=== PATIENT | female | born 1940 | race Caucasian/White ===

== ENCOUNTER 2016-08-17 08:51 | Day surgery (SDC) | payer MEDICARE ==
[2016-08-13 15:18] VITALS: BMI 48.2
[~2016-08-17 08:51] MED LIST: LACTATED RINGERS 1,000 ML IV SCH; LIDOCAINE 1% 20 ML VIAL (10MG/ML) FOR IV START INTRADERMA PRN
[2016-08-17 09:14] VITALS: TEMP 98.3
[2016-08-17 09:43] LABS: Glucose,Whole Blood 87 mg/dL (75-99)
[2016-08-17] MEDS ORDERED: PROPOFOL 10 MG/ML 20 ML VIAL IV ONE (09:48)
[2016-08-17] MEDS ORDERED: GLYCOPYRROLATE 0.2 MG/ML 2 ML VIAL ONE (09:48)
--- NOTE | 2016-08-17 10:01 | P.GSHP ---
History of Present Illness H&P Date: 08/17/16 Chief Complaint: GI bleed, anemia This is a 76-year-old female referred from Dr. Jannette schaeffer. Patient presents today for EGD and colonoscopy. She's had issues with GI bleed and melanotic stool. - Constitutional Constitutional: Reports as per HPI Past Medical History Past Medical History: Atrial Fibrillation, Atrial Flutter, Asthma, Heart Failure , COPD, Diabetes Mellitus, Hyperlipidemia, Hypertension, Osteoarthritis (OA), Pneumonia, Skin Disorder, Sleep Apnea/CPAP/BIPAP Additional Past Medical History / Comment(s): heart valve problem 1 year ago- not sure of name, no cpap used, anemia, "chocolate" color stool, degenerative arthritis, "Bite" swenson on arms-cause unknown, no current rx for diabetes-diet control, leakage of urine, uses walker History of Any Multi-Drug Resistant Organisms: None Reported Past Surgical History: Appendectomy, Bariatric Surgery, Hysterectomy, Joint Replacement, Orthopedic Surgery, Tonsillectomy Additional Past Surgical History / Comment(s): Picc line insertion/later removed , lap band, right knee replacement x 2 & left knee replaced with revision, L ganglion wirst surg., left ankle ORIF, right trigger thumb surg. juan cataracts Past Anesthesia/Blood Transfusion Reactions: Previous Problems w/ Anesthesia Additional Past Anesthesia/Blood Transfusion Reaction / Comment(s): difficulty waking up @times Past Psychological History: Depression Additional Psychological History / Comment(s): . Smoking Status: Never smoker Past Alcohol Use History: Rare Past Drug Use History: None Reported - Past Family History Daughter(s) Family Medical History: Deep Vein Thrombosis (DVT), Pulmonary Embolus Father Family Medical History: Cancer Mother Additional Family Medical History / Comment(s): Mother had hypotension. Medications and Allergies Home Medications Medication Instructions Recorded Confirmed Type Verapamil HCl [Verapamil ER] 120 mg PO DAILY 04/16/14 08/17/16 History Acetaminophen [Tylenol] 325 mg PO Q4H PRN 08/13/16 08/17/16 History Atorvastatin Calcium [Lipitor] 80 mg PO DAILY 08/13/16 08/17/16 History Cholecalciferol [Vitamin D3] 1,000 unit PO DAILY 08/13/16 08/17/16 History Escitalopram [Lexapro] 20 mg PO DAILY 08/13/16 08/17/16 History Lisinopril 40 mg PO DAILY 08/13/16 08/17/16 History Allergies Allergy/AdvReac Type Severity Reaction Status Date / Time thallium-201 Allergy Intermediate Rash/Hives Verified 08/13/16 15:00 Sulfa (Sulfonamide AdvReac Severe low Verified 08/13/16 15:00 Antibiotics) hemoglobin aspirin AdvReac Mild blood in Verified 08/13/16 15:00 stool vancomycin AdvReac Rash/Hives Verified 08/13/16 15:00 steri strips AdvReac Mild blisters Uncoded 08/13/16 15:00 skin Surgical - Exam Vital Signs Temp Pulse Resp BP Pulse Ox 98.3 F 93 16 180/86 95 08/17/16 09:12 08/17/16 09:12 08/17/16 09:12 08/17/16 09:12 08/17/16 09:12 - General well developed, no distress - Eyes PERRL - ENT normal pinna - Neck no masses - Respiratory normal expansion - Cardiovascular Rhythm: regular - Abdomen Abdomen: soft, non tender Assessment and Plan Plan: GI bleed. We'll perform EGD and colonoscopy.
--- NOTE | 2016-08-17 10:29 | P.OP ---
Date of Procedure: 08/17/16 Preoperative Diagnosis: GI bleed Anemia Postoperative Diagnosis: Mild antral gastritis No evidence of upper GI bleed Mild diverticulosis Internal and external hemorrhoids Procedure(s) Performed: EGD Colonoscopy Anesthesia: MAC Surgeon: Jose Lara Pathology: other (Antrum) Condition: stable Disposition: PACU Description of Procedure: The patient's placed on the endoscopy table in the lateral position. She received IV sedation. The gastroscope some placed oropharynx passed in the esophagus and into the stomach. Scope was then placed through the pylorus. The first and second portion of the duodenum. Normal. Scope was then brought back the antrum and this appeared mildly inflamed. A biopsies was performed. Scope was unretroflexed and remainder stomach appeared normal. The GE junction was at 40 cm. The distal esophagus appeared normal. The proximal esophagus. Normal. Scope was withdrawn for patient. Next digital rectal exam was performed which revealed internal and external hemorrhoids. Flexible colonoscope was then placed patient anus passed throughout the entire colon. The ileocecal valve sutures. The cecum, ascending and transverse colon appeared normal. The descending and sigmoid colon had a few scattered diverticula. There is no evidence of GI bleed. Scope was then brought back the rectum and this appeared normal. Scope was withdrawn for patient.
[2016-08-17 10:50] VITALS: BP 141/78; PULSE 92; RESP 18
== END 2016-08-17 11:26 | disposition home or self-care (01) ==
LOC: ORWHC2ENDO 08:51
PROVIDERS: ATTEND Surgery
DX: K29.50 Unspecified chronic gastritis without bleeding (principal); K20.8 Other esophagitis; K57.30 Diverticulosis of large intestine without perforation or abscess without bleeding; K64.8 Other hemorrhoids; K64.4 Residual hemorrhoidal skin tags; D64.9 Anemia, unspecified; Z87.19 Personal history of other diseases of the digestive system; I48.91 Unspecified atrial fibrillation; I48.92 Unspecified atrial flutter; I11.0 Hypertensive heart disease with heart failure; I50.9 Heart failure, unspecified; E78.5 Hyperlipidemia, unspecified; G47.30 Sleep apnea, unspecified; Z98.84 Bariatric surgery status; F32.9 Major depressive disorder, single episode, unspecified; Z79.899 Other long term (current) drug therapy; Z91.09 Other allergy status, other than to drugs and biological substances
CPT/HCPCS: 88305; 88342; 45378; 43239; J2704

== ENCOUNTER → 2018-04-25 | Outpatient (CLI) | payer MEDICARE ==
[2018-04-25 11:08] LABS: HCT 40.1 % (34.0-46.0); HGB 12.7 gm/dL (11.4-16.0); MCH 28.5 pg (25.0-35.0); MCHC 31.7 g/dL (31.0-37.0); MCV 90.1 fL (80.0-100.0); Mean Platelet Volume 6.4; Platelet Count 293 k/uL (150-450); RBC 4.45 m/uL (3.80-5.40); RDW 13.2 % (11.5-15.5); WBC 9.6 k/uL (3.8-10.6)
[2018-04-25 17:05] LABS: Albumin 3.7 g/dL (3.80-4.90); Albumin/Globulin Ratio 1.68 (1.20-2.10); Anion Gap 7.3 mmol/L (4.00-12.00); Calcium 8.7 mg/dL (8.7-10.3); Carbon Dioxide 31.7 mmol/L (21.6-31.8); Globulin 2.2 g/dL (2.1-3.7); Potassium 4.6 mmol/L (3.5-5.5); Total Bilirubin 0.5 mg/dL (0.3-1.2); Total Protein 5.9 g/dL (6.2-8.2)
[2018-04-25 19:48] LABS: Hemoglobin A1C 6.1 % (4.0-6.0)
== END | disposition home or self-care (01) ==
LOC: LABWHC1 10:20
PROVIDERS: ATTEND Physician Assistant Medical
DX: R73.01 Impaired fasting glucose (principal); I10 Essential (primary) hypertension
CPT/HCPCS: 36415; 80053; 83036; 85027

== ENCOUNTER 2018-06-26 12:35 | Inpatient (IN) | payer MEDICARE ==
[2018-06-26] MEDS ORDERED: SODIUM CHLORIDE 0.9% 500 ML 500 ML IV STA (13:26)
--- NOTE | 2018-06-26 13:31 | ED ---
General Adult HPI - General Chief complaint: Weakness Stated complaint: Weakness Time Seen by Provider: 06/26/18 12:40 Source: patient, EMS, RN notes reviewed Mode of arrival: EMS Limitations: no limitations - History of Present Illness Initial comments: This is a 77-year-old female presents emergency department complaining of generalized weakness. Patient states she has needed 5 days she's lost her appetite. Patient states over the last 2 days she's got to the point where she can't stand on her own and she feels as though she could be unstable. Patient stated that this is the main reason she came in because of her generalized weakness. Patient denies any pain. Patient denies chest pain difficulty breathing or shortness of breath per patient denies abdominal pain patient denies any recent nausea vomiting diarrhea. Patient denies any recent fever chills or cough. Patient denies any lightheadedness or dizziness. Patient denies any headache patient denies numbness weakness. Patient states she's got chronic bilateral cellulitis and edema and she states that is unchanged. Patient denies any dysuria hematuria urinary frequency. Patient denies any injury or trauma. - Related Data Home Medications Medication Instructions Recorded Confirmed Lisinopril 20 mg PO DAILY 06/26/18 06/26/18 amLODIPine [Norvasc] 10 mg PO DAILY 06/26/18 06/26/18 Allergies Allergy/AdvReac Type Severity Reaction Status Date / Time thallium-201 Allergy Intermediate Rash/Hives Verified 06/26/18 14:12 Sulfa (Sulfonamide AdvReac Severe low Verified 06/26/18 14:12 Antibiotics) hemoglobin aspirin AdvReac Mild blood in Verified 06/26/18 14:12 stool vancomycin AdvReac Rash/Hives Verified 06/26/18 14:12 steri strips AdvReac Mild blisters Uncoded 06/26/18 12:43 skin Review of Systems ROS Statement: Those systems with pertinent positive or pertinent negative responses have been documented in the HPI. ROS Other: All systems not noted in ROS Statement are negative. Past Medical History Past Medical History: Atrial Fibrillation, Atrial Flutter, Asthma, Heart Failure , COPD, Diabetes Mellitus, Hyperlipidemia, Hypertension, Osteoarthritis (OA), Pneumonia, Skin Disorder, Sleep Apnea/CPAP/BIPAP Additional Past Medical History / Comment(s): heart valve problem 1 year ago- not sure of name, no cpap used, anemia, "chocolate" color stool, degenerative arthritis, "Bite" swenson on arms-cause unknown, no current rx for diabetes-diet control, leakage of urine, uses walker History of Any Multi-Drug Resistant Organisms: None Reported Past Surgical History: Appendectomy, Bariatric Surgery, Hysterectomy, Joint Replacement, Orthopedic Surgery, Tonsillectomy Additional Past Surgical History / Comment(s): Picc line insertion/later removed , lap band, right knee replacement x 2 & left knee replaced with revision, L ganglion wirst surg., left ankle ORIF, right trigger thumb surg. juan cataracts Past Anesthesia/Blood Transfusion Reactions: Previous Problems w/ Anesthesia Additional Past Anesthesia/Blood Transfusion Reaction / Comment(s): difficulty waking up @times Past Psychological History: Depression Smoking Status: Never smoker Past Alcohol Use History: Rare Past Drug Use History: None Reported - Past Family History Daughter(s) Family Medical History: Deep Vein Thrombosis (DVT), Pulmonary Embolus Father Family Medical History: Cancer Mother Additional Family Medical History / Comment(s): Mother had hypotension. General Exam - General Exam Comments Initial Comments: GENERAL: Patient is well-developed and well-nourished. Patient is nontoxic and well- hydrated and is in mild distress. ENT: Neck is soft and supple. No significant lymphadenopathy is noted. Oropharynx is clear. Moist mucous membranes. Neck has full range of motion without eliciting any pain. EYES: The sclera were anicteric and conjunctiva were pink and moist. Extraocular movements were intact and pupils were equal round and reactive to light. Eyelids were unremarkable. PULMONARY: Unlabored respirations. Good breath sounds bilaterally. No audible rales rhonchi or wheezing was noted. CARDIOVASCULAR: There is a regular rate and rhythm without any murmurs gallops or rubs. ABDOMEN: Soft and nontender with normal bowel sounds. No palpable organomegaly was noted. There is no palpable pulsatile mass. SKIN: Patient's bilateral legs show chronic cellulitis and edema +2 patient denies any changes to her legs for quite a while. NEUROLOGIC: Patient is alert and oriented x3. Cranial nerves II through XII are grossly intact. Patient's has equal strength bilaterally of all 4 extremities however the legs are weak overall but there equally weak. Symmetrical smile. MUSCULOSKELETAL: Normal extremities with adequate strength and full range of motion. Bilateral edema with chronic cellulitis. LYMPHATICS: No significant lymphadenopathy is noted PSYCHIATRIC: Normal psychiatric evaluation. Limitations: no limitations Course Vital Signs 06/26/18 06/26/18 06/26/18 12:40 15:30 17:00 Temperature 98.1 F Pulse Rate 102 H 104 H 83 Respiratory 20 20 20 Rate Blood Pressure 175/88 168/87 156/89 O2 Sat by Pulse 99 100 96 Oximetry Medical Decision Making - Medical Decision Making EKG shows sinus tachycardia with occasional PAC at 103 bpm ME interval is on a 50 QRS is 60 QT interval 336 QTC is 440. Patient's EKG shows no ST segment elevation or depression or T-wave abnormalities noted. Patient received 2 g of Rocephin for the urinary tract infection. - Lab Data Result diagrams: 06/26/18 13:20 06/26/18 13:20 Lab Results 06/26/18 06/26/18 06/26/18 Range/Units 13:20 13:20 13:20 WBC 21.3 H (3.8-10.6) k/uL RBC 4.54 (3.80-5.40) m/uL Hgb 13.2 (11.4-16.0) gm/dL Hct 41.5 (34.0-46.0) % MCV 91.3 (80.0-100.0) fL MCH 29.0 (25.0-35.0) pg MCHC 31.8 (31.0-37.0) g/dL RDW 14.7 (11.5-15.5) % Plt Count 271 (150-450) k/uL Neutrophils % 90 % Lymphocytes % 3 % Monocytes % 6 % Eosinophils % 1 % Basophils % 0 % Neutrophils # 19.1 H (1.3-7.7) k/uL Lymphocytes # 0.5 L (1.0-4.8) k/uL Monocytes # 1.2 H (0-1.0) k/uL Eosinophils # 0.2 (0-0.7) k/uL Basophils # 0.0 (0-0.2) k/uL PT (9.0-12.0) sec INR (<1.2) APTT (22.0-30.0) sec Sodium 139 (137-145) mmol/L Potassium 4.1 (3.5-5.1) mmol/L Chloride 99 (98-107) mmol/L Carbon Dioxide 32 H (22-30) mmol/L Anion Gap 8 mmol/L BUN 34 H (7-17) mg/dL Creatinine 0.84 (0.52-1.04) mg/dL Est GFR (CKD-EPI)AfAm 77 (>60 ml/min/1.73 sqM) Est GFR (CKD-EPI)NonAf 67 (>60 ml/min/1.73 sqM) Glucose 97 (74-99) mg/dL Plasma Lactic Acid Maulik (0.7-2.0) mmol/L Calcium 8.8 (8.4-10.2) mg/dL Magnesium 1.8 (1.6-2.3) mg/dL Total Bilirubin 1.1 (0.2-1.3) mg/dL AST 27 (14-36) U/L ALT 27 (9-52) U/L Alkaline Phosphatase 75 (38-126) U/L Total Creatine Kinase 38 (30-135) U/L CK-MB (CK-2) 1.0 (0.0-2.4) ng/mL CK-MB (CK-2) Rel Index 2.6 Troponin I 0.015 (0.000-0.034) ng/mL Total Protein 6.3 (6.3-8.2) g/dL Albumin 3.1 L (3.5-5.0) g/dL Urine Color Urine Appearance (Clear) Urine pH (5.0-8.0) Ur Specific Uledi (1.001-1.035) Urine Protein (Negative) Urine Glucose (UA) (Negative) Urine Ketones (Negative) Urine Blood (Negative) Urine Nitrite (Negative) Urine Bilirubin (Negative) Urine Urobilinogen (<2.0) mg/dL Ur Leukocyte Esterase (Negative) Urine RBC (0-5) /hpf Urine WBC (0-5) /hpf Urine Bacteria (None) /hpf Urine Mucus (None) /hpf 06/26/18 06/26/18 06/26/18 Range/Units 13:20 13:20 13:30 WBC (3.8-10.6) k/uL RBC (3.80-5.40) m/uL Hgb (11.4-16.0) gm/dL Hct (34.0-46.0) % MCV (80.0-100.0) fL MCH (25.0-35.0) pg MCHC (31.0-37.0) g/dL RDW (11.5-15.5) % Plt Count (150-450) k/uL Neutrophils % % Lymphocytes % % Monocytes % % Eosinophils % % Basophils % % Neutrophils # (1.3-7.7) k/uL Lymphocytes # (1.0-4.8) k/uL Monocytes # (0-1.0) k/uL Eosinophils # (0-0.7) k/uL Basophils # (0-0.2) k/uL PT 11.3 (9.0-12.0) sec INR 1.1 (<1.2) APTT 23.1 (22.0-30.0) sec Sodium (137-145) mmol/L Potassium (3.5-5.1) mmol/L Chloride (98-107) mmol/L Carbon Dioxide (22-30) mmol/L Anion Gap mmol/L BUN (7-17) mg/dL Creatinine (0.52-1.04) mg/dL Est GFR (CKD-EPI)AfAm (>60 ml/min/1.73 sqM) Est GFR (CKD-EPI)NonAf (>60 ml/min/1.73 sqM) Glucose (74-99) mg/dL Plasma Lactic Acid Maulik 1.1 (0.7-2.0) mmol/L Calcium (8.4-10.2) mg/dL Magnesium (1.6-2.3) mg/dL Total Bilirubin (0.2-1.3) mg/dL AST (14-36) U/L ALT (9-52) U/L Alkaline Phosphatase (38-126) U/L Total Creatine Kinase (30-135) U/L CK-MB (CK-2) (0.0-2.4) ng/mL CK-MB (CK-2) Rel Index Troponin I (0.000-0.034) ng/mL Total Protein (6.3-8.2) g/dL Albumin (3.5-5.0) g/dL Urine Color Yellow Urine Appearance Cloudy H (Clear) Urine pH 6.0 (5.0-8.0) Ur Specific Uledi 1.027 (1.001-1.035) Urine Protein 1+ H (Negative) Urine Glucose (UA) Negative (Negative) Urine Ketones 1+ H (Negative) Urine Blood Small H (Negative) Urine Nitrite Negative (Negative) Urine Bilirubin 1+ H (Negative) Urine Urobilinogen 6.0 (<2.0) mg/dL Ur Leukocyte Esterase Moderate H (Negative) Urine RBC 8 H (0-5) /hpf Urine WBC 58 H (0-5) /hpf Urine Bacteria Many H (None) /hpf Urine Mucus Many H (None) /hpf Disposition Clinical Impression: Generalized weakness, Urinary tract infection, Bilateral lower leg cellulitis Disposition: ADMITTED IP TO THIS [facility] Time of Disposition: 16:40
[2018-06-26 14:48] LABS: Basophils % (A) 0 %; Eosinophils # (A) 0.2 k/uL (0-0.7); Eosinophils % (A) 1 %; HCT 41.5 % (34.0-46.0); HGB 13.2 gm/dL (11.4-16.0); Lymphocytes # (A) 0.5 k/uL (1.0-4.8); Lymphocytes % (A) 3 %; MCHC 31.8 g/dL (31.0-37.0); MCV 91.3 fL (80.0-100.0); Mean Platelet Volume 6.7; Monocytes # (A) 1.2 k/uL (0-1.0); Monocytes % (A) 6 %; Neutrophils # (A) 19.1 k/uL (1.3-7.7); Neutrophils % (A) 90 %; Platelet Count 271 k/uL (150-450); RBC 4.54 m/uL (3.80-5.40); RDW 14.7 % (11.5-15.5); WBC 21.3 k/uL (3.8-10.6)
[2018-06-26 14:56] LABS: INR 1.1 (<1.2); Partial Thromboplastin Time 23.1 sec (22.0-30.0); Prothrombin Time 11.3 sec (9.0-12.0)
[2018-06-26 14:57] LABS: Albumin 3.1 g/dL (3.5-5.0); Calcium 8.8 mg/dL (8.4-10.2); Magnesium 1.8 mg/dL (1.6-2.3); Potassium 4.1 mmol/L (3.5-5.1); Total Bilirubin 1.1 mg/dL (0.2-1.3); Total Protein 6.3 g/dL (6.3-8.2)
[2018-06-26 15:16] LABS: Appearance,Urine Cloudy (Clear); Bacteria,Urine Many /hpf; Bilirubin,Urine 1+ (Negative); Blood,Urine Small (Negative); Color,Urine Yellow; Glucose,Urine (UA) Negative (Negative); Ketones,Urine 1+ (Negative); Leukocyte Esterase,Urine Moderate (Negative); Mucus,Urine Many /hpf; Nitrite,Urine Negative (Negative); Protein,Urine 1+ (Negative); RBC,Urine 8 /hpf (0-5); Specific Gravity,Urine 1.027 (1.001-1.035); WBC,Urine 58 /hpf (0-5)
[2018-06-26 15:17] LABS: Troponin I 0.015 ng/mL (0.000-0.034)
--- NOTE | 2018-06-26 15:40 | XR ---
EXAMINATION TYPE: XR chest 2V DATE OF EXAM: 06/26/2018 COMPARISON: 04/05/2015 INDICATION: Weakness, short of breath TECHNIQUE: Frontal and lateral views of the chest are obtained. FINDINGS: The heart size is normal. The pulmonary vasculature is normal. There is mild elevation of the right diaphragm. There may be a mild posterior right infiltrate. Corre late clinically. IMPRESSION: 1. Clinical correlation recommended for right lower lobe infiltrate. Pneumonia or atelectasis could b e considered. 2. Lungs otherwise appear clear
[2018-06-26] MEDS ORDERED: SODIUM CHLORIDE 0.9% 1,000 ML IV ONE (16:42)
[2018-06-27 03:15] LABS: Basophils % (A) 0 %; Eosinophils # (A) 0.1 k/uL (0-0.7); Eosinophils % (A) 1 %; HCT 38.6 % (34.0-46.0); HGB 12.3 gm/dL (11.4-16.0); Hypochromasia Slight; Lymphocytes # (A) 0.5 k/uL (1.0-4.8); Lymphocytes % (A) 4 %; MCH 29.1 pg (25.0-35.0); MCHC 31.9 g/dL (31.0-37.0); MCV 91.3 fL (80.0-100.0); Mean Platelet Volume 5.9; Monocytes # (A) 0.8 k/uL (0-1.0); Monocytes % (A) 7 %; Neutrophils % (A) 86 %; Platelet Count 253 k/uL (150-450); RBC 4.23 m/uL (3.80-5.40); RDW 14.3 % (11.5-15.5); WBC 10.6 k/uL (3.8-10.6)
[2018-06-27] MEDS: amLODIPine 10 MG TAB PO SCH (09:43)
[2018-06-27] MEDS: LISINOPRIL 20 MG TAB PO SCH (09:43)
--- NOTE | 2018-06-27 10:46 | P.HPIM ---
History of Present Illness H&P Date: 06/27/18 This is a 77-year-old female patient of Dr. Palm. Patient patient presents to the emergency room with complaints of increased weakness and poor appetite for 5 days. Patient is a poor historian but does report that she had increased weakness with no appetite that progressively got worse over the past 2 days. Patient does have past medical history of A. fib and flutter but the patient reports that she is not currently on anticoagulation. Additional medical history includes asthma, heart failure, COPD, diabetes mellitus, hyperlipidemia , hypertension, osteoporosis, pneumonia, skin disorder, sleep apnea and depression. Patient's urinary analysis positive for a UTI. Urine culture ordered. Initial white blood cell 21.3. Repeat this a.m. 10.6. Patient's lactic acid 1.1. EKG completed showing sinus tachycardia with premature atrial complexes. Chest x-ray completed showing clinical correlation recommended for right lower lobe infiltrate. Pneumonia or atelectasis could be considered lungs otherwise appear clear. Patient is having low-grade temps. Patient started on Rocephin. This time patient denies any nausea or vomiting. Patient denies chest pain or shortness breath. Denies any urinary burning or frequency. Review of Systems Please refer to HPI otherwise unremarkable Past Medical History Past Medical History: Atrial Fibrillation, Atrial Flutter, Asthma, Heart Failure , COPD, Diabetes Mellitus, Hyperlipidemia, Hypertension, Osteoarthritis (OA), Pneumonia, Skin Disorder, Sleep Apnea/CPAP/BIPAP Additional Past Medical History / Comment(s): heart valve problem 1 year ago- not sure of name, no cpap used, anemia, "chocolate" color stool, degenerative arthritis, "Bite" swenson on arms-cause unknown, no current rx for diabetes-diet control, leakage of urine, uses walker History of Any Multi-Drug Resistant Organisms: None Reported Past Surgical History: Appendectomy, Bariatric Surgery, Hysterectomy, Joint Replacement, Orthopedic Surgery, Tonsillectomy Additional Past Surgical History / Comment(s): Picc line insertion/later removed , lap band, right knee replacement x 2 & left knee replaced with revision, L ganglion wirst surg., left ankle ORIF, right trigger thumb surg. juan cataracts Past Anesthesia/Blood Transfusion Reactions: Previous Problems w/ Anesthesia Additional Past Anesthesia/Blood Transfusion Reaction / Comment(s): difficulty waking up @times Past Psychological History: Depression Additional Psychological History / Comment(s): . Smoking Status: Never smoker Past Alcohol Use History: Rare Past Drug Use History: None Reported - Past Family History Daughter(s) Family Medical History: Deep Vein Thrombosis (DVT), Pulmonary Embolus Father Family Medical History: Cancer Mother Additional Family Medical History / Comment(s): Mother had hypotension. Medications and Allergies Home Medications Medication Instructions Recorded Confirmed Type Lisinopril 20 mg PO DAILY 06/26/18 06/26/18 History amLODIPine [Norvasc] 10 mg PO DAILY 06/26/18 06/26/18 History Allergies Allergy/AdvReac Type Severity Reaction Status Date / Time thallium-201 Allergy Intermediate Rash/Hives Verified 06/26/18 14:12 Sulfa (Sulfonamide AdvReac Severe low Verified 06/26/18 14:12 Antibiotics) hemoglobin aspirin AdvReac Mild blood in Verified 06/26/18 14:12 stool vancomycin AdvReac Rash/Hives Verified 06/26/18 14:12 steri strips AdvReac Mild blisters Uncoded 06/26/18 12:43 skin Physical Exam Vitals: Vital Signs Temp Pulse Pulse Resp BP BP Pulse Ox 06/27/18 05:39 99.6 F 104 H 28 H 115/70 95 06/27/18 03:00 99.7 F H 109 H 26 H 122/74 94 L 06/26/18 23:20 99.0 F 105 H 28 H 106/67 94 L 06/26/18 18:13 98.0 F 102 H 24 173/76 99 06/26/18 17:30 101 H 20 146/85 99 06/26/18 17:00 98.1 F 83 20 156/89 96 06/26/18 15:30 104 H 20 168/87 100 06/26/18 12:40 102 H 20 175/88 99 Intake and Output 06/26/18 06/27/18 06/27/18 22:59 06:59 14:59 Intake Total 120 Balance 120 Intake: Oral 120 Other: Voiding Method Bedpan # Voids 1 3 # Bowel Movements 0 Head normocephalic Neck supple Lungs clear to auscultation bilaterally no wheezing or crackles Heart regular rate and rhythm S1-S2, no rub or gallop Abdomen is soft nontender nondistended positive bowel sounds no hepatosplenomegaly Extremities no edema Neuro alert and orientated to 3 Results CBC & Chem 7: 06/27/18 02:55 06/26/18 13:20 Labs: Abnormal Lab Results - Last 24 Hours (Table) 06/26/18 06/26/18 06/26/18 Range/Units 13:20 13:20 13:30 WBC 21.3 H (3.8-10.6) k/uL Neutrophils # 19.1 H (1.3-7.7) k/uL Lymphocytes # 0.5 L (1.0-4.8) k/uL Monocytes # 1.2 H (0-1.0) k/uL Carbon Dioxide 32 H (22-30) mmol/L BUN 34 H (7-17) mg/dL Albumin 3.1 L (3.5-5.0) g/dL Urine Appearance Cloudy H (Clear) Urine Protein 1+ H (Negative) Urine Ketones 1+ H (Negative) Urine Blood Small H (Negative) Urine Bilirubin 1+ H (Negative) Ur Leukocyte Esterase Moderate H (Negative) Urine RBC 8 H (0-5) /hpf Urine WBC 58 H (0-5) /hpf Urine Bacteria Many H (None) /hpf Urine Mucus Many H (None) /hpf 06/27/18 Range/Units 02:55 WBC (3.8-10.6) k/uL Neutrophils # 9.0 H (1.3-7.7) k/uL Lymphocytes # 0.5 L (1.0-4.8) k/uL Monocytes # (0-1.0) k/uL Carbon Dioxide (22-30) mmol/L BUN (7-17) mg/dL Albumin (3.5-5.0) g/dL Urine Appearance (Clear) Urine Protein (Negative) Urine Ketones (Negative) Urine Blood (Negative) Urine Bilirubin (Negative) Ur Leukocyte Esterase (Negative) Urine RBC (0-5) /hpf Urine WBC (0-5) /hpf Urine Bacteria (None) /hpf Urine Mucus (None) /hpf Thrombosis Risk Factor Assmnt - Choose All That Apply Each Factor Represents 1 point: Abnormal pulmonary function (COPD), Medical pt on bed rest, Obesity (BMI >25) Each Risk Factor Represents 3 Points: Age 75 years or older, Family history of DVT/PE Thrombosis Risk Factor Assessment Total Risk Factor Score: 9 Thrombosis Risk Factor Assessment Level: High Risk Assessment and Plan Assessment: 1. Urinary tract infection with generalized weakness. Patient started on Rocephin. Urine culture ordered. Blood culture ordered. Patient started on Rocephin for IV antibiotics. Normal saline at 75 2. 2. Possible pneumonia. Repeat 2 view chest x-ray has been ordered. 3. History of paroxysmal atrial fibrillation. Patient denies being on anticoagulation. Cardiology services have been consulted. D-dimer has been ordered 4. History of mitral valve endocarditis in 2014. Patient was transferred to [facility] at that time. Patient at this time denies following up with cardiology services. Cardiology services have been consulted 5. History of asthma 6. History of COPD 7. History of hyperlipidemia 8. History of essential hypertension 9. History of sleep apnea 10. History of depression DVT prophylaxis Lovenox. GI prophylaxis Protonix. Cardiology services have been consulted. Repeat 2 view chest x-ray ordered D-dimer ordered Time with Patient: Greater than 30 (Greater than 60% of the total time spent in counseling and coordination of care. I performed an examination of the patient and discussed their management with the Nurse Practitioner. I have reviewed the Nurse Practitioner's notes and agree with the documented findings and plan of care)
[2018-06-27 10:53] LABS: ALT 25 U/L (9-52); AST 19 U/L (14-36); Albumin 2.7 g/dL (3.5-5.0); Alkaline Phosphatase 59 U/L (38-126); Anion Gap 3 mmol/L; Blood Urea Nitrogen 27 mg/dL (7-17); Calcium 8.2 mg/dL (8.4-10.2); Carbon Dioxide 32 mmol/L (22-30); Chloride 104 mmol/L (98-107); Glucose 84 mg/dL (74-99); Potassium 4.3 mmol/L (3.5-5.1); Sodium 139 mmol/L (137-145); Total Bilirubin 0.6 mg/dL (0.2-1.3); Total Protein 5.6 g/dL (6.3-8.2)
--- NOTE | 2018-06-27 13:45 | CT ---
CT CHEST FOR PULMONARY EMBOLISM. EXAMINATION TYPE: CT chest angio for PE DATE OF EXAM: 06/27/2018 INDICATION: Difficulty breathing, elevated d-dimer. CT DLP: 570 mGycm, Automated exposure control for dose reduction was used. CONTRAST: Patient injected with 100 mL of Isovue 370. COMPARISON: None TECHNIQUE: CT of the chest is performed on a spiral scan at 2 mm thick sections. Study is performed with intravenous contrast timed for evaluation for pulmonary embolism. This will limit additional po rtions of the evaluation. 3-D MIP images reconstructed by the technologist are reviewed on the compu ter in the coronal and sagittal planes. FINDINGS: No persistent filling defects are evident to suggest an acute pulmonary embolism. Enlarged pretracheal lymph node present measuring 1.3 cm. Additional shotty lymphadenopathy is within the mediastinum. The ascending aorta diameter at the level of the main pulmonary artery is 4.0 cm. The main pulmonary artery diameter at the bifurcation is 3.1 cm. No suspicious infiltrates are present. There is a calcification in the posterior left apex. Small right pleural effusion is present. Some compressive atelectasis is adjacent at the right lung b ase. Limited CT sections are obtained through the upper abdomen. Some ascites is adjacent to the liver. L AP-BAND is present. Small amount of ascites is adjacent to the spleen. Pulmonary results were provided to the referring nurse practitioner attending physician in person at the time of pulmonary interpretation. IMPRESSIONS: 1. No acute pulmonary embolism. 2. Enlarged mediastinal adenopathy. 3. Small right pleural effusion. 4. Ascites 5. Ascending thoracic aorta measures 4.0 cm.
--- NOTE | 2018-06-27 14:20 | XR ---
EXAMINATION TYPE: XR chest 2V DATE OF EXAM: 06/27/2018 COMPARISON: 06/26/[address] of the chest dated 06/27/2018 HISTORY: Follow-up for possible pneumonia TECHNIQUE: Frontal and lateral views of the chest are obtained. FINDINGS: There is haziness at the right costophrenic angle on the lateral view. Double density is s een underlying the right hemidiaphragm. Right hemidiaphragm elevation is again noted with generalized hypoventilatory lungs. This accentuates the pulmonary vasculature. There is prominence of the right paratracheal stripe. IMPRESSION: 1. Persistent right basilar opacity on the lateral view only may represent atelectasis or pneumonia. 2. Prominence of the right paratracheal stripe that when correlated with the chest CT of 06/27/2018 re presents both adenopathy and vascular prominence. 3. Ascites creates a double density of the right hemidiaphragm, ascites, and liver margin.
[2018-06-27] MEDS: ENOXAPARIN 40 MG/0.4 ML SYRINGE SQ SCH (14:46)
--- NOTE | 2018-06-27 15:49 | P.CNPUL ---
History of Present Illness Consult date: 06/27/18 Reason for consult: dyspnea, COPD, hypoxemia, pneumonia, obstructive sleep apnea Chief complaint: Elevated d-dimer History of present illness: Morbidly obese 77-year-old female seen eval reexamined on fourth floor patient is in process of being transferred to [facility] data predominantly has been obtained from the chart, presents emergency department complaining of generalized weakness. Patient states she has needed 5 days she's lost her appetite. Patient states over the last 2 days she's got to the point where she can't stand on her own and she feels as though she could be unstable. Patient stated that this is the main reason she came in because of her generalized weakness. Patient denies any pain. Patient denies chest pain difficulty breathing or shortness of breath per patient denies abdominal pain patient denies any recent nausea vomiting diarrhea. Patient denies any recent fever chills or cough. Patient denies any lightheadedness or dizziness. Patient denies any headache patient denies numbness weakness. Patient states she's got chronic bilateral cellulitis and edema and she states that is unchanged. Patient denies any dysuria hematuria urinary frequency. Patient denies any injury or trauma. Patient does have past medical history of A. fib and flutter but the patient reports that she is not currently on anticoagulation. Additional medical history includes asthma, heart failure, COPD, diabetes mellitus, hyperlipidemia, hypertension, osteoporosis, pneumonia, skin disorder, sleep apnea and depression. Patient's urinary analysis positive for a UTI. Urine culture ordered. Initial white blood cell 21.3. Repeat this a.m. 10.6. Patient's lactic acid 1.1. EKG completed showing sinus tachycardia with premature atrial complexes. Chest x-ray completed showing clinical correlation recommended for right lower lobe infiltrate. Pneumonia or atelectasis could be considered lungs otherwise appear clear. Patient is having low-grade temps. Patient started on Rocephin. This time patient denies any nausea or vomiting. Patient denies chest pain or shortness breath. Denies any urinary burning or frequency. She has been noted to have extensive erythematous edema of both lower extremity especially on the left side consistent with cellulitis would recommend to add vancomycin as well I suspect elevated d-dimer is likely related to ongoing inflammatory process however would recommend to continue treat her with aggressive DVT prophylaxis noted that duplex ultrasound lower extremities pending Review of Systems All systems: negative Past Medical History Past Medical History: Atrial Fibrillation, Atrial Flutter, Asthma, Heart Failure , COPD, Diabetes Mellitus, Hyperlipidemia, Hypertension, Osteoarthritis (OA), Pneumonia, Skin Disorder, Sleep Apnea/CPAP/BIPAP Additional Past Medical History / Comment(s): heart valve problem 1 year ago- not sure of name, no cpap used, anemia, "chocolate" color stool, degenerative arthritis, "Bite" swenson on arms-cause unknown, no current rx for diabetes-diet control, leakage of urine, uses walker History of Any Multi-Drug Resistant Organisms: None Reported Past Surgical History: Appendectomy, Bariatric Surgery, Hysterectomy, Joint Replacement, Orthopedic Surgery, Tonsillectomy Additional Past Surgical History / Comment(s): Picc line insertion/later removed , lap band, right knee replacement x 2 & left knee replaced with revision, L ganglion wirst surg., left ankle ORIF, right trigger thumb surg. juan cataracts Past Anesthesia/Blood Transfusion Reactions: Previous Problems w/ Anesthesia Additional Past Anesthesia/Blood Transfusion Reaction / Comment(s): difficulty waking up @times Past Psychological History: Depression Additional Psychological History / Comment(s): . Smoking Status: Never smoker Past Alcohol Use History: Rare Past Drug Use History: None Reported - Past Family History Daughter(s) Family Medical History: Deep Vein Thrombosis (DVT), Pulmonary Embolus Father Family Medical History: Cancer Mother Additional Family Medical History / Comment(s): Mother had hypotension. Medications and Allergies Home Medications Medication Instructions Recorded Confirmed Type Lisinopril 20 mg PO DAILY 06/26/18 06/26/18 History amLODIPine [Norvasc] 10 mg PO DAILY 06/26/18 06/26/18 History Allergies Allergy/AdvReac Type Severity Reaction Status Date / Time thallium-201 Allergy Intermediate Rash/Hives Verified 06/26/18 14:12 Sulfa (Sulfonamide AdvReac Severe low Verified 06/26/18 14:12 Antibiotics) hemoglobin aspirin AdvReac Mild blood in Verified 06/26/18 14:12 stool vancomycin AdvReac Rash/Hives Verified 06/26/18 14:12 steri strips AdvReac Mild blisters Uncoded 06/26/18 12:43 skin Physical Exam Vitals: Vital Signs Temp Pulse Pulse Resp BP BP Pulse Ox 06/27/18 15:04 18 06/27/18 08:00 18 06/27/18 05:39 99.6 F 104 H 28 H 115/70 95 06/27/18 03:00 99.7 F H 109 H 26 H 122/74 94 L 06/26/18 23:20 99.0 F 105 H 28 H 106/67 94 L 06/26/18 18:13 98.0 F 102 H 24 173/76 99 06/26/18 17:30 101 H 20 146/85 99 06/26/18 17:00 98.1 F 83 20 156/89 96 Intake and Output 06/27/18 06/27/18 06/27/18 06:59 14:59 22:59 Intake Total 120 Balance 120 Intake: Oral 120 Other: Voiding Method Bedpan Bedpan Incontinent # Voids 3 2 GENERAL: Patient is well-developed and well-nourished. Patient is nontoxic and well- hydrated and is in mild distress. ENT: Neck is soft and supple. No significant lymphadenopathy is noted. Oropharynx is clear. Moist mucous membranes. Neck has full range of motion without eliciting any pain. EYES: The sclera were anicteric and conjunctiva were pink and moist. Extraocular movements were intact and pupils were equal round and reactive to light. Eyelids were unremarkable. PULMONARY: Unlabored respirations. Good breath sounds bilaterally. No audible rales rhonchi or wheezing was noted. CARDIOVASCULAR: There is a regular rate and rhythm without any murmurs gallops or rubs. ABDOMEN: Soft and nontender with normal bowel sounds. No palpable organomegaly was noted. There is no palpable pulsatile mass. SKIN: Patient's bilateral legs show chronic cellulitis and edema +2 patient denies any changes to her legs for quite a while. NEUROLOGIC: Patient is alert and oriented x3. Cranial nerves II through XII are grossly intact. Patient's has equal strength bilaterally of all 4 extremities however the legs are weak overall but there equally weak. Symmetrical smile. MUSCULOSKELETAL: Bilateral edema with chronic cellulitis. More so on the left side compared right side LYMPHATICS: No significant lymphadenopathy is noted PSYCHIATRIC: Normal psychiatric evaluation. Results - Laboratory Findings CBC and BMP: 06/27/18 02:55 06/27/18 10:18 PT/INR, D-dimer PT 11.3 sec (9.0-12.0) 06/26/18 13:20 INR 1.1 (<1.2) 06/26/18 13:20 D-Dimer 3.57 mg/L FEU (<0.60) H 06/27/18 11:26 Abnormal lab findings: Abnormal Labs 06/26/18 06/26/18 06/26/18 13:20 13:20 13:30 WBC 21.3 H Neutrophils # 19.1 H Lymphocytes # 0.5 L Monocytes # 1.2 H D-Dimer Carbon Dioxide 32 H BUN 34 H Calcium Total Protein Albumin 3.1 L Urine Appearance Cloudy H Urine Protein 1+ H Urine Ketones 1+ H Urine Blood Small H Urine Bilirubin 1+ H Ur Leukocyte Esterase Moderate H Urine RBC 8 H Urine WBC 58 H Urine Bacteria Many H Urine Mucus Many H 06/27/18 06/27/18 06/27/18 02:55 10:18 11:26 WBC Neutrophils # 9.0 H Lymphocytes # 0.5 L Monocytes # D-Dimer 3.57 H Carbon Dioxide 32 H BUN 27 H Calcium 8.2 L Total Protein 5.6 L Albumin 2.7 L Urine Appearance Urine Protein Urine Ketones Urine Blood Urine Bilirubin Ur Leukocyte Esterase Urine RBC Urine WBC Urine Bacteria Urine Mucus - Diagnostic Findings Chest x-ray: report reviewed, image reviewed CT scan - chest: report reviewed, image reviewed (Finding as noted above) Assessment and Plan Assessment: Severe sepsis associated with multifactorial processes including right lower lobe pneumonia as well as extensive cellulitis of the lower extremity Right lower lobe pneumonia Extensive cellulitis of bilateral lower extremity more so on the left side compared right side Morbid obesity Acute hypoxic respiratory failure likely related to multifactorial issues and processes as noted above Elevated d-dimer related to ongoing chronic inflammatory process given that spiral computed tomography scan of the chest negative for pulmonary embolism, pulmonary embolism is less likely however agree with evaluating for deep venous thrombosis Severe UTI Paroxysmal atrial fibrillation Chronic persistent asthma severe COPD Hypertension hypertensive cardiovascular disease Obstructive sleep apnea Plan: Bronchodilators IV steroids Broad-spectrum antibiotics to be continued will add IV vancomycin to cover possible MRSA Continued DVT prophylaxis encase however if duplex ultrasound lower x-ray positive for DVT in his thromboses we'll consider transfer switching to a largerer dose Lovenox as per body weight Time with Patient: Greater than 30
[2018-06-27] MEDS: methylPREDNISolone SOD SUCCI 125 MG/2 ML VIAL IV SCH ×2 (16:05→23:55)
--- NOTE | 2018-06-27 16:48 | US ---
EXAMINATION TYPE: US venous doppler duplex LE BI DATE OF EXAM: 06/27/2018 4:17 PM COMPARISON: NONE CLINICAL HISTORY: r/o dvt, elevated ddimer. Elevated d dimer, exam done portable, morbidly obese reza ent SIDE PERFORMED: Bilateral TECHNIQUE: The lower extremity deep venous system is examined utilizing real time linear array sonog jose with graded compression, doppler sonography and color-flow sonography. VESSELS IMAGED: External Iliac Vein (EIV) Common Femoral Vein Deep Femoral Vein Greater Saphenous Vein * Femoral Vein Popliteal Vein Small Saphenous Vein * Proximal Calf Veins (* superficial vessels) Difficult and limited study due to patient body habitus and leg swelling. Right Leg: Visualized portions appear negative for DVT, limited visualization of popliteal vein due to knee swelling Left Leg: Appears negative for DVT IMPRESSION: No evidence of deep venous thrombosis in both legs.
[2018-06-27] MEDS: IPRATROPIUM-ALBUTEROL 3 ML NEB INHALATION SCH ×2 (17:08→20:05)
[2018-06-27] MEDS ORDERED: ACETAMINOPHEN TAB 325 MG TAB PO PRN (17:21)
[2018-06-27] MEDS: ACETAMINOPHEN TAB 500 MG TAB PO PRN (17:54)
[2018-06-27] MEDS ORDERED: FUROSEMIDE 10 MG/ML 2 ML VIAL IV ONE (18:00)
--- NOTE | 2018-06-27 19:11 | ECHOF ---
Referral Reason:Follow-up history of endocarditis MEASUREMENTS -------- HEIGHT: 162.6 cm WEIGHT: 113.4 kg BP: 115/70 RVIDd: 4.2 cm (< 3.3) IVSd: 1.5 cm (0.6 - 1.1) LVIDd: 3.2 cm (3.9 - 5.3) LVPWd: 1.3 cm (0.6 - 1.1) IVSs: 1.7 cm LVIDs: 2.0 cm LVPWs: 1.6 cm LAESV Index (A-L): 33.60 ml/m Ao Diam: 3.3 cm (2.0 - 3.7) AV Cusp: 1.3 cm (1.5 - 2.6) MV EXCURSION: 13.015 mm (> 18.000) MV EF SLOPE: 50 mm/s (70 - 150) EPSS: 0.2 cm MV E Viet: 1.35 m/s MV DecT: 402 ms MV A Viet: 1.76 m/s MV E/A Ratio: 0.76 AV maxP.13 mmHg AV meanP.28 mmHg RAP: 15.00 mmHg RVSP: 86.30 mmHg FINDINGS -------- Sinus rhythm. This was a technically good study. The left ventricular size is normal. There is moderate concentric left ventricular hypertrophy. O verall left ventricular systolic function is normal with, an EF between 60 - 65 %. The right ventricle is severely enlarged. LA is moderately dilated 34-39 ml/m2 The right atrium is normal in size. There is mild aortic valve sclerosis. Trace to mild aortic regurgitation. There is mild aortic st enosis present. Peak/mean gradient across the Aortic Valve is 27.13mmHg / 12.28mmHg. The mitral valve leaflets are moderately thickened. Severe mitral annular calcification present. Mild mitral regurgitation is present. The peak and mean MV gradients are 16.92mmHg 7.89mmHg as woody sured by doppler. [id number] mitral stenosis. Moderate tricuspid regurgitation present. There is severe pulmonary hypertension. The right ventr icular systolic pressure, as measured by Doppler, is 86.30mmHg. The pulmonic valve was not well visualized. The aortic root size is normal. The inferior vena cava is dilated with no significant inspiratory collapse which is consistent estima radha right atrial pressure of >15 mmHg. CONCLUSIONS -------- 1. Sinus rhythm. 2. This was a technically good study. 3. The left ventricular size is normal. 4. There is moderate concentric left ventricular hypertrophy. 5. Overall left ventricular systolic function is normal with, an EF between 60 - 65 %. 6. The right ventricle is severely enlarged. 7. LA is moderately dilated 34-39 ml/m2 8. The right atrium is normal in size. 9. There is mild aortic valve sclerosis. 10. Trace to mild aortic regurgitation. 11. There is mild aortic stenosis present. 12. Peak/mean gradient across the Aortic Valve is 27.13mmHg / 12.28mmHg. 13. The mitral valve leaflets are moderately thickened. 14. Severe mitral annular calcification present. 15. Mild mitral regurgitation is present. 16. The peak and mean MV gradients are 16.92mmHg 7.89mmHg as measured by doppler. 17. Moderate tricuspid regurgitation present. 18. There is severe pulmonary hypertension. 19. The right ventricular systolic pressure, as measured by Doppler, is 86.30mmHg. 20. The pulmonic valve was not well visualized. 21. The aortic root size is normal. 22. The inferior vena cava is dilated with no significant inspiratory collapse which is consistent es timated right atrial pressure of >15 mmHg. ACTIVE DIRECTORY ARCHITECT: Marsha Biswas RDCS
[2018-06-27 20:42] LABS: Glucose,Whole Blood 116 mg/dL (75-99)
[2018-06-27] MEDS: DAPTOmycin 500 MG in SODIUM CHLORIDE 0.9% 50 ML IVPB SCH (20:48)
[2018-06-28 00:22] LABS: ABG HCO3 35 mmol/L (21-25); ABG PH 7.22 (7.35-7.45); ABG PO2 87 mmHg (83-108); ABG TCO2 37 mmol/L (19-24)
[2018-06-28 00:26] LABS: ABG PCO2 85 mmHg (35-45)
[2018-06-28] MEDS ORDERED: HALOPERIDOL LACTATE 5 MG/ML 1 ML VIAL IVP ONE ×2 (01:10→07:00)
[2018-06-28] MEDS ORDERED: DILTIAZEM DRIP BOLUS FROM BAG 1 MG SOLN IV ONE (03:11)
[2018-06-28] MEDS ORDERED: DILTIAZEM 125 MG in SODIUM CHLORIDE 0.9% 100 ML IV SCH (03:15)
[2018-06-28] MEDS: NOREPINEPHRINE 4 MG in SODIUM CHLORIDE 0.9% 250 ML IV SCH (03:30)
[2018-06-28] MEDS ORDERED: NALOXONE 0.4 MG/ML 1 ML VIAL IV PRN (03:44)
[2018-06-28] MEDS: PROPOFOL 1,000 MG in EMPTY BAG 1 BAG IV SCH ×5 (03:45→18:41)
[2018-06-28 03:51] LABS: Glucose,Whole Blood 111 mg/dL (75-99)
[2018-06-28 04:49] LABS: ABG Base Excess 2.7 mmol/L; ABG HCO3 29 mmol/L (21-25); ABG PCO2 54 mmHg (35-45); ABG PH 7.33 (7.35-7.45); ABG PO2 >400 mmHg (83-108); ABG TCO2 30 mmol/L (19-24)
[2018-06-28 05:02] LABS: Basophils % (A) 0 %; Eosinophils # (A) 0.1 k/uL (0-0.7); Eosinophils % (A) 1 %; HCT 43.8 % (34.0-46.0); HGB 13.4 gm/dL (11.4-16.0); Hypochromasia Moderate; Lymphocytes # (A) 0.3 k/uL (1.0-4.8); Lymphocytes % (A) 4 %; MCH 28.2 pg (25.0-35.0); MCHC 30.6 g/dL (31.0-37.0); MCV 92.4 fL (80.0-100.0); Mean Platelet Volume 6.2; Monocytes # (A) 0.1 k/uL (0-1.0); Monocytes % (A) 2 %; Neutrophils # (A) 7.5 k/uL (1.3-7.7); Neutrophils % (A) 93 %; Platelet Count 345 k/uL (150-450); RBC 4.75 m/uL (3.80-5.40); RDW 14.1 % (11.5-15.5); WBC 8.1 k/uL (3.8-10.6)
--- NOTE | 2018-06-28 05:12 | XR ---
EXAM: XR Chest, 1 View CLINICAL HISTORY: Tube placement TECHNIQUE: Frontal view of the chest. COMPARISON: 07/25/2018. FINDINGS: Lungs: Subsegmental changes at the left base are noted, increased from previous exam. Elevation the right hemidiaphragm remains. The prominent interstitial pattern is somewhat improved from previous exam. Pleural space: Unremarkable. No pneumothorax. Heart: Cardiomegaly with presumed accentuation by portable technique. Mediastinum: Calcification of the aortic arch is stable. The mediastinal contours are otherwise unchanged. Bones/joints: Unremarkable. Tubes, lines and devices: A presumed endotracheal tube is noted in the proximal right mainstem bronchus. Recommend retraction of approximately 4 cm. A presumed nasogastric tube traverses the mediastinum and extends below the diaphragms. IMPRESSION: A presumed endotracheal tube is noted in the proximal right mainstem bronchus. Recommend retraction of approximately 4 cm. Resulting subsegmental changes at the left base are presumed related to endotracheal tube positioning. [employer] 06/28/18 05:14 Call Nurse Called CLARENCE Nichols on 06/28 05:12 (-05: 00) 06/28/18 05:14 Verify Receipt with Nurse Called CLARENCE Nichols on 06/28 05:12 (-05:00)
[2018-06-28] MEDS ORDERED: NOREPINEPHRINE 4 MG in SODIUM CHLORIDE 0.9% 250 ML IV SCH (05:15)
[2018-06-28 05:16] LABS: Calcium 8.3 mg/dL (8.4-10.2); Magnesium 1.8 mg/dL (1.6-2.3); Phosphorus 5.5 mg/dL (2.5-4.5); Potassium 4.8 mmol/L (3.5-5.1); Total Bilirubin 0.7 mg/dL (0.2-1.3); Total Protein 6.1 g/dL (6.3-8.2)
--- NOTE | 2018-06-28 05:45 | XR ---
EXAM: XR Chest, 1 View CLINICAL HISTORY: Placement of ET tube TECHNIQUE: Frontal view of the chest. COMPARISON: 0431 hrs. FINDINGS: Lungs: Diminished lung volumes with subsegmental changes at the left base, slightly reduced. Pleural space: Unremarkable. No pneumothorax. Heart: Stable cardiac size. Mediastinum: Mediastinal contours are stable. Bones/joints: Unremarkable. Tubes, lines and devices: The endotracheal tube is been retracted from the previous exam with the tip now approximately 3.5 cm from the tucker in appropriate position. Orogastric tube traverses the mediastinum and extends in the superior abdomen. The tip is not identified. IMPRESSION: The endotracheal tube is been retracted from the previous exam with the tip now approximately 3.5 cm from the tucker in appropriate position.
[2018-06-28] MEDS ORDERED: Magnesium Replacement Protocol 1 EACH MISC MISCELLANE PRN (06:40)
[2018-06-28] MEDS: IPRATROPIUM-ALBUTEROL 3 ML NEB INHALATION SCH ×4 (07:06→19:00)
[2018-06-28 07:15] LABS: Appearance,Urine Clear (Clear); Bilirubin,Urine Negative (Negative); Blood,Urine Negative (Negative); Color,Urine Yellow; Glucose,Urine (UA) Negative (Negative); Hyaline Casts,Urine 45 /lpf (0-2); Ketones,Urine 1+ (Negative); Leukocyte Esterase,Urine Negative (Negative); Mucus,Urine Occasional /hpf; Nitrite,Urine Negative (Negative); Protein,Urine 1+ (Negative); RBC,Urine 2 /hpf (0-5); Squamous Epithelial Cell,Urine 1 /hpf (0-4); Urobilinogen,Urine <2.0 mg/dL (<2.0)
[2018-06-28] MEDS: MAGNESIUM SULFATE-D5W PMX 1 GM in DEXTROSE/WATER 1 100ML.BAG IVPB SCH ×2 (07:15→09:02)
[2018-06-28] MEDS ORDERED: SUCCINYLCHOLINE CHLORIDE VIAL 200 MG/10 ML VIAL IV ONE (07:17)
[2018-06-28] MEDS ORDERED: ETOMIDATE 2 MG/ML 10 ML VIAL ONE (07:17)
[2018-06-28] MEDS ORDERED: ROCURONIUM BROMIDE 10 MG/ML 10 ML VIAL IV ONE (07:17)
[2018-06-28] MEDS ORDERED: PANTOPRAZOLE 40 MG TABLET PO SCH (07:30)
[2018-06-28] MEDS ORDERED: ENOXAPARIN 40 MG/0.4 ML SYRINGE SQ SCH (09:00)
[2018-06-28] MEDS: methylPREDNISolone SOD SUCCI 125 MG/2 ML VIAL IV SCH ×2 (09:03→18:38)
[2018-06-28] MEDS: CHLORHEXIDINE GLUCONATE 15 ML CUP MUCOUS MEM SCH ×2 (09:03→20:09)
[2018-06-28] MEDS: PANTOPRAZOLE 40 MG/10 ML VIAL IVP SCH (09:03)
[2018-06-28] MEDS: ENOXAPARIN 40 MG/0.4 ML SYRINGE SQ SCH (09:03)
--- NOTE | 2018-06-28 09:46 | CONS ---
CONSULTATION DATE OF SERVICE: 06/27/2018. REASON FOR CONSULTATION: UTI and lower extremity cellulitis. HISTORY OF PRESENT ILLNESS: The patient is a 77-year-old female presenting to the ER at [facility] with history of chief complaint of generalized weakness and low appetite. These symptoms have been going on for the last five days but has acutely got worse in the last 2 days to the point the patient could not could not stand up and she was feeling unstable. The patient denies having any chest pain or shortness of breath, cough. No nausea, vomiting. No abdominal pain. She is noted to have more swelling in the legs with some erythema. With these symptoms the patient was evaluated by the ER physician. On arrival to the ER, the patient has been afebrile with low-grade fever of 99.7. The patient's white count was elevated at 21.3. She did have a positive UA with moderate leukocytes, 58 WBCs with many bacteria. Influenza serology was negative. Blood and urinary culture have been obtained and currently pending. The patient also had venous Doppler. Those were negative. Patient also had a CT angiogram that was negative for PE and did not show any evidence of pneumonia. The patient treated with Rocephin 1 g daily. Infectious Disease was consulted for further antibiotics both for the UTI as well as lower extremity cellulitis as patient did have history of ALLERGY TO VANCOMYCIN. REVIEW OF SYSTEMS: Positive points have been mentioned in HPI. Rest of the systems has been negative. PAST MEDICAL HISTORY: Atrial fibrillation, atrial flutter, heart failure, COPD, diabetes mellitus, hypertension, hyperlipidemia, osteoarthritis, pneumonia, sleep apnea. PAST SURGICAL HISTORY: Appendectomy, bariatric surgery, hysterectomy, tonsillectomy, PICC line insertion with subsequent removal, left ankle ORIF. SOCIAL HISTORY: Remote history of smoking. Rarely drinks. No drug use. FAMILY HISTORY: Daughter with history of , the father history of cancer. ALLERGIES: To SULFA, VANCOMYCIN. MEDICATIONS: The patient is currently on Tylenol, DuoNeb, Norvasc, Rocephin 1 g daily, Lovenox, Zestril, Solu-Medrol, Protonix. PHYSICAL EXAMINATION: Blood pressure is 155/76 with a pulse of 106, temperature 98.6. He is 93% on 5 L nasal cannula. General description is an elderly female, lying in bed in no distress. No tachypnea or accessory muscle of respiration use. HEENT: Shows pallor. No scleral icterus. Oral mucosa is dry. No pharyngeal erythema or thrush. NECK: Trachea central. No thyromegaly. LUNGS: Unlabored breathing. Clear to auscultation anteriorly. HEART: S1, S2. Regular rate and rhythm. ABDOMEN: Soft, no tenderness. EXTREMITIES: Bilateral leg swelling. Dry scaly skin. Some superficial ulceration. No foul smelling drainage. NEUROLOGICAL: Patient is awake, alert, oriented x3. Mood and affect normal. LABS: Hemoglobin 12.2, white count 1.3. On admission BUN of 27, creatinine 0.71. Electrolytes have been normal. Liver enzymes are normal. UA was positive. Influenza serology negative. Lower extremity Doppler negative. DIAGNOSTIC IMPRESSION AND PLAN: Patient with acute generalized weakness, no energy. Symptoms are multifactorial in this patient who did have a component of both urinary tract infection and more likely from a gram-negative enteric pathogen and also lower extremity cellulitis more likely from a gram-positive skin nicholas. This patient unfortunately does have ALLERGY TO VANCOMYCIN limiting the number of antibiotics that can be safely used. PLAN: 1. Rocephin 2 g daily. This should cover both cellulitis and UTI. However, in addition will cover with daptomycin 4 mg/kg. 2. Gentle IV fluid. 3. We will follow up on the clinical condition and culture to further adjust medication if needed. Thank you for this consultation. Will follow this patient along with you. MMODL / IJN: [id number] /
--- NOTE | 2018-06-28 10:43 | P.PN ---
Subjective Progress Note Date: 06/28/18 This is a 77-year-old female patient of Dr. Palm. Patient patient presents to the emergency room with complaints of increased weakness and poor appetite for 5 days. Patient is a poor historian but does report that she had increased weakness with no appetite that progressively got worse over the past 2 days. Patient does have past medical history of A. fib and flutter but the patient reports that she is not currently on anticoagulation. Additional medical history includes asthma, heart failure, COPD, diabetes mellitus, hyperlipidemia , hypertension, osteoporosis, pneumonia, skin disorder, sleep apnea and depression. Patient's urinary analysis positive for a UTI. Urine culture ordered. Initial white blood cell 21.3. Repeat this a.m. 10.6. Patient's lactic acid 1.1. EKG completed showing sinus tachycardia with premature atrial complexes. Chest x-ray completed showing clinical correlation recommended for right lower lobe infiltrate. Pneumonia or atelectasis could be considered lungs otherwise appear clear. Patient is having low-grade temps. Patient started on Rocephin. This time patient denies any nausea or vomiting. Patient denies chest pain or shortness breath. Denies any urinary burning or frequency. On 06/28/2018 patient was transferred to [facility] last night. During the night patient was found to have increased lethargy, hypotension and A. fib with RVR. Patient was 17 and transferred to the intensive care unit where she was intubated and started on levothyroxine and cardioverted. Patient is currently resting on ventilation with sedation. Family is at bedside. Per patient's daughter Priscilla patient has been noncompliant with her medication and CPAP machine at home. Cardiology, critical care infectious disease is following Objective - Vital Signs Vital signs: Vital Signs Temp 97.9 F 06/28/18 08:00 Pulse 77 06/28/18 09:30 Resp 20 06/28/18 09:30 BP 65/39 06/28/18 03:34 Pulse Ox 100 06/28/18 09:30 Intake & Output 06/27/18 06/28/18 06/28/18 18:59 06:59 18:59 Intake Total 120 92.175 286.872 Output Total 100 103 Balance 120 -7.825 183.872 Weight 115 kg Intake: IV 229 0.9 NS 20 0.9% NS Pressure bag 9 Magnesium Sulfate-D5w Pmx 200 1 gm In Dextrose/Water 1 100ml.bag @ 100 mls/hr IVPB Q1H [facility] Rx#: [id number] Intake, IV Titration 92.175 57.872 Amount Norepinephrine 4 mg In 59.4 15.84 Sodium Chloride 0.9% 250 ml @ 0.05 MCG/KG/MIN 21.6 mls/hr IV .[id number] [facility] Rx#:[id number] Propofol 1,000 mg In 32.775 42.032 Empty Bag 1 bag @ Titrate IV .Q0M [facility] Rx#: [id number] Oral 120 Output: Urine 100 103 Uretheral (Jaimes) 100 Other: Voiding Method Bedpan Indwelling Catheter Incontinent # Voids 2 2 ABP, PAP, CO, CI - Last Documented Arterial Blood Pressure 99/47 - Exam Head normocephalic Neck supple Lungs patient is currently on mechanical ventilation with sedation Heart regular rate and rhythm S1-S2, no rub or gallop Abdomen is soft nontender nondistended positive bowel sounds no hepatosplenomegaly Extremities no edema. bilaterall lower extremity cellulitis - Labs CBC & Chem 7: 06/28/18 04:50 06/28/18 04:50 Labs: Abnormal Lab Results - Last 24 Hours (Table) 06/27/18 06/27/18 06/27/18 Range/Units 10:18 11:26 20:40 MCHC (31.0-37.0) g/dL Lymphocytes # (1.0-4.8) k/uL D-Dimer 3.57 H (<0.60) mg/L FEU ABG pH (7.35-7.45) ABG pCO2 (35-45) mmHg ABG pO2 (83-108) mmHg ABG HCO3 (21-25) mmol/L ABG Total CO2 (19-24) mmol/L ABG O2 Saturation (94-97) % Carbon Dioxide 32 H (22-30) mmol/L BUN 27 H (7-17) mg/dL Glucose (74-99) mg/dL POC Glucose (mg/dL) 116 H (75-99) mg/dL Calcium 8.2 L (8.4-10.2) mg/dL Phosphorus (2.5-4.5) mg/dL Total Protein 5.6 L (6.3-8.2) g/dL Albumin 2.7 L (3.5-5.0) g/dL Urine Protein (Negative) Urine Ketones (Negative) Hyaline Casts (0-2) /lpf Urine Mucus (None) /hpf 06/28/18 06/28/18 06/28/18 Range/Units 00:17 03:49 04:45 MCHC (31.0-37.0) g/dL Lymphocytes # (1.0-4.8) k/uL D-Dimer (<0.60) mg/L FEU ABG pH 7.22 L 7.33 L (7.35-7.45) ABG pCO2 85 H* 54 H (35-45) mmHg ABG pO2 >400 H (83-108) mmHg ABG HCO3 35 H 29 H (21-25) mmol/L ABG Total CO2 37 H 30 H (19-24) mmol/L ABG O2 Saturation 100.0 H (94-97) % Carbon Dioxide (22-30) mmol/L BUN (7-17) mg/dL Glucose (74-99) mg/dL POC Glucose (mg/dL) 111 H (75-99) mg/dL Calcium (8.4-10.2) mg/dL Phosphorus (2.5-4.5) mg/dL Total Protein (6.3-8.2) g/dL Albumin (3.5-5.0) g/dL Urine Protein (Negative) Urine Ketones (Negative) Hyaline Casts (0-2) /lpf Urine Mucus (None) /hpf 06/28/18 06/28/18 06/28/18 Range/Units 04:50 04:50 06:05 MCHC 30.6 L (31.0-37.0) g/dL Lymphocytes # 0.3 L (1.0-4.8) k/uL D-Dimer (<0.60) mg/L FEU ABG pH (7.35-7.45) ABG pCO2 (35-45) mmHg ABG pO2 (83-108) mmHg ABG HCO3 (21-25) mmol/L ABG Total CO2 (19-24) mmol/L ABG O2 Saturation (94-97) % Carbon Dioxide (22-30) mmol/L BUN 28 H (7-17) mg/dL Glucose 137 H (74-99) mg/dL POC Glucose (mg/dL) (75-99) mg/dL Calcium 8.3 L (8.4-10.2) mg/dL Phosphorus 5.5 H (2.5-4.5) mg/dL Total Protein 6.1 L (6.3-8.2) g/dL Albumin 3.0 L (3.5-5.0) g/dL Urine Protein 1+ H (Negative) Urine Ketones 1+ H (Negative) Hyaline Casts 45 H (0-2) /lpf Urine Mucus Occasional H (None) /hpf Microbiology - Last 24 Hours (Table) 06/28/18 04:55 Sputum Culture - Preliminary Sputum 06/27/18 16:15 Gram Stain - Preliminary Leg - Right Wound Culture - Preliminary 06/26/18 17:25 Blood Culture - Preliminary Blood No Growth after 24 hours 06/27/18 14:20 Urine Culture - Preliminary Urine,Voided Assessment and Plan Assessment: 1. Acute hypoxic respiratory failure. CTA negative for PE. Patient maintained on mechanical ventilation at this time. Dr. Piper covering for pulmonary critical care 2. Severe sepsis associated with multifactorial process including pneumonia, UTI and cellulitis. Infectious disease is following. Patient currently on daptomycin and Rocephin 3. History of paroxysmal atrial fibrillation. Patient denies being on anticoagulation. Cardiology services have been consulted. D-dimer has been ordered 4. History of mitral valve endocarditis in 2014. Patient was transferred to [facility] at that time. Patient at this time denies following up with cardiology services. Cardiology services have been consulted 5. History of asthma 6. History of COPD 7. History of hyperlipidemia 8. History of essential hypertension 9. History of sleep apnea. Per patient's daughter patient noncompliant with CPAP machine at home 10. History of depression 11. Atrial fibrillation with rapid ventricular response. Patient was cardioverted 3 times and started on Cardizem. Cardiology services are following. At this time patient is in sinus rhythm. Cardizem drip has been DC' d due to hypotension. 2-D echo completed showing an EF of 60-65% with severe pulmonary hypertension. 12. Hypotension likely related to sepsis and A. fib with RVR. Patient currently maintained on Levaquin 5 for pressure support DVT prophylaxis Lovenox. GI prophylaxis Protonix. Critical care, cardiology and infectious disease following Patient remains in the intensive care unit at this time I performed an examination of the patient and discussed their management with the Nurse Practitioner. I have reviewed the Nurse Practitioner's notes and agree with the documented findings and plan of care
[2018-06-28] MEDS ORDERED: DEXTROSE 5% IN WATER 100 ML with AMIODARONE 150 MG IV ONE (11:45)
[2018-06-28 12:13] LABS: Glucose,Whole Blood 151 mg/dL (75-99)
[2018-06-28] MEDS: SODIUM CHLORIDE 0.9% 1,000 ML IV SCH ×2 (12:25→20:09)
[2018-06-28] MEDS: amLODIPine 10 MG TAB PO SCH (12:27)
[2018-06-28] MEDS: LISINOPRIL 20 MG TAB PO SCH (12:27)
[2018-06-28] MEDS ORDERED: INSULIN ASPART (NovoLOG) 100 UNIT/ML VIAL SQ SCH ×2 (12:45→15:00)
[2018-06-28] MEDS: APIXABAN 5 MG TAB PO SCH ×2 (13:18→20:09)
--- NOTE | 2018-06-28 13:22 | P.PN ---
Subjective Progress Note Date: 06/28/18 Morbidly obese 77-year-old female seen eval reexamined on fourth floor patient is in process of being transferred to [facility] data predominantly has been obtained from the chart, presents emergency department complaining of generalized weakness. Patient states she has needed 5 days she's lost her appetite. Patient states over the last 2 days she's got to the point where she can't stand on her own and she feels as though she could be unstable. Patient stated that this is the main reason she came in because of her generalized weakness. Patient denies any pain. Patient denies chest pain difficulty breathing or shortness of breath per patient denies abdominal pain patient denies any recent nausea vomiting diarrhea. Patient denies any recent fever chills or cough. Patient denies any lightheadedness or dizziness. Patient denies any headache patient denies numbness weakness. Patient states she's got chronic bilateral cellulitis and edema and she states that is unchanged. Patient denies any dysuria hematuria urinary frequency. Patient denies any injury or trauma. Patient does have past medical history of A. fib and flutter but the patient reports that she is not currently on anticoagulation. Additional medical history includes asthma, heart failure, COPD, diabetes mellitus, hyperlipidemia, hypertension, osteoporosis, pneumonia, skin disorder, sleep apnea and depression. Patient's urinary analysis positive for a UTI. Urine culture ordered. Initial white blood cell 21.3. Repeat this a.m. 10.6. Patient's lactic acid 1.1. EKG completed showing sinus tachycardia with premature atrial complexes. Chest x-ray completed showing clinical correlation recommended for right lower lobe infiltrate. Pneumonia or atelectasis could be considered lungs otherwise appear clear. Patient is having low-grade temps. Patient started on Rocephin. This time patient denies any nausea or vomiting. Patient denies chest pain or shortness breath. Denies any urinary burning or frequency. She has been noted to have extensive erythematous edema of both lower extremity especially on the left side consistent with cellulitis would recommend to add vancomycin as well I suspect elevated d-dimer is likely related to ongoing inflammatory process however would recommend to continue treat her with aggressive DVT prophylaxis noted that duplex ultrasound lower extremities pending 06/28/2018: Patient seen and examined in the intensive care unit with nursing staff at bedside. Patient is seen and covering for Dr. Piper. The patient was intubated overnight due to respiratory distress. Patient was unable to tolerate BiPAP and became confused. The patient had an acute on chronic hypoxic and hypercapnic respiratory failure. She is currently tolerating a sedation holiday. She does follow complex commands. The patient will remain on the ventilator today. We will attempt another sedation holiday and spontaneous breathing trial in the morning. She is oxygenating well. Her hypercapnia is improving. Cardiology is initiating amiodarone drip. Lovenox has been discontinued and L Aquinas has been started for atrial fibrillation. Lower extremity Dopplers and CT of the chest are negative for DVT and PE. Objective - Vital Signs Vital signs: Vital Signs Temp 97.9 F 06/28/18 08:00 Pulse 71 06/28/18 11:22 Resp 20 06/28/18 09:30 BP 65/39 06/28/18 03:34 Pulse Ox 100 06/28/18 09:30 Intake & Output 06/27/18 06/28/18 06/28/18 18:59 06:59 18:59 Intake Total 120 92.175 449.512 Output Total 100 103 Balance 120 -7.825 346.512 Weight 115 kg Intake: IV 229 0.9 NS 20 0.9% NS Pressure bag 9 Magnesium Sulfate-D5w Pmx 200 1 gm In Dextrose/Water 1 100ml.bag @ 100 mls/hr IVPB Q1H [facility] Rx#: [id number] Intake, IV Titration 92.175 220.512 Amount Norepinephrine 4 mg In 59.4 78.48 Sodium Chloride 0.9% 250 ml @ 0.05 MCG/KG/MIN 21.6 mls/hr IV .[id number] [facility] Rx#:[id number] Propofol 1,000 mg In 32.775 142.032 Empty Bag 1 bag @ Titrate IV .Q0M [facility] Rx#: [id number] Oral 120 Output: Urine 100 103 Uretheral (Jaimes) 100 Other: Voiding Method Bedpan Indwelling Catheter Incontinent # Voids 2 2 ABP, PAP, CO, CI - Last Documented Arterial Blood Pressure 99/47 - Exam Gen.: Patient is sedated on ventilator, she does follow complex commands Cardiovascular: Irregular rate and rhythm, S1/S2 Lungs: Diminished breath sounds bilaterally Abdomen: Soft nontender nondistended positive bowel sounds Extremities: 2-3+ pitting edema with cellulitis and chronic venous stasis, stasis dermatitis - Labs CBC & Chem 7: 06/28/18 04:50 06/28/18 04:50 Labs: Abnormal Lab Results - Last 24 Hours (Table) 06/27/18 06/28/18 06/28/18 Range/Units 20:40 00:17 03:49 MCHC (31.0-37.0) g/dL Lymphocytes # (1.0-4.8) k/uL ABG pH 7.22 L (7.35-7.45) ABG pCO2 85 H* (35-45) mmHg ABG pO2 (83-108) mmHg ABG HCO3 35 H (21-25) mmol/L ABG Total CO2 37 H (19-24) mmol/L ABG O2 Saturation (94-97) % BUN (7-17) mg/dL Glucose (74-99) mg/dL POC Glucose (mg/dL) 116 H 111 H (75-99) mg/dL Calcium (8.4-10.2) mg/dL Phosphorus (2.5-4.5) mg/dL Total Protein (6.3-8.2) g/dL Albumin (3.5-5.0) g/dL Urine Protein (Negative) Urine Ketones (Negative) Hyaline Casts (0-2) /lpf Urine Mucus (None) /hpf 06/28/18 06/28/18 06/28/18 Range/Units 04:45 04:50 04:50 MCHC 30.6 L (31.0-37.0) g/dL Lymphocytes # 0.3 L (1.0-4.8) k/uL ABG pH 7.33 L (7.35-7.45) ABG pCO2 54 H (35-45) mmHg ABG pO2 >400 H (83-108) mmHg ABG HCO3 29 H (21-25) mmol/L ABG Total CO2 30 H (19-24) mmol/L ABG O2 Saturation 100.0 H (94-97) % BUN 28 H (7-17) mg/dL Glucose 137 H (74-99) mg/dL POC Glucose (mg/dL) (75-99) mg/dL Calcium 8.3 L (8.4-10.2) mg/dL Phosphorus 5.5 H (2.5-4.5) mg/dL Total Protein 6.1 L (6.3-8.2) g/dL Albumin 3.0 L (3.5-5.0) g/dL Urine Protein (Negative) Urine Ketones (Negative) Hyaline Casts (0-2) /lpf Urine Mucus (None) /hpf 06/28/18 06/28/18 Range/Units 06:05 12:11 MCHC (31.0-37.0) g/dL Lymphocytes # (1.0-4.8) k/uL ABG pH (7.35-7.45) ABG pCO2 (35-45) mmHg ABG pO2 (83-108) mmHg ABG HCO3 (21-25) mmol/L ABG Total CO2 (19-24) mmol/L ABG O2 Saturation (94-97) % BUN (7-17) mg/dL Glucose (74-99) mg/dL POC Glucose (mg/dL) 151 H (75-99) mg/dL Calcium (8.4-10.2) mg/dL Phosphorus (2.5-4.5) mg/dL Total Protein (6.3-8.2) g/dL Albumin (3.5-5.0) g/dL Urine Protein 1+ H (Negative) Urine Ketones 1+ H (Negative) Hyaline Casts 45 H (0-2) /lpf Urine Mucus Occasional H (None) /hpf Microbiology - Last 24 Hours (Table) 06/28/18 04:55 Sputum Culture - Preliminary Sputum 06/27/18 16:15 Gram Stain - Preliminary Leg - Right Wound Culture - Preliminary 06/26/18 17:25 Blood Culture - Preliminary Blood No Growth after 24 hours 06/27/18 14:20 Urine Culture - Preliminary Urine,Voided Assessment and Plan Assessment: Acute on chronic hypoxic and hypercapnic respiratory failure requiring mechanical ventilation Severe sepsis associated with multifactorial processes including right lower lobe pneumonia as well as extensive cellulitis of the lower extremity Respiratory acidosis Severe pulmonary hypertension Right lower lobe pneumonia Extensive cellulitis of bilateral lower extremity more so on the left side compared right side Morbid obesity Elevated d-dimer related to ongoing chronic inflammatory process given that spiral computed tomography scan of the chest negative for pulmonary embolism, dopplers negative for DVT UTI Paroxysmal atrial fibrillation, s/p cardioversion Chronic persistent asthma severe COPD Hypertension hypertensive cardiovascular disease Obstructive sleep apnea/Obesity hypoventilation syndrome Moderate PCM Plan: Continue full ventilator support, sedation holiday and SBT in AM Bronchodilators Cardizem off and amio started per cardiology recommendations IV steroids Initiate tube feeds Rocephin and Dapto per ID DC Lovenox and initiate Eliquis for Afib, no evidence of PE/DVT SCDs and Protonix IVF at 100 cc/hr Decrease FiO2 to 40% SSC insulin for BS control Wound care Sputum culture Continue to monitor in the ICU
--- NOTE | 2018-06-28 14:19 | P.CRDCN ---
History of Present Illness Consult date: 06/28/18 Consult reason: atrial fibrillation History of present illness: his is a 77-year-old female who is seen for cardiac evaluation in atrial fibrillation with a rapid ventricular response. this patient was admitted initially with the chief complaint of generalized weakness and low appetite his since symptoms got worse for last 2 days. Patient also notes was noticed to have some swelling in the legs with some erythema. Patient was admitted with the diagnosis of urosepsis influenza syndrome serologically was negative since white count was 21,[address] angiogram that was negative for PE patient has a possible past history of for infective endocarditis. Or during the night patient developed atrial fibrillation with a rapid ventricular response and hypotension. She also was in acute respiratory distress. Patient was transferred to the intensive care unit she was intubated. Patient was subsequently cardioverted with 100 J to the normal sinus rhythm isn' t has remained hemodynamically stable since then is currently on a small dose of for levo fed patient had echocardiogram done which revealed normal left ventricular systolic function. Past Medical History Past Medical History: Atrial Fibrillation, Atrial Flutter, Asthma, Heart Failure , COPD, Diabetes Mellitus, Hyperlipidemia, Hypertension, Osteoarthritis (OA), Pneumonia, Skin Disorder, Sleep Apnea/CPAP/BIPAP Additional Past Medical History / Comment(s): heart valve problem 1 year ago- not sure of name, no cpap used, anemia, "chocolate" color stool, degenerative arthritis, "Bite" swenson on arms-cause unknown, no current rx for diabetes-diet control, leakage of urine, uses walker History of Any Multi-Drug Resistant Organisms: None Reported Past Surgical History: Appendectomy, Bariatric Surgery, Hysterectomy, Joint Replacement, Orthopedic Surgery, Tonsillectomy Additional Past Surgical History / Comment(s): Picc line insertion/later removed , lap band, right knee replacement x 2 & left knee replaced with revision, L ganglion wirst surg., left ankle ORIF, right trigger thumb surg. juan cataracts Past Anesthesia/Blood Transfusion Reactions: Previous Problems w/ Anesthesia Additional Past Anesthesia/Blood Transfusion Reaction / Comment(s): difficulty waking up @times Past Psychological History: Depression Additional Psychological History / Comment(s): . Smoking Status: Never smoker Past Alcohol Use History: Rare Past Drug Use History: None Reported - Past Family History Daughter(s) Family Medical History: Deep Vein Thrombosis (DVT), Pulmonary Embolus Father Family Medical History: Cancer Mother Additional Family Medical History / Comment(s): Mother had hypotension. Medications and Allergies Home Medications Medication Instructions Recorded Confirmed Type Lisinopril 20 mg PO DAILY 06/26/18 06/26/18 History amLODIPine [Norvasc] 10 mg PO DAILY 06/26/18 06/26/18 History Allergies Allergy/AdvReac Type Severity Reaction Status Date / Time thallium-201 Allergy Intermediate Rash/Hives Verified 06/26/18 14:12 Sulfa (Sulfonamide AdvReac Severe low Verified 06/26/18 14:12 Antibiotics) hemoglobin aspirin AdvReac Mild blood in Verified 06/26/18 14:12 stool vancomycin AdvReac Rash/Hives Verified 06/26/18 14:12 steri strips AdvReac Mild blisters Uncoded 06/26/18 12:43 skin Physical Exam Vitals: Vital Signs Temp Pulse Pulse Resp BP Pulse Ox 06/28/18 11:22 71 06/28/18 09:30 77 20 100 06/28/18 09:15 73 20 100 06/28/18 09:00 66 20 100 06/28/18 08:45 64 20 100 06/28/18 08:30 67 20 100 06/28/18 08:15 64 20 100 06/28/18 08:00 97.9 F 64 20 100 06/28/18 07:45 70 20 100 06/28/18 07:30 73 20 100 06/28/18 07:15 67 20 100 06/28/18 07:06 65 06/28/18 07:00 67 16 100 06/28/18 06:45 64 20 100 06/28/18 06:30 64 20 100 06/28/18 06:15 62 20 100 06/28/18 06:00 60 20 100 06/28/18 05:45 64 20 100 06/28/18 05:30 61 20 100 06/28/18 05:15 61 20 100 06/28/18 05:00 69 20 100 06/28/18 04:45 71 20 100 06/28/18 04:36 63 20 100 06/28/18 03:34 170 H 65/39 84 L 06/28/18 03:29 173 H 40 H 45/34 06/28/18 03:22 163 H 24 80/43 06/28/18 03:18 160 H 36 H 06/28/18 03:11 98.6 F 160 H 36 H 101/74 100 06/28/18 01:26 24 98 06/28/18 00:15 99 06/28/18 00:00 98.6 F 103 H 22 100 06/27/18 21:38 98 06/27/18 20:23 100 06/27/18 20:05 100 91 L 06/27/18 20:00 99.4 F 103 H 24 126/59 81 L 06/27/18 17:11 106 H 48 H 06/27/18 15:31 98.6 F 106 H 48 H 155/76 93 L 06/27/18 15:04 18 Intake and Output 06/27/18 06/28/18 06/28/18 22:59 06:59 14:59 Intake Total 92.175 449.512 Output Total 100 103 Balance -7.825 346.512 Intake: IV 229 0.9 NS 20 0.9% NS Pressure bag 9 Magnesium Sulfate-D5w Pmx 200 1 gm In Dextrose/Water 1 100ml.bag @ 100 mls/hr IVPB Q1H [facility] Rx#: [id number] Intake, IV Titration 92.175 220.512 Amount Norepinephrine 4 mg In 59.4 78.48 Sodium Chloride 0.9% 250 ml @ 0.05 MCG/KG/MIN 21.6 mls/hr IV .[id number] [facility] Rx#:[id number] Propofol 1,000 mg In 32.775 142.032 Empty Bag 1 bag @ Titrate IV .Q0M [facility] Rx#: [id number] Output: Urine 100 103 Uretheral (Jaimes) 100 Other: Voiding Method Bedpan Indwelling Catheter Incontinent # Voids 2 2 Weight 115 kg ABP, PAP, CO, CI - Last 8 Hours Arterial Blood Pressure 99/47 Arterial Blood Pressure 118/60 Arterial Blood Pressure 109/54 Arterial Blood Pressure 105/53 Arterial Blood Pressure 105/55 Arterial Blood Pressure 105/54 Arterial Blood Pressure 105/55 Arterial Blood Pressure 107/53 Arterial Blood Pressure 130/66 Arterial Blood Pressure 129/61 Arterial Blood Pressure 116/57 Arterial Blood Pressure 103/55 Arterial Blood Pressure 106/56 Arterial Blood Pressure 99/48 patient is currently intubated C is currently not in any acute respiratory distress Patient's vital signs are reviewed. The patient is alert awake and in no acute distress. HEENT negative. Neck-supple no increase in JVP noted no carotid bruits noted. Chest-symmetrical. Heart-first and second heart sounds are normal. No S3 or S4 is noted. No significant murmurs are noted. Lungs bilateral good at entry is noted. No rales or rhonchi are noted Abdomen-soft. Liver and spleen are not enlarged. The bowel sounds are normal. No tenderness noted Extremities-peripheral pulses since are 2+. No significant leg edema noted. Neuro-no significant gross abnormality noted. Results 06/28/18 04:50 06/28/18 04:50 Cardiac Enzymes 06/28/18 Range/Units 04:50 AST 26 (14-36) U/L CBC 06/28/18 Range/Units 04:50 WBC 8.1 (3.8-10.6) k/uL RBC 4.75 (3.80-5.40) m/uL Hgb 13.4 (11.4-16.0) gm/dL Hct 43.8 (34.0-46.0) % Plt Count 345 (150-450) k/uL Comprehensive Metabolic Panel 06/28/18 Range/Units 04:50 Sodium 141 (137-145) mmol/L Potassium 4.8 (3.5-5.1) mmol/L Chloride 103 (98-107) mmol/L Carbon Dioxide 27 (22-30) mmol/L BUN 28 H (7-17) mg/dL Creatinine 0.92 (0.52-1.04) mg/dL Glucose 137 H (74-99) mg/dL Calcium 8.3 L (8.4-10.2) mg/dL AST 26 (14-36) U/L ALT 25 (9-52) U/L Alkaline Phosphatase 67 (38-126) U/L Total Protein 6.1 L (6.3-8.2) g/dL Albumin 3.0 L (3.5-5.0) g/dL Current Medications Generic Name Dose Route Start Last Admin Trade Name Freq PRN Reason Stop Dose Admin Acetaminophen 500 mg 06/27/18 17:24 06/27/18 17:54 Tylenol Tab PO 500 mg Q6HR PRN Administration Fever and/ or Mild Pain Albuterol/Ipratropium 3 ml 06/27/18 14:06 Duoneb 0.5 Mg-3 Mg/3 Ml Soln INHALATION RT-Q2H PRN Shortness Of Breath Or Wheezing Albuterol/Ipratropium 3 ml 06/27/18 16:00 06/28/18 11:22 Duoneb 0.5 Mg-3 Mg/3 Ml Soln INHALATION 3 ml RT-QID [facility] Administration Apixaban 5 mg 06/28/18 11:45 06/28/18 13:18 Eliquis PO 5 mg BID [facility] Administration Chlorhexidine Gluconate 15 ml 06/28/18 09:00 06/28/18 09:03 Peridex MUCOUS MEM 15 ml BID [facility] Administration Ceftriaxone Sodium 2 gm/ 50 mls @ 100 mls/hr 06/28/18 09:00 06/28/18 13:23 Sodium Chloride IVPB 100 mls/hr Q24HR [facility] Administration Daptomycin 500 mg/ Sodium 50 mls @ 100 mls/hr 06/27/18 18:30 06/27/18 20:48 Chloride IVPB 100 mls/hr Q24HR@1800 [facility] Administration Protocol Propofol 1,000 mg/ IV Solution 100 mls @ 0 mls/hr 06/28/18 04:00 06/28/18 12: 41 IV Infused .Q0M [facility] Titration Protocol Titrate Norepinephrine Bitartrate 4 mg 254 mls @ 21.6 mls/hr 06/28/18 03:30 06/28/18 13:00 / Sodium Chloride IV 0.02 mcg/kg/min .[id number] [facility] 8.64 mls/hr Titration Protocol 0.05 MCG/KG/MIN Sodium Chloride 1,000 mls @ 100 mls/hr 06/28/18 11:45 06/28/18 12:25 Saline 0.9% IV 100 mls/hr .Q10H [facility] Administration Insulin Aspart 0 unit 06/28/18 12:45 06/28/18 13:18 Novolog SQ 2 unit Q6H [facility] Administration Protocol Methylprednisolone Sodium Succinate 60 mg 06/27/18 16:00 06/28/18 09:03 Solu-Medrol IV 60 mg Q8HR [facility] Administration Miscellaneous Information 1 each 06/28/18 06:40 Magnesium Per Protocol MISCELLANE DAILY PRN Per Protocol Protocol Naloxone HCl 0.2 mg 06/28/18 03:44 Narcan IV Q2M PRN Opioid Reversal Pantoprazole Sodium 40 mg 06/28/18 09:00 06/28/18 09:03 Protonix IVP 40 mg DAILY [facility] Administration Intake and Output 06/27/18 06/28/18 06/28/18 22:59 06:59 14:59 Intake Total 92.175 449.512 Output Total 100 103 Balance -7.825 346.512 Intake: IV 229 0.9 NS 20 0.9% NS Pressure bag 9 Magnesium Sulfate-D5w Pmx 200 1 gm In Dextrose/Water 1 100ml.bag @ 100 mls/hr IVPB Q1H [facility] Rx#: [id number] Intake, IV Titration 92.175 220.512 Amount Norepinephrine 4 mg In 59.4 78.48 Sodium Chloride 0.9% 250 ml @ 0.05 MCG/KG/MIN 21.6 mls/hr IV .[id number] [facility] Rx#:[id number] Propofol 1,000 mg In 32.775 142.032 Empty Bag 1 bag @ Titrate IV .Q0M [facility] Rx#: [id number] Output: Urine 100 103 Uretheral (Jaimes) 100 Other: Voiding Method Bedpan Indwelling Catheter Incontinent # Voids 2 2 Weight 115 kg 06/28/18 04:50 06/28/18 04:50 EKG Interpretations (text) patient's EKG showed evidence of poor atrial fibrillation with a rapid ventricular rate Assessment and Plan Assessment: his patient developed atrial fibrillation with a rapid ventricular response during the night associated with the hypotension and respiratory distress. Sent is currently hemodynamically stable. Levothroid is being hold off. We will hold the patient's blood pressure medications as he is stable for 24 hours. View of the patient's past history of atrial fibrillation. We will start the patient onEliquis 5 mg twice a day
[2018-06-28] MEDS ORDERED: SODIUM CHLORIDE 0.9% 500 ML 500 ML IV ONE (16:14)
[2018-06-28 18:16] LABS: Glucose,Whole Blood 158 mg/dL (75-99)
[2018-06-28] MEDS: INSULIN ASPART (NovoLOG) 100 UNIT/ML VIAL SQ SCH (18:37)
[2018-06-28] MEDS: DAPTOmycin 500 MG in SODIUM CHLORIDE 0.9% 50 ML IVPB SCH (18:38)
[2018-06-28] MEDS ORDERED: FUROSEMIDE 10 MG/ML 4 ML VIAL IV ONE (19:30)
[2018-06-28] MEDS: IPRATROPIUM-ALBUTEROL 3 ML NEB INHALATION PRN (23:09)
--- NOTE | 2018-06-28 23:31 | PN ---
PROGRESS NOTE DATE OF SERVICE: 06/28/2018. REASON FOR FOLLOWUP: Urinary tract infection, lower extremity cellulitis. INTERVAL HISTORY: The patient did have atrial fibrillation with RVR and the patient subsequently did have a code and transferred to the ICU. Currently intubated on the vent, currently 40% sedated. No family members available at bedside. PHYSICAL EXAMINATION: Blood pressure 109/55, pulse 73, temperature of 98, she is 100% on 40% FiO2. GENERAL DESCRIPTION: An elderly female lying in bed in no distress. RESPIRATORY SYSTEM: Unlabored breathing. Clear to auscultation anteriorly. HEART: S1, S2. Regular rate and rhythm. LABS: Hemoglobin 13.4, white count 8.1 with a BUN of 28, creatinine 0.92. DIAGNOSTIC IMPRESSION AND PLAN: Patient with acute lower extremity cellulitis along with urinary tract infection. Patient currently is on Rocephin and daptomycin to continue. Continue supportive care. Prognosis guarded. MMODL / IJN: [id number] /
[2018-06-29 00:17] LABS: Glucose,Whole Blood 187 mg/dL (75-99)
[2018-06-29] MEDS: INSULIN ASPART (NovoLOG) 100 UNIT/ML VIAL SQ SCH ×4 (00:22→19:08)
[2018-06-29] MEDS: methylPREDNISolone SOD SUCCI 125 MG/2 ML VIAL IV SCH ×3 (00:22→16:41)
[2018-06-29] MEDS: NOREPINEPHRINE 4 MG in SODIUM CHLORIDE 0.9% 250 ML IV SCH ×3 (01:56→21:32)
[2018-06-29] MEDS: IPRATROPIUM-ALBUTEROL 3 ML NEB INHALATION PRN (03:06)
[2018-06-29 04:43] LABS: Basophils % (A) 0 %; Eosinophils # (A) 0.1 k/uL (0-0.7); Eosinophils % (A) 1 %; HCT 37.4 % (34.0-46.0); HGB 12.2 gm/dL (11.4-16.0); Lymphocytes # (A) 0.3 k/uL (1.0-4.8); Lymphocytes % (A) 3 %; MCH 28.9 pg (25.0-35.0); MCHC 32.7 g/dL (31.0-37.0); MCV 88.6 fL (80.0-100.0); Mean Platelet Volume 6.2; Monocytes # (A) 0.5 k/uL (0-1.0); Monocytes % (A) 5 %; Neutrophils # (A) 9.6 k/uL (1.3-7.7); Neutrophils % (A) 91 %; Platelet Count 235 k/uL (150-450); RBC 4.22 m/uL (3.80-5.40); RDW 14.1 % (11.5-15.5); WBC 10.6 k/uL (3.8-10.6)
[2018-06-29] MEDS: PROPOFOL 1,000 MG in EMPTY BAG 1 BAG IV SCH ×6 (04:46→22:31)
[2018-06-29 04:52] LABS: Albumin 2.4 g/dL (3.5-5.0); Calcium 8.2 mg/dL (8.4-10.2); Magnesium 2.1 mg/dL (1.6-2.3); Phosphorus 2.6 mg/dL (2.5-4.5); Potassium 3.1 mmol/L (3.5-5.1); Total Bilirubin 0.4 mg/dL (0.2-1.3); Total Protein 5.1 g/dL (6.3-8.2)
[2018-06-29] MEDS ORDERED: Potassium Replacement Protocol 1 EACH MISC MISCELLANE PRN ×2 (05:17→06:11)
[2018-06-29 05:21] LABS: ABG Base Excess 7.7 mmol/L; ABG HCO3 31 mmol/L (21-25); ABG Oxygen Saturation 99.4 % (94-97); ABG PCO2 41 mmHg (35-45); ABG PH 7.49 (7.35-7.45); ABG PO2 123 mmHg (83-108); ABG TCO2 32 mmol/L (19-24)
[2018-06-29] MEDS: IPRATROPIUM-ALBUTEROL 3 ML NEB INHALATION SCH ×4 (05:57→18:54)
[2018-06-29] MEDS ORDERED: POTASSIUM BICARBONATE/CIT AC 20 MEQ TABLET.EFF NG-TUBE SCH (06:00)
[2018-06-29 06:05] LABS: Glucose,Whole Blood 194 mg/dL (75-99)
--- NOTE | 2018-06-29 06:44 | XR ---
EXAM: XR Chest, 1 View CLINICAL HISTORY: Its. reason XR Reason: Tube placement TECHNIQUE: Frontal view of the chest. COMPARISON: 06/28/18 FINDINGS: Lungs: Stable finding in the left lower lung likely combination of airspace disease and/or effusion. No new consolidation or pneumothorax. Pleural space: See above. Heart: Prominent cardiovascular silhouette accentuated by low lung volume. Mediastinum: Unremarkable. Bones/joints: Unremarkable. Vasculature: Tortuous calcified thoracic aorta, unchanged. Suspect mild vascular congestion. Tubes, lines and devices: Endotracheal tube in satisfactory position. NG tube coursing beyond the GE junction, tip not included on the study. IMPRESSION: Endotracheal tube, satisfactory in position. No significant change in left basilar airspace disease and/or effusion. Low lung volumes.
[2018-06-29] MEDS ORDERED: POTASSIUM CHLORIDE 10 MEQ in WATER FOR INJECTION 1 100ML.BAG IVPB SCH (07:00)
[2018-06-29] MEDS: SODIUM CHLORIDE 0.9% 1,000 ML IV SCH ×2 (07:30→21:39)
[2018-06-29 08:24] LABS: Glucose,Whole Blood 158 mg/dL (75-99)
[2018-06-29] MEDS: POTASSIUM CHLORIDE ER 20 MEQ TAB.ER PO SCH ×4 (08:59→19:08)
[2018-06-29] MEDS: APIXABAN 5 MG TAB PO SCH ×2 (08:59→21:38)
[2018-06-29] MEDS: PANTOPRAZOLE 40 MG/10 ML VIAL IVP SCH (08:59)
[2018-06-29] MEDS: CHLORHEXIDINE GLUCONATE 15 ML CUP MUCOUS MEM SCH ×2 (08:59→21:39)
--- NOTE | 2018-06-29 10:02 | CONS ---
CONSULTATION REASON FOR CONSULT: Oliguria and acute kidney injury. HISTORY OF PRESENT ILLNESS: Patient is a 77-year-old female who was admitted to the hospital on 06/26/2018 with complaints of weakness, shortness of breath, and poor appetite. The patient's respiratory status had worsened and she required intubation. She does have a previous history of mitral valve endocarditis in 2014. Serum creatinine has been about 0.9 mg/dL to 0.7. The patient is maintained on IV fluids. Her urine output had dropped yesterday to about 15-20 mL/hour. She did get 1 dose of Lasix last night and it seems like her urine output did pick out hand and it is back down to about 30 mL an hour. Serum creatinine is at 0.8 from 0.9 yesterday. Patient remains on the vent. The patient also had been on Levophed. Currently, she is off of Levophed. PAST MEDICAL HISTORY: Significant for atrial fibrillation, asthma, history of CHF, COPD, type 2 diabetes, hyperlipidemia, osteoarthritis, obstructive sleep apnea, history of mitral valve endocarditis. PAST SURGICAL HISTORY: Appendectomy, bariatric surgery, hysterectomy, tonsillectomy, PICC line insertion, ORIF, left knee arthroplasty with revision, right knee arthroplasty x2, cataract surgery. SOCIAL HISTORY: Negative for smoking, drug abuse or alcohol abuse. MEDICATIONS: Medications at home included lisinopril, amlodipine. ALLERGIES: INCLUDE SULFA, ASPIRIN, VANCO, WHICH CAUSES RASH AND HIVES AND SULFA caused low blood count according to the chart. STERI-STRIPS caused skin blisters. REVIEW OF SYSTEMS: As per HPI. Other systems negative. PHYSICAL EXAMINATION: Patient is currently intubated. She is sedated. Blood pressure is 112/49, heart rate 78 per minute. She is afebrile. Examination of the heart S1, S2. Examination of the lungs, decreased breath sounds at the bases. Abdomen is soft, nontender. Examination of lower extremity shows no significant edema. DESOLDERER exam cannot be performed. LABS: Show sodium 139, potassium 3.1, chloride 104, BUN 31, serum creatinine 0.8, albumin 2.4, hemoglobin at 12.2 g/dL. ASSESSMENT: 1. Acute kidney injury, acute tubular necrosis, currently nonoliguric. Urine output had dropped yesterday. However, seems to have picked up. The patient received one dose of Lasix yesterday. I will continue with the IV fluids for now and continue to monitor her urine output. Her serum creatinine is better from yesterday. 2. Acute hypoxic hypercapnic respiratory failure, currently requiring mechanical ventilation. 3. Sepsis secondary to right lower lobe pneumonia as well as cellulitis of the lower extremities. 4. Pyuria. Urine cultures did not grow anything. 5. Paroxysmal atrial fibrillation. 6. Hypotension from sepsis, currently off of Levophed. 7. Hypokalemia. PLAN: Continue with IV antibiotics. Avoid nephrotoxic agents. Repeat labs in a.m. Replace potassium. Thank you for this consultation. We will continue to follow the patient with you during her hospitalization. MMODL / IJN: [id number] /
[2018-06-29 12:38] LABS: Glucose,Whole Blood 159 mg/dL (75-99)
--- NOTE | 2018-06-29 13:22 | P.PN ---
Subjective Progress Note Date: 06/29/18 This is a 77-year-old female patient of Dr. Palm. Patient patient presents to the emergency room with complaints of increased weakness and poor appetite for 5 days. Patient is a poor historian but does report that she had increased weakness with no appetite that progressively got worse over the past 2 days. Patient does have past medical history of A. fib and flutter but the patient reports that she is not currently on anticoagulation. Additional medical history includes asthma, heart failure, COPD, diabetes mellitus, hyperlipidemia , hypertension, osteoporosis, pneumonia, skin disorder, sleep apnea and depression. Patient's urinary analysis positive for a UTI. Urine culture ordered. Initial white blood cell 21.3. Repeat this a.m. 10.6. Patient's lactic acid 1.1. EKG completed showing sinus tachycardia with premature atrial complexes. Chest x-ray completed showing clinical correlation recommended for right lower lobe infiltrate. Pneumonia or atelectasis could be considered lungs otherwise appear clear. Patient is having low-grade temps. Patient started on Rocephin. This time patient denies any nausea or vomiting. Patient denies chest pain or shortness breath. Denies any urinary burning or frequency. On 06/28/2018 patient was transferred to [facility] last night. During the night patient was found to have increased lethargy, hypotension and A. fib with RVR. Patient was 17 and transferred to the intensive care unit where she was intubated and started on levothyroxine and cardioverted. Patient is currently resting on ventilation with sedation. Family is at bedside. Per patient's daughter Priscilla patient has been noncompliant with her medication and CPAP machine at home. Cardiology, critical care infectious disease is following Objective - Vital Signs Vital signs: Vital Signs Temp 97.9 F 06/29/18 08:00 Pulse 77 06/29/18 11:35 Resp 20 06/29/18 10:00 BP 65/39 06/28/18 03:34 Pulse Ox 100 06/29/18 10:00 Intake & Output 06/28/18 06/29/18 06/29/18 18:59 06:59 18:59 Intake Total 2071.745 7264.275 3159.851 Output Total 266 1450 170 Balance 1805.745 129.855 972.851 Weight 118.841 kg 116 kg Intake: IV 258 1083 771 0.9 NS 25 0.9% NS Pressure bag 33 33 21 Magnesium Sulfate-D5w Pmx 200 1 gm In Dextrose/Water 1 100ml.bag @ 100 mls/hr IVPB Q1H [facility] Rx#: [id number] Potassium Chloride 10 meq 100 In Water For Injection 1 100ml.bag @ 100 mls/hr IVPB Q1HR [facility] Rx#: [id number] Sodium Chloride 0.9% 1, 1050 650 000 ml @ 100 mls/hr IV . Q10H [facility] Rx#:[id number] Intake, IV Titration 1721.745 306.855 241.851 Amount DAPTOmycin 500 mg In 50 Sodium Chloride 0.9% 50 ml @ 100 mls/hr IVPB Q24HR@1800 [facility] Rx#: [id number] Dextrose 5% in Water 100 100 ml @ 103 mls/hr IV .Q1H [facility] with Amiodarone 150 mg Rx#:[id number] Norepinephrine 4 mg In 78.48 106.380 0 Sodium Chloride 0.9% 250 ml @ 0.05 MCG/KG/MIN 21.6 mls/hr IV .[id number] [facility] Rx#:[id number] Propofol 1,000 mg In 193.265 100.475 191.851 Empty Bag 1 bag @ Titrate IV .Q0M [facility] Rx#: [id number] Sodium Chloride 0.9% 1, 750 100 000 ml @ 100 mls/hr IV . Q10H [facility] Rx#:[id number] Sodium Chloride 0.9% 500 500 ml 500 ml @ 999 mls/hr IV .Q31M [facility] Rx#:[id number] cefTRIAXone 2 gm In 50 50 Sodium Chloride 0.9% 50 ml @ 100 mls/hr IVPB Q24HR [facility] Rx#:[id number] Tube Feeding 92 130 100 Other 60 30 Output: Urine 266 1450 170 Other: Voiding Method Indwelling Catheter Indwelling Catheter Indwelling Catheter ABP, PAP, CO, CI - Last Documented Arterial Blood Pressure 125/58 - Exam Patient is intubated sedated maintained on mechanical ventilation Head normocephalic and atraumatic Neck supple no JVD no goiter Lungs patient is currently on mechanical ventilation with sedation Heart regular rate and rhythm S1-S2, no rub or gallop Abdomen is soft nontender nondistended positive bowel sounds no hepatosplenomegaly Extremities no edema. bilaterall lower extremity cellulitis - Labs CBC & Chem 7: 06/29/18 04:25 06/29/18 12:35 Labs: Abnormal Lab Results - Last 24 Hours (Table) 06/28/18 06/29/18 06/29/18 Range/Units 18:02 00:13 04:25 Neutrophils # (1.3-7.7) k/uL Lymphocytes # (1.0-4.8) k/uL ABG pH (7.35-7.45) ABG pO2 (83-108) mmHg ABG HCO3 (21-25) mmol/L ABG Total CO2 (19-24) mmol/L ABG O2 Saturation (94-97) % Potassium 3.1 L (3.5-5.1) mmol/L BUN 31 H (7-17) mg/dL Glucose 187 H (74-99) mg/dL POC Glucose (mg/dL) 158 H 187 H (75-99) mg/dL Calcium 8.2 L (8.4-10.2) mg/dL Total Protein 5.1 L (6.3-8.2) g/dL Albumin 2.4 L (3.5-5.0) g/dL 06/29/18 06/29/18 06/29/18 Range/Units 04:25 05:18 06:02 Neutrophils # 9.6 H (1.3-7.7) k/uL Lymphocytes # 0.3 L (1.0-4.8) k/uL ABG pH 7.49 H (7.35-7.45) ABG pO2 123 H (83-108) mmHg ABG HCO3 31 H (21-25) mmol/L ABG Total CO2 32 H (19-24) mmol/L ABG O2 Saturation 99.4 H (94-97) % Potassium (3.5-5.1) mmol/L BUN (7-17) mg/dL Glucose (74-99) mg/dL POC Glucose (mg/dL) 194 H (75-99) mg/dL Calcium (8.4-10.2) mg/dL Total Protein (6.3-8.2) g/dL Albumin (3.5-5.0) g/dL 06/29/18 06/29/18 Range/Units 08:09 12:33 Neutrophils # (1.3-7.7) k/uL Lymphocytes # (1.0-4.8) k/uL ABG pH (7.35-7.45) ABG pO2 (83-108) mmHg ABG HCO3 (21-25) mmol/L ABG Total CO2 (19-24) mmol/L ABG O2 Saturation (94-97) % Potassium (3.5-5.1) mmol/L BUN (7-17) mg/dL Glucose (74-99) mg/dL POC Glucose (mg/dL) 158 H 159 H (75-99) mg/dL Calcium (8.4-10.2) mg/dL Total Protein (6.3-8.2) g/dL Albumin (3.5-5.0) g/dL Microbiology - Last 24 Hours (Table) 06/27/18 16:15 Gram Stain - Preliminary Leg - Right Wound Culture - Preliminary Gram Neg Bacilli Presumptive MRSA 06/26/18 17:25 Blood Culture - Preliminary Blood No Growth after 48 hours 06/27/18 14:20 Urine Culture - Final Urine,Voided 06/28/18 04:55 Gram Stain - Preliminary Sputum Sputum Culture - Preliminary Assessment and Plan Plan: 1. Acute hypoxic respiratory failure. CTA negative for PE. Patient maintained on mechanical ventilation at this time. Dr. Piper is her regular installer inspector final, Dr. Garrett is covering for this weekend. Patient was off sedation this morning however she did not tolerate she developed tachycardia and hypertension she will be restarted on sedation at this time 2. Severe sepsis associated with multifactorial process including pneumonia, UTI and cellulitis. Infectious disease is following. Patient currently on daptomycin and Rocephin. Right lower extremity wound culture positive for presumptive MRSA and gram-negative bacilli currently patient is on contact isolation. 3. History of paroxysmal atrial fibrillation. Patient denies being on anticoagulation. Cardiology services have been consulted. D-dimer has been ordered 4. History of mitral valve endocarditis in 2014. Patient was transferred to [facility] at that time. Patient at this time denies following up with cardiology services. Cardiology services have been consulted 5. History of asthma 6. History of COPD 7. History of hyperlipidemia 8. History of essential hypertension 9. History of sleep apnea. Per patient's daughter patient noncompliant with CPAP machine at home 10. History of depression 11. Atrial fibrillation with rapid ventricular response. Patient was cardioverted 3 times and started on Cardizem. Cardiology services are following. At this time patient is in sinus rhythm. Cardizem drip has been DC' d due to hypotension. 2-D echo completed showing an EF of 60-65% with severe pulmonary hypertension. 12. Hypotension likely related to sepsis and A. fib with RVR. Patient currently maintained on Levaquin 5 for pressure support DVT prophylaxis Lovenox. GI prophylaxis Protonix. Critical care, cardiology and infectious disease following Patient remains in the intensive care unit at this time
[2018-06-29] MEDS ORDERED: SODIUM CHLORIDE 0.9% 1,000 ML IV SCH (16:00)
--- NOTE | 2018-06-29 16:14 | P.PN ---
Subjective Progress Note Date: 06/29/18 Morbidly obese 77-year-old female seen eval reexamined on fourth floor patient is [facility] data predominantly has been obtained from the chart, presents emergency department complaining of generalized weakness. Patient states she has needed 5 days she's lost her appetite. Patient states over the last 2 days she's got to the point where she can't stand on her own and she feels as though she could be unstable. Patient stated that this is the main reason she came in because of her generalized weakness. Patient denies any pain. Patient denies chest pain difficulty breathing or shortness of breath per patient denies abdominal pain patient denies any recent nausea vomiting diarrhea. Patient denies any recent fever chills or cough. Patient denies any lightheadedness or dizziness. Patient denies any headache patient denies numbness weakness. Patient states she's got chronic bilateral cellulitis and edema and she states that is unchanged. Patient denies any dysuria hematuria urinary frequency. Patient denies any injury or trauma. Patient does have past medical history of A. fib and flutter but the patient reports that she is not currently on anticoagulation. Additional medical history includes asthma, heart failure, COPD, diabetes mellitus, hyperlipidemia, hypertension, osteoporosis, pneumonia, skin disorder, sleep apnea and depression. Patient's urinary analysis positive for a UTI. Urine culture ordered. Initial white blood cell 21.3. Repeat this a.m. 10.6. Patient's lactic acid 1.1. EKG completed showing sinus tachycardia with premature atrial complexes. Chest x-ray completed showing clinical correlation recommended for right lower lobe infiltrate. Pneumonia or atelectasis could be considered lungs otherwise appear clear. Patient is having low-grade temps. Patient started on Rocephin. This time patient denies any nausea or vomiting. Patient denies chest pain or shortness breath. Denies any urinary burning or frequency. She has been noted to have extensive erythematous edema of both lower extremity especially on the left side consistent with cellulitis would recommend to add vancomycin as well I suspect elevated d-dimer is likely related to ongoing inflammatory process however would recommend to continue treat her with aggressive DVT prophylaxis noted that duplex ultrasound lower extremities pending 06/28/2018: Patient seen and examined in the intensive care unit with nursing staff at bedside. Patient is seen and covering for Dr. Piper. The patient was intubated overnight due to respiratory distress. Patient was unable to tolerate BiPAP and became confused. The patient had an acute on chronic hypoxic and hypercapnic respiratory failure. She is currently tolerating a sedation holiday. She does follow complex commands. The patient will remain on the ventilator today. We will attempt another sedation holiday and spontaneous breathing trial in the morning. She is oxygenating well. Her hypercapnia is improving. Cardiology is initiating amiodarone drip. Lovenox has been discontinued and L Aquinas has been started for atrial fibrillation. Lower extremity Dopplers and CT of the chest are negative for DVT and PE. 06/29/2018: Patient seen and examined in the ICU with nursing staff at bedside. The patient had a sedation holiday this morning. Weaning trial was attempted, however, patient failed due to tachycardia and hypertension. Patient was placed back on sedation. Patient on levophed 1 mcg/min. Suctioning pink, frothy sputum from ETT. Objective - Vital Signs Vital signs: Vital Signs Temp 97.9 F 06/29/18 08:00 Pulse 70 06/29/18 15:29 Resp 20 06/29/18 10:00 BP 65/39 06/28/18 03:34 Pulse Ox 100 06/29/18 10:00 Intake & Output 06/28/18 06/29/18 06/29/18 18:59 06:59 18:59 Intake Total 2071.745 6938.402 6161.851 Output Total 266 1450 170 Balance 1805.745 129.855 972.851 Weight 118.841 kg 116 kg Intake: IV 258 1083 771 0.9 NS 25 0.9% NS Pressure bag 33 33 21 Magnesium Sulfate-D5w Pmx 200 1 gm In Dextrose/Water 1 100ml.bag @ 100 mls/hr IVPB Q1H [facility] Rx#: [id number] Potassium Chloride 10 meq 100 In Water For Injection 1 100ml.bag @ 100 mls/hr IVPB Q1HR [facility] Rx#: [id number] Sodium Chloride 0.9% 1, 1050 650 000 ml @ 100 mls/hr IV . Q10H [facility] Rx#:[id number] Intake, IV Titration 1721.745 306.855 241.851 Amount DAPTOmycin 500 mg In 50 Sodium Chloride 0.9% 50 ml @ 100 mls/hr IVPB Q24HR@1800 [facility] Rx#: [id number] Dextrose 5% in Water 100 100 ml @ 103 mls/hr IV .Q1H [facility] with Amiodarone 150 mg Rx#:[id number] Norepinephrine 4 mg In 78.48 106.380 0 Sodium Chloride 0.9% 250 ml @ 0.05 MCG/KG/MIN 21.6 mls/hr IV .[id number] [facility] Rx#:[id number] Propofol 1,000 mg In 193.265 100.475 191.851 Empty Bag 1 bag @ Titrate IV .Q0M [facility] Rx#: [id number] Sodium Chloride 0.9% 1, 750 100 000 ml @ 100 mls/hr IV . Q10H [facility] Rx#:[id number] Sodium Chloride 0.9% 500 500 ml 500 ml @ 999 mls/hr IV .Q31M [facility] Rx#:[id number] cefTRIAXone 2 gm In 50 50 Sodium Chloride 0.9% 50 ml @ 100 mls/hr IVPB Q24HR [facility] Rx#:[id number] Tube Feeding 92 130 100 Other 60 30 Output: Urine 266 1450 170 Other: Voiding Method Indwelling Catheter Indwelling Catheter Indwelling Catheter ABP, PAP, CO, CI - Last Documented Arterial Blood Pressure 125/58 - Exam Gen.: Patient is sedated on ventilator, she does follow complex commands Cardiovascular: Irregular rate and rhythm, S1/S2 Lungs: Diminished breath sounds bilaterally Abdomen: Soft nontender nondistended positive bowel sounds Extremities: 2-3+ pitting edema with cellulitis and chronic venous stasis, stasis dermatitis - Labs CBC & Chem 7: 06/29/18 04:25 06/29/18 12:35 Labs: Abnormal Lab Results - Last 24 Hours (Table) 06/28/18 06/29/18 06/29/18 Range/Units 18:02 00:13 04:25 Neutrophils # (1.3-7.7) k/uL Lymphocytes # (1.0-4.8) k/uL ABG pH (7.35-7.45) ABG pO2 (83-108) mmHg ABG HCO3 (21-25) mmol/L ABG Total CO2 (19-24) mmol/L ABG O2 Saturation (94-97) % Potassium 3.1 L (3.5-5.1) mmol/L BUN 31 H (7-17) mg/dL Glucose 187 H (74-99) mg/dL POC Glucose (mg/dL) 158 H 187 H (75-99) mg/dL Calcium 8.2 L (8.4-10.2) mg/dL Total Protein 5.1 L (6.3-8.2) g/dL Albumin 2.4 L (3.5-5.0) g/dL 06/29/18 06/29/18 06/29/18 Range/Units 04:25 05:18 06:02 Neutrophils # 9.6 H (1.3-7.7) k/uL Lymphocytes # 0.3 L (1.0-4.8) k/uL ABG pH 7.49 H (7.35-7.45) ABG pO2 123 H (83-108) mmHg ABG HCO3 31 H (21-25) mmol/L ABG Total CO2 32 H (19-24) mmol/L ABG O2 Saturation 99.4 H (94-97) % Potassium (3.5-5.1) mmol/L BUN (7-17) mg/dL Glucose (74-99) mg/dL POC Glucose (mg/dL) 194 H (75-99) mg/dL Calcium (8.4-10.2) mg/dL Total Protein (6.3-8.2) g/dL Albumin (3.5-5.0) g/dL 06/29/18 06/29/18 Range/Units 08:09 12:33 Neutrophils # (1.3-7.7) k/uL Lymphocytes # (1.0-4.8) k/uL ABG pH (7.35-7.45) ABG pO2 (83-108) mmHg ABG HCO3 (21-25) mmol/L ABG Total CO2 (19-24) mmol/L ABG O2 Saturation (94-97) % Potassium (3.5-5.1) mmol/L BUN (7-17) mg/dL Glucose (74-99) mg/dL POC Glucose (mg/dL) 158 H 159 H (75-99) mg/dL Calcium (8.4-10.2) mg/dL Total Protein (6.3-8.2) g/dL Albumin (3.5-5.0) g/dL Microbiology - Last 24 Hours (Table) 06/27/18 16:15 Gram Stain - Preliminary Leg - Right Wound Culture - Preliminary Gram Neg Bacilli Presumptive MRSA 06/26/18 17:25 Blood Culture - Preliminary Blood No Growth after 48 hours 06/27/18 14:20 Urine Culture - Final Urine,Voided 06/28/18 04:55 Gram Stain - Preliminary Sputum Sputum Culture - Preliminary Assessment and Plan Assessment: Acute on chronic hypoxic and hypercapnic respiratory failure requiring mechanical ventilation Severe sepsis associated with multifactorial processes including right lower lobe pneumonia as well as extensive cellulitis of the lower extremity (MRSA) Respiratory acidosis Severe pulmonary hypertension Right lower lobe pneumonia Extensive cellulitis of bilateral lower extremity more so on the left side compared right side Morbid obesity Elevated d-dimer related to ongoing chronic inflammatory process given that spiral computed tomography scan of the chest negative for pulmonary embolism, dopplers negative for DVT UTI Paroxysmal atrial fibrillation, s/p cardioversion Chronic persistent asthma severe COPD Hypertension hypertensive cardiovascular disease Obstructive sleep apnea/Obesity hypoventilation syndrome Moderate PCM Plan: Continue full ventilator support, sedation holiday and SBT in AM Bronchodilators Cardiology recommendations IV steroids Levophed to maintain MAP > or = 65 Initiate tube feeds Rocephin and Dapto per ID Eliquis for Afib, no evidence of PE/DVT SCDs and Protonix Decreast IVF to 50 cc/hr, patients lungs sound coarse today Decrease FiO2 to 40% SSC insulin for BS control Replace K Wound care Continue to monitor in the ICU
[2018-06-29] MEDS: AMIODARONE 200 MG TAB PO SCH ×2 (16:41→21:39)
[2018-06-29 18:35] LABS: Glucose,Whole Blood 190 mg/dL (75-99)
[2018-06-29] MEDS: DAPTOmycin 500 MG in SODIUM CHLORIDE 0.9% 50 ML IVPB SCH (19:08)
--- NOTE | 2018-06-29 21:44 | P.PN ---
Subjective Progress Note Date: 06/29/18 This patient remains currently intubated. Weaning process was unsuccessful patient's medications and laboratory tests are reviewed. Since her urine output remains borderline bonded with IV Lasix yesterday this and remains in normal sinus rhythm with PACs his since that chest x-ray shows left lower lobe infiltrate without any evidence of significant failure Objective - Vital Signs Vital signs: Vital Signs Temp 98.2 F 06/29/18 20:30 Pulse 79 06/29/18 21:30 Resp 20 06/29/18 21:30 BP 65/39 06/28/18 03:34 Pulse Ox 100 06/29/18 21:30 Intake & Output 06/29/18 06/29/18 06/30/18 06:59 18:59 06:59 Intake Total 8917.124 2564.497 1039.966 Output Total 1450 247 77 Balance 325.269 1997.497 962.966 Weight 116 kg Intake: IV 1083 786 519 0.9% NS Pressure bag 33 36 9 Potassium Chloride 10 meq 100 In Water For Injection 1 100ml.bag @ 100 mls/hr IVPB Q1HR [facility] Rx#: [id number] Sodium Chloride 0.9% 1, 1050 650 510 000 ml @ 50 mls/hr IV . Q20H [facility] Rx#:[id number] Intake, IV Titration 151.412 7396.497 432.966 Amount DAPTOmycin 500 mg In 50 Sodium Chloride 0.9% 50 ml @ 100 mls/hr IVPB Q24HR@1800 [facility] Rx#: [id number] Norepinephrine 4 mg In 106.380 0 49.968 Sodium Chloride 0.9% 250 ml @ 0.05 MCG/KG/MIN 21.6 mls/hr IV .[id number] [facility] Rx#:[id number] Propofol 1,000 mg In 100.475 292.497 82.998 Empty Bag 1 bag @ Titrate IV .Q0M [facility] Rx#: [id number] Sodium Chloride 0.9% 1, 800 250 000 ml @ 250 mls/hr IV . Q4H [facility] Rx#:[id number] Sodium Chloride 0.9% 1, 100 000 ml @ 50 mls/hr IV . Q20H [facility] Rx#:[id number] cefTRIAXone 2 gm In 50 Sodium Chloride 0.9% 50 ml @ 100 mls/hr IVPB Q24HR [facility] Rx#:[id number] Tube Feeding 130 245 58 Other 60 60 30 Output: Urine 1450 247 77 Other: Voiding Method Indwelling Catheter Indwelling Catheter ABP, PAP, CO, CI - Last Documented Arterial Blood Pressure 103/47 - Exam Patient's vital signs are reviewed. The patient currently remains intubated HEENT negative. Neck-supple no increase in JVP noted no carotid bruits noted. Chest-symmetrical. Heart-first and second heart sounds are normal. No S3 or S4 is noted. No significant murmurs are noted. Lungs bilateral good at entry is noted. Bilateral wheezing noted Abdomen-soft. Liver and spleen are not enlarged. The bowel sounds are normal. No tenderness noted Extremities-peripheral pulses since are 2+. No significant leg edema noted. Neuro-no significant gross abnormality noted. - Labs CBC & Chem 7: 06/29/18 04:25 06/29/18 12:35 Labs: Abnormal Lab Results - Last 24 Hours (Table) 06/29/18 06/29/18 06/29/18 Range/Units 00:13 04:25 04:25 Neutrophils # 9.6 H (1.3-7.7) k/uL Lymphocytes # 0.3 L (1.0-4.8) k/uL ABG pH (7.35-7.45) ABG pO2 (83-108) mmHg ABG HCO3 (21-25) mmol/L ABG Total CO2 (19-24) mmol/L ABG O2 Saturation (94-97) % Potassium 3.1 L (3.5-5.1) mmol/L BUN 31 H (7-17) mg/dL Glucose 187 H (74-99) mg/dL POC Glucose (mg/dL) 187 H (75-99) mg/dL Calcium 8.2 L (8.4-10.2) mg/dL Total Protein 5.1 L (6.3-8.2) g/dL Albumin 2.4 L (3.5-5.0) g/dL 06/29/18 06/29/18 06/29/18 Range/Units 05:18 06:02 08:09 Neutrophils # (1.3-7.7) k/uL Lymphocytes # (1.0-4.8) k/uL ABG pH 7.49 H (7.35-7.45) ABG pO2 123 H (83-108) mmHg ABG HCO3 31 H (21-25) mmol/L ABG Total CO2 32 H (19-24) mmol/L ABG O2 Saturation 99.4 H (94-97) % Potassium (3.5-5.1) mmol/L BUN (7-17) mg/dL Glucose (74-99) mg/dL POC Glucose (mg/dL) 194 H 158 H (75-99) mg/dL Calcium (8.4-10.2) mg/dL Total Protein (6.3-8.2) g/dL Albumin (3.5-5.0) g/dL 06/29/18 06/29/18 Range/Units 12:33 17:44 Neutrophils # (1.3-7.7) k/uL Lymphocytes # (1.0-4.8) k/uL ABG pH (7.35-7.45) ABG pO2 (83-108) mmHg ABG HCO3 (21-25) mmol/L ABG Total CO2 (19-24) mmol/L ABG O2 Saturation (94-97) % Potassium (3.5-5.1) mmol/L BUN (7-17) mg/dL Glucose (74-99) mg/dL POC Glucose (mg/dL) 159 H 190 H (75-99) mg/dL Calcium (8.4-10.2) mg/dL Total Protein (6.3-8.2) g/dL Albumin (3.5-5.0) g/dL Microbiology - Last 24 Hours (Table) 06/26/18 17:25 Blood Culture - Preliminary Blood No Growth after 72 hours 06/27/18 16:15 Gram Stain - Preliminary Leg - Right Wound Culture - Preliminary Gram Neg Bacilli Presumptive MRSA 06/27/18 14:20 Urine Culture - Final Urine,Voided 06/28/18 04:55 Gram Stain - Preliminary Sputum Sputum Culture - Preliminary Assessment and Plan Assessment: We will switch the patient to oral amiodarone 200 mg 3 times a day after the present IV infusion is finished We will try the fluid challenge up to 50 mL/h 4 to see if there is any improvement in the urine output patient's INR is suggested that the patient is in positive fluid balance. There is no significant increase in urine output patient will be given IV Lasix and later on.
[2018-06-29] MEDS ORDERED: FUROSEMIDE 10 MG/ML 2 ML VIAL IV ONE (21:48)
--- NOTE | 2018-06-29 22:20 | PN ---
PROGRESS NOTE DATE OF SERVICE: 06/29/2018. REASON FOR FOLLOWUP: Urinary tract infection and bilateral lower extremity cellulitis. INTERVAL HISTORY: The patient is afebrile. The patient remains to be intubated on the vent, hemodynamically stable. FiO2 is currently at 40%. No noted by the nursing staff or any changes. PHYSICAL EXAMINATION: Blood pressure is 109/50 with a pulse of 79, temperature of 98.2, she is 100% on 40% FiO2. GENERAL DESCRIPTION: An elderly female, lying in bed in no distress. RESPIRATORY SYSTEM: Unlabored breathing. Decreased breath sounds in the bases. No wheeze. HEART: S1, S2. Regular rate and rhythm. ABDOMEN: Soft, nontender. EXTREMITIES: Legs are currently wrapped. No drainage on the dressing. LABS: Hemoglobin is 12.8, white count 10.6, BUN of 31, creatinine 0.82. Urine is negative. Blood culture negative. Leg wound with gram-negative with presumptive MRSA. DIAGNOSTIC IMPRESSION AND PLAN: Patient with bilateral lower extremity cellulitis with possible urinary tract infection. significantly positive. The patient is currently covered with Rocephin and daptomycin, will continue. Followup while watching clinical course closely. Son was present at bedside, his questions were answered. MMODL / IJN: [id number] /
[2018-06-30 00:27] LABS: Glucose,Whole Blood 166 mg/dL (75-99)
[2018-06-30] MEDS: INSULIN ASPART (NovoLOG) 100 UNIT/ML VIAL SQ SCH ×4 (00:35→17:31)
[2018-06-30] MEDS: methylPREDNISolone SOD SUCCI 125 MG/2 ML VIAL IV SCH ×2 (00:35→09:54)
[2018-06-30] MEDS: PROPOFOL 1,000 MG in EMPTY BAG 1 BAG IV SCH (02:08)
[2018-06-30 05:18] LABS: ABG Base Excess 6.7 mmol/L; ABG HCO3 32 mmol/L (21-25); ABG PCO2 51 mmHg (35-45); ABG PO2 119 mmHg (83-108); ABG TCO2 33 mmol/L (19-24)
[2018-06-30] MEDS: NOREPINEPHRINE 4 MG in SODIUM CHLORIDE 0.9% 250 ML IV SCH ×2 (05:21→11:52)
[2018-06-30 05:38] LABS: Basophils % (A) 0 %; Eosinophils # (A) 0.1 k/uL (0-0.7); Eosinophils % (A) 0 %; HCT 41.7 % (34.0-46.0); HGB 13.2 gm/dL (11.4-16.0); Lymphocytes # (A) 0.4 k/uL (1.0-4.8); Lymphocytes % (A) 2 %; MCH 28.5 pg (25.0-35.0); MCHC 31.7 g/dL (31.0-37.0); MCV 90.1 fL (80.0-100.0); Mean Platelet Volume 6.3; Monocytes # (A) 0.8 k/uL (0-1.0); Monocytes % (A) 4 %; Neutrophils # (A) 19.3 k/uL (1.3-7.7); Neutrophils % (A) 93 %; Platelet Count 293 k/uL (150-450); RBC 4.63 m/uL (3.80-5.40); RDW 14.5 % (11.5-15.5); WBC 20.7 k/uL (3.8-10.6)
[2018-06-30 05:47] LABS: Albumin 2.6 g/dL (3.5-5.0); Calcium 8.3 mg/dL (8.4-10.2); Magnesium 1.9 mg/dL (1.6-2.3); Phosphorus 3.7 mg/dL (2.5-4.5); Potassium 4.1 mmol/L (3.5-5.1); Total Bilirubin 0.4 mg/dL (0.2-1.3); Total Protein 5.6 g/dL (6.3-8.2)
[2018-06-30] MEDS: MAGNESIUM SULFATE-D5W PMX 1 GM in DEXTROSE/WATER 1 100ML.BAG IVPB SCH ×2 (06:03→07:19)
[2018-06-30 06:12] LABS: Glucose,Whole Blood 162 mg/dL (75-99)
--- NOTE | 2018-06-30 07:31 | XR ---
EXAMINATION TYPE: XR chest 1V portable DATE OF EXAM: 06/30/2018 Comparison: 06/29/2018 Clinical History: 77-year-old female Tube placement Findings: Lung volumes remain low. Heart borderline enlarged. Perihilar densities persist. Small left pleural e ffusion with continued left basilar opacity. Interval extubation and removal of NG tube. Impression: Continued hypoventilatory changes and possible mild pulmonary vascular congestion. Continued small le ft effusion with adjacent atelectasis and/or consolidation.
[2018-06-30] MEDS: IPRATROPIUM-ALBUTEROL 3 ML NEB INHALATION SCH ×4 (07:45→19:43)
--- NOTE | 2018-06-30 09:45 | P.PN ---
Subjective Progress Note Date: 06/30/18 Morbidly obese 77-year-old female seen eval reexamined on fourth floor patient is in process of being transferred to [facility] data predominantly has been obtained from the chart, presents emergency department complaining of generalized weakness. Patient states she has needed 5 days she's lost her appetite. Patient states over the last 2 days she's got to the point where she can't stand on her own and she feels as though she could be unstable. Patient stated that this is the main reason she came in because of her generalized weakness. Patient denies any pain. Patient denies chest pain difficulty breathing or shortness of breath per patient denies abdominal pain patient denies any recent nausea vomiting diarrhea. Patient denies any recent fever chills or cough. Patient denies any lightheadedness or dizziness. Patient denies any headache patient denies numbness weakness. Patient states she's got chronic bilateral cellulitis and edema and she states that is unchanged. Patient denies any dysuria hematuria urinary frequency. Patient denies any injury or trauma. Patient does have past medical history of A. fib and flutter but the patient reports that she is not currently on anticoagulation. Additional medical history includes asthma, heart failure, COPD, diabetes mellitus, hyperlipidemia, hypertension, osteoporosis, pneumonia, skin disorder, sleep apnea and depression. Patient's urinary analysis positive for a UTI. Urine culture ordered. Initial white blood cell 21.3. Repeat this a.m. 10.6. Patient's lactic acid 1.1. EKG completed showing sinus tachycardia with premature atrial complexes. Chest x-ray completed showing clinical correlation recommended for right lower lobe infiltrate. Pneumonia or atelectasis could be considered lungs otherwise appear clear. Patient is having low-grade temps. Patient started on Rocephin. This time patient denies any nausea or vomiting. Patient denies chest pain or shortness breath. Denies any urinary burning or frequency. She has been noted to have extensive erythematous edema of both lower extremity especially on the left side consistent with cellulitis would recommend to add vancomycin as well I suspect elevated d-dimer is likely related to ongoing inflammatory process however would recommend to continue treat her with aggressive DVT prophylaxis noted that duplex ultrasound lower extremities pending 06/28/2018: Patient seen and examined in the intensive care unit with nursing staff at bedside. Patient is seen and covering for Dr. Piper. The patient was intubated overnight due to respiratory distress. Patient was unable to tolerate BiPAP and became confused. The patient had an acute on chronic hypoxic and hypercapnic respiratory failure. She is currently tolerating a sedation holiday. She does follow complex commands. The patient will remain on the ventilator today. We will attempt another sedation holiday and spontaneous breathing trial in the morning. She is oxygenating well. Her hypercapnia is improving. Cardiology is initiating amiodarone drip. Lovenox has been discontinued and L Aquinas has been started for atrial fibrillation. Lower extremity Dopplers and CT of the chest are negative for DVT and PE. 06/29/2018: Patient seen and examined in the ICU with nursing staff at bedside. The patient had a sedation holiday this morning. Weaning trial was attempted, however, patient failed due to tachycardia and hypertension. Patient was placed back on sedation. Patient on levophed 1 mcg/min. Suctioning pink, frothy sputum from ETT. 06/30/2018: Patient seen and examined in the intensive care unit. The patient is off of levophed. She did self extubate early this morning. She is currently on 5 L nasal cannula. Case is discussed with nephrology and IV fluids are KVO. Patient does have a cough which she states is nonproductive. Objective - Vital Signs Vital signs: Vital Signs Temp 98.1 F 06/30/18 04:30 Pulse 108 H 06/30/18 08:03 Resp 30 H 06/30/18 07:00 BP 65/39 06/28/18 03:34 Pulse Ox 97 06/30/18 07:00 Intake & Output 06/29/18 06/30/18 06/30/18 18:59 06:59 18:59 Intake Total 2233.497 2173.054 158 Output Total 247 1018 400 Balance 8568.881 5229.054 -242 Weight 119.8 kg Intake: IV 786 1026 158 0.9% NS Pressure bag 36 36 3 Magnesium Sulfate-D5w Pmx 100 1 gm In Dextrose/Water 1 100ml.bag @ 100 mls/hr IVPB Q1H [facility] Rx#: [id number] Potassium Chloride 10 meq 100 In Water For Injection 1 100ml.bag @ 100 mls/hr IVPB Q1HR [facility] Rx#: [id number] Sodium Chloride 0.9% 1, 650 990 55 000 ml @ 50 mls/hr IV . Q20H [facility] Rx#:[id number] Intake, IV Titration 1142.497 635.054 Amount DAPTOmycin 500 mg In 50 Sodium Chloride 0.9% 50 ml @ 100 mls/hr IVPB Q24HR@1800 [facility] Rx#: [id number] Norepinephrine 4 mg In 0 52.056 Sodium Chloride 0.9% 250 ml @ 0.05 MCG/KG/MIN 21.6 mls/hr IV .[id number] [facility] Rx#:[id number] Propofol 1,000 mg In 292.497 282.998 Empty Bag 1 bag @ Titrate IV .Q0M [facility] Rx#: [id number] Sodium Chloride 0.9% 1, 800 250 000 ml @ 250 mls/hr IV . Q4H [facility] Rx#:[id number] cefTRIAXone 2 gm In 50 Sodium Chloride 0.9% 50 ml @ 100 mls/hr IVPB Q24HR [facility] Rx#:[id number] Tube Feeding 245 377 Other 60 135 Output: Urine 247 1018 400 Other: Voiding Method Indwelling Catheter Indwelling Catheter ABP, PAP, CO, CI - Last Documented Arterial Blood Pressure 141/70 - Exam Gen.: Patient is Alert and oriented, no acute distress Cardiovascular: Irregular rate and rhythm, S1/S2 Lungs: Coarse breath sounds bilaterally Abdomen: Soft nontender nondistended positive bowel sounds Extremities: 2-3+ pitting edema with cellulitis and chronic venous stasis, stasis dermatitis - Labs CBC & Chem 7: 06/30/18 05:22 06/30/18 05:22 Labs: Abnormal Lab Results - Last 24 Hours (Table) 06/29/18 06/29/18 06/30/18 Range/Units 12:33 17:44 00:26 WBC (3.8-10.6) k/uL Neutrophils # (1.3-7.7) k/uL Lymphocytes # (1.0-4.8) k/uL ABG pCO2 (35-45) mmHg ABG pO2 (83-108) mmHg ABG HCO3 (21-25) mmol/L ABG Total CO2 (19-24) mmol/L ABG O2 Saturation (94-97) % Carbon Dioxide (22-30) mmol/L BUN (7-17) mg/dL Glucose (74-99) mg/dL POC Glucose (mg/dL) 159 H 190 H 166 H (75-99) mg/dL Calcium (8.4-10.2) mg/dL Total Protein (6.3-8.2) g/dL Albumin (3.5-5.0) g/dL 06/30/18 06/30/18 06/30/18 Range/Units 05:17 05:22 05:22 WBC 20.7 H (3.8-10.6) k/uL Neutrophils # 19.3 H (1.3-7.7) k/uL Lymphocytes # 0.4 L (1.0-4.8) k/uL ABG pCO2 51 H (35-45) mmHg ABG pO2 119 H (83-108) mmHg ABG HCO3 32 H (21-25) mmol/L ABG Total CO2 33 H (19-24) mmol/L ABG O2 Saturation 99.0 H (94-97) % Carbon Dioxide 31 H (22-30) mmol/L BUN 37 H (7-17) mg/dL Glucose 180 H (74-99) mg/dL POC Glucose (mg/dL) (75-99) mg/dL Calcium 8.3 L (8.4-10.2) mg/dL Total Protein 5.6 L (6.3-8.2) g/dL Albumin 2.6 L (3.5-5.0) g/dL 06/30/18 Range/Units 05:57 WBC (3.8-10.6) k/uL Neutrophils # (1.3-7.7) k/uL Lymphocytes # (1.0-4.8) k/uL ABG pCO2 (35-45) mmHg ABG pO2 (83-108) mmHg ABG HCO3 (21-25) mmol/L ABG Total CO2 (19-24) mmol/L ABG O2 Saturation (94-97) % Carbon Dioxide (22-30) mmol/L BUN (7-17) mg/dL Glucose (74-99) mg/dL POC Glucose (mg/dL) 162 H (75-99) mg/dL Calcium (8.4-10.2) mg/dL Total Protein (6.3-8.2) g/dL Albumin (3.5-5.0) g/dL Microbiology - Last 24 Hours (Table) 06/27/18 16:15 Gram Stain - Final Leg - Right Wound Culture - Final Proteus mirabilis Methicillin resist S. aureus 06/26/18 17:25 Blood Culture - Preliminary Blood No Growth after 72 hours Assessment and Plan Assessment: Acute on chronic hypoxic and hypercapnic respiratory failure requiring mechanical ventilation Severe sepsis associated with multifactorial processes including right lower lobe pneumonia as well as extensive cellulitis of the lower extremity (MRSA) Respiratory acidosis Severe pulmonary hypertension Right lower lobe pneumonia Pulmonary vascular congestion and pulmonary edema Extensive cellulitis of bilateral lower extremity more so on the left side compared right side Morbid obesity Elevated d-dimer related to ongoing chronic inflammatory process given that spiral computed tomography scan of the chest negative for pulmonary embolism, dopplers negative for DVT UTI Paroxysmal atrial fibrillation, s/p cardioversion Chronic persistent asthma severe COPD Hypertension hypertensive cardiovascular disease Obstructive sleep apnea/Obesity hypoventilation syndrome Moderate PCM Plan: O2 to maintain saturation > or = 90% Bronchodilators Cardiology recommendations IV steroids taper Off pressors Rocephin and Dapto per ID Eliquis for Afib, no evidence of PE/DVT SCDs and Protonix KVO IVF, monitor urine output, may benefit from another dose of Lasix Decrease FiO2 to 40% SSC insulin for BS control Wound care Continue to monitor in the ICU
[2018-06-30] MEDS: PANTOPRAZOLE 40 MG/10 ML VIAL IVP SCH (09:47)
[2018-06-30] MEDS: CHLORHEXIDINE GLUCONATE 15 ML CUP MUCOUS MEM SCH (09:51)
[2018-06-30] MEDS: SODIUM CHLORIDE 0.9% 500 ML 500 ML IV SCH (09:51)
[2018-06-30] MEDS: APIXABAN 5 MG TAB PO SCH ×2 (10:48→22:47)
[2018-06-30] MEDS: AMIODARONE 200 MG TAB PO SCH ×3 (10:48→22:47)
[2018-06-30 11:52] LABS: Glucose,Whole Blood 153 mg/dL (75-99)
[2018-06-30] MEDS ORDERED: ONDANSETRON 4 MG/2 ML VIAL IVP STA (11:56)
--- NOTE | 2018-06-30 12:32 | P.PN ---
Subjective Progress Note Date: 06/30/18 This is a 77-year-old female patient of Dr. Palm. Patient patient presents to the emergency room with complaints of increased weakness and poor appetite for 5 days. Patient is a poor historian but does report that she had increased weakness with no appetite that progressively got worse over the past 2 days. Patient does have past medical history of A. fib and flutter but the patient reports that she is not currently on anticoagulation. Additional medical history includes asthma, heart failure, COPD, diabetes mellitus, hyperlipidemia , hypertension, osteoporosis, pneumonia, skin disorder, sleep apnea and depression. Patient's urinary analysis positive for a UTI. Urine culture ordered. Initial white blood cell 21.3. Repeat this a.m. 10.6. Patient's lactic acid 1.1. EKG completed showing sinus tachycardia with premature atrial complexes. Chest x-ray completed showing clinical correlation recommended for right lower lobe infiltrate. Pneumonia or atelectasis could be considered lungs otherwise appear clear. Patient is having low-grade temps. Patient started on Rocephin. This time patient denies any nausea or vomiting. Patient denies chest pain or shortness breath. Denies any urinary burning or frequency. On 06/28/2018 patient was transferred to [facility] last night. During the night patient was found to have increased lethargy, hypotension and A. fib with RVR. Patient was 17 and transferred to the intensive care unit where she was intubated and started on levothyroxine and cardioverted. Patient is currently resting on ventilation with sedation. Family is at bedside. Per patient's daughter Priscilla patient has been noncompliant with her medication and CPAP machine at home. Cardiology, critical care infectious disease is following On 06/30/2018 patient self extubated this AM. At this time patient is maintained on 3 L nasal cannula. Discussed case with Dr. Watt is with critical care. This time patient is resting comfortably in bed. Patient denies any chest pain or shortness of breath. Patient denies nausea vomiting or diarrhea. Denies any urinary burning or frequency. Objective - Vital Signs Vital signs: Vital Signs Temp 97.9 F 06/30/18 08:00 Pulse 98 06/30/18 11:17 Resp 28 H 06/30/18 11:27 BP 65/39 06/28/18 03:34 Pulse Ox 99 06/30/18 10:30 Intake & Output 06/29/18 06/30/18 06/30/18 18:59 06:59 18:59 Intake Total 2233.497 2173.054 473 Output Total 247 1018 1075 Balance 9125.189 2061.054 -602 Weight 119.8 kg Intake: IV 786 1026 423 0.9% NS Pressure bag 36 36 18 Magnesium Sulfate-D5w Pmx 200 1 gm In Dextrose/Water 1 100ml.bag @ 100 mls/hr IVPB Q1H [facility] Rx#: [id number] Potassium Chloride 10 meq 100 In Water For Injection 1 100ml.bag @ 100 mls/hr IVPB Q1HR [facility] Rx#: [id number] Sodium Chloride 0.9% 1, 650 990 205 000 ml @ 50 mls/hr IV . Q20H [facility] Rx#:[id number] Intake, IV Titration 1142.497 635.054 50 Amount DAPTOmycin 500 mg In 50 Sodium Chloride 0.9% 50 ml @ 100 mls/hr IVPB Q24HR@1800 [facility] Rx#: [id number] Norepinephrine 4 mg In 0 52.056 Sodium Chloride 0.9% 250 ml @ 0.05 MCG/KG/MIN 21.6 mls/hr IV .[id number] [facility] Rx#:[id number] Propofol 1,000 mg In 292.497 282.998 Empty Bag 1 bag @ Titrate IV .Q0M [facility] Rx#: [id number] Sodium Chloride 0.9% 1, 800 250 000 ml @ 250 mls/hr IV . Q4H [facility] Rx#:[id number] cefTRIAXone 2 gm In 50 50 Sodium Chloride 0.9% 50 ml @ 100 mls/hr IVPB Q24HR [facility] Rx#:[id number] Tube Feeding 245 377 Other 60 135 Output: Urine 247 1018 1075 Other: Voiding Method Indwelling Catheter Indwelling Catheter Indwelling Catheter ABP, PAP, CO, CI - Last Documented Arterial Blood Pressure 132/57 - Exam Head normocephalic Neck supple Lungs diminished bilaterally with expiratory wheezing Heart regular rate and rhythm S1-S2, no rub or gallop Abdomen is soft nontender nondistended positive bowel sounds no hepatosplenomegaly Extremities no edema. bilaterall lower extremity cellulitis - Labs CBC & Chem 7: 06/30/18 05:22 06/30/18 05:22 Labs: Abnormal Lab Results - Last 24 Hours (Table) 06/29/18 06/29/18 06/30/18 Range/Units 12:33 17:44 00:26 WBC (3.8-10.6) k/uL Neutrophils # (1.3-7.7) k/uL Lymphocytes # (1.0-4.8) k/uL ABG pCO2 (35-45) mmHg ABG pO2 (83-108) mmHg ABG HCO3 (21-25) mmol/L ABG Total CO2 (19-24) mmol/L ABG O2 Saturation (94-97) % Carbon Dioxide (22-30) mmol/L BUN (7-17) mg/dL Glucose (74-99) mg/dL POC Glucose (mg/dL) 159 H 190 H 166 H (75-99) mg/dL Calcium (8.4-10.2) mg/dL Total Protein (6.3-8.2) g/dL Albumin (3.5-5.0) g/dL 06/30/18 06/30/18 06/30/18 Range/Units 05:17 05:22 05:22 WBC 20.7 H (3.8-10.6) k/uL Neutrophils # 19.3 H (1.3-7.7) k/uL Lymphocytes # 0.4 L (1.0-4.8) k/uL ABG pCO2 51 H (35-45) mmHg ABG pO2 119 H (83-108) mmHg ABG HCO3 32 H (21-25) mmol/L ABG Total CO2 33 H (19-24) mmol/L ABG O2 Saturation 99.0 H (94-97) % Carbon Dioxide 31 H (22-30) mmol/L BUN 37 H (7-17) mg/dL Glucose 180 H (74-99) mg/dL POC Glucose (mg/dL) (75-99) mg/dL Calcium 8.3 L (8.4-10.2) mg/dL Total Protein 5.6 L (6.3-8.2) g/dL Albumin 2.6 L (3.5-5.0) g/dL 06/30/18 06/30/18 Range/Units 05:57 11:48 WBC (3.8-10.6) k/uL Neutrophils # (1.3-7.7) k/uL Lymphocytes # (1.0-4.8) k/uL ABG pCO2 (35-45) mmHg ABG pO2 (83-108) mmHg ABG HCO3 (21-25) mmol/L ABG Total CO2 (19-24) mmol/L ABG O2 Saturation (94-97) % Carbon Dioxide (22-30) mmol/L BUN (7-17) mg/dL Glucose (74-99) mg/dL POC Glucose (mg/dL) 162 H 153 H (75-99) mg/dL Calcium (8.4-10.2) mg/dL Total Protein (6.3-8.2) g/dL Albumin (3.5-5.0) g/dL Microbiology - Last 24 Hours (Table) 06/27/18 16:15 Gram Stain - Final Leg - Right Wound Culture - Final Proteus mirabilis Methicillin resist S. aureus 06/26/18 17:25 Blood Culture - Preliminary Blood No Growth after 72 hours Assessment and Plan Assessment: 1. Acute hypoxic per respiratory failure. CTA negative for PE. Patient maintained on mechanical ventilation at this time. Dr. Piper is her regular insecticide maker, Dr. Garrett is covering for this weekend. Patient was off sedation this morning however she did not tolerate she developed tachycardia and hypertension she will be restarted on sedation at this time. On 06/30/2018 patient did self extubate. Patient is currently maintained on 3 L nasal cannula 2. Severe sepsis associated with multifactorial process including pneumonia, UTI and cellulitis. Infectious disease is following. Patient currently on daptomycin and Rocephin. Right lower extremity wound culture positive for presumptive MRSA and gram-negative bacilli currently patient is on contact isolation. White blood cell that increased to 20.8. Patient is on steroids at this time. The patient is by infectious disease maintained on IV antibiotics 3. History of paroxysmal atrial fibrillation. Patient denies being on anticoagulation. Cardiology services have been consulted. D-dimer has been ordered 4. History of mitral valve endocarditis in 2014. Patient was transferred to [facility] at that time. Patient at this time denies following up with cardiology services. Cardiology services have been consulted 5. History of asthma 6. History of COPD 7. History of hyperlipidemia 8. History of essential hypertension 9. History of sleep apnea. Per patient's daughter patient noncompliant with CPAP machine at home 10. History of depression 11. Atrial fibrillation with rapid ventricular response. Patient was cardioverted 3 times and started on Cardizem. Cardiology services are following. At this time patient is in sinus rhythm. Cardizem drip has been DC' d due to hypotension. 2-D echo completed showing an EF of 60-65% with severe pulmonary hypertension. Patient started on eliquis for anticoagulation. She started on amiodarone per cardiology 12. Hypotension likely related to sepsis and A. fib with RVR. Patient currently maintained on Levaquin 5 for pressure support 13. Oliguric. Nephrology services are following. Patient did receive 1 time dose of IV Lasix and IV fluids. Urine output has improved DVT prophylaxis Eliquis. GI prophylaxis Protonix. Critical care, cardiology, nephrology and infectious disease following Patient remains in the intensive care unit at this time I performed an examination of the patient and discussed their management with the Nurse Practitioner. I have reviewed the Nurse Practitioner's notes and agree with the documented findings and plan of care
--- NOTE | 2018-06-30 12:54 | PN ---
PROGRESS NOTE The patient is seen for followup for acute kidney injury. Serum creatinine has not changed much. However, patient was oliguric. She did get a dose of Lasix last night and her urine output has picked up. The patient also self-extubated this morning. Her urine output currently is at about 200 to 150 per hour. PHYSICAL EXAMINATION: On examination, blood pressure is 132/57, heart rate 86 per minute. She is afebrile. EXAMINATION OF THE HEART: S1, S2. EXAMINATION OF THE LUNGS: Bilateral breath sounds are heard. Decreased breath sounds at bases. Abdomen is soft, obese. Examination of the lower extremities shows chronic skin changes. Trace edema is noted. 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 LABS: Labs show sodium of 141, potassium 4.1, BUN 37, serum creatinine 0.82, hemoglobin 13.2 g/dL. ASSESSMENT: 1. Acute kidney injury/oliguria, currently improved. We can repeat another dose of Lasix if urine output drops. I will Hep-Lock the IV fluids. 2. Right leg cellulitis. Wound culture growing Proteus and methicillin-resistant Staphylococcus aureus. 3. Acute hypoxic and hypercapnic respiratory failure, status post self extubation this morning. 4. Sepsis from right lower lobe pneumonia as well as cellulitis. Wound culture growing methicillin-resistant Staphylococcus aureus. 5. Severe pulmonary hypertension. 6. Paroxysmal atrial fibrillation, status post cardioversion. 7. Obstructive sleep apnea. PLAN: Decrease IV fluids. Use loop diuretics p.r.n. if urine output drops. MMODL / IJN: [id number] /
[2018-06-30] MEDS ORDERED: FUROSEMIDE 10 MG/ML 2 ML VIAL IV ONE (17:21)
[2018-06-30] MEDS: methylPREDNISolone SOD SUCCI 40 MG/ML 1 ML VIAL IV SCH (17:22)
[2018-06-30 17:32] LABS: Glucose,Whole Blood 127 mg/dL (75-99)
[2018-06-30] MEDS ORDERED: FUROSEMIDE 10 MG/ML 2 ML VIAL IV STA (17:32)
[2018-06-30] MEDS: DAPTOmycin 500 MG in SODIUM CHLORIDE 0.9% 50 ML IVPB SCH (18:20)
--- NOTE | 2018-06-30 20:03 | PN ---
PROGRESS NOTE DATE OF SERVICE: 06/30/2018. REASON FOR FOLLOWUP: Lower extremity cellulitis and UTI. INTERVAL HISTORY: The patient is afebrile. The patient has been extubated. She is breathing comfortably. She did have some cough but not bringing up any sputum. No chest pain. No abdominal pain or any diarrhea. PHYSICAL EXAMINATION: Blood pressure 132/57, pulse of 83, temperature 98. She is 99% on 3 L nasal cannula. General description is an elderly female lying in bed in no distress. RESPIRATORY SYSTEM: Unlabored breathing. Some decreased breath sounds at the bases. No wheeze. HEART: S1, S2. Regular rate and rhythm. ABDOMEN: Soft, no tenderness. Lower extremities with some swelling. No drainage. LABS: Hemoglobin 13.2, white count 20.7, BUN of 37, creatinine 0.82. Sputum cultures currently negative. Wound culture with Proteus mirabilis and MRSA. DIAGNOSTIC IMPRESSION AND PLAN: Patient with bilateral lower extremity cellulitis. Local wound culture with MRSA and Proteus. Patient currently covered with Rocephin and daptomycin to continue for now along with Chau wrap to keep the swelling down. Elevated white count more likely related to the steroids the patient is currently on. Continue supportive care. MMODL / IJN: [id number] /
--- NOTE | 2018-06-30 22:48 | CONS ---
CONSULTATION This patient is being treated for sepsis, urinary tract infection and cellulitis. Patient had an episode of atrial fibrillation with rapid ventricular rate and patient was intubated. Patient self-extubated this morning. She is comfortable without any respiratory distress. The patient remains afebrile. Respiratory rate is 28, blood pressure is 130/80 mmHg. First and second heart sounds are heard. Lungs are clinically clear to auscultation and percussion. Abdomen is soft. The patient's chest x-ray does not show any significant failure. Patient still has a significant fluid overload. Positive fluid balance. Patient did respond to the IV Lasix and the patient's creatinine remains stable. If the patient's urine output remains borderline, then patient may require additional dose of Lasix. MMODL / IJN: [id number] /
[2018-06-30 23:47] LABS: Glucose,Whole Blood 195 mg/dL (75-99)
[2018-07-01 00:24] LABS: Glucose,Whole Blood 190 mg/dL (75-99)
[2018-07-01] MEDS: INSULIN ASPART (NovoLOG) 100 UNIT/ML VIAL SQ SCH ×5 (00:51→21:22)
[2018-07-01] MEDS: methylPREDNISolone SOD SUCCI 40 MG/ML 1 ML VIAL IV SCH ×3 (00:51→15:39)
[2018-07-01] MEDS: ACETAMINOPHEN TAB 500 MG TAB PO PRN ×2 (02:53→20:06)
[2018-07-01] MEDS: NOREPINEPHRINE 4 MG in SODIUM CHLORIDE 0.9% 250 ML IV SCH (05:47)
[2018-07-01 05:48] LABS: Glucose,Whole Blood 126 mg/dL (75-99)
[2018-07-01 06:10] LABS: Basophils % (A) 0 %; Eosinophils # (A) 0.1 k/uL (0-0.7); Eosinophils % (A) 0 %; HCT 40.2 % (34.0-46.0); HGB 12.4 gm/dL (11.4-16.0); Lymphocytes # (A) 0.7 k/uL (1.0-4.8); Lymphocytes % (A) 5 %; MCHC 30.8 g/dL (31.0-37.0); MCV 90.7 fL (80.0-100.0); Mean Platelet Volume 6.4; Monocytes % (A) 6 %; Neutrophils # (A) 14.5 k/uL (1.3-7.7); Neutrophils % (A) 88 %; Platelet Count 289 k/uL (150-450); RBC 4.43 m/uL (3.80-5.40); RDW 14.4 % (11.5-15.5); WBC 16.4 k/uL (3.8-10.6)
[2018-07-01 06:20] LABS: Albumin 2.6 g/dL (3.5-5.0); Calcium 8.3 mg/dL (8.4-10.2); Phosphorus 3.8 mg/dL (2.5-4.5); Potassium 4.3 mmol/L (3.5-5.1); Total Bilirubin 0.4 mg/dL (0.2-1.3); Total Protein 5.4 g/dL (6.3-8.2)
--- NOTE | 2018-07-01 07:29 | XR ---
EXAMINATION TYPE: XR chest 1V portable DATE OF EXAM: 07/01/2018 COMPARISON: 06/30/2018 HISTORY: Shortness of breath TECHNIQUE: Single frontal view of the chest is obtained. FINDINGS: There is continued right hemidiaphragm elevation and blunting of the left costophrenic ang le with retrocardiac airspace. Cardia mediastinal silhouette is stable but appears enlarged. Pulmonar y vascular congestion has improved. No sizable pneumothorax. IMPRESSION: Continued right hemidiaphragm elevation, trace left pleural effusion and retrocardiac ai rspace disease that may represent pneumonia or atelectasis.
[2018-07-01] MEDS: IPRATROPIUM-ALBUTEROL 3 ML NEB INHALATION SCH ×4 (07:51→19:36)
[2018-07-01] MEDS: PANTOPRAZOLE 40 MG TABLET PO SCH (08:40)
[2018-07-01] MEDS: SODIUM CHLORIDE 0.9% 500 ML 500 ML IV SCH (08:41)
[2018-07-01] MEDS: APIXABAN 5 MG TAB PO SCH ×2 (08:41→20:07)
[2018-07-01] MEDS: AMIODARONE 200 MG TAB PO SCH ×3 (08:41→20:06)
--- NOTE | 2018-07-01 10:03 | P.PN ---
Subjective Progress Note Date: 07/01/18 Morbidly obese 77-year-old female seen eval reexamined on fourth floor patient is in process of being transferred to [facility] data predominantly has been obtained from the chart, presents emergency department complaining of generalized weakness. Patient states she has needed 5 days she's lost her appetite. Patient states over the last 2 days she's got to the point where she can't stand on her own and she feels as though she could be unstable. Patient stated that this is the main reason she came in because of her generalized weakness. Patient denies any pain. Patient denies chest pain difficulty breathing or shortness of breath per patient denies abdominal pain patient denies any recent nausea vomiting diarrhea. Patient denies any recent fever chills or cough. Patient denies any lightheadedness or dizziness. Patient denies any headache patient denies numbness weakness. Patient states she's got chronic bilateral cellulitis and edema and she states that is unchanged. Patient denies any dysuria hematuria urinary frequency. Patient denies any injury or trauma. Patient does have past medical history of A. fib and flutter but the patient reports that she is not currently on anticoagulation. Additional medical history includes asthma, heart failure, COPD, diabetes mellitus, hyperlipidemia, hypertension, osteoporosis, pneumonia, skin disorder, sleep apnea and depression. Patient's urinary analysis positive for a UTI. Urine culture ordered. Initial white blood cell 21.3. Repeat this a.m. 10.6. Patient's lactic acid 1.1. EKG completed showing sinus tachycardia with premature atrial complexes. Chest x-ray completed showing clinical correlation recommended for right lower lobe infiltrate. Pneumonia or atelectasis could be considered lungs otherwise appear clear. Patient is having low-grade temps. Patient started on Rocephin. This time patient denies any nausea or vomiting. Patient denies chest pain or shortness breath. Denies any urinary burning or frequency. She has been noted to have extensive erythematous edema of both lower extremity especially on the left side consistent with cellulitis would recommend to add vancomycin as well I suspect elevated d-dimer is likely related to ongoing inflammatory process however would recommend to continue treat her with aggressive DVT prophylaxis noted that duplex ultrasound lower extremities pending 06/28/2018: Patient seen and examined in the intensive care unit with nursing staff at bedside. Patient is seen and covering for Dr. Piper. The patient was intubated overnight due to respiratory distress. Patient was unable to tolerate BiPAP and became confused. The patient had an acute on chronic hypoxic and hypercapnic respiratory failure. She is currently tolerating a sedation holiday. She does follow complex commands. The patient will remain on the ventilator today. We will attempt another sedation holiday and spontaneous breathing trial in the morning. She is oxygenating well. Her hypercapnia is improving. Cardiology is initiating amiodarone drip. Lovenox has been discontinued and L Aquinas has been started for atrial fibrillation. Lower extremity Dopplers and CT of the chest are negative for DVT and PE. 06/29/2018: Patient seen and examined in the ICU with nursing staff at bedside. The patient had a sedation holiday this morning. Weaning trial was attempted, however, patient failed due to tachycardia and hypertension. Patient was placed back on sedation. Patient on levophed 1 mcg/min. Suctioning pink, frothy sputum from ETT. 06/30/2018: Patient seen and examined in the intensive care unit. The patient is off of levophed. She did self extubate early this morning. She is currently on 5 L nasal cannula. Case is discussed with nephrology and IV fluids are KVO. Patient does have a cough which she states is nonproductive. 07/01/2018: Patient seen and examined in the intensive care unit with nursing staff at bedside. The nurse is trying to get a new IV answers are not currently working. The patient is 98% on room air. Apparently there was a discussion last night with the nurse regarding possible DO NOT RESUSCITATE CODE STATUS. This is discussed with the patient today. She states she only wants "gentle pressure." It is explained that there is no gentle CPR. The patient does not seem to fully understand. Recommend full discussion with family regarding CODE STATUS. Objective - Vital Signs Vital signs: Vital Signs Temp 97.6 F 07/01/18 08:01 Pulse 82 07/01/18 08:01 Resp 23 07/01/18 08:01 BP 65/39 06/28/18 03:34 Pulse Ox 100 07/01/18 08:01 Intake & Output 06/30/18 07/01/18 07/01/18 18:59 06:59 18:59 Intake Total 641 541 69 Output Total 1235 1488 45 Balance -594 -947 24 Weight 117.4 kg Intake: IV 591 121 69 0.9% NS Pressure bag 36 36 9 Magnesium Sulfate-D5w Pmx 200 1 gm In Dextrose/Water 1 100ml.bag @ 100 mls/hr IVPB Q1H [facility] Rx#: [id number] Sodium Chloride 0.9% 1, 355 85 10 000 ml @ 50 mls/hr IV . Q20H [facility] Rx#:[id number] cefTRIAXone 2 gm In 50 Sodium Chloride 0.9% 50 ml @ 100 mls/hr IVPB Q24HR [facility] Rx#:[id number] Intake, IV Titration 50 Amount cefTRIAXone 2 gm In 50 Sodium Chloride 0.9% 50 ml @ 100 mls/hr IVPB Q24HR [facility] Rx#:[id number] Oral 420 Output: Urine 1235 1488 45 Other: Voiding Method Indwelling Catheter Indwelling Catheter ABP, PAP, CO, CI - Last Documented Arterial Blood Pressure 96/78 - Exam Gen.: Patient is Alert and oriented, no acute distress Cardiovascular: Irregular rate and rhythm, S1/S2 Lungs: Coarse breath sounds bilaterally Abdomen: Soft nontender nondistended positive bowel sounds Extremities: 2-3+ pitting edema with cellulitis and chronic venous stasis, stasis dermatitis - Labs CBC & Chem 7: 07/01/18 05:30 07/01/18 05:30 Labs: Abnormal Lab Results - Last 24 Hours (Table) 06/30/18 06/30/18 06/30/18 Range/Units 11:48 17:30 23:34 WBC (3.8-10.6) k/uL MCHC (31.0-37.0) g/dL Neutrophils # (1.3-7.7) k/uL Lymphocytes # (1.0-4.8) k/uL Carbon Dioxide (22-30) mmol/L BUN (7-17) mg/dL Glucose (74-99) mg/dL POC Glucose (mg/dL) 153 H 127 H 195 H (75-99) mg/dL Calcium (8.4-10.2) mg/dL Total Protein (6.3-8.2) g/dL Albumin (3.5-5.0) g/dL 07/01/18 07/01/18 07/01/18 Range/Units 00:20 05:30 05:30 WBC 16.4 H (3.8-10.6) k/uL MCHC 30.8 L (31.0-37.0) g/dL Neutrophils # 14.5 H (1.3-7.7) k/uL Lymphocytes # 0.7 L (1.0-4.8) k/uL Carbon Dioxide 32 H (22-30) mmol/L BUN 36 H (7-17) mg/dL Glucose 125 H (74-99) mg/dL POC Glucose (mg/dL) 190 H (75-99) mg/dL Calcium 8.3 L (8.4-10.2) mg/dL Total Protein 5.4 L (6.3-8.2) g/dL Albumin 2.6 L (3.5-5.0) g/dL 07/01/18 Range/Units 05:46 WBC (3.8-10.6) k/uL MCHC (31.0-37.0) g/dL Neutrophils # (1.3-7.7) k/uL Lymphocytes # (1.0-4.8) k/uL Carbon Dioxide (22-30) mmol/L BUN (7-17) mg/dL Glucose (74-99) mg/dL POC Glucose (mg/dL) 126 H (75-99) mg/dL Calcium (8.4-10.2) mg/dL Total Protein (6.3-8.2) g/dL Albumin (3.5-5.0) g/dL Microbiology - Last 24 Hours (Table) 06/26/18 17:25 Blood Culture - Preliminary Blood No Growth after 96 hours 06/27/18 16:15 Gram Stain - Final Leg - Right Wound Culture - Final Proteus mirabilis Methicillin resist S. aureus 06/28/18 04:55 Gram Stain - Final Sputum Sputum Culture - Final Assessment and Plan Assessment: Acute on chronic hypoxic and hypercapnic respiratory failure requiring mechanical ventilation, resolved Severe sepsis associated with multifactorial processes including right lower lobe pneumonia as well as extensive cellulitis of the lower extremity (MRSA), improving Respiratory acidosis, resolved Severe pulmonary hypertension Right lower lobe pneumonia Pulmonary vascular congestion and pulmonary edema Extensive cellulitis of bilateral lower extremity more so on the left side compared right side Morbid obesity Elevated d-dimer related to ongoing chronic inflammatory process given that spiral computed tomography scan of the chest negative for pulmonary embolism, dopplers negative for DVT UTI Paroxysmal atrial fibrillation, s/p cardioversion Chronic persistent asthma severe COPD Hypertension hypertensive cardiovascular disease Obstructive sleep apnea/Obesity hypoventilation syndrome Moderate PCM Plan: O2 to maintain saturation > or = 90% Bronchodilators Cardiology recommendations IV steroids taper Rocephin and Dapto per ID Eliquis for Afib, no evidence of PE/DVT SCDs and Protonix SSC insulin for BS control Wound care Ok to transfer out of ICU to [facility] today PT and OT Recommend code status discussion with family as the patient does not seem to fully understand at this time
[2018-07-01] MEDS: FUROSEMIDE 20 MG TAB PO SCH (11:58)
[2018-07-01 12:07] LABS: Glucose,Whole Blood 103 mg/dL (75-99)
--- NOTE | 2018-07-01 12:18 | P.PN ---
Subjective Progress Note Date: 07/01/18 This is a 77-year-old female patient of Dr. Palm. Patient patient presents to the emergency room with complaints of increased weakness and poor appetite for 5 days. Patient is a poor historian but does report that she had increased weakness with no appetite that progressively got worse over the past 2 days. Patient does have past medical history of A. fib and flutter but the patient reports that she is not currently on anticoagulation. Additional medical history includes asthma, heart failure, COPD, diabetes mellitus, hyperlipidemia , hypertension, osteoporosis, pneumonia, skin disorder, sleep apnea and depression. Patient's urinary analysis positive for a UTI. Urine culture ordered. Initial white blood cell 21.3. Repeat this a.m. 10.6. Patient's lactic acid 1.1. EKG completed showing sinus tachycardia with premature atrial complexes. Chest x-ray completed showing clinical correlation recommended for right lower lobe infiltrate. Pneumonia or atelectasis could be considered lungs otherwise appear clear. Patient is having low-grade temps. Patient started on Rocephin. This time patient denies any nausea or vomiting. Patient denies chest pain or shortness breath. Denies any urinary burning or frequency. On 06/28/2018 patient was transferred to [facility] last night. During the night patient was found to have increased lethargy, hypotension and A. fib with RVR. Patient was 17 and transferred to the intensive care unit where she was intubated and started on levothyroxine and cardioverted. Patient is currently resting on ventilation with sedation. Family is at bedside. Per patient's daughter Priscilla patient has been noncompliant with her medication and CPAP machine at home. Cardiology, critical care infectious disease is following On 06/30/2018 patient self extubated this AM. At this time patient is maintained on 3 L nasal cannula. Discussed case with Dr. Watt is with critical care. This time patient is resting comfortably in bed. Patient denies any chest pain or shortness of breath. Patient denies nausea vomiting or diarrhea. Denies any urinary burning or frequency. On 07/01/2018 patient is currently on room air much more alert. Platelet positive for MRSA. Infectious disease is following. Patient remains on IV antibiotics. This time patient denies chest pain or shortness breath. Patient denies nausea vomiting or diarrhea. Patient denies any urinary burning or frequency. Objective - Vital Signs Vital signs: Vital Signs Temp 97.6 F 07/01/18 12:00 Pulse 85 07/01/18 12:00 Resp 18 07/01/18 12:00 BP 65/39 06/28/18 03:34 Pulse Ox 95 07/01/18 12:00 Intake & Output 06/30/18 07/01/18 07/01/18 18:59 06:59 18:59 Intake Total 641 541 80 Output Total 1235 1488 110 Balance -594 -947 -30 Weight 117.4 kg 117.4 kg Intake: IV 591 121 80 0.9% NS Pressure bag 36 36 15 Magnesium Sulfate-D5w Pmx 200 1 gm In Dextrose/Water 1 100ml.bag @ 100 mls/hr IVPB Q1H [facility] Rx#: [id number] Sodium Chloride 0.9% 1, 355 85 15 000 ml @ 50 mls/hr IV . Q20H [facility] Rx#:[id number] cefTRIAXone 2 gm In 50 Sodium Chloride 0.9% 50 ml @ 100 mls/hr IVPB Q24HR [facility] Rx#:[id number] Intake, IV Titration 50 Amount cefTRIAXone 2 gm In 50 Sodium Chloride 0.9% 50 ml @ 100 mls/hr IVPB Q24HR [facility] Rx#:[id number] Oral 420 Output: Urine 1235 1488 110 Other: Voiding Method Indwelling Catheter Indwelling Catheter ABP, PAP, CO, CI - Last Documented Arterial Blood Pressure 131/65 - Exam Head normocephalic Neck supple Lungs diminished bilaterally with expiratory wheezing Heart regular rate and rhythm S1-S2, no rub or gallop Abdomen is soft nontender nondistended positive bowel sounds no hepatosplenomegaly Extremities no edema. bilaterall lower extremity cellulitis - Labs CBC & Chem 7: 07/01/18 05:30 07/01/18 05:30 Labs: Abnormal Lab Results - Last 24 Hours (Table) 06/30/18 06/30/18 07/01/18 Range/Units 17:30 23:34 00:20 WBC (3.8-10.6) k/uL MCHC (31.0-37.0) g/dL Neutrophils # (1.3-7.7) k/uL Lymphocytes # (1.0-4.8) k/uL Carbon Dioxide (22-30) mmol/L BUN (7-17) mg/dL Glucose (74-99) mg/dL POC Glucose (mg/dL) 127 H 195 H 190 H (75-99) mg/dL Calcium (8.4-10.2) mg/dL Total Protein (6.3-8.2) g/dL Albumin (3.5-5.0) g/dL 07/01/18 07/01/18 07/01/18 Range/Units 05:30 05:30 05:46 WBC 16.4 H (3.8-10.6) k/uL MCHC 30.8 L (31.0-37.0) g/dL Neutrophils # 14.5 H (1.3-7.7) k/uL Lymphocytes # 0.7 L (1.0-4.8) k/uL Carbon Dioxide 32 H (22-30) mmol/L BUN 36 H (7-17) mg/dL Glucose 125 H (74-99) mg/dL POC Glucose (mg/dL) 126 H (75-99) mg/dL Calcium 8.3 L (8.4-10.2) mg/dL Total Protein 5.4 L (6.3-8.2) g/dL Albumin 2.6 L (3.5-5.0) g/dL 07/01/18 Range/Units 12:02 WBC (3.8-10.6) k/uL MCHC (31.0-37.0) g/dL Neutrophils # (1.3-7.7) k/uL Lymphocytes # (1.0-4.8) k/uL Carbon Dioxide (22-30) mmol/L BUN (7-17) mg/dL Glucose (74-99) mg/dL POC Glucose (mg/dL) 103 H (75-99) mg/dL Calcium (8.4-10.2) mg/dL Total Protein (6.3-8.2) g/dL Albumin (3.5-5.0) g/dL Microbiology - Last 24 Hours (Table) 06/26/18 17:25 Blood Culture - Preliminary Blood No Growth after 96 hours 06/27/18 16:15 Gram Stain - Final Leg - Right Wound Culture - Final Proteus mirabilis Methicillin resist S. aureus 06/28/18 04:55 Gram Stain - Final Sputum Sputum Culture - Final Assessment and Plan Assessment: 1. Acute hypoxic per respiratory failure. CTA negative for PE. Patient maintained on mechanical ventilation at this time. Dr. Piper is her regular tip printer, Dr. Garrett is covering for this weekend. Patient was off sedation this morning however she did not tolerate she developed tachycardia and hypertension she will be restarted on sedation at this time. On 06/30/2018 patient did self extubate. She remains 2. Severe sepsis associated with multifactorial process including pneumonia, UTI and cellulitis. Infectious disease is following. Patient currently on daptomycin and Rocephin. Right lower extremity wound culture positive for presumptive MRSA and gram-negative bacilli currently patient is on contact isolation. White blood cell that increased to 20.8. Patient is on steroids at this time. The patient is by infectious disease maintained on IV antibiotics 3. History of paroxysmal atrial fibrillation. Patient denies being on anticoagulation. Cardiology services have been consulted. D-dimer has been ordered 4. History of mitral valve endocarditis in 2014. Patient was transferred to [facility] at that time. Patient at this time denies following up with cardiology services. Cardiology services have been consulted 5. History of asthma 6. History of COPD 7. History of hyperlipidemia 8. History of essential hypertension 9. History of sleep apnea. Per patient's daughter patient noncompliant with CPAP machine at home 10. History of depression 11. Atrial fibrillation with rapid ventricular response. Patient was cardioverted 3 times and started on Cardizem. Cardiology services are following. At this time patient is in sinus rhythm. Cardizem drip has been DC' d due to hypotension. 2-D echo completed showing an EF of 60-65% with severe pulmonary hypertension. Patient started on eliquis for anticoagulation. She started on amiodarone per cardiology 12. Hypotension likely related to sepsis and A. fib with RVR. Patient currently maintained on Levaquin 5 for pressure support 13. Oliguric. Nephrology services are following. Patient did receive 1 time dose of IV Lasix and IV fluids. Urine output has improved 14. Bilateral lower extremity cellulitis. Local wound culture with MRSA and Proteus patient currently on Rocephin and daptomycin. ID is following DVT prophylaxis Eliquis. GI prophylaxis Protonix. Critical care, cardiology, nephrology and infectious disease following Patient remains in the intensive care unit at this time Physical therapy consulted. Social consulted for discharge planning I performed an examination of the patient and discussed their management with the Nurse Practitioner. I have reviewed the Nurse Practitioner's notes and agree with the documented findings and plan of care
[2018-07-01 17:35] LABS: Glucose,Whole Blood 142 mg/dL (75-99)
[2018-07-01] MEDS: DAPTOmycin 500 MG in SODIUM CHLORIDE 0.9% 50 ML IVPB SCH (18:03)
[2018-07-01] MEDS ORDERED: ONDANSETRON 4 MG/2 ML VIAL IVP PRN (19:50)
[2018-07-01 21:20] LABS: Glucose,Whole Blood 145 mg/dL (75-99)
--- NOTE | 2018-07-01 23:16 | PN ---
PROGRESS NOTE This patient's medical records, labs and medications are reviewed. Patient remains comfortably sitting in the bed. Patient has been treated for cellulitis and sepsis with antibiotics. Patient had atrial fibrillation with a rapid ventricular response and was cardioverted. At present patient remains comfortable. Blood pressure is 131/61 mmHg, respiratory rate 25. First and second heart sounds are heard. Lungs are fairly clear to auscultation and percussion. Patient's creatinine remains stable. Patient has intermittent low urine output, but she does respond very well to Lasix. We will start the patient on Lasix 20 mg p.o. daily. Continue the rest of the medications. MMODL / IJN: [id number] /
[2018-07-02] MEDS: methylPREDNISolone SOD SUCCI 40 MG/ML 1 ML VIAL IV SCH ×3 (00:09→20:30)
--- NOTE | 2018-07-02 04:16 | PN ---
PROGRESS NOTE Patient is seen for followup for acute kidney injury. Her urine output dropped again last night. The patient received a dose of Lasix and her urine output has picked up. Serum creatinine remains at about 0.8 mg/dL. On examination patient is currently sitting up in bed. She is comfortable. Denies any significant complaints. Blood pressure this morning was 144/68, heart rate 89 per minute patient is afebrile examination of the heart S1, S2. Examination of the lungs, decreased breath sounds at bases. Abdomen is soft, obese, nontender. Examination lower extremity shows chronic skin changes. Both extremities are wrapped. LABS: Sodium 142, potassium 4.8, chloride 104, BUN 36, serum creatinine 0.85, calcium 8.3. ASSESSMENT: 1. Acute kidney injury with oliguria, currently resolved. Urine output occasionally drops down to about 25-30 mL an hour, but usually picks up after a small dose of Lasix. The patient is not on any IV fluids. She is not on any nephrotoxic agents. Her weight is down by about 2 kg. Renal function remains stable. 2. Acute hypoxic hypercapnic respiratory failure, status post self-extubation. 3. Right leg cellulitis. Wound culture grew MRSA and Proteus. 4. Sepsis from right lower lobe pneumonia and cellulitis. 5. Paroxysmal atrial fibrillation. 6. Severe pulmonary hypertension. PLAN: Continue off of IV fluids and continue to monitor urine output and electrolytes. MMODL / IJN: [id number] /
[2018-07-02 04:57] LABS: Basophils # (A) 0.1 k/uL (0-0.2); Basophils % (A) 1 %; Eosinophils # (A) 0.1 k/uL (0-0.7); Eosinophils % (A) 1 %; HCT 42.7 % (34.0-46.0); HGB 13.4 gm/dL (11.4-16.0); Lymphocytes # (A) 0.5 k/uL (1.0-4.8); Lymphocytes % (A) 3 %; MCH 28.7 pg (25.0-35.0); MCHC 31.5 g/dL (31.0-37.0); MCV 91.2 fL (80.0-100.0); Mean Platelet Volume 6.9; Monocytes # (A) 0.5 k/uL (0-1.0); Monocytes % (A) 4 %; Neutrophils # (A) 12.2 k/uL (1.3-7.7); Neutrophils % (A) 91 %; Platelet Count 255 k/uL (150-450); RBC 4.69 m/uL (3.80-5.40); RDW 14.3 % (11.5-15.5); WBC 13.5 k/uL (3.8-10.6)
[2018-07-02 05:23] LABS: Anion Gap 5 mmol/L; Blood Urea Nitrogen 34 mg/dL (7-17); Calcium 8.4 mg/dL (8.4-10.2); Carbon Dioxide 33 mmol/L (22-30); Chloride 100 mmol/L (98-107); Glucose 154 mg/dL (74-99); Phosphorus 4.5 mg/dL (2.5-4.5); Potassium 4.9 mmol/L (3.5-5.1); Sodium 138 mmol/L (137-145)
--- NOTE | 2018-07-02 06:01 | PN ---
PROGRESS NOTE DATE OF SERVICE: 07/01/2018. REASON FOR FOLLOWUP: 1. Right lower extremity cellulitis. 2. Question of pneumonia. INTERVAL HISTORY: The patient is afebrile. She is breathing comfortably. However, the patient did complain of some cough and some occasional sputum, but no chest pain. No abdominal pain or any pain to leg area. PHYSICAL EXAMINATION: Blood pressure 156/100 with a pulse of 80, temperature 98. She is 94% on room air. General description is an elderly female lying in bed in no distress. Respiratory system: Unlabored breathing, clear to auscultation anteriorly. Heart S1, S2. Regular rate and rhythm. Abdomen soft, no tenderness. Legs are currently wrapped up. No obvious drainage on the dressing. LABS: Hemoglobin is 12.4, white count 16.4. BUN of 36, creatinine 0.85. DIAGNOSTIC IMPRESSION AND PLAN: Patient with bilateral lower extremity cellulitis in this patient who has diffuse redness. Local wound culture with Proteus and MRSA. The patient is covered with daptomycin, Rocephin that will be continued for now and continue supportive care. MMODL / IJN: [id number] / MTDD
[2018-07-02 07:19] LABS: Glucose,Whole Blood 150 mg/dL (75-99)
[2018-07-02] MEDS: INSULIN ASPART (NovoLOG) 100 UNIT/ML VIAL SQ SCH ×4 (08:24→20:48)
[2018-07-02] MEDS: FUROSEMIDE 20 MG TAB PO SCH (08:26)
[2018-07-02] MEDS: AMIODARONE 200 MG TAB PO SCH ×3 (08:26→20:15)
[2018-07-02] MEDS: APIXABAN 5 MG TAB PO SCH ×2 (08:26→20:15)
[2018-07-02] MEDS: PANTOPRAZOLE 40 MG TABLET PO SCH (08:26)
[2018-07-02] MEDS: IPRATROPIUM-ALBUTEROL 3 ML NEB INHALATION SCH ×4 (09:20→20:15)
[2018-07-02] MEDS: SODIUM CHLORIDE 0.9% 500 ML 500 ML IV SCH (10:42)
--- NOTE | 2018-07-02 11:24 | XR ---
EXAMINATION TYPE: XR chest 1V portable DATE OF EXAM: 07/02/2018 COMPARISON: 07/01/2018 INDICATION: Tube placement, no other history is provided TECHNIQUE: Single frontal view of the chest is obtained. FINDINGS: The heart size is normal. The pulmonary vasculature is normal. There is some mild infiltrate developing at the right base with partial silhouetting of the right lashonda phragm. There is chronic elevation of the right diaphragm. Left basilar infiltrate has resolved. IMPRESSION: 1. Mild subsegmental atelectasis right base. 2. Resolution previous left basilar atelectasis.
[2018-07-02 11:56] LABS: Glucose,Whole Blood 140 mg/dL (75-99)
--- NOTE | 2018-07-02 13:12 | P.PN ---
Subjective Progress Note Date: 07/02/18 This is a 77-year-old female patient of Dr. Palm. Patient patient presents to the emergency room with complaints of increased weakness and poor appetite for 5 days. Patient is a poor historian but does report that she had increased weakness with no appetite that progressively got worse over the past 2 days. Patient does have past medical history of A. fib and flutter but the patient reports that she is not currently on anticoagulation. Additional medical history includes asthma, heart failure, COPD, diabetes mellitus, hyperlipidemia , hypertension, osteoporosis, pneumonia, skin disorder, sleep apnea and depression. Patient's urinary analysis positive for a UTI. Urine culture ordered. Initial white blood cell 21.3. Repeat this a.m. 10.6. Patient's lactic acid 1.1. EKG completed showing sinus tachycardia with premature atrial complexes. Chest x-ray completed showing clinical correlation recommended for right lower lobe infiltrate. Pneumonia or atelectasis could be considered lungs otherwise appear clear. Patient is having low-grade temps. Patient started on Rocephin. This time patient denies any nausea or vomiting. Patient denies chest pain or shortness breath. Denies any urinary burning or frequency. On 06/28/2018 patient was transferred to [facility] last night. During the night patient was found to have increased lethargy, hypotension and A. fib with RVR. Patient was 17 and transferred to the intensive care unit where she was intubated and started on levothyroxine and cardioverted. Patient is currently resting on ventilation with sedation. Family is at bedside. Per patient's daughter Priscilla patient has been noncompliant with her medication and CPAP machine at home. Cardiology, critical care infectious disease is following On 06/30/2018 patient self extubated this AM. At this time patient is maintained on 3 L nasal cannula. Discussed case with Dr. Watt is with critical care. This time patient is resting comfortably in bed. Patient denies any chest pain or shortness of breath. Patient denies nausea vomiting or diarrhea. Denies any urinary burning or frequency. On 07/01/2018 patient is currently on room air much more alert. Left leg culture positive for MRSA. Infectious disease is following. Patient remains on IV antibiotics. This time patient denies chest pain or shortness breath. Patient denies nausea vomiting or diarrhea. Patient denies any urinary burning or frequency. On 07/02/2018 patient is alert and oriented currently sitting up in chair. Patient states she feels much improved. This time patient denies chest pain or shortness of breath. Patient denies nausea vomiting or diarrhea. Patient denies any urinary burning or frequency. Patient does report that she is significantly weak. Persistent cystic and out of bed. Physical therapy has been consulted. Will consult criminal justice social worker ECF discharge planning Objective - Vital Signs Vital signs: Vital Signs Temp 97.5 F L 07/02/18 12:00 Pulse 82 07/02/18 12:00 Resp 19 07/02/18 12:00 BP 154/104 07/02/18 09:00 Pulse Ox 98 07/02/18 12:00 Intake & Output 07/01/18 07/02/18 07/02/18 18:59 06:59 18:59 Intake Total 229 143 85 Output Total 915 1175 1300 Balance -846 -5304 -0250 Weight 117.4 kg 119 kg Intake: IV 179 143 85 0.9% NS Pressure bag 39 33 15 Sodium Chloride 0.9% 1, 90 110 20 000 ml @ 50 mls/hr IV . Q20H [facility] Rx#:[id number] cefTRIAXone 2 gm In 50 50 Sodium Chloride 0.9% 50 ml @ 100 mls/hr IVPB Q24HR [facility] Rx#:[id number] Intake, IV Titration 50 Amount DAPTOmycin 500 mg In 50 Sodium Chloride 0.9% 50 ml @ 100 mls/hr IVPB Q24HR@1800 [facility] Rx#: [id number] Output: Urine 915 1175 1300 Other: Voiding Method Indwelling Catheter Indwelling Catheter Indwelling Catheter # Bowel Movements 0 ABP, PAP, CO, CI - Last Documented Arterial Blood Pressure 166/78 - Exam Head normocephalic Neck supple Lungs diminished bilaterally with expiratory wheezing Heart regular rate and rhythm S1-S2, no rub or gallop Abdomen is soft nontender nondistended positive bowel sounds no hepatosplenomegaly Extremities no edema. bilaterall lower extremity cellulitis - Labs CBC & Chem 7: 07/02/18 04:35 07/02/18 04:35 Labs: Abnormal Lab Results - Last 24 Hours (Table) 07/01/18 07/01/18 07/02/18 Range/Units 17:32 21:16 04:35 WBC (3.8-10.6) k/uL Neutrophils # (1.3-7.7) k/uL Lymphocytes # (1.0-4.8) k/uL Carbon Dioxide 33 H (22-30) mmol/L BUN 34 H (7-17) mg/dL Glucose 154 H (74-99) mg/dL POC Glucose (mg/dL) 142 H 145 H (75-99) mg/dL 07/02/18 07/02/18 07/02/18 Range/Units 04:35 06:51 11:53 WBC 13.5 H (3.8-10.6) k/uL Neutrophils # 12.2 H (1.3-7.7) k/uL Lymphocytes # 0.5 L (1.0-4.8) k/uL Carbon Dioxide (22-30) mmol/L BUN (7-17) mg/dL Glucose (74-99) mg/dL POC Glucose (mg/dL) 150 H 140 H (75-99) mg/dL Microbiology - Last 24 Hours (Table) 06/26/18 17:25 Blood Culture - Preliminary Blood No Growth after 120 hours Assessment and Plan Assessment: 1. Acute hypoxic per respiratory failure. CTA negative for PE. Patient maintained on mechanical ventilation at this time. Dr. Piper is her regular electromechanic, Dr. Garrett is covering for this weekend. Patient was off sedation this morning however she did not tolerate she developed tachycardia and hypertension she will be restarted on sedation at this time. On 06/30/2018 patient did self extubate. She currently on room air 2. Severe sepsis associated with multifactorial process including pneumonia, UTI and cellulitis. Infectious disease is following. Patient currently on daptomycin and Rocephin. Right lower extremity wound culture positive for presumptive MRSA and gram-negative bacilli currently patient is on contact isolation. White blood cell that increased to 20.8. Patient is on steroids at this time. IV antibiotics with daptomycin and Rocephin. Infectious disease is following 3. History of paroxysmal atrial fibrillation. Patient denies being on anticoagulation. Cardiology services have been consulted. D-dimer has been ordered. Per cardiology patient is now on amiodarone plus anticoagulation with eliquis 4. History of mitral valve endocarditis in 2014. Patient was transferred to [facility] at that time. Patient at this time denies following up with cardiology services. Cardiology services have been consulted 5. History of asthma 6. History of COPD 7. History of hyperlipidemia 8. History of essential hypertension 9. History of sleep apnea. Per patient's daughter patient noncompliant with CPAP machine at home 10. History of depression 11. Atrial fibrillation with rapid ventricular response. Patient was cardioverted 3 times and started on Cardizem. Cardiology services are following. At this time patient is in sinus rhythm. Cardizem drip has been DC' d due to hypotension. 2-D echo completed showing an EF of 60-65% with severe pulmonary hypertension. Patient started on eliquis for anticoagulation. She started on amiodarone per cardiology 12. Hypotension likely related to sepsis and A. fib with RVR. Patient currently maintained on Levaquin 5 for pressure support 13. Oliguric. Nephrology services are following. Patient did receive 1 time dose of IV Lasix and IV fluids. Urine output has improved. Lasix 20 mg daily has been added per nephrology. Urine has improved 14. Bilateral lower extremity cellulitis. Local wound culture with MRSA and Proteus patient currently on Rocephin and daptomycin. ID is following DVT prophylaxis Eliquis. GI prophylaxis Protonix. Critical care, cardiology, nephrology and infectious disease following Physical therapy consulted. Social consulted for discharge planning patient will most likely require ECF placement upon discharge I performed an examination of the patient and discussed their management with the Nurse Practitioner. I have reviewed the Nurse Practitioner's notes and agree with the documented findings and plan of care
[2018-07-02] MEDS: LISINOPRIL 10 MG TAB PO SCH (15:37)
[2018-07-02 15:45] LABS: Glucose,Whole Blood 186 mg/dL (75-99)
--- NOTE | 2018-07-02 16:49 | P.PN ---
Progress Note - Text Progress Note Date: 07/02/18 PROGRESS NOTE DATE OF SERVICE: 07/02/2018. REASON FOR FOLLOWUP: 1. Right lower extremity cellulitis. 2. Question of pneumonia. INTERVAL HISTORY: The patient remains to be afebrile. She is breathing comfortably. However, the patient continued to have some cough and some occasional sputum, but no chest pain. No abdominal pain , the patient denies any pain to leg area. PHYSICAL EXAMINATION: Blood pressure 150/90 with a pulse of 70, temperature 98. She is 94% on room air. General description is an elderly female lying in bed in no distress. Respiratory system: Unlabored breathing, clear to auscultation anteriorly. Heart S1, S2. Regular rate and rhythm. Abdomen soft, no tenderness. Legs are currently wrapped up. No obvious drainage on the dressing. LABS: Reviewed DIAGNOSTIC IMPRESSION AND PLAN: Patient with bilateral lower extremity cellulitis Local wound culture with Proteus and MRSA. The patient is covered with daptomycin because of her vancomycin allergy along with Rocephin that will be continued for now and repeat a chest x-ray in the morning , and continue supportive care.
[2018-07-02 17:01] LABS: Glucose,Whole Blood 165 mg/dL (75-99)
--- NOTE | 2018-07-02 17:50 | P.PN ---
Subjective Progress Note Date: 07/02/18 Morbidly obese 77-year-old female seen eval reexamined on fourth floor patient is in process of being transferred to [facility] data predominantly has been obtained from the chart, presents emergency department complaining of generalized weakness. Patient states she has needed 5 days she's lost her appetite. Patient states over the last 2 days she's got to the point where she can't stand on her own and she feels as though she could be unstable. Patient stated that this is the main reason she came in because of her generalized weakness. Patient denies any pain. Patient denies chest pain difficulty breathing or shortness of breath per patient denies abdominal pain patient denies any recent nausea vomiting diarrhea. Patient denies any recent fever chills or cough. Patient denies any lightheadedness or dizziness. Patient denies any headache patient denies numbness weakness. Patient states she's got chronic bilateral cellulitis and edema and she states that is unchanged. Patient denies any dysuria hematuria urinary frequency. Patient denies any injury or trauma. Patient does have past medical history of A. fib and flutter but the patient reports that she is not currently on anticoagulation. Additional medical history includes asthma, heart failure, COPD, diabetes mellitus, hyperlipidemia, hypertension, osteoporosis, pneumonia, skin disorder, sleep apnea and depression. Patient's urinary analysis positive for a UTI. Urine culture ordered. Initial white blood cell 21.3. Repeat this a.m. 10.6. Patient's lactic acid 1.1. EKG completed showing sinus tachycardia with premature atrial complexes. Chest x-ray completed showing clinical correlation recommended for right lower lobe infiltrate. Pneumonia or atelectasis could be considered lungs otherwise appear clear. Patient is having low-grade temps. Patient started on Rocephin. This time patient denies any nausea or vomiting. Patient denies chest pain or shortness breath. Denies any urinary burning or frequency. She has been noted to have extensive erythematous edema of both lower extremity especially on the left side consistent with cellulitis would recommend to add vancomycin as well I suspect elevated d-dimer is likely related to ongoing inflammatory process however would recommend to continue treat her with aggressive DVT prophylaxis noted that duplex ultrasound lower extremities pending 06/28/2018: Patient seen and examined in the intensive care unit with nursing staff at bedside. Patient is seen and covering for Dr. Piper. The patient was intubated overnight due to respiratory distress. Patient was unable to tolerate BiPAP and became confused. The patient had an acute on chronic hypoxic and hypercapnic respiratory failure. She is currently tolerating a sedation holiday. She does follow complex commands. The patient will remain on the ventilator today. We will attempt another sedation holiday and spontaneous breathing trial in the morning. She is oxygenating well. Her hypercapnia is improving. Cardiology is initiating amiodarone drip. Lovenox has been discontinued and L Aquinas has been started for atrial fibrillation. Lower extremity Dopplers and CT of the chest are negative for DVT and PE. 06/29/2018: Patient seen and examined in the ICU with nursing staff at bedside. The patient had a sedation holiday this morning. Weaning trial was attempted, however, patient failed due to tachycardia and hypertension. Patient was placed back on sedation. Patient on levophed 1 mcg/min. Suctioning pink, frothy sputum from ETT. 06/30/2018: Patient seen and examined in the intensive care unit. The patient is off of levophed. She did self extubate early this morning. She is currently on 5 L nasal cannula. Case is discussed with nephrology and IV fluids are KVO. Patient does have a cough which she states is nonproductive. 07/01/2018: Patient seen and examined in the intensive care unit with nursing staff at bedside. The nurse is trying to get a new IV answers are not currently working. The patient is 98% on room air. Apparently there was a discussion last night with the nurse regarding possible DO NOT RESUSCITATE CODE STATUS. This is discussed with the patient today. She states she only wants "gentle pressure." It is explained that there is no gentle CPR. The patient does not seem to fully understand. Recommend full discussion with family regarding CODE STATUS. 07/02/2018: Patient seen and examined in the ICU with nursing staff at bedside. Patient is sitting up in the chair. She is on 2L NC with O2 saturation 97%. She states she feels tired today. Urine output has been good. She has been hemodynamically stable. Objective - Vital Signs Vital signs: Vital Signs Temp 97.8 F 07/02/18 16:00 Pulse 85 07/02/18 17:00 Resp 25 H 07/02/18 17:00 BP 164/108 07/02/18 17:00 Pulse Ox 98 07/02/18 15:00 Intake & Output 07/01/18 07/02/18 07/02/18 18:59 06:59 18:59 Intake Total 229 143 464 Output Total 915 1175 2400 Balance -517 -8439 -6642 Weight 117.4 kg 119 kg 119 kg Intake: IV 179 143 344 0.9% NS Pressure bag 39 33 24 Sodium Chloride 0.9% 1, 90 110 270 000 ml @ 50 mls/hr IV . Q20H [facility] Rx#:[id number] cefTRIAXone 2 gm In 50 50 Sodium Chloride 0.9% 50 ml @ 100 mls/hr IVPB Q24HR [facility] Rx#:[id number] Intake, IV Titration 50 Amount DAPTOmycin 500 mg In 50 Sodium Chloride 0.9% 50 ml @ 100 mls/hr IVPB Q24HR@1800 [facility] Rx#: [id number] Oral 120 Output: Urine 915 1175 2400 Other: Voiding Method Indwelling Catheter Indwelling Catheter Indwelling Catheter # Bowel Movements 0 ABP, PAP, CO, CI - Last Documented Arterial Blood Pressure 159/69 - Exam Gen.: Patient is Alert and oriented, no acute distress Cardiovascular: Irregular rate and rhythm, S1/S2 Lungs: Diminished breath sounds at the bases Abdomen: Soft nontender nondistended positive bowel sounds Extremities: 2-3+ pitting edema with cellulitis and chronic venous stasis, stasis dermatitis - Labs CBC & Chem 7: 07/02/18 04:35 07/02/18 04:35 Labs: Abnormal Lab Results - Last 24 Hours (Table) 07/01/18 07/02/18 07/02/18 Range/Units 21:16 04:35 04:35 WBC 13.5 H (3.8-10.6) k/uL Neutrophils # 12.2 H (1.3-7.7) k/uL Lymphocytes # 0.5 L (1.0-4.8) k/uL Carbon Dioxide 33 H (22-30) mmol/L BUN 34 H (7-17) mg/dL Glucose 154 H (74-99) mg/dL POC Glucose (mg/dL) 145 H (75-99) mg/dL 07/02/18 07/02/18 07/02/18 Range/Units 06:51 11:53 15:43 WBC (3.8-10.6) k/uL Neutrophils # (1.3-7.7) k/uL Lymphocytes # (1.0-4.8) k/uL Carbon Dioxide (22-30) mmol/L BUN (7-17) mg/dL Glucose (74-99) mg/dL POC Glucose (mg/dL) 150 H 140 H 186 H (75-99) mg/dL 07/02/18 Range/Units 16:58 WBC (3.8-10.6) k/uL Neutrophils # (1.3-7.7) k/uL Lymphocytes # (1.0-4.8) k/uL Carbon Dioxide (22-30) mmol/L BUN (7-17) mg/dL Glucose (74-99) mg/dL POC Glucose (mg/dL) 165 H (75-99) mg/dL Microbiology - Last 24 Hours (Table) 06/26/18 17:25 Blood Culture - Preliminary Blood No Growth after 120 hours Assessment and Plan Assessment: Acute on chronic hypoxic and hypercapnic respiratory failure requiring mechanical ventilation, resolved Severe sepsis associated with multifactorial processes including right lower lobe pneumonia as well as extensive cellulitis of the lower extremity (MRSA), improving Respiratory acidosis, resolved Severe pulmonary hypertension Right lower lobe pneumonia Pulmonary vascular congestion and pulmonary edema Extensive cellulitis of bilateral lower extremity more so on the left side compared right side Morbid obesity Elevated d-dimer related to ongoing chronic inflammatory process given that spiral computed tomography scan of the chest negative for pulmonary embolism, dopplers negative for DVT UTI Paroxysmal atrial fibrillation, s/p cardioversion Chronic persistent asthma severe COPD Hypertension hypertensive cardiovascular disease Obstructive sleep apnea/Obesity hypoventilation syndrome Moderate PCM Plan: O2 to maintain saturation > or = 90% Bronchodilators Cardiology recommendations Steroids taper Rocephin and Dapto per ID Eliquis for Afib, no evidence of PE/DVT SCDs and Protonix SSC insulin for BS control Wound care PT and OT Patient seen and examined covering for Dr. Piper
[2018-07-02] MEDS: DAPTOmycin 500 MG in SODIUM CHLORIDE 0.9% 50 ML IVPB SCH (18:29)
[2018-07-02] MEDS: METOPROLOL TARTRATE 25 MG TAB PO SCH (20:15)
[2018-07-02 20:39] LABS: Glucose,Whole Blood 176 mg/dL (75-99)
--- NOTE | 2018-07-02 21:59 | PN ---
PROGRESS NOTE This patient's medical records, lab tests and vital signs are reviewed. Patient has been treated for sepsis and infection. Patient had paroxysmal atrial fibrillation. Patient now remains in normal sinus rhythm. She is sitting comfortably in the bed. The blood pressure is 159/69 mmHg. First and second heart sounds are heard. Lungs are clinically clear to auscultation and percussion. Patient remains in normal sinus rhythm. I will continue the patient on Cordarone 200 mg t.i.d. for one week and then decrease to 200 mg b.i.d. for one week and then cut down to once a day. Lasix 20 mg daily will be continued. We will start the patient on lisinopril 10 mg daily for control of the blood pressure and metoprolol succinate 50 mg daily. MMODL / IJN: [id number] /
--- NOTE | 2018-07-02 23:23 | PN ---
PROGRESS NOTE Patient was seen this morning in followup for acute kidney injury. Renal function has recovered. Patient remains with good urine output. She has been started on 20 mg of Lasix p.o. daily. This morning patient denied any significant complaints. She has been transferred out of the ICU. Blood pressure this morning was 154/104, heart rate 79 per minute. Patient was afebrile. EXAMINATION OF THE HEART: S1 and S2. EXAMINATION OF LUNGS: Bilateral breath sounds are heard. ABDOMEN: Soft, non-tender. Examination of lower extremities shows bilateral extremities to be wrapped. [employer] exam is grossly intact. Patient is moving all 4 extremities. Labs show sodium of 138, potassium 4.9, BUN 34, serum creatinine 0.6, hemoglobin 13.4 g/dL. ASSESSMENT: 1. Acute kidney injury, acute tubular necrosis, currently resolved. 2. Hypoxic respiratory failure, status post self-extubation. 3. Lower extremity cellulitis, maintained on antibiotics. 4. Sepsis, currently improved. 5. Previous history of mitral valve endocarditis. 6. Atrial fibrillation with rapid ventricular response, status post cardioversion. Currently patient is in sinus rhythm. PLAN: Continue with current dose of oral Lasix. Monitor electrolytes. We will sign off the case for now. Please do not hesitate to call for any further questions. MMODL / IJN: [id number] /
[2018-07-03 05:00] LABS: Basophils % (A) 0 %; Eosinophils # (A) 0.1 k/uL (0-0.7); Eosinophils % (A) 0 %; HGB 13.5 gm/dL (11.4-16.0); Lymphocytes # (A) 0.7 k/uL (1.0-4.8); Lymphocytes % (A) 5 %; MCH 28.4 pg (25.0-35.0); MCHC 31.4 g/dL (31.0-37.0); MCV 90.4 fL (80.0-100.0); Mean Platelet Volume 6.7; Monocytes # (A) 0.6 k/uL (0-1.0); Monocytes % (A) 4 %; Neutrophils # (A) 12.4 k/uL (1.3-7.7); Neutrophils % (A) 90 %; Platelet Count 292 k/uL (150-450); RBC 4.75 m/uL (3.80-5.40); RDW 14.3 % (11.5-15.5); WBC 13.9 k/uL (3.8-10.6)
[2018-07-03 05:21] LABS: Anion Gap 3 mmol/L; Blood Urea Nitrogen 42 mg/dL (7-17); Calcium 8.4 mg/dL (8.4-10.2); Carbon Dioxide 35 mmol/L (22-30); Chloride 102 mmol/L (98-107); Glucose 157 mg/dL (74-99); Magnesium 1.9 mg/dL (1.6-2.3); Phosphorus 4.7 mg/dL (2.5-4.5); Sodium 140 mmol/L (137-145)
[2018-07-03 05:22] LABS: Potassium 6.1 mmol/L (3.5-5.1)
[2018-07-03] MEDS ORDERED: INSULIN REGULAR 100 UNIT/ML VIAL IV ONE (06:29)
[2018-07-03] MEDS ORDERED: DEXTROSE 50%-WATER 50 ML SYRINGE IVP ONE (06:29)
[2018-07-03] MEDS ORDERED: FUROSEMIDE 10 MG/ML 2 ML VIAL IV STA (06:30)
[2018-07-03 06:55] LABS: Glucose,Whole Blood 134 mg/dL (75-99)
--- NOTE | 2018-07-03 07:16 | XR ---
EXAMINATION TYPE: XR chest 1V portable DATE OF EXAM: 07/03/2018 Comparison: 07/02/2018 Clinical History: 77-year-old female Tube placement Findings: Heart remains borderline enlarged. Atherosclerotic arch calcifications. Continued hazy bibasilar opac ities, left greater than right now, slightly improved on the right in the interval. Impression: Hazy bibasilar opacities suggesting underlying small pleural effusions with adjacent atelectasis and/ or consolidation. Left greater than right, some interval improvement at the right base.
[2018-07-03] MEDS: INSULIN ASPART (NovoLOG) 100 UNIT/ML VIAL SQ SCH ×4 (08:03→21:22)
[2018-07-03] MEDS: LISINOPRIL 10 MG TAB PO SCH (08:13)
[2018-07-03] MEDS: methylPREDNISolone SOD SUCCI 40 MG/ML 1 ML VIAL IV SCH ×2 (08:13→20:40)
[2018-07-03] MEDS: APIXABAN 5 MG TAB PO SCH ×2 (08:13→20:39)
[2018-07-03] MEDS: METOPROLOL TARTRATE 25 MG TAB PO SCH ×2 (08:13→20:39)
[2018-07-03] MEDS: AMIODARONE 200 MG TAB PO SCH ×3 (08:13→20:53)
[2018-07-03] MEDS: FUROSEMIDE 20 MG TAB PO SCH (08:13)
[2018-07-03] MEDS: PANTOPRAZOLE 40 MG TABLET PO SCH (08:13)
[2018-07-03] MEDS: IPRATROPIUM-ALBUTEROL 3 ML NEB INHALATION SCH ×4 (08:14→19:52)
[2018-07-03] MEDS: SODIUM CHLORIDE 0.9% 500 ML 500 ML IV SCH (08:18)
--- NOTE | 2018-07-03 11:00 | P.PN ---
Subjective Progress Note Date: 07/03/18 This is a 77-year-old female patient of Dr. Palm. Patient patient presents to the emergency room with complaints of increased weakness and poor appetite for 5 days. Patient is a poor historian but does report that she had increased weakness with no appetite that progressively got worse over the past 2 days. Patient does have past medical history of A. fib and flutter but the patient reports that she is not currently on anticoagulation. Additional medical history includes asthma, heart failure, COPD, diabetes mellitus, hyperlipidemia , hypertension, osteoporosis, pneumonia, skin disorder, sleep apnea and depression. Patient's urinary analysis positive for a UTI. Urine culture ordered. Initial white blood cell 21.3. Repeat this a.m. 10.6. Patient's lactic acid 1.1. EKG completed showing sinus tachycardia with premature atrial complexes. Chest x-ray completed showing clinical correlation recommended for right lower lobe infiltrate. Pneumonia or atelectasis could be considered lungs otherwise appear clear. Patient is having low-grade temps. Patient started on Rocephin. This time patient denies any nausea or vomiting. Patient denies chest pain or shortness breath. Denies any urinary burning or frequency. On 06/28/2018 patient was transferred to [facility] last night. During the night patient was found to have increased lethargy, hypotension and A. fib with RVR. Patient was 17 and transferred to the intensive care unit where she was intubated and started on levothyroxine and cardioverted. Patient is currently resting on ventilation with sedation. Family is at bedside. Per patient's daughter Priscilla patient has been noncompliant with her medication and CPAP machine at home. Cardiology, critical care infectious disease is following On 06/30/2018 patient self extubated this AM. At this time patient is maintained on 3 L nasal cannula. Discussed case with Dr. Watt is with critical care. This time patient is resting comfortably in bed. Patient denies any chest pain or shortness of breath. Patient denies nausea vomiting or diarrhea. Denies any urinary burning or frequency. On 07/01/2018 patient is currently on room air much more alert. Left leg culture positive for MRSA. Infectious disease is following. Patient remains on IV antibiotics. This time patient denies chest pain or shortness breath. Patient denies nausea vomiting or diarrhea. Patient denies any urinary burning or frequency. On 07/02/2018 patient is alert and oriented currently sitting up in chair. Patient states she feels much improved. This time patient denies chest pain or shortness of breath. Patient denies nausea vomiting or diarrhea. Patient denies any urinary burning or frequency. Patient does report that she is significantly weak. Persistent cystic and out of bed. Physical therapy has been consulted. Will consult social science instructor ECF discharge planning On 07/03/2018 patient is alert and oriented currently resting in bed. Patient daughter at bedside. At this time patient denies chest pain or shortness breath. Patient denies nausea vomiting or diarrhea. Patient denies any urinary burning or reconsider. Patient had elevated potassium at 6.1. Potassium level was treated per nephrology services. Will repeat potassium level at noon. Patient's heart rate is bradycardic in the 50s. The patient also started on Metroprolol yesterday per cardiology Objective - Vital Signs Vital signs: Vital Signs Temp 97.1 F L 07/03/18 04:00 Pulse 63 07/03/18 09:00 Resp 26 H 07/03/18 09:00 BP 119/79 07/03/18 09:00 Pulse Ox 94 L 07/03/18 06:00 Intake & Output 07/02/18 07/03/18 07/03/18 18:59 06:59 18:59 Intake Total 514 160 310 Output Total 2450 390 630 Balance -1936 -230 -320 Weight 119 kg 121.3 kg Intake: IV 394 160 160 0.9% NS Pressure bag 24 Sodium Chloride 0.9% 1, 320 160 160 000 ml @ 50 mls/hr IV . Q20H [facility] Rx#:[id number] cefTRIAXone 2 gm In 50 Sodium Chloride 0.9% 50 ml @ 100 mls/hr IVPB Q24HR [facility] Rx#:[id number] Intake, IV Titration 100 Amount cefTRIAXone 2 gm In 100 Sodium Chloride 0.9% 50 ml @ 100 mls/hr IVPB Q24HR [facility] Rx#:[id number] Oral 120 50 Output: Urine 2450 390 630 Other: Voiding Method Indwelling Catheter Indwelling Catheter Indwelling Catheter # Voids 2 # Bowel Movements 0 0 ABP, PAP, CO, CI - Last Documented Arterial Blood Pressure 159/69 - Exam Head normocephalic Neck supple Lungs diminished bilaterally with expiratory wheezing Heart regular rate and rhythm S1-S2, no rub or gallop Abdomen is soft nontender nondistended positive bowel sounds no hepatosplenomegaly Extremities no edema. bilaterall lower extremity cellulitis - Labs CBC & Chem 7: 07/03/18 04:45 07/03/18 04:45 Labs: Abnormal Lab Results - Last 24 Hours (Table) 07/02/18 07/02/18 07/02/18 Range/Units 11:53 15:43 16:58 WBC (3.8-10.6) k/uL Neutrophils # (1.3-7.7) k/uL Lymphocytes # (1.0-4.8) k/uL Potassium (3.5-5.1) mmol/L Carbon Dioxide (22-30) mmol/L BUN (7-17) mg/dL Glucose (74-99) mg/dL POC Glucose (mg/dL) 140 H 186 H 165 H (75-99) mg/dL Phosphorus (2.5-4.5) mg/dL 07/02/18 07/03/18 07/03/18 Range/Units 20:36 04:45 04:45 WBC 13.9 H (3.8-10.6) k/uL Neutrophils # 12.4 H (1.3-7.7) k/uL Lymphocytes # 0.7 L (1.0-4.8) k/uL Potassium 6.1 H* (3.5-5.1) mmol/L Carbon Dioxide 35 H (22-30) mmol/L BUN 42 H (7-17) mg/dL Glucose 157 H (74-99) mg/dL POC Glucose (mg/dL) 176 H (75-99) mg/dL Phosphorus 4.7 H (2.5-4.5) mg/dL 07/03/18 Range/Units 06:52 WBC (3.8-10.6) k/uL Neutrophils # (1.3-7.7) k/uL Lymphocytes # (1.0-4.8) k/uL Potassium (3.5-5.1) mmol/L Carbon Dioxide (22-30) mmol/L BUN (7-17) mg/dL Glucose (74-99) mg/dL POC Glucose (mg/dL) 134 H (75-99) mg/dL Phosphorus (2.5-4.5) mg/dL Microbiology - Last 24 Hours (Table) 06/26/18 17:25 Blood Culture - Final Blood No Growth after 144 hours Assessment and Plan Assessment: 1. Acute hypoxic per respiratory failure. CTA negative for PE. Patient maintained on mechanical ventilation at this time. Dr. Piper is her regular captain room service, Dr. Garrett is covering for this weekend. Patient was off sedation this morning however she did not tolerate she developed tachycardia and hypertension she will be restarted on sedation at this time. On 06/30/2018 patient did self extubate. She currently on room air 2. Severe sepsis associated with multifactorial process including pneumonia, UTI and cellulitis. Infectious disease is following. Patient currently on daptomycin and Rocephin. Right lower extremity wound culture positive for presumptive MRSA and gram-negative bacilli currently patient is on contact isolation. White blood cell that increased to 20.8. Patient is on steroids at this time. IV antibiotics with daptomycin and Rocephin. Infectious disease is following 3. History of paroxysmal atrial fibrillation. Patient denies being on anticoagulation. Cardiology services have been consulted. D-dimer has been ordered. Per cardiology patient is now on amiodarone plus anticoagulation with eliquis. Patient also started on metoprolol per cardiology 4. History of mitral valve endocarditis in 2014. Patient was transferred to [facility] at that time. Patient at this time denies following up with cardiology services. Cardiology services have been consulted 5. History of asthma 6. History of COPD 7. History of hyperlipidemia 8. History of essential hypertension 9. History of sleep apnea. Per patient's daughter patient noncompliant with CPAP machine at home 10. History of depression 11. Atrial fibrillation with rapid ventricular response. Patient was cardioverted 3 times and started on Cardizem. Cardiology services are following. At this time patient is in sinus rhythm. Cardizem drip has been DC' d due to hypotension. 2-D echo completed showing an EF of 60-65% with severe pulmonary hypertension. Patient started on eliquis for anticoagulation. She started on amiodarone per cardiology 12. Hypotension likely related to sepsis and A. fib with RVR. Patient currently maintained on Levaquin 5 for pressure support 13. Oliguric. Nephrology services are following. Patient did receive 1 time dose of IV Lasix and IV fluids. Urine output has improved. Lasix 20 mg daily has been added per nephrology. Urine has improved 14. Bilateral lower extremity cellulitis. Local wound culture with MRSA and Proteus patient currently on Rocephin and daptomycin. ID is following 15. Hyperkalemia. Potassium 6.1. potassium treated per nephrology services. Repeat ordered for noon DVT prophylaxis Eliquis. GI prophylaxis Protonix. Critical care, cardiology, nephrology and infectious disease following Physical therapy consulted. Social consulted for discharge planning patient will most likely require ECF placement upon discharge I performed an examination of the patient and discussed their management with the Nurse Practitioner. I have reviewed the Nurse Practitioner's notes and agree with the documented findings and plan of care
[2018-07-03 11:48] LABS: Glucose,Whole Blood 174 mg/dL (75-99)
--- NOTE | 2018-07-03 14:43 | P.PN ---
Subjective Progress Note Date: 07/03/18 Morbidly obese 77-year-old female seen eval reexamined on fourth floor patient is in process of being transferred to [facility] data predominantly has been obtained from the chart, presents emergency department complaining of generalized weakness. Patient states she has needed 5 days she's lost her appetite. Patient states over the last 2 days she's got to the point where she can't stand on her own and she feels as though she could be unstable. Patient stated that this is the main reason she came in because of her generalized weakness. Patient denies any pain. Patient denies chest pain difficulty breathing or shortness of breath per patient denies abdominal pain patient denies any recent nausea vomiting diarrhea. Patient denies any recent fever chills or cough. Patient denies any lightheadedness or dizziness. Patient denies any headache patient denies numbness weakness. Patient states she's got chronic bilateral cellulitis and edema and she states that is unchanged. Patient denies any dysuria hematuria urinary frequency. Patient denies any injury or trauma. Patient does have past medical history of A. fib and flutter but the patient reports that she is not currently on anticoagulation. Additional medical history includes asthma, heart failure, COPD, diabetes mellitus, hyperlipidemia, hypertension, osteoporosis, pneumonia, skin disorder, sleep apnea and depression. Patient's urinary analysis positive for a UTI. Urine culture ordered. Initial white blood cell 21.3. Repeat this a.m. 10.6. Patient's lactic acid 1.1. EKG completed showing sinus tachycardia with premature atrial complexes. Chest x-ray completed showing clinical correlation recommended for right lower lobe infiltrate. Pneumonia or atelectasis could be considered lungs otherwise appear clear. Patient is having low-grade temps. Patient started on Rocephin. This time patient denies any nausea or vomiting. Patient denies chest pain or shortness breath. Denies any urinary burning or frequency. She has been noted to have extensive erythematous edema of both lower extremity especially on the left side consistent with cellulitis would recommend to add vancomycin as well I suspect elevated d-dimer is likely related to ongoing inflammatory process however would recommend to continue treat her with aggressive DVT prophylaxis noted that duplex ultrasound lower extremities pending 06/28/2018: Patient seen and examined in the intensive care unit with nursing staff at bedside. Patient is seen and covering for Dr. Piper. The patient was intubated overnight due to respiratory distress. Patient was unable to tolerate BiPAP and became confused. The patient had an acute on chronic hypoxic and hypercapnic respiratory failure. She is currently tolerating a sedation holiday. She does follow complex commands. The patient will remain on the ventilator today. We will attempt another sedation holiday and spontaneous breathing trial in the morning. She is oxygenating well. Her hypercapnia is improving. Cardiology is initiating amiodarone drip. Lovenox has been discontinued and L Aquinas has been started for atrial fibrillation. Lower extremity Dopplers and CT of the chest are negative for DVT and PE. 06/29/2018: Patient seen and examined in the ICU with nursing staff at bedside. The patient had a sedation holiday this morning. Weaning trial was attempted, however, patient failed due to tachycardia and hypertension. Patient was placed back on sedation. Patient on levophed 1 mcg/min. Suctioning pink, frothy sputum from ETT. 06/30/2018: Patient seen and examined in the intensive care unit. The patient is off of levophed. She did self extubate early this morning. She is currently on 5 L nasal cannula. Case is discussed with nephrology and IV fluids are KVO. Patient does have a cough which she states is nonproductive. 07/01/2018: Patient seen and examined in the intensive care unit with nursing staff at bedside. The nurse is trying to get a new IV answers are not currently working. The patient is 98% on room air. Apparently there was a discussion last night with the nurse regarding possible DO NOT RESUSCITATE CODE STATUS. This is discussed with the patient today. She states she only wants "gentle pressure." It is explained that there is no gentle CPR. The patient does not seem to fully understand. Recommend full discussion with family regarding CODE STATUS. 07/02/2018: Patient seen and examined in the ICU with nursing staff at bedside. Patient is sitting up in the chair. She is on 2L NC with O2 saturation 97%. She states she feels tired today. Urine output has been good. She has been hemodynamically stable. 07/03/2018: Patient seen and examined. Patient is on 2 L nasal cannula. She is sitting up in the chair. She states she feels really good today. She is asking for ice cream. Objective - Vital Signs Vital signs: Vital Signs Temp 97.1 F L 07/03/18 04:00 Pulse 73 07/03/18 13:50 Resp 22 07/03/18 13:00 BP 139/72 07/03/18 13:00 Pulse Ox 94 L 07/03/18 06:00 Intake & Output 07/02/18 07/03/18 07/03/18 18:59 06:59 18:59 Intake Total 514 160 660 Output Total 2450 390 1530 Balance -1936 230 -870 Weight 119 kg 121.3 kg Intake: IV 394 160 310 0.9% NS Pressure bag 24 Sodium Chloride 0.9% 1, 320 160 310 000 ml @ 50 mls/hr IV . Q20H [facility] Rx#:[id number] cefTRIAXone 2 gm In 50 Sodium Chloride 0.9% 50 ml @ 100 mls/hr IVPB Q24HR [facility] Rx#:[id number] Intake, IV Titration 100 Amount cefTRIAXone 2 gm In 100 Sodium Chloride 0.9% 50 ml @ 100 mls/hr IVPB Q24HR [facility] Rx#:[id number] Oral 120 250 Output: Urine 2450 390 1530 Other: Voiding Method Indwelling Catheter Indwelling Catheter Indwelling Catheter # Voids 2 # Bowel Movements 0 0 ABP, PAP, CO, CI - Last Documented Arterial Blood Pressure 159/69 - Exam Gen.: Patient is Alert and oriented, no acute distress Cardiovascular: Irregular rate and rhythm, S1/S2 Lungs: Diminished breath sounds at the bases Abdomen: Soft nontender nondistended positive bowel sounds Extremities: 2-3+ pitting edema with cellulitis and chronic venous stasis, stasis dermatitis - Labs CBC & Chem 7: 07/03/18 04:45 07/03/18 12:17 Labs: Abnormal Lab Results - Last 24 Hours (Table) 07/02/18 07/02/18 07/02/18 Range/Units 15:43 16:58 20:36 WBC (3.8-10.6) k/uL Neutrophils # (1.3-7.7) k/uL Lymphocytes # (1.0-4.8) k/uL Potassium (3.5-5.1) mmol/L Carbon Dioxide (22-30) mmol/L BUN (7-17) mg/dL Glucose (74-99) mg/dL POC Glucose (mg/dL) 186 H 165 H 176 H (75-99) mg/dL Phosphorus (2.5-4.5) mg/dL 07/03/18 07/03/18 07/03/18 Range/Units 04:45 04:45 06:52 WBC 13.9 H (3.8-10.6) k/uL Neutrophils # 12.4 H (1.3-7.7) k/uL Lymphocytes # 0.7 L (1.0-4.8) k/uL Potassium 6.1 H* (3.5-5.1) mmol/L Carbon Dioxide 35 H (22-30) mmol/L BUN 42 H (7-17) mg/dL Glucose 157 H (74-99) mg/dL POC Glucose (mg/dL) 134 H (75-99) mg/dL Phosphorus 4.7 H (2.5-4.5) mg/dL 07/03/18 Range/Units 11:44 WBC (3.8-10.6) k/uL Neutrophils # (1.3-7.7) k/uL Lymphocytes # (1.0-4.8) k/uL Potassium (3.5-5.1) mmol/L Carbon Dioxide (22-30) mmol/L BUN (7-17) mg/dL Glucose (74-99) mg/dL POC Glucose (mg/dL) 174 H (75-99) mg/dL Phosphorus (2.5-4.5) mg/dL Microbiology - Last 24 Hours (Table) 06/26/18 17:25 Blood Culture - Final Blood No Growth after 144 hours Assessment and Plan Assessment: Acute on chronic hypoxic and hypercapnic respiratory failure requiring mechanical ventilation, resolved Severe sepsis associated with multifactorial processes including right lower lobe pneumonia as well as extensive cellulitis of the lower extremity (MRSA), improving Respiratory acidosis, resolved Severe pulmonary hypertension Right lower lobe pneumonia Pulmonary vascular congestion and pulmonary edema Extensive cellulitis of bilateral lower extremity more so on the left side compared right side Morbid obesity Elevated d-dimer related to ongoing chronic inflammatory process given that spiral computed tomography scan of the chest negative for pulmonary embolism, dopplers negative for DVT UTI Paroxysmal atrial fibrillation, s/p cardioversion Chronic persistent asthma severe COPD Hypertension hypertensive cardiovascular disease Obstructive sleep apnea/Obesity hypoventilation syndrome Moderate PCM Plan: O2 to maintain saturation > or = 90% Bronchodilators Cardiology recommendations Steroids taper Rocephin and Dapto per ID Eliquis for Afib, no evidence of PE/DVT SCDs and Protonix SSC insulin for BS control Wound care PT and OT Patient seen and examined covering for Dr. Piper
--- NOTE | 2018-07-03 17:00 | PN ---
PROGRESS NOTE Patient is seen for followup for acute kidney injury. Renal function has improved significantly; however, patient's potassium was elevated at 6.1 this morning, and therefore I am seeing her again. Patient did receive IV insulin and had D50. Repeat potassium was down to 4.6. There is no active GI bleed noted at this time. Patient is maintained on Lasix, which will also help with the hyperkalemia. She will be maintained on a low-potassium diet. On examination today, patient is comfortable. Blood pressure from this morning 119/79, heart rate of 63 per minute. Patient is afebrile. EXAMINATION OF THE HEART: S1 and S2. EXAMINATION OF LUNGS: Bilateral breath sounds are heard. ABDOMEN: Soft, non-tender. Examination of lower extremities shows chronic skin changes. Bilateral extremities are wrapped. QUALITY CONTROL ENGINEER exam is grossly intact. Labs show sodium of 140, potassium 6.1, chloride 102, CO2 35, BUN 42, serum creatinine 0.68, hemoglobin 13.5 g/dL, phosphorus 4.7. ASSESSMENT: 1. Acute kidney injury, currently resolved. 2. Hyperkalemia. Patient's renal function has improved. However, she has been started on JOHN inhibitors. I will decrease the dose of lisinopril and we will repeat labs in a.m. She should be maintained on a low-potassium diet. Blood sugars should be controlled as well. Repeat potassium was down to 4.6. No evidence of active GI bleed noted at this time. 3. Sepsis from lower extremity cellulitis. 4. Acute hypoxic respiratory failure, currently extubated, doing well. 5. Atrial fibrillation, status post cardioversion. 6. Previous history of mitral valve endocarditis. PLAN: Continue with Lasix. Decrease dose of lisinopril, given her hyperkalemia. Repeat labs in a.m. If potassium remains elevated, we may need to discontinue the lisinopril. MMODL / IJN: [id number] /
[2018-07-03 17:16] LABS: Glucose,Whole Blood 140 mg/dL (75-99)
--- NOTE | 2018-07-03 19:42 | PN ---
PROGRESS NOTE DATE OF SERVICE: 07/03/2018 REASON FOR FOLLOWUP: 1. Lower extremity cellulitis. 2. Question of pneumonia. INTERVAL HISTORY: The patient is afebrile. She seems to be breathing more comfortably. The patient did have some dry irritating cough, but was not bringing up any sputum. No chest pain. No abdominal pain. No diarrhea. PHYSICAL EXAMINATION: Blood pressure 139/72 with a pulse of 63, temperature 98 degrees. General description is an elderly female lying in bed in no distress. RESPIRATORY SYSTEM: Unlabored breathing with decreased breath sounds at the base. No wheeze. HEART: S1, S2. Regular rate and rhythm. ABDOMEN: Soft. No tenderness. LABS: Hemoglobin is 13.5, white count 13.9, BUN of 42, creatinine 0.68. DIAGNOSTIC IMPRESSION AND PLAN: Patient with bilateral extremity wounds with secondary cellulitis. The patient has shown overall clinical improvement. Wound culture with Proteus mirabilis, MRSA. The patient is on daptomycin and Rocephin; to continue. Local care with Chau wraps to keep the swelling down. Continue with supportive care. MMODL / IJN: [id number] /
[2018-07-03 20:50] LABS: Glucose,Whole Blood 232 mg/dL (75-99)
[2018-07-03] MEDS: DAPTOmycin 500 MG in SODIUM CHLORIDE 0.9% 50 ML IVPB SCH (20:51)
[2018-07-04 06:56] LABS: Basophils # (A) 0.1 k/uL (0-0.2); Basophils % (A) 0 %; Eosinophils % (A) 0 %; HCT 45.7 % (34.0-46.0); Hypochromasia Slight; Lymphocytes # (A) 0.6 k/uL (1.0-4.8); Lymphocytes % (A) 3 %; MCH 28.5 pg (25.0-35.0); MCHC 30.7 g/dL (31.0-37.0); MCV 92.9 fL (80.0-100.0); Mean Platelet Volume 6.9; Monocytes # (A) 0.8 k/uL (0-1.0); Monocytes % (A) 5 %; Neutrophils # (A) 15.7 k/uL (1.3-7.7); Neutrophils % (A) 91 %; Platelet Count 287 k/uL (150-450); RBC 4.92 m/uL (3.80-5.40); WBC 17.2 k/uL (3.8-10.6)
[2018-07-04 07:08] LABS: Albumin 2.6 g/dL (3.5-5.0); Calcium 8.4 mg/dL (8.4-10.2); Total Bilirubin 0.5 mg/dL (0.2-1.3); Total Protein 5.3 g/dL (6.3-8.2)
[2018-07-04] MEDS: INSULIN ASPART (NovoLOG) 100 UNIT/ML VIAL SQ SCH ×4 (07:34→21:59)
[2018-07-04 08:00] VITALS: BMI 42.7
[2018-07-04] MEDS: IPRATROPIUM-ALBUTEROL 3 ML NEB INHALATION SCH ×4 (08:08→19:45)
[2018-07-04] MEDS: SODIUM CHLORIDE 0.9% 500 ML 500 ML IV SCH (09:30)
[2018-07-04] MEDS: FUROSEMIDE 20 MG TAB PO SCH (09:31)
[2018-07-04] MEDS: AMIODARONE 200 MG TAB PO SCH ×3 (09:31→21:51)
[2018-07-04] MEDS: APIXABAN 5 MG TAB PO SCH ×2 (09:31→21:50)
[2018-07-04] MEDS: LISINOPRIL 5 MG TAB PO SCH (09:31)
[2018-07-04] MEDS: METOPROLOL TARTRATE 25 MG TAB PO SCH ×2 (09:32→21:50)
[2018-07-04] MEDS: PANTOPRAZOLE 40 MG TABLET PO SCH (09:32)
[2018-07-04] MEDS: methylPREDNISolone SOD SUCCI 40 MG/ML 1 ML VIAL IV SCH (09:32)
--- NOTE | 2018-07-04 10:58 | P.PN ---
Subjective Progress Note Date: 07/04/18 This is a 77-year-old female patient of Dr. Palm. Patient patient presents to the emergency room with complaints of increased weakness and poor appetite for 5 days. Patient is a poor historian but does report that she had increased weakness with no appetite that progressively got worse over the past 2 days. Patient does have past medical history of A. fib and flutter but the patient reports that she is not currently on anticoagulation. Additional medical history includes asthma, heart failure, COPD, diabetes mellitus, hyperlipidemia , hypertension, osteoporosis, pneumonia, skin disorder, sleep apnea and depression. Patient's urinary analysis positive for a UTI. Urine culture ordered. Initial white blood cell 21.3. Repeat this a.m. 10.6. Patient's lactic acid 1.1. EKG completed showing sinus tachycardia with premature atrial complexes. Chest x-ray completed showing clinical correlation recommended for right lower lobe infiltrate. Pneumonia or atelectasis could be considered lungs otherwise appear clear. Patient is having low-grade temps. Patient started on Rocephin. This time patient denies any nausea or vomiting. Patient denies chest pain or shortness breath. Denies any urinary burning or frequency. On 06/28/2018 patient was transferred to [facility] last night. During the night patient was found to have increased lethargy, hypotension and A. fib with RVR. Patient was 17 and transferred to the intensive care unit where she was intubated and started on levothyroxine and cardioverted. Patient is currently resting on ventilation with sedation. Family is at bedside. Per patient's daughter Pricsilla patient has been noncompliant with her medication and CPAP machine at home. Cardiology, critical care infectious disease is following On 06/30/2018 patient self extubated this AM. At this time patient is maintained on 3 L nasal cannula. Discussed case with Dr. Wtat is with critical care. This time patient is resting comfortably in bed. Patient denies any chest pain or shortness of breath. Patient denies nausea vomiting or diarrhea. Denies any urinary burning or frequency. On 07/01/2018 patient is currently on room air much more alert. Left leg culture positive for MRSA. Infectious disease is following. Patient remains on IV antibiotics. This time patient denies chest pain or shortness breath. Patient denies nausea vomiting or diarrhea. Patient denies any urinary burning or frequency. On 07/02/2018 patient is alert and oriented currently sitting up in chair. Patient states she feels much improved. This time patient denies chest pain or shortness of breath. Patient denies nausea vomiting or diarrhea. Patient denies any urinary burning or frequency. Patient does report that she is significantly weak. Persistent cystic and out of bed. Physical therapy has been consulted. Will consult social services specialist F discharge planning On 07/03/2018 patient is alert and oriented currently resting in bed. Patient daughter at bedside. At this time patient denies chest pain or shortness breath. Patient denies nausea vomiting or diarrhea. Patient denies any urinary burning or reconsider. Patient had elevated potassium at 6.1. Potassium level was treated per nephrology services. Will repeat potassium level at noon. Patient's heart rate is bradycardic in the 50s. The patient also started on Metroprolol yesterday per cardiology On 07/04/2018 patient is alert and oriented sitting up in bed. Potassium currently 5.0. Lisinopril has been decreased per nephrology services. This time patient denies chest pain or shortness breath. Patient denies nausea vomiting or diarrhea. Patient denies any urinary burning or frequency. Patient remains on Rocephin and daptomycin IV antibiotics. Objective - Vital Signs Vital signs: Vital Signs Temp 97.1 F L 07/03/18 04:00 Pulse 67 07/04/18 08:10 Resp 18 07/04/18 07:28 BP 140/67 07/03/18 14:00 Pulse Ox 94 L 07/03/18 06:00 Intake & Output 07/03/18 07/04/18 07/04/18 18:59 06:59 18:59 Intake Total 810 600 100 Output Total 2180 660 190 Balance -1370 -60 -90 Weight 113 kg 113 kg Intake: IV 410 600 100 Sodium Chloride 0.9% 1, 410 600 100 000 ml @ 50 mls/hr IV . Q20H [facility] Rx#:[id number] Intake, IV Titration 100 Amount cefTRIAXone 2 gm In 100 Sodium Chloride 0.9% 50 ml @ 100 mls/hr IVPB Q24HR [facility] Rx#:[id number] Oral 300 Output: Urine 2180 660 190 Other: Voiding Method Indwelling Catheter Indwelling Catheter Indwelling Catheter # Voids 2 # Bowel Movements 0 0 0 ABP, PAP, CO, CI - Last Documented Arterial Blood Pressure 159/69 - Exam Head normocephalic Neck supple Lungs diminished bilaterally with expiratory wheezing Heart regular rate and rhythm S1-S2, no rub or gallop Abdomen is soft nontender nondistended positive bowel sounds no hepatosplenomegaly Extremities no edema. bilaterall lower extremity cellulitis - Labs CBC & Chem 7: 07/04/18 06:40 07/04/18 06:40 Labs: Abnormal Lab Results - Last 24 Hours (Table) 07/03/18 07/03/18 07/03/18 Range/Units 11:44 17:02 20:46 WBC (3.8-10.6) k/uL MCHC (31.0-37.0) g/dL Neutrophils # (1.3-7.7) k/uL Lymphocytes # (1.0-4.8) k/uL Chloride (98-107) mmol/L Carbon Dioxide (22-30) mmol/L BUN (7-17) mg/dL Glucose (74-99) mg/dL POC Glucose (mg/dL) 174 H 140 H 232 H (75-99) mg/dL ALT (9-52) U/L Total Protein (6.3-8.2) g/dL Albumin (3.5-5.0) g/dL 07/04/18 07/04/18 Range/Units 06:40 06:40 WBC 17.2 H (3.8-10.6) k/uL MCHC 30.7 L (31.0-37.0) g/dL Neutrophils # 15.7 H (1.3-7.7) k/uL Lymphocytes # 0.6 L (1.0-4.8) k/uL Chloride 95 L (98-107) mmol/L Carbon Dioxide 43 H* (22-30) mmol/L BUN 41 H (7-17) mg/dL Glucose 156 H (74-99) mg/dL POC Glucose (mg/dL) (75-99) mg/dL ALT 75 H (9-52) U/L Total Protein 5.3 L (6.3-8.2) g/dL Albumin 2.6 L (3.5-5.0) g/dL Assessment and Plan Assessment: 1. Acute hypoxic per respiratory failure. CTA negative for PE. Patient maintained on mechanical ventilation at this time. Dr. Piper is her regular jr. java developer, Dr. Garrett is covering for this weekend. Patient was off sedation this morning however she did not tolerate she developed tachycardia and hypertension she will be restarted on sedation at this time. On 06/30/2018 patient did self extubate. She currently on room air 2. Severe sepsis associated with multifactorial process including pneumonia, UTI and cellulitis. Infectious disease is following. Patient currently on daptomycin and Rocephin. Right lower extremity wound culture positive for presumptive MRSA and gram-negative bacilli currently patient is on contact isolation. White blood cell that increased to 20.8. Patient is on steroids at this time. IV antibiotics with daptomycin and Rocephin. Infectious disease is following 3. History of paroxysmal atrial fibrillation. Patient denies being on anticoagulation. Cardiology services have been consulted. D-dimer has been ordered. Per cardiology patient is now on amiodarone plus anticoagulation with eliquis. Patient also started on metoprolol per cardiology 4. History of mitral valve endocarditis in 2014. Patient was transferred to [facility] at that time. Patient at this time denies following up with cardiology services. Cardiology services have been consulted 5. History of asthma 6. History of COPD 7. History of hyperlipidemia 8. History of essential hypertension 9. History of sleep apnea. Per patient's daughter patient noncompliant with CPAP machine at home 10. History of depression 11. Atrial fibrillation with rapid ventricular response. Patient was cardioverted 3 times and started on Cardizem. Cardiology services are following. At this time patient is in sinus rhythm. Cardizem drip has been DC' d due to hypotension. 2-D echo completed showing an EF of 60-65% with severe pulmonary hypertension. Patient started on eliquis for anticoagulation. She started on amiodarone per cardiology 12. Hypotension likely related to sepsis and A. fib with RVR. Patient currently maintained on Levaquin 5 for pressure support 13. Oliguric. Nephrology services are following. Patient did receive 1 time dose of IV Lasix and IV fluids. Urine output has improved. Lasix 20 mg daily has been added per nephrology. Urine has improved 14. Bilateral lower extremity cellulitis. Local wound culture with MRSA and Proteus patient currently on Rocephin and daptomycin. ID is following 15. Hyperkalemia. Potassium 6.1. potassium treated per nephrology services. Potassium 5.0. Lisinopril has been decreased per nephrology services DVT prophylaxis Eliquis. GI prophylaxis Protonix. Critical care, cardiology, nephrology and infectious disease following Physical therapy consulted. Social consulted for discharge planning patient will most likely require ECF placement upon discharge PT consulted. I performed an examination of the patient and discussed their management with the Nurse Practitioner. I have reviewed the Nurse Practitioner's notes and agree with the documented findings and plan of care
[2018-07-04 11:51] LABS: Glucose,Whole Blood 158 mg/dL (75-99)
[2018-07-04 11:51] LABS: Glucose,Whole Blood 145 mg/dL (75-99)
--- NOTE | 2018-07-04 12:12 | P.PN ---
Subjective Progress Note Date: 07/04/18 Morbidly obese 77-year-old female seen eval reexamined on fourth floor patient is in process of being transferred to [facility] data predominantly has been obtained from the chart, presents emergency department complaining of generalized weakness. Patient states she has needed 5 days she's lost her appetite. Patient states over the last 2 days she's got to the point where she can't stand on her own and she feels as though she could be unstable. Patient stated that this is the main reason she came in because of her generalized weakness. Patient denies any pain. Patient denies chest pain difficulty breathing or shortness of breath per patient denies abdominal pain patient denies any recent nausea vomiting diarrhea. Patient denies any recent fever chills or cough. Patient denies any lightheadedness or dizziness. Patient denies any headache patient denies numbness weakness. Patient states she's got chronic bilateral cellulitis and edema and she states that is unchanged. Patient denies any dysuria hematuria urinary frequency. Patient denies any injury or trauma. Patient does have past medical history of A. fib and flutter but the patient reports that she is not currently on anticoagulation. Additional medical history includes asthma, heart failure, COPD, diabetes mellitus, hyperlipidemia, hypertension, osteoporosis, pneumonia, skin disorder, sleep apnea and depression. Patient's urinary analysis positive for a UTI. Urine culture ordered. Initial white blood cell 21.3. Repeat this a.m. 10.6. Patient's lactic acid 1.1. EKG completed showing sinus tachycardia with premature atrial complexes. Chest x-ray completed showing clinical correlation recommended for right lower lobe infiltrate. Pneumonia or atelectasis could be considered lungs otherwise appear clear. Patient is having low-grade temps. Patient started on Rocephin. This time patient denies any nausea or vomiting. Patient denies chest pain or shortness breath. Denies any urinary burning or frequency. She has been noted to have extensive erythematous edema of both lower extremity especially on the left side consistent with cellulitis would recommend to add vancomycin as well I suspect elevated d-dimer is likely related to ongoing inflammatory process however would recommend to continue treat her with aggressive DVT prophylaxis noted that duplex ultrasound lower extremities pending 06/28/2018: Patient seen and examined in the intensive care unit with nursing staff at bedside. Patient is seen and covering for Dr. Piper. The patient was intubated overnight due to respiratory distress. Patient was unable to tolerate BiPAP and became confused. The patient had an acute on chronic hypoxic and hypercapnic respiratory failure. She is currently tolerating a sedation holiday. She does follow complex commands. The patient will remain on the ventilator today. We will attempt another sedation holiday and spontaneous breathing trial in the morning. She is oxygenating well. Her hypercapnia is improving. Cardiology is initiating amiodarone drip. Lovenox has been discontinued and L Aquinas has been started for atrial fibrillation. Lower extremity Dopplers and CT of the chest are negative for DVT and PE. 06/29/2018: Patient seen and examined in the ICU with nursing staff at bedside. The patient had a sedation holiday this morning. Weaning trial was attempted, however, patient failed due to tachycardia and hypertension. Patient was placed back on sedation. Patient on levophed 1 mcg/min. Suctioning pink, frothy sputum from ETT. 06/30/2018: Patient seen and examined in the intensive care unit. The patient is off of levophed. She did self extubate early this morning. She is currently on 5 L nasal cannula. Case is discussed with nephrology and IV fluids are KVO. Patient does have a cough which she states is nonproductive. 07/01/2018: Patient seen and examined in the intensive care unit with nursing staff at bedside. The nurse is trying to get a new IV answers are not currently working. The patient is 98% on room air. Apparently there was a discussion last night with the nurse regarding possible DO NOT RESUSCITATE CODE STATUS. This is discussed with the patient today. She states she only wants "gentle pressure." It is explained that there is no gentle CPR. The patient does not seem to fully understand. Recommend full discussion with family regarding CODE STATUS. 07/02/2018: Patient seen and examined in the ICU with nursing staff at bedside. Patient is sitting up in the chair. She is on 2L NC with O2 saturation 97%. She states she feels tired today. Urine output has been good. She has been hemodynamically stable. 07/03/2018: Patient seen and examined. Patient is on 2 L nasal cannula. She is sitting up in the chair. She states she feels really good today. She is asking for ice cream. 07/04/2018: Patient seen and examined. Patient is on 2 L nasal cannula. She is resting in bed. She states she feels good today. She did eat her full dinner last night and states that she did have a little bit of a stomachache after that. She denies any nausea, vomiting, abdominal pain today. She denies fevers and chills. The patient states she is getting stronger. She is able to lift her legs off the bed and she was previously unable to do that. She is also asking how she can better cope with her illness. She is talking about writing a journal and the option is given to meet with social work or spiritual care. The patient states 8 years ago she had a bad interaction with hospice social worker spiritual care she can't remember which one and would prefer not to meet with them. Objective - Vital Signs Vital signs: Vital Signs Temp 97.1 F L 07/03/18 04:00 Pulse 67 07/04/18 11:32 Resp 18 07/04/18 07:28 BP 140/67 07/03/18 14:00 Pulse Ox 94 L 07/03/18 06:00 Intake & Output 07/03/18 07/04/18 07/04/18 18:59 06:59 18:59 Intake Total 810 600 100 Output Total 2180 660 190 Balance -1370 -60 -90 Weight 113 kg 113 kg Intake: IV 410 600 100 Sodium Chloride 0.9% 1, 410 600 100 000 ml @ 50 mls/hr IV . Q20H [facility] Rx#:[id number] Intake, IV Titration 100 Amount cefTRIAXone 2 gm In 100 Sodium Chloride 0.9% 50 ml @ 100 mls/hr IVPB Q24HR [facility] Rx#:[id number] Oral 300 Output: Urine 2180 660 190 Other: Voiding Method Indwelling Catheter Indwelling Catheter Indwelling Catheter # Voids 2 # Bowel Movements 0 0 0 ABP, PAP, CO, CI - Last Documented Arterial Blood Pressure 159/69 - Exam Gen.: Patient is Alert and oriented, no acute distress Cardiovascular: Irregular rate and rhythm, S1/S2 Lungs: Diminished breath sounds at the bases Abdomen: Soft nontender nondistended positive bowel sounds Extremities: 2-3+ pitting edema with cellulitis and chronic venous stasis, stasis dermatitis - Labs CBC & Chem 7: 07/04/18 06:40 07/04/18 06:40 Labs: Abnormal Lab Results - Last 24 Hours (Table) 07/03/18 07/03/18 07/04/18 Range/Units 17:02 20:46 06:40 WBC 17.2 H (3.8-10.6) k/uL MCHC 30.7 L (31.0-37.0) g/dL Neutrophils # 15.7 H (1.3-7.7) k/uL Lymphocytes # 0.6 L (1.0-4.8) k/uL Chloride (98-107) mmol/L Carbon Dioxide (22-30) mmol/L BUN (7-17) mg/dL Glucose (74-99) mg/dL POC Glucose (mg/dL) 140 H 232 H (75-99) mg/dL ALT (9-52) U/L Total Protein (6.3-8.2) g/dL Albumin (3.5-5.0) g/dL 07/04/18 07/04/18 07/04/18 Range/Units 06:40 06:46 11:48 WBC (3.8-10.6) k/uL MCHC (31.0-37.0) g/dL Neutrophils # (1.3-7.7) k/uL Lymphocytes # (1.0-4.8) k/uL Chloride 95 L (98-107) mmol/L Carbon Dioxide 43 H* (22-30) mmol/L BUN 41 H (7-17) mg/dL Glucose 156 H (74-99) mg/dL POC Glucose (mg/dL) 145 H 158 H (75-99) mg/dL ALT 75 H (9-52) U/L Total Protein 5.3 L (6.3-8.2) g/dL Albumin 2.6 L (3.5-5.0) g/dL Assessment and Plan Assessment: Acute on chronic hypoxic and hypercapnic respiratory failure requiring mechanical ventilation, resolved Severe sepsis associated with multifactorial processes including right lower lobe pneumonia as well as extensive cellulitis of the lower extremity (MRSA), improving Respiratory acidosis, resolved Severe pulmonary hypertension Right lower lobe pneumonia Pulmonary vascular congestion and pulmonary edema Extensive cellulitis of bilateral lower extremity more so on the left side compared right side Morbid obesity Elevated d-dimer related to ongoing chronic inflammatory process given that spiral computed tomography scan of the chest negative for pulmonary embolism, dopplers negative for DVT UTI Paroxysmal atrial fibrillation, s/p cardioversion Chronic persistent asthma severe COPD Hypertension hypertensive cardiovascular disease Obstructive sleep apnea/Obesity hypoventilation syndrome Moderate PCM Plan: O2 to maintain saturation > or = 90% Bronchodilators Cardiology recommendations Steroids taper ABX per ID Eliquis for Afib, no evidence of PE/DVT SCDs and Protonix SSC insulin for BS control Wound care PT and OT Patient seen and examined covering for Dr. Piper Stop Solumedrol and start prednisone taper
[2018-07-04 17:25] LABS: Glucose,Whole Blood 174 mg/dL (75-99)
[2018-07-04] MEDS: DAPTOmycin 500 MG in SODIUM CHLORIDE 0.9% 50 ML IVPB SCH (18:07)
--- NOTE | 2018-07-04 18:19 | PN ---
PROGRESS NOTE Patient is seen for followup for acute kidney injury and hyperkalemia. Her renal function has improved. However, patient developed hyperkalemia yesterday. The patient's repeat potassium has improved. She is maintained on loop diuretics. She continues to have good urine output. The patient was also started on JOHN inhibitors recently. I decreased the dose yesterday. She was maintained on oral Lasix. Urine output had decreased to about 20-15 mL an hour but then picked up. Currently, patient is awake, comfortable. She denies any significant complaints. Blood pressure this morning was 133/70. Patient is afebrile. Heart rate 70 per minute. Examination of the heart S1, S2. Examination lungs bilateral breath sounds are heard. Decreased breath sounds at bases. Abdomen is soft, nontender, obese. Examination lower extremities shows chronic skin changes, cellulitis. Bilateral extremities are wrapped. Edema has improved significantly. PHYSICAL THERAPY TECHNICIAN exam is grossly intact. LAB: Show sodium 139, potassium 5.0, BUN 41, serum creatinine 0.85, CO2 is 43. ASSESSMENT: 1. Acute kidney injury, mainly oliguria, currently improved. Urine output is at about 50 mL an hour. The serum creatinine is staying at about 0.8 mg/dL. Patient did developed metabolic alkalosis. I will hold off on the Lasix for now. We will repeat labs in a.m. Patient is also maintained on a small dose of JOHN inhibitors, which was recently started. We need to monitor the electrolytes closely as she did develop hyperkalemia 2 days ago. 2. Hyperkalemia associated with oliguria, recent initiation of JOHN inhibitors. Blood sugars were also staying high at that time, which contributed to the hyperkalemia. I decreased the dose of lisinopril yesterday. Her potassium is at borderline. If it is further elevated tomorrow, we may need to discontinue the lisinopril. At this time the Lasix is also being held. Therefore, she may have a higher potassium tomorrow. We need to continue to control blood sugars. 3. Metabolic alkalosis secondary to recent diuresis. 4. Right leg cellulitis with wound culture growing Proteus and MRSA. 5. Morbid obesity. 6. Sepsis. 7. Atrial fibrillation status post cardioversion. 8. Previous history of mitral valve endocarditis. PLAN: Hold Lasix, monitor potassium. Repeat labs in a.m. Hold lisinopril if potassium is further elevated tomorrow. MMODL / IJN: [id number] /
[2018-07-04 21:10] LABS: Glucose,Whole Blood 186 mg/dL (75-99)
[2018-07-05 02:24] LABS: Glucose,Whole Blood 127 mg/dL (75-99)
[2018-07-05 05:31] LABS: Glucose,Whole Blood 107 mg/dL (75-99)
--- NOTE | 2018-07-05 05:46 | PN ---
PROGRESS NOTE DATE OF SERVICE: 07/04/2018. REASON FOR FOLLOW UP: Bilateral lower extremity cellulitis. INTERVAL HISTORY: The patient is afebrile. The patient has been breathing more comfortably. She has occasional cough. No chest pain. No abdominal pain or any diarrhea. EXAMINATION: Pulse of 70. No other vital signs are documented. General description is an elderly female lying in bed in no distress. Respiratory system: Unlabored breathing. Clear to auscultation anteriorly. Heart S1, S2. Regular rate and rhythm. Abdomen soft. No tenderness. Legs are currently wrapped up. No obvious drainage on the dressing. LABS: White count up to 17.2 today with BUN of 41, creatinine 0.85. DIAGNOSTIC IMPRESSION AND PLAN: Patient with bilateral lower extremity cellulitis, superficial wound culture with MRSA and Proteus mirabilis for which the patient has been maintained on daptomycin and Rocephin. She noticed to have significant jump in white count. Could have been related to the steroids the patient received on the last 2 days and the patient has been switched to oral prednisone. We will monitor her white count closely as well as clinical condition and continue supportive care. MMODL / IJN: [id number] /
[2018-07-05] MEDS: INSULIN ASPART (NovoLOG) 100 UNIT/ML VIAL SQ SCH ×4 (05:50→21:57)
[2018-07-05 06:38] LABS: Basophils # (A) 0.1 k/uL (0-0.2); Basophils % (A) 0 %; Eosinophils % (A) 0 %; HCT 45.3 % (34.0-46.0); HGB 13.5 gm/dL (11.4-16.0); Hypochromasia Slight; Lymphocytes # (A) 1.3 k/uL (1.0-4.8); Lymphocytes % (A) 7 %; MCH 27.9 pg (25.0-35.0); MCHC 29.8 g/dL (31.0-37.0); MCV 93.6 fL (80.0-100.0); Mean Platelet Volume 7.2; Monocytes # (A) 1.1 k/uL (0-1.0); Monocytes % (A) 6 %; Neutrophils # (A) 14.3 k/uL (1.3-7.7); Neutrophils % (A) 85 %; Platelet Count 252 k/uL (150-450); RBC 4.84 m/uL (3.80-5.40); RDW 14.1 % (11.5-15.5); WBC 16.9 k/uL (3.8-10.6)
[2018-07-05 06:54] LABS: Albumin 2.4 g/dL (3.5-5.0); Calcium 8.3 mg/dL (8.4-10.2); Potassium 4.3 mmol/L (3.5-5.1); Total Bilirubin 0.5 mg/dL (0.2-1.3)
--- NOTE | 2018-07-05 08:07 | P.PN ---
Subjective Progress Note Date: 07/05/18 Principal diagnosis: This is a 77-year-old obese diabetic who is seen because of acute kidney injury secondary to cellulitis pneumonia as well as hyperkalemia secondary to Chau inhibitors. She also had metabolic alkalosis secondary to diuresis. He was on ventilator and had atrial fibrillation that was DC cardioverted. Currently complaining of fatigue and poor appetite but slowly improving. Denies any chest pain fever chills nausea vomiting diarrhea abdominal pain. No fever. In the hospital her creatinine has improved Potassium is improved, and her bicarb is improved. Her urine output remains excellent. She is currently on nasal cannula Objective - Vital Signs Vital signs: Vital Signs Temp 98.2 F 07/05/18 04:05 Pulse 63 07/05/18 04:05 Resp 17 07/05/18 04:05 BP 96/52 07/05/18 04:05 Pulse Ox 94 L 07/05/18 04:05 Intake & Output 07/04/18 07/05/18 07/05/18 18:59 06:59 18:59 Intake Total 990 80 Output Total 835 215 Balance 155 -135 Weight 113 kg 122.5 kg Intake: IV 100 Sodium Chloride 0.9% 1, 100 000 ml @ 50 mls/hr IV . Q20H [facility] Rx#:[id number] Intake, IV Titration 290 80 Amount DAPTOmycin 500 mg In 50 Sodium Chloride 0.9% 50 ml @ 100 mls/hr IVPB Q24HR@1800 [facility] Rx#: [id number] Sodium Chloride 0.9% 500 190 80 ml 500 ml @ 20 mls/hr IV .Q24H [facility] Rx#:[id number] cefTRIAXone 2 gm In 50 Sodium Chloride 0.9% 50 ml @ 100 mls/hr IVPB Q24HR [facility] Rx#:[id number] Oral 600 Output: Urine 835 215 Other: Voiding Method Indwelling Catheter Indwelling Catheter # Bowel Movements 0 0 ABP, PAP, CO, CI - Last Documented Arterial Blood Pressure 159/69 On examination she is awake alert oriented comfortable on nasal cannula oxygen. HEENT exam no JVP neck is supple no facial asymmetry Eyes are unremarkable Lungs are clear to auscultation fair air entry bilaterally Heart sounds are unremarkable with normal sinus rhythm. Abdomen is soft nontender obese Extremity exam was trace edema Neurologically awake alert oriented. Her urine output is 2840 intake 1410 - Labs CBC & Chem 7: 02/23/19 05:48 07/05/18 05:48 Labs: Abnormal Lab Results - Last 24 Hours (Table) 07/04/18 07/04/18 07/04/18 Range/Units 06:46 11:48 17:21 WBC (3.8-10.6) k/uL MCHC (31.0-37.0) g/dL Neutrophils # (1.3-7.7) k/uL Monocytes # (0-1.0) k/uL Chloride (98-107) mmol/L Carbon Dioxide (22-30) mmol/L BUN (7-17) mg/dL POC Glucose (mg/dL) 145 H 158 H 174 H (75-99) mg/dL Calcium (8.4-10.2) mg/dL ALT (9-52) U/L Total Protein (6.3-8.2) g/dL Albumin (3.5-5.0) g/dL 07/04/18 07/05/18 07/05/18 Range/Units 21:08 02:23 05:30 WBC (3.8-10.6) k/uL MCHC (31.0-37.0) g/dL Neutrophils # (1.3-7.7) k/uL Monocytes # (0-1.0) k/uL Chloride (98-107) mmol/L Carbon Dioxide (22-30) mmol/L BUN (7-17) mg/dL POC Glucose (mg/dL) 186 H 127 H 107 H (75-99) mg/dL Calcium (8.4-10.2) mg/dL ALT (9-52) U/L Total Protein (6.3-8.2) g/dL Albumin (3.5-5.0) g/dL 07/05/18 07/05/18 Range/Units 05:48 05:48 WBC 16.9 H (3.8-10.6) k/uL MCHC 29.8 L (31.0-37.0) g/dL Neutrophils # 14.3 H (1.3-7.7) k/uL Monocytes # 1.1 H (0-1.0) k/uL Chloride 97 L (98-107) mmol/L Carbon Dioxide 38 H (22-30) mmol/L BUN 39 H (7-17) mg/dL POC Glucose (mg/dL) (75-99) mg/dL Calcium 8.3 L (8.4-10.2) mg/dL ALT 54 H (9-52) U/L Total Protein 5.0 L (6.3-8.2) g/dL Albumin 2.4 L (3.5-5.0) g/dL Assessment and Plan Assessment: Impression 1. Hyperkalemia secondary to Chau inhibitors and hyperglycemia improved potassium is down from peak of 6.1 on 07/03/2018 to 4.3 this morning. 2. Metabolic alkalosis secondary to diuretics, with a peak bicarb of 43 improved to 38 off of diuretics 3. Congestive heart failure improved 4. A. fib fibrillation converted to normal sinus rhythm. Recommendation. 1. Maintain current medications without any diuretics as she is able to diurese well without any diuretics. 2. Monitor labs for 1 more day
[2018-07-05] MEDS: IPRATROPIUM-ALBUTEROL 3 ML NEB INHALATION SCH ×4 (08:51→19:28)
[2018-07-05] MEDS ORDERED: FUROSEMIDE 10 MG/ML 4 ML VIAL IV STA (09:19)
--- NOTE | 2018-07-05 09:19 | XR ---
EXAMINATION TYPE: XR chest 1V portable DATE OF EXAM: 07/05/2018 COMPARISON: 07/03/2018 HISTORY: Shortness of breath TECHNIQUE: Single frontal view of the chest is obtained. FINDINGS: Heart remains borderline enlarged. Atherosclerotic arch calcifications. Continued hazy bib asilar opacities, left greater than right now, slightly improved on the right in the interval. IMPRESSION: Persistent bilateral consolidation small. Correlate for pneumonia otherwise consider mil d CHF.
[2018-07-05 09:34] LABS: ABG Base Excess 17.9 mmol/L; ABG Oxygen Saturation 92.9 % (94-97); ABG PCO2 59 mmHg (35-45); ABG PH 7.46 (7.35-7.45); ABG PO2 60 mmHg (83-108); ABG TCO2 44 mmol/L (19-24)
[2018-07-05 09:39] LABS: ABG HCO3 42 mmol/L (21-25)
[2018-07-05] MEDS: APIXABAN 5 MG TAB PO SCH ×2 (10:02→21:57)
[2018-07-05] MEDS: METOPROLOL TARTRATE 25 MG TAB PO SCH ×2 (10:02→21:57)
[2018-07-05] MEDS: LISINOPRIL 5 MG TAB PO SCH (10:02)
[2018-07-05] MEDS: AMIODARONE 200 MG TAB PO SCH ×3 (10:03→21:57)
[2018-07-05] MEDS: PANTOPRAZOLE 40 MG TABLET PO SCH (10:03)
[2018-07-05] MEDS: predniSONE 20 MG TAB PO SCH (10:03)
[2018-07-05 11:02] LABS: Glucose,Whole Blood 129 mg/dL (75-99)
--- NOTE | 2018-07-05 12:38 | PN ---
PROGRESS NOTE DATE OF SERVICE: 07/05/2018 She is slightly more short of breath than usual. ABG has been ordered by Nephrology. She does not complain of any chest pain. On physical examination, blood pressure 127/69, respiratory rate of 20, a pulse rate of 68, temperature 98.3, O2 saturation on 3 L by nasal cannula is 92%. HEENT is unremarkable. Chest reveals prolonged expiration. Cardiovascular system reveals an S1, S2. Abdomen is soft. There is 1+ pedal edema. White count of 16.9, hemoglobin 13.5. ABG showed a pH of 7.46, pCO2 of 59, PO2 of 60, bicarb 42, O2 SAT 92.9% on 32% FiO2. Sodium is 140, potassium 4.3, chloride 97, bicarb 30, BUN 39, creatinine 0.79. Chest x-ray was done which showed evidence of consolidative changes in the bases with pleural effusion. IMPRESSION: 1. Congestive heart failure with renal insufficiency. 2. Pneumonia. 3. Atrial fibrillation, status post conversion. 4. Morbid obesity. 5. Pulmonary hypertension. 6. Recent sepsis with right lower lobe pneumonia. 7. Acute on chronic respiratory failure that recently required mechanical ventilation. Increase her activity level. Continue on the current medications that are reviewed. Keep on supplemental oxygen. Her prognosis at this time is fair. MMODL / IJN: [id number] /
--- NOTE | 2018-07-05 13:29 | PN ---
PROGRESS NOTE This patient was admitted with generalized weakness. He has been treated for cellulitis and urinary tract infection and sepsis. Patient required intermittent Lasix; however, for the last couple of days, the Lasix was discontinued. She complained of shortness of breath. The heart rate is 68 per minute. Patient is afebrile. Oxygen saturation is 92%. The blood pressure is 127/69 mmHg. First and second heart sounds are normal. There is evidence of bilateral diminished air entry with bronchial breath sounds on the right side. Chest x-ray shows elevated right hemidiaphragm and left-sided pleural effusion. IMPRESSION: Shortness of breath, probably fluid overload and congestive cardiac failure. We will give patient 1 dose of IV Lasix. Ultrasound of the chest will be obtained to rule out any significant pleural effusion. MMODL / IJN: [id number] /
--- NOTE | 2018-07-05 14:03 | P.PN ---
Subjective Progress Note Date: 07/05/18 This is a 77-year-old female patient of Dr. Palm. Patient patient presents to the emergency room with complaints of increased weakness and poor appetite for 5 days. Patient is a poor historian but does report that she had increased weakness with no appetite that progressively got worse over the past 2 days. Patient does have past medical history of A. fib and flutter but the patient reports that she is not currently on anticoagulation. Additional medical history includes asthma, heart failure, COPD, diabetes mellitus, hyperlipidemia , hypertension, osteoporosis, pneumonia, skin disorder, sleep apnea and depression. Patient's urinary analysis positive for a UTI. Urine culture ordered. Initial white blood cell 21.3. Repeat this a.m. 10.6. Patient's lactic acid 1.1. EKG completed showing sinus tachycardia with premature atrial complexes. Chest x-ray completed showing clinical correlation recommended for right lower lobe infiltrate. Pneumonia or atelectasis could be considered lungs otherwise appear clear. Patient is having low-grade temps. Patient started on Rocephin. This time patient denies any nausea or vomiting. Patient denies chest pain or shortness breath. Denies any urinary burning or frequency. On 06/28/2018 patient was transferred to [facility] last night. During the night patient was found to have increased lethargy, hypotension and A. fib with RVR. Patient was 17 and transferred to the intensive care unit where she was intubated and started on levothyroxine and cardioverted. Patient is currently resting on ventilation with sedation. Family is at bedside. Per patient's daughter Priscilla patient has been noncompliant with her medication and CPAP machine at home. Cardiology, critical care infectious disease is following. On 06/30/2018 patient self extubated this AM. At this time patient is maintained on 3 L nasal cannula. Discussed case with Dr. Watt is with critical care. This time patient is resting comfortably in bed. Patient denies any chest pain or shortness of breath. Patient denies nausea vomiting or diarrhea. Denies any urinary burning or frequency. On 07/01/2018 patient is currently on room air much more alert. Left leg culture positive for MRSA. Infectious disease is following. Patient remains on IV antibiotics. This time patient denies chest pain or shortness breath. Patient denies nausea vomiting or diarrhea. Patient denies any urinary burning or frequency. On 07/02/2018 patient is alert and oriented currently sitting up in chair. Patient states she feels much improved. This time patient denies chest pain or shortness of breath. Patient denies nausea vomiting or diarrhea. Patient denies any urinary burning or frequency. Patient does report that she is significantly weak. Persistent cystic and out of bed. Physical therapy has been consulted. Will consult social media manager ECF discharge planning On 07/03/2018 patient is alert and oriented currently resting in bed. Patient daughter at bedside. At this time patient denies chest pain or shortness breath. Patient denies nausea vomiting or diarrhea. Patient denies any urinary burning or reconsider. Patient had elevated potassium at 6.1. Potassium level was treated per nephrology services. Will repeat potassium level at noon. Patient's heart rate is bradycardic in the 50s. The patient also started on Metroprolol yesterday per cardiology On 07/04/2018 patient is alert and oriented sitting up in bed. Potassium currently 5.0. Lisinopril has been decreased per nephrology services. This time patient denies chest pain or shortness breath. Patient denies nausea vomiting or diarrhea. Patient denies any urinary burning or frequency. Patient remains on Rocephin and daptomycin IV antibiotics. On 07/05/2018 Patient is alert and oriented in no distress had episode of shortness of breath this morning improved with updraft treatment. Patient denies any chest pain or shortness of breath. Patient denies nausea vomiting or diarrhea. Denies any urinary burning or frequency. Objective - Vital Signs Vital signs: Vital Signs Temp 98.3 F 07/05/18 08:00 Pulse 68 07/05/18 12:04 Resp 28 H 07/05/18 08:00 BP 127/69 07/05/18 08:00 Pulse Ox 92 L 07/05/18 08:00 Intake & Output 07/04/18 07/05/18 07/05/18 18:59 06:59 18:59 Intake Total 990 80 Output Total 835 215 Balance 155 -135 Weight 113 kg 122.5 kg Intake: IV 100 Sodium Chloride 0.9% 1, 100 000 ml @ 50 mls/hr IV . Q20H [facility] Rx#:[id number] Intake, IV Titration 290 80 Amount DAPTOmycin 500 mg In 50 Sodium Chloride 0.9% 50 ml @ 100 mls/hr IVPB Q24HR@1800 [facility] Rx#: [id number] Sodium Chloride 0.9% 500 190 80 ml 500 ml @ 20 mls/hr IV .Q24H [facility] Rx#:[id number] cefTRIAXone 2 gm In 50 Sodium Chloride 0.9% 50 ml @ 100 mls/hr IVPB Q24HR [facility] Rx#:[id number] Oral 600 Output: Urine 835 215 Other: Voiding Method Indwelling Catheter Indwelling Catheter Indwelling Catheter # Bowel Movements 0 0 ABP, PAP, CO, CI - Last Documented Arterial Blood Pressure 159/69 - Exam Patient is alert and oriented in nodistress Head normocephalic and atraumatic Neck supple no JVD no goiter Lungs few scattered rhonchi no wheezing Heart regular rate and rhythm S1-S2, no rub or gallop Abdomen is soft nontender nondistended positive bowel sounds no hepatosplenomegaly Extremities no edema o cyanosis or clubbing - Labs CBC & Chem 7: 07/05/18 05:48 07/05/18 05:48 Labs: Abnormal Lab Results - Last 24 Hours (Table) 07/04/18 07/04/18 07/05/18 Range/Units 17:21 21:08 02:23 WBC (3.8-10.6) k/uL MCHC (31.0-37.0) g/dL Neutrophils # (1.3-7.7) k/uL Monocytes # (0-1.0) k/uL ABG pH (7.35-7.45) ABG pCO2 (35-45) mmHg ABG pO2 (83-108) mmHg ABG HCO3 (21-25) mmol/L ABG Total CO2 (19-24) mmol/L ABG O2 Saturation (94-97) % Chloride (98-107) mmol/L Carbon Dioxide (22-30) mmol/L BUN (7-17) mg/dL POC Glucose (mg/dL) 174 H 186 H 127 H (75-99) mg/dL Calcium (8.4-10.2) mg/dL ALT (9-52) U/L Total Protein (6.3-8.2) g/dL Albumin (3.5-5.0) g/dL 07/05/18 07/05/18 07/05/18 Range/Units 05:30 05:48 05:48 WBC 16.9 H (3.8-10.6) k/uL MCHC 29.8 L (31.0-37.0) g/dL Neutrophils # 14.3 H (1.3-7.7) k/uL Monocytes # 1.1 H (0-1.0) k/uL ABG pH (7.35-7.45) ABG pCO2 (35-45) mmHg ABG pO2 (83-108) mmHg ABG HCO3 (21-25) mmol/L ABG Total CO2 (19-24) mmol/L ABG O2 Saturation (94-97) % Chloride 97 L (98-107) mmol/L Carbon Dioxide 38 H (22-30) mmol/L BUN 39 H (7-17) mg/dL POC Glucose (mg/dL) 107 H (75-99) mg/dL Calcium 8.3 L (8.4-10.2) mg/dL ALT 54 H (9-52) U/L Total Protein 5.0 L (6.3-8.2) g/dL Albumin 2.4 L (3.5-5.0) g/dL 07/05/18 07/05/18 Range/Units 09:08 11:00 WBC (3.8-10.6) k/uL MCHC (31.0-37.0) g/dL Neutrophils # (1.3-7.7) k/uL Monocytes # (0-1.0) k/uL ABG pH 7.46 H (7.35-7.45) ABG pCO2 59 H (35-45) mmHg ABG pO2 60 L (83-108) mmHg ABG HCO3 42 H* (21-25) mmol/L ABG Total CO2 44 H (19-24) mmol/L ABG O2 Saturation 92.9 L (94-97) % Chloride (98-107) mmol/L Carbon Dioxide (22-30) mmol/L BUN (7-17) mg/dL POC Glucose (mg/dL) 129 H (75-99) mg/dL Calcium (8.4-10.2) mg/dL ALT (9-52) U/L Total Protein (6.3-8.2) g/dL Albumin (3.5-5.0) g/dL Assessment and Plan Plan: 1. Acute hypoxic per respiratory failure. CTA negative for PE. Patient off mechanical ventilation at this time. Dr. Piper is her regular swimming pool plasterer helper, Dr. Garrett is covering for this weekend. Patient was off sedation this morning however she did not tolerate she developed tachycardia and hypertension she will be restarted on sedation at this time. On 06/30/2018 patient did self extubate. She currently on room air 2. Severe sepsis associated with multifactorial process including pneumonia, UTI and cellulitis. Infectious disease is following. Patient currently on daptomycin and Rocephin. Right lower extremity wound culture positive for presumptive MRSA and gram-negative bacilli currently patient is on contact isolation. White blood cell that increased to 20.8. Patient is on steroids at this time. IV antibiotics with daptomycin and Rocephin. Infectious disease is following 3. History of paroxysmal atrial fibrillation. Patient denies being on anticoagulation. Cardiology services have been consulted. D-dimer has been ordered. Per cardiology patient is now on amiodarone plus anticoagulation with eliquis. Patient also started on metoprolol per cardiology 4. History of mitral valve endocarditis in 2014. Patient was transferred to [facility] at that time. Patient at this time denies following up with cardiology services. Cardiology services have been consulted 5. History of asthma 6. History of COPD 7. History of hyperlipidemia 8. History of essential hypertension 9. History of sleep apnea. Per patient's daughter patient noncompliant with CPAP machine at home 10. History of depression 11. Atrial fibrillation with rapid ventricular response. Patient was cardioverted 3 times and started on Cardizem. Cardiology services are following. At this time patient is in sinus rhythm. Cardizem drip has been DC' d due to hypotension. 2-D echo completed showing an EF of 60-65% with severe pulmonary hypertension. Patient started on eliquis for anticoagulation. She started on amiodarone per cardiology 12. Hypotension likely related to sepsis and A. fib with RVR. Patient currently maintained on Levaquin 5 for pressure support 13. Oliguric. Nephrology services are following. Patient did receive 1 time dose of IV Lasix and IV fluids. Urine output has improved. Lasix 20 mg daily has been added per nephrology. Urine has improved 14. Bilateral lower extremity cellulitis. Local wound culture with MRSA and Proteus patient currently on Rocephin and daptomycin. ID is following 15. Hyperkalemia. Potassium 6.1. potassium treated per nephrology services. Potassium 5.0. Lisinopril has been decreased per nephrology services DVT prophylaxis Eliquis. GI prophylaxis Protonix. Critical care, cardiology, nephrology and infectious disease following Physical therapy consulted. Social consulted for discharge planning patient will most likely require ECF placement upon discharge PT consulted.
[2018-07-05 17:13] LABS: Glucose,Whole Blood 190 mg/dL (75-99)
[2018-07-05] MEDS: DAPTOmycin 500 MG in SODIUM CHLORIDE 0.9% 50 ML IVPB SCH (17:16)
[2018-07-05 21:17] LABS: Glucose,Whole Blood 210 mg/dL (75-99)
--- NOTE | 2018-07-06 05:11 | PN ---
PROGRESS NOTE DATE OF SERVICE: 07/05/2018. REASON FOR FOLLOWUP: Lower extremity cellulitis. INTERVAL HISTORY: The patient is currently afebrile. The patient is breathing comfortably. Patient denies having any chest pain or cough. No abdominal pain. in the leg area. PHYSICAL EXAMINATION: Blood pressure 122/64 with a pulse of 72, temperature 98.4. She is 92% on 3 L nasal cannula. General description is an elderly female lying in bed in no distress. Respiratory system: Unlabored breathing. Clear to auscultation anteriorly. Heart S1, S2 regular rate and rhythm. Abdomen soft. No tenderness. LABS: Hemoglobin 13.1, white count 16.9, BUN of 39, creatinine 0.78. Sputum has been negative. DIAGNOSTIC IMPRESSION AND PLAN: Patient with bilateral lower extremity cellulitis. Local cultures with Proteus and MRSA. Patient currently covered with Rocephin and daptomycin. She was noted to have slightly elevated white count possibly attributed to steroids, white count showing a downward trend. No worsening clinical condition. Continue supportive care. MMODL / IJN: [id number] /
[2018-07-06] MEDS: INSULIN ASPART (NovoLOG) 100 UNIT/ML VIAL SQ SCH ×4 (06:29→23:30)
[2018-07-06 06:30] LABS: Basophils % (A) 0 %; Eosinophils # (A) 0.1 k/uL (0-0.7); Eosinophils % (A) 1 %; HCT 42.2 % (34.0-46.0); HGB 13.3 gm/dL (11.4-16.0); Hypochromasia Slight; Lymphocytes # (A) 1.2 k/uL (1.0-4.8); Lymphocytes % (A) 8 %; MCH 28.7 pg (25.0-35.0); MCHC 31.6 g/dL (31.0-37.0); MCV 90.9 fL (80.0-100.0); Mean Platelet Volume 6.5; Monocytes # (A) 1.1 k/uL (0-1.0); Monocytes % (A) 7 %; Neutrophils # (A) 13.3 k/uL (1.3-7.7); Neutrophils % (A) 84 %; Platelet Count 262 k/uL (150-450); RBC 4.64 m/uL (3.80-5.40); RDW 13.8 % (11.5-15.5); WBC 15.9 k/uL (3.8-10.6)
[2018-07-06] MEDS: SODIUM CHLORIDE 0.9% 500 ML 500 ML IV SCH ×2 (06:30→21:03)
[2018-07-06 06:48] LABS: Glucose,Whole Blood 127 mg/dL (75-99)
[2018-07-06 06:56] LABS: ALT 39 U/L (9-52); AST 20 U/L (14-36); Albumin 2.3 g/dL (3.5-5.0); Alkaline Phosphatase 53 U/L (38-126); Anion Gap 4 mmol/L; Blood Urea Nitrogen 34 mg/dL (7-17); Calcium 8.1 mg/dL (8.4-10.2); Carbon Dioxide 40 mmol/L (22-30); Chloride 94 mmol/L (98-107); Glucose 139 mg/dL (74-99); Potassium 3.9 mmol/L (3.5-5.1); Sodium 138 mmol/L (137-145); Total Bilirubin 0.4 mg/dL (0.2-1.3); Total Protein 4.9 g/dL (6.3-8.2)
[2018-07-06] MEDS: IPRATROPIUM-ALBUTEROL 3 ML NEB INHALATION SCH ×4 (08:00→21:27)
[2018-07-06] MEDS ORDERED: DOCUSATE 100 MG CAP PO PRN (08:21)
[2018-07-06] MEDS ORDERED: LACTULOSE 20 GM/30 ML CUP PO ONE ×2 (08:22→09:28)
--- NOTE | 2018-07-06 08:29 | P.PN ---
Subjective Progress Note Date: 07/06/18 Principal diagnosis: This is a 77-year-old obese diabetic who is seen because of acute kidney injury secondary to cellulitis of both legs, pneumonia as well as hyperkalemia secondary to Chau inhibitors. She also had metabolic alkalosis secondary to diuresis. Shee was on ventilator, off the vent currently on 3 lit, and had atrial fibrillation that was DC cardioverted, in NSR. Currently complaining of fatigue and poor appetite but slowly improving. Denies any chest pain fever chills nausea vomiting diarrhea abdominal pain. No fever. Has been constipated since before admission. In the hospital her creatinine has improved Potassium is improved, Has fol;ey cath that can be DCD Objective - Vital Signs Vital signs: Vital Signs Temp 98.5 F 07/06/18 04:00 Pulse 72 07/06/18 08:00 Resp 19 07/06/18 04:00 BP 131/72 07/06/18 04:00 Pulse Ox 94 L 07/06/18 04:00 Intake & Output 07/05/18 07/06/18 07/06/18 18:59 06:59 18:59 Weight 122 kg Other: Voiding Method Indwelling Catheter Indwelling Catheter # Voids 1 # Bowel Movements 0 ABP, PAP, CO, CI - Last Documented Arterial Blood Pressure 159/69 On exam she is awake alert oriented comfortable on 3 L of nasal cannula. HEENT exam no JVP neck is supple no facial asymmetry Lungs are clear to auscultation with fair air entry bilaterally although the chest shows possible bilateral subpulmonic effusion. Heart sounds are unremarkable for any murmur rub gallop seems to be normal sinus rhythm Abdomen is soft nontender nondistended Extremity exam was bilateral Chau wraps. They're essentially mild edema of the feet. None in the high or side of the abdomen Neurologically awake alert oriented but profoundly weak - Labs CBC & Chem 7: 07/06/18 05:59 07/06/18 05:59 Labs: Abnormal Lab Results - Last 24 Hours (Table) 07/05/18 07/05/18 07/05/18 Range/Units 09:08 11:00 17:12 WBC (3.8-10.6) k/uL Neutrophils # (1.3-7.7) k/uL Monocytes # (0-1.0) k/uL ABG pH 7.46 H (7.35-7.45) ABG pCO2 59 H (35-45) mmHg ABG pO2 60 L (83-108) mmHg ABG HCO3 42 H* (21-25) mmol/L ABG Total CO2 44 H (19-24) mmol/L ABG O2 Saturation 92.9 L (94-97) % Chloride (98-107) mmol/L Carbon Dioxide (22-30) mmol/L BUN (7-17) mg/dL Glucose (74-99) mg/dL POC Glucose (mg/dL) 129 H 190 H (75-99) mg/dL Calcium (8.4-10.2) mg/dL Total Protein (6.3-8.2) g/dL Albumin (3.5-5.0) g/dL 07/05/18 07/06/18 07/06/18 Range/Units 21:07 05:59 05:59 WBC 15.9 H (3.8-10.6) k/uL Neutrophils # 13.3 H (1.3-7.7) k/uL Monocytes # 1.1 H (0-1.0) k/uL ABG pH (7.35-7.45) ABG pCO2 (35-45) mmHg ABG pO2 (83-108) mmHg ABG HCO3 (21-25) mmol/L ABG Total CO2 (19-24) mmol/L ABG O2 Saturation (94-97) % Chloride 94 L (98-107) mmol/L Carbon Dioxide 40 H (22-30) mmol/L BUN 34 H (7-17) mg/dL Glucose 139 H (74-99) mg/dL POC Glucose (mg/dL) 210 H (75-99) mg/dL Calcium 8.1 L (8.4-10.2) mg/dL Total Protein 4.9 L (6.3-8.2) g/dL Albumin 2.3 L (3.5-5.0) g/dL 07/06/18 Range/Units 06:29 WBC (3.8-10.6) k/uL Neutrophils # (1.3-7.7) k/uL Monocytes # (0-1.0) k/uL ABG pH (7.35-7.45) ABG pCO2 (35-45) mmHg ABG pO2 (83-108) mmHg ABG HCO3 (21-25) mmol/L ABG Total CO2 (19-24) mmol/L ABG O2 Saturation (94-97) % Chloride (98-107) mmol/L Carbon Dioxide (22-30) mmol/L BUN (7-17) mg/dL Glucose (74-99) mg/dL POC Glucose (mg/dL) 127 H (75-99) mg/dL Calcium (8.4-10.2) mg/dL Total Protein (6.3-8.2) g/dL Albumin (3.5-5.0) g/dL Assessment and Plan Assessment: Impression 1. Hyperkalemia secondary to Chau inhibitors and hyperglycemia improved potassium is down from peak of 6.1 on 07/03/2018 to 3.9 this morning. 2. Metabolic alkalosis secondary to diuretics, with a peak bicarb of 43 improved to 38 off of diuretics, went up to 40 this morning. Part of this may be from the steroids she is on 60 mg of prednisone, she was also given 1 dose of Lasix yesterday 40 mg IV 3. Congestive heart failure improved 4. A. fib fibrillation converted to normal sinus rhythm. 5. Bilateral subpulmonic effusion possibly, ultrasound of the chest been has performed waiting for the results Recommendation. 1. Maintain current medications without any diuretics as she is able to diurese well without any diuretics. 2. Monitor labs 3. Will treat with Diamox if necessary if bicarb continues to go
[2018-07-06] MEDS: predniSONE 20 MG TAB PO SCH (09:22)
[2018-07-06] MEDS: AMIODARONE 200 MG TAB PO SCH ×3 (09:22→23:29)
[2018-07-06] MEDS: APIXABAN 5 MG TAB PO SCH ×2 (09:22→23:30)
[2018-07-06] MEDS: PANTOPRAZOLE 40 MG TABLET PO SCH (09:22)
[2018-07-06] MEDS: LISINOPRIL 5 MG TAB PO SCH (09:22)
[2018-07-06] MEDS: METOPROLOL TARTRATE 25 MG TAB PO SCH ×2 (09:22→23:29)
--- NOTE | 2018-07-06 09:36 | P.PN ---
Subjective Progress Note Date: 07/06/18 This is a 77-year-old female patient of Dr. Palm. Patient patient presents to the emergency room with complaints of increased weakness and poor appetite for 5 days. Patient is a poor historian but does report that she had increased weakness with no appetite that progressively got worse over the past 2 days. Patient does have past medical history of A. fib and flutter but the patient reports that she is not currently on anticoagulation. Additional medical history includes asthma, heart failure, COPD, diabetes mellitus, hyperlipidemia , hypertension, osteoporosis, pneumonia, skin disorder, sleep apnea and depression. Patient's urinary analysis positive for a UTI. Urine culture ordered. Initial white blood cell 21.3. Repeat this a.m. 10.6. Patient's lactic acid 1.1. EKG completed showing sinus tachycardia with premature atrial complexes. Chest x-ray completed showing clinical correlation recommended for right lower lobe infiltrate. Pneumonia or atelectasis could be considered lungs otherwise appear clear. Patient is having low-grade temps. Patient started on Rocephin. This time patient denies any nausea or vomiting. Patient denies chest pain or shortness breath. Denies any urinary burning or frequency. On 06/28/2018 patient was transferred to [facility] last night. During the night patient was found to have increased lethargy, hypotension and A. fib with RVR. Patient was 17 and transferred to the intensive care unit where she was intubated and started on levothyroxine and cardioverted. Patient is currently resting on ventilation with sedation. Family is at bedside. Per patient's daughter Priscilla patient has been noncompliant with her medication and CPAP machine at home. Cardiology, critical care infectious disease is following. On 06/30/2018 patient self extubated this AM. At this time patient is maintained on 3 L nasal cannula. Discussed case with Dr. Watt is with critical care. This time patient is resting comfortably in bed. Patient denies any chest pain or shortness of breath. Patient denies nausea vomiting or diarrhea. Denies any urinary burning or frequency. On 07/01/2018 patient is currently on room air much more alert. Left leg culture positive for MRSA. Infectious disease is following. Patient remains on IV antibiotics. This time patient denies chest pain or shortness breath. Patient denies nausea vomiting or diarrhea. Patient denies any urinary burning or frequency. On 07/02/2018 patient is alert and oriented currently sitting up in chair. Patient states she feels much improved. This time patient denies chest pain or shortness of breath. Patient denies nausea vomiting or diarrhea. Patient denies any urinary burning or frequency. Patient does report that she is significantly weak. Persistent cystic and out of bed. Physical therapy has been consulted. Will consult social media editor F discharge planning On 07/03/2018 patient is alert and oriented currently resting in bed. Patient daughter at bedside. At this time patient denies chest pain or shortness breath. Patient denies nausea vomiting or diarrhea. Patient denies any urinary burning or reconsider. Patient had elevated potassium at 6.1. Potassium level was treated per nephrology services. Will repeat potassium level at noon. Patient's heart rate is bradycardic in the 50s. The patient also started on Metroprolol yesterday per cardiology On 07/04/2018 patient is alert and oriented sitting up in bed. Potassium currently 5.0. Lisinopril has been decreased per nephrology services. This time patient denies chest pain or shortness breath. Patient denies nausea vomiting or diarrhea. Patient denies any urinary burning or frequency. Patient remains on Rocephin and daptomycin IV antibiotics. On 07/05/2018 Patient is alert and oriented in no distress had episode of shortness of breath this morning improved with updraft treatment. Patient denies any chest pain or shortness of breath. Patient denies nausea vomiting or diarrhea. Denies any urinary burning or frequency. On 07/06/2018 patient was seen and examined on the telemetry floor she is alert and oriented 3 in no apparent distress she is complaining of cough with difficulty bringing up phlegm otherwise she denies any complaints at this time there is no fever or chills no headache or dizziness no chest pain no shortness of breath no no nausea or vomiting no abdominal pain no diarrhea and no urinary symptoms. Objective - Vital Signs Vital signs: Vital Signs Temp 97.4 F L 07/06/18 08:00 Pulse 72 07/06/18 08:14 Resp 19 07/06/18 08:00 BP 139/82 07/06/18 08:00 Pulse Ox 98 07/06/18 08:00 Intake & Output 07/05/18 07/06/18 07/06/18 18:59 06:59 18:59 Weight 122 kg Other: Voiding Method Indwelling Catheter Indwelling Catheter Indwelling Catheter # Voids 1 # Bowel Movements 0 ABP, PAP, CO, CI - Last Documented Arterial Blood Pressure 159/69 - Exam Patient is alert and oriented in nodistress Head normocephalic and atraumatic Neck supple no JVD no goiter Lungs few scattered rhonchi no wheezing Heart regular rate and rhythm S1-S2, no rub or gallop Abdomen is soft nontender nondistended positive bowel sounds no hepatosplenomegaly Extremities no edema o cyanosis or clubbing - Labs CBC & Chem 7: 07/06/18 05:59 07/06/18 05:59 Labs: Abnormal Lab Results - Last 24 Hours (Table) 07/05/18 07/05/18 07/05/18 Range/Units 09:08 11:00 17:12 WBC (3.8-10.6) k/uL Neutrophils # (1.3-7.7) k/uL Monocytes # (0-1.0) k/uL ABG pH 7.46 H (7.35-7.45) ABG pCO2 59 H (35-45) mmHg ABG pO2 60 L (83-108) mmHg ABG HCO3 42 H* (21-25) mmol/L ABG Total CO2 44 H (19-24) mmol/L ABG O2 Saturation 92.9 L (94-97) % Chloride (98-107) mmol/L Carbon Dioxide (22-30) mmol/L BUN (7-17) mg/dL Glucose (74-99) mg/dL POC Glucose (mg/dL) 129 H 190 H (75-99) mg/dL Calcium (8.4-10.2) mg/dL Total Protein (6.3-8.2) g/dL Albumin (3.5-5.0) g/dL 07/05/18 07/06/18 07/06/18 Range/Units 21:07 05:59 05:59 WBC 15.9 H (3.8-10.6) k/uL Neutrophils # 13.3 H (1.3-7.7) k/uL Monocytes # 1.1 H (0-1.0) k/uL ABG pH (7.35-7.45) ABG pCO2 (35-45) mmHg ABG pO2 (83-108) mmHg ABG HCO3 (21-25) mmol/L ABG Total CO2 (19-24) mmol/L ABG O2 Saturation (94-97) % Chloride 94 L (98-107) mmol/L Carbon Dioxide 40 H (22-30) mmol/L BUN 34 H (7-17) mg/dL Glucose 139 H (74-99) mg/dL POC Glucose (mg/dL) 210 H (75-99) mg/dL Calcium 8.1 L (8.4-10.2) mg/dL Total Protein 4.9 L (6.3-8.2) g/dL Albumin 2.3 L (3.5-5.0) g/dL 07/06/18 Range/Units 06:29 WBC (3.8-10.6) k/uL Neutrophils # (1.3-7.7) k/uL Monocytes # (0-1.0) k/uL ABG pH (7.35-7.45) ABG pCO2 (35-45) mmHg ABG pO2 (83-108) mmHg ABG HCO3 (21-25) mmol/L ABG Total CO2 (19-24) mmol/L ABG O2 Saturation (94-97) % Chloride (98-107) mmol/L Carbon Dioxide (22-30) mmol/L BUN (7-17) mg/dL Glucose (74-99) mg/dL POC Glucose (mg/dL) 127 H (75-99) mg/dL Calcium (8.4-10.2) mg/dL Total Protein (6.3-8.2) g/dL Albumin (3.5-5.0) g/dL Assessment and Plan Plan: 1. Acute hypoxic per respiratory failure. CTA negative for PE. Patient off mechanical ventilation at this time. Dr. Piper is her regular press smith helper, Dr. Garrett is covering for this weekend. Patient was off sedation this morning however she did not tolerate she developed tachycardia and hypertension she will be restarted on sedation at this time. On 06/30/2018 patient did self extubate. She currently on room air 2. Severe sepsis associated with multifactorial process including pneumonia, UTI and cellulitis. Infectious disease is following. Patient currently on daptomycin and Rocephin. Right lower extremity wound culture positive for presumptive MRSA and gram-negative bacilli currently patient is on contact isolation. White blood cell that increased to 20.8. Patient is on steroids at this time. IV antibiotics with daptomycin and Rocephin. Infectious disease is following 3. History of paroxysmal atrial fibrillation. Patient denies being on anticoagulation. Cardiology services have been consulted. D-dimer has been ordered. Per cardiology patient is now on amiodarone plus anticoagulation with eliquis. Patient also started on metoprolol per cardiology 4. History of mitral valve endocarditis in 2014. Patient was transferred to [facility] at that time. Patient at this time denies following up with cardiology services. Cardiology services have been consulted 5. History of asthma 6. History of COPD 7. History of hyperlipidemia 8. History of essential hypertension 9. History of sleep apnea. Per patient's daughter patient noncompliant with CPAP machine at home 10. History of depression 11. Atrial fibrillation with rapid ventricular response. Patient was cardioverted 3 times and started on Cardizem. Cardiology services are following. At this time patient is in sinus rhythm. Cardizem drip has been DC' d due to hypotension. 2-D echo completed showing an EF of 60-65% with severe pulmonary hypertension. Patient started on eliquis for anticoagulation. She started on amiodarone per cardiology 12. Hypotension likely related to sepsis and A. fib with RVR. Patient currently maintained on Levaquin 5 for pressure support 13. Oliguric. Nephrology services are following. Patient did receive 1 time dose of IV Lasix and IV fluids. Urine output has improved. Lasix 20 mg daily has been added per nephrology. Urine has improved 14. Bilateral lower extremity cellulitis. Local wound culture with MRSA and Proteus patient currently on Rocephin and daptomycin. ID is following 15. Hyperkalemia. Potassium 6.1. potassium treated per nephrology services. Potassium 5.0. Lisinopril has been decreased per nephrology services DVT prophylaxis Eliquis. GI prophylaxis Protonix. Critical care, cardiology, nephrology and infectious disease following Physical therapy consulted. Social consulted for discharge planning patient will most likely require ECF placement upon discharge PT consulted.
[2018-07-06 11:04] LABS: Glucose,Whole Blood 113 mg/dL (75-99)
[2018-07-06] MEDS: guaiFENesin 600 MG TABLET.ER PO SCH ×2 (13:19→23:32)
--- NOTE | 2018-07-06 15:48 | PN ---
PROGRESS NOTE This patient was admitted with weakness and patient was treated for acute exacerbation of COPD and sepsis. The patient complained of some shortness of breath. Chest x-ray suggestive of bilateral pleural effusion. Ultrasound of the chest was done which does show evidence of pleural fluid but the report is not available. The patient is comfortable at present. Blood pressure is 139/82 mmHg. Heart S1 and S2 normal. Lungs are clinically clear to auscultation and percussion. We will start the patient on Lasix of 40 mg daily. Patient's creatinine remains stable. MMODL / IJN: [id number] /
[2018-07-06] MEDS: FUROSEMIDE 40 MG TAB PO SCH (16:28)
[2018-07-06] MEDS: DAPTOmycin 500 MG in SODIUM CHLORIDE 0.9% 50 ML IVPB SCH (16:28)
[2018-07-06 16:34] LABS: Glucose,Whole Blood 178 mg/dL (75-99)
--- NOTE | 2018-07-06 18:56 | US ---
EXAMINATION TYPE: US chest DATE OF EXAM: 07/05/2018 COMPARISON: None CLINICAL HISTORY: rule out bilateral effusion. bilateral chest TECHNIQUE: Targeted ultrasound of the posterior lower bilateral hemithoraces EXAM MEASUREMENTS: Right Pleural Effusion pocket size: 1.7 cm Left Pleural Effusion pocket size: 3.0 cm Bilateral chest NOT marked due to small pocket size and lung location. Pulmonologists are able to review the images in the patient?s EMR. IMPRESSIONS: 1. Small bilateral pleural effusions.
--- NOTE | 2018-07-06 21:12 | PN ---
PROGRESS NOTE She was seen again on 07/06/2018. She is less short of breath and is doing better overall. On physical examination, respiratory rate is 18, pulse rate of 73, temperature 97.9, blood pressure 102/66, O2 saturation on 3 L by nasal cannula is 95%. HEENT is unremarkable. Chest reveals decreased breath sounds. No wheeze. Occasional scattered crackles. Cardiovascular system reveals S1, S2. Abdomen is soft. She has 1+ pedal edema. LABS: Reveal a white count of 15.9, hemoglobin of 13.3, sodium 138, potassium 3.9, chloride 94, bicarb 40. IMPRESSION: At this time: 1. Congestive heart failure with renal insufficiency. 2. Pneumonia. 3. Atrial fibrillation. 4. Pulmonary hypertension. 5. Acute on chronic respiratory failure. 6. Recent sepsis with right lower lobe pneumonia. Continue current medications. Start to taper steroids. If she is otherwise doing better, increase activity level. Her prognosis is guarded. MMODL / IJN: [id number] /
[2018-07-06 21:45] LABS: Glucose,Whole Blood 187 mg/dL (75-99)
--- NOTE | 2018-07-07 05:48 | PN ---
PROGRESS NOTE DATE OF SERVICE: 07/06/2018. REASON FOR FOLLOWUP: Lower extremity cellulitis. INTERVAL HISTORY: The patient is afebrile. The patient is being breathing comfortably. The patient did not have some dry . No chest pain. No abdominal pain. Denies any pain in the left leg area. PHYSICAL EXAMINATION: On examination, blood pressure 102/66 with pulse of 73 temperature 97.9. She is 95% on 3 L nasal cannula. General description is an elderly female up in the bed in no distress. RESPIRATORY SYSTEM: Unlabored breathing with decreased breath sounds at the bases. No wheeze. HEART: S1, S2. Regular rate and rhythm. ABDOMEN: Soft, no tenderness. LABS: Hemoglobin 13.3, white count 15.9, BUN of 34, creatinine 0.73. Sputum has been negative. DIAGNOSTIC IMPRESSION AND PLAN: Patient with bilateral lower extremities cellulitis. Local cultures positive for methicillin-resistant Staphylococcus aureus and Proteus. Patient is currently on ceftriaxone and short course of oral on discharge. Her white count is showing a downward trend, more likely related to steroids. The patient was and needs to be watched closely. Continue supportive care. MMODL / IJN: [id number] /
[2018-07-07 05:59] LABS: Glucose,Whole Blood 96 mg/dL (75-99)
[2018-07-07] MEDS: INSULIN ASPART (NovoLOG) 100 UNIT/ML VIAL SQ SCH ×3 (06:30→17:18)
[2018-07-07 06:39] LABS: Basophils % (A) 0 %; Eosinophils % (A) 0 %; HCT 42.7 % (34.0-46.0); HGB 13.5 gm/dL (11.4-16.0); Hypochromasia Slight; Lymphocytes # (A) 1.3 k/uL (1.0-4.8); Lymphocytes % (A) 9 %; MCH 28.7 pg (25.0-35.0); MCHC 31.6 g/dL (31.0-37.0); MCV 90.8 fL (80.0-100.0); Mean Platelet Volume 7.4; Monocytes % (A) 7 %; Neutrophils # (A) 11.7 k/uL (1.3-7.7); Neutrophils % (A) 82 %; Platelet Count 248 k/uL (150-450); RDW 13.9 % (11.5-15.5); WBC 14.3 k/uL (3.8-10.6)
[2018-07-07 06:49] LABS: ALT 43 U/L (9-52); AST 24 U/L (14-36); Albumin 2.5 g/dL (3.5-5.0); Alkaline Phosphatase 51 U/L (38-126); Blood Urea Nitrogen 26 mg/dL (7-17); Calcium 8.3 mg/dL (8.4-10.2); Chloride 94 mmol/L (98-107); Glucose 101 mg/dL (74-99); Potassium 3.9 mmol/L (3.5-5.1); Sodium 139 mmol/L (137-145); Total Bilirubin 0.6 mg/dL (0.2-1.3); Total Protein 5.1 g/dL (6.3-8.2)
[2018-07-07 06:55] LABS: Anion Gap 4 mmol/L
[2018-07-07 06:58] LABS: Carbon Dioxide 41 mmol/L (22-30)
[2018-07-07] MEDS: IPRATROPIUM-ALBUTEROL 3 ML NEB INHALATION SCH ×3 (08:32→15:31)
[2018-07-07] MEDS: LISINOPRIL 5 MG TAB PO SCH (08:39)
[2018-07-07] MEDS: FUROSEMIDE 40 MG TAB PO SCH (08:39)
[2018-07-07] MEDS: predniSONE 20 MG TAB PO SCH (08:39)
[2018-07-07] MEDS: APIXABAN 5 MG TAB PO SCH (08:39)
[2018-07-07] MEDS: AMIODARONE 200 MG TAB PO SCH ×2 (08:39→17:18)
[2018-07-07] MEDS: METOPROLOL TARTRATE 25 MG TAB PO SCH (08:39)
[2018-07-07] MEDS: guaiFENesin 600 MG TABLET.ER PO SCH (08:39)
[2018-07-07] MEDS: PANTOPRAZOLE 40 MG TABLET PO SCH (08:39)
[2018-07-07] MEDS: SODIUM CHLORIDE 0.9% 500 ML 500 ML IV SCH (09:57)
--- NOTE | 2018-07-07 10:05 | P.PN ---
Subjective Patient is seen in follow-up for acute kidney injury which has resolved. She remains alkalotic with a bicarb level of 41. Dyspnea stable. No vomiting or diarrhea. She has been voiding. Vital signs are stable. General: The patient appeared well nourished and normally developed. HEENT: Head exam is unremarkable. Neck is without jugular venous distension. LUNGS: Breath sounds decreased. HEART: Rate and Rhythm are regular. First and second heart sounds normal. No murmurs, rubs or gallops. ABDOMEN: Abdominal exam reveals normal bowel sounds. Non-tender and non- distended. No evidence of peritonitis. EXTREMITITES: No clubbing, cyanosis, or edema. Objective - Vital Signs Vital signs: Vital Signs Temp 98.3 F 07/07/18 08:00 Pulse 72 07/07/18 08:46 Resp 18 07/07/18 08:00 BP 141/66 07/07/18 08:00 Pulse Ox 97 07/07/18 08:34 Intake & Output 07/06/18 07/07/18 07/07/18 18:59 06:59 18:59 Intake Total 289 Balance 289 Weight 124.5 kg Intake: Oral 260 Tube Feeding 29 Other: Voiding Method Incontinent Incontinent Incontinent # Voids 1 # Bowel Movements 1 ABP, PAP, CO, CI - Last Documented Arterial Blood Pressure 159/69 - Labs CBC & Chem 7: 07/07/18 05:42 07/07/18 05:42 Labs: Abnormal Lab Results - Last 24 Hours (Table) 07/06/18 07/06/18 07/06/18 Range/Units 11:02 16:33 21:43 WBC (3.8-10.6) k/uL Neutrophils # (1.3-7.7) k/uL Chloride (98-107) mmol/L Carbon Dioxide (22-30) mmol/L BUN (7-17) mg/dL Glucose (74-99) mg/dL POC Glucose (mg/dL) 113 H 178 H 187 H (75-99) mg/dL Calcium (8.4-10.2) mg/dL Total Protein (6.3-8.2) g/dL Albumin (3.5-5.0) g/dL 07/07/18 07/07/18 Range/Units 05:42 05:42 WBC 14.3 H (3.8-10.6) k/uL Neutrophils # 11.7 H (1.3-7.7) k/uL Chloride 94 L (98-107) mmol/L Carbon Dioxide 41 H* (22-30) mmol/L BUN 26 H (7-17) mg/dL Glucose 101 H (74-99) mg/dL POC Glucose (mg/dL) (75-99) mg/dL Calcium 8.3 L (8.4-10.2) mg/dL Total Protein 5.1 L (6.3-8.2) g/dL Albumin 2.5 L (3.5-5.0) g/dL Assessment and Plan Plan: Assessment: 1. Hyperkalemia secondary to hypoglycemia and use of kaela inhibitors. Resolved. 2. Metabolic alkalosis secondary to diuretics and use of prednisone. Bicarb level41 this morning. 3. Bilateral pleural effusions. 4. Bilateral lower extremity cellulitis maintained on antibiotics per infectious disease. 5. Atrial fibrillation. Rate controlled. Plan: Add Diamox 250 mg orally twice daily. Repeat electrolytes in the morning.
[2018-07-07] MEDS ORDERED: acetaZOLAMIDE 250 MG TAB PO SCH (10:15)
[2018-07-07] MEDS ORDERED: DOXYCYCLINE 100 MG CAP PO SCH (10:40)
[2018-07-07 11:39] LABS: Glucose,Whole Blood 102 mg/dL (75-99)
--- NOTE | 2018-07-07 14:19 | P.DS ---
Providers Date of admission: 06/27/18 07:26 Expected date of discharge: 07/07/18 Attending physician: Judah Goldstein Consults: 06/27/18 10:40 Consult Physician Routine Consulting Provider: Edu Angel Consult Reason/Comments: History of A. fib? Requirement for anticoagulation Do you want consulting provider notified?: Yes 06/27/18 14:04 Consult Physician Routine Consulting Provider: Duke Piper Consult Reason/Comments: Increased shortness of breath Do you want consulting provider notified?: Yes 06/27/18 14:16 Consult Physician Routine Consulting Provider: Anjali Kapadia Consult Reason/Comments: uti history of endocarditis Do you want consulting provider notified?: Yes 06/28/18 16:14 Consult Physician Routine Consulting Provider: Esther Blanton Consult Reason/Comments: oliguria Do you want consulting provider notified?: Yes Primary care physician: [facility] Course: Discharge diagnosis 1. Acute hypoxic per respiratory failure. CTA negative for PE. Patient off mechanical ventilation at this time. Dr. Piper is her regular production line operator, Dr. Garrett is covering for this weekend. Patient was off sedation this morning however she did not tolerate she developed tachycardia and hypertension she will be restarted on sedation at this time. On 06/30/2018 patient did self extubate. Patient currently maintained on 3 L nasal cannula. Patient will be DC'd on Diamox for elevated CO2. Discussed case with Dr. Villa per pulmonary services. Patient has been cleared for discharge 2. Severe sepsis associated with multifactorial process including pneumonia, UTI and cellulitis. Infectious disease is following. Patient currently on daptomycin and Rocephin. Right lower extremity wound culture positive for presumptive MRSA and gram-negative bacilli currently patient is on contact isolation. White blood cell that increased to 20.8. Patient is on steroids at this time. IV antibiotics with daptomycin and Rocephin. Infectious disease is following. Discussed case with infectious disease. Patient has been cleared for discharge. Patient to be DC'd on doxycycline for 5 more days 3. History of paroxysmal atrial fibrillation. Patient denies being on anticoagulation. Cardiology services have been consulted. D-dimer has been ordered. Per cardiology patient is now on amiodarone plus anticoagulation with eliquis. Patient also started on metoprolol per cardiology 4. History of mitral valve endocarditis in 2014. Patient was transferred to [facility] at that time. Patient at this time denies following up with cardiology services. Cardiology services have been consulted 5. History of asthma 6. History of COPD 7. History of hyperlipidemia 8. History of essential hypertension 9. History of sleep apnea. Per patient's daughter patient noncompliant with CPAP machine at home 10. History of depression 11. Atrial fibrillation with rapid ventricular response. Patient was cardioverted 3 times and started on Cardizem. Cardiology services are following. At this time patient is in sinus rhythm. Cardizem drip has been DC' d due to hypotension. 2-D echo completed showing an EF of 60-65% with severe pulmonary hypertension. Patient started on eliquis for anticoagulation. She started on amiodarone per cardiology 12. Hypotension likely related to sepsis and A. fib with RVR. Patient currently maintained on Levaquin 5 for pressure support 13. Oliguric. Nephrology services are following. Patient did receive 1 time dose of IV Lasix and IV fluids. Urine output has improved. Lasix 20 mg daily has been added per nephrology. Urine has improved 14. Bilateral lower extremity cellulitis. Local wound culture with MRSA and Proteus patient currently on Rocephin and daptomycin. ID is following 15. Hyperkalemia. Potassium 6.1. potassium treated per nephrology services. Potassium 5.0. Lisinopril has been decreased per nephrology services. Lisinopril has been decreased per nephrology services Hospital course This is a 77-year-old female patient of Dr. Palm. Patient patient presents to the emergency room with complaints of increased weakness and poor appetite for 5 days. Patient is a poor historian but does report that she had increased weakness with no appetite that progressively got worse over the past 2 days. Patient does have past medical history of A. fib and flutter but the patient reports that she is not currently on anticoagulation. Additional medical history includes asthma, heart failure, COPD, diabetes mellitus, hyperlipidemia , hypertension, osteoporosis, pneumonia, skin disorder, sleep apnea and depression. Patient's urinary analysis positive for a UTI. Urine culture ordered. Initial white blood cell 21.3. Repeat this a.m. 10.6. Patient's lactic acid 1.1. EKG completed showing sinus tachycardia with premature atrial complexes. Chest x-ray completed showing clinical correlation recommended for right lower lobe infiltrate. Pneumonia or atelectasis could be considered lungs otherwise appear clear. Patient is having low-grade temps. Patient started on Rocephin. This time patient denies any nausea or vomiting. Patient denies chest pain or shortness breath. Denies any urinary burning or frequency. On 06/28/2018 patient was transferred to [facility] last night. During the night patient was found to have increased lethargy, hypotension and A. fib with RVR. Patient was 17 and transferred to the intensive care unit where she was intubated and started on levothyroxine and cardioverted. Patient is currently resting on ventilation with sedation. Family is at bedside. Per patient's daughter Priscilla patient has been noncompliant with her medication and CPAP machine at home. Cardiology, critical care infectious disease is following. On 06/30/2018 patient self extubated this AM. At this time patient is maintained on 3 L nasal cannula. Discussed case with Dr. Watt is with critical care. This time patient is resting comfortably in bed. Patient denies any chest pain or shortness of breath. Patient denies nausea vomiting or diarrhea. Denies any urinary burning or frequency. On 07/01/2018 patient is currently on room air much more alert. Left leg culture positive for MRSA. Infectious disease is following. Patient remains on IV antibiotics. This time patient denies chest pain or shortness breath. Patient denies nausea vomiting or diarrhea. Patient denies any urinary burning or frequency. On 07/02/2018 patient is alert and oriented currently sitting up in chair. Patient states she feels much improved. This time patient denies chest pain or shortness of breath. Patient denies nausea vomiting or diarrhea. Patient denies any urinary burning or frequency. Patient does report that she is significantly weak. Persistent cystic and out of bed. Physical therapy has been consulted. Will consult long term care social worker ECF discharge planning On 07/03/2018 patient is alert and oriented currently resting in bed. Patient daughter at bedside. At this time patient denies chest pain or shortness breath. Patient denies nausea vomiting or diarrhea. Patient denies any urinary burning or reconsider. Patient had elevated potassium at 6.1. Potassium level was treated per nephrology services. Will repeat potassium level at noon. Patient's heart rate is bradycardic in the 50s. The patient also started on Metroprolol yesterday per cardiology On 07/04/2018 patient is alert and oriented sitting up in bed. Potassium currently 5.0. Lisinopril has been decreased per nephrology services. This time patient denies chest pain or shortness breath. Patient denies nausea vomiting or diarrhea. Patient denies any urinary burning or frequency. Patient remains on Rocephin and daptomycin IV antibiotics. On 07/05/2018 Patient is alert and oriented in no distress had episode of shortness of breath this morning improved with updraft treatment. Patient denies any chest pain or shortness of breath. Patient denies nausea vomiting or diarrhea. Denies any urinary burning or frequency. On 07/06/2018 patient was seen and examined on the telemetry floor she is alert and oriented 3 in no apparent distress she is complaining of cough with difficulty bringing up phlegm otherwise she denies any complaints at this time there is no fever or chills no headache or dizziness no chest pain no shortness of breath no no nausea or vomiting no abdominal pain no diarrhea and no urinary symptoms. On 07/06/2018 patient is alert and oriented resting comfortably in bed. Patient is complaining of increased weakness due to immobility. Patient denies nausea vomiting or diarrhea. Patient denies chest pain or shortness breath. Patient denies any urinary burning or frequency. Patient has been discharged from consulting providers. Patient will be DC'd on doxycycline per primary days. Patient will be going to [facility] facility. BMP will be ordered for 3 days per nephrology Patient Condition at Discharge: Stable Plan - Discharge Summary Discharge Rx Participant: Yes New Discharge Prescriptions: New Acetaminophen Tab [Tylenol] 500 mg PO Q6HR PRN tab PRN Reason: Fever and/ or Mild Pain acetaZOLAMIDE [Diamox] 250 mg PO BID tab Amiodarone [Cordarone] 200 mg PO TID tab Apixaban [Eliquis] 5 mg PO BID tab Docusate [Colace] 100 mg PO DAILY PRN cap PRN Reason: Constipation Doxycycline [Vibramycin] 100 mg PO BID 5 Days #10 cap Furosemide [Lasix] 40 mg PO DAILY tab guaiFENesin [Mucinex] 600 mg PO Q12HR tablet.er INSULIN ASPART (NovoLOG) [NovoLOG (formulary)] 0 unit SQ ACHS vial Lisinopril [Zestril] 5 mg PO DAILY tab Metoprolol Tartrate [Lopressor] 25 mg PO BID tab Pantoprazole [Protonix] 40 mg PO DAILY tablet. predniSONE 10 mg PO DIRECTED #30 Discontinued amLODIPine [Norvasc] 10 mg PO DAILY Lisinopril 20 mg PO DAILY Discharge Medication List Acetaminophen Tab [Tylenol] 500 mg PO Q6HR PRN tab 07/07/18 [Rx] Amiodarone [Cordarone] 200 mg PO TID tab 07/07/18 [Rx] Apixaban [Eliquis] 5 mg PO BID tab 07/07/18 [Rx] Docusate [Colace] 100 mg PO DAILY PRN cap 07/07/18 [Rx] Doxycycline [Vibramycin] 100 mg PO BID 5 Days #10 cap 07/07/18 [Rx] Furosemide [Lasix] 40 mg PO DAILY tab 07/07/18 [Rx] INSULIN ASPART (NovoLOG) [NovoLOG (formulary)] 0 unit SQ ACHS vial 07/07/18 [Rx ] Lisinopril [Zestril] 5 mg PO DAILY tab 07/07/18 [Rx] Metoprolol Tartrate [Lopressor] 25 mg PO BID tab 07/07/18 [Rx] Pantoprazole [Protonix] 40 mg PO DAILY tablet. 07/07/18 [Rx] acetaZOLAMIDE [Diamox] 250 mg PO BID tab 07/07/18 [Rx] guaiFENesin [Mucinex] 600 mg PO Q12HR tablet.er 07/07/18 [Rx] predniSONE 10 mg PO DIRECTED #30 07/07/18 [Rx] Follow up Appointment(s)/Referral(s): Jannette Palm DO [Primary Care Provider] - 1-2 days Duke Piper MD [STAFF PHYSICIAN] - 1 Week Anjali Kapadia MD [STAFF PHYSICIAN] - 1 Week Ambulatory/Diagnostic Orders: Basic Metabolic Panel [LAB.AMB] Time Frame: 3 Days, Location: None Selected Activity/Diet/Wound Care/Special Instructions: ECF Discharge Disposition: TRANSFER TO SNF/ECF
--- NOTE | 2018-07-07 14:23 | P.PN ---
Subjective Progress Note Date: 07/07/18 Principal diagnosis: Acute hypoxic respiratory failure, hypertension hypertensive cardiovascular disease, pneumonia, UTI, cellulitis, generalized weakness and medical debility, paroxysmal atrial fibrillation, history of mitral endocarditis, chronic persistent asthma and severe COPD, dyslipidemia, sleep disorder breathing and sleep apnea, would disorder depression, 07/07/2018, patient seen eval reexamined during the rounds clinically has improved significantly patient has been successfully weaned and extubated sitting upright on the bed care plan discussed with the primary service as well as the case technician patient is being sent to extended care facility for rehabilitation purposes, I've given her a prescription for bronchodilator and nebulizer medicine, agree with discharge planning labs reviewed medications reviewed care plan discussed with the patient as well as family members present at bedside at length, last chest x-ray performed 2 days ago continue show basal atelectasis and resolving infiltrate, the ultrasound of the chest revealed very small bilateral pleural effusion not enough to tap Morbidly obese 77-year-old female seen eval reexamined on fourth floor patient is in process of being transferred to [facility] data predominantly has been obtained from the chart, presents emergency department complaining of generalized weakness. Patient states she has needed 5 days she's lost her appetite. Patient states over the last 2 days she's got to the point where she can't stand on her own and she feels as though she could be unstable. Patient stated that this is the main reason she came in because of her generalized weakness. Patient denies any pain. Patient denies chest pain difficulty breathing or shortness of breath per patient denies abdominal pain patient denies any recent nausea vomiting diarrhea. Patient denies any recent fever chills or cough. Patient denies any lightheadedness or dizziness. Patient denies any headache patient denies numbness weakness. Patient states she's got chronic bilateral cellulitis and edema and she states that is unchanged. Patient denies any dysuria hematuria urinary frequency. Patient denies any injury or trauma. Patient does have past medical history of A. fib and flutter but the patient reports that she is not currently on anticoagulation. Additional medical history includes asthma, heart failure, COPD, diabetes mellitus, hyperlipidemia, hypertension, osteoporosis, pneumonia, skin disorder, sleep apnea and depression. Patient's urinary analysis positive for a UTI. Urine culture ordered. Initial white blood cell 21.3. Repeat this a.m. 10.6. Patient's lactic acid 1.1. EKG completed showing sinus tachycardia with premature atrial complexes. Chest x-ray completed showing clinical correlation recommended for right lower lobe infiltrate. Pneumonia or atelectasis could be considered lungs otherwise appear clear. Patient is having low-grade temps. Patient started on Rocephin. This time patient denies any nausea or vomiting. Patient denies chest pain or shortness breath. Denies any urinary burning or frequency. She has been noted to have extensive erythematous edema of both lower extremity especially on the left side consistent with cellulitis would recommend to add vancomycin as well I suspect elevated d-dimer is likely related to ongoing inflammatory process however would recommend to continue treat her with aggressive DVT prophylaxis noted that duplex ultrasound lower extremities pending Objective - Vital Signs Vital signs: Vital Signs Temp 97.4 F L 07/07/18 12:00 Pulse 60 07/07/18 12:00 Resp 20 07/07/18 12:00 BP 106/54 07/07/18 12:00 Pulse Ox 92 L 07/07/18 12:00 Intake & Output 07/06/18 07/07/18 07/07/18 18:59 06:59 18:59 Intake Total 289 Balance 289 Weight 124.5 kg Intake: Oral 260 Tube Feeding 29 Other: Voiding Method Incontinent Incontinent Incontinent # Voids 1 # Bowel Movements 1 ABP, PAP, CO, CI - Last Documented Arterial Blood Pressure 159/69 - Exam Gen.: Patient is Alert and oriented, no acute distress Cardiovascular: Irregular rate and rhythm, S1/S2 Lungs: Diminished breath sounds at the bases Abdomen: Soft nontender nondistended positive bowel sounds Extremities: 2-3+ pitting edema with cellulitis and chronic venous stasis, stasis dermatitis - Labs CBC & Chem 7: 07/07/18 05:42 07/07/18 05:42 Labs: Abnormal Lab Results - Last 24 Hours (Table) 07/06/18 07/06/18 07/07/18 Range/Units 16:33 21:43 05:42 WBC 14.3 H (3.8-10.6) k/uL Neutrophils # 11.7 H (1.3-7.7) k/uL Chloride (98-107) mmol/L Carbon Dioxide (22-30) mmol/L BUN (7-17) mg/dL Glucose (74-99) mg/dL POC Glucose (mg/dL) 178 H 187 H (75-99) mg/dL Calcium (8.4-10.2) mg/dL Total Protein (6.3-8.2) g/dL Albumin (3.5-5.0) g/dL 07/07/18 07/07/18 Range/Units 05:42 11:35 WBC (3.8-10.6) k/uL Neutrophils # (1.3-7.7) k/uL Chloride 94 L (98-107) mmol/L Carbon Dioxide 41 H* (22-30) mmol/L BUN 26 H (7-17) mg/dL Glucose 101 H (74-99) mg/dL POC Glucose (mg/dL) 102 H (75-99) mg/dL Calcium 8.3 L (8.4-10.2) mg/dL Total Protein 5.1 L (6.3-8.2) g/dL Albumin 2.5 L (3.5-5.0) g/dL Assessment and Plan Assessment: Severe sepsis associated with multifactorial processes including right lower lobe pneumonia as well as extensive cellulitis of the lower extremity Bilateral lower lobe pneumonia Small bilateral pleural effusion Extensive cellulitis of bilateral lower extremity more so on the left side compared right side Morbid obesity Acute hypoxic respiratory failure likely related to multifactorial issues and processes as noted above UTI Paroxysmal atrial fibrillation Chronic persistent asthma severe COPD Hypertension hypertensive cardiovascular disease Obstructive sleep apnea Plan: Bronchodilators Oral tapering steroids Oral antibiotics Agree with discharge planning, patient is going to extended care facility will follow in outpatient basis is prescription of bronchodilator has been provided Time with Patient: Greater than 30
--- NOTE | 2018-07-07 14:46 | PN ---
PROGRESS NOTE DATE OF SERVICE: 07/07/2018 REASON FOR FOLLOWUP: Lower extremity cellulitis. INTERVAL HISTORY: The patient is currently afebrile. The patient is breathing comfortably. Denies having any chest pain or any cough, but she did have minimal cough, not bringing up any sputum. No abdominal pain, no diarrhea. PHYSICAL EXAMINATION: Blood pressure 162/54 with a pulse of 50, temperature 97.4. She is 92% on 3 L nasal cannula. General description is an elderly female, lying in bed in no distress. RESPIRATORY SYSTEM: Unlabored breathing, clear to auscultation anteriorly. HEART: S1, S2. Regular rate and rhythm. ABDOMEN: Soft, no tenderness. LABS: White count of 14.3, BUN of 26, creatinine 0.61. DIAGNOSTIC IMPRESSION AND PLAN: Patient with bilateral lower extremity cellulitis. Did have some superficial wound that did show methicillin-resistant Staphylococcus aureus and Proteus for the patient received about 12 days of IV antibiotic therapy. She will transition to a short course of IV oral doxycycline. Chau wrap to the left to keep the swelling down and close outpatient followup. MMODL / IJN: [id number] /
[2018-07-07 15:59] VITALS: BP 120/57; PULSE 60; RESP 18; TEMP 98.2
[2018-07-07 17:00] LABS: Glucose,Whole Blood 238 mg/dL (75-99)
--- NOTE | 2018-07-08 09:12 | CDI ---
Documentation Clarification Form Date: 07/08/2018 9:06:00 AM From: Kenisha Gonzales Zofia Cooper, Director Of Radiology Hours-8:30 am & 5 pm M-F Admit Date: 06/27/2018 7:26:00 AM Patient Name: Nicole Goldsmith Visit Number: [id number] Discharge Date: 07/07/2018 5:58:00 PM ATTENTION: The Clinical Documentation Specialists (CDI) and [facility] Coding Staff appreciate your assistance in clarifying documentation. Please respond to the clarification below the line at the bottom and electronically sign. The CDI & [facility] Coding staff will review the response and follow-up if needed. Please note: Queries are made part of the Legal Health Record. If you have any questions, please contact the author of this message via ITS. Dr. Nicolas Corbett Heart failure is documented in the ED Note, H&P, consults and numerous PNs. History/Risk Factors: severe sepsis, UTI, PNA, AECOPD, Ac respiratory failure VS/Pulse OX: P-170, R-40, BP-45/34 BNP: 1270 Echocardiogram Results: Left ventricular systolic function is normal w EF between 60-65%. 06/30 Chest X Ray: Continued hypoventilatory changes and possible mild pulmonary vascular congestion. Continued small left effusion with adjacent atelectasis and /or consolidation. Treatment: Lasix IV 40 mg on 06/28, changed to 20 mg IV, 07/05 changed to 40 mg IV In your professional opinion, can you please clarify the acuity and type of CHF if known? TYPE Systolic Heart Failure Diastolic Heart Failure Systolic & Diastolic Heart Failure ACUITY Acute Chronic Acute on Chronic Heart Failure Unable to Determine Other, please specify MTDD
--- NOTE | 2018-07-10 12:53 | CDI ---
Documentation Clarification Form Date: 07/10/2018 From: Kenisha Christian Zofia Allison, Photolithographic Stripper Hours-8:30 am & 5 pm M-F Admit Date: 06/27/2018 7:26:00 AM Patient Name: Nicole Goldsmith Visit Number: [id number] Discharge Date: 07/07/2018 5:58:00 PM ATTENTION: The Clinical Documentation Specialists (CDI) and [facility] Coding Staff appreciate your assistance in clarifying documentation. Please respond to the clarification below the line at the bottom and electronically sign. The CDI & [facility] Coding staff will review the response and follow-up if needed. Please note: Queries are made part of the Legal Health Record. If you have any questions, please contact the author of this message via ITS. Dr. Gayle Mendoza Heart failure is documented in the ED Note, H&P, consults and numerous PNs. History/Risk Factors: severe sepsis, UTI, PNA, AECOPD, Ac respiratory failure VS/Pulse OX: P-170, R-40, BP-45/34 BNP: 1270 Echocardiogram Results: Left ventricular systolic function is normal w EF between 60-65%. 06/30 Chest X Ray: Continued hypoventilatory changes and possible mild pulmonary vascular congestion. Continued small left effusion with adjacent atelectasis and/or consolidation. Treatment: Lasix IV 40 mg on 06/28, changed to 20 mg IV, 07/05 changed to 40 mg IV In your professional opinion, can you please clarify the acuity and type of CHF if known? TYPE Systolic Heart Failure Diastolic Heart Failure Systolic & Diastolic Heart Failure ACUITY Acute Chronic Acute on Chronic Heart Failure Unable to Determine Other, please specify see addendum progress note MTDD
--- NOTE | 2018-07-17 14:23 | P.PN ---
Progress Note - Text Progress Note Date: 07/17/18 This is a dictation added as an addendum to the progress notes, is been increased. Patient has diastolic congestive heart failure acute on chronic. DNP note has been reviewed, I agree with a documented findings and plan of care. Patient was seen and examined.
== END 2018-07-07 17:58 | DRG 871 ==
LOC: EC 12:35 → 4MS4W 16:42 → OBSVTOIN 06-27 07:26 → 4MS4W 06-27 08:14 → 3SCARD 06-27 17:10 → 2SICU 06-28 04:21 → 3SCARD 07-04 23:15
PROVIDERS: ADMIT Internal Medicine; ATTEND Internal Medicine
PROC: 5A1945Z Respiratory Ventilation, 24-96 Consecutive Hours (ICD-10-PCS; principal; 2018-06-28)
PROC: 0BH17EZ Insertion of Endotracheal Airway into Trachea, Via Natural or Artificial Opening (ICD-10-PCS; 2018-06-28)
PROC: 5A09357 Assistance with Respiratory Ventilation, Less than 24 Consecutive Hours, Continuous Positive Airway Pressure (ICD-10-PCS; 2018-06-28)
DX: A41.9 Sepsis, unspecified organism (principal); J18.1 Lobar pneumonia, unspecified organism; N17.0 Acute kidney failure with tubular necrosis; J96.21 Acute and chronic respiratory failure with hypoxia; J96.22 Acute and chronic respiratory failure with hypercapnia; I50.33 Acute on chronic diastolic (congestive) heart failure; N39.0 Urinary tract infection, site not specified; L03.115 Cellulitis of right lower limb; L03.116 Cellulitis of left lower limb; J44.0 Chronic obstructive pulmonary disease with (acute) lower respiratory infection; E87.4 Mixed disorder of acid-base balance; E44.0 Moderate protein-calorie malnutrition; Z68.42 Body mass index [BMI] 45.0-49.9, adult; E66.2 Morbid (severe) obesity with alveolar hypoventilation; J44.1 Chronic obstructive pulmonary disease with (acute) exacerbation; R65.20 Severe sepsis without septic shock; E87.5 Hyperkalemia; I27.20 Pulmonary hypertension, unspecified; E11.65 Type 2 diabetes mellitus with hyperglycemia; I11.0 Hypertensive heart disease with heart failure; I48.0 Paroxysmal atrial fibrillation; I34.0 Nonrheumatic mitral (valve) insufficiency; T46.4X5A Adverse effect of angiotensin-converting-enzyme inhibitors, initial encounter; T50.2X5A Adverse effect of carbonic-anhydrase inhibitors, benzothiadiazides and other diuretics, initial encounter; T38.0X5A Adverse effect of glucocorticoids and synthetic analogues, initial encounter; E87.6 Hypokalemia; G47.33 Obstructive sleep apnea (adult) (pediatric); M81.0 Age-related osteoporosis without current pathological fracture; E78.5 Hyperlipidemia, unspecified; I87.8 Other specified disorders of veins; I87.2 Venous insufficiency (chronic) (peripheral); I49.1 Atrial premature depolarization; K59.00 Constipation, unspecified; L98.9 Disorder of the skin and subcutaneous tissue, unspecified; M19.90 Unspecified osteoarthritis, unspecified site; R32 Unspecified urinary incontinence; Z79.899 Other long term (current) drug therapy; Z91.19 Patient's noncompliance with other medical treatment and regimen; Z99.89 Dependence on other enabling machines and devices; Z71.3 Dietary counseling and surveillance; Z90.710 Acquired absence of both cervix and uterus; Z98.84 Bariatric surgery status; Z90.49 Acquired absence of other specified parts of digestive tract; Z96.653 Presence of artificial knee joint, bilateral; Z87.440 Personal history of urinary (tract) infections; Z86.59 Personal history of other mental and behavioral disorders; Z87.81 Personal history of (healed) traumatic fracture; Z87.891 Personal history of nicotine dependence; Z98.42 Cataract extraction status, left eye; Z98.41 Cataract extraction status, right eye; Z88.1 Allergy status to other antibiotic agents; Z88.2 Allergy status to sulfonamides; Z88.8 Allergy status to other drugs, medicaments and biological substances; Z91.048 Other nonmedicinal substance allergy status; Z83.2 Family history of diseases of the blood and blood-forming organs and certain disorders involving the immune mechanism; Z80.9 Family history of malignant neoplasm, unspecified; Z82.49 Family history of ischemic heart disease and other diseases of the circulatory system
CPT/HCPCS: 36415; 36600; 71045; 71046; 71275; 76604; 80048; 80053; 81001; 82550; 82553; 82805; 83036; 83605; 83735; 83880; 84100; 84132; 84484; 85025; 85379; 85610; 85730; 87040; 87070; 87077; 87086; 87186; 87205; 87502; 93005; 93306; 93970; 94002; 94003; 94640; 94660; 94760; 96361; 96365; 99285

== ENCOUNTER 2018-08-03 09:30 | Inpatient (IN) | payer MEDICARE ==
[2018-08-03] MEDS ORDERED: SODIUM CHLORIDE 0.9% 500 ML 500 ML IV STA ×2 (09:55→12:25)
[2018-08-03] MEDS ORDERED: ONDANSETRON 4 MG/2 ML VIAL IVP STA ×2 (09:55→13:15)
[2018-08-03] MEDS ORDERED: MORPHINE SULFATE 2 MG/ML SYRINGE IVP STA (09:55)
--- NOTE | 2018-08-03 10:24 | ED ---
General Adult HPI - General Source: patient, EMS, RN notes reviewed Mode of arrival: EMS Limitations: no limitations <Chan Zurita - Last Filed: 08/03/18 14:25> <Ronald Manzano - Last Filed: 08/03/18 14:43> - General Chief complaint: Nausea/Vomiting/Diarrhea Stated complaint: Abd.pain Time Seen by Provider: 08/03/18 09:38 - History of Present Illness Initial comments: 78-year-old female with, but she did past medical history significant for atrial fibrillation, asthma, heart failure, COPD, diabetes, hyperlipidemia, hypertension presents to the emergency department for a chief complaint of nausea vomiting 3 days. Patient states she has not been able to keep down solids or liquids. She has not had a bowel movement for the last few days either. She does states she is having flatulence. Patient also complains about abdominal pain. She states is in the middle of her abdomen. Patient discharged from hospital one month ago for multifactorial sepsis and respiratory failure. Patient currently staying at [facility]. Patient has no other complaints at this time including shortness of breath, chest pain, headache, or visual changes. (Chan Zurita) - Related Data Home Medications Medication Instructions Recorded Confirmed Ammonium Lactate Lotion 1 applic TOPICAL BID 08/03/18 08/03/18 [Lac-Hydrin 12% Lotion] INSULIN ASPART (NovoLOG) [NovoLOG See Protocol SQ ACHS 08/03/18 08/03/18 (formulary)] Ondansetron [Zofran] 4 mg PO Q6H PRN 08/03/18 08/03/18 Pravastatin Sodium [Pravachol] 20 mg PO DAILY 08/03/18 08/03/18 Pro Stat 30ml 30 ml PO DAILY 08/03/18 08/03/18 Previous Rx's Medication Instructions Recorded Acetaminophen Tab [Tylenol] 500 mg PO Q6HR PRN tab 07/07/18 Amiodarone [Cordarone] 200 mg PO TID tab 07/07/18 Apixaban [Eliquis] 5 mg PO BID tab 07/07/18 Ipratropium-Albuterol Nebulize 3 ml INHALATION RT-Q2H PRN 07/07/18 [Duoneb 0.5 mg-3 mg/3 ml Soln] ampul.neb Ipratropium-Albuterol Nebulize 3 ml INHALATION RT-QID ampul.jac 07/07/18 [Duoneb 0.5 mg-3 mg/3 ml Soln] Metoprolol Tartrate [Lopressor] 25 mg PO BID tab 07/07/18 Pantoprazole [Protonix] 40 mg PO DAILY tablet. 07/07/18 guaiFENesin [Mucinex] 600 mg PO Q12HR tablet.er 07/07/18 Allergies Allergy/AdvReac Type Severity Reaction Status Date / Time thallium-201 Allergy Intermediate Rash/Hives Verified 08/03/18 10:05 Sulfa (Sulfonamide AdvReac Severe low Verified 08/03/18 10:05 Antibiotics) hemoglobin aspirin AdvReac Mild blood in Verified 08/03/18 10:05 stool vancomycin AdvReac Rash/Hives Verified 08/03/18 10:05 steri strips AdvReac Mild blisters Uncoded 06/26/18 12:43 skin Review of Systems ROS Other: All systems not noted in ROS Statement are negative. <Chan Zurita P - Last Filed: 08/03/18 14:25> ROS Other: All systems not noted in ROS Statement are negative. <Ronald Manzano - Last Filed: 08/03/18 14:43> ROS Statement: Those systems with pertinent positive or pertinent negative responses have been documented in the HPI. Past Medical History Past Medical History: Atrial Fibrillation, Atrial Flutter, Asthma, Heart Failure, COPD, Diabetes Mellitus, Hyperlipidemia, Hypertension, Osteoarthritis (OA), Pneumonia, Skin Disorder, Sleep Apnea/CPAP/BIPAP Additional Past Medical History / Comment(s): heart valve problem 1 year ago-not sure of name, no cpap used, anemia, "chocolate" color stool, degenerative arthr itis, "Bite" swenson on arms-cause unknown, no current rx for diabetes-diet control, leakage of urine, uses walker History of Any Multi-Drug Resistant Organisms: MRSA Date of last positivie culture/infection: 06/27/18 MDRO Source:: Right Leg Past Surgical History: Appendectomy, Bariatric Surgery, Hysterectomy, Joint Replacement, Orthopedic Surgery, Tonsillectomy Additional Past Surgical History / Comment(s): Picc line insertion/later removed, lap band, right knee replacement x 2 & left knee replaced with revision, L ganglion wirst surg., left ankle ORIF, right trigger thumb surg. juan cataracts Past Anesthesia/Blood Transfusion Reactions: Previous Problems w/ Anesthesia Additional Past Anesthesia/Blood Transfusion Reaction / Comment(s): difficulty waking up @times Past Psychological History: Depression Smoking Status: Never smoker Past Alcohol Use History: Rare Past Drug Use History: None Reported - Past Family History Daughter(s) Family Medical History: Deep Vein Thrombosis (DVT), Pulmonary Embolus Father Family Medical History: Cancer Mother Additional Family Medical History / Comment(s): Mother had hypotension. <Chan Zurita P - Last Filed: 08/03/18 14:25> General Exam Limitations: no limitations General appearance: alert, in no apparent distress Head exam: Present: atraumatic, normocephalic, normal inspection Eye exam: Present: normal appearance, PERRL, EOMI. Absent: scleral icterus, conjunctival injection, periorbital swelling ENT exam: Present: normal exam, mucous membranes moist Neck exam: Present: normal inspection, full ROM. Absent: tenderness, meningismus, lymphadenopathy Respiratory exam: Present: normal lung sounds bilaterally. Absent: respiratory distress, wheezes, rales, rhonchi, stridor Cardiovascular Exam: Present: regular rate, normal rhythm, normal heart sounds. Absent: systolic murmur, diastolic murmur, rubs, gallop, clicks GI/Abdominal exam: Present: soft, tenderness (mild epigastric tenderness without guarding, although patient does localize pain as lower in the abdomen around umbilicus), normal bowel sounds. Absent: distended, guarding, rebound, rigid Neurological exam: Present: alert, oriented X3, CN II-XII intact Psychiatric exam: Present: normal affect, normal mood <Chan Zurita P - Last Filed: 08/03/18 14:25> Course <Chan Zurita P - Last Filed: 08/03/18 14:25> Vital Signs 08/03/18 08/03/18 08/03/18 09:32 11:30 12:42 Temperature 98.3 F 98.1 F Pulse Rate 80 76 81 Respiratory 24 22 18 Rate Blood Pressure 164/75 127/67 136/73 O2 Sat by Pulse 96 98 98 Oximetry - Reevaluation(s) Reevaluation #1: 08/03/18 11:41 called lab at 1141 as I still do not have CT back (Chan Zurita) EKG Findings - EKG Comments: EKG Findings:: Normal sinus rhythm, ventricular rate 79, OK interval and 60, QTC 483, no evidence of ST elevation or depression <Chan Zurita - Last Filed: 08/03/18 14:25> Medical Decision Making - Lab Data Result diagrams: 08/03/18 10:38 08/03/18 10:38 <Chan Zurita - Last Filed: 08/03/18 14:25> - Lab Data Result diagrams: 08/03/18 10:38 08/03/18 10:38 <Ronald Manzano - Last Filed: 08/03/18 14:43> - Medical Decision Making 78-year-old female presenting with nausea vomiting decreased bowel movements over the past 3 days. Patient to evaluate, as distended abdomen with generalized tenderness, no rebound or guarding. CT is performed which shows high-grade small bowel obstruction. She has mild leukocytosis, lactic of 2.6. I did discuss case with Dr. Lara, , this patient is previously known. Recommended fluid bolus, NG tube, nothing by mouth we'll admit with medicine on consult. (Ronald Manzano) - Lab Data Lab Results 08/03/18 08/03/18 08/03/18 Range/Units 10:38 10:38 10:38 WBC 13.4 H (3.8-10.6) k/uL RBC 5.03 (3.80-5.40) m/uL Hgb 14.0 (11.4-16.0) gm/dL Hct 43.7 (34.0-46.0) % MCV 86.9 (80.0-100.0) fL MCH 27.9 (25.0-35.0) pg MCHC 32.1 (31.0-37.0) g/dL RDW 14.8 (11.5-15.5) % Plt Count 417 (150-450) k/uL Neutrophils % 88 % Lymphocytes % 5 % Monocytes % 6 % Eosinophils % 0 % Basophils % 0 % Neutrophils # 11.7 H (1.3-7.7) k/uL Lymphocytes # 0.7 L (1.0-4.8) k/uL Monocytes # 0.8 (0-1.0) k/uL Eosinophils # 0.0 (0-0.7) k/uL Basophils # 0.0 (0-0.2) k/uL Sodium 136 L (137-145) mmol/L Potassium 3.6 (3.5-5.1) mmol/L Chloride 93 L (98-107) mmol/L Carbon Dioxide 33 H (22-30) mmol/L Anion Gap 10 mmol/L BUN 26 H (7-17) mg/dL Creatinine 0.96 (0.52-1.04) mg/dL Est GFR (CKD-EPI)AfAm 65 (>60 ml/min/1.73 sqM) Est GFR (CKD-EPI)NonAf 57 (>60 ml/min/1.73 sqM) Glucose 168 H (74-99) mg/dL Plasma Lactic Acid Maulik 2.6 H* (0.7-2.0) mmol/L Calcium 9.6 (8.4-10.2) mg/dL Magnesium 1.8 (1.6-2.3) mg/dL Total Bilirubin 0.9 (0.2-1.3) mg/dL AST 26 (14-36) U/L ALT 28 (9-52) U/L Alkaline Phosphatase 102 (38-126) U/L Troponin I (0.000-0.034) ng/mL Total Protein 6.6 (6.3-8.2) g/dL Albumin 3.8 (3.5-5.0) g/dL Amylase 48 (30-110) U/L Lipase 57 (23-300) U/L 08/03/18 Range/Units 10:38 WBC (3.8-10.6) k/uL RBC (3.80-5.40) m/uL Hgb (11.4-16.0) gm/dL Hct (34.0-46.0) % MCV (80.0-100.0) fL MCH (25.0-35.0) pg MCHC (31.0-37.0) g/dL RDW (11.5-15.5) % Plt Count (150-450) k/uL Neutrophils % % Lymphocytes % % Monocytes % % Eosinophils % % Basophils % % Neutrophils # (1.3-7.7) k/uL Lymphocytes # (1.0-4.8) k/uL Monocytes # (0-1.0) k/uL Eosinophils # (0-0.7) k/uL Basophils # (0-0.2) k/uL Sodium (137-145) mmol/L Potassium (3.5-5.1) mmol/L Chloride (98-107) mmol/L Carbon Dioxide (22-30) mmol/L Anion Gap mmol/L BUN (7-17) mg/dL Creatinine (0.52-1.04) mg/dL Est GFR (CKD-EPI)AfAm (>60 ml/min/1.73 sqM) Est GFR (CKD-EPI)NonAf (>60 ml/min/1.73 sqM) Glucose (74-99) mg/dL Plasma Lactic Acid Maulik (0.7-2.0) mmol/L Calcium (8.4-10.2) mg/dL Magnesium (1.6-2.3) mg/dL Total Bilirubin (0.2-1.3) mg/dL AST (14-36) U/L ALT (9-52) U/L Alkaline Phosphatase (38-126) U/L Troponin I <0.012 (0.000-0.034) ng/mL Total Protein (6.3-8.2) g/dL Albumin (3.5-5.0) g/dL Amylase (30-110) U/L Lipase (23-300) U/L Disposition Time of Disposition: 13:59 <Chan Zurita P - Last Filed: 08/03/18 14:25> <Ronald Manzano - Last Filed: 08/03/18 14:43> Clinical Impression: Small bowel obstruction Disposition: ADMITTED IP TO THIS [facility] Condition: Fair
[2018-08-03 10:56] LABS: Basophils % (A) 0 %; Eosinophils % (A) 0 %; HCT 43.7 % (34.0-46.0); Lymphocytes # (A) 0.7 k/uL (1.0-4.8); Lymphocytes % (A) 5 %; MCH 27.9 pg (25.0-35.0); MCHC 32.1 g/dL (31.0-37.0); MCV 86.9 fL (80.0-100.0); Mean Platelet Volume 6.7; Monocytes # (A) 0.8 k/uL (0-1.0); Monocytes % (A) 6 %; Neutrophils # (A) 11.7 k/uL (1.3-7.7); Neutrophils % (A) 88 %; Platelet Count 417 k/uL (150-450); RBC 5.03 m/uL (3.80-5.40); RDW 14.8 % (11.5-15.5); WBC 13.4 k/uL (3.8-10.6)
[2018-08-03 11:10] LABS: Albumin 3.8 g/dL (3.5-5.0); Calcium 9.6 mg/dL (8.4-10.2); Magnesium 1.8 mg/dL (1.6-2.3); Potassium 3.6 mmol/L (3.5-5.1); Total Bilirubin 0.9 mg/dL (0.2-1.3); Total Protein 6.6 g/dL (6.3-8.2)
--- NOTE | 2018-08-03 12:48 | CT ---
EXAMINATION TYPE: CT abdomen pelvis w con DATE OF EXAM: 08/03/2018 COMPARISON: NONE HISTORY: 78-year-old female with abdominal pain TECHNIQUE: Contiguous axial scanning of the abdomen and pelvis following administration of 100 ml Iso evert 300 IV contrast. Delayed images through the kidneys and coronal/sagittal reconstructions perform ed. CT DLP: 1677.9 mGycm Automated exposure control for dose reduction was used. FINDINGS: Heart normal size: Mild left atrial dilatation. Mitral annular calcifications are present. No pleural effusion. Large caliber to the main right pulmonary artery 2.7 cm suggesting underlying pulmonary ar terial hypertension. Elevation of right hemidiaphragm with patchy atelectasis basilar right middle lo be. Additional patchy bibasilar areas of atelectasis. No pleural effusion. Uncomplicated left and is demonstrated. Fluid within the stomach. Mild perihepatic ascites, some mesenteric edema mid and lower abdomen. No free air. No focal examination or biliary ductal dilatation. Portal venous system is patent. Some layering gravel within the nondistended gallbladder. Adrenal glands, kidneys, spleen, and atrophic pancreas show no gross abnormality. There is a high-grade small bowel obstruction at the proximal third to proximal half level involving the jejunum. Transition point in the mid lower abdomen axial image 56, sagittal image 64, and coronal image 27. Fluid-filled small bowel loops are dilated up to 4.2 cm and looks beyond the transition point or comp letely collapsed. There is edematous wall thickening of bowel loops and mesenteric edema without pneu matosis or portal venous gas seen. Moderate sized fatty umbilical hernia measuring 3.7 cm wide in the hernia neck measuring 1.5 cm wide. The hernia sac contains mild ascites fluid. Moderate atherosclerotic calcifications abdominal aorta and iliac arteries. Bladder partially distended. Prominent fecal debris distending the rectum up to 6.7 cm wide. No abnor mal fluid collection in the pelvis or pelvic lymphadenopathy. Mild left-sided colonic diverticulosis. No pericolonic inflammatory change. Degenerated levoconvex scoliosis. IMPRESSION: 1. HIGH-GRADE SMALL BOWEL OBSTRUCTION AT THE PROXIMAL THIRD TO HALF LEVEL, TRANSITION POINT IN THE WI D LOWER ABDOMEN. SMALL BOWEL LOOPS ARE DILATED UP TO 4.2 CM AND EDEMATOUS WITH REACTIVE MESENTERIC ED QUENTIN AND MILD ASCITES FLUID. 2. PROMINENT FECAL DISTENTION OF THE RECTUM UP TO 6.7 CM WIDE. 3. MODERATE-SIZED FAT AND ASCITES CONTAINING UMBILICAL HERNIA MEASURING 3.7 CM WIDE.
[2018-08-03] MEDS ORDERED: PIPERACILLIN-TAZOBACTAM 3.375 GM in SODIUM CHLORIDE 0.9% 100 ML IVPB ONE (13:15)
[2018-08-03] MEDS ORDERED: MORPHINE SULFATE 4 MG/ML SYRINGE IVP STA (13:15)
[2018-08-03] MEDS ORDERED: SODIUM CHLORIDE 0.9% 500 ML 500 ML IV ONE (13:49)
[2018-08-03] MEDS ORDERED: NALOXONE 0.4 MG/ML 1 ML VIAL IV PRN (13:55)
[2018-08-03] MEDS ORDERED: SODIUM CHLORIDE 0.9% 1,000 ML IV SCH (14:00)
[2018-08-03 14:33] LABS: Squamous Epithelial Cell,Urine 4 /hpf (0-4)
[2018-08-03 14:37] LABS: Appearance,Urine Clear (Clear); Color,Urine Amber; Glucose,Urine (UA) Negative (Negative); Protein,Urine 1+ (Negative); Specific Gravity,Urine 1.015 (1.001-1.035)
[2018-08-03 14:38] LABS: Bilirubin,Urine Negative (Negative); Blood,Urine Negative (Negative); Ketones,Urine Negative (Negative)
[2018-08-03 14:39] LABS: Leukocyte Esterase,Urine Negative (Negative); Nitrite,Urine Negative (Negative); RBC,Urine 2 /hpf (0-5); Urobilinogen,Urine <2.0 mg/dL (<2.0); WBC,Urine 2 /hpf (0-5)
[2018-08-03 14:40] LABS: Hyaline Casts,Urine 1 /lpf (0-2)
[2018-08-03] MEDS: SODIUM CHLORIDE 0.9% 1,000 ML IV SCH (16:15)
--- NOTE | 2018-08-03 16:53 | XR ---
EXAMINATION TYPE: XR chest 1V DATE OF EXAM: 08/03/2018 COMPARISON: 07/05/2018 HISTORY: 78-year-old female NG tube insertion. TECHNIQUE: Single frontal view of the chest is obtained. FINDINGS: NG tube courses below the diaphragm and is looped within the stomach. Continued elevation right hemid iaphragm with crowded vascular markings. Heart appears normal size. Some strandy atelectasis in the l ower lungs. No sizable effusion. IMPRESSION: 1. NG tube courses below the diaphragm and is looped in the stomach. 2. Volume loss of the right base. No definite acute process.
--- NOTE | 2018-08-03 17:08 | P.GSHP ---
History of Present Illness H&P Date: 08/03/18 CHIEF COMPLAINT: Abdominal pain HISTORY OF PRESENT ILLNESS: The patient is a 78-year-old female admitted secondary to 3 day history of right upper and right lower quadrant abdominal pain. She reports the pain started periumbilical. She has a personal history of adjustable gastric band including morbid obesity BMI 41.7. She had a CT of the abdomen and pelvis that confirmed bowel obstruction with a transition point along the right abdomen. Since placement of the nasogastric tube, her pain has gone crampy from severe to mild. She has not passed flatus in over 2 days. Last bowel movement over 3-5 days ago. No reports of blood in stools. Last colonoscopy 1-2 years ago. PAST MEDICAL HISTORY: See list. PAST SURGICAL HISTORY: See list. MEDICATIONS: See list. ALLERGIES: See list. SOCIAL HISTORY: No illicit drug use FAMILY HISTORY: No reports of Crohn's disease or inflammatory bowel disease REVIEW OF ORGAN SYSTEMS: CONSTITUTIONAL: No fevers or chills. No recent weight loss. EYES: Denies any trouble with vision. HEENT: No difficulties with hearing. No nosebleeds. No difficulty swallowing. RESPIRATORY: Has obstructive sleep apnea. No recent pneumonia. CARDIOVASCULAR: History of arrhythmia with atrial flutter and atrial fibrillation. Chronic anticoagulation. GASTROINTESTINAL: Denies fatty food intolerance. Has constipation and change in bowel habits. GENITOURINARY: Denies any blood in urine or increased urinary frequency. NEUROLOGICAL: Denies any numbness or tingling along the distal extremities. No seizure disorders or headaches. MUSCULOSKELETAL: hasback pain, stiffness or joint arthritis. SKIN: No current skin cancer. No current rash. PSYCHIATRIC: Denies current depression or suicidal thoughts. ENDOCRINE: Denies current thyroid disorders. Denies any blood sugar glucose intolerance. HEME/LYMPHATIC: Chronic Blood Thinners. ALLERGY/IMMUNOLOGY: No immunoglobulin therapy. No immune deficiencies. BREAST: Denies current breast lumps, pain or nipple discharge. PHYSICAL EXAM: VITALS: Reviewed CONSTITUTIONAL: Well developed and in no acute distress. EYES: Conjuctivae without sclera icterus. Pupils are equally round and reactive to light. Extraocular movements grossly intact. HEAD, EARS, NOSE, THROAT: Moist buccal mucosa. Head is atraumatic, normocephalic. Hears conversational speech. No nasal drainage. NECK: Supple. No JV distention. No thyroidomegaly. RESPIRATORY: Non-labored respirations and equal bilateral excursions. No gross wheezes. CARDIOVASCULAR: Irregular rate. Irregular rhythm. Extremities without moderate edema. Palpable 2+ radial pulses. ABDOMEN: No hepatomegaly. Soft. Non-tender. Nondistended. LYMPH: No neck lymphadenopathy. No axillary lymphadenopathy. MUSCULOSKELETAL: No clubbing. No cyanosis. SKIN: Warm and well perfused with good skin turgor. NEUROLOGIC: Cranial nerves I through XII grossly intact.No focal or lateralizing signs. PSYCH: Appropriate affect. Alert and oriented to person, place and time. Displays appropriate insight. CLINCAL LABS: Reviewed RADIOLOGY: Report reviewed IMAGING: Independently reviewed with localized small bowel dilatation along the right abdomen consistent with mechanical small bowel obstruction ASSESSMENT: 1. Small bowel obstruction, but due to peritoneal adhesions 2. Morbid obesity due to excess calories, BMI 40.7 3. Abdominal pain, right upper, right lower quadrant PLAN: 1. IV fluid hydration 2. Nasogastric tube continued to decompression 3. Surgical intervention described however patient currently on blood thinner. Will need 24-48 hours 4. Patient clinically improved in less than 24 hours with placement of NG tube Thank you for this kind consultation. Past Medical History Past Medical History: Atrial Fibrillation, Atrial Flutter, Asthma, Heart Failure, COPD, Diabetes Mellitus, Hyperlipidemia, Hypertension, Osteoarthritis (OA), Pneumonia, Skin Disorder, Sleep Apnea/CPAP/BIPAP Additional Past Medical History / Comment(s): heart valve problem 1 year ago-not sure of name, no cpap used, anemia, "chocolate" color stool, degenerative arthritis, "Bite" swenson on arms-cause unknown, no current rx for diabetes-diet control, leakage of urine, uses walker History of Any Multi-Drug Resistant Organisms: MRSA Date of last positivie culture/infection: 06/27/18 MDRO Source:: Right Leg Past Surgical History: Appendectomy, Bariatric Surgery, Hysterectomy, Joint Replacement, Orthopedic Surgery, Tonsillectomy Additional Past Surgical History / Comment(s): Picc line insertion/later removed, lap band, right knee replacement x 2 & left knee replaced with revision, L ganglion wirst surg., left ankle ORIF, right trigger thumb surg. juan cataracts Past Anesthesia/Blood Transfusion Reactions: Previous Problems w/ Anesthesia Additional Past Anesthesia/Blood Transfusion Reaction / Comment(s): difficulty waking up @times Past Psychological History: Depression Additional Psychological History / Comment(s): . Smoking Status: Never smoker Past Alcohol Use History: Rare Past Drug Use History: None Reported - Past Family History Daughter(s) Family Medical History: Deep Vein Thrombosis (DVT), Pulmonary Embolus Father Family Medical History: Cancer Mother Additional Family Medical History / Comment(s): Mother had hypotension. Medications and Allergies Home Medications Medication Instructions Recorded Confirmed Type Acetaminophen Tab [Tylenol] 500 mg PO Q6HR PRN tab 07/07/18 08/03/18 Rx Amiodarone [Cordarone] 200 mg PO TID tab 07/07/18 08/03/18 Rx Apixaban [Eliquis] 5 mg PO BID tab 07/07/18 08/03/18 Rx Ipratropium-Albuterol Nebulize 3 ml INHALATION RT-Q2H PRN 07/07/18 08/03/18 Rx [Duoneb 0.5 mg-3 mg/3 ml Soln] ampul.neb Ipratropium-Albuterol Nebulize 3 ml INHALATION RT-QID ampul.neb 07/07/18 08/03/18 Rx [Duoneb 0.5 mg-3 mg/3 ml Soln] Metoprolol Tartrate [Lopressor] 25 mg PO BID tab 07/07/18 08/03/18 Rx Pantoprazole [Protonix] 40 mg PO DAILY tablet.dr 07/07/18 08/03/18 Rx guaiFENesin [Mucinex] 600 mg PO Q12HR tablet.er 07/07/18 08/03/18 Rx Ammonium Lactate Lotion 1 applic TOPICAL BID 08/03/18 08/03/18 History [Lac-Hydrin 12% Lotion] INSULIN ASPART (NovoLOG) [NovoLOG See Protocol SQ ACHS 08/03/18 08/03/18 History (formulary)] Ondansetron [Zofran] 4 mg PO Q6H PRN 08/03/18 08/03/18 History Pravastatin Sodium [Pravachol] 20 mg PO DAILY 08/03/18 08/03/18 History Pro Stat 30ml 30 ml PO DAILY 08/03/18 08/03/18 History Allergies Allergy/AdvReac Type Severity Reaction Status Date / Time thallium-201 Allergy Intermediate Rash/Hives Verified 08/03/18 10:05 Sulfa (Sulfonamide AdvReac Severe low Verified 08/03/18 10:05 Antibiotics) hemoglobin aspirin AdvReac Mild blood in Verified 08/03/18 10:05 stool vancomycin AdvReac Rash/Hives Verified 08/03/18 10:05 steri strips AdvReac Mild blisters Uncoded 06/26/18 12:43 skin Surgical - Exam Vital Signs Temp Pulse Resp BP Pulse Ox 98.3 F 80 24 164/75 96 08/03/18 09:32 08/03/18 09:32 08/03/18 09:32 08/03/18 09:32 08/03/18 09:32 Results - Labs 08/03/18 10:38 08/03/18 10:38 Abnormal Lab Results - Last 24 Hours (Table) 08/03/18 08/03/18 08/03/18 Range/Units 10:38 10:38 10:38 WBC 13.4 H (3.8-10.6) k/uL Neutrophils # 11.7 H (1.3-7.7) k/uL Lymphocytes # 0.7 L (1.0-4.8) k/uL Sodium 136 L (137-145) mmol/L Chloride 93 L (98-107) mmol/L Carbon Dioxide 33 H (22-30) mmol/L BUN 26 H (7-17) mg/dL Glucose 168 H (74-99) mg/dL Plasma Lactic Acid Maulik 2.6 H* (0.7-2.0) mmol/L Urine Protein (Negative) 08/03/18 Range/Units 14:06 WBC (3.8-10.6) k/uL Neutrophils # (1.3-7.7) k/uL Lymphocytes # (1.0-4.8) k/uL Sodium (137-145) mmol/L Chloride (98-107) mmol/L Carbon Dioxide (22-30) mmol/L BUN (7-17) mg/dL Glucose (74-99) mg/dL Plasma Lactic Acid Maulik (0.7-2.0) mmol/L Urine Protein 1+ H (Negative) Diabetes panel 08/03/18 Range/Units 10:38 Sodium 136 L (137-145) mmol/L Potassium 3.6 (3.5-5.1) mmol/L Chloride 93 L (98-107) mmol/L Carbon Dioxide 33 H (22-30) mmol/L BUN 26 H (7-17) mg/dL Creatinine 0.96 (0.52-1.04) mg/dL Glucose 168 H (74-99) mg/dL Calcium 9.6 (8.4-10.2) mg/dL AST 26 (14-36) U/L ALT 28 (9-52) U/L Alkaline Phosphatase 102 (38-126) U/L Total Protein 6.6 (6.3-8.2) g/dL Albumin 3.8 (3.5-5.0) g/dL Calcium panel 08/03/18 Range/Units 10:38 Calcium 9.6 (8.4-10.2) mg/dL Albumin 3.8 (3.5-5.0) g/dL Pituitary panel 08/03/18 Range/Units 10:38 Sodium 136 L (137-145) mmol/L Potassium 3.6 (3.5-5.1) mmol/L Chloride 93 L (98-107) mmol/L Carbon Dioxide 33 H (22-30) mmol/L BUN 26 H (7-17) mg/dL Creatinine 0.96 (0.52-1.04) mg/dL Glucose 168 H (74-99) mg/dL Calcium 9.6 (8.4-10.2) mg/dL Adrenal panel 08/03/18 Range/Units 10:38 Sodium 136 L (137-145) mmol/L Potassium 3.6 (3.5-5.1) mmol/L Chloride 93 L (98-107) mmol/L Carbon Dioxide 33 H (22-30) mmol/L BUN 26 H (7-17) mg/dL Creatinine 0.96 (0.52-1.04) mg/dL Glucose 168 H (74-99) mg/dL Calcium 9.6 (8.4-10.2) mg/dL Total Bilirubin 0.9 (0.2-1.3) mg/dL AST 26 (14-36) U/L ALT 28 (9-52) U/L Alkaline Phosphatase 102 (38-126) U/L Total Protein 6.6 (6.3-8.2) g/dL Albumin 3.8 (3.5-5.0) g/dL
[2018-08-03 17:12] LABS: Glucose,Whole Blood 157 mg/dL (75-99)
[2018-08-03] MEDS: INSULIN ASPART (NovoLOG) 100 UNIT/ML VIAL SQ SCH ×2 (17:32→20:44)
[2018-08-03 20:24] LABS: Glucose,Whole Blood 116 mg/dL (75-99)
[2018-08-03] MEDS: MORPHINE SULFATE 4 MG/ML SYRINGE IV PRN (21:06)
[2018-08-03] MEDS ORDERED: IPRATROPIUM-ALBUTEROL 3 ML NEB INHALATION PRN (21:11)
[2018-08-03] MEDS: METOPROLOL TARTRATE 25 MG TAB PO SCH (23:03)
[2018-08-03] MEDS: AMIODARONE 200 MG TAB PO SCH (23:03)
[2018-08-03] MEDS: AMMONIUM LACTATE 12% LOTION 225 GM BTL TOPICAL SCH (23:03)
--- NOTE | 2018-08-04 00:13 | CONS ---
CONSULTATION DATE OF CONSULTATION: August 03, 2018 DATE OF SERVICE: August 03, 2018 PRESENTING COMPLAINT: Abdominal pain. HISTORY OF PRESENTING COMPLAINT: This is a pleasant 78-year-old patient who was transferred here from [facility] being followed by Dr. Kirby. The patient has been having progressive abdominal pain, started having nausea, vomiting. The last bowel movement was 3 days ago. There was no fever and chills. CT scan showed high-grade small-bowel obstruction. NG tube was placed. The patient felt some relief with that. Admitted for the same. The patient's chronic stable medical conditions include paroxysmal atrial fibrillation, COPD, hyperlipidemia, hypertension, sleep apnea, does not use CPAP, depression. The patient at the rehab facility. He is able to walk a few steps with a walker. The patient's 2 daughters are present at the bedside. REVIEW OF SYSTEMS: CONSTITUTIONAL: Tired. HEENT: NG tube in place. RESPIRATORY: Some shortness of breath. CARDIOVASCULAR: None. GASTROINTESTINAL: As above. GENITOURINARY: None. MUSCULOSKELETAL: Arthritic pain in the joints. DERMATOLOGICAL, HEMATOLOGIC, LYMPHATIC: none. PSYCHIATRY none. NEUROLOGICAL: None. PAST MEDICAL HISTORY: Atrial fibrillation, congestive heart failure, COPD, diabetes, hyperlipidemia, hypertension, osteoarthritis, sleep apnea, does not use CPAP, DJD, urinary incontinence. PAST SURGICAL HISTORY: Appendectomy, bariatric surgery, hysterectomy, tonsillectomy, right knee replacement x2, left knee replacement revision, left ankle ORIF, right trigger thumb surgery and bilateral cataracts. PSYCH HISTORY: Depression. SOCIAL HISTORY: No smoking, alcohol rarely. Currently a resident of [facility]. Otherwise lives with daughter. FAMILY HISTORY: DVT and PE. HOME MEDICATIONS: 1. Zofran 4 mg q.6h p.r.n. 2. DuoNeb 3 mL q.24h p.r.n. 3. NovoLog per sliding scale. 4. Lopressor 25 p.o. b.i.d. 5. DuoNeb q.i.d. 6. Cordarone 200 mg p.o. t.i.d. 7. Mucinex 600 mg p.o. q.12 h. 8. Eliquis 5 mg p.o. b.i.d. 9. Lac-Hydrin 12% topical b.i.d. 10.Protonix 40 mg p.o. daily. 11.Pravachol 20 mg p.o. daily. EKG tracing personally reviewed by me shows normal sinus rhythm. Chest x-ray film personally reviewed by me shows a portable film, some cardiomegaly. Lung lópez appear to be clear. CT scan of the abdomen and pelvis reveals high-grade small-bowel obstruction. ASSESSMENT: 1. High-grade small-bowel obstruction. The patient has seen some relief from an NG tube. 2. Morbid obesity BMI 41.7. 3. Paroxysmal atrial flutter fibrillation, currently in sinus rhythm. 4. Chronic obstructive pulmonary disease in an ex-smoker. 5. Diabetes mellitus type 2 on sliding scale insulin. 6. Primary osteoarthritis. 7. Obstructive sleep apnea does not use CPAP machine. 8. Morbid obesity BMI 41.7. 9. Moderate tricuspid regurgitation, nonrheumatic. 10.Hypertensive heart disease. 11.Severe secondary pulmonary hypertension. PLAN: The patient is getting IV fluids in place. Also on IV Zosyn. We will put the patient on sliding scale insulin. The patient is to take form of Lopressor, Cordarone, and we will hold off the suction for 2 hours following the medications. We will also put the patient on Lovenox for therapeutic dose until the patient can be switched back to Eliquis. I spoke to Dr. Goldstein who covers for Dr. Palm. He will resume the care of the patient tomorrow. Thank you Dr. Lara. MMNOHEMIL / MICKEYN: [id number] /
[2018-08-04] MEDS: PIPERACILLIN-TAZOBACTAM 3.375 GM in SODIUM CHLORIDE 0.9% 100 ML IVPB SCH ×4 (00:44→23:37)
[2018-08-04] MEDS: MORPHINE SULFATE 4 MG/ML SYRINGE IV PRN ×3 (02:10→14:30)
[2018-08-04] MEDS: IPRATROPIUM-ALBUTEROL 3 ML NEB INHALATION SCH ×4 (06:07→20:40)
[2018-08-04] MEDS: SODIUM CHLORIDE 0.9% 1,000 ML IV SCH ×2 (06:13→17:03)
[2018-08-04] MEDS: INSULIN ASPART (NovoLOG) 100 UNIT/ML VIAL SQ SCH ×4 (07:01→21:05)
[2018-08-04 07:05] LABS: Glucose,Whole Blood 126 mg/dL (75-99)
[2018-08-04] MEDS: AMIODARONE 200 MG TAB PO SCH ×3 (07:05→20:16)
[2018-08-04] MEDS: METOPROLOL TARTRATE 25 MG TAB PO SCH ×3 (07:05→20:16)
[2018-08-04] MEDS: AMMONIUM LACTATE 12% LOTION 225 GM BTL TOPICAL SCH ×2 (07:06→20:16)
[2018-08-04] MEDS: ONDANSETRON 4 MG/2 ML VIAL IVP PRN (07:13)
[2018-08-04 09:36] LABS: Basophils % (A) 0 %; Eosinophils # (A) 0.1 k/uL (0-0.7); Eosinophils % (A) 1 %; HCT 40.1 % (34.0-46.0); HGB 12.7 gm/dL (11.4-16.0); Lymphocytes # (A) 0.6 k/uL (1.0-4.8); Lymphocytes % (A) 5 %; MCH 28.4 pg (25.0-35.0); MCHC 31.7 g/dL (31.0-37.0); MCV 89.6 fL (80.0-100.0); Mean Platelet Volume 7.5; Monocytes # (A) 0.7 k/uL (0-1.0); Monocytes % (A) 6 %; Neutrophils # (A) 9.2 k/uL (1.3-7.7); Neutrophils % (A) 86 %; Platelet Count 387 k/uL (150-450); RBC 4.47 m/uL (3.80-5.40); RDW 15.1 % (11.5-15.5); WBC 10.6 k/uL (3.8-10.6)
[2018-08-04 09:48] LABS: Albumin 2.9 g/dL (3.5-5.0); Calcium 8.5 mg/dL (8.4-10.2); Potassium 3.6 mmol/L (3.5-5.1); Total Bilirubin 0.8 mg/dL (0.2-1.3); Total Protein 5.2 g/dL (6.3-8.2)
--- NOTE | 2018-08-04 11:11 | P.CONS ---
History of Present Illness - Reason for Consult Consult date: 08/04/18 medical management Requesting physician: Jose Lara - History of Present Illness This is a 78-year-old female patient of Dr. Kirby. Patient claimed residing at [facility] presented to the ER with complaints of right upper and right lower quadrant pain [address] completed showing high-grade small bowel traction proximal third to half level, transition point in the mid lower abdomen. Small bowel loops are dilated up to 4.2 cm and edematous with reactive mesenteric edema and mild ascites fluids. Prominent fecal distention of the rectum up to 6.7 cm. Moderate sized fat and ascites containing umbilical hernia measuring 3.7 cm wide. Patient was admitted to Dr. Lara. Patient was recently admitted to the prolonged hospital stay for acute hypoxic Estrace failure requiring intubation with severe sepsis with UTI and pneumonia and cellulitis. Patient also in A. fib and was started on anticoagulation during previous admission. Patient's additional medical history includes asthma, COPD, hyperlipidemia, essential hypertension, sleep apnea and depression. Patient does have NG tube in place which has provided some relief with abdominal discomfort. Patient's eliquis currently on hold due to possibility of surgery. Lovenox DVT prophylaxis has been added. Patient currently on Zosyn. At this time will consult cardiology services for preop clearance due to patient's extensive history including A. fib history. At this time patient is still complaining of some abdominal discomfort. Patient denies nausea vomiting. Patient denies diarrhea. Patient denies any urinary burning or frequency. Patient denies chest pain or shortness breath. Review of Systems Please refer to HPI otherwise unremarkable Past Medical History Past Medical History: Atrial Fibrillation, Atrial Flutter, Asthma, Heart Failure, COPD, Diabetes Mellitus, Hyperlipidemia, Hypertension, Osteoarthritis (OA), Pneumonia, Skin Disorder, Sleep Apnea/CPAP/BIPAP Additional Past Medical History / Comment(s): heart valve problem 1 year ago-not sure of name, no cpap used, anemia, "chocolate" color stool, degenerative arthritis, "Bite" swenson on arms-cause unknown, no current rx for diabetes-diet control, leakage of urine, uses walker History of Any Multi-Drug Resistant Organisms: MRSA Year Discovered:: 06/27/18 MDRO Source:: Right Leg Past Surgical History: Appendectomy, Bariatric Surgery, Hysterectomy, Joint Replacement, Orthopedic Surgery, Tonsillectomy Additional Past Surgical History / Comment(s): Picc line insertion/later removed, lap band, right knee replacement x 2 & left knee replaced with revision, L ganglion wirst surg., left ankle ORIF, right trigger thumb surg. juan cataracts Past Anesthesia/Blood Transfusion Reactions: Previous Problems w/ Anesthesia Additional Past Anesthesia/Blood Transfusion Reaction / Comm: difficulty waking up @times Past Psychological History: Depression Additional Psychological History / Comment(s): . Smoking Status: Never smoker Past Alcohol Use History: Rare Past Drug Use History: None Reported - Past Family History Daughter(s) Family Medical History: Deep Vein Thrombosis (DVT), Pulmonary Embolus Father Family Medical History: Cancer Mother Additional Family Medical History / Comment(s): Mother had hypotension. Medications and Allergies Home Medications Medication Instructions Recorded Confirmed Type Acetaminophen Tab [Tylenol] 500 mg PO Q6HR PRN tab 07/07/18 08/03/18 Rx Amiodarone [Cordarone] 200 mg PO TID tab 07/07/18 08/03/18 Rx Apixaban [Eliquis] 5 mg PO BID tab 07/07/18 08/03/18 Rx Ipratropium-Albuterol Nebulize 3 ml INHALATION RT-Q2H PRN 07/07/18 08/03/18 Rx [Duoneb 0.5 mg-3 mg/3 ml Soln] ampul.neb Ipratropium-Albuterol Nebulize 3 ml INHALATION RT-QID ampul.neb 07/07/18 08/03/18 Rx [Duoneb 0.5 mg-3 mg/3 ml Soln] Metoprolol Tartrate [Lopressor] 25 mg PO BID tab 07/07/18 08/03/18 Rx Pantoprazole [Protonix] 40 mg PO DAILY tablet.dr 07/07/18 08/03/18 Rx guaiFENesin [Mucinex] 600 mg PO Q12HR tablet.er 07/07/18 08/03/18 Rx Ammonium Lactate Lotion 1 applic TOPICAL BID 08/03/18 08/03/18 History [Lac-Hydrin 12% Lotion] INSULIN ASPART (NovoLOG) [NovoLOG See Protocol SQ ACHS 08/03/18 08/03/18 History (formulary)] Ondansetron [Zofran] 4 mg PO Q6H PRN 08/03/18 08/03/18 History Pravastatin Sodium [Pravachol] 20 mg PO DAILY 08/03/18 08/03/18 History Pro Stat 30ml 30 ml PO DAILY 08/03/18 08/03/18 History Allergies Allergy/AdvReac Type Severity Reaction Status Date / Time thallium-201 Allergy Intermediate Rash/Hives Verified 08/03/18 10:05 Sulfa (Sulfonamide AdvReac Severe low Verified 08/03/18 10:05 Antibiotics) hemoglobin aspirin AdvReac Mild blood in Verified 08/03/18 10:05 stool vancomycin AdvReac Rash/Hives Verified 08/03/18 10:05 steri strips AdvReac Mild blisters Uncoded 06/26/18 12:43 skin Physical Exam Vitals: Vital Signs Temp Pulse Pulse Resp BP BP Pulse Ox 08/04/18 08:24 99 08/04/18 06:15 88 08/04/18 06:07 97.9 F 85 77 18 149/73 97 08/03/18 22:50 98.1 F 85 18 133/68 96 08/03/18 15:17 98.7 F 88 20 137/66 92 L 08/03/18 12:42 81 18 136/73 98 08/03/18 11:30 98.1 F 76 22 127/67 98 Intake and Output 08/03/18 08/04/18 08/04/18 22:59 06:59 14:59 Output Total 50 800 Balance -50 -800 Output: Gastric Drainage 50 Urine 800 Other: Voiding Method Indwelling Catheter Indwelling Catheter # Bowel Movements 0 Head normocephalic Neck supple Lungs clear to auscultation bilaterally no wheezing or crackles Heart regular rate and rhythm S1-S2, no rub or gallop Abdomen is soft some tenderness to palpation. Extremities no edema Neuro alert and orientated to 3 Results CBC & Chem 7: 08/04/18 08:49 08/04/18 07:44 Labs: Abnormal Lab Results - Last 24 Hours (Table) 08/03/18 08/03/18 08/03/18 Range/Units 10:38 10:38 10:38 WBC 13.4 H (3.8-10.6) k/uL Neutrophils # 11.7 H (1.3-7.7) k/uL Lymphocytes # 0.7 L (1.0-4.8) k/uL Sodium 136 L (137-145) mmol/L Chloride 93 L (98-107) mmol/L Carbon Dioxide 33 H (22-30) mmol/L BUN 26 H (7-17) mg/dL Glucose 168 H (74-99) mg/dL POC Glucose (mg/dL) (75-99) mg/dL Plasma Lactic Acid Maulik 2.6 H* (0.7-2.0) mmol/L Total Protein (6.3-8.2) g/dL Albumin (3.5-5.0) g/dL Urine Protein (Negative) 08/03/18 08/03/18 08/03/18 Range/Units 14:06 16:59 20:19 WBC (3.8-10.6) k/uL Neutrophils # (1.3-7.7) k/uL Lymphocytes # (1.0-4.8) k/uL Sodium (137-145) mmol/L Chloride (98-107) mmol/L Carbon Dioxide (22-30) mmol/L BUN (7-17) mg/dL Glucose (74-99) mg/dL POC Glucose (mg/dL) 157 H 116 H (75-99) mg/dL Plasma Lactic Acid Maulik (0.7-2.0) mmol/L Total Protein (6.3-8.2) g/dL Albumin (3.5-5.0) g/dL Urine Protein 1+ H (Negative) 08/04/18 08/04/18 08/04/18 Range/Units 07:02 07:44 08:49 WBC (3.8-10.6) k/uL Neutrophils # 9.2 H (1.3-7.7) k/uL Lymphocytes # 0.6 L (1.0-4.8) k/uL Sodium (137-145) mmol/L Chloride (98-107) mmol/L Carbon Dioxide 32 H (22-30) mmol/L BUN 20 H (7-17) mg/dL Glucose 114 H (74-99) mg/dL POC Glucose (mg/dL) 126 H (75-99) mg/dL Plasma Lactic Acid Maulik (0.7-2.0) mmol/L Total Protein 5.2 L (6.3-8.2) g/dL Albumin 2.9 L (3.5-5.0) g/dL Urine Protein (Negative) Assessment and Plan Assessment: 1. High-grade small bowel obstruction. Repeat abdominal x-ray ordered per surgical services. Patient currently nothing by mouth NG tube in place 2. History of paroxysmal atrial flutter fibrillation. Patient is currently in normal sinus rhythm. Patient's eliquis currently on hold due to possible surgical intervention. 3. History of recent admission for sepsis requiring mechanical ventilation 4. History of COPD 6. History of diabetes mellitus type 2 patient maintained on sliding scale 7. History of arthritis 8. History of tricuspid regurg 9. History of essential hypertension 10. History of obstructive sleep apnea DVT prophylaxis Lovenox. GI prophylaxis Protonix Cardiology services have been consulted for cardiac clearance Repeat abdominal x-ray ordered per surgical services Thank you for this consultation we'll continue to follow patient closely throughout stay Time with Patient: Greater than 30 (Greater than 60% of the total time spent in counseling and coordination of care. I performed an examination of the patient and discussed their management with the Nurse Practitioner. I have reviewed the Nurse Practitioner's notes and agree with the documented findings and plan of care)
--- NOTE | 2018-08-04 11:15 | P.PN ---
Subjective Progress Note Date: 08/04/18 CHIEF COMPLAINT: Abdominal pain HISTORY OF PRESENT ILLNESS: Patient examined at the bedside this morning. Patient recently received pain medications and states her pain is tolerable at this time. However this morning she did complain of severe pain. NG tube to LIS with approximately 200cc of drainage in cannister. Patient denies passing flatus. No BM. Denies nausea. PHYSICAL EXAM: VITAL SIGNS: Reviewed. GENERAL: Well-developed in no acute distress. HEENT: No sclera icterus. Extraocular movements grossly intact. Moist buccal mucosa. Head is atraumatic, normocephalic. ABDOMEN: Obese. Soft. Nondistended. Tenderness upon palpation of right lower quadrant. Absent bowel sounds in all 4 quadrants. NEUROLOGIC: Alert and oriented. Cranial nerves II through XII grossly intact. ASSESSMENT: 1. Abdominal pain 2. High grade small bowel obstruction PLAN: 1. Continue NG to LIS 2. Continue IV fluids 3. Abdominal xray 4. Patient taking Eliquis prior to hospitalization. Patient will tentatively be scheduled for exploratory laparotomy with lysis of adhesions tomorrow Nurse practitioner note has been reviewed by physician. Signing provider agrees with the documented findings, assessment, and plan of care. Objective - Vital Signs Vital signs: Vital Signs Temp 97.9 F 08/04/18 06:07 Pulse 88 08/04/18 06:15 Resp 18 08/04/18 06:07 BP 149/73 08/04/18 06:07 Pulse Ox 99 08/04/18 08:24 Intake & Output 08/03/18 08/04/18 08/04/18 18:59 06:59 18:59 Output Total 850 Balance -850 Weight 110.223 kg Output: Gastric Drainage 50 Urine 800 Other: Voiding Method Indwelling Catheter Indwelling Catheter # Bowel Movements 0 - Labs CBC & Chem 7: 08/04/18 08:49 08/04/18 07:44 Labs: Abnormal Lab Results - Last 24 Hours (Table) 08/03/18 08/03/18 08/03/18 Range/Units 10:38 10:38 14:06 Neutrophils # (1.3-7.7) k/uL Lymphocytes # (1.0-4.8) k/uL Sodium 136 L (137-145) mmol/L Chloride 93 L (98-107) mmol/L Carbon Dioxide 33 H (22-30) mmol/L BUN 26 H (7-17) mg/dL Glucose 168 H (74-99) mg/dL POC Glucose (mg/dL) (75-99) mg/dL Plasma Lactic Acid Maulik 2.6 H* (0.7-2.0) mmol/L Total Protein (6.3-8.2) g/dL Albumin (3.5-5.0) g/dL Urine Protein 1+ H (Negative) 08/03/18 08/03/18 08/04/18 Range/Units 16:59 20:19 07:02 Neutrophils # (1.3-7.7) k/uL Lymphocytes # (1.0-4.8) k/uL Sodium (137-145) mmol/L Chloride (98-107) mmol/L Carbon Dioxide (22-30) mmol/L BUN (7-17) mg/dL Glucose (74-99) mg/dL POC Glucose (mg/dL) 157 H 116 H 126 H (75-99) mg/dL Plasma Lactic Acid Maulik (0.7-2.0) mmol/L Total Protein (6.3-8.2) g/dL Albumin (3.5-5.0) g/dL Urine Protein (Negative) 08/04/18 08/04/18 Range/Units 07:44 08:49 Neutrophils # 9.2 H (1.3-7.7) k/uL Lymphocytes # 0.6 L (1.0-4.8) k/uL Sodium (137-145) mmol/L Chloride (98-107) mmol/L Carbon Dioxide 32 H (22-30) mmol/L BUN 20 H (7-17) mg/dL Glucose 114 H (74-99) mg/dL POC Glucose (mg/dL) (75-99) mg/dL Plasma Lactic Acid Maulik (0.7-2.0) mmol/L Total Protein 5.2 L (6.3-8.2) g/dL Albumin 2.9 L (3.5-5.0) g/dL Urine Protein (Negative)
--- NOTE | 2018-08-04 11:45 | XR ---
EXAMINATION TYPE: XR abdomen 1V DATE OF EXAM: 08/04/2018 10:22 AM CLINICAL HISTORY: Small bowel obstruction. Follow-up exam. Abdominal pain. TECHNIQUE: Single supine KUB image of the abdomen is obtained. COMPARISON: 08/03/2018 CT. FINDINGS: Enteric tube has been placed coiling within the stomach. Gastric lap band similar in positi on to the prior study. Dilated loop of small bowel measures up to 4.5 cm. No other dilated loops of b owel are seen within the single view the abdomen. No gross evidence of pneumoperitoneum on the exam i s limited as the right hemidiaphragm is not elevated and this is a supine technique. Stool is noted w ithin the rectal vault. IMPRESSION: Solitary dilated loop of small bowel remains centralized within the abdomen and high-grad e small bowel obstruction. Enteric tube is satisfactorily placed and overall bowel dilatation has imp roved.
[2018-08-04] MEDS: ENOXAPARIN 40 MG/0.4 ML SYRINGE SQ SCH (12:17)
[2018-08-04 13:03] LABS: Glucose,Whole Blood 109 mg/dL (75-99)
--- NOTE | 2018-08-04 13:50 | P.CRDCN ---
History of Present Illness History of present illness: This is a pleasant 78-year-old female past medical history significant for paroxysmal atrial fibrillation on long-term anticoagulation with Eliquis status post successful cardioversion in June, hypertension, dyslipidemia, diabetes mellitus, COPD, pulmonary hypertension, mitral valve endocarditis, tricuspid regurgitation and morbid obesity. We have been asked to see her in c onsultation for preoperative evaluation. She presented to the emergency department from [facility] with complaints of nausea and constipation and abdominal discomfort 3 days. She was found to have high-grade small bowel obstruction. NG tube is in place and she is resting comfortably in bed. She denies chest pain, shortness of breath, dizziness or palpitations. She reports having persistent orthopnea that is no worse than at baseline she uses CPAP regularly secondary to obstructive sleep apnea. She significant lower extremity edema and erythema that she states is chronic and she is currently being treated with ointment at [facility]. On her last admission to the hospital June 2018 she suffered from acute hypoxic respiratory failure secondary to sepsis and underwent mechanical ventilation. EKG reveals sinus mechanism with no acute ST or T wave abnormalities noted. Chest x-ray reveals an NG tube below the diaphragm with no evidence of an acute cardiopulmonary process. CT of the abdomen and pelvis reveals a high-grade small bowel obstruction at the proximal third to half level with small bowel loops dilated up to 4.2 cm and edematous with reactive mesenteric edema and mild ascites. Mild fecal distention and moderate sized umbilical hernia. Laboratory data reviewed, WBC 10.6 down from 13.4 on admission, hemoglobin 12.7, platelets 387, sodium 138, potassium 3.6, creatinine 0.78, magnesium 1.8, cardiac enzymes negative 1, lactic acid on admission 2.6 down to 1.2. Current cardiac medications include pravastatin 20 mg daily, Eliquis 5 mg twice a day, amiodarone 200 mg 3 times a day, Lopressor 25 mg twice a day. Most recent echocardiogram obtained June 2018 reveals preserved left ventricular systolic function with ejection fraction 60-65%, moderate concentric left ventricular hypertrophy, moderately dilated left atrium, trace to mild aortic regurgitation, mild aortic stenosis with a mean gradient across the valve is 12 mmHg, severe mitral annular calcification, mild mitral regurgitation, moderate tricuspid regurgitation and severe pulmonary hypertension with an RVSP of 86 mmHg. At the time of my exam: CONSTITUTIONAL: Denies fever. Denies chills. EYES: Denies blurred vision. Denies vision changes. Denies eye pain. EARS, NOSE, MOUTH & THROAT: Denies headache. Denies sore throat. Denies ear pain. CARDIOVASCULAR: Denies chest pain. Denies shortness of breath. Denies orthopnea. Denies PND. Denies palpitations. RESPIRATORY: Denies cough. GASTROINTESTINAL: Complains of abdominal pain. Denies diarrhea. Complains of constipation. Complains of intermittent nausea. Denies vomiting. MUSCULOSKELETAL: Denies myalgias. INTEGUMENTARY: Denies pruitis. Denies rash. NEUROLOGIC: Denies numbness. Denies tingling. Denies weakness. PSYCHIATRIC: Denies anxiety. Denies depression. ENDOCRINE: Denies fatigue. Denies weight change. Denies polydipsia. Denies polyurina. GENITOURINARY: Denies burning, hematuria or urgency with micturation. HEMATOLOGIC: Denies history of anemia. Denies bleeding. Blood pressure 149/73 heart rate 77 afebrile maintaining oxygen saturation on n aly cannula GENERAL: This is a 78-year-old female in no apparent distress at the time of my examination. Morbidly obese. HEENT: Head is atraumatic, normocephalic. Pupils are equal, round. Sclerae anicteric. Conjunctivae are clear. Mucous membranes of the mouth are moist. Neck is supple. There is no jugular venous distention. No carotid bruit is heard. LUNGS: Clear to auscultation no wheezes, rales or rhonchi. No chest wall tenderness is noted on palpation or with deep breathing. Diminished bilaterally. HEART: Regular rate and rhythm with systolic ejection murmur at all listening p oints, no rubs or gallops. S1 and S2 heard. ABDOMEN: Soft, nontender. Bowel sounds are heard. No organomegaly noted. EXTREMITIES: Significant bilateral lower extremity edema and erythema with ulcerations noted, no calf tenderness. VASCULAR: Radial and dorsalis pedis pulses palpated, no evidence of clubbing. NEUROLOGIC: Patient is awake, alert and oriented x3. ASSESSMENT Acute small bowel obstruction, NG tube in place. Surgery recommended for tomorrow. Leukocytosis Lactic acidosis, resolved Paroxysmal atrial fibrillation on long-term anticoagulation, last dose of Eliquis was 08/03 in the a.m. History of diastolic heart failure Dyslipidemia Hypertension Diabetes mellitus COPD Pulmonary hypertension, severe, RVSP 86 mmHg Severe mitral calcification with mild mitral regurgitation Moderate tricuspid regurgitation Aortic stenosis, mean gradient 12 mmHg Recent history of bilateral lower extremity cellulitis positive for MRSA and Proteus Morbid obesity, BMI 41 PLAN Overall she is hemodynamically stable and in no overt heart failure. She has lower extremity edema suggestive of ongoing cellulitis. She has no symptoms of angina. She is an acceptable but high risk due to multiple co-morbid conditions and recent respiratory failure requiring mechanical ventilation. We recommend contin uing her current medications with the exception of eliquis. This should be resumed after surgery as soon as is possible per Dr. De La Rosa. She should go to Cardiac Step Down unit for initial post-operative recovery period. Decrease amiodarone to 200 mg BID and then reduce to daily dosing in the next 72 hours. We will continue to follow closely. Thank you kindly for this consultation. Nurse Practitioner note has been reviewed, I agree with a documented findings and plan of care. Patient was seen and examined. Past Medical History Past Medical History: Atrial Fibrillation, Atrial Flutter, Asthma, Heart Failure, COPD, Diabetes Mellitus, Hyperlipidemia, Hypertension, Osteoarthritis (OA), Pneumonia, Skin Disorder, Sleep Apnea/CPAP/BIPAP Additional Past Medical History / Comment(s): heart valve problem 1 year ago-not sure of name, no cpap used, anemia, "chocolate" color stool, degenerative arthritis, "Bite" swenson on arms-cause unknown, no current rx for diabetes-diet control, leakage of urine, uses walker History of Any Multi-Drug Resistant Organisms: MRSA Date of last positivie culture/infection: 06/27/18 MDRO Source:: Right Leg Past Surgical History: Appendectomy, Bariatric Surgery, Hysterectomy, Joint Replacement, Orthopedic Surgery, Tonsillectomy Additional Past Surgical History / Comment(s): Picc line insertion/later removed, lap band, right knee replacement x 2 & left knee replaced with revision, L ganglion wirst surg., left ankle ORIF, right trigger thumb surg. juan cataracts Past Anesthesia/Blood Transfusion Reactions: Previous Problems w/ Anesthesia Additional Past Anesthesia/Blood Transfusion Reaction / Comment(s): difficulty waking up @times Past Psychological History: Depression Additional Psychological History / Comment(s): . Smoking Status: Never smoker Past Alcohol Use History: Rare Past Drug Use History: None Reported - Past Family History Daughter(s) Family Medical History: Deep Vein Thrombosis (DVT), Pulmonary Embolus Father Family Medical History: Cancer Mother Additional Family Medical History / Comment(s): Mother had hypotension. Medications and Allergies Home Medications Medication Instructions Recorded Confirmed Type Acetaminophen Tab [Tylenol] 500 mg PO Q6HR PRN tab 07/07/18 08/03/18 Rx Amiodarone [Cordarone] 200 mg PO TID tab 07/07/18 08/03/18 Rx Apixaban [Eliquis] 5 mg PO BID tab 07/07/18 08/03/18 Rx Ipratropium-Albuterol Nebulize 3 ml INHALATION RT-Q2H PRN 07/07/18 08/03/18 Rx [Duoneb 0.5 mg-3 mg/3 ml Soln] ampul.neb Ipratropium-Albuterol Nebulize 3 ml INHALATION RT-QID ampul.neb 07/07/18 08/03/18 Rx [Duoneb 0.5 mg-3 mg/3 ml Soln] Metoprolol Tartrate [Lopressor] 25 mg PO BID tab 07/07/18 08/03/18 Rx Pantoprazole [Protonix] 40 mg PO DAILY tablet.dr 07/07/18 08/03/18 Rx guaiFENesin [Mucinex] 600 mg PO Q12HR tablet.er 07/07/18 08/03/18 Rx Ammonium Lactate Lotion 1 applic TOPICAL BID 08/03/18 08/03/18 History [Lac-Hydrin 12% Lotion] INSULIN ASPART (NovoLOG) [NovoLOG See Protocol SQ ACHS 08/03/18 08/03/18 History (formulary)] Ondansetron [Zofran] 4 mg PO Q6H PRN 08/03/18 08/03/18 History Pravastatin Sodium [Pravachol] 20 mg PO DAILY 08/03/18 08/03/18 History Pro Stat 30ml 30 ml PO DAILY 08/03/18 08/03/18 History Allergies Allergy/AdvReac Type Severity Reaction Status Date / Time thallium-201 Allergy Intermediate Rash/Hives Verified 08/03/18 10:05 Sulfa (Sulfonamide AdvReac Severe low Verified 08/03/18 10:05 Antibiotics) hemoglobin aspirin AdvReac Mild blood in Verified 08/03/18 10:05 stool vancomycin AdvReac Rash/Hives Verified 08/03/18 10:05 steri strips AdvReac Mild blisters Uncoded 06/26/18 12:43 skin Physical Exam Vitals: Vital Signs Temp Pulse Pulse Resp BP Pulse Ox 08/04/18 11:32 88 08/04/18 11:12 84 08/04/18 08:24 99 08/04/18 06:15 88 08/04/18 06:07 97.9 F 85 77 18 149/73 97 08/03/18 22:50 98.1 F 85 18 133/68 96 08/03/18 15:17 98.7 F 88 20 137/66 92 L Intake and Output 08/03/18 08/04/18 08/04/18 22:59 06:59 14:59 Output Total 50 800 Balance -50 -800 Output: Gastric Drainage 50 Urine 800 Other: Voiding Method Indwelling Catheter Indwelling Catheter # Bowel Movements 0 Results 08/04/18 08:49 08/04/18 07:44 Cardiac Enzymes 08/04/18 Range/Units 07:44 AST 22 (14-36) U/L CBC 08/04/18 Range/Units 08:49 WBC 10.6 (3.8-10.6) k/uL RBC 4.47 (3.80-5.40) m/uL Hgb 12.7 (11.4-16.0) gm/dL Hct 40.1 (34.0-46.0) % Plt Count 387 (150-450) k/uL Comprehensive Metabolic Panel 08/04/18 Range/Units 07:44 Sodium 138 (137-145) mmol/L Potassium 3.6 (3.5-5.1) mmol/L Chloride 100 (98-107) mmol/L Carbon Dioxide 32 H (22-30) mmol/L BUN 20 H (7-17) mg/dL Creatinine 0.78 (0.52-1.04) mg/dL Glucose 114 H (74-99) mg/dL Calcium 8.5 (8.4-10.2) mg/dL AST 22 (14-36) U/L ALT 30 (9-52) U/L Alkaline Phosphatase 71 (38-126) U/L Total Protein 5.2 L (6.3-8.2) g/dL Albumin 2.9 L (3.5-5.0) g/dL Current Medications Generic Name Dose Route Start Last Admin Trade Name Freq PRN Reason Stop Dose Admin Albuterol/Ipratropium 3 ml 08/04/18 08:00 08/04/18 11:12 Duoneb 0.5 Mg-3 Mg/3 Ml Soln INHALATION 3 ml RT-QID COURTNEY Administration Albuterol/Ipratropium 3 ml 08/03/18 21:11 Duoneb 0.5 Mg-3 Mg/3 Ml Soln INHALATION RT-Q2H PRN Shortness Of Breath Or Wheezing Amiodarone HCl 200 mg 08/03/18 21:15 08/04/18 07:25 Cordarone PO 200 mg BID COURTNEY Administration Enoxaparin Sodium 40 mg 08/04/18 10:15 08/04/18 12:17 Lovenox SQ 40 mg DAILY COURTNEY Administration Piperacillin Sod/Tazobactam 100 mls @ 25 mls/hr 08/04/18 00:00 08/04/18 07:06 Sod 3.375 gm/ Sodium Chloride IVPB 25 mls/hr Q8HR COURTNEY Administration Sodium Chloride 1,000 mls @ 75 mls/hr 08/03/18 14:00 08/04/18 06:13 Saline 0.9% IV Not Given .[id number] [facility] Insulin Aspart 0 unit 08/03/18 17:30 08/04/18 12:52 Novolog SQ Not Given ACHS [facility] Protocol Lactic Acid 1 applic 08/03/18 21:15 08/04/18 07:06 Lac-Hydrin 12% TOPICAL 1 applic BID [facility] Administration Metoprolol Tartrate 25 mg 08/03/18 21:15 08/04/18 07:25 Lopressor PO 25 mg BID COURTNEY Administration Morphine Sulfate 4 mg 08/03/18 13:55 08/04/18 07:24 Morphine Sulfate (Inj) IV 4 mg Q4HR PRN Administration Severe Pain Naloxone HCl 0.2 mg 08/03/18 13:55 Narcan IV Q2M PRN Opioid Reversal Ondansetron HCl 4 mg 08/03/18 13:55 08/04/18 07:13 Zofran IVP 4 mg Q8HR PRN Administration Nausea And Vomiting Pantoprazole Sodium 40 mg 08/05/18 09:00 Protonix IVP DAILY [facility]NEY Intake and Output 08/03/18 08/04/18 08/04/18 22:59 06:59 14:59 Output Total 50 800 Balance -50 -800 Output: Gastric Drainage 50 Urine 800 Other: Voiding Method Indwelling Catheter Indwelling Catheter # Bowel Movements 0 08/04/18 08:49 08/04/18 07:44
[2018-08-04 17:25] LABS: Glucose,Whole Blood 97 mg/dL (75-99)
[2018-08-04 21:04] LABS: Glucose,Whole Blood 105 mg/dL (75-99)
[2018-08-05 05:55] LABS: Glucose,Whole Blood 89 mg/dL (75-99)
[2018-08-05] MEDS: INSULIN ASPART (NovoLOG) 100 UNIT/ML VIAL SQ SCH ×4 (06:09→20:50)
[2018-08-05] MEDS: SODIUM CHLORIDE 0.9% 1,000 ML IV SCH ×2 (06:17→20:09)
[2018-08-05 07:02] LABS: Basophils # (A) 0.1 k/uL (0-0.2); Basophils % (A) 1 %; Eosinophils # (A) 0.1 k/uL (0-0.7); Eosinophils % (A) 1 %; HCT 37.2 % (34.0-46.0); HGB 11.4 gm/dL (11.4-16.0); Hypochromasia Slight; Lymphocytes # (A) 0.9 k/uL (1.0-4.8); Lymphocytes % (A) 8 %; MCH 27.7 pg (25.0-35.0); MCHC 30.7 g/dL (31.0-37.0); MCV 90.2 fL (80.0-100.0); Mean Platelet Volume 7.2; Monocytes # (A) 0.9 k/uL (0-1.0); Monocytes % (A) 8 %; Neutrophils # (A) 8.3 k/uL (1.3-7.7); Neutrophils % (A) 80 %; Platelet Count 351 k/uL (150-450); RBC 4.13 m/uL (3.80-5.40); RDW 15.2 % (11.5-15.5); WBC 10.4 k/uL (3.8-10.6)
[2018-08-05 07:24] LABS: ALT 18 U/L (9-52); AST 19 U/L (14-36); Albumin 2.5 g/dL (3.5-5.0); Alkaline Phosphatase 61 U/L (38-126); Anion Gap 1 mmol/L; Blood Urea Nitrogen 14 mg/dL (7-17); Calcium 8.5 mg/dL (8.4-10.2); Carbon Dioxide 36 mmol/L (22-30); Chloride 103 mmol/L (98-107); Glucose 79 mg/dL (74-99); Potassium 3.7 mmol/L (3.5-5.1); Sodium 140 mmol/L (137-145); Total Bilirubin 0.6 mg/dL (0.2-1.3); Total Protein 4.7 g/dL (6.3-8.2)
[2018-08-05] MEDS: IPRATROPIUM-ALBUTEROL 3 ML NEB INHALATION SCH ×4 (08:42→19:45)
[2018-08-05] MEDS: AMIODARONE 200 MG TAB PO SCH ×2 (08:49→20:50)
[2018-08-05] MEDS: PANTOPRAZOLE 40 MG/10 ML VIAL IVP SCH (08:49)
[2018-08-05] MEDS: METOPROLOL TARTRATE 25 MG TAB PO SCH ×2 (08:49→20:49)
[2018-08-05] MEDS: AMMONIUM LACTATE 12% LOTION 225 GM BTL TOPICAL SCH ×2 (08:50→20:21)
--- NOTE | 2018-08-05 09:19 | P.PN ---
<Cherelle Small Anjelica - Last Filed: 08/05/18 09:18> Subjective Progress Note Date: 08/05/18 CHIEF COMPLAINT: Abdominal pain HISTORY OF PRESENT ILLNESS: Patient examined at the bedside this morning. She complains of nausea this morning. NG to LIS. Minimal output. Denies flatus. Denies BM. She remains NPO. WBC 10.4. Hemoglobin 11.4. PHYSICAL EXAM: VITAL SIGNS: Reviewed. GENERAL: Well-developed in no acute distress. HEENT: No sclera icterus. Extraocular movements grossly intact. Moist buccal mucosa. Head is atraumatic, normocephalic. ABDOMEN: Obese. Soft. Nondistended. Tenderness upon palpation of right lower quadrant. Absent bowel sounds in all 4 quadrants. NEUROLOGIC: Alert and oriented. Cranial nerves II through XII grossly intact. ASSESSMENT: 1. Abdominal pain 2. High grade small bowel obstruction PLAN: 1. Continue NG to LIS 2. Continue IV fluids 3. Continue to hold Eliquis 4. Patient scheduled for exploratory laparotomy with lysis of adhesions today with Dr. Lara Nurse practitioner note has been reviewed by physician. Signing provider agrees with the documented findings, assessment, and plan of care. Objective - Vital Signs Vital signs: Vital Signs Temp 97.8 F 08/05/18 08:00 Pulse 70 08/05/18 08:50 Resp 18 08/05/18 08:00 BP 147/73 08/05/18 08:00 Pulse Ox 98 08/05/18 08:00 Intake & Output 08/04/18 08/05/18 08/05/18 18:59 06:59 18:59 Intake Total 0 0 Output Total 250 200 Balance -250 -200 0 Weight 104 kg Intake: Oral 0 0 Output: Gastric Drainage 100 Urine 150 200 Other: Voiding Method Indwelling Catheter Indwelling Catheter # Voids 1 - Labs CBC & Chem 7: 08/05/18 06:12 08/05/18 06:12 Labs: Abnormal Lab Results - Last 24 Hours (Table) 08/04/18 08/04/18 08/04/18 Range/Units 07:44 08:49 12:47 MCHC (31.0-37.0) g/dL Neutrophils # 9.2 H (1.3-7.7) k/uL Lymphocytes # 0.6 L (1.0-4.8) k/uL Carbon Dioxide 32 H (22-30) mmol/L BUN 20 H (7-17) mg/dL Glucose 114 H (74-99) mg/dL POC Glucose (mg/dL) 109 H (75-99) mg/dL Total Protein 5.2 L (6.3-8.2) g/dL Albumin 2.9 L (3.5-5.0) g/dL 08/04/18 08/05/18 08/05/18 Range/Units 21:02 06:12 06:12 MCHC 30.7 L (31.0-37.0) g/dL Neutrophils # 8.3 H (1.3-7.7) k/uL Lymphocytes # 0.9 L (1.0-4.8) k/uL Carbon Dioxide 36 H (22-30) mmol/L BUN (7-17) mg/dL Glucose (74-99) mg/dL POC Glucose (mg/dL) 105 H (75-99) mg/dL Total Protein 4.7 L (6.3-8.2) g/dL Albumin 2.5 L (3.5-5.0) g/dL Microbiology - Last 24 Hours (Table) 08/03/18 14:26 Blood Culture - Preliminary Blood No Growth after 24 hours <Jose Lara - Last Filed: 08/05/18 13:33> Objective - Vital Signs Vital signs: Vital Signs Temp 98.6 F 08/05/18 11:44 Pulse 66 08/05/18 12:00 Resp 18 08/05/18 12:00 BP 123/68 08/05/18 12:00 Pulse Ox 100 08/05/18 12:00 Intake & Output 08/04/18 08/05/18 08/05/18 18:59 06:59 18:59 Intake Total 0 0 Output Total 250 200 Balance -250 -200 0 Weight 104 kg Intake: Oral 0 0 Output: Gastric Drainage 100 Urine 150 200 Other: Voiding Method Indwelling Catheter Indwelling Catheter Indwelling Catheter # Voids 1 - Labs CBC & Chem 7: 08/05/18 06:12 08/05/18 06:12 Labs: Abnormal Lab Results - Last 24 Hours (Table) 08/04/18 08/05/18 08/05/18 Range/Units 21:02 06:12 06:12 MCHC 30.7 L (31.0-37.0) g/dL Neutrophils # 8.3 H (1.3-7.7) k/uL Lymphocytes # 0.9 L (1.0-4.8) k/uL Carbon Dioxide 36 H (22-30) mmol/L POC Glucose (mg/dL) 105 H (75-99) mg/dL Total Protein 4.7 L (6.3-8.2) g/dL Albumin 2.5 L (3.5-5.0) g/dL 08/05/18 Range/Units 12:46 MCHC (31.0-37.0) g/dL Neutrophils # (1.3-7.7) k/uL Lymphocytes # (1.0-4.8) k/uL Carbon Dioxide (22-30) mmol/L POC Glucose (mg/dL) 72 L (75-99) mg/dL Total Protein (6.3-8.2) g/dL Albumin (3.5-5.0) g/dL Microbiology - Last 24 Hours (Table) 08/03/18 14:26 Blood Culture - Preliminary Blood No Growth after 24 hours Assessment and Plan Assessment: we'll perform lysis of adhesions today for persistent small bowel obstruction
[2018-08-05] MEDS: PIPERACILLIN-TAZOBACTAM 3.375 GM in SODIUM CHLORIDE 0.9% 100 ML IVPB SCH ×3 (10:44→23:04)
--- NOTE | 2018-08-05 10:59 | P.CNPUL ---
History of Present Illness Consult date: 08/05/18 Reason for consult: dyspnea, hypoxemia Chief complaint: Abdominal pain History of present illness: This is a 78-year-old female who presented to the emergency department on 08/03/2018 complaining of abdominal pain, nausea, vomiting. The patient had been hospitalized one month ago with sepsis and respiratory failure, UTI, pneumonia. She did require intubation at that time. She also had atrial fibrillation and was started on anticoagulation in the form of Eliquis. The patient was discharged to [facility]. On computed tomography scan done in the emergency department the patient was found to have high-grade small bowel obstruction. Chest x-ray done on 08/03/2018 shows elevation of right hemidiaphragm, atelectasis. The patient was previously seen by Dr. Piper, whom we are covering for. The patient has a known history of asthma and COPD. She also has a history of paroxysmal atrial fibrillation, sleep apnea, congestive heart failure. The patient states she does not use her CPAP. She states she cannot tolerate it. The patient is complaining of some shortness of breath today. She is on 2L NC. She states she has been on oxygen since her discharge. The patient complains of continued abdomninal pain, she is passing flatus. She has an NGT in place and states it is giving her a sore throat and she can't swallow. Review of Systems All systems: negative Past Medical History Past Medical History: Atrial Fibrillation, Atrial Flutter, Asthma, Heart Failure, COPD, Diabetes Mellitus, Hyperlipidemia, Hypertension, Osteoarthritis (OA), Pneumonia, Skin Disorder, Sleep Apnea/CPAP/BIPAP Additional Past Medical History / Comment(s): heart valve problem 1 year ago-not sure of name, no cpap used, anemia, "chocolate" color stool, degenerative arthritis, "Bite" swenson on arms-cause unknown, no current rx for diabetes-diet control, leakage of urine, uses walker History of Any Multi-Drug Resistant Organisms: MRSA Date of last positivie culture/infection: 06/27/18 MDRO Source:: Right Leg Past Surgical History: Appendectomy, Bariatric Surgery, Hysterectomy, Joint Replacement, Orthopedic Surgery, Tonsillectomy Additional Past Surgical History / Comment(s): Picc line insertion/later removed, lap band, right knee replacement x 2 & left knee replaced with revision, L ganglion wirst surg., left ankle ORIF, right trigger thumb surg. juan cataracts Past Anesthesia/Blood Transfusion Reactions: Previous Problems w/ Anesthesia Additional Past Anesthesia/Blood Transfusion Reaction / Comment(s): difficulty waking up @times Past Psychological History: Depression Additional Psychological History / Comment(s): . Smoking Status: Never smoker Past Alcohol Use History: Rare Past Drug Use History: None Reported - Past Family History Daughter(s) Family Medical History: Deep Vein Thrombosis (DVT), Pulmonary Embolus Father Family Medical History: Cancer Mother Additional Family Medical History / Comment(s): Mother had hypotension. Medications and Allergies Home Medications Medication Instructions Recorded Confirmed Type Acetaminophen Tab [Tylenol] 500 mg PO Q6HR PRN tab 07/07/18 08/03/18 Rx Amiodarone [Cordarone] 200 mg PO TID tab 07/07/18 08/03/18 Rx Apixaban [Eliquis] 5 mg PO BID tab 07/07/18 08/03/18 Rx Ipratropium-Albuterol Nebulize 3 ml INHALATION RT-Q2H PRN 07/07/18 08/03/18 Rx [Duoneb 0.5 mg-3 mg/3 ml Soln] ampul.neb Ipratropium-Albuterol Nebulize 3 ml INHALATION RT-QID ampul.neb 07/07/18 08/03/18 Rx [Duoneb 0.5 mg-3 mg/3 ml Soln] Metoprolol Tartrate [Lopressor] 25 mg PO BID tab 07/07/18 08/03/18 Rx Pantoprazole [Protonix] 40 mg PO DAILY tablet.dr 07/07/18 08/03/18 Rx guaiFENesin [Mucinex] 600 mg PO Q12HR tablet.er 07/07/18 08/03/18 Rx Ammonium Lactate Lotion 1 applic TOPICAL BID 08/03/18 08/03/18 History [Lac-Hydrin 12% Lotion] INSULIN ASPART (NovoLOG) [NovoLOG See Protocol SQ ACHS 08/03/18 08/03/18 History (formulary)] Ondansetron [Zofran] 4 mg PO Q6H PRN 08/03/18 08/03/18 History Pravastatin Sodium [Pravachol] 20 mg PO DAILY 08/03/18 08/03/18 History Pro Stat 30ml 30 ml PO DAILY 08/03/18 08/03/18 History Allergies Allergy/AdvReac Type Severity Reaction Status Date / Time thallium-201 Allergy Intermediate Rash/Hives Verified 08/03/18 10:05 Sulfa (Sulfonamide AdvReac Severe low Verified 08/03/18 10:05 Antibiotics) hemoglobin aspirin AdvReac Mild blood in Verified 08/03/18 10:05 stool vancomycin AdvReac Rash/Hives Verified 08/03/18 10:05 steri strips AdvReac Mild blisters Uncoded 06/26/18 12:43 skin Physical Exam Osteopathic Statement: *. No significant issues noted on an osteopathic structural exam other than those noted in the History and Physical/Consult. Vitals: Vital Signs Temp Pulse Pulse Resp BP Pulse Ox 08/05/18 09:56 73 18 08/05/18 08:50 70 08/05/18 08:42 70 08/05/18 08:00 97.8 F 73 18 147/73 98 08/05/18 04:00 98.0 F 68 18 131/70 97 08/05/18 00:00 98.1 F 69 16 113/60 97 08/04/18 20:50 75 08/04/18 20:41 75 08/04/18 20:00 97.8 F 84 16 131/74 100 08/04/18 17:14 75 08/04/18 17:07 75 08/04/18 16:30 97.2 F L 74 18 125/86 97 08/04/18 14:30 97 F L 75 18 124/86 98 08/04/18 11:32 88 08/04/18 11:12 84 Intake and Output 08/04/18 08/05/18 08/05/18 22:59 06:59 14:59 Intake Total 0 0 Output Total 200 Balance 0 -200 0 Intake: Oral 0 0 Output: Urine 200 Other: Voiding Method Indwelling Catheter Indwelling Catheter Indwelling Catheter # Voids 1 Weight 104 kg Gen.: Patient is alert and oriented 3, no acute distress, obese Cardiovascular: Irregular rate and rhythm, S1/S2 Lungs: Diminished breath sounds at the bases with scattered crackles Abdomen: Soft mildly tender to palpation Extremities: + Edema, chronic venous stasis, stasis dermatitis Results - Laboratory Findings CBC and BMP: 08/05/18 06:12 08/05/18 06:12 Abnormal lab findings: Abnormal Labs 08/03/18 08/03/18 08/03/18 10:38 10:38 10:38 WBC 13.4 H MCHC Neutrophils # 11.7 H Lymphocytes # 0.7 L Sodium 136 L Chloride 93 L Carbon Dioxide 33 H BUN 26 H Glucose 168 H POC Glucose (mg/dL) Plasma Lactic Acid Maulik 2.6 H* Total Protein Albumin Urine Protein 08/03/18 08/03/18 08/03/18 14:06 16:59 20:19 WBC MCHC Neutrophils # Lymphocytes # Sodium Chloride Carbon Dioxide BUN Glucose POC Glucose (mg/dL) 157 H 116 H Plasma Lactic Acid Maulik Total Protein Albumin Urine Protein 1+ H 08/04/18 08/04/18 08/04/18 07:02 07:44 08:49 WBC MCHC Neutrophils # 9.2 H Lymphocytes # 0.6 L Sodium Chloride Carbon Dioxide 32 H BUN 20 H Glucose 114 H POC Glucose (mg/dL) 126 H Plasma Lactic Acid Maulik Total Protein 5.2 L Albumin 2.9 L Urine Protein 08/04/18 08/04/18 08/05/18 12:47 21:02 06:12 WBC MCHC Neutrophils # Lymphocytes # Sodium Chloride Carbon Dioxide 36 H BUN Glucose POC Glucose (mg/dL) 109 H 105 H Plasma Lactic Acid Maulik Total Protein 4.7 L Albumin 2.5 L Urine Protein 08/05/18 06:12 WBC MCHC 30.7 L Neutrophils # 8.3 H Lymphocytes # 0.9 L Sodium Chloride Carbon Dioxide BUN Glucose POC Glucose (mg/dL) Plasma Lactic Acid Maulik Total Protein Albumin Urine Protein - Diagnostic Findings Chest x-ray: report reviewed, image reviewed Assessment and Plan Assessment: Acute hypoxic respiratory failure Abdominal pain with high grade small bowel obstruction Chronic persistent severe asthma Leukocytosis, resolved Lactic acidosis, resolved COPD CHF, diastolic Obstructive sleep apnea, noncompliant with CPAP Paroxysmal Atrial fibrillation rate controlled Recent hospitalization with severe sepsis and requiring mechanical ventilation Morbid obesity Hypertension Moderate PCM Hypertensive heart disease Dyslipidemia DM2 Severe pulmonary hypertension with RVSP 86 mmHg Valvular heart disease Recent LE cellulitis, MRSA and proteus Patient is acceptable but high risk for proposed surgery due to multiple co- morbid conditions and recent hospitalization requiring mechanical ventilation, generalized debility. Check CXR now Optimize fluid status Monitor I/O, urine output Duonebs, Add Pulmicort and Singulair Agree with cardiology, plan for step down unit after surgery Eliquis on hold for surgery, resume once ok with surgery team Patient may benefit from bipap post-surgery given her history of DONNA, PH, COPD/Asthma GI and DVT prophylaxis, IS and pulmonary hygiene Thank you for this consultation. Patient is seen and examined covering for Dr. Piper We will continue to follow along.
--- NOTE | 2018-08-05 11:04 | P.PN ---
Subjective Progress Note Date: 08/05/18 This is a 78-year-old female patient of Dr. Kirby. Patient claimed residing at [facility] presented to the ER with complaints of right upper and right lower quadrant pain [address] completed showing high-grade small bowel traction proximal third to half level, transition point in the mid lower abdomen. Small bowel loops are dilated up to 4.2 cm and edematous with reactive mesenteric edema and mild ascites fluids. Prominent fecal distention of the rectum up to 6.7 cm. Moderate sized fat and ascites containing umbilical hernia measuring 3.7 cm wide. Patient was admitted to Dr. Lara. Patient was recently admitted to the prolonged hospital stay for acute hypoxic Estrace failure requiring intubation with severe sepsis with UTI and pneumonia and cellulitis. Patient also in A. fib and was started on anticoagulation during previous admission. Patient's additional medical history includes asthma, COPD, hyperlipidemia, essential hypertension, sleep apnea and depression. Patient does have NG tube in place which has provided some relief with abdominal discomfort. Patient's eliquis currently on hold due to possibility of surgery. Lovenox DVT prophylaxis has been added. Patient currently on Zosyn. At this time will consult cardiology services for preop clearance due to patient's extensive history including A. fib history. At this time patient is still c omplaining of some abdominal discomfort. Patient denies nausea vomiting. Patient denies diarrhea. Patient denies any urinary burning or frequency. Patient denies chest pain or shortness breath. On 08/05/2018 patient is alert and oriented 3 resting comfortably in bed. Discussed case with surgical services. Patient will likely have expiratory lap today with Dr. Lara. He was evaluated by cardiology services. Patient's home dose of eliquis currently on hold due to surgical intervention. Due to patient previously requiring mechanical ventilation within the past [address] Sloan for pulmonary care. Patient also having chronic lower extremity cellulitis. Patient was positive for MRSA during previous admission and treated with antibiotics. Will consult Dr. Kapadia at this time. At this time patient is still having some abdominal discomfort. NG remains in p lace. Patient denies chest pain or shortness of breath. Patient denies any nausea vomiting or diarrhea. Objective - Vital Signs Vital signs: Vital Signs Temp 97.8 F 08/05/18 08:00 Pulse 73 08/05/18 09:56 Resp 18 03/26/19 09:56 BP 147/73 08/05/18 08:00 Pulse Ox 98 08/05/18 08:00 Intake & Output 08/04/18 08/05/18 08/05/18 18:59 06:59 18:59 Intake Total 0 0 Output Total 250 200 Balance -250 -200 0 Weight 104 kg Intake: Oral 0 0 Output: Gastric Drainage 100 Urine 150 200 Other: Voiding Method Indwelling Catheter Indwelling Catheter Indwelling Catheter # Voids 1 - Exam Head normocephalic Neck supple Lungs clear to auscultation bilaterally no wheezing or crackles Heart regular rate and rhythm S1-S2, no rub or gallop Abdomen is soft some tenderness to palpation. Extremities bilateral lower extremity erythema Neuro alert and orientated to 3 - Labs CBC & Chem 7: 08/05/18 06:12 08/05/18 06:12 Labs: Abnormal Lab Results - Last 24 Hours (Table) 08/04/18 08/04/18 08/05/18 Range/Units 12:47 21:02 06:12 MCHC (31.0-37.0) g/dL Neutrophils # (1.3-7.7) k/uL Lymphocytes # (1.0-4.8) k/uL Carbon Dioxide 36 H (22-30) mmol/L POC Glucose (mg/dL) 109 H 105 H (75-99) mg/dL Total Protein 4.7 L (6.3-8.2) g/dL Albumin 2.5 L (3.5-5.0) g/dL 08/05/18 Range/Units 06:12 MCHC 30.7 L (31.0-37.0) g/dL Neutrophils # 8.3 H (1.3-7.7) k/uL Lymphocytes # 0.9 L (1.0-4.8) k/uL Carbon Dioxide (22-30) mmol/L POC Glucose (mg/dL) (75-99) mg/dL Total Protein (6.3-8.2) g/dL Albumin (3.5-5.0) g/dL Microbiology - Last 24 Hours (Table) 08/03/18 14:26 Blood Culture - Preliminary Blood No Growth after 24 hours Assessment and Plan Assessment: 1. High-grade small bowel obstruction. Repeat abdominal x-ray ordered per surgical services. Patient currently nothing by mouth NG tube in place. Repeat abdominal x-ray completed showing solitary dilated loop of small bowel remain centralized within the abdomen high-grade small bowel obstruction. Discussed case with surgical nurse practitioner. Planning for explatory lap today with Dr. Lara. 2. History of paroxysmal atrial flutter fibrillation. Patient is currently in normal sinus rhythm. Patient's eliquis currently on hold due to possible surgical intervention. she was evaluated by cardiology services. Per cardiology patient is high risk due to multiple comorbid conditions. Eliquis currently on hold and will be resumed postoperatively per surgical services 3. History of recent admission for sepsis requiring mechanical ventilation.Dr. Garrett has been consulted for pulmonary care due to recent intubation 4. History of COPD 6. History of diabetes mellitus type 2 patient maintained on sliding scale 7. History of arthritis 8. History of tricuspid regurg 9. History of essential hypertension 10. History of obstructive sleep apnea 11. Bilateral lower extremity erythema. Previous history of cellulitis with MRSA. Will consult Dr. Kapadia at this time due to increase lower extremity redness. Patient currently on Zosyn DVT prophylaxis Lovenox. GI prophylaxis Protonix Thank you for this consultation we'll continue to follow patient closely throughout stay I performed an examination of the patient and discussed their management with the Nurse Practitioner. I have reviewed the Nurse Practitioner's notes and agree with the documented findings and plan of care
--- NOTE | 2018-08-05 11:37 | XR ---
EXAMINATION TYPE: XR chest 1V portable DATE OF EXAM: 08/05/2018 COMPARISON: 08/03/2018 HISTORY: Shortness of breath TECHNIQUE: Single frontal view of the chest is obtained. FINDINGS: NG tube is seen coiled in the left upper quadrant. There is bilateral infiltrate and small effusion. No sizable pneumothorax. Limited inspiration. Heart size stable. Atherosclerotic change ao rta. IMPRESSION: Bilateral consolidation and pleural effusion stable.
[2018-08-05] MEDS ORDERED: IV FLUID CONTINUATION 1,000 ML IV ONE (11:39)
[2018-08-05 11:43] LABS: Glucose,Whole Blood 76 mg/dL (75-99)
[2018-08-05 12:03] LABS: Glucose,Whole Blood 76 mg/dL (75-99)
[2018-08-05] MEDS: ENOXAPARIN 40 MG/0.4 ML SYRINGE SQ SCH ×3 (12:49→16:07)
[2018-08-05 12:54] LABS: Glucose,Whole Blood 72 mg/dL (75-99)
[2018-08-05] MEDS ORDERED: ROCURONIUM BROMIDE 10 MG/ML 10 ML VIAL IV ONE (14:01)
[2018-08-05] MEDS ORDERED: SUCCINYLCHOLINE CHLORIDE 100 MG/5 ML SYR IV ONE (14:01)
[2018-08-05] MEDS ORDERED: NEOSTIGMINE 1 MG/ML 10 ML VIAL ONE (14:01)
[2018-08-05] MEDS ORDERED: fentaNYL (PF) 50 MCG/ML 2 ML AMP ONE (14:01)
[2018-08-05] MEDS ORDERED: PROPOFOL 10 MG/ML 20 ML VIAL IV ONE (14:01)
[2018-08-05] MEDS ORDERED: MIDAZOLAM 2 MG/2 ML VIAL ONE (14:01)
[2018-08-05] MEDS ORDERED: GLYCOPYRROLATE 0.2 MG/ML 2 ML VIAL ONE (14:01)
[2018-08-05] MEDS ORDERED: LIDOCAINE 1% INJ 10MG/ML (20 ML MDV) ONE (14:01)
[2018-08-05] MEDS ORDERED: PHENYLEPHRINE-0.9% NACL SYG 1 MG/10 ML SYRINGE ONE (14:01)
--- NOTE | 2018-08-05 14:49 | P.OP ---
Date of Procedure: 08/05/18 Preoperative Diagnosis: Small bowel obstruction fraction Postoperative Diagnosis: Small bowel obstruction Procedure(s) Performed: Exploratory laparotomy Lysis of adhesions Repair of incarcerated ventral hernia Omentectomy Anesthesia: MARY Surgeon: Jose Lara Estimated Blood Loss (ml): 10 Pathology: other (Incarcerated omentum/hernia) Condition: stable Disposition: PACU Description of Procedure: The patient's placed in the operative table in the supine position. She re ceived general anesthesia. Her abdomen was prepped and draped usual sterile fashion. Patient had a ventral hernia located near the umbilicus. Using a 10 blade the skin was incised. Then using left cautery the subcutaneous tissue divided. The abdomen was entered. There was incarcerated omentum within the hernia. The hernia sac was opened. The incarcerated omentum was then transected using the Enseal device. The specimen sent to pathology. There appeared to be a rotational bowel associated with the hernia. The adhesions were lysed. This appeared to be the site of the bowel obstruction. Once the adhesions were lysed. The small bowel was run from the ligament Treitz to the terminal ileum and ileocecal valve. There is no other evidence of tension. The colon did not appear to be dilated. There was stool within the colon. This point the abdomen was irrigated. There is no bleeding seen. The fascia was closed with looped #1 PDS suture. Skin was closed kaleigh. Patient top she will was sent to recovery in stable condition.
[2018-08-05 15:14] LABS: Glucose,Whole Blood 78 mg/dL (75-99)
[2018-08-05] MEDS: fentaNYL (PF) 50 MCG/ML 2 ML AMP IVP ONE ×2 (15:22→15:32)
[2018-08-05] MEDS ORDERED: ONDANSETRON 4 MG/2 ML VIAL IVP ONE (15:26)
[2018-08-05] MEDS ORDERED: SODIUM CHLORIDE 0.9% 1,000 ML IV ONE (15:33)
[2018-08-05] MEDS: LABETALOL 5 MG/ML VIAL MDV IVP ONE ×2 (15:44→15:54)
[2018-08-05] MEDS ORDERED: HYDROmorphone 1 MG/ML 1 ML SYRINGE IVP ONE (15:58)
[2018-08-05 16:30] LABS: Glucose,Whole Blood 73 mg/dL (75-99)
[2018-08-05] MEDS: HYDROmorphone 1 MG/ML 1 ML SYRINGE IVP PRN ×2 (16:38→20:17)
[2018-08-05] MEDS: BUDESONIDE 0.5 MG/2 ML NEBU INHALATION SCH (19:45)
[2018-08-05 20:46] LABS: Glucose,Whole Blood 99 mg/dL (75-99)
[2018-08-05] MEDS: MONTELUKAST 10 MG TAB PO SCH (20:50)
[2018-08-06] MEDS: HYDROmorphone 1 MG/ML 1 ML SYRINGE IVP PRN ×2 (03:20→06:52)
[2018-08-06] MEDS: SODIUM CHLORIDE 0.9% 1,000 ML IV SCH (03:23)
[2018-08-06 05:45] LABS: Glucose,Whole Blood 91 mg/dL (75-99)
[2018-08-06] MEDS: IPRATROPIUM-ALBUTEROL 3 ML NEB INHALATION SCH ×4 (05:49→19:04)
[2018-08-06] MEDS: BUDESONIDE 0.5 MG/2 ML NEBU INHALATION SCH ×2 (05:49→19:04)
[2018-08-06] MEDS: INSULIN ASPART (NovoLOG) 100 UNIT/ML VIAL SQ SCH ×3 (05:50→16:48)
[2018-08-06 06:43] LABS: Basophils # (A) 0.1 k/uL (0-0.2); Basophils % (A) 1 %; Eosinophils # (A) 0.1 k/uL (0-0.7); Eosinophils % (A) 0 %; HCT 38.8 % (34.0-46.0); HGB 11.5 gm/dL (11.4-16.0); Hypochromasia Slight; Lymphocytes # (A) 0.7 k/uL (1.0-4.8); Lymphocytes % (A) 6 %; MCH 27.2 pg (25.0-35.0); MCHC 29.7 g/dL (31.0-37.0); MCV 91.5 fL (80.0-100.0); Mean Platelet Volume 7.2; Monocytes # (A) 0.9 k/uL (0-1.0); Monocytes % (A) 7 %; Neutrophils # (A) 10.4 k/uL (1.3-7.7); Neutrophils % (A) 85 %; Platelet Count 378 k/uL (150-450); RBC 4.24 m/uL (3.80-5.40); RDW 15.1 % (11.5-15.5); WBC 12.2 k/uL (3.8-10.6)
[2018-08-06 06:54] LABS: ALT 22 U/L (9-52); AST 18 U/L (14-36); Albumin 2.4 g/dL (3.5-5.0); Alkaline Phosphatase 53 U/L (38-126); Anion Gap 3 mmol/L; Blood Urea Nitrogen 13 mg/dL (7-17); Carbon Dioxide 31 mmol/L (22-30); Chloride 106 mmol/L (98-107); Glucose 76 mg/dL (74-99); Potassium 3.9 mmol/L (3.5-5.1); Sodium 140 mmol/L (137-145); Total Bilirubin 0.8 mg/dL (0.2-1.3); Total Protein 4.5 g/dL (6.3-8.2)
--- NOTE | 2018-08-06 07:03 | CONS ---
CONSULTATION DATE OF SERVICE: 08/05/2018 REASON FOR CONSULTATION: Lower extremity cellulitis with history of MRSA infection. HISTORY OF PRESENT ILLNESS: The patient is a 78-year-old female presenting to the ER at [facility] on 08/03/2018 with chief complaints of nausea, vomiting and abdominal pain. Her symptoms have been going on for 3 days prior to presentation to hospital. The patient's pain has been mostly crampy in the mid abdominal area with severity of almost to 5 7 out of 10 and no radiation with associated nausea and vomiting and no bowel movement for 3 days. With these symptoms, the patient has been evaluated by the ER physician. The patient did have CT of the abdomen and pelvis which did show mid abdominal high-grade small-bowel obstruction. Patient on admission was afebrile and has been afebrile throughout her hospital stay. The patient did have an elevated white count 13.4, subsequently her white count has normalized. The patient's urine has been negative. The patient blood culture has been negative so far. The patient was treated medically for her small bowel obstruction, however, did not improve hence the patient was taken to the OR today and the patient is status post laparotomy with lysis of adhesions and repair of incarcerated ventral hernia and partial omentectomy. No evidence of any bowel perforation. She noticed to have significant swelling in her legs, hence, that prompted this infectious disease consultation. However, the patient's predominant symptoms has been abdominal pain. REVIEW OF SYSTEMS: Positive points have been mentioned in HPI. Rest of the systems are negative. PAST MEDICAL HISTORY: Atrial fibrillation, heart failure, COPD, diabetes mellitus, hypertension, hyperlipidemia, osteoarthritis, pneumonia, sleep apnea, lower extremity cellulitis, MRSA. PAST SURGICAL HISTORY: Appendectomy, bariatric surgery, hysterectomy, tonsillectomy, PICC line placement subsequent removal and left ankle ORIF. SOCIAL HISTORY: Remote history of smoking. Rarely drinks. No drug use. Currently a retirement resident. FAMILY HISTORY: Father history of cancer. ALLERGIES: SULFA and VANCOMYCIN. MEDICATION: Medications include the patient is currently on Zosyn 3.375 grams q.8 hours. The patient is on DuoNeb, amiodarone, Pulmicort, Lovenox, Dilaudid, NovoLog, Lopressor, Singulair, morphine sulfate, Narcan, Zofran, Protonix. PHYSICAL EXAMINATION: On examination, her blood pressure is 135/85 with a pulse of 78, temperature 98.3. She is 94% on 3 L nasal cannula. General description is a elderly female, lying in bed in no distress. No tachypnea or accessory muscle of respiration use. HEENT examination shows no pallor or scleral icterus. Oral mucous membrane is dry. No pharyngeal erythema or thrush. NECK: Trachea central. No thyromegaly. LUNGS: Unlabored breathing, clear to auscultation anteriorly. No wheeze or crackle. HEART: S1, S2. Regular rate and rhythm. ABDOMEN: Soft, mildly distended, mildly tender. No guarding or rigidity. No organomegaly. EXTREMITIES: She did have diffuse swelling in both legs with minimal erythema. Currently with no open wound or any drainage. NEUROLOGICALLY: Patient is awake, alert, oriented x3. Mood and affect normal. LABS: Hemoglobin 11.4, white count 10.4, admission white count was 13.4. BUN of 14, creatinine 0.63. Electrolytes has been normal. Liver enzymes are normal. UA has been negative. CT report as mentioned above. DIAGNOSTIC IMPRESSION AND PLAN: 1. Patient admitted to the hospital abdominal pain, nausea, vomiting. This patient has been diagnosed with a small-bowel obstruction failing medical therapy, status post laparotomy with evidence of incarcerated ventral hernia, status post omentectomy and repair of the hernia with no evidence of any bowel perforation. The patient's white count did respond to the Zosyn, more likely enteric gram-negative pathogen. 2. Patient did have some diffuse swelling and redness in the leg could be more likely a streptococcal cellulitis. Clinically doubt methicillin-resistant Staphylococcus aureus infection. 3. Patient with multiple antibiotic allergies that limit the number of antibiotics that could be safe to use. PLAN: 1. Zosyn 3.375 grams q.8 hours, continue perioperatively. 2. Chau wrap to the to the below-knee and sherron the area of redness. 3. We will follow up on clinical condition and adjust her medications further if needed. Thank you for this consultation. Will follow this patient along with you. MMODL / IJN: [id number] /
[2018-08-06] MEDS: METOPROLOL TARTRATE 25 MG TAB PO SCH ×2 (08:16→23:19)
[2018-08-06] MEDS: AMIODARONE 200 MG TAB PO SCH ×2 (08:16→23:19)
[2018-08-06] MEDS: PIPERACILLIN-TAZOBACTAM 3.375 GM in SODIUM CHLORIDE 0.9% 100 ML IVPB SCH ×2 (08:17→16:53)
[2018-08-06] MEDS: ENOXAPARIN 40 MG/0.4 ML SYRINGE SQ SCH (08:18)
[2018-08-06] MEDS: AMMONIUM LACTATE 12% LOTION 225 GM BTL TOPICAL SCH (08:19)
[2018-08-06] MEDS: PANTOPRAZOLE 40 MG/10 ML VIAL IVP SCH (08:19)
--- NOTE | 2018-08-06 11:00 | P.PN ---
Subjective Progress Note Date: 08/06/18 This is a 78-year-old female patient of Dr. Kirby. Patient claimed residing at [facility] presented to the ER with complaints of right upper and right lower quadrant pain [address] completed showing high-grade small bowel traction proximal third to half level, transition point in the mid lower abdomen. Small bowel loops are dilated up to 4.2 cm and edematous with reactive mesenteric edema and mild ascites fluids. Prominent fecal distention of the rectum up to 6.7 cm. Moderate sized fat and ascites containing umbilical hernia measuring 3.7 cm wide. Patient was admitted to Dr. Lara. Patient was recently admitted to the prolonged hospital stay for acute hypoxic Estrace failure requiring intubation with severe sepsis with UTI and pneumonia and cellulitis. Patient also in A. fib and was started on anticoagulation during previous admission. Patient's additional medical history includes asthma, COPD, hyperlipidemia, essential hypertension, sleep apnea and depression. Patient does have NG tube in place which has provided some relief with abdominal discomfort. Patient's eliquis currently on hold due to possibility of surgery. Lovenox DVT prophylaxis has been added. Patient currently on Zosyn. At this time will consult cardiology services for preop clearance due to patient's extensive history including A. fib history. At this time patient is still c omplaining of some abdominal discomfort. Patient denies nausea vomiting. Patient denies diarrhea. Patient denies any urinary burning or frequency. Patient denies chest pain or shortness breath. On 08/05/2018 patient is alert and oriented 3 resting comfortably in bed. Discussed case with surgical services. Patient will likely have expiratory lap today with Dr. Lara. He was evaluated by cardiology services. Patient's home dose of eliquis currently on hold due to surgical intervention. Due to patient previously requiring mechanical ventilation within the past [address] Sloan for pulmonary care. Patient also having chronic lower extremity cellulitis. Patient was positive for MRSA during previous admission and treated with antibiotics. Will consult Dr. Kapadia at this time. At this time patient is still having some abdominal discomfort. NG remains in p lace. Patient denies chest pain or shortness of breath. Patient denies any nausea vomiting or diarrhea. On 08/06/2018 patient is alert and oriented resting comfortably in bed. Status post exploratory lap, lysis of adhesions and repair of incarcerated ventral hernia and omentectoy. Patient is currently postop day 1. Patient states her abdominal pain has improved. Patient denies chest pain or shortness of breath. Patient denies nausea vomiting or diarrhea. Patient denies any urinary burning or frequency. NG tube is in place. She remains nothing by mouth at this time. Cardiology pulmonary and infectious disease is following. Objective - Vital Signs Vital signs: Vital Signs Temp 98.2 F 08/06/18 08:00 Pulse 80 08/06/18 08:00 Resp 16 08/06/18 08:00 BP 131/78 08/06/18 08:00 Pulse Ox 97 08/06/18 08:00 Intake & Output 08/05/18 08/06/18 08/06/18 18:59 06:59 18:59 Intake Total 950 700 0 Output Total 275 Balance 675 700 0 Weight 114 kg Intake: IV 950 Intake, IV Titration 700 Amount Piperacillin-Tazobactam 3 100 .375 gm In Sodium Chloride 0.9% 100 ml @ 25 mls/hr IVPB Q8HR [facility] Rx# :[id number] Sodium Chloride 0.9% 1, 600 000 ml @ 75 mls/hr IV . [id number] [facility] Rx#:[id number] Oral 0 0 Output: Urine 250 Estimated Blood Loss 25 Other: Voiding Method Indwelling Catheter Indwelling Catheter Indwelling Catheter - Exam Head normocephalic Neck supple Lungs clear to auscultation bilaterally no wheezing or crackles Heart regular rate and rhythm S1-S2, no rub or gallop Abdomen is soft some tenderness to palpation. Some shadowing noted to dressing. Midline incision. Extremities bilateral lower extremity erythema Neuro alert and orientated to 3 - Labs CBC & Chem 7: 08/06/18 05:46 08/06/18 05:46 Labs: Abnormal Lab Results - Last 24 Hours (Table) 08/05/18 08/05/18 08/06/18 Range/Units 12:46 16:26 05:46 WBC (3.8-10.6) k/uL MCHC (31.0-37.0) g/dL Neutrophils # (1.3-7.7) k/uL Lymphocytes # (1.0-4.8) k/uL Carbon Dioxide 31 H (22-30) mmol/L POC Glucose (mg/dL) 72 L 73 L (75-99) mg/dL Calcium 8.0 L (8.4-10.2) mg/dL Total Protein 4.5 L (6.3-8.2) g/dL Albumin 2.4 L (3.5-5.0) g/dL 08/06/18 Range/Units 05:46 WBC 12.2 H (3.8-10.6) k/uL MCHC 29.7 L (31.0-37.0) g/dL Neutrophils # 10.4 H (1.3-7.7) k/uL Lymphocytes # 0.7 L (1.0-4.8) k/uL Carbon Dioxide (22-30) mmol/L POC Glucose (mg/dL) (75-99) mg/dL Calcium (8.4-10.2) mg/dL Total Protein (6.3-8.2) g/dL Albumin (3.5-5.0) g/dL Microbiology - Last 24 Hours (Table) 08/03/18 14:26 Blood Culture - Preliminary Blood No Growth after 48 hours Assessment and Plan Assessment: 1. High-grade small bowel obstruction. Repeat abdominal x-ray ordered per surgical services. Patient currently nothing by mouth NG tube in place. Repeat abdominal x-ray completed showing solitary dilated loop of small bowel remain centralized within the abdomen high-grade small bowel obstruction. Discussed case with surgical nurse practitioner. Status post Status post exploratory lap, lysis of adhesions and repair of incarcerated ventral hernia and omentectoy. Patient is currently postop day 1. Patient is nothing by mouth. G-tube in place 2. History of paroxysmal atrial flutter fibrillation. Patient is currently in normal sinus rhythm. Patient's eliquis currently on hold due to possible surgical intervention. she was evaluated by cardiology services. Per cardiology patient is high risk due to multiple comorbid conditions. Eliquis currently on hold and will be resumed postoperatively per surgical services 3. History of recent admission for sepsis requiring mechanical ventilation.Dr. Garrett has been consulted for pulmonary care due to recent intubation 4. History of COPD 6. History of diabetes mellitus type 2 patient maintained on sliding scale 7. History of arthritis 8. History of tricuspid regurg 9. History of essential hypertension 10. History of obstructive sleep apnea 11. Bilateral lower extremity erythema. Previous history of cellulitis with MRSA. Will consult Dr. Kapadia at this time due to increase lower extremity redness. Patient currently on Zosyn. Infectious disease following DVT prophylaxis Lovenox. GI prophylaxis Protonix Thank you for this consultation we'll continue to follow patient closely throughout stay I performed an examination of the patient and discussed their management with the Nurse Practitioner. I have reviewed the Nurse Practitioner's notes and agree with the documented findings and plan of care
[2018-08-06 11:25] LABS: Glucose,Whole Blood 78 mg/dL (75-99)
--- NOTE | 2018-08-06 13:44 | P.PN ---
Subjective Progress Note Date: 08/06/18 CHIEF COMPLAINT: Abdominal pain HISTORY OF PRESENT ILLNESS: Patient examined at the bedside. Patient is status post exploratory laparotomy, lysis of adhesions, repair of incarcerated ventral hernia, and omentectomy. Patient reports passing flatus. No BM. WBC 12.2. Hemoglobin 11.5. Patient reports her pain is tolerable at this time. PHYSICAL EXAM: VITAL SIGNS: Reviewed. GENERAL: Well-developed in no acute distress. HEENT: No sclera icterus. Extraocular movements grossly intact. Moist buccal mucosa. Head is atraumatic, normocephalic. ABDOMEN: Obese. Soft. Nondistended. NEUROLOGIC: Alert and oriented. Cranial nerves II through XII grossly intact. ASSESSMENT: 1. Abdominal pain 2. High grade small bowel obstruction 3. Status post exploratory laparotomy PLAN: 1. Discontinue NG 2. Patient may have sips of water. Begin clear liquid diet tomorrow morning 3. Pain control 4. Incentive spirometry 5. Activity as tolerated 6. May resume Eliquis tomorrow Nurse practitioner note has been reviewed by physician. Signing provider agrees with the documented findings, assessment, and plan of care. Objective - Vital Signs Vital signs: Vital Signs Temp 98.2 F 08/06/18 08:00 Pulse 70 08/06/18 12:11 Resp 16 08/06/18 08:00 BP 131/78 08/06/18 08:00 Pulse Ox 97 08/06/18 08:00 Intake & Output 08/05/18 08/06/18 08/06/18 18:59 06:59 18:59 Intake Total 950 700 0 Output Total 275 Balance 675 700 0 Weight 114 kg Intake: IV 950 Intake, IV Titration 700 Amount Piperacillin-Tazobactam 3 100 .375 gm In Sodium Chloride 0.9% 100 ml @ 25 mls/hr IVPB Q8HR [facility] Rx# :[id number] Sodium Chloride 0.9% 1, 600 000 ml @ 75 mls/hr IV . [id number] [facility] Rx#:[id number] Oral 0 0 Output: Urine 250 Estimated Blood Loss 25 Other: Voiding Method Indwelling Catheter Indwelling Catheter Indwelling Catheter - Labs CBC & Chem 7: 08/06/18 05:46 08/06/18 05:46 Labs: Abnormal Lab Results - Last 24 Hours (Table) 08/05/18 08/06/18 08/06/18 Range/Units 16:26 05:46 05:46 WBC 12.2 H (3.8-10.6) k/uL MCHC 29.7 L (31.0-37.0) g/dL Neutrophils # 10.4 H (1.3-7.7) k/uL Lymphocytes # 0.7 L (1.0-4.8) k/uL Carbon Dioxide 31 H (22-30) mmol/L POC Glucose (mg/dL) 73 L (75-99) mg/dL Calcium 8.0 L (8.4-10.2) mg/dL Total Protein 4.5 L (6.3-8.2) g/dL Albumin 2.4 L (3.5-5.0) g/dL Microbiology - Last 24 Hours (Table) 08/03/18 14:26 Blood Culture - Preliminary Blood No Growth after 48 hours
--- NOTE | 2018-08-06 14:37 | P.PN ---
Subjective Progress Note Date: 08/06/18 08/06/2017: Patient seen and examined. Patient had surgery yesterday for small bowel obstruction. NG tube is in place. She isn't currently on 2 L nasal cannula. She has been hemodynamically stable and afebrile. The patient states she is doing fairly well. She states her pain is controlled with long she doesn't move. She denies any chest pain and shortness of breath. Objective - Vital Signs Vital signs: Vital Signs Temp 98.2 F 08/06/18 08:00 Pulse 70 08/06/18 12:11 Resp 16 08/06/18 08:00 BP 131/78 08/06/18 08:00 Pulse Ox 97 08/06/18 08:00 Intake & Output 08/05/18 08/06/18 08/06/18 18:59 06:59 18:59 Intake Total 950 700 0 Output Total 275 Balance 675 700 0 Weight 114 kg Intake: IV 950 Intake, IV Titration 700 Amount Piperacillin-Tazobactam 3 100 .375 gm In Sodium Chloride 0.9% 100 ml @ 25 mls/hr IVPB Q8HR [facility] Rx# :[id number] Sodium Chloride 0.9% 1, 600 000 ml @ 75 mls/hr IV . [id number] [facility] Rx#:[id number] Oral 0 0 Output: Urine 250 Estimated Blood Loss 25 Other: Voiding Method Indwelling Catheter Indwelling Catheter Indwelling Catheter - Exam Gen.: Patient is alert and oriented 3, no acute distress, obese Cardiovascular: Irregular rate and rhythm, S1/S2 Lungs: Diminished breath sounds at the bases with scattered crackles Abdomen: Soft mildly tender to palpation Extremities: + Edema, chronic venous stasis, stasis dermatitis - Labs CBC & Chem 7: 08/06/18 05:46 08/06/18 05:46 Labs: Abnormal Lab Results - Last 24 Hours (Table) 08/05/18 08/06/18 08/06/18 Range/Units 16:26 05:46 05:46 WBC 12.2 H (3.8-10.6) k/uL MCHC 29.7 L (31.0-37.0) g/dL Neutrophils # 10.4 H (1.3-7.7) k/uL Lymphocytes # 0.7 L (1.0-4.8) k/uL Carbon Dioxide 31 H (22-30) mmol/L POC Glucose (mg/dL) 73 L (75-99) mg/dL Calcium 8.0 L (8.4-10.2) mg/dL Total Protein 4.5 L (6.3-8.2) g/dL Albumin 2.4 L (3.5-5.0) g/dL Microbiology - Last 24 Hours (Table) 08/03/18 14:26 Blood Culture - Preliminary Blood No Growth after 48 hours Assessment and Plan Assessment: Acute hypoxic respiratory failure Abdominal pain with high grade small bowel obstruction Chronic persistent severe asthma Leukocytosis, resolved Lactic acidosis, resolved COPD CHF, diastolic Obstructive sleep apnea, noncompliant with CPAP Paroxysmal Atrial fibrillation rate controlled Recent hospitalization with severe sepsis and requiring mechanical ventilation Morbid obesity Hypertension Moderate PCM Hypertensive heart disease Dyslipidemia DM2 Severe pulmonary hypertension with RVSP 86 mmHg Valvular heart disease Recent LE cellulitis, MRSA and proteus Patient is acceptable but high risk for proposed surgery due to multiple co- morbid conditions and recent hospitalization requiring mechanical ventilation, generalized debility. Check CXR now Optimize fluid status Monitor I/O, urine output Duonebs, Add Pulmicort and Singulair Eliquis GI and DVT prophylaxis, IS and pulmonary hygiene Patient is seen and examined covering for Dr. Piper IS and pulmonary hygiene is reiterated to the patient PT and OT when cleared by surgery
[2018-08-06] MEDS: MORPHINE SULFATE 4 MG/ML SYRINGE IV PRN (16:53)
[2018-08-06 20:08] LABS: Glucose,Whole Blood 76 mg/dL (75-99)
[2018-08-06] MEDS ORDERED: ACETAMINOPHEN TAB 325 MG TAB PO PRN (22:59)
[2018-08-06] MEDS: MONTELUKAST 10 MG TAB PO SCH (23:18)
[2018-08-06] MEDS: DEXTROSE 5%-0.9% NACL 1,000 ML IV SCH (23:19)
--- NOTE | 2018-08-06 23:33 | PN ---
PROGRESS NOTE DATE OF SERVICE: 08/06/2018 REASON FOR FOLLOWUP: Lower extremity cellulitis and ankle surgery hernia. INTERVAL HISTORY: The patient is currently afebrile. She is breathing comfortably. Abdominal pain is currently controlled with pain medication. No nausea, no vomiting. Denies any pain in the leg area. PHYSICAL EXAMINATION: Her blood pressure is 135/73 with a pulse of 70, temperature 98.1. She is 97% on 3 L nasal cannula. General description is an elderly female lying in bed in no distress. RESPIRATORY SYSTEM: Unlabored breathing. Clear to auscultation anteriorly. HEART: S1, S2. Regular rate and rhythm. ABDOMEN: Soft. No tenderness. Leg swelling persists. Redness slightly decreased. No obvious no drainage. LABS: Hemoglobin 11.5, white count 12.2 with a BUN 13, creatinine 0.63. Blood culture negative so far. DIAGNOSTIC IMPRESSION AND PLAN: Patient with leg swelling and cellulitis more likely related to ventral abdominal hernia, status post surgical repair of the same and omentectomy with no evidence of any bowel perforation. Also the lower extremity cellulitis is more likely streptococcal disease. Patient to continue with Zosyn at this point. It should cover both the processes while monitoring the clinical course closely. Continue with supportive care. MMODL / IJN: [id number] /
[2018-08-07] MEDS: AMMONIUM LACTATE 12% LOTION 225 GM BTL TOPICAL SCH ×3 (00:40→21:34)
[2018-08-07] MEDS: INSULIN ASPART (NovoLOG) 100 UNIT/ML VIAL SQ SCH ×5 (00:40→21:37)
[2018-08-07] MEDS: SODIUM CHLORIDE 0.9% 1,000 ML IV SCH ×2 (00:43→09:12)
[2018-08-07] MEDS: PIPERACILLIN-TAZOBACTAM 3.375 GM in SODIUM CHLORIDE 0.9% 100 ML IVPB SCH ×4 (00:49→23:44)
[2018-08-07 06:58] LABS: Glucose,Whole Blood 101 mg/dL (75-99)
[2018-08-07] MEDS: BUDESONIDE 0.5 MG/2 ML NEBU INHALATION SCH ×2 (07:57→20:24)
[2018-08-07] MEDS: IPRATROPIUM-ALBUTEROL 3 ML NEB INHALATION SCH ×4 (07:57→20:24)
[2018-08-07 08:14] LABS: Basophils # (A) 0.1 k/uL (0-0.2); Basophils % (A) 1 %; Eosinophils # (A) 0.2 k/uL (0-0.7); Eosinophils % (A) 2 %; HCT 36.4 % (34.0-46.0); HGB 11.2 gm/dL (11.4-16.0); Hypochromasia Slight; Lymphocytes % (A) 10 %; MCH 28.3 pg (25.0-35.0); MCHC 30.6 g/dL (31.0-37.0); MCV 92.2 fL (80.0-100.0); Mean Platelet Volume 7.1; Monocytes # (A) 0.7 k/uL (0-1.0); Monocytes % (A) 8 %; Neutrophils # (A) 7.4 k/uL (1.3-7.7); Neutrophils % (A) 78 %; Platelet Count 339 k/uL (150-450); RBC 3.95 m/uL (3.80-5.40); RDW 14.7 % (11.5-15.5); WBC 9.5 k/uL (3.8-10.6)
[2018-08-07 08:15] LABS: ALT 20 U/L (9-52); AST 19 U/L (14-36); Albumin 2.3 g/dL (3.5-5.0); Alkaline Phosphatase 56 U/L (38-126); Anion Gap 3 mmol/L; Blood Urea Nitrogen 12 mg/dL (7-17); Calcium 8.2 mg/dL (8.4-10.2); Carbon Dioxide 31 mmol/L (22-30); Chloride 106 mmol/L (98-107); Glucose 92 mg/dL (74-99); Potassium 3.8 mmol/L (3.5-5.1); Sodium 140 mmol/L (137-145); Total Bilirubin 0.7 mg/dL (0.2-1.3); Total Protein 4.5 g/dL (6.3-8.2)
[2018-08-07] MEDS: ENOXAPARIN 40 MG/0.4 ML SYRINGE SQ SCH (08:57)
[2018-08-07] MEDS: PANTOPRAZOLE 40 MG/10 ML VIAL IVP SCH (08:57)
[2018-08-07] MEDS: METOPROLOL TARTRATE 25 MG TAB PO SCH ×2 (08:58→21:36)
[2018-08-07] MEDS: AMIODARONE 200 MG TAB PO SCH ×2 (08:58→21:33)
[2018-08-07] MEDS: DEXTROSE 5%-0.9% NACL 1,000 ML IV SCH (09:12)
[2018-08-07 12:01] LABS: Glucose,Whole Blood 98 mg/dL (75-99)
--- NOTE | 2018-08-07 12:03 | P.PN ---
Subjective Progress Note Date: 08/07/18 08/07/2018: Patient seen and examined. Patient just got out of bed to the chair. She states she is in pain and would like a pain pill. She states her breathing is okay as long she doesn't move. She states the pain makes her more short of breath. She is having an occasional cough. Objective - Vital Signs Vital signs: Vital Signs Temp 97.7 F 08/07/18 07:00 Pulse 72 08/07/18 11:35 Resp 14 08/07/18 07:00 BP 132/62 08/07/18 07:00 Pulse Ox 96 08/07/18 07:00 Intake & Output 08/06/18 08/07/18 08/07/18 18:59 06:59 18:59 Intake Total 525 420 Output Total 200 Balance 325 420 Intake: Intake, IV Titration 525 420 Amount Dextrose 5%-0.9% NaCl 1, 420 000 ml @ 75 mls/hr IV . [id number] [facility] Rx#:[id number] Sodium Chloride 0.9% 1, 525 000 ml @ 75 mls/hr IV . [id number] [facility] Rx#:[id number] Oral 0 0 Output: Urine 200 Uretheral (Jaimes) 200 Other: Voiding Method Indwelling Catheter Indwelling Catheter Indwelling Catheter - Exam Gen.: Patient is alert and oriented 3, no acute distress, obese Cardiovascular: Irregular rate and rhythm, S1/S2 Lungs: Diminished breath sounds at the bases with scattered crackles Abdomen: Soft mildly tender to palpation Extremities: + Edema, chronic venous stasis, stasis dermatitis - Labs CBC & Chem 7: 08/07/18 07:09 08/07/18 07:09 Labs: Abnormal Lab Results - Last 24 Hours (Table) 08/07/18 08/07/18 08/07/18 Range/Units 06:54 07:09 07:09 Hgb 11.2 L (11.4-16.0) gm/dL MCHC 30.6 L (31.0-37.0) g/dL Carbon Dioxide 31 H (22-30) mmol/L POC Glucose (mg/dL) 101 H (75-99) mg/dL Calcium 8.2 L (8.4-10.2) mg/dL Total Protein 4.5 L (6.3-8.2) g/dL Albumin 2.3 L (3.5-5.0) g/dL Microbiology - Last 24 Hours (Table) 08/03/18 14:26 Blood Culture - Preliminary Blood No Growth after 72 hours Assessment and Plan Assessment: Acute hypoxic respiratory failure Abdominal pain with high grade small bowel obstruction Chronic persistent severe asthma Leukocytosis, resolved Lactic acidosis, resolved COPD CHF, diastolic Obstructive sleep apnea, noncompliant with CPAP Paroxysmal Atrial fibrillation rate controlled Recent hospitalization with severe sepsis and requiring mechanical ventilation Morbid obesity Hypertension Moderate PCM Hypertensive heart disease Dyslipidemia DM2 Severe pulmonary hypertension with RVSP 86 mmHg Valvular heart disease Recent LE cellulitis, MRSA and proteus Patient is acceptable but high risk for proposed surgery due to multiple co- morbid conditions and recent hospitalization requiring mechanical ventilation, generalized debility. Optimize fluid status Monitor I/O, urine output Duonebs, Add Pulmicort and Singulair Eliquis GI and DVT prophylaxis, IS and pulmonary hygiene Patient is seen and examined covering for Dr. Piper IS and pulmonary hygiene is reiterated to the patient PT and OT when cleared by surgery
--- NOTE | 2018-08-07 12:41 | P.PN ---
Subjective Progress Note Date: 08/07/18 CHIEF COMPLAINT: Abdominal pain HISTORY OF PRESENT ILLNESS: Patient examined at the bedside. Patient is status post exploratory laparotomy, lysis of adhesions, repair of incarcerated ventral hernia, and omentectomy. Patient reports passing flatus yesterday but denies passing flatus today. Denies BM. Sitting up in the chair. Reports generalized abdominal pain. Patient not using IS as instructed. WBC 9.5. Hemoglobin 11.2. PHYSICAL EXAM: VITAL SIGNS: Reviewed. GENERAL: Well-developed in no acute distress. HEENT: No sclera icterus. Extraocular movements grossly intact. Moist buccal mucosa. Head is atraumatic, normocephalic. ABDOMEN: Obese. Soft. Nondistended. NEUROLOGIC: Alert and oriented. Cranial nerves II through XII grossly intact. ASSESSMENT: 1. Abdominal pain 2. High grade small bowel obstruction 3. Status post exploratory laparotomy PLAN: 1. Continue ice chips, popsicles, and sips of water. Will advance diet when patient passing flatus 2. Incentive spirometry 3. Pain control 4. Activity as tolerated. PT/OT Nurse practitioner note has been reviewed by physician. Signing provider agrees with the documented findings, assessment, and plan of care. Objective - Vital Signs Vital signs: Vital Signs Temp 97.7 F 08/07/18 07:00 Pulse 72 08/07/18 11:35 Resp 14 08/07/18 07:00 BP 132/62 08/07/18 07:00 Pulse Ox 96 08/07/18 07:00 Intake & Output 08/06/18 08/07/18 08/07/18 18:59 06:59 18:59 Intake Total 525 420 Output Total 200 Balance 325 420 Intake: Intake, IV Titration 525 420 Amount Dextrose 5%-0.9% NaCl 1, 420 000 ml @ 75 mls/hr IV . [id number] [facility] Rx#:[id number] Sodium Chloride 0.9% 1, 525 000 ml @ 75 mls/hr IV . [id number] [facility] Rx#:[id number] Oral 0 0 Output: Urine 200 Uretheral (Jaimes) 200 Other: Voiding Method Indwelling Catheter Indwelling Catheter Indwelling Catheter - Labs CBC & Chem 7: 08/07/18 07:09 08/07/18 07:09 Labs: Abnormal Lab Results - Last 24 Hours (Table) 0308/07/18 08/07/18 Range/Units 06:54 07:09 07:09 Hgb 11.2 L (11.4-16.0) gm/dL MCHC 30.6 L (31.0-37.0) g/dL Carbon Dioxide 31 H (22-30) mmol/L POC Glucose (mg/dL) 101 H (75-99) mg/dL Calcium 8.2 L (8.4-10.2) mg/dL Total Protein 4.5 L (6.3-8.2) g/dL Albumin 2.3 L (3.5-5.0) g/dL Microbiology - Last 24 Hours (Table) 08/03/18 14:26 Blood Culture - Preliminary Blood No Growth after 72 hours
[2018-08-07 13:11] VITALS: BMI 43.1
--- NOTE | 2018-08-07 13:37 | P.PN ---
Subjective Progress Note Date: 08/07/18 This is a 78-year-old female patient of Dr. Kirby. Patient claimed residing at [facility] presented to the ER with complaints of right upper and right lower quadrant pain [address] completed showing high-grade small bowel traction proximal third to half level, transition point in the mid lower abdomen. Small bowel loops are dilated up to 4.2 cm and edematous with reactive mesenteric edema and mild ascites fluids. Prominent fecal distention of the rectum up to 6.7 cm. Moderate sized fat and ascites containing umbilical hernia measuring 3.7 cm wide. Patient was admitted to Dr. Lara. Patient was recently admitted to the prolonged hospital stay for acute hypoxic Estrace failure requiring intubation with severe sepsis with UTI and pneumonia and cellulitis. Patient also in A. fib and was started on anticoagulation during previous admission. Patient's additional medical history includes asthma, COPD, hyperlipidemia, essential hypertension, sleep apnea and depression. Patient does have NG tube in place which has provided some relief with abdominal discomfort. Patient's eliquis currently on hold due to possibility of surgery. Lovenox DVT prophylaxis has been added. Patient currently on Zosyn. At this time will consult cardiology services for preop clearance due to patient's extensive history including A. fib history. At this time patient is still c omplaining of some abdominal discomfort. Patient denies nausea vomiting. Patient denies diarrhea. Patient denies any urinary burning or frequency. Patient denies chest pain or shortness breath. On 08/05/2018 patient is alert and oriented 3 resting comfortably in bed. Discussed case with surgical services. Patient will likely have expiratory lap today with Dr. Lara. He was evaluated by cardiology services. Patient's home dose of eliquis currently on hold due to surgical intervention. Due to patient previously requiring mechanical ventilation within the past [address] Sloan for pulmonary care. Patient also having chronic lower extremity cellulitis. Patient was positive for MRSA during previous admission and treated with antibiotics. Will consult Dr. Kapadia at this time. At this time patient is still having some abdominal discomfort. NG remains in p lace. Patient denies chest pain or shortness of breath. Patient denies any nausea vomiting or diarrhea. On 08/06/2018 patient is alert and oriented resting comfortably in bed. Status post exploratory lap, lysis of adhesions and repair of incarcerated ventral hernia and omentectoy. Patient is currently postop day 1. Patient states her abdominal pain has improved. Patient denies chest pain or shortness of breath. Patient denies nausea vomiting or diarrhea. Patient denies any urinary burning or frequency. NG tube is in place. She remains nothing by mouth at this time. Cardiology pulmonary and infectious disease is following. On 08/07/2018 patient is alert and oriented. Patient is status post explatory laparoscopic postop day 2. She remains nothing by mouth at this time possible advancing to clear liquid diet per surgical services. Eliquis be resumed discussed with surgical services. At this time patient denies chest pain or shortness breath. Patient denies nausea vomiting or diarrhea. Patient denies any urinary burning or frequency Objective - Vital Signs Vital signs: Vital Signs Temp 97.7 F 08/07/18 07:00 Pulse 72 08/07/18 11:35 Resp 14 08/07/18 07:00 BP 132/62 08/07/18 07:00 Pulse Ox 96 08/07/18 07:00 Intake & Output 08/06/18 08/07/18 08/07/18 18:59 06:59 18:59 Intake Total 525 420 Output Total 200 Balance 325 420 Weight 114 kg Intake: Intake, IV Titration 525 420 Amount Dextrose 5%-0.9% NaCl 1, 420 000 ml @ 75 mls/hr IV . [id number] [facility] Rx#:[id number] Sodium Chloride 0.9% 1, 525 000 ml @ 75 mls/hr IV . [id number] [facility] Rx#:[id number] Oral 0 0 Output: Urine 200 Uretheral (Jaimes) 200 Other: Voiding Method Indwelling Catheter Indwelling Catheter Indwelling Catheter - Exam Head normocephalic Neck supple Lungs clear to auscultation bilaterally no wheezing or crackles Heart regular rate and rhythm S1-S2, no rub or gallop Abdomen is soft some tenderness to palpation. Some shadowing noted to dressing. Midline incision. Extremities bilateral lower extremity erythema Neuro alert and orientated to 3 - Labs CBC & Chem 7: 08/07/18 07:09 08/07/18 07:09 Labs: Abnormal Lab Results - Last 24 Hours (Table) 08/07/18 08/07/18 08/07/18 Range/Units 06:54 07:09 07:09 Hgb 11.2 L (11.4-16.0) gm/dL MCHC 30.6 L (31.0-37.0) g/dL Carbon Dioxide 31 H (22-30) mmol/L POC Glucose (mg/dL) 101 H (75-99) mg/dL Calcium 8.2 L (8.4-10.2) mg/dL Total Protein 4.5 L (6.3-8.2) g/dL Albumin 2.3 L (3.5-5.0) g/dL Microbiology - Last 24 Hours (Table) 08/03/18 14:26 Blood Culture - Preliminary Blood No Growth after 72 hours Assessment and Plan Assessment: 1. High-grade small bowel obstruction. Repeat abdominal x-ray ordered per surg ical services. Patient currently nothing by mouth NG tube in place. Repeat abdominal x-ray completed showing solitary dilated loop of small bowel remain centralized within the abdomen high-grade small bowel obstruction. Discussed case with surgical nurse practitioner. Status post Status post exploratory lap, lysis of adhesions and repair of incarcerated ventral hernia and omentectoy. Patient is currently postop day 2. Patient is nothing by mouth. NGtube in place 2. History of paroxysmal atrial flutter fibrillation. Patient is currently in normal sinus rhythm. Patient's eliquis currently on hold due to possible surgical intervention. she was evaluated by cardiology services. Per cardiology patient is high risk due to multiple comorbid conditions. Discussed with surgical services [employer] okay to resume eliquis 3. History of recent admission for sepsis requiring mechanical ventilation.Dr. Garrett has been consulted for pulmonary care due to recent intubation 4. History of COPD 6. History of diabetes mellitus type 2 patient maintained on sliding scale 7. History of arthritis 8. History of tricuspid regurg 9. History of essential hypertension 10. History of obstructive sleep apnea 11. Bilateral lower extremity erythema. Previous history of cellulitis with MRSA. Will consult Dr. Kapadia at this time due to increase lower extremity redness. Patient currently on Zosyn. Infectious disease following DVT prophylaxis Lovenox eliquis has been resumed. GI prophylaxis Protonix Thank you for this consultation we'll continue to follow patient closely throughout stay I performed an examination of the patient and discussed their management with the Nurse Practitioner. I have reviewed the Nurse Practitioner's notes and agree with the documented findings and plan of care
[2018-08-07 16:58] LABS: Glucose,Whole Blood 115 mg/dL (75-99)
[2018-08-07 19:16] LABS: Glucose,Whole Blood 115 mg/dL (75-99)
[2018-08-07 20:07] LABS: Glucose,Whole Blood 106 mg/dL (75-99)
[2018-08-07] MEDS: APIXABAN 5 MG TAB PO SCH (21:36)
[2018-08-07] MEDS: MONTELUKAST 10 MG TAB PO SCH (21:37)
--- NOTE | 2018-08-07 23:10 | PN ---
PROGRESS NOTE DATE OF SERVICE: 08/07/2018. REASON FOR FOLLOWUP: Incarcerated ventral hernia, bilateral sullivan cellulitis. INTERVAL HISTORY: The patient did have a low-grade fever last night of 100.3. The patient is afebrile since then. The patient is breathing slightly comfortably. Denies having any chest pain. Abdominal pain is currently controlled. No nausea, no vomiting. Denies any pain to the leg area. PHYSICAL EXAMINATION: Blood pressure is 142/55 with a pulse of 54, temp 96.6. She is 100% on 2 L nasal cannula. GENERAL DESCRIPTION: An elderly female lying in bed in no distress. RESPIRATORY SYSTEM: Unlabored breathing. Clear to auscultation anteriorly. HEART: S1, S2. Regular rate and rhythm. ABDOMEN: Soft, mild tenderness. EXTREMITIES: Leg swelling persists, redness slightly decreased. LABS: Hemoglobin is 11.2 with white count 9.5. BUN of 12, creatinine 0.59. DIAGNOSTIC IMPRESSION AND PLAN: Patient with leg cellulitis, the patient did have an incarcerated hernia containing omentum, status post repair of the same and with small-bowel obstruction. Patient at this time is on Zosyn. White count normalized. Cellulitis is also improving. Continue current treatment at this point, transition to oral antibiotic improved. Continue supportive care. MMODL / IJN: [id number] /
[2018-08-07] MEDS: ONDANSETRON 4 MG/2 ML VIAL IVP PRN (23:39)
[2018-08-08] MEDS: DEXTROSE 5%-0.9% NACL 1,000 ML IV SCH ×2 (01:14→11:55)
[2018-08-08] MEDS: SODIUM CHLORIDE 0.9% 1,000 ML IV SCH ×2 (03:13→11:55)
[2018-08-08] MEDS: HYDROmorphone 1 MG/ML 1 ML SYRINGE IVP PRN (05:25)
[2018-08-08] MEDS: METOPROLOL TARTRATE 25 MG TAB PO SCH ×2 (07:37→21:30)
[2018-08-08] MEDS: AMIODARONE 200 MG TAB PO SCH ×2 (07:37→21:32)
[2018-08-08] MEDS: PANTOPRAZOLE 40 MG TABLET PO SCH (07:37)
[2018-08-08] MEDS: APIXABAN 5 MG TAB PO SCH ×2 (07:38→21:31)
[2018-08-08] MEDS: AMMONIUM LACTATE 12% LOTION 225 GM BTL TOPICAL SCH ×2 (07:38→21:30)
[2018-08-08] MEDS: PIPERACILLIN-TAZOBACTAM 3.375 GM in SODIUM CHLORIDE 0.9% 100 ML IVPB SCH ×2 (07:44→17:43)
[2018-08-08 07:53] LABS: Basophils # (A) 0.1 k/uL (0-0.2); Basophils % (A) 1 %; Eosinophils # (A) 0.2 k/uL (0-0.7); Eosinophils % (A) 2 %; HCT 37.5 % (34.0-46.0); HGB 11.7 gm/dL (11.4-16.0); Hypochromasia Moderate; Lymphocytes # (A) 0.8 k/uL (1.0-4.8); Lymphocytes % (A) 8 %; MCH 28.6 pg (25.0-35.0); MCHC 31.3 g/dL (31.0-37.0); MCV 91.2 fL (80.0-100.0); Monocytes # (A) 0.7 k/uL (0-1.0); Monocytes % (A) 7 %; Neutrophils % (A) 81 %; Platelet Count 335 k/uL (150-450); RBC 4.11 m/uL (3.80-5.40); RDW 14.7 % (11.5-15.5); WBC 9.9 k/uL (3.8-10.6)
[2018-08-08 08:01] LABS: ALT 22 U/L (9-52); AST 20 U/L (14-36); Albumin 2.3 g/dL (3.5-5.0); Alkaline Phosphatase 51 U/L (38-126); Anion Gap 4 mmol/L; Blood Urea Nitrogen 9 mg/dL (7-17); Calcium 8.2 mg/dL (8.4-10.2); Carbon Dioxide 28 mmol/L (22-30); Chloride 107 mmol/L (98-107); Glucose 109 mg/dL (74-99); Potassium 3.5 mmol/L (3.5-5.1); Sodium 139 mmol/L (137-145); Total Bilirubin 0.7 mg/dL (0.2-1.3); Total Protein 4.4 g/dL (6.3-8.2)
[2018-08-08] MEDS: INSULIN ASPART (NovoLOG) 100 UNIT/ML VIAL SQ SCH ×4 (08:52→21:28)
[2018-08-08] MEDS: IPRATROPIUM-ALBUTEROL 3 ML NEB INHALATION SCH ×4 (09:06→20:18)
[2018-08-08] MEDS: BUDESONIDE 0.5 MG/2 ML NEBU INHALATION SCH ×2 (09:06→20:18)
--- NOTE | 2018-08-08 10:12 | P.PN ---
Subjective Progress Note Date: 08/08/18 This is a 78-year-old female patient of Dr. Kirby. Patient claimed residing at [facility] presented to the ER with complaints of right upper and right lower quadrant pain [address] completed showing high-grade small bowel traction proximal third to half level, transition point in the mid lower abdomen. Small bowel loops are dilated up to 4.2 cm and edematous with reactive mesenteric edema and mild ascites fluids. Prominent fecal distention of the rectum up to 6.7 cm. Moderate sized fat and ascites containing umbilical hernia measuring 3.7 cm wide. Patient was admitted to Dr. Lara. Patient was recently admitted to the prolonged hospital stay for acute hypoxic Estrace failure requiring intubation with severe sepsis with UTI and pneumonia and cellulitis. Patient also in A. fib and was started on anticoagulation during previous admission. Patient's additional medical history includes asthma, COPD, hyperlipidemia, essential hypertension, sleep apnea and depression. Patient does have NG tube in place which has provided some relief with abdominal discomfort. Patient's eliquis currently on hold due to possibility of surgery. Lovenox DVT prophylaxis has been added. Patient currently on Zosyn. At this time will consult cardiology services for preop clearance due to patient's extensive history including A. fib history. At this time patient is still c omplaining of some abdominal discomfort. Patient denies nausea vomiting. Patient denies diarrhea. Patient denies any urinary burning or frequency. Patient denies chest pain or shortness breath. On 08/05/2018 patient is alert and oriented 3 resting comfortably in bed. Discussed case with surgical services. Patient will likely have expiratory lap today with Dr. Lara. He was evaluated by cardiology services. Patient's home dose of eliquis currently on hold due to surgical intervention. Due to patient previously requiring mechanical ventilation within the past [address] Sloan for pulmonary care. Patient also having chronic lower extremity cellulitis. Patient was positive for MRSA during previous admission and treated with antibiotics. Will consult Dr. Kapadia at this time. At this time patient is still having some abdominal discomfort. NG remains in p lace. Patient denies chest pain or shortness of breath. Patient denies any nausea vomiting or diarrhea. On 08/06/2018 patient is alert and oriented resting comfortably in bed. Status post exploratory lap, lysis of adhesions and repair of incarcerated ventral hernia and omentectoy. Patient is currently postop day 1. Patient states her abdominal pain has improved. Patient denies chest pain or shortness of breath. Patient denies nausea vomiting or diarrhea. Patient denies any urinary burning or frequency. NG tube is in place. She remains nothing by mouth at this time. Cardiology pulmonary and infectious disease is following. On 08/07/2018 patient is alert and oriented. Patient is status post explatory laparoscopic postop day 2. She remains nothing by mouth at this time possible advancing to clear liquid diet per surgical services. Eliquis be resumed discussed with surgical services. At this time patient denies chest pain or shortness breath. Patient denies nausea vomiting or diarrhea. Patient denies any urinary burning or frequency On 08/08/2018 patient is alert and oriented. Patient is currently postop day 3. Patient is passing gas at this time. Diet to be advanced per surgical services. Eliquis has been resumed. NG tube has been removed. Consent was from her encouraged. At this time patient denies chest pain or shortness breath. Patient denies nausea vomiting or diarrhea. Patient denies any urinary burning or frequency. Objective - Vital Signs Vital signs: Vital Signs Temp 98 F 08/08/18 07:36 Pulse 56 L 08/08/18 09:22 Resp 14 08/08/18 07:40 BP 132/67 08/08/18 07:36 Pulse Ox 98 08/08/18 07:36 Intake & Output 08/07/18 08/08/18 08/08/18 18:59 06:59 18:59 Intake Total 125 450 725 Output Total 300 Balance -175 450 725 Weight 114 kg Intake: Intake, IV Titration 450 725 Amount Dextrose 5%-0.9% NaCl 1, 450 625 000 ml @ 75 mls/hr IV . [id number] [facility] Rx#:[id number] Piperacillin-Tazobactam 3 100 .375 gm In Sodium Chloride 0.9% 100 ml @ 25 mls/hr IVPB Q8HR [facility] Rx# :[id number] Oral 125 Output: Urine 300 Uretheral (Jaimes) 200 Other: Voiding Method Indwelling Catheter Indwelling Catheter Indwelling Catheter - Exam Head normocephalic Neck supple Lungs clear to auscultation bilaterally no wheezing or crackles Heart regular rate and rhythm S1-S2, no rub or gallop Abdomen is soft some tenderness to palpation. Some shadowing noted to dressing. Midline incision. Extremities bilateral lower extremity erythema Neuro alert and orientated to 3 - Labs CBC & Chem 7: 08/08/18 07:25 08/08/18 07:25 Labs: Abnormal Lab Results - Last 24 Hours (Table) 08/07/18 08/07/18 08/07/18 Range/Units 16:56 19:15 20:06 Neutrophils # (1.3-7.7) k/uL Lymphocytes # (1.0-4.8) k/uL Creatinine (0.52-1.04) mg/dL Glucose (74-99) mg/dL POC Glucose (mg/dL) 115 H 115 H 106 H (75-99) mg/dL Calcium (8.4-10.2) mg/dL Total Protein (6.3-8.2) g/dL Albumin (3.5-5.0) g/dL 08/08/18 08/08/18 Range/Units 07:25 07:25 Neutrophils # 8.0 H (1.3-7.7) k/uL Lymphocytes # 0.8 L (1.0-4.8) k/uL Creatinine 0.49 L (0.52-1.04) mg/dL Glucose 109 H (74-99) mg/dL POC Glucose (mg/dL) (75-99) mg/dL Calcium 8.2 L (8.4-10.2) mg/dL Total Protein 4.4 L (6.3-8.2) g/dL Albumin 2.3 L (3.5-5.0) g/dL Microbiology - Last 24 Hours (Table) 08/03/18 14:26 Blood Culture - Preliminary Blood No Growth after 96 hours Assessment and Plan Assessment: 1. High-grade small bowel obstruction. Repeat abdominal x-ray ordered per surgical services. Patient currently nothing by mouth NG tube in place. Repeat abdominal x-ray completed showing solitary dilated loop of small bowel remain centralized within the abdomen high-grade small bowel obstruction. Discussed case with surgical nurse practitioner. Status post Status post exploratory lap, lysis of adhesions and repair of incarcerated ventral hernia and omentectoy. Patient is currently postop day 3. Patient is nothing by mouth. Patient is passing gas at this time. Diet to be advanced per surgical services. NG tube has been removed 2. History of paroxysmal atrial flutter fibrillation. Patient is currently in normal sinus rhythm. Patient's eliquis currently on hold due to possible surgical intervention. she was evaluated by cardiology services. Per cardiology patient is high risk due to multiple comorbid conditions. Discussed with surgical services [employer] okay to resume eliquis 3. History of recent admission for sepsis requiring mechanical ventilation.Dr. Garrett has been consulted for pulmonary care due to recent intubation 4. History of COPD 6. History of diabetes mellitus type 2 patient maintained on sliding scale 7. History of arthritis 8. History of tricuspid regurg 9. History of essential hypertension 10. History of obstructive sleep apnea 11. Bilateral lower extremity cellulitis Previous history of cellulitis with MRSA. Will consult Dr. Kapadia at this time due to increase lower extremity redness. Patient currently on Zosyn. Per infectious disease cellulitis is improving, patient may be transitioned to oral antibiotic DVT prophylaxis eliquis has been resumed. GI prophylaxis Protonix Patient planning to return to [facility] upon discharge Thank you for this consultation we'll continue to follow patient closely throughout stay I performed an examination of the patient and discussed their management with the Nurse Practitioner. I have reviewed the Nurse Practitioner's notes and agree with the documented findings and plan of care
--- NOTE | 2018-08-08 11:08 | P.PN ---
Subjective Progress Note Date: 08/08/18 CHIEF COMPLAINT: Abdominal pain HISTORY OF PRESENT ILLNESS: Patient examined at the bedside. Patient is status post exploratory laparotomy, lysis of adhesions, repair of incarcerated ventral hernia, and omentectomy. Patient reports passing flatus. Denies bowel movement. Patient is laying in bed. She has not been out of bed yet this morning. Patient states she has not been using her incentive spirometer. Patient demonstrated IS at the bedside. Patient only able to pull 500 mL. Reinforced use of incentive spirometry. WBC 9.9. Hemoglobin 11.7. PHYSICAL EXAM: VITAL SIGNS: Reviewed. GENERAL: Well-developed in no acute distress. HEENT: No sclera icterus. Extraocular movements grossly intact. Moist buccal mucosa. Head is atraumatic, normocephalic. ABDOMEN: Obese. Soft. Nondistended. NEUROLOGIC: Alert and oriented. Cranial nerves II through XII grossly intact. ASSESSMENT: 1. Abdominal pain 2. High grade small bowel obstruction 3. Status post exploratory laparotomy, lysis of adhesions, repair of incarcerated ventral hernia, and omentectomy PLAN: 1. Begin clear liquids 2. Incentive spirometry. Reinforced using IS with patient. 3. Pain control 4. Activity as tolerated. PT/OT. Patient to be OOB and ambulatory today. Nurse practitioner note has been reviewed by physician. Signing provider agrees with the documented findings, assessment, and plan of care. Objective - Vital Signs Vital signs: Vital Signs Temp 98 F 08/08/18 07:36 Pulse 56 L 08/08/18 09:22 Resp 14 08/08/18 07:40 BP 132/67 08/08/18 07:36 Pulse Ox 98 08/08/18 07:36 Intake & Output 08/07/18 08/08/18 08/08/18 18:59 06:59 18:59 Intake Total 125 450 725 Output Total 300 Balance -175 450 725 Weight 114 kg Intake: Intake, IV Titration 450 725 Amount Dextrose 5%-0.9% NaCl 1, 450 625 000 ml @ 75 mls/hr IV . [id number] [facility] Rx#:[id number] Piperacillin-Tazobactam 3 100 .375 gm In Sodium Chloride 0.9% 100 ml @ 25 mls/hr IVPB Q8HR [facility] Rx# :[id number] Oral 125 Output: Urine 300 Uretheral (Jaimes) 200 Other: Voiding Method Indwelling Catheter Indwelling Catheter Indwelling Catheter - Labs CBC & Chem 7: 08/08/18 07:25 08/08/18 07:25 Labs: Abnormal Lab Results - Last 24 Hours (Table) 08/07/18 08/07/18 08/07/18 Range/Units 16:56 19:15 20:06 Neutrophils # (1.3-7.7) k/uL Lymphocytes # (1.0-4.8) k/uL Creatinine (0.52-1.04) mg/dL Glucose (74-99) mg/dL POC Glucose (mg/dL) 115 H 115 H 106 H (75-99) mg/dL Calcium (8.4-10.2) mg/dL Total Protein (6.3-8.2) g/dL Albumin (3.5-5.0) g/dL 08/08/18 08/08/18 Range/Units 07:25 07:25 Neutrophils # 8.0 H (1.3-7.7) k/uL Lymphocytes # 0.8 L (1.0-4.8) k/uL Creatinine 0.49 L (0.52-1.04) mg/dL Glucose 109 H (74-99) mg/dL POC Glucose (mg/dL) (75-99) mg/dL Calcium 8.2 L (8.4-10.2) mg/dL Total Protein 4.4 L (6.3-8.2) g/dL Albumin 2.3 L (3.5-5.0) g/dL Microbiology - Last 24 Hours (Table) 08/03/18 14:26 Blood Culture - Preliminary Blood No Growth after 96 hours
[2018-08-08 11:41] LABS: Glucose,Whole Blood 89 mg/dL (75-99)
[2018-08-08] MEDS: LACTATED RINGERS 1,000 ML IV SCH ×3 (15:54→19:44)
--- NOTE | 2018-08-08 16:38 | P.PN ---
Subjective Progress Note Date: 08/08/18 08/08/2017: Patient seen and examined. Patient is currently on 2 L nasal cannula. She states she is tolerating her diet. She states her pain is improving. Her cough is also improving. She denies any fevers and chills. She is sitting up in the chair watching TV. Objective - Vital Signs Vital signs: Vital Signs Temp 98.0 F 08/08/18 14:53 Pulse 62 08/08/18 15:56 Resp 16 08/08/18 15:46 BP 138/65 08/08/18 14:53 Pulse Ox 100 08/08/18 15:46 Intake & Output 08/07/18 08/08/18 08/08/18 18:59 06:59 18:59 Intake Total 125 450 725 Output Total 300 200 Balance -175 450 525 Weight 114 kg 114 kg Intake: Intake, IV Titration 450 725 Amount Dextrose 5%-0.9% NaCl 1, 450 625 000 ml @ 75 mls/hr IV . [id number] [facility] Rx#:[id number] Piperacillin-Tazobactam 3 100 .375 gm In Sodium Chloride 0.9% 100 ml @ 25 mls/hr IVPB Q8HR [facility] Rx# :[id number] Oral 125 Output: Urine 300 200 Uretheral (Jaimes) 200 Other: Voiding Method Indwelling Catheter Indwelling Catheter Indwelling Catheter - Exam Gen.: Patient is alert and oriented 3, no acute distress, obese Cardiovascular: Irregular rate and rhythm, S1/S2 Lungs: Diminished breath sounds at the bases with scattered crackles Abdomen: Soft mildly tender to palpation Extremities: + Edema, chronic venous stasis, stasis dermatitis - Labs CBC & Chem 7: 08/08/18 07:25 08/08/18 07:25 Labs: Abnormal Lab Results - Last 24 Hours (Table) 08/07/18 08/07/18 08/07/18 Range/Units 16:56 19:15 20:06 Neutrophils # (1.3-7.7) k/uL Lymphocytes # (1.0-4.8) k/uL Creatinine (0.52-1.04) mg/dL Glucose (74-99) mg/dL POC Glucose (mg/dL) 115 H 115 H 106 H (75-99) mg/dL Calcium (8.4-10.2) mg/dL Total Protein (6.3-8.2) g/dL Albumin (3.5-5.0) g/dL 08/08/18 08/08/18 Range/Units 07:25 07:25 Neutrophils # 8.0 H (1.3-7.7) k/uL Lymphocytes # 0.8 L (1.0-4.8) k/uL Creatinine 0.49 L (0.52-1.04) mg/dL Glucose 109 H (74-99) mg/dL POC Glucose (mg/dL) (75-99) mg/dL Calcium 8.2 L (8.4-10.2) mg/dL Total Protein 4.4 L (6.3-8.2) g/dL Albumin 2.3 L (3.5-5.0) g/dL Microbiology - Last 24 Hours (Table) 08/03/18 14:26 Blood Culture - Preliminary Blood No Growth after 96 hours Assessment and Plan Assessment: Acute hypoxic respiratory failure Abdominal pain with high grade small bowel obstruction Chronic persistent severe asthma Leukocytosis, resolved Lactic acidosis, resolved COPD CHF, diastolic Obstructive sleep apnea, noncompliant with CPAP Paroxysmal Atrial fibrillation rate controlled Recent hospitalization with severe sepsis and requiring mechanical ventilation Morbid obesity Hypertension Moderate PCM Hypertensive heart disease Dyslipidemia DM2 Severe pulmonary hypertension with RVSP 86 mmHg Valvular heart disease Recent LE cellulitis, MRSA and proteus Monitor I/O, urine output Duonebs, Add Pulmicort and Singulair Eliquis GI and DVT prophylaxis, IS and pulmonary hygiene Patient is seen and examined covering for Dr. Piper IS and pulmonary hygiene is reiterated to the patient PT and OT, OOB Respiratory status is at baseline
[2018-08-08 16:52] LABS: Glucose,Whole Blood 126 mg/dL (75-99)
[2018-08-08 19:57] LABS: Glucose,Whole Blood 138 mg/dL (75-99)
[2018-08-08] MEDS: MONTELUKAST 10 MG TAB PO SCH (21:31)
[2018-08-09] MEDS: PIPERACILLIN-TAZOBACTAM 3.375 GM in SODIUM CHLORIDE 0.9% 100 ML IVPB SCH ×3 (00:24→16:56)
[2018-08-09] MEDS: SODIUM CHLORIDE 0.9% 1,000 ML IV SCH ×2 (02:47→18:25)
[2018-08-09] MEDS: DEXTROSE 5%-0.9% NACL 1,000 ML IV SCH ×2 (02:47→16:56)
--- NOTE | 2018-08-09 02:58 | P.PN ---
Subjective Progress Note Date: 08/09/18 08/09/2018: Patient seen and examined. Patient is currently on 2 L nasal cannula with O2 saturation 99%. The patient states her pain is well-controlled. States that she is tired. She has no needs or complaints at this time. Objective - Vital Signs Vital signs: Vital Signs Temp 97.9 F 08/09/18 01:34 Pulse 52 L 08/09/18 01:34 Resp 16 08/09/18 01:34 BP 128/66 08/09/18 01:34 Pulse Ox 98 08/09/18 01:34 Intake & Output 08/08/18 08/08/18 08/09/18 06:59 18:59 06:59 Intake Total 450 785 Output Total 200 200 Balance 450 585 -200 Weight 114 kg Intake: Intake, IV Titration 450 725 Amount Dextrose 5%-0.9% NaCl 1, 450 625 000 ml @ 75 mls/hr IV . [id number] [facility] Rx#:[id number] Piperacillin-Tazobactam 3 100 .375 gm In Sodium Chloride 0.9% 100 ml @ 25 mls/hr IVPB Q8HR [facility] Rx# :[id number] Oral 60 Output: Urine 200 200 Other: Voiding Method Indwelling Catheter Indwelling Catheter Indwelling Catheter - Exam Gen.: Patient is alert and oriented 3, no acute distress, obese Cardiovascular: Irregular rate and rhythm, S1/S2 Lungs: Diminished breath sounds at the bases with scattered crackles Abdomen: Soft mildly tender to palpation Extremities: + Edema, chronic venous stasis, stasis dermatitis - Labs CBC & Chem 7: 08/08/18 07:25 08/08/18 07:25 Labs: Abnormal Lab Results - Last 24 Hours (Table) 08/08/18 08/08/18 08/08/18 Range/Units 07:25 07:25 16:50 Neutrophils # 8.0 H (1.3-7.7) k/uL Lymphocytes # 0.8 L (1.0-4.8) k/uL Creatinine 0.49 L (0.52-1.04) mg/dL Glucose 109 H (74-99) mg/dL POC Glucose (mg/dL) 126 H (75-99) mg/dL Calcium 8.2 L (8.4-10.2) mg/dL Total Protein 4.4 L (6.3-8.2) g/dL Albumin 2.3 L (3.5-5.0) g/dL 08/08/18 Range/Units 19:56 Neutrophils # (1.3-7.7) k/uL Lymphocytes # (1.0-4.8) k/uL Creatinine (0.52-1.04) mg/dL Glucose (74-99) mg/dL POC Glucose (mg/dL) 138 H (75-99) mg/dL Calcium (8.4-10.2) mg/dL Total Protein (6.3-8.2) g/dL Albumin (3.5-5.0) g/dL Microbiology - Last 24 Hours (Table) 08/03/18 14:26 Blood Culture - Preliminary Blood No Growth after 120 hours Assessment and Plan Assessment: Acute hypoxic respiratory failure Abdominal pain with high grade small bowel obstruction Chronic persistent severe asthma Leukocytosis, resolved Lactic acidosis, resolved COPD CHF, diastolic Obstructive sleep apnea, noncompliant with CPAP Paroxysmal Atrial fibrillation rate controlled Recent hospitalization with severe sepsis and requiring mechanical ventilation Morbid obesity Hypertension Moderate PCM Hypertensive heart disease Dyslipidemia DM2 Severe pulmonary hypertension with RVSP 86 mmHg Valvular heart disease Recent LE cellulitis, MRSA and proteus Monitor I/O, urine output Duonebs, Add Pulmicort and Singulair Eliquis GI and DVT prophylaxis, IS and pulmonary hygiene Patient is seen and examined covering for Dr. Piper IS and pulmonary hygiene is reiterated to the patient PT and OT, OOB Respiratory status is at baseline
--- NOTE | 2018-08-09 06:42 | PN ---
PROGRESS NOTE DATE OF SERVICE: 08/08/2018. REASON FOR FOLLOW UP: 1. Incarcerated ventral hernia. 2. Lower extremity cellulitis. INTERVAL HISTORY: The patient is afebrile. The patient is breathing comfortably. Denies any chest pain. No cough. Abdominal pain is currently controlled. Denies any pain to the leg area. Redness has decreased. PHYSICAL EXAMINATION: Blood pressure 136/63 with a pulse of 74. Temperature 97.3. She is 100% on 2 L nasal cannula. General description is an elderly female up in the bed in no distress. Respiratory system: Unlabored breathing. Clear to auscultation anteriorly. Heart S1, S2. Regular rate and rhythm. Abdomen soft. Lower extremity some swelling and redness has decreased. LABS: Hemoglobin 11.7, white count 9.9, BUN of 9, creatinine 0.49. Blood culture negative. DIAGNOSTIC IMPRESSION AND PLAN: Patient admitted to the hospital with abdominal pain. She did have incarcerated ventral hernia status post partial omentectomy and repair of the same also with lower extremity cellulitis. The patient currently covered with Zosyn. White count normal. No fever. We will continue to monitor the patient closely. Continue supportive care. MMODL / IJN: [id number] /
[2018-08-09 07:02] LABS: Glucose,Whole Blood 109 mg/dL (75-99)
[2018-08-09] MEDS: INSULIN ASPART (NovoLOG) 100 UNIT/ML VIAL SQ SCH ×4 (07:18→20:32)
[2018-08-09] MEDS: IPRATROPIUM-ALBUTEROL 3 ML NEB INHALATION SCH ×4 (07:20→21:28)
[2018-08-09] MEDS: BUDESONIDE 0.5 MG/2 ML NEBU INHALATION SCH ×2 (07:20→21:28)
[2018-08-09] MEDS: AMIODARONE 200 MG TAB PO SCH ×2 (08:17→20:32)
[2018-08-09] MEDS: AMMONIUM LACTATE 12% LOTION 225 GM BTL TOPICAL SCH ×2 (08:17→20:33)
[2018-08-09] MEDS: APIXABAN 5 MG TAB PO SCH ×2 (08:18→20:32)
[2018-08-09] MEDS: PANTOPRAZOLE 40 MG TABLET PO SCH (08:18)
[2018-08-09] MEDS: METOPROLOL TARTRATE 25 MG TAB PO SCH ×2 (08:18→20:32)
[2018-08-09 08:50] LABS: Basophils # (A) 0.1 k/uL (0-0.2); Basophils % (A) 1 %; Eosinophils # (A) 0.2 k/uL (0-0.7); Eosinophils % (A) 2 %; HCT 38.8 % (34.0-46.0); HGB 12.3 gm/dL (11.4-16.0); Hypochromasia Slight; Lymphocytes # (A) 0.7 k/uL (1.0-4.8); Lymphocytes % (A) 8 %; MCH 28.7 pg (25.0-35.0); MCHC 31.7 g/dL (31.0-37.0); MCV 90.6 fL (80.0-100.0); Mean Platelet Volume 7.2; Monocytes # (A) 0.5 k/uL (0-1.0); Monocytes % (A) 6 %; Neutrophils # (A) 7.3 k/uL (1.3-7.7); Neutrophils % (A) 81 %; Platelet Count 341 k/uL (150-450); RBC 4.29 m/uL (3.80-5.40); RDW 14.7 % (11.5-15.5); WBC 8.9 k/uL (3.8-10.6)
[2018-08-09 09:03] LABS: ALT 26 U/L (9-52); AST 16 U/L (14-36); Albumin 2.3 g/dL (3.5-5.0); Alkaline Phosphatase 53 U/L (38-126); Anion Gap 3 mmol/L; Blood Urea Nitrogen 7 mg/dL (7-17); Calcium 8.2 mg/dL (8.4-10.2); Carbon Dioxide 30 mmol/L (22-30); Chloride 105 mmol/L (98-107); Glucose 130 mg/dL (74-99); Potassium 3.4 mmol/L (3.5-5.1); Sodium 138 mmol/L (137-145); Total Bilirubin 0.8 mg/dL (0.2-1.3); Total Protein 4.5 g/dL (6.3-8.2)
--- NOTE | 2018-08-09 10:43 | P.PN ---
Progress Note - Text Progress Note Date: 08/09/18 The patient feels slightly better. She still has some incisional pain. She has had flatus. On exam her vital signs are stable. Her abdomen soft. Status post exploratory laparotomy for small bowel resection. Patient will have her diet increased.
[2018-08-09 11:46] LABS: Glucose,Whole Blood 121 mg/dL (75-99)
--- NOTE | 2018-08-09 16:22 | P.PN ---
Subjective Progress Note Date: 08/09/18 This is a 78-year-old female patient of Dr. iKrby. Patient claimed residing at [facility] presented to the ER with complaints of right upper and right lower quadrant pain [address] completed showing high-grade small bowel traction proximal third to half level, transition point in the mid lower abdomen. Small bowel loops are dilated up to 4.2 cm and edematous with reactive mesenteric edema and mild ascites fluids. Prominent fecal distention of the rectum up to 6.7 cm. Moderate sized fat and ascites containing umbilical hernia measuring 3.7 cm wide. Patient was admitted to Dr. Lara. Patient was recently admitted to the prolonged hospital stay for acute hypoxic Estrace failure requiring intubation with severe sepsis with UTI and pneumonia and cellulitis. Patient also in A. fib and was started on anticoagulation during previous admission. Patient's additional medical history includes asthma, COPD, hyperlipidemia, essential hypertension, sleep apnea and depression. Patient does have NG tube in place which has provided some relief with abdominal discomfort. Patient's eliquis currently on hold due to possibility of surgery. Lovenox DVT prophylaxis has been added. Patient currently on Zosyn. At this time will consult cardiology services for preop clearance due to patient's extensive history including A. fib history. At this time patient is still c omplaining of some abdominal discomfort. Patient denies nausea vomiting. Patient denies diarrhea. Patient denies any urinary burning or frequency. Patient denies chest pain or shortness breath. On 08/05/2018 patient is alert and oriented 3 resting comfortably in bed. Discussed case with surgical services. Patient will likely have expiratory lap today with Dr. Lara. He was evaluated by cardiology services. Patient's home dose of eliquis currently on hold due to surgical intervention. Due to patient previously requiring mechanical ventilation within the past [address] Sloan for pulmonary care. Patient also having chronic lower extremity cellulitis. Patient was positive for MRSA during previous admission and treated with antibiotics. Will consult Dr. Kapadia at this time. At this time patient is still having some abdominal discomfort. NG remains in p lace. Patient denies chest pain or shortness of breath. Patient denies any nausea vomiting or diarrhea. On 08/06/2018 patient is alert and oriented resting comfortably in bed. Status post exploratory lap, lysis of adhesions and repair of incarcerated ventral hernia and omentectoy. Patient is currently postop day 1. Patient states her abdominal pain has improved. Patient denies chest pain or shortness of breath. Patient denies nausea vomiting or diarrhea. Patient denies any urinary burning or frequency. NG tube is in place. She remains nothing by mouth at this time. Cardiology pulmonary and infectious disease is following. On 08/07/2018 patient is alert and oriented. Patient is status post explatory laparoscopic postop day 2. She remains nothing by mouth at this time possible advancing to clear liquid diet per surgical services. Eliquis be resumed discussed with surgical services. At this time patient denies chest pain or shortness breath. Patient denies nausea vomiting or diarrhea. Patient denies any urinary burning or frequency On 08/08/2018 patient is alert and oriented. Patient is currently postop day 3. Patient is passing gas at this time. Diet to be advanced per surgical services. Eliquis has been resumed. NG tube has been removed. Consent was from her encouraged. At this time patient denies chest pain or shortness breath. Patient denies nausea vomiting or diarrhea. Patient denies any urinary burning or frequency. On 08/09/2018 patient is alert and oriented 3 she is postoperative day #4 she is tolerating diet well and diet is being advanced she is passing gas she did not have any bowel movement yet is no fever or chills no headache or dizziness no chest pain no shortness of breath no cough no nausea or vomiting no abdominal pain no diarrhea and no urinary symptoms Objective - Vital Signs Vital signs: Vital Signs Temp 98.2 F 08/09/18 15:00 Pulse 63 08/09/18 15:00 Resp 15 08/09/18 15:00 BP 122/73 08/09/18 15:00 Pulse Ox 100 08/09/18 15:00 Intake & Output 08/08/18 08/09/18 08/09/18 18:59 06:59 18:59 Intake Total 785 950 480 Output Total 200 450 Balance 585 500 480 Weight 114 kg Intake: Intake, IV Titration 725 750 Amount Dextrose 5%-0.9% NaCl 1, 625 750 000 ml @ 75 mls/hr IV . [id number] [facility]#:[id number] Piperacillin-Tazobactam 3 100 .375 gm In Sodium Chloride 0.9% 100 ml @ 25 mls/hr IVPB Q8HR [facility] Rx# :[id number] Oral 60 200 480 Output: Urine 200 450 Uretheral (Jaimes) 250 Other: Voiding Method Indwelling Catheter Indwelling Catheter Indwelling Catheter - Exam Head normocephalic and atraumatic Neck supple no JVD no goiter Lungs clear to auscultation bilaterally no wheezing or crackles Heart regular rate and rhythm S1-S2, no rub or gallop Abdomen is soft some tenderness to palpation. Some shadowing noted to dressing. Midline incision. Extremities bilateral lower extremity erythema Neuro alert and orientated to 3 no gross focal deficits - Labs CBC & Chem 7: 08/09/18 08:21 08/09/18 08:21 Labs: Abnormal Lab Results - Last 24 Hours (Table) 08/08/18 08/08/18 08/09/18 Range/Units 16:50 19:56 07:00 Lymphocytes # (1.0-4.8) k/uL Potassium (3.5-5.1) mmol/L Creatinine (0.52-1.04) mg/dL Glucose (74-99) mg/dL POC Glucose (mg/dL) 126 H 138 H 109 H (75-99) mg/dL Calcium (8.4-10.2) mg/dL Total Protein (6.3-8.2) g/dL Albumin (3.5-5.0) g/dL 08/09/18 08/09/18 08/09/18 Range/Units 08:21 08:21 11:45 Lymphocytes # 0.7 L (1.0-4.8) k/uL Potassium 3.4 L (3.5-5.1) mmol/L Creatinine 0.47 L (0.52-1.04) mg/dL Glucose 130 H (74-99) mg/dL POC Glucose (mg/dL) 121 H (75-99) mg/dL Calcium 8.2 L (8.4-10.2) mg/dL Total Protein 4.5 L (6.3-8.2) g/dL Albumin 2.3 L (3.5-5.0) g/dL Microbiology - Last 24 Hours (Table) 08/03/18 14:26 Blood Culture - Preliminary Blood No Growth after 120 hours Assessment and Plan Plan: 1. High-grade small bowel obstruction. Repeat abdominal x-ray ordered per surgical services. Patient currently nothing by mouth NG tube in place. Repeat abdominal x-ray completed showing solitary dilated loop of small bowel remain centralized within the abdomen high-grade small bowel obstruction. Discussed case with surgical nurse practitioner. Status post Status post exploratory lap, lysis of adhesions and repair of incarcerated ventral hernia and omentectoy. Patient is currently postop day 3. Patient is nothing by mouth. Patient is passing gas at this time. Diet to be advanced per surgical services. NG tube has been removed 2. History of paroxysmal atrial flutter fibrillation. Patient is currently in normal sinus rhythm. Patient's eliquis currently on hold due to possible surgical intervention. she was evaluated by cardiology services. Per cardiology patient is high risk due to multiple comorbid conditions. 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 History of recent admission for sepsis requiring mechanical ventilation.Dr. Garrett has been consulted for pulmonary care due to recent intubation 4. History of COPD 6. History of diabetes mellitus type 2 patient maintained on sliding scale 7. History of arthritis 8. History of tricuspid regurg 9. History of essential hypertension 10. History of obstructive sleep apnea 11. Bilateral lower extremity cellulitis Previous history of cellulitis with MRSA. Will consult Dr. Kapadia at this time due to increase lower extremity redness. Patient currently on Zosyn. Per infectious disease cellulitis is improving, patient may be transitioned to oral antibiotic DVT prophylaxis eliquis has been resumed. GI prophylaxis Protonix Patient planning to return to [facility] upon discharge
[2018-08-09 16:49] LABS: Glucose,Whole Blood 127 mg/dL (75-99)
[2018-08-09 20:11] LABS: Glucose,Whole Blood 203 mg/dL (75-99)
[2018-08-09] MEDS: MONTELUKAST 10 MG TAB PO SCH (20:32)
[2018-08-10] MEDS: PIPERACILLIN-TAZOBACTAM 3.375 GM in SODIUM CHLORIDE 0.9% 100 ML IVPB SCH ×3 (00:03→18:06)
[2018-08-10] MEDS: SODIUM CHLORIDE 0.9% 1,000 ML IV SCH ×2 (06:03→20:44)
[2018-08-10 07:17] LABS: Glucose,Whole Blood 75 mg/dL (75-99)
[2018-08-10] MEDS: IPRATROPIUM-ALBUTEROL 3 ML NEB INHALATION SCH ×4 (07:28→21:27)
[2018-08-10] MEDS: BUDESONIDE 0.5 MG/2 ML NEBU INHALATION SCH ×2 (07:28→21:26)
[2018-08-10] MEDS: INSULIN ASPART (NovoLOG) 100 UNIT/ML VIAL SQ SCH ×4 (07:47→20:31)
[2018-08-10 07:56] LABS: Basophils # (A) 0.1 k/uL (0-0.2); Basophils % (A) 1 %; Eosinophils # (A) 0.3 k/uL (0-0.7); Eosinophils % (A) 3 %; HCT 38.5 % (34.0-46.0); HGB 12.1 gm/dL (11.4-16.0); Lymphocytes % (A) 11 %; MCH 28.1 pg (25.0-35.0); MCHC 31.4 g/dL (31.0-37.0); MCV 89.4 fL (80.0-100.0); Mean Platelet Volume 6.8; Monocytes # (A) 0.9 k/uL (0-1.0); Monocytes % (A) 9 %; Neutrophils # (A) 6.7 k/uL (1.3-7.7); Neutrophils % (A) 74 %; Platelet Count 373 k/uL (150-450); RBC 4.31 m/uL (3.80-5.40); RDW 14.7 % (11.5-15.5); WBC 9.1 k/uL (3.8-10.6)
[2018-08-10 08:16] LABS: ALT 24 U/L (9-52); AST 18 U/L (14-36); Albumin 2.3 g/dL (3.5-5.0); Alkaline Phosphatase 51 U/L (38-126); Anion Gap 3 mmol/L; Blood Urea Nitrogen 7 mg/dL (7-17); Calcium 8.3 mg/dL (8.4-10.2); Carbon Dioxide 31 mmol/L (22-30); Chloride 104 mmol/L (98-107); Glucose 67 mg/dL (74-99); Potassium 3.8 mmol/L (3.5-5.1); Sodium 138 mmol/L (137-145); Total Bilirubin 0.8 mg/dL (0.2-1.3); Total Protein 4.6 g/dL (6.3-8.2)
[2018-08-10] MEDS: METOPROLOL TARTRATE 25 MG TAB PO SCH ×2 (10:16→20:44)
[2018-08-10] MEDS: AMIODARONE 200 MG TAB PO SCH ×2 (10:16→20:44)
[2018-08-10] MEDS: APIXABAN 5 MG TAB PO SCH ×2 (10:16→20:44)
[2018-08-10] MEDS: PANTOPRAZOLE 40 MG TABLET PO SCH (10:16)
[2018-08-10] MEDS: AMMONIUM LACTATE 12% LOTION 225 GM BTL TOPICAL SCH ×2 (10:17→20:44)
--- NOTE | 2018-08-10 11:15 | P.PN ---
Progress Note - Text Progress Note Date: 08/10/18 The patient states she feels slightly better. She's been tolerating her diet. She has had significant flatus. On exam her vital signs are stable. Her abdomen soft. Incision site is clean dry and intact. There is minimal incisional pain. Resolving small bowel obstruction, small bowel resection. Patient will bleed most likely discharged home and asked 24-48 hours.
[2018-08-10] MEDS: HYDROmorphone 1 MG/ML 1 ML SYRINGE IVP PRN (11:33)
[2018-08-10 11:41] LABS: Glucose,Whole Blood 76 mg/dL (75-99)
--- NOTE | 2018-08-10 13:42 | P.PN ---
Subjective Progress Note Date: 08/10/18 This is a 78-year-old female patient of Dr. Kirby. Patient claimed residing at [facility] presented to the ER with complaints of right upper and right lower quadrant pain [address] completed showing high-grade small bowel traction proximal third to half level, transition point in the mid lower abdomen. Small bowel loops are dilated up to 4.2 cm and edematous with reactive mesenteric edema and mild ascites fluids. Prominent fecal distention of the rectum up to 6.7 cm. Moderate sized fat and ascites containing umbilical hernia measuring 3.7 cm wide. Patient was admitted to Dr. Lara. Patient was recently admitted to the prolonged hospital stay for acute hypoxic Estrace failure requiring intubation with severe sepsis with UTI and pneumonia and cellulitis. Patient also in A. fib and was started on anticoagulation during previous admission. Patient's additional medical history includes asthma, COPD, hyperlipidemia, essential hypertension, sleep apnea and depression. Patient does have NG tube in place which has provided some relief with abdominal discomfort. Patient's eliquis currently on hold due to possibility of surgery. Lovenox DVT prophylaxis has been added. Patient currently on Zosyn. At this time will consult cardiology services for preop clearance due to patient's extensive history including A. fib history. At this time patient is still c omplaining of some abdominal discomfort. Patient denies nausea vomiting. Patient denies diarrhea. Patient denies any urinary burning or frequency. Patient denies chest pain or shortness breath. On 08/05/2018 patient is alert and oriented 3 resting comfortably in bed. Discussed case with surgical services. Patient will likely have expiratory lap today with Dr. Lara. He was evaluated by cardiology services. Patient's home dose of eliquis currently on hold due to surgical intervention. Due to patient previously requiring mechanical ventilation within the past [address] Sloan for pulmonary care. Patient also having chronic lower extremity cellulitis. Patient was positive for MRSA during previous admission and treated with antibiotics. Will consult Dr. Kapadia at this time. At this time patient is still having some abdominal discomfort. NG remains in p lace. Patient denies chest pain or shortness of breath. Patient denies any nausea vomiting or diarrhea. On 08/06/2018 patient is alert and oriented resting comfortably in bed. Status post exploratory lap, lysis of adhesions and repair of incarcerated ventral hernia and omentectoy. Patient is currently postop day 1. Patient states her abdominal pain has improved. Patient denies chest pain or shortness of breath. Patient denies nausea vomiting or diarrhea. Patient denies any urinary burning or frequency. NG tube is in place. She remains nothing by mouth at this time. Cardiology pulmonary and infectious disease is following. On 08/07/2018 patient is alert and oriented. Patient is status post explatory laparoscopic postop day 2. She remains nothing by mouth at this time possible advancing to clear liquid diet per surgical services. Eliquis be resumed discussed with surgical services. At this time patient denies chest pain or shortness breath. Patient denies nausea vomiting or diarrhea. Patient denies any urinary burning or frequency On 08/08/2018 patient is alert and oriented. Patient is currently postop day 3. Patient is passing gas at this time. Diet to be advanced per surgical services. Eliquis has been resumed. NG tube has been removed. Consent was from her encouraged. At this time patient denies chest pain or shortness breath. Patient denies nausea vomiting or diarrhea. Patient denies any urinary burning or frequency. On 08/09/2018 patient is alert and oriented 3 she is postoperative day #4 she is tolerating diet well and diet is being advanced she is passing gas she did not have any bowel movement yet is no fever or chills no headache or dizziness no chest pain no shortness of breath no cough no nausea or vomiting no abdominal pain no diarrhea and no urinary symptoms. On 08/10/2018 patient was seen and examined on the medical floor she is postoperative day #5 she is alert and oriented 3 in no apparent distress she is complaining of abdominal pain when she coughs or moves otherwise no pain she stated that she had 1 bowel movement she is still feeling weak and unsteady on her feet otherwise she denies any complaints there is no fever or chills no headache or dizziness no chest pain no shortness of breath no cough no nausea or vomiting no abdominal pain no diarrhea and no urinary symptoms Objective - Vital Signs Vital signs: Vital Signs Temp 97.9 F 08/10/18 07:35 Pulse 80 08/10/18 07:39 Resp 20 08/10/18 07:35 BP 146/82 08/10/18 07:35 Pulse Ox 96 08/10/18 07:35 Intake & Output 08/09/18 08/10/18 08/10/18 18:59 06:59 18:59 Intake Total 1200 1230 240 Output Total 150 250 Balance 1050 980 240 Intake: Intake, IV Titration 600 750 Amount Dextrose 5%-0.9% NaCl 1, 500 000 ml @ 50 mls/hr IV . Q20H [facility] Rx#:[id number] Piperacillin-Tazobactam 3 100 .375 gm In Sodium Chloride 0.9% 100 ml @ 25 mls/hr IVPB Q8HR [facility] Rx# :[id number] Sodium Chloride 0.9% 1, 750 000 ml @ 75 mls/hr IV . [id number] [facility] Rx#:[id number] Oral 600 480 240 Output: Urine 150 250 Uretheral (Jaimes) 250 Other: Voiding Method Indwelling Catheter Indwelling Catheter Indwelling Catheter - Exam Head normocephalic and atraumatic Neck supple no JVD no goiter Lungs clear to auscultation bilaterally no wheezing or crackles Heart regular S1 and S2 no gallops no murmurs Abdomen is soft some tenderness to palpation, normal bowel sounds no organomegaly no palpable masses Extremities bilateral lower extremity erythema Neuro alert and orientated to 3 no gross focal deficits - Labs CBC & Chem 7: 08/10/18 07:08 08/10/18 07:08 Labs: Abnormal Lab Results - Last 24 Hours (Table) 08/09/18 08/09/18 08/10/18 Range/Units 16:48 20:00 07:08 Carbon Dioxide 31 H (22-30) mmol/L Glucose 67 L (74-99) mg/dL POC Glucose (mg/dL) 127 H 203 H (75-99) mg/dL Calcium 8.3 L (8.4-10.2) mg/dL Total Protein 4.6 L (6.3-8.2) g/dL Albumin 2.3 L (3.5-5.0) g/dL Microbiology - Last 24 Hours (Table) 08/03/18 14:26 Blood Culture - Final Blood No Growth after 144 hours Assessment and Plan Plan: 1. High-grade small bowel obstruction. Repeat abdominal x-ray ordered per surgical services. Patient currently nothing by mouth NG tube in place. Repeat abdominal x-ray completed showing solitary dilated loop of small bowel remain centralized within the abdomen high-grade small bowel obstruction. Discussed case with surgical nurse practitioner. Status post Status post exploratory lap, lysis of adhesions and repair of incarcerated ventral hernia and omentectoy. Patient is currently postop day 3. Patient is nothing by mouth. Patient is passing gas at this time. Diet to be advanced per surgical services. NG tube has been removed 2. History of paroxysmal atrial flutter fibrillation. Patient is currently in normal sinus rhythm. Patient's eliquis currently on hold due to possible surgical intervention. she was evaluated by cardiology services. Per cardiology patient is high risk due to multiple comorbid conditions. 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 History of recent admission for sepsis requiring mechanical ventilation.Dr. Garrett has been consulted for pulmonary care due to recent intubation 4. History of COPD 6. History of diabetes mellitus type 2 patient maintained on sliding scale 7. History of arthritis 8. History of tricuspid regurg 9. History of essential hypertension 10. History of obstructive sleep apnea 11. Bilateral lower extremity cellulitis Previous history of cellulitis with MRSA. Will consult Dr. Kapadia at this time due to increase lower extremity redness. Patient currently on Zosyn. Per infectious disease cellulitis is impr oving, patient may be transitioned to oral antibiotic DVT prophylaxis eliquis has been resumed. GI prophylaxis Protonix Patient planning to return to [facility] upon discharge Possible discharge in the next 1-2 days
[2018-08-10 17:12] LABS: Glucose,Whole Blood 89 mg/dL (75-99)
[2018-08-10 19:38] LABS: Amorphous Sediment,Urine Rare /hpf; Appearance,Urine Cloudy (Clear); Bilirubin,Urine Negative (Negative); Blood,Urine Large (Negative); Calcium Oxalate Crystals,Urine Rare /hpf; Color,Urine Light Red; Glucose,Urine (UA) Negative (Negative); Hyaline Casts,Urine 19 /lpf (0-2); Ketones,Urine Negative (Negative); Leukocyte Esterase,Urine Small (Negative); Mucus,Urine Few /hpf; Nitrite,Urine Negative (Negative); Protein,Urine 1+ (Negative); RBC,Urine >182 /hpf (0-5); Squamous Epithelial Cell,Urine 3 /hpf (0-4); WBC,Urine 17 /hpf (0-5)
[2018-08-10 20:02] LABS: Glucose,Whole Blood 107 mg/dL (75-99)
--- NOTE | 2018-08-10 20:10 | PN ---
PROGRESS NOTE She has no pain, no dyspnea and is doing better overall. On physical examination, respiratory rate is 18, pulse rate is 76, blood pressure 147/87, O2 saturation on 2 L by nasal cannula is 100%. HEENT is unremarkable. Chest reveals diminished breath sounds, but no clear wheeze. Cardiovascular system: Reveals an S1, S2. Abdomen shows fresh surgical dressing. There is 1+ pedal edema. White count is 9.1, hemoglobin of 12.1, sodium 138, potassium 3.8, chloride 104, bicarb 31. IMPRESSION: 1. Acute hypoxic respiratory failure. 2. High-grade small bowel obstruction status post surgery. 3. Asthma. 4. Severe pulmonary hypertension with valvular heart disease. Continue current medications, Eliquis, increase her activity level. MMODL / IJN: [id number] /
[2018-08-10] MEDS: MONTELUKAST 10 MG TAB PO SCH (20:44)
[2018-08-11] MEDS: PIPERACILLIN-TAZOBACTAM 3.375 GM in SODIUM CHLORIDE 0.9% 100 ML IVPB SCH ×4 (00:25→23:46)
[2018-08-11] MEDS: SODIUM CHLORIDE 0.9% 1,000 ML IV SCH ×2 (04:57→16:54)
[2018-08-11 06:58] LABS: Glucose,Whole Blood 82 mg/dL (75-99)
[2018-08-11] MEDS: INSULIN ASPART (NovoLOG) 100 UNIT/ML VIAL SQ SCH ×4 (07:30→21:56)
[2018-08-11] MEDS: HYDROmorphone 1 MG/ML 1 ML SYRINGE IVP PRN (07:33)
[2018-08-11] MEDS: BUDESONIDE 0.5 MG/2 ML NEBU INHALATION SCH ×2 (08:10→20:36)
[2018-08-11] MEDS: IPRATROPIUM-ALBUTEROL 3 ML NEB INHALATION SCH ×4 (08:10→20:37)
[2018-08-11 08:20] LABS: Glucose,Whole Blood 83 mg/dL (75-99)
[2018-08-11 08:23] LABS: Basophils # (A) 0.1 k/uL (0-0.2); Basophils % (A) 1 %; Eosinophils # (A) 0.4 k/uL (0-0.7); Eosinophils % (A) 3 %; HCT 39.9 % (34.0-46.0); HGB 12.8 gm/dL (11.4-16.0); Lymphocytes # (A) 0.9 k/uL (1.0-4.8); Lymphocytes % (A) 8 %; MCH 28.3 pg (25.0-35.0); MCHC 32.1 g/dL (31.0-37.0); Mean Platelet Volume 7.4; Monocytes # (A) 0.8 k/uL (0-1.0); Monocytes % (A) 7 %; Neutrophils # (A) 9.5 k/uL (1.3-7.7); Neutrophils % (A) 80 %; Platelet Count 330 k/uL (150-450); RBC 4.53 m/uL (3.80-5.40); RDW 14.9 % (11.5-15.5); WBC 11.9 k/uL (3.8-10.6)
[2018-08-11 10:44] LABS: ALT 23 U/L (9-52); AST 20 U/L (14-36); Albumin 2.3 g/dL (3.5-5.0); Alkaline Phosphatase 57 U/L (38-126); Anion Gap 3 mmol/L; Blood Urea Nitrogen 5 mg/dL (7-17); Calcium 8.1 mg/dL (8.4-10.2); Carbon Dioxide 28 mmol/L (22-30); Chloride 107 mmol/L (98-107); Glucose 92 mg/dL (74-99); Potassium 3.7 mmol/L (3.5-5.1); Sodium 138 mmol/L (137-145); Total Bilirubin 0.6 mg/dL (0.2-1.3); Total Protein 4.5 g/dL (6.3-8.2)
[2018-08-11] MEDS: AMIODARONE 200 MG TAB PO SCH ×2 (10:52→22:19)
[2018-08-11] MEDS: PANTOPRAZOLE 40 MG TABLET PO SCH (10:53)
[2018-08-11] MEDS: APIXABAN 5 MG TAB PO SCH ×2 (10:53→22:19)
[2018-08-11] MEDS: METOPROLOL TARTRATE 25 MG TAB PO SCH ×2 (10:53→22:19)
--- NOTE | 2018-08-11 11:46 | P.PN ---
Subjective Progress Note Date: 08/11/18 This is a 78-year-old female patient of Dr. Kirby. Patient claimed residing at [facility] presented to the ER with complaints of right upper and right lower quadrant pain [address] completed showing high-grade small bowel traction proximal third to half level, transition point in the mid lower abdomen. Small bowel loops are dilated up to 4.2 cm and edematous with reactive mesenteric edema and mild ascites fluids. Prominent fecal distention of the rectum up to 6.7 cm. Moderate sized fat and ascites containing umbilical hernia measuring 3.7 cm wide. Patient was admitted to Dr. Lara. Patient was recently admitted to the prolonged hospital stay for acute hypoxic Estrace failure requiring intubation with severe sepsis with UTI and pneumonia and cellulitis. Patient also in A. fib and was started on anticoagulation during previous admission. Patient's additional medical history includes asthma, COPD, hyperlipidemia, essential hypertension, sleep apnea and depression. Patient does have NG tube in place which has provided some relief with abdominal discomfort. Patient's eliquis currently on hold due to possibility of surgery. Lovenox DVT prophylaxis has been added. Patient currently on Zosyn. At this time will consult cardiology services for preop clearance due to patient's extensive history including A. fib history. At this time patient is still c omplaining of some abdominal discomfort. Patient denies nausea vomiting. Patient denies diarrhea. Patient denies any urinary burning or frequency. Patient denies chest pain or shortness breath. On 08/05/2018 patient is alert and oriented 3 resting comfortably in bed. Discussed case with surgical services. Patient will likely have expiratory lap today with Dr. Lara. He was evaluated by cardiology services. Patient's home dose of eliquis currently on hold due to surgical intervention. Due to patient previously requiring mechanical ventilation within the past [address] Sloan for pulmonary care. Patient also having chronic lower extremity cellulitis. Patient was positive for MRSA during previous admission and treated with antibiotics. Will consult Dr. Kapadia at this time. At this time patient is still having some abdominal discomfort. NG remains in p lace. Patient denies chest pain or shortness of breath. Patient denies any nausea vomiting or diarrhea. On 08/06/2018 patient is alert and oriented resting comfortably in bed. Status post exploratory lap, lysis of adhesions and repair of incarcerated ventral hernia and omentectoy. Patient is currently postop day 1. Patient states her abdominal pain has improved. Patient denies chest pain or shortness of breath. Patient denies nausea vomiting or diarrhea. Patient denies any urinary burning or frequency. NG tube is in place. She remains nothing by mouth at this time. Cardiology pulmonary and infectious disease is following. On 08/07/2018 patient is alert and oriented. Patient is status post explatory laparoscopic postop day 2. She remains nothing by mouth at this time possible advancing to clear liquid diet per surgical services. Eliquis be resumed discussed with surgical services. At this time patient denies chest pain or shortness breath. Patient denies nausea vomiting or diarrhea. Patient denies any urinary burning or frequency On 08/08/2018 patient is alert and oriented. Patient is currently postop day 3. Patient is passing gas at this time. Diet to be advanced per surgical services. Eliquis has been resumed. NG tube has been removed. Consent was from her encouraged. At this time patient denies chest pain or shortness breath. Patient denies nausea vomiting or diarrhea. Patient denies any urinary burning or frequency. On 08/09/2018 patient is alert and oriented 3 she is postoperative day #4 she is tolerating diet well and diet is being advanced she is passing gas she did not have any bowel movement yet is no fever or chills no headache or dizziness no chest pain no shortness of breath no cough no nausea or vomiting no abdominal pain no diarrhea and no urinary symptoms. On 08/10/2018 patient was seen and examined on the medical floor she is postoperative day #5 she is alert and oriented 3 in no apparent distress she is complaining of abdominal pain when she coughs or moves otherwise no pain she stated that she had 1 bowel movement she is still feeling weak and unsteady on her feet otherwise she denies any complaints there is no fever or chills no headache or dizziness no chest pain no shortness of breath no cough no nausea or vomiting no abdominal pain no diarrhea and no urinary symptoms On 08/11/2017 patient is currently postop day 6. Patient is alert and oriented patient is having bowel movements. Patient has been on advanced diet. At this time patient denies chest pain or shortness of breath. Patient denies nausea vomiting or diarrhea. Denies any urinary burning or frequency. Anticipate discharge per surgical services within the next 24-48 hours Objective - Vital Signs Vital signs: Vital Signs Temp 97.4 F L 08/11/18 07:30 Pulse 64 08/11/18 08:22 Resp 16 08/11/18 07:30 BP 169/74 08/11/18 07:30 Pulse Ox 100 08/11/18 07:30 Intake & Output 08/10/18 08/11/18 08/11/18 18:59 06:59 18:59 Intake Total 840 1440 Output Total 220 800 Balance 620 640 Intake: IV 600 1000 Sodium Chloride 0.9% 1, 600 1000 000 ml @ 100 mls/hr IV . Q10H [facility] Rx#:[id number] Intake, IV Titration 100 Amount Piperacillin-Tazobactam 3 100 .375 gm In Sodium Chloride 0.9% 100 ml @ 25 mls/hr IVPB Q8HR [facility] Rx# :[id number] Oral 240 340 Output: Urine 220 800 Uretheral (Jaimes) 220 800 Other: Voiding Method Indwelling Catheter Indwelling Catheter # Bowel Movements 1 - Exam Head normocephalic Neck supple Lungs clear to auscultation bilaterally no wheezing or crackles Heart regular rate and rhythm S1-S2, no rub or gallop Abdomen is soft some tenderness to palpation. Some shadowing noted to dressing. Midline incision. Extremities bilateral lower extremity erythema Neuro alert and orientated to 3 - Labs CBC & Chem 7: 08/11/18 07:29 08/11/18 09:21 Labs: Abnormal Lab Results - Last 24 Hours (Table) 08/10/18 08/10/18 08/11/18 Range/Units 19:00 20:00 07:29 WBC 11.9 H (3.8-10.6) k/uL Neutrophils # 9.5 H (1.3-7.7) k/uL Lymphocytes # 0.9 L (1.0-4.8) k/uL BUN (7-17) mg/dL Creatinine (0.52-1.04) mg/dL POC Glucose (mg/dL) 107 H (75-99) mg/dL Calcium (8.4-10.2) mg/dL Total Protein (6.3-8.2) g/dL Albumin (3.5-5.0) g/dL Urine Appearance Cloudy H (Clear) Urine Protein 1+ H (Negative) Urine Blood Large H (Negative) Ur Leukocyte Esterase Small H (Negative) Urine RBC >182 H (0-5) /hpf Urine WBC 17 H (0-5) /hpf Urine WBC Clumps Moderate H (None) /hpf Calcium Oxalate Crystal Rare H (None) /hpf Amorphous Sediment Rare H (None) /hpf Hyaline Casts 19 H (0-2) /lpf Urine Mucus Few H (None) /hpf 08/11/18 Range/Units 09:21 WBC (3.8-10.6) k/uL Neutrophils # (1.3-7.7) k/uL Lymphocytes # (1.0-4.8) k/uL BUN 5 L (7-17) mg/dL Creatinine 0.46 L (0.52-1.04) mg/dL POC Glucose (mg/dL) (75-99) mg/dL Calcium 8.1 L (8.4-10.2) mg/dL Total Protein 4.5 L (6.3-8.2) g/dL Albumin 2.3 L (3.5-5.0) g/dL Urine Appearance (Clear) Urine Protein (Negative) Urine Blood (Negative) Ur Leukocyte Esterase (Negative) Urine RBC (0-5) /hpf Urine WBC (0-5) /hpf Urine WBC Clumps (None) /hpf Calcium Oxalate Crystal (None) /hpf Amorphous Sediment (None) /hpf Hyaline Casts (0-2) /lpf Urine Mucus (None) /hpf Assessment and Plan Assessment: 1. High-grade small bowel obstruction. Repeat abdominal x-ray ordered per surgical services. Patient currently nothing by mouth NG tube in place. Repeat abdominal x-ray completed showing solitary dilated loop of small bowel remain centralized within the abdomen high-grade small bowel obstruction. Discussed case with surgical nurse practitioner. Status post Status post exploratory lap, lysis of adhesions and repair of incarcerated ventral hernia and omentectoy. Patient is currently postop day 3. Patient is nothing by mouth. Patient is having bowel movements. Diet has been advanced to low fiber diet 2. History of paroxysmal atrial flutter fibrillation. Patient is currently in normal sinus rhythm. Patient's eliquis currently on hold due to possible surgical intervention. she was evaluated by cardiology services. Per cardiology patient is high risk due to multiple comorbid conditions. Discussed with surgical services [employer]ER okay to resume eliquis 3. History of recent admission for sepsis requiring mechanical ventilation.Dr. Garrett has been consulted for pulmonary care due to recent intubation 4. History of COPD 6. History of diabetes mellitus type 2 patient maintained on sliding scale 7. History of arthritis 8. History of tricuspid regurg 9. History of essential hypertension 10. History of obstructive sleep apnea 11. Bilateral lower extremity cellulitis Previous history of cellulitis with MRSA. Will consult Dr. Kapadia at this time due to increase lower extremity redness. Patient currently on Zosyn. Per infectious disease cellulitis is im proving, patient may be transitioned to oral antibiotic DVT prophylaxis eliquis has been resumed. GI prophylaxis Protonix Patient planning to return to [facility] upon discharge Possible discharge in the next 1-2 days I performed an examination of the patient and discussed their management with the Nurse Practitioner. I have reviewed the Nurse Practitioner's notes and agree with the documented findings and plan of care
[2018-08-11 11:47] LABS: Glucose,Whole Blood 85 mg/dL (75-99)
--- NOTE | 2018-08-11 12:02 | P.PN ---
Subjective Progress Note Date: 08/11/18 CHIEF COMPLAINT: Abdominal pain HISTORY OF PRESENT ILLNESS: Patient examined at the bedside. Patient is status post exploratory laparotomy, lysis of adhesions, repair of incarcerated ventral hernia, and omentectomy. Patient passing flatus and having BMs. Tolerating PO intake but reports decreased appetite. Denies nausea or vomiting. Patient states she has not used IS yet. patient demonstrated use at the bedside. Patient pulling less than 500 mL. Reinforced use of incentive spirometer 10 times an hour. WBC 11.9. Hemoglobin 12.8. PHYSICAL EXAM: VITAL SIGNS: Reviewed. GENERAL: Well-developed in no acute distress. HEENT: No sclera icterus. Extraocular movements grossly intact. Moist buccal mucosa. Head is atraumatic, normocephalic. ABDOMEN: Obese. Soft. Nondistended. Positive bowel sounds. NEUROLOGIC: Alert and oriented. Cranial nerves II through XII grossly intact. ASSESSMENT: 1. Abdominal pain 2. High grade small bowel obstruction 3. Status post exploratory laparotomy, lysis of adhesions, repair of incarcerated ventral hernia, and omentectomy PLAN: 1. Continue current diet 2. Incentive spirometry. Reinforced using IS with patient. 3. Pain control 4. Activity as tolerated. PT/OT. Patient to be OOB and ambulatory as tolerated 5. Anticipate discharge to [facility] tomorrow if patient remains stable Nurse practitioner note has been reviewed by physician. Signing provider agrees with the documented findings, assessment, and plan of care. Objective - Vital Signs Vital signs: Vital Signs Temp 97.4 F L 08/11/18 07:30 Pulse 64 08/11/18 08:22 Resp 16 08/11/18 07:30 BP 169/74 08/11/18 07:30 Pulse Ox 100 08/11/18 07:30 Intake & Output 08/10/18 08/11/18 08/11/18 18:59 06:59 18:59 Intake Total 840 1440 Output Total 220 800 Balance 620 640 Intake: IV 600 1000 Sodium Chloride 0.9% 1, 600 1000 000 ml @ 100 mls/hr IV . Q10H [facility] Rx#:[id number] Intake, IV Titration 100 Amount Piperacillin-Tazobactam 3 100 .375 gm In Sodium Chloride 0.9% 100 ml @ 25 mls/hr IVPB Q8HR [facility] Rx# :[id number] Oral 240 340 Output: Urine 220 800 Uretheral (Jaimes) 220 800 Other: Voiding Method Indwelling Catheter Indwelling Catheter # Bowel Movements 1 - Labs CBC & Chem 7: 08/11/18 07:29 08/11/18 09:21 Labs: Abnormal Lab Results - Last 24 Hours (Table) 08/10/18 08/10/18 08/11/18 Range/Units 19:00 20:00 07:29 WBC 11.9 H (3.8-10.6) k/uL Neutrophils # 9.5 H (1.3-7.7) k/uL Lymphocytes # 0.9 L (1.0-4.8) k/uL BUN (7-17) mg/dL Creatinine (0.52-1.04) mg/dL POC Glucose (mg/dL) 107 H (75-99) mg/dL Calcium (8.4-10.2) mg/dL Total Protein (6.3-8.2) g/dL Albumin (3.5-5.0) g/dL Urine Appearance Cloudy H (Clear) Urine Protein 1+ H (Negative) Urine Blood Large H (Negative) Ur Leukocyte Esterase Small H (Negative) Urine RBC >182 H (0-5) /hpf Urine WBC 17 H (0-5) /hpf Urine WBC Clumps Moderate H (None) /hpf Calcium Oxalate Crystal Rare H (None) /hpf Amorphous Sediment Rare H (None) /hpf Hyaline Casts 19 H (0-2) /lpf Urine Mucus Few H (None) /hpf 08/11/18 Range/Units 09:21 WBC (3.8-10.6) k/uL Neutrophils # (1.3-7.7) k/uL Lymphocytes # (1.0-4.8) k/uL BUN 5 L (7-17) mg/dL Creatinine 0.46 L (0.52-1.04) mg/dL POC Glucose (mg/dL) (75-99) mg/dL Calcium 8.1 L (8.4-10.2) mg/dL Total Protein 4.5 L (6.3-8.2) g/dL Albumin 2.3 L (3.5-5.0) g/dL Urine Appearance (Clear) Urine Protein (Negative) Urine Blood (Negative) Ur Leukocyte Esterase (Negative) Urine RBC (0-5) /hpf Urine WBC (0-5) /hpf Urine WBC Clumps (None) /hpf Calcium Oxalate Crystal (None) /hpf Amorphous Sediment (None) /hpf Hyaline Casts (0-2) /lpf Urine Mucus (None) /hpf
[2018-08-11] MEDS: AMMONIUM LACTATE 12% LOTION 225 GM BTL TOPICAL SCH ×2 (14:48→22:21)
[2018-08-11] MEDS ORDERED: HYDROcodone/APAP 5-325MG 1 EACH TAB PO PRN (14:51)
--- NOTE | 2018-08-11 17:05 | PN ---
PROGRESS NOTE DATE OF SERVICE: 08/11/2018. REASON FOR FOLLOWUP: 1. Incarcerated abdominal hernia. 2. Lower extremity cellulitis. INTERVAL HISTORY: The patient is currently afebrile. The patient is breathing comfortably. Denies having any chest pain or any cough. Abdominal pain has improved. No nausea, vomiting, or any diarrhea. No pain to the leg area. PHYSICAL EXAMINATION: Blood pressure 135/70 with a pulse of 74, temperature 97.6. She is 100% on 2 L nasal cannula. General description is an elderly female, lying in bed in no distress. Respiratory system: Unlabored breathing. Clear to auscultation anteriorly. Heart S1, S2. Regular rate and rhythm. Abdomen soft. Legs currently no swelling. No redness. LABS: Hemoglobin is 12.8, white count 11.9, BUN of 5, creatinine 0.46. DIAGNOSTIC IMPRESSION AND PLAN: Patient with incarcerated abdominal hernia, status post repair of the same without evidence of any bowel perforation. Also with evidence of lower extremity cellulitis, currently being treated with Zosyn with plan to finish therapy with oral Augmentin on discharge. Continue supportive care. MMODL / IJN: [id number] /
[2018-08-11 17:27] LABS: Glucose,Whole Blood 100 mg/dL (75-99)
[2018-08-11 20:05] LABS: Glucose,Whole Blood 116 mg/dL (75-99)
--- NOTE | 2018-08-11 20:33 | PN ---
PROGRESS NOTE DATE OF SERVICE: 08/11/2018 This patient is hemodynamically stable. She is not short of breath. She is tolerating a diet. On physical examination, her blood pressure is 165/70, respiratory rate of 15, pulse rate of 64, temperature 97.6. Oxygen saturation on 2 L via nasal cannula is 100%. HEENT is unremarkable. Chest is clear. Cardiovascular system is in S1, S2. Abdomen is soft. IMPRESSION AT THIS TIME: 1. Acute hypoxic respiratory failure. 2. High-grade small bowel obstruction. 3. Asthma. 4. Severe pulmonary hypertension with valvular heart disease. Continue Eliquis, current medications. Increase activity level. I agree with discharge planning with close outpatient followup. MMODL / IJN: [id number] /
[2018-08-11] MEDS: MONTELUKAST 10 MG TAB PO SCH (22:20)
[2018-08-12] MEDS: ONDANSETRON 4 MG/2 ML VIAL IVP PRN (04:50)
[2018-08-12 07:23] LABS: Glucose,Whole Blood 91 mg/dL (75-99)
[2018-08-12 08:08] LABS: Basophils # (A) 0.1 k/uL (0-0.2); Basophils % (A) 1 %; Eosinophils # (A) 0.3 k/uL (0-0.7); Eosinophils % (A) 3 %; HCT 41.2 % (34.0-46.0); HGB 12.7 gm/dL (11.4-16.0); Lymphocytes # (A) 0.9 k/uL (1.0-4.8); Lymphocytes % (A) 8 %; MCH 27.5 pg (25.0-35.0); MCHC 30.8 g/dL (31.0-37.0); MCV 89.3 fL (80.0-100.0); Mean Platelet Volume 6.8; Monocytes # (A) 0.8 k/uL (0-1.0); Monocytes % (A) 8 %; Neutrophils # (A) 8.6 k/uL (1.3-7.7); Neutrophils % (A) 79 %; Platelet Count 348 k/uL (150-450); RBC 4.61 m/uL (3.80-5.40); RDW 14.9 % (11.5-15.5); WBC 10.8 k/uL (3.8-10.6)
[2018-08-12 08:13] LABS: ALT 27 U/L (9-52); AST 16 U/L (14-36); Albumin 2.4 g/dL (3.5-5.0); Alkaline Phosphatase 58 U/L (38-126); Anion Gap 5 mmol/L; Blood Urea Nitrogen 4 mg/dL (7-17); Calcium 8.5 mg/dL (8.4-10.2); Carbon Dioxide 30 mmol/L (22-30); Chloride 104 mmol/L (98-107); Glucose 83 mg/dL (74-99); Potassium 3.6 mmol/L (3.5-5.1); Sodium 139 mmol/L (137-145); Total Bilirubin 0.6 mg/dL (0.2-1.3); Total Protein 4.7 g/dL (6.3-8.2)
[2018-08-12 08:16] VITALS: BP 166/93; RESP 14; TEMP 97.8
[2018-08-12] MEDS: PIPERACILLIN-TAZOBACTAM 3.375 GM in SODIUM CHLORIDE 0.9% 100 ML IVPB SCH (08:16)
[2018-08-12] MEDS: AMMONIUM LACTATE 12% LOTION 225 GM BTL TOPICAL SCH (08:17)
[2018-08-12] MEDS: APIXABAN 5 MG TAB PO SCH (08:17)
[2018-08-12] MEDS: PANTOPRAZOLE 40 MG TABLET PO SCH (08:17)
[2018-08-12] MEDS: INSULIN ASPART (NovoLOG) 100 UNIT/ML VIAL SQ SCH ×2 (08:17→12:43)
[2018-08-12] MEDS: METOPROLOL TARTRATE 25 MG TAB PO SCH (08:17)
[2018-08-12] MEDS: AMIODARONE 200 MG TAB PO SCH (08:17)
[2018-08-12] MEDS: SODIUM CHLORIDE 0.9% 1,000 ML IV SCH (08:22)
[2018-08-12] MEDS: BUDESONIDE 0.5 MG/2 ML NEBU INHALATION SCH (08:32)
[2018-08-12] MEDS: IPRATROPIUM-ALBUTEROL 3 ML NEB INHALATION SCH ×2 (08:33→11:44)
--- NOTE | 2018-08-12 10:16 | P.PN ---
Subjective Progress Note Date: 08/12/18 This is a 78-year-old female patient of Dr. Kirby. Patient claimed residing at [facility] presented to the ER with complaints of right upper and right lower quadrant pain [address] completed showing high-grade small bowel traction proximal third to half level, transition point in the mid lower abdomen. Small bowel loops are dilated up to 4.2 cm and edematous with reactive mesenteric edema and mild ascites fluids. Prominent fecal distention of the rectum up to 6.7 cm. Moderate sized fat and ascites containing umbilical hernia measuring 3.7 cm wide. Patient was admitted to Dr. Lara. Patient was recently admitted to the prolonged hospital stay for acute hypoxic Estrace failure requiring intubation with severe sepsis with UTI and pneumonia and cellulitis. Patient also in A. fib and was started on anticoagulation during previous admission. Patient's additional medical history includes asthma, COPD, hyperlipidemia, essential hypertension, sleep apnea and depression. Patient does have NG tube in place which has provided some relief with abdominal discomfort. Patient's eliquis currently on hold due to possibility of surgery. Lovenox DVT prophylaxis has been added. Patient currently on Zosyn. At this time will consult cardiology services for preop clearance due to patient's extensive history including A. fib history. At this time patient is still c omplaining of some abdominal discomfort. Patient denies nausea vomiting. Patient denies diarrhea. Patient denies any urinary burning or frequency. Patient denies chest pain or shortness breath. On 08/05/2018 patient is alert and oriented 3 resting comfortably in bed. Discussed case with surgical services. Patient will likely have expiratory lap today with Dr. Lara. He was evaluated by cardiology services. Patient's home dose of eliquis currently on hold due to surgical intervention. Due to patient previously requiring mechanical ventilation within the past [address] Sloan for pulmonary care. Patient also having chronic lower extremity cellulitis. Patient was positive for MRSA during previous admission and treated with antibiotics. Will consult Dr. Kapadia at this time. At this time patient is still having some abdominal discomfort. NG remains in p lace. Patient denies chest pain or shortness of breath. Patient denies any nausea vomiting or diarrhea. On 08/06/2018 patient is alert and oriented resting comfortably in bed. Status post exploratory lap, lysis of adhesions and repair of incarcerated ventral hernia and omentectoy. Patient is currently postop day 1. Patient states her abdominal pain has improved. Patient denies chest pain or shortness of breath. Patient denies nausea vomiting or diarrhea. Patient denies any urinary burning or frequency. NG tube is in place. She remains nothing by mouth at this time. Cardiology pulmonary and infectious disease is following. On 08/07/2018 patient is alert and oriented. Patient is status post explatory laparoscopic postop day 2. She remains nothing by mouth at this time possible advancing to clear liquid diet per surgical services. Eliquis be resumed discussed with surgical services. At this time patient denies chest pain or shortness breath. Patient denies nausea vomiting or diarrhea. Patient denies any urinary burning or frequency On 08/08/2018 patient is alert and oriented. Patient is currently postop day 3. Patient is passing gas at this time. Diet to be advanced per surgical services. Eliquis has been resumed. NG tube has been removed. Consent was from her encouraged. At this time patient denies chest pain or shortness breath. Patient denies nausea vomiting or diarrhea. Patient denies any urinary burning or frequency. On 08/09/2018 patient is alert and oriented 3 she is postoperative day #4 she is tolerating diet well and diet is being advanced she is passing gas she did not have any bowel movement yet is no fever or chills no headache or dizziness no chest pain no shortness of breath no cough no nausea or vomiting no abdominal pain no diarrhea and no urinary symptoms. On 08/10/2018 patient was seen and examined on the medical floor she is postoperative day #5 she is alert and oriented 3 in no apparent distress she is complaining of abdominal pain when she coughs or moves otherwise no pain she stated that she had 1 bowel movement she is still feeling weak and unsteady on her feet otherwise she denies any complaints there is no fever or chills no headache or dizziness no chest pain no shortness of breath no cough no nausea or vomiting no abdominal pain no diarrhea and no urinary symptoms On 08/11/2017 patient is currently postop day 6. Patient is alert and oriented patient is having bowel movements. Patient has been on advanced diet. At this time patient denies chest pain or shortness of breath. Patient denies nausea vomiting or diarrhea. Denies any urinary burning or frequency. Anticipate discharge per surgical services within the next 24-48 hours On 08/12/2018 patient is currently postop day 7. Patient is still having bowel movement. Patient has been tolerating diet. Vitals have remained stable. Disc ussed with surgical services. Planning to transfer patient to rehab today. His time patient denies chest pain or shortness breath. Patient denies nausea vomiting or diarrhea. Patient denies any urinary burning or frequency Objective - Vital Signs Vital signs: Vital Signs Temp 97.8 F 08/12/18 07:00 Pulse 64 08/12/18 08:51 Resp 14 08/12/18 08:00 BP 166/93 08/12/18 07:00 Pulse Ox 99 08/12/18 07:00 Intake & Output 08/11/18 08/12/18 08/12/18 18:59 06:59 18:59 Intake Total 800 600 Output Total 320 770 Balance 480 -170 Weight 114 kg 125.5 kg Intake: IV 800 Sodium Chloride 0.9% 1, 800 000 ml @ 100 mls/hr IV . Q10H [facility] Rx#:[id number] Intake, IV Titration 600 Amount Piperacillin-Tazobactam 3 100 .375 gm In Sodium Chloride 0.9% 100 ml @ 25 mls/hr IVPB Q8HR [facility] Rx# :[id number] Sodium Chloride 0.9% 1, 500 000 ml @ 50 mls/hr IV . Q20H [facility] Rx#:[id number] Output: Urine 320 770 Uretheral (Jaimes) 320 220 Other: Voiding Method Indwelling Catheter Indwelling Catheter Indwelling Catheter - Exam Head normocephalic Neck supple Lungs clear to auscultation bilaterally no wheezing or crackles Heart regular rate and rhythm S1-S2, no rub or gallop Abdomen is soft some tenderness to palpation. Some shadowing noted to dressing. Midline incision. Extremities bilateral lower extremity erythema Neuro alert and orientated to 3 - Labs CBC & Chem 7: 08/12/18 07:01 08/12/18 07:01 Labs: Abnormal Lab Results - Last 24 Hours (Table) 08/11/18 08/11/18 08/11/18 Range/Units 09:21 16:42 20:03 WBC (3.8-10.6) k/uL MCHC (31.0-37.0) g/dL Neutrophils # (1.3-7.7) k/uL Lymphocytes # (1.0-4.8) k/uL BUN 5 L (7-17) mg/dL Creatinine 0.46 L (0.52-1.04) mg/dL POC Glucose (mg/dL) 100 H 116 H (75-99) mg/dL Calcium 8.1 L (8.4-10.2) mg/dL Total Protein 4.5 L (6.3-8.2) g/dL Albumin 2.3 L (3.5-5.0) g/dL 08/12/18 08/12/18 Range/Units 07:01 07:01 WBC 10.8 H (3.8-10.6) k/uL MCHC 30.8 L (31.0-37.0) g/dL Neutrophils # 8.6 H (1.3-7.7) k/uL Lymphocytes # 0.9 L (1.0-4.8) k/uL BUN 4 L (7-17) mg/dL Creatinine 0.48 L (0.52-1.04) mg/dL POC Glucose (mg/dL) (75-99) mg/dL Calcium (8.4-10.2) mg/dL Total Protein 4.7 L (6.3-8.2) g/dL Albumin 2.4 L (3.5-5.0) g/dL Assessment and Plan Assessment: 1. High-grade small bowel obstruction. Repeat abdominal x-ray ordered per surgical services. Patient currently nothing by mouth NG tube in place. Repeat abdominal x-ray completed showing solitary dilated loop of small bowel remain centralized within the abdomen high-grade small bowel obstruction. Discussed case with surgical nurse practitioner. Status post Status post exploratory lap, lysis of adhesions and repair of incarcerated ventral hernia and omentectoy. Patient is currently postop day 3. Patient is nothing by mouth. Patient is having bowel movements. Diet has been advanced to low fiber diet 2. History of paroxysmal atrial flutter fibrillation. Patient is currently in normal sinus rhythm. Patient's eliquis currently on hold due to possible surgical intervention. she was evaluated by cardiology services. Per cardiology patient is high risk due to multiple comorbid conditions. 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 History of recent admission for sepsis requiring mechanical ventilation.Dr. Garrett has been consulted for pulmonary care due to recent intubation 4. History of COPD 6. History of diabetes mellitus type 2 patient maintained on sliding scale 7. History of arthritis 8. History of tricuspid regurg 9. History of essential hypertension 10. History of obstructive sleep apnea 11. Bilateral lower extremity cellulitis Previous history of cellulitis with MRSA. Will consult Dr. Kapadia at this time due to increase lower extremity redness. Patient currently on Zosyn. Per infectious disease cellulitis is improving, patient may be transitioned to oral antibiotic Augmentin per ID DVT prophylaxis eliquis has been resumed. GI prophylaxis Protonix Patient planning to return to [facility] upon discharge Possible discharge today per surgical services I performed an examination of the patient and discussed their management with the Nurse Practitioner. I have reviewed the Nurse Practitioner's notes and ag ree with the documented findings and plan of care
[2018-08-12 11:57] LABS: Glucose,Whole Blood 87 mg/dL (75-99)
[2018-08-12 12:30] VITALS: PULSE 60
--- NOTE | 2018-08-12 12:32 | P.DS ---
Providers Date of admission: 08/03/18 13:39 Expected date of discharge: 08/12/18 Attending physician: Jose Lara Consults: 08/03/18 21:26 Consult Physician Routine Consulting Provider: Judah Goldstein Consult Reason/Comments: SBO,vomiting,leukocytosis Do you want consulting provider notified?: Already Contacted 08/04/18 10:04 Consult Physician Routine Consulting Provider: Edu Angel Consult Reason/Comments: preop cardiac clearance, A. fib flutter Do you want consulting provider notified?: Yes 08/05/18 10:40 Consult Physician Routine Consulting Provider: Brianne Garrett Consult Reason/Comments: hypoxia Do you want consulting provider notified?: Yes 08/05/18 10:53 Consult Physician Routine Consulting Provider: Brianne Garrett Consult Reason/Comments: Previous intubation. Surgical intervention today Do you want consulting provider notified?: Yes 08/05/18 10:54 Consult Physician Routine Consulting Provider: Anjali Kapadia Consult Reason/Comments: Previous sepsis with MRSA infection bilateral cellulitis Do you want consulting provider notified?: Yes Primary care physician: Basil [facility] Course: 78-year-old who presented to the emergency room with chief complaint of abdominal pain, nausea, and vomiting. Patient was found to have a small bowel obstruction. Patient is status post exploratory laparotomy, lysis of adhesions, repair of incarcerated ventral hernia, and omentectomy. Patient is doing well postoperatively without any immediate complications. Patient is tolerating diet and having bowel movements. Pain is tolerable with oral medications. Her vital signs are stable. She is stable for discharge back to [facility]. Please see EMR for further hospital course details. Discharge diagnosis: 1. Abdominal pain 2. High grade small bowel obstruction 3. Status post exploratory laparotomy, lysis of adhesions, repair of incarcerated ventral hernia, and omentectomy Nurse practitioner note has been reviewed by physician. Signing provider agrees with the documented findings, assessment, and plan of care. Patient Condition at Discharge: Stable Plan - Discharge Summary Discharge Rx Participant: No New Discharge Prescriptions: No Action Acetaminophen Tab [Tylenol] 500 mg PO Q6HR PRN tab PRN Reason: Fever and/ or Mild Pain Amiodarone [Cordarone] 200 mg PO TID tab Apixaban [Eliquis] 5 mg PO BID tab guaiFENesin [Mucinex] 600 mg PO Q12HR tablet.er Metoprolol Tartrate [Lopressor] 25 mg PO BID tab Pantoprazole [Protonix] 40 mg PO DAILY tablet. Ipratropium-Albuterol Nebulize [Duoneb 0.5 mg-3 mg/3 ml Soln] 3 ml INHALATION RT-QID ampul.neb Ipratropium-Albuterol Nebulize [Duoneb 0.5 mg-3 mg/3 ml Soln] 3 ml INHALATION RT-Q2H PRN ampul.neb PRN Reason: Shortness Of Breath Or Wheezing Ondansetron [Zofran] 4 mg PO Q6H PRN PRN Reason: Nausea INSULIN ASPART (NovoLOG) [NovoLOG (formulary)] See Protocol SQ ACHS Ammonium Lactate Lotion [Lac-Hydrin 12% Lotion] 1 applic TOPICAL BID Pro Stat 30ml 30 ml PO DAILY Pravastatin Sodium [Pravachol] 20 mg PO DAILY Discharge Medication List Acetaminophen Tab [Tylenol] 500 mg PO Q6HR PRN tab 07/07/18 [Rx] Amiodarone [Cordarone] 200 mg PO TID tab 07/07/18 [Rx] Apixaban [Eliquis] 5 mg PO BID tab 07/07/18 [Rx] Ipratropium-Albuterol Nebulize [Duoneb 0.5 mg-3 mg/3 ml Soln] 3 ml INHALATION RT-Q2H PRN ampul.neb 07/07/18 [Rx] Ipratropium-Albuterol Nebulize [Duoneb 0.5 mg-3 mg/3 ml Soln] 3 ml INHALATION RT-QID ampul.neb 07/07/18 [Rx] Metoprolol Tartrate [Lopressor] 25 mg PO BID tab 07/07/18 [Rx] Pantoprazole [Protonix] 40 mg PO DAILY tablet. 07/07/18 [Rx] guaiFENesin [Mucinex] 600 mg PO Q12HR tablet.er 07/07/18 [Rx] Ammonium Lactate Lotion [Lac-Hydrin 12% Lotion] 1 applic TOPICAL BID 08/03/18 [ History] INSULIN ASPART (NovoLOG) [NovoLOG (formulary)] See Protocol SQ ACHS 08/03/18 [History] Ondansetron [Zofran] 4 mg PO Q6H PRN 08/03/18 [History] Pravastatin Sodium [Pravachol] 20 mg PO DAILY 08/03/18 [History] Pro Stat 30ml 30 ml PO DAILY 08/03/18 [History] Follow up Appointment(s)/Referral(s): Basil Kirby MD [Primary Care Provider] - 1-2 days Jose Lara MD [STAFF PHYSICIAN] - 1 Week Activity/Diet/Wound Care/Special Instructions: Tylenol PRN for pain No lifting over 10 pounds You may shower. No soaking or tub baths Activity as tolerated Every other staple removed today August 12. Remove remaining kaleigh in 1 week.
--- NOTE | 2018-08-12 16:40 | PN ---
PROGRESS NOTE DATE OF SERVICE: 08/12/2018 This patient has been hemodynamically stable and is not short of breath. [facility]. On physical examination, her respiratory rate is 14, pulse rate of 68, temperature 97.8, blood pressure 166/93. Oxygen saturation on 2 L by nasal cannula is 99%. HEENT is unremarkable. Chest reveals decreased breath sounds on the base. Cardiovascular system is in S1, S2. Abdomen is soft with surgical dressing in place. There is no edema. IMPRESSION AT THIS TIME: 1. Acute hypoxic respiratory failure. 2. High-grade small-bowel obstruction. 3. Asthma. 4. Pulmonary hypertension and valvular heart disease. Continue Eliquis, incentive spirometry, increase her activity level. Medications were reviewed. I agree with discharge planning. MMNOHEMIL / IJN: [id number] /
--- NOTE | 2018-08-12 17:13 | PN ---
PROGRESS NOTE DATE OF SERVICE: 08/12/2018. REASON FOR FOLLOW UP: 1. Abdominal internal hernia. 2. Lower extremity cellulitis. INTERVAL HISTORY: The patient is seen on rounds this morning. The patient has been afebrile. The patient is breathing comfortably. Denies having any chest pain. Occasional cough. No abdominal pain. Overall pain, swelling and redness of leg has improved. PHYSICAL EXAMINATION: Blood pressure 136/93 with a pulse of 68, temperature 97.8. She is 99% on 2 L nasal cannula. General description is an elderly female up in the bed in no distress. Respiratory system: Unlabored breathing. Clear to auscultation anteriorly. Heart S1, S2. Regular rate and rhythm. ABDOMEN: Soft. No tenderness. Legs with some swelling and minimal redness. LABS: Hemoglobin 12.7, white count of 10.8. BUN of 4, creatinine 0.48. DIAGNOSTIC IMPRESSION AND PLAN: Patient admitted to the hospital. He did have leukocytosis likely secondary to incarcerated internal hernia with omentum containing. No evidence of any bowel perforation or lower extremity cellulitis. The patient underlying infection adequately treated. She will transition to oral Augmentin 875 b.i.d. for about a week to finish a course of therapy. Continue supportive care. MMODL / IJN: [id number] /
== END 2018-08-12 15:00 | DRG 335 ==
LOC: EC 09:30 → 4MS4W 13:39 → 3SCARD 08-04 14:04 → 4SSUR 08-06 10:24
PROVIDERS: ADMIT Surgery; ATTEND Surgery
PROC: 0D9670Z Drainage of Stomach with Drainage Device, Via Natural or Artificial Opening (ICD-10-PCS; 2018-08-03)
PROC: 0DBU0ZZ Excision of Omentum, Open Approach (ICD-10-PCS; 2018-08-05)
PROC: 0WQF0ZZ Repair Abdominal Wall, Open Approach (ICD-10-PCS; 2018-08-05)
PROC: 0DNA0ZZ Release Jejunum, Open Approach (ICD-10-PCS; principal; 2018-08-05 14:15)
DX: K56.50 Intestinal adhesions [bands], unspecified as to partial versus complete obstruction (principal); J96.01 Acute respiratory failure with hypoxia; K43.6 Other and unspecified ventral hernia with obstruction, without gangrene; Z68.41 Body mass index [BMI] 40.0-44.9, adult; E87.2 Acidosis; I50.32 Chronic diastolic (congestive) heart failure; R18.8 Other ascites; E44.0 Moderate protein-calorie malnutrition; L03.115 Cellulitis of right lower limb; L03.116 Cellulitis of left lower limb; J98.11 Atelectasis; E66.01 Morbid (severe) obesity due to excess calories; I27.29 Other secondary pulmonary hypertension; I48.0 Paroxysmal atrial fibrillation; I11.0 Hypertensive heart disease with heart failure; I08.3 Combined rheumatic disorders of mitral, aortic and tricuspid valves; J44.9 Chronic obstructive pulmonary disease, unspecified; E11.9 Type 2 diabetes mellitus without complications; J45.50 Severe persistent asthma, uncomplicated; G47.33 Obstructive sleep apnea (adult) (pediatric); E78.5 Hyperlipidemia, unspecified; I87.8 Other specified disorders of veins; I87.2 Venous insufficiency (chronic) (peripheral); M19.91 Primary osteoarthritis, unspecified site; L98.9 Disorder of the skin and subcutaneous tissue, unspecified; Z79.01 Long term (current) use of anticoagulants; Z79.4 Long term (current) use of insulin; Z79.899 Other long term (current) drug therapy; Z71.3 Dietary counseling and surveillance; Z91.19 Patient's noncompliance with other medical treatment and regimen; Z87.01 Personal history of pneumonia (recurrent); Z86.14 Personal history of Methicillin resistant Staphylococcus aureus infection; Z98.84 Bariatric surgery status; Z96.653 Presence of artificial knee joint, bilateral; Z87.81 Personal history of (healed) traumatic fracture; Z86.59 Personal history of other mental and behavioral disorders; Z90.710 Acquired absence of both cervix and uterus; Z86.79 Personal history of other diseases of the circulatory system; Z87.891 Personal history of nicotine dependence; Z87.440 Personal history of urinary (tract) infections; Z98.42 Cataract extraction status, left eye; Z98.41 Cataract extraction status, right eye; Z88.1 Allergy status to other antibiotic agents; Z88.2 Allergy status to sulfonamides; Z88.8 Allergy status to other drugs, medicaments and biological substances; Z91.048 Other nonmedicinal substance allergy status; Z83.2 Family history of diseases of the blood and blood-forming organs and certain disorders involving the immune mechanism; Z80.9 Family history of malignant neoplasm, unspecified; Z82.49 Family history of ischemic heart disease and other diseases of the circulatory system
CPT/HCPCS: 36415; 51702; 71045; 74018; 74177; 80053; 81001; 82150; 83605; 83690; 83735; 84484; 85025; 86850; 86900; 86901; 87040; 88302; 93005; 94640; 94760; 96361; 96365; 96375; 96376; 99285

== ENCOUNTER 2018-09-06 13:39 | Emergency (ER) | payer MEDICARE ==
[2018-09-06 13:53] VITALS: RESP 18; TEMP 97
--- NOTE | 2018-09-06 15:31 | ED ---
Recheck HPI - General Chief Complaint: Recheck/Abnormal Lab/Rx Stated Complaint: Allergic Reaction Time Seen by Provider: 09/06/18 13:47 Source: EMS, RN notes reviewed, old records reviewed Mode of arrival: EMS Limitations: no limitations - History of Present Illness Initial Comments: Patient is a 78-year-old female presents emergency department today for metal edge of the elbow with complaints of a rash over her trunk and back. Symptoms started after starting ciprofloxacin for UTI. She is not on the antibiotic for 3 days. Patient ports that the rash is nonpruritic and nonpainful. She denies any other areas of rash. Denies any sores within her mouth or mucosal surfaces. Patient states that she has no complaints at this time and otherwise feels well. Patient is currently being treated for lower extremity edema and cellulitis as well. - Related Data Home Medications Medication Instructions Recorded Confirmed Ammonium Lactate Lotion 1 applic TOPICAL BID 08/03/18 08/03/18 [Lac-Hydrin 12% Lotion] INSULIN ASPART (NovoLOG) [NovoLOG See Protocol SQ ACHS 08/03/18 08/03/18 (formulary)] Ondansetron [Zofran] 4 mg PO Q6H PRN 08/03/18 08/03/18 Pro Stat 30ml 30 ml PO DAILY 08/03/18 08/03/18 Previous Rx's Medication Instructions Recorded Acetaminophen Tab [Tylenol] 500 mg PO Q6HR PRN tab 07/07/18 Amiodarone [Cordarone] 200 mg PO TID tab 07/07/18 Apixaban [Eliquis] 5 mg PO BID tab 07/07/18 Ipratropium-Albuterol Nebulize 3 ml INHALATION RT-Q2H PRN 07/07/18 [Duoneb 0.5 mg-3 mg/3 ml Soln] ampul.neb Ipratropium-Albuterol Nebulize 3 ml INHALATION RT-QID ampul.neb 07/07/18 [Duoneb 0.5 mg-3 mg/3 ml Soln] Metoprolol Tartrate [Lopressor] 25 mg PO BID tab 07/07/18 Pantoprazole [Protonix] 40 mg PO DAILY tablet. 07/07/18 Amoxic-Pot Clav 875-125Mg 1 tab PO Q12HR 7 Days #14 tablet 08/12/18 [Augmentin 875-125] Montelukast [Singulair] 10 mg PO HS tab 08/12/18 Cephalexin [Keflex] 500 mg PO Q8HR #21 cap 09/06/18 Allergies Allergy/AdvReac Type Severity Reaction Status Date / Time thallium-201 Allergy Intermediate Rash/Hives Verified 08/03/18 10:05 Sulfa (Sulfonamide AdvReac Severe low Verified 08/03/18 10:05 Antibiotics) hemoglobin aspirin AdvReac Mild blood in Verified 08/03/18 10:05 stool vancomycin AdvReac Rash/Hives Verified 08/03/18 10:05 steri strips AdvReac Mild blisters Uncoded 06/26/18 12:43 skin Review of Systems ROS Statement: Those systems with pertinent positive or pertinent negative responses have been documented in the HPI. ROS Other: All systems not noted in ROS Statement are negative. Past Medical History Past Medical History: Atrial Fibrillation, Atrial Flutter, Asthma, Heart Failure, COPD, Diabetes Mellitus, Hyperlipidemia, Hypertension, Osteoarthritis (OA), Pneumonia, Skin Disorder, Sleep Apnea/CPAP/BIPAP Additional Past Medical History / Comment(s): heart valve problem 1 year ago-not sure of name, no cpap used, anemia, "chocolate" color stool, degenerative arthritis, "Bite" swenson on arms-cause unknown, no current rx for diabetes-diet control, leakage of urine, uses walker History of Any Multi-Drug Resistant Organisms: MRSA Date of last positivie culture/infection: 06/27/18 MDRO Source:: Right Leg Past Surgical History: Appendectomy, Bariatric Surgery, Hysterectomy, Joint Replacement, Orthopedic Surgery, Tonsillectomy Additional Past Surgical History / Comment(s): Picc line insertion/later removed, lap band, right knee replacement x 2 & left knee replaced with revision, L ganglion wirst surg., left ankle ORIF, right trigger thumb surg. juan cataracts Past Anesthesia/Blood Transfusion Reactions: Previous Problems w/ Anesthesia Additional Past Anesthesia/Blood Transfusion Reaction / Comment(s): difficulty waking up @times Past Psychological History: Depression Smoking Status: Never smoker Past Alcohol Use History: Rare Past Drug Use History: None Reported - Past Family History Daughter(s) Family Medical History: Deep Vein Thrombosis (DVT), Pulmonary Embolus Father Family Medical History: Cancer Mother Additional Family Medical History / Comment(s): Mother had hypotension. General Exam - General Exam Comments Initial Comments: This is a 78-year-old female. Alert and oriented.He distress. Limitations: no limitations General appearance: alert, in no apparent distress Head exam: Present: atraumatic Eye exam: Present: normal appearance, PERRL, EOMI. Absent: scleral icterus, conjunctival injection, periorbital swelling ENT exam: Present: normal exam, mucous membranes moist Neck exam: Present: normal inspection. Absent: tenderness, meningismus, lymphadenopathy Respiratory exam: Present: normal lung sounds bilaterally. Absent: respiratory distress, wheezes, rales, rhonchi, stridor Cardiovascular Exam: Present: regular rate, normal rhythm, normal heart sounds. Absent: systolic murmur, diastolic murmur, rubs, gallop, clicks GI/Abdominal exam: Present: soft, normal bowel sounds. Absent: distended, tenderness, guarding, rebound, rigid Extremities exam: Present: normal inspection, full ROM, normal capillary refill. Absent: tenderness, pedal edema, joint swelling, calf tenderness Back exam: Present: normal inspection Neurological exam: Present: alert, oriented X3, CN II-XII intact Psychiatric exam: Present: normal affect, normal mood Skin exam: Present: warm, dry, intact, normal color, rash (Morbilliform rash over the trunk and back. No pruritus.) Course Vital Signs 09/06/18 09/06/18 09/06/18 13:43 14:36 17:03 Temperature 97.0 F L Pulse Rate 50 L 63 50 L Respiratory 18 18 18 Rate Blood Pressure 122/53 115/80 144/58 O2 Sat by Pulse 100 99 98 Oximetry Medical Decision Making - Medical Decision Making 78-year-old female present to return today for morbilliform rash over trunk and back since a new antibiotic Cipro. Her chart is reviewed and the Patient has this for urinary tract infection. She states that she was placed on for lower sternal ED. Patient states that she has no urinary tract symptoms at this time. Patient had urinary straight cath. There is tender PVCs but no bacteria. Urine culture will be completed. Patient does have lower external cellulitis of this is been chronic. She's been in and out of hospital and on antibiotics. She has been on Keflex. Discussed he can discontinue Cipro and put the Patient on Keflex. She otherwise appears well vital signs are stable. No other complaints. Patient will be discharged at this time with the diagnosis of drug eruption and will switch her to Keflex. Returning to [facility]. - Lab Data Lab Results 09/06/18 Range/Units 16:32 Urine Color Light Yellow Urine Appearance Clear (Clear) Urine pH 6.0 (5.0-8.0) Ur Specific [place] 1.004 (1.001-1.035) Urine Protein Negative (Negative) Urine Glucose (UA) Negative (Negative) Urine Ketones Negative (Negative) Urine Blood Negative (Negative) Urine Nitrite Negative (Negative) Urine Bilirubin Negative (Negative) Urine Urobilinogen <2.0 (<2.0) mg/dL Ur Leukocyte Esterase Trace H (Negative) Urine RBC <1 (0-5) /hpf Urine WBC 10 H (0-5) /hpf Ur Squamous Epith Cells 2 (0-4) /hpf Disposition Clinical Impression: Bilateral lower leg cellulitis, Drug eruption Disposition: HOME SELF-CARE Condition: Good Instructions (If sedation given, give patient instructions): Acute Rash (ED) Additional Instructions: Patient advised to take the medication as prescribed. Follow-up with your doctor the rash should disappear within the next week. Patient should have Cipro added to ALLERGY list. Prescriptions: Cephalexin [Keflex] 500 mg PO Q8HR #21 cap Is patient prescribed a controlled substance at d/c from ED?: No Referrals: Jannette Palm DO [Primary Care Provider] - 1-2 days Time of Disposition: 17:18
[2018-09-06 16:50] LABS: Appearance,Urine Clear (Clear); Bilirubin,Urine Negative (Negative); Blood,Urine Negative (Negative); Color,Urine Light Yellow; Glucose,Urine (UA) Negative (Negative); Ketones,Urine Negative (Negative); Leukocyte Esterase,Urine Trace (Negative); Nitrite,Urine Negative (Negative); Protein,Urine Negative (Negative); RBC,Urine <1 /hpf (0-5); Specific Gravity,Urine 1.004 (1.001-1.035); Squamous Epithelial Cell,Urine 2 /hpf (0-4); Urobilinogen,Urine <2.0 mg/dL (<2.0)
[2018-09-06 17:05] VITALS: BP 144/58; PULSE 50
== END 2018-09-06 17:56 | disposition home or self-care (01) ==
LOC: EC 13:39
DX: L03.115 Cellulitis of right lower limb (principal); L03.116 Cellulitis of left lower limb; L27.0 Generalized skin eruption due to drugs and medicaments taken internally; T36.8X5A Adverse effect of other systemic antibiotics, initial encounter; E11.9 Type 2 diabetes mellitus without complications; M19.90 Unspecified osteoarthritis, unspecified site; G47.30 Sleep apnea, unspecified; Z79.4 Long term (current) use of insulin; Z88.2 Allergy status to sulfonamides; Z88.1 Allergy status to other antibiotic agents; Z88.6 Allergy status to analgesic agent; Z88.8 Allergy status to other drugs, medicaments and biological substances; Z91.048 Other nonmedicinal substance allergy status; Z98.84 Bariatric surgery status; Z96.653 Presence of artificial knee joint, bilateral
CPT/HCPCS: 81001; 99284

== ENCOUNTER → 2019-07-03 | Outpatient (CLI) | payer MEDICARE ==
[2019-07-03 15:10] LABS: HCT 41.2 % (34.0-46.0); HGB 12.8 gm/dL (11.4-16.0); Hypochromasia Slight; MCH 28.7 pg (25.0-35.0); MCHC 31.1 g/dL (31.0-37.0); MCV 92.3 fL (80.0-100.0); Mean Platelet Volume 7.2; Platelet Count 275 k/uL (150-450); RBC 4.46 m/uL (3.80-5.40); RDW 13.7 % (11.5-15.5); WBC 7.7 k/uL (3.8-10.6)
[2019-07-04 03:19] LABS: African American GFR (CKD) 81.3 (60.0-200.0); Albumin 4.1 g/dL (3.80-4.90); Albumin/Globulin Ratio 2.41 (1.60-3.17); Anion Gap 10.9 mmol/L (4.00-12.00); BUN/Creat Ratio 12.5 Ratio (12.00-20.00); Calcium 8.8 mg/dL (8.7-10.3); Carbon Dioxide 31.1 mmol/L (21.6-31.8); Globulin 1.7 g/dL (1.6-3.3); Non-African American GFR(CKD) 70.1 (60.0-200.0); Potassium 4.6 mmol/L (3.5-5.5); Total Bilirubin 0.8 mg/dL (0.3-1.2); Total Protein 5.8 g/dL (6.2-8.2)
[2019-07-04 03:27] LABS: T4, Free (Free Thyroxine) 1.3 ng/dL (0.80-1.80)
[2019-07-04 04:18] LABS: Hemoglobin A1C 5.7 % (4.0-6.0)
== END | disposition home or self-care (01) ==
LOC: LABWHC1 13:31
PROVIDERS: ATTEND Physician Assistant Medical
DX: E03.9 Hypothyroidism, unspecified (principal); I50.9 Heart failure, unspecified; R73.01 Impaired fasting glucose
CPT/HCPCS: 36415; 80053; 83036; 84439; 84443; 84481; 85027

== ENCOUNTER 2019-10-05 16:19 | Inpatient (IN) | payer MEDICARE ==
--- NOTE | 2019-10-05 17:01 | ED ---
General Adult HPI - General Source: RN notes reviewed <Chan Zurita - Last Filed: 10/05/19 23:02> <Andres Dimas - Last Filed: 10/05/19 23:39> - General Stated complaint: Weakness Time Seen by Provider: 10/05/19 16:41 - History of Present Illness Initial comments: 79-year-old female that about medical history of atrial fibrillation, asthma, heart failure, COPD, diabetes mellitus, hyperlipidemia, hypertension presents to the emergency department for a chief complaint of weakness. According to patient she has been weak for about 1 day. States that she started coughing and not feeling well today. She has not had fevers. Patient states she is a little bit short of breath. Denies chest pain. Denies dysuria. Patient does have history of hypothyroidism. I did attempt to call patient's daughter for more information as she does live with her but have not yet heard back.Patient has no other complaints at this time including shortness of breath, chest pain, abdominal pain, nausea or vomiting, headache, or visual changes. (Chan Zurita) - Related Data Home Medications Medication Instructions Recorded Confirmed Furosemide [Lasix] 40 mg PO BID 10/05/19 10/05/19 Levothyroxine Sodium [Synthroid] 100 mcg PO DAILY 10/05/19 10/05/19 Montelukast [Singulair] 10 mg PO DAILY 10/05/19 10/05/19 Potassium Chloride [Klor-Con 8] 8 meq PO DAILY 10/05/19 10/05/19 Pravastatin Sodium [Pravachol] 20 mg PO DAILY 10/05/19 10/05/19 Previous Rx's Medication Instructions Recorded Amiodarone [Cordarone] 200 mg PO TID tab 07/07/18 Apixaban [Eliquis] 5 mg PO BID tab 07/07/18 Metoprolol Tartrate [Lopressor] 25 mg PO BID tab 07/07/18 Allergies Allergy/AdvReac Type Severity Reaction Status Date / Time thallium-201 Allergy Intermediate Rash/Hives Verified 10/05/19 22:11 Sulfa (Sulfonamide AdvReac Severe low Verified 10/05/19 22:11 Antibiotics) hemoglobin aspirin AdvReac Mild blood in Verified 10/05/19 22:11 stool vancomycin AdvReac Rash/Hives Verified 10/05/19 22:11 steri strips AdvReac Mild blisters Uncoded 06/26/18 12:43 skin Review of Systems ROS Other: All systems not noted in ROS Statement are negative. <Chan Zurita - Last Filed: 10/05/19 23:02> ROS Other: All systems not noted in ROS Statement are negative. <Andres Dimas - Last Filed: 10/05/19 23:39> ROS Statement: Those systems with pertinent positive or pertinent negative responses have been documented in the HPI. Past Medical History Past Medical History: Atrial Fibrillation, Atrial Flutter, Asthma, Heart Failure, COPD, Diabetes Mellitus, Hyperlipidemia, Hypertension, Osteoarthritis (OA), Pneumonia, Skin Disorder, Sleep Apnea/CPAP/BIPAP Additional Past Medical History / Comment(s): heart valve problem 1 year ago-not sure of name, no cpap used, anemia, "chocolate" color stool, degenerative arthritis, "Bite" swenson on arms-cause unknown, no current rx for diabetes-diet control, leakage of urine, uses walker History of Any Multi-Drug Resistant Organisms: MRSA Date of last positivie culture/infection: 06/27/18 MDRO Source:: Right Leg Past Surgical History: Appendectomy, Bariatric Surgery, Hysterectomy, Joint Replacement, Orthopedic Surgery, Tonsillectomy Additional Past Surgical History / Comment(s): Picc line insertion/later removed, lap band, right knee replacement x 2 & left knee replaced with revision, L ganglion wirst surg., left ankle ORIF, right trigger thumb surg. juan cataracts Past Anesthesia/Blood Transfusion Reactions: Previous Problems w/ Anesthesia Additional Past Anesthesia/Blood Transfusion Reaction / Comment(s): difficulty waking up @times Past Psychological History: Depression Smoking Status: Never smoker Past Alcohol Use History: Rare Past Drug Use History: None Reported - Past Family History Daughter(s) Family Medical History: Deep Vein Thrombosis (DVT), Pulmonary Embolus Father Family Medical History: Cancer Mother Additional Family Medical History / Comment(s): Mother had hypotension. <Chan Zurita P - Last Filed: 10/05/19 23:02> General Exam General appearance: alert, in no apparent distress Head exam: Present: atraumatic, normocephalic, normal inspection Eye exam: Present: normal appearance, PERRL, EOMI. Absent: scleral icterus, conjunctival injection, periorbital swelling ENT exam: Present: normal exam, mucous membranes moist Neck exam: Present: normal inspection, full ROM. Absent: tenderness, meningismus, lymphadenopathy Respiratory exam: Present: decreased breath sounds. Absent: respiratory distress, wheezes, rales, rhonchi, stridor Cardiovascular Exam: Present: regular rate, normal rhythm, normal heart sounds. Absent: systolic murmur, diastolic murmur, rubs, gallop, clicks GI/Abdominal exam: Present: soft, normal bowel sounds. Absent: distended, tenderness, guarding, rebound, rigid Neurological exam: Present: alert <Chan Zurita - Last Filed: 10/05/19 23:02> Course <Andres Dimas - Last Filed: 10/05/19 23:39> Vital Signs 10/05/19 10/05/19 10/05/19 19:24 20:51 23:26 Temperature 98.1 F Pulse Rate 98 86 92 Respiratory 18 14 18 Rate Blood Pressure 157/69 140/81 146/68 O2 Sat by Pulse 97 93 L 98 Oximetry - Reevaluation(s) Reevaluation #1: 10/05/19 22:43 Patient was reevaluated by myself. Patient is drowsy and difficult to arouse despite BiPAP. Family updated. Patient was transferred to trauma 2 and intubated. Case was discussed in detail with Dr. Sena who will consult. Chest x-ray shows tube going to right mainstem. ET tube was withdrawn and repeat chest x-ray ordered. ABG shows respiratory acidosis with hypercapnia. PH 7.22. CO2 83. O2 190. Bicarb 34. Patient was reexamined and reevaluated by myself. I agree with PA findings. This includes diagnostic interpretation and treatment plan. 10/05/19 23:38 Repeat ABG shows pH 7.27. CO2 74. O2 140. Bicarb 34. Respiratory rate will be increased. (Andres Dimas) EKG Findings - EKG Comments: EKG Findings:: Sinus tachycardia, ventricular rate 108, pr 164, QTC 452 <Chan Zurita - Last Filed: 10/05/19 23:02> Procedures - Intubation Sedative: Versed Paralytic: Succinylcholine Laryngoscope: Yoon Size: 3 ET Tube Size: 8 Tube Secured Depth (cm): 24 Tube Placement Confirmation: visualized tube passing through cords, equal breath sounds bilaterally, no breath sounds over epigastrium Patient Tolerated Procedure: well, no complications Intubation Complications: none <Andres Dimas - Last Filed: 10/05/19 23:39> Medical Decision Making - Lab Data Result diagrams: 10/05/19 16:14 10/05/19 16:14 <Chan Zurita - Last Filed: 10/05/19 23:02> - Lab Data Result diagrams: 10/05/19 16:14 10/05/19 16:14 <Andres Dimas - Last Filed: 10/05/19 23:39> - Medical Decision Making Patient presents with stable vitals on 2 L nasal cannula she was satting at 97%. She is awake and alert. States she is weak. She is a poor historian and I did attempt to call daughter but she did not answer. CBC shows mild leukocytos is. CMP does reveal elevated CO2 at 35. Troponin 0.076. EKG is unremarkable. She is not demonstrating ACS symptoms. She is not having chest pain. Urinalysis unremarkable. Chest x-ray does show cardiomegaly and probable heart failure increased compared to old exam. Troponin may be troponin leak from CHF. CTA was obtained which showed no evidence of pulmonary embolism there is cardiomegaly and mild aneurysm of the ascending aorta unchanged. There are some infiltrates and atelectasis at the lung bases and a small right pleural effusion. ABG shows pCO2 of 83. This could be related to COPD exacerbation as well given his history. Patient was put on BiPAP because she started to get drowsy however this did not help with her drowsiness. She was then intubated. (Chan Zurita) - Lab Data Lab Results 10/05/19 10/05/19 10/05/19 Range/Units 16:14 16:14 16:14 WBC 11.3 H (3.8-10.6) k/uL RBC 4.14 (3.80-5.40) m/uL Hgb 11.7 (11.4-16.0) gm/dL Hct 39.0 (34.0-46.0) % MCV 94.1 (80.0-100.0) fL MCH 28.2 (25.0-35.0) pg MCHC 30.0 L (31.0-37.0) g/dL RDW 14.9 (11.5-15.5) % Plt Count 261 (150-450) k/uL Neutrophils % 80 % Lymphocytes % 7 % Monocytes % 9 % Eosinophils % 2 % Basophils % 1 % Neutrophils # 9.0 H (1.3-7.7) k/uL Lymphocytes # 0.8 L (1.0-4.8) k/uL Monocytes # 1.0 (0-1.0) k/uL Eosinophils # 0.2 (0-0.7) k/uL Basophils # 0.1 (0-0.2) k/uL Hypochromasia Marked PT 10.8 (9.0-12.0) sec INR 1.0 (<1.2) APTT 21.3 L (22.0-30.0) sec D-Dimer (<0.60) mg/L FEU Sample Site ABG pH (7.35-7.45) ABG pCO2 (35-45) mmHg ABG pO2 (83-108) mmHg ABG HCO3 (21-25) mmol/L ABG Total CO2 (19-24) mmol/L ABG O2 Saturation (94-97) % ABG Base Excess mmol/L Gregor Test FiO2 % Sodium 140 (137-145) mmol/L Potassium 3.9 (3.5-5.1) mmol/L Chloride 102 (98-107) mmol/L Carbon Dioxide 35 H (22-30) mmol/L Anion Gap 3 mmol/L BUN 18 H (7-17) mg/dL Creatinine 0.71 (0.52-1.04) mg/dL Est GFR (CKD-EPI)AfAm >90 (>60 ml/min/1.73 sqM) Est GFR (CKD-EPI)NonAf 81 (>60 ml/min/1.73 sqM) Glucose 83 (74-99) mg/dL Plasma Lactic Acid Maulik (0.7-2.0) mmol/L Calcium 8.6 (8.4-10.2) mg/dL Magnesium 1.9 (1.6-2.3) mg/dL Total Bilirubin 1.0 (0.2-1.3) mg/dL AST 42 H (14-36) U/L ALT 15 (4-34) U/L Alkaline Phosphatase 91 (38-126) U/L Troponin I (0.000-0.034) ng/mL NT-Pro-B Natriuret Pep pg/mL Total Protein 5.7 L (6.3-8.2) g/dL Albumin 3.1 L (3.5-5.0) g/dL TSH 9.060 H (0.465-4.680) mIU/L Urine Color Urine Appearance (Clear) Urine pH (5.0-8.0) Ur Specific [place] (1.001-1.035) Urine Protein (Negative) Urine Glucose (UA) (Negative) Urine Ketones (Negative) Urine Blood (Negative) Urine Nitrite (Negative) Urine Bilirubin (Negative) Urine Urobilinogen (<2.0) mg/dL Ur Leukocyte Esterase (Negative) Urine RBC (0-5) /hpf Urine WBC (0-5) /hpf Amorphous Sediment (None) /hpf Urine Bacteria (None) /hpf Hyaline Casts (0-2) /lpf Urine Mucus (None) /hpf 10/05/19 10/05/19 10/05/19 Range/Units 16:14 16:14 16:14 WBC (3.8-10.6) k/uL RBC (3.80-5.40) m/uL Hgb (11.4-16.0) gm/dL Hct (34.0-46.0) % MCV (80.0-100.0) fL MCH (25.0-35.0) pg MCHC (31.0-37.0) g/dL RDW (11.5-15.5) % Plt Count (150-450) k/uL Neutrophils % % Lymphocytes % % Monocytes % % Eosinophils % % Basophils % % Neutrophils # (1.3-7.7) k/uL Lymphocytes # (1.0-4.8) k/uL Monocytes # (0-1.0) k/uL Eosinophils # (0-0.7) k/uL Basophils # (0-0.2) k/uL Hypochromasia PT (9.0-12.0) sec INR (<1.2) APTT (22.0-30.0) sec D-Dimer (<0.60) mg/L FEU Sample Site ABG pH (7.35-7.45) ABG pCO2 (35-45) mmHg ABG pO2 (83-108) mmHg ABG HCO3 (21-25) mmol/L ABG Total CO2 (19-24) mmol/L ABG O2 Saturation (94-97) % ABG Base Excess mmol/L Gregor Test FiO2 % Sodium (137-145) mmol/L Potassium (3.5-5.1) mmol/L Chloride (98-107) mmol/L Carbon Dioxide (22-30) mmol/L Anion Gap mmol/L BUN (7-17) mg/dL Creatinine (0.52-1.04) mg/dL Est GFR (CKD-EPI)AfAm (>60 ml/min/1.73 sqM) Est GFR (CKD-EPI)NonAf (>60 ml/min/1.73 sqM) Glucose (74-99) mg/dL Plasma Lactic Acid Maulik 1.4 (0.7-2.0) mmol/L Calcium (8.4-10.2) mg/dL Magnesium (1.6-2.3) mg/dL Total Bilirubin (0.2-1.3) mg/dL AST (14-36) U/L ALT (4-34) U/L Alkaline Phosphatase (38-126) U/L Troponin I 0.076 H* (0.000-0.034) ng/mL NT-Pro-B Natriuret Pep 1630 pg/mL Total Protein (6.3-8.2) g/dL Albumin (3.5-5.0) g/dL TSH (0.465-4.680) mIU/L Urine Color Urine Appearance (Clear) Urine pH (5.0-8.0) Ur Specific [place] (1.001-1.035) Urine Protein (Negative) Urine Glucose (UA) (Negative) Urine Ketones (Negative) Urine Blood (Negative) Urine Nitrite (Negative) Urine Bilirubin (Negative) Urine Urobilinogen (<2.0) mg/dL Ur Leukocyte Esterase (Negative) Urine RBC (0-5) /hpf Urine WBC (0-5) /hpf Amorphous Sediment (None) /hpf Urine Bacteria (None) /hpf Hyaline Casts (0-2) /lpf Urine Mucus (None) /hpf 05/25/20 05/25/20 05/25/20 Range/Units 16:15 20:10 20:28 WBC (3.8-10.6) k/uL RBC (3.80-5.40) m/uL Hgb (11.4-16.0) gm/dL Hct (34.0-46.0) % MCV (80.0-100.0) fL MCH (25.0-35.0) pg MCHC (31.0-37.0) g/dL RDW (11.5-15.5) % Plt Count (150-450) k/uL Neutrophils % % Lymphocytes % % Monocytes % % Eosinophils % % Basophils % % Neutrophils # (1.3-7.7) k/uL Lymphocytes # (1.0-4.8) k/uL Monocytes # (0-1.0) k/uL Eosinophils # (0-0.7) k/uL Basophils # (0-0.2) k/uL Hypochromasia PT (9.0-12.0) sec INR (<1.2) APTT (22.0-30.0) sec D-Dimer 1.49 H (<0.60) mg/L FEU Sample Site Left Radial ABG pH 7.23 L (7.35-7.45) ABG pCO2 83 H* (35-45) mmHg ABG pO2 191 H (83-108) mmHg ABG HCO3 35 H (21-25) mmol/L ABG Total CO2 37 H (19-24) mmol/L ABG O2 Saturation 99.2 H (94-97) % ABG Base Excess 7.3 mmol/L Gregor Test Yes FiO2 28 % Sodium (137-145) mmol/L Potassium (3.5-5.1) mmol/L Chloride (98-107) mmol/L Carbon Dioxide (22-30) mmol/L Anion Gap mmol/L BUN (7-17) mg/dL Creatinine (0.52-1.04) mg/dL Est GFR (CKD-EPI)AfAm (>60 ml/min/1.73 sqM) Est GFR (CKD-EPI)NonAf (>60 ml/min/1.73 sqM) Glucose (74-99) mg/dL Plasma Lactic Acid Maulik (0.7-2.0) mmol/L Calcium (8.4-10.2) mg/dL Magnesium (1.6-2.3) mg/dL Total Bilirubin (0.2-1.3) mg/dL AST (14-36) U/L ALT (4-34) U/L Alkaline Phosphatase (38-126) U/L Troponin I (0.000-0.034) ng/mL NT-Pro-B Natriuret Pep pg/mL Total Protein (6.3-8.2) g/dL Albumin (3.5-5.0) g/dL TSH (0.465-4.680) mIU/L Urine Color Yellow Urine Appearance Turbid H (Clear) Urine pH 6.0 (5.0-8.0) Ur Specific [place] 1.030 (1.001-1.035) Urine Protein 1+ H (Negative) Urine Glucose (UA) Negative (Negative) Urine Ketones Trace H (Negative) Urine Blood Trace H (Negative) Urine Nitrite Negative (Negative) Urine Bilirubin Negative (Negative) Urine Urobilinogen 3.0 (<2.0) mg/dL Ur Leukocyte Esterase Negative (Negative) Urine RBC 3 (0-5) /hpf Urine WBC 16 H (0-5) /hpf Amorphous Sediment Rare H (None) /hpf Urine Bacteria Many H (None) /hpf Hyaline Casts 15 H (0-2) /lpf Urine Mucus Many H (None) /hpf 10/04/20 Range/Units 23:14 WBC (3.8-10.6) k/uL RBC (3.80-5.40) m/uL Hgb (11.4-16.0) gm/dL Hct (34.0-46.0) % MCV (80.0-100.0) fL MCH (25.0-35.0) pg MCHC (31.0-37.0) g/dL RDW (11.5-15.5) % Plt Count (150-450) k/uL Neutrophils % % Lymphocytes % % Monocytes % % Eosinophils % % Basophils % % Neutrophils # (1.3-7.7) k/uL Lymphocytes # (1.0-4.8) k/uL Monocytes # (0-1.0) k/uL Eosinophils # (0-0.7) k/uL Basophils # (0-0.2) k/uL Hypochromasia PT (9.0-12.0) sec INR (<1.2) APTT (22.0-30.0) sec D-Dimer (<0.60) mg/L FEU Sample Site Right Radial ABG pH 7.27 L (7.35-7.45) ABG pCO2 74 H* (35-45) mmHg ABG pO2 140 H (83-108) mmHg ABG HCO3 34 H (21-25) mmol/L ABG Total CO2 36 H (19-24) mmol/L ABG O2 Saturation 98.6 H (94-97) % ABG Base Excess 7.1 mmol/L Gregor Test Yes FiO2 50 % Sodium (137-145) mmol/L Potassium (3.5-5.1) mmol/L Chloride (98-107) mmol/L Carbon Dioxide (22-30) mmol/L Anion Gap mmol/L BUN (7-17) mg/dL Creatinine (0.52-1.04) mg/dL Est GFR (CKD-EPI)AfAm (>60 ml/min/1.73 sqM) Est GFR (CKD-EPI)NonAf (>60 ml/min/1.73 sqM) Glucose (74-99) mg/dL Plasma Lactic Acid Maulik (0.7-2.0) mmol/L Calcium (8.4-10.2) mg/dL Magnesium (1.6-2.3) mg/dL Total Bilirubin (0.2-1.3) mg/dL AST (14-36) U/L ALT (4-34) U/L Alkaline Phosphatase (38-126) U/L Troponin I (0.000-0.034) ng/mL NT-Pro-B Natriuret Pep pg/mL Total Protein (6.3-8.2) g/dL Albumin (3.5-5.0) g/dL TSH (0.465-4.680) mIU/L Urine Color Urine Appearance (Clear) Urine pH (5.0-8.0) Ur Specific [place] (1.001-1.035) Urine Protein (Negative) Urine Glucose (UA) (Negative) Urine Ketones (Negative) Urine Blood (Negative) Urine Nitrite (Negative) Urine Bilirubin (Negative) Urine Urobilinogen (<2.0) mg/dL Ur Leukocyte Esterase (Negative) Urine RBC (0-5) /hpf Urine WBC (0-5) /hpf Amorphous Sediment (None) /hpf Urine Bacteria (None) /hpf Hyaline Casts (0-2) /lpf Urine Mucus (None) /hpf Critical Care Time Critical Care Time: Yes Total Critical Care Time: 33 <Andres Dimas - Last Filed: 10/05/19 23:39> Disposition Is patient prescribed a controlled substance at d/c from ED?: No Time of Disposition: 23:20 <Chan Zurita - Last Filed: 10/05/19 23:02> <Andres Dimas - Last Filed: 10/05/19 23:39> Clinical Impression: COPD exacerbation, Elevated troponin, Hypercapnia Disposition: ADMITTED IP TO THIS HOSP Condition: Critical Referrals: Jannette Palm DO [Primary Care Provider] - 1-2 days
[2019-10-05 17:15] LABS: Basophils # (A) 0.1 k/uL (0-0.2); Basophils % (A) 1 %; Eosinophils # (A) 0.2 k/uL (0-0.7); Eosinophils % (A) 2 %; HGB 11.7 gm/dL (11.4-16.0); Hypochromasia Marked; Lymphocytes # (A) 0.8 k/uL (1.0-4.8); Lymphocytes % (A) 7 %; MCH 28.2 pg (25.0-35.0); MCV 94.1 fL (80.0-100.0); Mean Platelet Volume 6.9; Monocytes % (A) 9 %; Neutrophils % (A) 80 %; Platelet Count 261 k/uL (150-450); RBC 4.14 m/uL (3.80-5.40); RDW 14.9 % (11.5-15.5); WBC 11.3 k/uL (3.8-10.6)
--- NOTE | 2019-10-05 17:32 | XR ---
EXAMINATION TYPE: XR chest 1V portable DATE OF EXAM: 10/05/2019 COMPARISON: 08/05/2018 HISTORY: Cough TECHNIQUE: FINDINGS: Heart appears enlarged. There is probably a hiatal hernia. There is mild pulmonary congesti on. There is poor inspiration. There is elevation of the right diaphragm. Thoracic aorta is atheromat ous. IMPRESSION: Cardiomegaly and probable mild heart failure that is increased compared to old exam. 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
[2019-10-05 17:35] LABS: ALT 15 U/L (4-34); AST 42 U/L (14-36); African American GFR (CKD) >90 (>60 ml/min/1.73 sqM); Albumin 3.1 g/dL (3.5-5.0); Alkaline Phosphatase 91 U/L (38-126); Anion Gap 3 mmol/L; Blood Urea Nitrogen 18 mg/dL (7-17); Calcium 8.6 mg/dL (8.4-10.2); Carbon Dioxide 35 mmol/L (22-30); Chloride 102 mmol/L (98-107); Glucose 83 mg/dL (74-99); Magnesium 1.9 mg/dL (1.6-2.3); Non-African American GFR(CKD) 81 (>60 ml/min/1.73 sqM); Potassium 3.9 mmol/L (3.5-5.1); Sodium 140 mmol/L (137-145); Total Protein 5.7 g/dL (6.3-8.2)
[2019-10-05 17:51] LABS: Prothrombin Time 10.8 sec (9.0-12.0)
[2019-10-05 17:56] LABS: Partial Thromboplastin Time 21.3 sec (22.0-30.0)
--- NOTE | 2019-10-05 20:00 | CT ---
EXAMINATION TYPE: CT chest angio for PE DATE OF EXAM: 10/05/2019 COMPARISON: 06/27/2018 HISTORY: Shortness of breath. CT DLP: 581.3 mGycm Automated exposure control for dose reduction was used. CONTRAST: Performed with IV Contrast, patient injected with 100 mL of Isovue 370. There are 3-D post processed images. There is interstitial infiltrates and atelectasis in the lower lung lópez. There is elevated right diaphragm with atelectasis right lung base. Heart is enlarged. There is no pericardial effusion. Asce nding aorta measures 4 cm. There is no sign of dissection. There are large pulmonary arteries. I see no filling defect in the pulmonary arteries. There are a few paratracheal lymph nodes that measure up to 1 cm. There are no hilar masses. There is very small right pleural effusion. There is gastric sle nedra noted at the gastric fundus. There is some spurring in the thoracic spine. I see no bony destruct darrin process. IMPRESSION: No evidence of pulmonary embolism. Cardiomegaly and mild aneurysm of the ascending aorta unchanged. There are some infiltrates and atele ctasis at the lung bases that appears slightly worse than last exam. Small right pleural effusion imp roved compared to last exam. Nonspecific mediastinal lymph nodes unchanged. Chronic elevation of the right diaphragm unchanged. There is clearing of the abdominal ascites fluid compared to old exam. There are probably small calcified gallstones.
[2019-10-05 20:15] LABS: ABG Base Excess 7.3 mmol/L; ABG HCO3 35 mmol/L (21-25); ABG Oxygen Saturation 99.2 % (94-97); ABG PH 7.23 (7.35-7.45); ABG PO2 191 mmHg (83-108); ABG TCO2 37 mmol/L (19-24); Allen Test Performed? Yes
[2019-10-05 20:18] LABS: ABG PCO2 83 mmHg (35-45)
[2019-10-05 20:51] LABS: Amorphous Sediment,Urine Rare /hpf; Appearance,Urine Turbid (Clear); Bacteria,Urine Many /hpf; Bilirubin,Urine Negative (Negative); Blood,Urine Trace (Negative); Color,Urine Yellow; Glucose,Urine (UA) Negative (Negative); Hyaline Casts,Urine 15 /lpf (0-2); Ketones,Urine Trace (Negative); Leukocyte Esterase,Urine Negative (Negative); Mucus,Urine Many /hpf; Nitrite,Urine Negative (Negative); Protein,Urine 1+ (Negative); RBC,Urine 3 /hpf (0-5); WBC,Urine 16 /hpf (0-5)
[2019-10-05] MEDS ORDERED: methylPREDNISolone SOD SUCCI 125 MG/2 ML VIAL IV STA (22:00)
[2019-10-05] MEDS ORDERED: AZITHROMYCIN 500 MG in SODIUM CHLORIDE 0.9% 250 ML IVPB ONE (22:00)
[2019-10-05] MEDS ORDERED: SUCCINYLCHOLINE CHLORIDE VIAL 200 MG/10 ML VIAL IV STA (22:00)
[2019-10-05] MEDS ORDERED: MIDAZOLAM 1 MG/ML 5 ML VIAL IV STA (22:00)
--- NOTE | 2019-10-05 22:43 | XR ---
EXAMINATION TYPE: XR chest 1V portable DATE OF EXAM: 10/05/2019 COMPARISON: 10/05/2019 HISTORY: Cough TECHNIQUE: 10:30 PM FINDINGS: There is endotracheal tube which is 3 cm into the right mainstem bronchus. There is increas ed density left hemithorax consistent with developing atelectasis. The right lung is clear. There is no heart failure. Heart is enlarged. IMPRESSION: Malposition of the endotracheal tube. There is developing significant left side atelectas is.
[2019-10-05] MEDS ORDERED: LORazepam 2 MG/ML INJ IV PRN ×2 (22:46)
[2019-10-05] MEDS ORDERED: IPRATROPIUM-ALBUTEROL 3 ML NEB INHALATION PRN (22:46)
[2019-10-05] MEDS ORDERED: BUDESONIDE 0.5 MG/2 ML NEBU INHALATION SCH (23:00)
[2019-10-05] MEDS: PROPOFOL 1,000 MG in EMPTY BAG 1 BAG IV SCH (23:06)
--- NOTE | 2019-10-05 23:13 | XR ---
EXAMINATION TYPE: XR chest 1V portable DATE OF EXAM: 10/05/2019 COMPARISON: Today HISTORY: Check tube placement TECHNIQUE: FINDINGS: Endotracheal tube is 1 cm from the tucker. There is some diffuse infiltrate in the left jefe g. Heart appears enlarged. There is nasogastric tube in the tip is not well seen. Tip is probably in the stomach. I see no gross heart failure. IMPRESSION: Endotracheal tube is low and should BE pulled back 2 to 3 cm. There is improvement in the left side atelectasis compared to recent exam.
[2019-10-05] MEDS ORDERED: NALOXONE 0.4 MG/ML 1 ML VIAL IV PRN (23:20)
[2019-10-05 23:25] LABS: ABG Base Excess 7.1 mmol/L; ABG HCO3 34 mmol/L (21-25); ABG Oxygen Saturation 98.6 % (94-97); ABG PH 7.27 (7.35-7.45); ABG PO2 140 mmHg (83-108); ABG TCO2 36 mmol/L (19-24); Allen Test Performed? Yes
[2019-10-05 23:32] LABS: ABG PCO2 74 mmHg (35-45)
[2019-10-06 01:54] LABS: Glucose,Whole Blood 70 mg/dL (75-99)
[2019-10-06] MEDS: IPRATROPIUM-ALBUTEROL 3 ML NEB INHALATION SCH ×7 (02:40→23:28)
[2019-10-06] MEDS: PROPOFOL 1,000 MG in EMPTY BAG 1 BAG IV SCH ×4 (03:18→21:56)
[2019-10-06] MEDS: methylPREDNISolone SOD SUCCI 125 MG/2 ML VIAL IV SCH ×5 (03:21→22:32)
[2019-10-06 05:23] LABS: ABG Base Excess 7.6 mmol/L; ABG HCO3 32 mmol/L (21-25); ABG Oxygen Saturation 99.6 % (94-97); ABG PCO2 48 mmHg (35-45); ABG PH 7.43 (7.35-7.45); ABG PO2 189 mmHg (83-108); ABG TCO2 33 mmol/L (19-24); Allen Test Performed? Yes
[2019-10-06 05:47] LABS: Basophils % (A) 0 %; Eosinophils # (A) 0.1 k/uL (0-0.7); Eosinophils % (A) 1 %; HCT 35.8 % (34.0-46.0); HGB 10.9 gm/dL (11.4-16.0); Hypochromasia Marked; Lymphocytes # (A) 0.2 k/uL (1.0-4.8); Lymphocytes % (A) 2 %; MCH 29.4 pg (25.0-35.0); MCHC 30.4 g/dL (31.0-37.0); MCV 96.6 fL (80.0-100.0); Monocytes # (A) 0.3 k/uL (0-1.0); Monocytes % (A) 3 %; Neutrophils # (A) 9.5 k/uL (1.3-7.7); Neutrophils % (A) 94 %; Platelet Count 190 k/uL (150-450); RBC 3.71 m/uL (3.80-5.40); RDW 14.6 % (11.5-15.5); WBC 10.1 k/uL (3.8-10.6)
[2019-10-06 05:58] LABS: Albumin 2.8 g/dL (3.5-5.0); Calcium 8.3 mg/dL (8.4-10.2); Potassium 4.4 mmol/L (3.5-5.1); Total Bilirubin 0.8 mg/dL (0.2-1.3); Total Protein 5.3 g/dL (6.3-8.2)
[2019-10-06] MEDS: SODIUM CHLORIDE 0.9% 1,000 ML IV SCH ×2 (07:14→22:32)
[2019-10-06] MEDS: FORMOTEROL FUMARATE 20 MCG/2 ML NEBU INHALATION SCH ×2 (07:28→21:23)
[2019-10-06] MEDS: BUDESONIDE 1 MG/2 ML NEBU INHALATION SCH ×2 (07:30→21:23)
--- NOTE | 2019-10-06 08:54 | P.CRDCN ---
History of Present Illness Consult date: 10/06/19 Chief complaint: generalized weakness History of present illness: This is an 7-year-old female patient with a past medical history significant for chronic obstructive pulmonary disease, paroxysmal atrial fibrillation, valvular heart disease with history of mitral valve endocarditis, moderate tricuspid regurgitation, severe pulmonary hypertension as well as history of diastolic congestive heart failure. We requested to see the patient in consultation for abnormal cardiac enzymes. Currently the patient is intubated and she is on mechanical ventilation. The history was taken from the chart. The patient was brought to the hospital and emergency department with generalized weakness for the last 24 hours. No indication that she didn't have any symptoms of chest pain or chest discomfort but she was experiencing increasing in the shortness of breath. No fever or chills, no feeling of dizziness or lightheadedness, and no loss of consciousness or syncope. The patient was found to be hypoxic and subsequently she was intubated and placed on mechanical ventilation. When she was seen this morning, she was hemodynamically stable and not on any vasopressors. The chest x-ray was reviewed and showed finding consistent mostly with COPD. BNP came in to be slightly elevated. The patient does have bilateral lower extremities edema on examination but her chest examination overalls showed clear breathing sounds bilaterally. The first set of troponin came in to be slightly elevated. The EKG showed sinus tachycardia with diffuse nonspecific ST and T wave abnormalities. The patient had an echocardiogram in 2019 and that revealed normal left ventricular systolic function with mild MR, moderate TR, severe pulmonary hypertension. No indication that the patient didn't have any history of coronary artery disease or coronary revascularization in the past. Past Medical History Past Medical History: Atrial Fibrillation, Atrial Flutter, Asthma, Heart Failure, COPD, Diabetes Mellitus, Hyperlipidemia, Hypertension, Osteoarthritis (OA), Pneumonia, Skin Disorder, Sleep Apnea/CPAP/BIPAP Additional Past Medical History / Comment(s): heart valve problem 1 year ago-not sure of name, no cpap used, anemia, "chocolate" color stool, degenerative arthritis, "Bite" swenson on arms-cause unknown, no current rx for diabetes-diet control, leakage of urine, uses walker History of Any Multi-Drug Resistant Organisms: MRSA Date of last positivie culture/infection: 06/27/18 MDRO Source:: Right Leg Past Surgical History: Appendectomy, Bariatric Surgery, Hysterectomy, Joint Replacement, Orthopedic Surgery, Tonsillectomy Additional Past Surgical History / Comment(s): Picc line insertion/later removed, lap band, right knee replacement x 2 & left knee replaced with revision, L ganglion wirst surg., left ankle ORIF, right trigger thumb surg. juan cataracts Past Anesthesia/Blood Transfusion Reactions: Previous Problems w/ Anesthesia Additional Past Anesthesia/Blood Transfusion Reaction / Comment(s): difficulty waking up @times Past Psychological History: Depression Additional Psychological History / Comment(s): . Smoking Status: Never smoker Past Alcohol Use History: Rare Past Drug Use History: None Reported - Past Family History Daughter(s) Family Medical History: Deep Vein Thrombosis (DVT), Pulmonary Embolus Father Family Medical History: Cancer Mother Additional Family Medical History / Comment(s): Mother had hypotension. Medications and Allergies Home Medications Medication Instructions Recorded Confirmed Type Amiodarone [Cordarone] 200 mg PO TID tab 07/07/18 10/05/19 Rx Apixaban [Eliquis] 5 mg PO BID tab 07/07/18 10/05/19 Rx Metoprolol Tartrate [Lopressor] 25 mg PO BID tab 07/07/18 10/05/19 Rx Furosemide [Lasix] 40 mg PO BID 10/05/19 10/05/19 History Levothyroxine Sodium [Synthroid] 100 mcg PO DAILY 10/05/19 10/05/19 History Montelukast [Singulair] 10 mg PO DAILY 10/05/19 10/05/19 History Potassium Chloride [Klor-Con 8] 8 meq PO DAILY 10/05/19 10/05/19 History Pravastatin Sodium [Pravachol] 20 mg PO DAILY 10/05/19 10/05/19 History Allergies Allergy/AdvReac Type Severity Reaction Status Date / Time thallium-201 Allergy Intermediate Rash/Hives Verified 10/05/19 22:11 Sulfa (Sulfonamide AdvReac Severe low Verified 10/05/19 22:11 Antibiotics) hemoglobin aspirin AdvReac Mild blood in Verified 10/05/19 22:11 stool vancomycin AdvReac Rash/Hives Verified 10/05/19 22:11 steri strips AdvReac Mild blisters Uncoded 06/26/18 12:43 skin Physical Exam Vitals: Vital Signs Temp Pulse Resp BP Pulse Ox 10/06/19 08:10 80 05//20 07:59 76 05/20 07:58 76 05/20 07:39 76 05/20 07:00 70 16 111/58 100 05/20 06:50 70 16 111/58 100 05/20 06:40 76 15 97/61 100 05/20 06:30 68 14 117/64 100 05/20 06:20 79 16 117/64 100 05/20 06:10 65 15 113/74 100 05 06:00 70 14 132/72 100 0520 05:50 75 15 100 05/20 05:40 78 17 100 05/ 05:30 79 17 120/76 100 05/ 05:20 75 13 120/76 99 05 05:10 75 19 123/65 100 05 05:00 73 16 113/70 100 05/ 04:50 73 14 113/70 100 05 04:40 74 17 115/63 100 05 04:30 76 19 117/60 100 0520 04:20 78 14 117/60 100 05/20 04:10 69 15 113/78 100 05 04:00 71 17 119/78 100 05 03:50 80 14 119/78 100 0520 03:40 70 14 143/64 100 05 03:38 70 05 03:30 70 12 88/58 97 0520 03:23 65 0520 03:20 69 11 L 88/58 97 0520 03:10 64 14 88/58 96 0520 03:00 67 12 94/66 96 05//20 02:50 64 14 94/66 95 05/20 02:40 68 14 94/66 98 05/20 02:30 72 11 L 132/70 94 L 0520 02:20 73 14 132/70 100 0520 02:10 98.9 F 77 11 L 132/70 97 05//20 02:00 19 05 01:40 132/71 05/20 01:33 77 16 132/71 98 05/20 01:30 81 11 L 129/59 10/06/19 01:20 77 9 L 129/59 10/06/19 01:10 81 7 L 117/68 10/06/19 01:00 81 9 L 118/68 10/06/19 00:50 85 14 118/68 99 10/06/19 00:40 82 8 L 115/59 10/06/19 00:36 80 17 115/59 10/06/19 00:30 85 9 L 118/66 10/06/19 00:20 85 14 118/66 10/06/19 00:10 91 11 L 124/62 79 L 10/06/19 00:05 89 18 124/62 99 10/06/19 00:00 88 14 139/60 10/05/19 23:50 82 9 L 139/60 95 10/05/19 23:40 89 14 146/68 94 L 10/05/19 23:30 93 14 10/05/19 23:26 92 18 146/68 98 10/05/19 23:20 92 14 167/93 89 L 10/05/19 23:10 94 14 142/70 10/05/19 23:00 92 17 142/70 98 10/05/19 22:50 93 19 142/70 10/05/19 22:40 95 19 142/70 73 L 10/05/19 22:30 92 11 L 142/70 10/05/19 22:20 90 14 91 L 10/05/19 22:10 80 19 96 10/05/19 22:09 118 H 30 H 96 10/05/19 20:51 86 14 140/81 93 L 10/05/19 19:24 98.1 F 98 18 157/69 97 Intake and Output 10/05/19 10/06/19 10/06/19 22:59 06:59 14:59 Intake Total 178.236 120 Output Total 260 25 Balance -81.764 95 Intake: Intake, IV Titration 178.236 120 Amount Propofol 1,000 mg In 78.236 100 Empty Bag 1 bag @ Titrate IV .Q0M COURTNEY Rx#: [id number] Sodium Chloride 0.9% 1, 100 20 000 ml @ 20 mls/hr IV . Q24H [facility] Rx#:[id number] Output: Urine 260 25 Other: Voiding Method Indwelling Catheter Weight 127.006 kg 125.7 kg - Constitutional General appearance: no acute distress - Respiratory Respiratory: bilateral: CTA - Cardiovascular Rhythm: regular Heart sounds: normal: S1, S2 Results 10/06/19 04:47 10/06/19 04:47 Cardiac Enzymes 10/05/19 10/05/19 10/06/19 Range/Units 16:14 16:14 04:47 AST 42 H (14-36) U/L Troponin I 0.076 H* 0.120 H* (0.000-0.034) ng/mL 10/06/19 Range/Units 04:47 AST 50 H (14-36) U/L Troponin I (0.000-0.034) ng/mL Coagulation 10/05/19 Range/Units 16:14 PT 10.8 (9.0-12.0) sec APTT 21.3 L (22.0-30.0) sec CBC 10/05/19 10/06/19 Range/Units 16:14 04:47 WBC 11.3 H 10.1 (3.8-10.6) k/uL RBC 4.14 3.71 L (3.80-5.40) m/uL Hgb 11.7 10.9 L (11.4-16.0) gm/dL Hct 39.0 35.8 (34.0-46.0) % Plt Count 261 190 (150-450) k/uL Comprehensive Metabolic Panel 10/05/19 10/06/19 Range/Units 16:14 04:47 Sodium 140 138 (137-145) mmol/L Potassium 3.9 4.4 (3.5-5.1) mmol/L Chloride 102 104 (98-107) mmol/L Carbon Dioxide 35 H 28 (22-30) mmol/L BUN 18 H 19 H (7-17) mg/dL Creatinine 0.71 0.75 (0.52-1.04) mg/dL Glucose 83 82 (74-99) mg/dL Calcium 8.6 8.3 L (8.4-10.2) mg/dL AST 42 H 50 H (14-36) U/L ALT 15 17 (4-34) U/L Alkaline Phosphatase 91 78 (38-126) U/L Total Protein 5.7 L 5.3 L (6.3-8.2) g/dL Albumin 3.1 L 2.8 L (3.5-5.0) g/dL Current Medications Generic Name Dose Route Start Last Admin Trade Name Freq PRN Reason Stop Dose Admin Albuterol/Ipratropium 3 ml 10/06/19 00:00 10/06/19 07:28 Duoneb 0.5 Mg-3 Mg/3 Ml Soln INHALATION 3 ml RT-Q4H [facility] Administration Albuterol/Ipratropium 3 ml 10/05/19 22:46 Duoneb 0.5 Mg-3 Mg/3 Ml Soln INHALATION RT-Q2H PRN Shortness Of Breath Or Wheezing Aspirin 81 mg 10/06/19 09:00 Aspirin PO DAILY [facility] Budesonide 1 mg 10/06/19 08:00 10/06/19 07:30 Pulmicort INHALATION 1 mg RT-BID [facility] Administration Chlorhexidine Gluconate 15 ml 10/06/19 09:00 Peridex MUCOUS MEM BID [facility] Enoxaparin Sodium 40 mg 10/06/19 09:00 Lovenox SQ DAILY [facility] Formoterol Fumarate 20 mcg 10/06/19 08:00 10/06/19 07:28 Perforomist INHALATION 20 mcg RT-BID [facility] Administration Propofol 1,000 mg/ IV Solution 100 mls @ 0 mls/hr 10/05/19 23:00 10/06/19 07:13 IV 35 mcg/kg/min .Q0M [facility] 26.671 mls/hr Administration Protocol Titrate Sodium Chloride 1,000 mls @ 20 mls/hr 10/05/19 23:30 10/06/19 07:14 Saline 0.9% IV 20 mls/hr .Q24H [facility] Administration Lorazepam 2 mg 10/05/19 22:46 Ativan IV Q1HR PRN Severe Agitation Lorazepam 1 mg 10/05/19 22:46 Ativan IV Q1HR PRN Mild Agitation Methylprednisolone Sodium Succinate 60 mg 10/05/19 23:30 10/06/19 03:21 Solu-Medrol IV 60 mg Q6H [facility] Administration Metoprolol Tartrate 12.5 mg 10/06/19 09:00 Lopressor PO BID [facility] Naloxone HCl 0.2 mg 10/05/19 23:20 Narcan IV Q2M PRN Opioid Reversal Intake and Output 10/05/19 10/06/1920 22:59 06:59 14:59 Intake Total 178.236 120 Output Total 260 25 Balance -81.764 95 Intake: Intake, IV Titration 178.236 120 Amount Propofol 1,000 mg In 78.236 100 Empty Bag 1 bag @ Titrate IV .Q0M [facility] Rx#: [id number] Sodium Chloride 0.9% 1, 100 20 000 ml @ 20 mls/hr IV . Q24H [facility] Rx#:[id number] Output: Urine 260 25 Other: Voiding Method Indwelling Catheter Weight 127.006 kg 125.7 kg 10/06/19 04:47 10/06/19 04:47 Assessment and Plan Assessment: assessment #1 acute hypoxic respiratory failure #2 exacerbation #3 a component of right heart failure #4 valvular heart disease #5 mildly abnormal troponin #6 multiple comorbid conditions plan #1 follow-up with serial cardiac enzymes #2 start the patient on aspirin as well as metoprolol #3 obtain an echocardiogram was Doppler #4 follow-up with the patient
--- NOTE | 2019-10-06 08:56 | XR ---
EXAMINATION TYPE: XR chest 1V portable DATE OF EXAM: 10/06/2019 COMPARISON: Prior chest x-ray 10/05/2019 HISTORY: Endotracheal tube reposition TECHNIQUE: Single frontal view of the chest is obtained. FINDINGS: Endotracheal tube is superimposed over the tracheal air column in appropriate position, NG tube is in place with the distal tip overlying the region of the stomach. Patient is post lap band, the lap band shows a somewhat transverse orientation. There is no evident pneumothorax or pleural eff usion. Right hemidiaphragm remains elevated. Heart is enlarged. Exam is rotated. Central vascularity is prominent. Patchy bilateral airspace disease is present within the lungs, retrocardiac density obs cures the medial aspect of left hemidiaphragm. The aorta is dense and aneurysmal. IMPRESSION: Correlate for congestive heart failure, pneumonia, low lung volume may be accentuating t he appearance of the findings within the chest. Correlate for possible pulmonary artery hypertension. Aortic aneurysm.
[2019-10-06] MEDS: ASPIRIN 81 MG PO SCH (09:22)
[2019-10-06] MEDS: METOPROLOL TARTRATE 12.5 MG TAB PO SCH ×2 (09:22→20:51)
[2019-10-06] MEDS: ENOXAPARIN 40 MG/0.4 ML SYRINGE SQ SCH (09:22)
[2019-10-06] MEDS: CHLORHEXIDINE GLUCONATE 15 ML CUP MUCOUS MEM SCH ×2 (09:22→20:54)
[2019-10-06] MEDS ORDERED: PROPOFOL 100 ML IV ONE (10:49)
[2019-10-06] MEDS: AZITHROMYCIN 500 MG TAB NG-TUBE SCH (10:51)
[2019-10-06 11:32] LABS: Glucose,Whole Blood 117 mg/dL (75-99)
--- NOTE | 2019-10-06 14:01 | CONS ---
CONSULTATION PULMONARY/CRITICAL CARE CONSULTATION: DATE OF SERVICE: 10/06/2019 This is an 79-year-old female who apparently was seen in the emergency room by Dr. Dimas on 10/04. She apparently has a history of atrial fibrillation, asthma, heart failure and COPD as well as diabetes, hyperlipidemia, and hypertension. She apparently initially presented with complaints of weakness in the emergency department. She apparently had not been feeling well for about a day or so prior to admission. She has apparently had episodes of coughing. She denied any fever. She did admit to being a bit short of breath. For that reason, she was evaluated there. The patient apparently became very drowsy and somnolent in the emergency room, she was difficult to arouse according to Dr. Dimas' noted and they attempted BiPAP initially, but that did not seem to help and therefore she was taken to the trauma room and intubated. The endotracheal tube was found to be in the right mainstem. It was pulled back. Currently, she is on the ventilator here in the intensive care unit. She is on the volume assist-control mode rate of 14 with a rate of 15 spontaneously. Her tidal volume is 400, FiO2 is 50%, and I told the nurses it could be dropped back to 35%. She is on a PEEP of 5. Blood gases show pO2 of 189, pCO2 of 48, pH of 7.43. These blood gases are consistent with primarily mixed acid-base disturbance, a combined respiratory acidosis and metabolic alkalosis. Saline is running at 20 mL an hour. She is on Diprivan at 35 mcg/kg per minute. She is currently in atrial fibrillation. Her COVID testing is pending. . HOME MEDICATIONS: Reviewed. She is on Lasix, Synthroid, Singulair, potassium, Pravachol, amiodarone, Eliquis, metoprolol. ALLERGIES: VALIUM 201, SULFA ANTIBIOTICS, ASPIRIN, VANCOMYCIN, and STERI-STRIPS. MEDICAL HISTORY: Apparently positive for chronic atrial fibrillation/flutter, asthma, heart failure, COPD, diabetes mellitus, hyperlipidemia, hypertension, DJD, pneumonia, and sleep apnea syndrome. She also apparently has a history of urinary incontinence. SURGICAL HISTORY: Includes bariatric surgery, appendectomy, hysterectomy, joint replacement, tonsillectomy, PICC line insertion, right knee replacement x2, left knee replacement with revision, left ganglion wrist surgery, left ankle ORIF, right trigger thumb surgery, bilateral cataract surgery. SOCIAL HISTORY: Positive for rare alcohol use, and negative for tobacco use. There is no illicit drug use. FAMILY HISTORY: Positive for daughter with deep venous thrombosis and pulmonary embolism. Father with cancer and mother who has a history of hypotension. REVIEW OF SYSTEMS: Could not be obtained. The patient is currently intubated and mechanically ventilated and sedated with propofol. She apparently told the ER staff that she was "weak" when she came to the emergency room. Current vital signs are reviewed. Temperature is 98.9, heart rate 65, respiratory rate 16, blood pressure 113/74 mean 87 and saturations 100%. Appears in no acute distress. Currently sedated on the mechanical ventilator. HEENT: Examination is grossly unremarkable. There is an orally placed NG tube and endotracheal tube. NECK: Supple. Full range of motion. No adenopathy. Neck veins are flat. CARDIOVASCULAR: Examination reveals regular rhythm and rate. Heart rate mid 60s. S1, S2 normal. LUNGS: Reveal diffuse coarse rhonchi. No wheezes or crackles. Breath sounds equal. ABDOMEN: Obese, bowel sounds are heard. EXTREMITIES: Reveal significant chronic venostasis changes to lower extremities, he has also got significant pitting edema. Lower extremities are scaly and very erythematous. SKIN: Without rash otherwise. NEUROLOGIC: Examination is difficult to assess currently because she is currently on the ventilator and sedated. LAB: Data is reviewed. White count 10.1, hemoglobin 10.9, hematocrit 35.8, platelet count 190,000, blood gases have been already noted. Sodium, potassium chloride CO2 all normal, anion gap normal. BUN and creatinine were 19 and 0.75. Troponin was 0.120 and urine was turbid with trace ketones and blood, 16 WBCs and many bacteria. A chest x-ray on the day of admission showed chronic elevated right diaphragm and cardiomegaly with mild CHF. A CT angiogram was negative for pulmonary embolism but did show some atelectasis and infiltrates at the lung bases. Follow-up chest x-ray after intubation showed an endotracheal tube that was down the right mainstem and one that is still lying lower in the trachea today. Current medications are reviewed. She is currently on Pulmicort, chlorhexidine, Lovenox, formoterol, DuoNeb, Ativan, Solu-Medrol, Narcan, propofol and saline. ASSESSMENT: 1. Acute hypoxemic respiratory failure requiring intubation and mechanical ventilation on October 04. 2. Rule out possible bilateral community-acquired pneumonia. 3. No evidence of pulmonary embolism on CT angiogram. 4. Possible urinary tract infection. 5. History of atrial fibrillation. 6. History of atrial flutter. 7. History of chronic bronchial asthma. 8. History of congestive heart failure. 9. Diabetes mellitus by history. 10.Hyperlipidemia. 11.History of hypertension. 12.History of pneumonia. 13.History of sleep apnea syndrome. 14.Hypothyroidism. 15.Multiple other medical problems and comorbidities. PLAN: The patient's medications are reviewed. Will make sure she is on appropriate medications including DuoNeb and long-acting beta agonist/inhaled corticosteroids. She is currently on IV Solu-Medrol. Will turn the FiO2 down from 50% to 35%. Will get her on tube feeds. Overall prognosis remains guarded. Additional recommendations and suggestions are forthcoming. RANJAN / MICKEYN: [id number] /
[2019-10-06 18:31] LABS: Glucose,Whole Blood 159 mg/dL (75-99)
--- NOTE | 2019-10-06 20:06 | P.HPIM ---
History of Present Illness H&P Date: 10/06/19 Chief Complaint: acute respiratory failure Nicole Goldsmith is an 79 yo F with PMH of COPD, valvular heart disease, diastolic CHF, atrial fibrillation who presented to the ED yesterday complaining of weakness. Pt is intubated and sedated, history via chart review. She came in via EMS with a a 1 day history of weakness, she did also complain of shortness of breath. She was initially afebrile, found to be hypoxic and placed on nasal cannula. CXR with mild pulmonary edema, BNP 1500, trop elevated at 0.017, WBC 11.3, bicarb 30. She was placed on BiPAP and ABG subsequently showed pH 7.23, CO2 83. Pt was intubated and sedated and started on rocephin, azithromycin and solumedrol. Today, her ABG has normalized and troponin trending down. Review of Systems ROS unobtainable: due to endotracheal tube Eyes: denies blurred vision, denies pain Ears, nose, mouth and throat: Denies headache, Denies sore throat Gastrointestinal: Denies abdominal pain, Denies diarrhea, Denies nausea, Denies vomiting Genitourinary: Denies dysuria, Denies hematuria Musculoskeletal: Denies myalgias Integumentary: Denies pruritus, Denies rash Neurological: Denies numbness, Denies weakness Psychiatric: Denies anxiety, Denies depression Endocrine: Denies fatigue, Denies weight change Past Medical History Past Medical History: Atrial Fibrillation, Atrial Flutter, Asthma, Heart Failure, COPD, Diabetes Mellitus, Hyperlipidemia, Hypertension, Osteoarthritis (OA), Pneumonia, Skin Disorder, Sleep Apnea/CPAP/BIPAP Additional Past Medical History / Comment(s): heart valve problem 1 year ago-not sure of name, no cpap used, anemia, "chocolate" color stool, degenerative art hritis, "Bite" swenson on arms-cause unknown, no current rx for diabetes-diet control, leakage of urine, uses walker History of Any Multi-Drug Resistant Organisms: MRSA Date of last positivie culture/infection: 06/27/18 MDRO Source:: Right Leg Past Surgical History: Appendectomy, Bariatric Surgery, Hysterectomy, Joint Replacement, Orthopedic Surgery, Tonsillectomy Additional Past Surgical History / Comment(s): Picc line insertion/later removed, lap band, right knee replacement x 2 & left knee replaced with revision, L ganglion wirst surg., left ankle ORIF, right trigger thumb surg. juan cataracts Past Anesthesia/Blood Transfusion Reactions: Previous Problems w/ Anesthesia Additional Past Anesthesia/Blood Transfusion Reaction / Comment(s): difficulty waking up @times Past Psychological History: Depression Additional Psychological History / Comment(s): . Smoking Status: Never smoker Past Alcohol Use History: Rare Past Drug Use History: None Reported - Past Family History Daughter(s) Family Medical History: Deep Vein Thrombosis (DVT), Pulmonary Embolus Father Family Medical History: Cancer Mother Additional Family Medical History / Comment(s): Mother had hypotension. Medications and Allergies Home Medications Medication Instructions Recorded Confirmed Type Amiodarone [Cordarone] 200 mg PO TID tab 07/07/18 10/05/19 Rx Apixaban [Eliquis] 5 mg PO BID tab 07/07/18 10/05/19 Rx Metoprolol Tartrate [Lopressor] 25 mg PO BID tab 07/07/18 10/05/19 Rx Furosemide [Lasix] 40 mg PO BID 10/05/19 10/05/19 History Levothyroxine Sodium [Synthroid] 100 mcg PO DAILY 10/05/19 10/05/19 History Montelukast [Singulair] 10 mg PO DAILY 10/05/19 10/05/19 History Potassium Chloride [Klor-Con 8] 8 meq PO DAILY 10/05/19 10/05/19 History Pravastatin Sodium [Pravachol] 20 mg PO DAILY 10/05/19 10/05/19 History Allergies Allergy/AdvReac Type Severity Reaction Status Date / Time thallium-201 Allergy Intermediate Rash/Hives Verified 10/05/19 22:11 Sulfa (Sulfonamide AdvReac Severe low Verified 10/05/19 22:11 Antibiotics) hemoglobin aspirin AdvReac Mild blood in Verified 10/05/19 22:11 stool vancomycin AdvReac Rash/Hives Verified 10/05/19 22:11 steri strips AdvReac Mild blisters Uncoded 06/26/18 12:43 skin Physical Exam Vitals: Vital Signs Temp Pulse Resp BP Pulse Ox 10/06/19 17:00 73 14 102/70 99 10/06/19 16:30 74 10/06/19 16:05 71 10/06/19 16:00 98.3 F 71 14 91/45 98 10/06/19 15:00 71 15 79/47 98 10/06/19 14:00 74 22 94/52 99 10/06/19 13:00 75 15 86/41 98 10/06/19 12:00 97.5 F L 77 12 93/47 99 10/06/19 11:38 15 10/06/19 11:32 74 05 11:16 80 10/06/19 11:00 70 15 88/49 99 10/06/19 10:00 80 15 103/56 98 10/06/19 09:00 75 14 102/63 97 05 08:10 80 05 08:00 97.6 F 73 14 118/65 100 10/06/19 07:59 76 10/06/19 07:58 76 05 07:39 76 05 07:00 70 16 111/58 100 05 06:50 70 16 111/58 100 10/06/19 06:40 76 15 97/61 100 05 06:30 68 14 117/64 100 05 06:20 79 16 117/64 100 05 06:10 65 15 113/74 100 05 06:00 70 14 132/72 100 05 05:50 75 15 100 10/06/19 05:40 78 17 100 05 05:30 79 17 120/76 100 05 05:20 75 13 120/76 99 05 05:10 75 19 123/65 100 05 05:00 73 16 113/70 100 05 04:50 73 14 113/70 100 0520 04:40 74 17 115/63 100 05 04:30 76 19 117/60 100 0520 04:20 78 14 117/60 100 0520 04:10 69 15 113/78 100 05 04:00 71 17 119/78 100 0520 03:50 80 14 119/78 100 0520 03:40 70 14 143/64 100 05 03:38 70 05 03:30 70 12 88/58 97 10/06/19 03:23 65 10/06/19 03:20 69 11 L 88/58 97 10/06/19 03:10 64 14 88/58 96 10/06/19 03:00 67 12 94/66 96 10/06/19 02:50 64 14 94/66 95 10/06/19 02:40 68 14 94/66 98 10/06/19 02:30 72 11 L 132/70 94 L 10/06/19 02:20 73 14 132/70 100 10/06/19 02:10 98.9 F 77 11 L 132/70 97 10/06/19 02:00 19 10/06/19 01:40 132/71 10/06/19 01:33 77 16 132/71 98 10/06/19 01:30 81 11 L 129/59 10/06/19 01:20 77 9 L 129/59 10/06/19 01:10 81 7 L 117/68 10/06/19 01:00 81 9 L 118/68 10/06/19 00:50 85 14 118/68 99 10/06/19 00:40 82 8 L 115/59 10/06/19 00:36 80 17 115/59 10/06/19 00:30 85 9 L 118/66 10/06/19 00:20 85 14 118/66 10/06/19 00:10 91 11 L 124/62 79 L 10/06/19 00:05 89 18 124/62 99 10/06/19 00:00 88 14 139/60 10/05/19 23:50 82 9 L 139/60 95 10/05/19 23:40 89 14 146/68 94 L 10/05/19 23:30 93 14 10/05/19 23:26 92 18 146/68 98 10/05/19 23:20 92 14 167/93 89 L 10/05/19 23:10 94 14 142/70 10/05/19 23:00 92 17 142/70 98 10/05/19 22:50 93 19 142/70 10/05/19 22:40 95 19 142/70 73 L 10/05/19 22:30 92 11 L 142/70 05 22:20 90 14 91 L 10/05/19 22:10 80 19 96 05 22:09 118 H 30 H 96 10/05/19 20:51 86 14 140/81 93 L Intake and Output 10/06/19 10/06/19 10/06/19 06:59 14:59 22:59 Intake Total 178.236 470.905 368 Output Total 260 195 95 Balance -81.764 275.905 273 Intake: Intake, IV Titration 178.236 436.905 300 Amount Propofol 1,000 mg In 78.236 196.905 Empty Bag 1 bag @ Titrate IV .Q0M [facility] Rx#: [id number] Sodium Chloride 0.9% 1, 100 240 300 000 ml @ 100 mls/hr IV . Q10H [facility] Rx#:[id number] Tube Feeding 34 68 Output: Urine 260 195 95 Other: Voiding Method Indwelling Catheter Indwelling Catheter Indwelling Catheter Weight 125.7 kg 125.7 kg General: thin, elderly female, NAD. Vitals reviewed Eyes: PERRL, EOMI, conjunctiva normal HENT: normocephalic, mucus membranes moist. Intubated Neck: supple, no JVD Lungs: diminished breath sounds, no wheezing CV: Regular rate and rhythm, no murmur. Peripheral pulses 2+ Abdomen: soft, nondistended, no organomegaly Lymph: no cervical or axillary LAD Skin: warm and dry. Neuro: sedated on propofol Results CBC & Chem 7: 10/06/19 04:47 10/06/19 04:47 Labs: Abnormal Lab Results - Last 24 Hours (Table) 10/05/19 10/05/19 10/05/19 Range/Units 20:10 20:28 23:14 RBC (3.80-5.40) m/uL Hgb (11.4-16.0) gm/dL MCHC (31.0-37.0) g/dL Neutrophils # (1.3-7.7) k/uL Lymphocytes # (1.0-4.8) k/uL ABG pH 7.23 L 7.27 L (7.35-7.45) ABG pCO2 83 H* 74 H* (35-45) mmHg ABG pO2 191 H 140 H (83-108) mmHg ABG HCO3 35 H 34 H (21-25) mmol/L ABG Total CO2 37 H 36 H (19-24) mmol/L ABG O2 Saturation 99.2 H 98.6 H (94-97) % BUN (7-17) mg/dL POC Glucose (mg/dL) (75-99) mg/dL Calcium (8.4-10.2) mg/dL AST (14-36) U/L Troponin I (0.000-0.034) ng/mL Total Protein (6.3-8.2) g/dL Albumin (3.5-5.0) g/dL Urine Appearance Turbid H (Clear) Urine Protein 1+ H (Negative) Urine Ketones Trace H (Negative) Urine Blood Trace H (Negative) Urine WBC 16 H (0-5) /hpf Amorphous Sediment Rare H (None) /hpf Urine Bacteria Many H (None) /hpf Hyaline Casts 15 H (0-2) /lpf Urine Mucus Many H (None) /hpf 10/06/19 10/06/19 10/06/19 Range/Units 01:52 04:47 04:47 RBC 3.71 L (3.80-5.40) m/uL Hgb 10.9 L (11.4-16.0) gm/dL MCHC 30.4 L (31.0-37.0) g/dL Neutrophils # 9.5 H (1.3-7.7) k/uL Lymphocytes # 0.2 L (1.0-4.8) k/uL ABG pH (7.35-7.45) ABG pCO2 (35-45) mmHg ABG pO2 (83-108) mmHg ABG HCO3 (21-25) mmol/L ABG Total CO2 (19-24) mmol/L ABG O2 Saturation (94-97) % BUN (7-17) mg/dL POC Glucose (mg/dL) 70 L (75-99) mg/dL Calcium (8.4-10.2) mg/dL AST (14-36) U/L Troponin I 0.120 H* (0.000-0.034) ng/mL Total Protein (6.3-8.2) g/dL Albumin (3.5-5.0) g/dL Urine Appearance (Clear) Urine Protein (Negative) Urine Ketones (Negative) Urine Blood (Negative) Urine WBC (0-5) /hpf Amorphous Sediment (None) /hpf Urine Bacteria (None) /hpf Hyaline Casts (0-2) /lpf Urine Mucus (None) /hpf 10/06/19 10/06/19 10/06/19 Range/Units 04:47 05:15 08:36 RBC (3.80-5.40) m/uL Hgb (11.4-16.0) gm/dL MCHC (31.0-37.0) g/dL Neutrophils # (1.3-7.7) k/uL Lymphocytes # (1.0-4.8) k/uL ABG pH (7.35-7.45) ABG pCO2 48 H (35-45) mmHg ABG pO2 189 H (83-108) mmHg ABG HCO3 32 H (21-25) mmol/L ABG Total CO2 33 H (19-24) mmol/L ABG O2 Saturation 99.6 H (94-97) % BUN 19 H (7-17) mg/dL POC Glucose (mg/dL) (75-99) mg/dL Calcium 8.3 L (8.4-10.2) mg/dL AST 50 H (14-36) U/L Troponin I 0.093 H* (0.000-0.034) ng/mL Total Protein 5.3 L (6.3-8.2) g/dL Albumin 2.8 L (3.5-5.0) g/dL Urine Appearance (Clear) Urine Protein (Negative) Urine Ketones (Negative) Urine Blood (Negative) Urine WBC (0-5) /hpf Amorphous Sediment (None) /hpf Urine Bacteria (None) /hpf Hyaline Casts (0-2) /lpf Urine Mucus (None) /hpf 10/06/19 10/06/19 Range/Units 11:31 18:29 RBC (3.80-5.40) m/uL Hgb (11.4-16.0) gm/dL MCHC (31.0-37.0) g/dL Neutrophils # (1.3-7.7) k/uL Lymphocytes # (1.0-4.8) k/uL ABG pH (7.35-7.45) ABG pCO2 (35-45) mmHg ABG pO2 (83-108) mmHg ABG HCO3 (21-25) mmol/L ABG Total CO2 (19-24) mmol/L ABG O2 Saturation (94-97) % BUN (7-17) mg/dL POC Glucose (mg/dL) 117 H 159 H (75-99) mg/dL Calcium (8.4-10.2) mg/dL AST (14-36) U/L Troponin I (0.000-0.034) ng/mL Total Protein (6.3-8.2) g/dL Albumin (3.5-5.0) g/dL Urine Appearance (Clear) Urine Protein (Negative) Urine Ketones (Negative) Urine Blood (Negative) Urine WBC (0-5) /hpf Amorphous Sediment (None) /hpf Urine Bacteria (None) /hpf Hyaline Casts (0-2) /lpf Urine Mucus (None) /hpf Microbiology - Last 24 Hours (Table) 10/06/19 01:35 Gram Stain - Preliminary Sputum Sputum Culture - Preliminary 10/05/19 20:28 Urine Culture - Preliminary Urine,Catheterized Thrombosis Risk Factor Assmnt - Choose All That Apply Each Factor Represents 1 point: Abnormal pulmonary function (COPD), Swollen legs (current) Thrombosis Risk Factor Assessment Total Risk Factor Score: 2 Thrombosis Risk Factor Assessment Level: Low Risk Assessment and Plan (1) Acute respiratory failure with hypoxia and hypercapnia Current Visit: Yes Status: Acute Code(s): J96.01 - ACUTE RESPIRATORY FAILURE WITH HYPOXIA; J96.02 - ACUTE RESPIRATORY FAILURE WITH HYPERCAPNIA SNOMED Code(s): 319724274 (2) Metabolic alkalosis with respiratory acidosis Current Visit: Yes Status: Acute Code(s): E87.4 - MIXED DISORDER OF ACID- BASE BALANCE SNOMED Code(s): 843976009 (3) Demand ischemia Current Visit: Yes Status: Acute Code(s): I24.8 - OTHER FORMS OF ACUTE ISCHEMIC HEART DISEASE SNOMED Code(s): 882364963 (4) COPD exacerbation Current Visit: Yes Status: Acute Code(s): J44.1 - CHRONIC OBSTRUCTIVE PULMONARY DISEASE W (ACUTE) EXACERBATION SNOMED Code(s): 753493537 (5) Elevated troponin Current Visit: Yes Status: Acute Code(s): R79.89 - OTHER SPECIFIED ABNORMAL FINDINGS OF BLOOD CHEMISTRY SNOMED Code(s): 632396901 (6) Severe sepsis Current Visit: No Status: Acute Code(s): A41.9 - SEPSIS, UNSPECIFIED ORGANISM; R65.20 - SEVERE SEPSIS WITHOUT SEPTIC SHOCK SNOMED Code(s): 31197805 Plan: 1. Acute respiratory failure. Pulmonary consult. COVID test pending. Continue rocephin and azithromycin. Continue IV steroids 2. Respiratory acidosis, metabolic alkalosis. Resolving, management per pulmonary 3. Elevated troponin. Cardiology consult. Suspect demand ischemia 4. Atrial fibrillation. Rate controlled currently. continue metoprolol. Hold eliquis and VTE prophylaxis with lovenox
[2019-10-06 23:47] LABS: Glucose,Whole Blood 176 mg/dL (75-99)
[2019-10-07] MEDS: PROPOFOL 1,000 MG in EMPTY BAG 1 BAG IV SCH ×5 (02:25→23:24)
[2019-10-07] MEDS: IPRATROPIUM-ALBUTEROL 3 ML NEB INHALATION SCH ×5 (03:12→19:22)
[2019-10-07] MEDS: methylPREDNISolone SOD SUCCI 125 MG/2 ML VIAL IV SCH ×4 (04:48→23:14)
[2019-10-07 05:05] LABS: ABG Base Excess 5.4 mmol/L; ABG HCO3 30 mmol/L (21-25); ABG Oxygen Saturation 99.4 % (94-97); ABG PCO2 46 mmHg (35-45); ABG PH 7.42 (7.35-7.45); ABG PO2 183 mmHg (83-108); ABG TCO2 31 mmol/L (19-24); Allen Test Performed? Yes
[2019-10-07 05:12] LABS: Basophils % (A) 0 %; Eosinophils % (A) 0 %; HCT 33.9 % (34.0-46.0); HGB 10.4 gm/dL (11.4-16.0); Hypochromasia Marked; Lymphocytes # (A) 0.2 k/uL (1.0-4.8); Lymphocytes % (A) 1 %; MCH 29.1 pg (25.0-35.0); MCHC 30.5 g/dL (31.0-37.0); MCV 95.5 fL (80.0-100.0); Mean Platelet Volume 7.5; Monocytes # (A) 0.5 k/uL (0-1.0); Monocytes % (A) 4 %; Neutrophils # (A) 11.9 k/uL (1.3-7.7); Neutrophils % (A) 94 %; Platelet Count 177 k/uL (150-450); RBC 3.55 m/uL (3.80-5.40); RDW 14.8 % (11.5-15.5); WBC 12.7 k/uL (3.8-10.6)
[2019-10-07 05:51] LABS: Albumin 2.5 g/dL (3.5-5.0); Total Bilirubin 0.4 mg/dL (0.2-1.3); Total Protein 4.9 g/dL (6.3-8.2)
--- NOTE | 2019-10-07 07:21 | XR ---
EXAMINATION TYPE: XR chest 1V portable DATE OF EXAM: 10/07/2019 CLINICAL HISTORY: Difficulty breathing progress study. TECHNIQUE: Single AP portable upright view of the chest is obtained. COMPARISON: Chest x-ray from one day earlier and older studies. CTA chest 2 days ago. FINDINGS: Stable nasogastric tube. Persistent mild cardiomegaly and low lung volumes with elevated r ight hemidiaphragm and patchy bibasilar opacities. Developing perihilar opacities are felt present. N o pneumothorax bilaterally. Osseous structures are intact. Background mild underlying emphysematous c hange noted seen better on CT. IMPRESSION: Background low lung volumes and cardiomegaly with elevated right hemidiaphragm and patchy bibasilar atelectasis and/or infiltrate are all redemonstrated. New mild central alveolar edema felt present. Correlate for CHF exacerbation or fluid overload state.
--- NOTE | 2019-10-07 07:35 | P.PN ---
Subjective Progress Note Date: 10/07/19 Principal diagnosis: right heart failure This is an 7-year-old female patient with a past medical history significant for chronic obstructive pulmonary disease, paroxysmal atrial fibrillation, valvular heart disease with history of mitral valve endocarditis, moderate tricuspid r egurgitation, severe pulmonary hypertension as well as history of diastolic congestive heart failure. We requested to see the patient in consultation for abnormal cardiac enzymes. Currently the patient is intubated and she is on mechanical ventilation. The history was taken from the chart. The patient was brought to the hospital and emergency department with generalized weakness for the last 24 hours. No indication that she didn't have any symptoms of chest pain or chest discomfort but she was experiencing increasing in the shortness of breath. No fever or chills, no feeling of dizziness or lightheadedness, and no loss of consciousness or syncope. The patient was found to be hypoxic and subsequently she was intubated and placed on mechanical ventilation. When she was seen this morning, she was hemodynamically stable and not on any vasopressors. The chest x-ray was reviewed and showed finding consistent mostly with COPD. BNP came in to be slightly elevated. The patient does have bilateral lower extremities edema on examination but her chest examination overalls showed clear breathing sounds bilaterally. The first set of troponin came in to be slightly elevated. The EKG showed sinus tachycardia with diffuse nonspecific ST and T wave abnormalities. The patient had an echocardiogram in 2018 and that revealed normal left ventricular systolic function with mild MR, moderate TR, severe pulmonary hypertension. No indication that the patient didn't have any history of coronary artery disease or coronary revascularization in the past. The patient was seen today, October 062019. She is retaining fluid and the weight has been going up. She still have severe bilateral lower extremities edema. The urine output is low. Hemodynamically the patient is stable. I am g oing to start the patient on Lasix at 40 mg IV twice a day. The chest x-ray was reviewed this morning and showed finding consistent with heart failure. Will follow-up also on the echocardiogram. Objective - Vital Signs Vital signs: Vital Signs Temp 98.1 F 10/07/19 00:00 Pulse 84 10/07/19 07:00 Resp 15 10/07/19 07:00 BP 106/55 10/07/19 07:00 Pulse Ox 98 10/07/19 07:00 Intake & Output 05/10/07/19 10/07/19 18:59 06:59 18:59 Intake Total 977.466 7975.912 117 Output Total 290 97 8 Balance 629.640 7464.912 109 Weight 125.7 kg 130.2 kg Intake: Intake, IV Titration 707.483 6642.912 100 Amount Propofol 1,000 mg In 296.905 173.912 Empty Bag 1 bag @ Titrate IV .Q0M [facility] Rx#: [id number] Sodium Chloride 0.9% 1, 540 1100 100 000 ml @ 100 mls/hr IV . Q10H [facility] Rx#:[id number] Tube Feeding 102 249 17 Output: Urine 290 97 8 Other: Voiding Method Indwelling Catheter Indwelling Catheter - Constitutional General appearance: Present: no acute distress - Respiratory Respiratory: bilateral: diminished - Cardiovascular Heart sounds: normal: S1, S2 Abnormal Heart Sounds: Present: systolic murmur - Labs CBC & Chem 7: 10/07/19 04:30 10/07/19 04:30 Labs: Abnormal Lab Results - Last 24 Hours (Table) 10/06/19 10/06/19 10/06/19 Range/Units 08:36 11:31 18:29 WBC (3.8-10.6) k/uL RBC (3.80-5.40) m/uL Hgb (11.4-16.0) gm/dL Hct (34.0-46.0) % MCHC (31.0-37.0) g/dL Neutrophils # (1.3-7.7) k/uL Lymphocytes # (1.0-4.8) k/uL ABG pCO2 (35-45) mmHg ABG pO2 (83-108) mmHg ABG HCO3 (21-25) mmol/L ABG Total CO2 (19-24) mmol/L ABG O2 Saturation (94-97) % Sodium (137-145) mmol/L BUN (7-17) mg/dL Glucose (74-99) mg/dL POC Glucose (mg/dL) 117 H 159 H (75-99) mg/dL Calcium (8.4-10.2) mg/dL Troponin I 0.093 H* (0.000-0.034) ng/mL Total Protein (6.3-8.2) g/dL Albumin (3.5-5.0) g/dL 10/06/19 10/07/19 10/07/19 Range/Units 23:45 04:30 04:30 WBC 12.7 H (3.8-10.6) k/uL RBC 3.55 L (3.80-5.40) m/uL Hgb 10.4 L (11.4-16.0) gm/dL Hct 33.9 L (34.0-46.0) % MCHC 30.5 L (31.0-37.0) g/dL Neutrophils # 11.9 H (1.3-7.7) k/uL Lymphocytes # 0.2 L (1.0-4.8) k/uL ABG pCO2 (35-45) mmHg ABG pO2 (83-108) mmHg ABG HCO3 (21-25) mmol/L ABG Total CO2 (19-24) mmol/L ABG O2 Saturation (94-97) % Sodium 135 L (137-145) mmol/L BUN 30 H (7-17) mg/dL Glucose 188 H (74-99) mg/dL POC Glucose (mg/dL) 176 H (75-99) mg/dL Calcium 8.0 L (8.4-10.2) mg/dL Troponin I (0.000-0.034) ng/mL Total Protein 4.9 L (6.3-8.2) g/dL Albumin 2.5 L (3.5-5.0) g/dL 10/07/19 Range/Units 04:59 WBC (3.8-10.6) k/uL RBC (3.80-5.40) m/uL Hgb (11.4-16.0) gm/dL Hct (34.0-46.0) % MCHC (31.0-37.0) g/dL Neutrophils # (1.3-7.7) k/uL Lymphocytes # (1.0-4.8) k/uL ABG pCO2 46 H (35-45) mmHg ABG pO2 183 H (83-108) mmHg ABG HCO3 30 H (21-25) mmol/L ABG Total CO2 31 H (19-24) mmol/L ABG O2 Saturation 99.4 H (94-97) % Sodium (137-145) mmol/L BUN (7-17) mg/dL Glucose (74-99) mg/dL POC Glucose (mg/dL) (75-99) mg/dL Calcium (8.4-10.2) mg/dL Troponin I (0.000-0.034) ng/mL Total Protein (6.3-8.2) g/dL Albumin (3.5-5.0) g/dL Microbiology - Last 24 Hours (Table) 10/05/19 23:16 Blood Culture - Preliminary Blood No Growth after 24 hours 10/06/19 01:35 Gram Stain - Preliminary Sputum Sputum Culture - Preliminary 10/05/19 20:28 Urine Culture - Preliminary Urine,Catheterized Assessment and Plan Assessment: assessment #1 acute hypoxic respiratory failure #2 exacerbation #3 a component of right heart failure #4 valvular heart disease #5 mildly abnormal troponin #6 multiple comorbid conditions plan #1 continue the current medical regimen #2 start the patient on Lasix 40 mg IV twice a day #3 continue monitor the kidney function and electrolytes #4 follow-up on the echocardiogram
[2019-10-07] MEDS: FORMOTEROL FUMARATE 20 MCG/2 ML NEBU INHALATION SCH ×2 (08:07→19:22)
[2019-10-07] MEDS: BUDESONIDE 1 MG/2 ML NEBU INHALATION SCH ×2 (08:07→19:22)
[2019-10-07] MEDS ORDERED: SODIUM CHLORIDE 0.9% 1,000 ML IV ONE (09:10)
[2019-10-07] MEDS: SODIUM CHLORIDE 0.9% 1,000 ML IV SCH ×2 (09:43→21:05)
[2019-10-07] MEDS: CHLORHEXIDINE GLUCONATE 15 ML CUP MUCOUS MEM SCH ×2 (09:45→21:06)
[2019-10-07] MEDS: ENOXAPARIN 40 MG/0.4 ML SYRINGE SQ SCH (09:45)
[2019-10-07] MEDS: FUROSEMIDE 10 MG/ML 4 ML VIAL IV SCH ×2 (09:46→21:06)
[2019-10-07] MEDS: AZITHROMYCIN 500 MG TAB NG-TUBE SCH (09:46)
[2019-10-07] MEDS: ASPIRIN 81 MG PO SCH (09:46)
[2019-10-07] MEDS: METOPROLOL TARTRATE 12.5 MG TAB PO SCH ×2 (09:46→21:08)
--- NOTE | 2019-10-07 11:08 | PN ---
PROGRESS NOTE PULMONARY/CRITICAL CARE PROGRESS NOTE: DATE OF SERVICE: 10/07/2019 CRITICAL CARE TIME: 31 minutes. This is an 79-year-old female who was seen initially in the emergency department on October [address] Dimas. She has a history of atrial fibrillation, asthma, heart failure, COPD, diabetes mellitus, hyperlipidemia, and hypertension. She apparently presented to the emergency department with profound weakness. Currently, the patient remains on the mechanical ventilator. She was intubated for acute respiratory failure and somnolence in the emergency department by Dr. Bautista. Her vent settings include the volume assist- control mode rate of 14, tidal volume 400, FiO2 pf 50% to be dropped to 35% and PEEP of 5. Blood gases showed a pO2 of 183, pCO2 of 46 and a pH of 7.42. She remains on propofol at 35 mcg/kg per minute, 0.9 at 100 mL an hour and Vital high-protein at 17 with a goal of 17 cc an hour. The patient's microbiologic studies have been negative. We are going to do a daily interruption of sedation and spontaneous breathing trial today on PSV 5, CPAP of 5. We are going to give her a L of saline for low urine output. She is a DNR. Current vital signs are reviewed. Temperature is 98.1, heart rate 87, respiratory rate 15, blood pressure 106/55, mean 72, saturations 98%. Appears in no acute distress. Currently sedated. HEENT: Examination is grossly unremarkable. She has an orally placed endotracheal tube and NG tube. NECK: Supple, full range of motion. No adenopathy. Neck veins are flat. CARDIOVASCULAR: Examination reveals irregular rhythm and rate. Heart rate 89. She is in atrial fibrillation. There is a harsh systolic murmur consistent with aortic stenosis. Pulmonary examination reveals diffuse coarse rhonchi. Some crackles. No wheezes. Breath sounds equal. ABDOMEN: Soft bowel sounds are noted. EXTREMITIES: Intact. She has some chronic venostasis changes and profound edema and erythema with the significant wrinkling of the skin of the both bilateral lower extremities. Skin otherwise without rash except for some areas of ecchymoses. NEUROLOGIC: Examination cannot be assessed because she is currently sedated. LABS: Reviewed. White count 12.7, hemoglobin 10.4, hematocrit 33.9, platelet count 177,000, blood gases show pO2 of 183, pCO2 of 46 and a pH of 7.42. The FiO2 is dropped from 50% to 35%. Sodium 135, potassium 4, chloride 104, CO2 is 26, anion gap is 5. BUN and creatinine were 30 and 0.83. Microbiology thus far is negative. Chest x-ray from 10/06 in the morning shows low lung volumes, right hemidiaphragm elevation, and diffuse bilateral infiltrates and/or atelectasis. MEDICATIONS: Reviewed as they were yesterday. She remains on Zithromax and Rocephin. Other medications are appropriate including Pulmicort, formoterol, Solu-Medrol, updrafts, and Lasix. ASSESSMENT: 1. Acute hypoxemic respiratory failure requiring intubation and mechanical ventilation on October 04, of unclear etiology. Possibilities include heart failure and/or atrial fibrillation/valvular heart disease and possible bilateral pneumonia. 2. No evidence of pulmonary embolism on CT angiogram. 3. Rule out bilateral community-acquired pneumonia. 4. Possible urinary tract infection. 5. History of atrial fibrillation/flutter. 6. History of chronic bronchial asthma. 7. Congestive heart failure. 8. Diabetes mellitus by history. 9. Hyperlipidemia. 10.Valvular heart disease, probably mildly severe aortic stenosis. 11.Hypertension. 12.History of pneumonia. 13.Sleep apnea syndrome. 14.Hypothyroidism. 15.Multiple other medical problems and comorbidities. PLAN: The patient's FiO2 was dropped to 35%. We are going to do a daily interruption of sedation. She remains on good antibiotics. The patient is made a DNR by the family. She is being nourished properly. Will continue to follow her. Prognosis is guarded. If she does well, she may be a candidate for a trial of extubation. Will continue to follow. Prognosis is guarded. CRITICAL CARE TIME: 31 minutes. MMODL / IJN: [id number] /
[2019-10-07 11:56] LABS: Glucose,Whole Blood 182 mg/dL (75-99)
[2019-10-07] MEDS: INSULIN ASPART (NovoLOG) 100 UNIT/ML VIAL SQ SCH ×3 (12:45→23:22)
--- NOTE | 2019-10-07 15:02 | EEG ---
ELECTROENCEPHALOGRAM REPORT DATE OF SERVICE: 10/07/2019 HISTORY: This is an inpatient EEG performed on an 79-year-old female. The reason for this study has not been indicated. No prior EEGs are available for comparison. TECHNICAL REPORT: This is an inpatient EEG performed on the [facility] [employer] EEG monitor with electrodes placed according to the International 10-20 system and a single EKG channel. Simultaneous video EEG monitoring was performed. This EEG was reviewed in both longitudinal bipolar, average referential and transverse montages. The recording begins with generalized slowing. Sixty cycle nodule is on due to the excessive 60 cycle artifact over the recording particular contaminating the right and left temporal occipital electrode leads. This study consists of a moderate amplitude, general slowing of the background, consistent with possibly drowsiness. Rare surface positive sharp waves were noted throughout the study lateralize to the right frontal central head region. This was noted in the bipolar montage and when reviewed in the common average referential montage, this appears as a negative field over the entire right hemisphere. At 09:12:21 repetitive sharp waves are noted over the right frontal head region. This is maximum negativity at F4 in common average montage. The overall background is slow between 5-6 Hz. Photic stimulation was performed at various flash frequencies and failed to elicit a consistent driving response. Frequently during photic stimulation, increased muscle artifact was prominent. IMPRESSION: This is an abnormal, primarily drowsy EEG. Lateralized epileptiform activity to the right hemisphere, particularly at the right frontal central head region. The overall background appears slow, which could be consistent with either drowsiness or an encephalopathic state. A verbal report of the study was given to the nurse at 2:26 pm. RECOMMENDATIONS: Serial EEGs, neuro imaging studies and if clinically indicated, a more prolonged overnight study could provide additional information. MMODL / IJN: [id number] /
[2019-10-07 18:04] LABS: Glucose,Whole Blood 158 mg/dL (75-99)
--- NOTE | 2019-10-07 21:20 | ECHOF ---
Referral Reason:chf MEASUREMENTS -------- HEIGHT: 160.0 cm WEIGHT: 125.6 kg BP: 93/47 IVSd: 1.8 cm (0.6 - 1.1) LVIDd: 3.3 cm (3.9 - 5.3) LVPWd: 1.9 cm (0.6 - 1.1) IVSs: 2.1 cm LVIDs: 2.3 cm LVPWs: 1.8 cm RVIDd: 4.2 cm (< 3.3) LAESV Index (A-L): 53.31 ml/m Ao Diam: 3.2 cm (2.0 - 3.7) AV Cusp: 1.5 cm (1.5 - 2.6) MV E Viet: 1.55 m/s MV DecT: 353 ms MV A Viet: 1.62 m/s MV E/A Ratio: 0.96 AV maxP.84 mmHg AV meanP.38 mmHg AR PHT: 382 ms RAP: 20.00 mmHg RVSP: 82.87 mmHg FINDINGS -------- Sinus rhythm. This was a technically adequate study. Pt. on a vent. The left ventricular size is normal. There is severe concentric left ventricular hypertrophy. Ove rall left ventricular systolic function is normal with, an EF between 55 - 60 %. Left ventricular f illimg pressure cannot be estimated due to severe mitral annular calcification. The right ventricle is moderately enlarged. LA is severely dilated >40 ml/m2 The right atrium is moderately enlarged. Interatrial and interventricular septum intact. There is mild aortic regurgitation. There is moderate aortic stenosis present. Peak/mean gradient across the Aortic Valve is 30.84mmHg / 16.38mmHg. Severe mitral annular calcification present. Dducivup-xk-tbwgin mitral regurgitation is present. Idcu-zs-qjbthrvm mitral stenosis , with a MVA of 2.2cm (by PHT) Severe tricuspid regurgitation present. There is severe pulmonary hypertension. The right ventric ular systolic pressure, as measured by Doppler, is 82.87mmHg. There is no pulmonic regurgitation present. The aortic root size is normal. The inferior vena cava is dilated with no significant inspiratory collapse which is consistent estima radha right atrial pressure of >20 mmHg. There is no pericardial effusion. CONCLUSIONS -------- 1. Sinus rhythm. 2. This was a technically adequate study. 3. Pt. on a vent. 4. The left ventricular size is normal. 5. There is severe concentric left ventricular hypertrophy. 6. Overall left ventricular systolic function is normal with, an EF between 55 - 60 %. 7. Left ventricular fillimg pressure cannot be estimated due to severe mitral annular calcification. 8. The right ventricle is moderately enlarged. 9. LA is severely dilated >40 ml/m2 10. The right atrium is moderately enlarged. 11. Interatrial and interventricular septum intact. 12. There is mild aortic regurgitation. 13. There is moderate aortic stenosis present. 14. Peak/mean gradient across the Aortic Valve is 30.84mmHg / 16.38mmHg. 15. Severe mitral annular calcification present. 16. Btqwivef-ps-tacbkn mitral regurgitation is present. 17. Ikve-oj-jgpujhln mitral stenosis. 18. , with a MVA of 2.2cm (by PHT) 19. Severe tricuspid regurgitation present. 20. There is severe pulmonary hypertension. 21. The right ventricular systolic pressure, as measured by Doppler, is 82.87mmHg. 22. There is no pulmonic regurgitation present. 23. The aortic root size is normal. 24. The inferior vena cava is dilated with no significant inspiratory collapse which is consistent es timated right atrial pressure of >20 mmHg. 25. There is no pericardial effusion. PALLETIZER OPERATOR: Rosemary Townsend RDCS
--- NOTE | 2019-10-07 22:20 | P.PN ---
Subjective Progress Note Date: 10/07/19 She is intubated and sedated today, her FiO2 is 35% and attempting to wean vent. Urine culture growing gram negative bacilli, CXR with bibasilar infiltrates. Objective - Vital Signs Vital signs: Vital Signs Temp 97.1 F L 10/07/19 20:00 Pulse 72 10/07/19 22:00 Resp 14 10/07/19 22:00 BP 116/63 10/07/19 22:00 Pulse Ox 98 10/07/19 22:00 Intake & Output 10/07/19 10/07/19 10/08/19 06:59 18:59 06:59 Intake Total 6636.076 3414.445 385 Output Total 97 833 315 Balance 8855.238 8642.445 70 Weight 130.2 kg Intake: IV 2050 300 Sodium Chloride 0.9% 1, 1000 300 000 ml @ 100 mls/hr IV . Q10H [facility] Rx#:[id number] Sodium Chloride 0.9% 1, 1000 000 ml @ 999 mls/hr IV . Q1H1M [facility] Rx#:[id number] cefTRIAXone 1 gm In 50 Sodium Chloride 0.9% 50 ml @ 100 mls/hr IVPB Q24HR [facility] Rx#:[id number] Intake, IV Titration 1273.912 278.445 Amount Propofol 1,000 mg In 173.912 178.445 Empty Bag 1 bag @ Titrate IV .Q0M [facility] Rx#: [id number] Sodium Chloride 0.9% 1, 1100 100 000 ml @ 100 mls/hr IV . Q10H [facility] Rx#:[id number] Tube Feeding 249 204 85 Other 60 Output: Urine 97 833 315 Other: Voiding Method Indwelling Catheter Indwelling Catheter Indwelling Catheter - Exam General: elderly female, intubated sedated. Vitals reviewed Lungs: rhonchi, no rales CV: Regular rate and rhythm, no murmur. Peripheral pulses 1+ Abdomen: soft, nondistended, no organomegaly Skin: warm and dry. Bilateral lower extremity erythema and wound - Labs CBC & Chem 7: 10/07/19 04:30 10/07/19 04:30 Labs: Abnormal Lab Results - Last 24 Hours (Table) 10/06/19 10/07/19 10/07/19 Range/Units 23:45 04:30 04:30 WBC 12.7 H (3.8-10.6) k/uL RBC 3.55 L (3.80-5.40) m/uL Hgb 10.4 L (11.4-16.0) gm/dL Hct 33.9 L (34.0-46.0) % MCHC 30.5 L (31.0-37.0) g/dL Neutrophils # 11.9 H (1.3-7.7) k/uL Lymphocytes # 0.2 L (1.0-4.8) k/uL ABG pCO2 (35-45) mmHg ABG pO2 (83-108) mmHg ABG HCO3 (21-25) mmol/L ABG Total CO2 (19-24) mmol/L ABG O2 Saturation (94-97) % Sodium 135 L (137-145) mmol/L BUN 30 H (7-17) mg/dL Glucose 188 H (74-99) mg/dL POC Glucose (mg/dL) 176 H (75-99) mg/dL Calcium 8.0 L (8.4-10.2) mg/dL Total Protein 4.9 L (6.3-8.2) g/dL Albumin 2.5 L (3.5-5.0) g/dL 10/07/19 10/07/19 10/07/19 Range/Units 04:59 11:54 18:03 WBC (3.8-10.6) k/uL RBC (3.80-5.40) m/uL Hgb (11.4-16.0) gm/dL Hct (34.0-46.0) % MCHC (31.0-37.0) g/dL Neutrophils # (1.3-7.7) k/uL Lymphocytes # (1.0-4.8) k/uL ABG pCO2 46 H (35-45) mmHg ABG pO2 183 H (83-108) mmHg ABG HCO3 30 H (21-25) mmol/L ABG Total CO2 31 H (19-24) mmol/L ABG O2 Saturation 99.4 H (94-97) % Sodium (137-145) mmol/L BUN (7-17) mg/dL Glucose (74-99) mg/dL POC Glucose (mg/dL) 182 H 158 H (75-99) mg/dL Calcium (8.4-10.2) mg/dL Total Protein (6.3-8.2) g/dL Albumin (3.5-5.0) g/dL Microbiology - Last 24 Hours (Table) 10/05/19 20:28 Urine Culture - Preliminary Urine,Catheterized Gram Neg Bacilli 10/05/19 23:16 Blood Culture - Preliminary Blood No Growth after 24 hours Assessment and Plan (1) Acute respiratory failure with hypoxia and hypercapnia Current Visit: Yes Status: Acute Code(s): J96.01 - ACUTE RESPIRATORY FAILURE WITH HYPOXIA; J96.02 - ACUTE RESPIRATORY FAILURE WITH HYPERCAPNIA SNOMED Code(s): 852014150 (2) Metabolic alkalosis with respiratory acidosis Current Visit: Yes Status: Acute Code(s): E87.4 - MIXED DISORDER OF ACID- BASE BALANCE SNOMED Code(s): 342198826 (3) Demand ischemia Current Visit: Yes Status: Acute Code(s): I24.8 - OTHER FORMS OF ACUTE ISCHEMIC HEART DISEASE SNOMED Code(s): 038638560 (4) COPD exacerbation Current Visit: Yes Status: Acute Code(s): J44.1 - CHRONIC OBSTRUCTIVE PULMONARY DISEASE W (ACUTE) EXACERBATION SNOMED Code(s): 881919756 (5) Elevated troponin Current Visit: Yes Status: Acute Code(s): R79.89 - OTHER SPECIFIED ABNORMAL FINDINGS OF BLOOD CHEMISTRY SNOMED Code(s): 514643823 (6) Severe sepsis Current Visit: No Status: Acute Code(s): A41.9 - SEPSIS, UNSPECIFIED ORGANISM; R65.20 - SEVERE SEPSIS WITHOUT SEPTIC SHOCK SNOMED Code(s): 90085343 Plan: 1. Acute respiratory failure. Pulmonary consult. COVID test pending. Continue rocephin and azithromycin. Continue IV steroids 2. Respiratory acidosis, metabolic alkalosis. Resolving, management per pulmonary 3. Elevated troponin. Cardiology consult. Suspect demand ischemia 4. Atrial fibrillation. Rate controlled currently. continue metoprolol. Hold eliquis and VTE prophylaxis with lovenox 5. Bilateral lower extremity cellulitis, stasis ulcer. Local wound care. Continue IV abx
[2019-10-07 23:21] LABS: Glucose,Whole Blood 174 mg/dL (75-99)
[2019-10-08] MEDS: IPRATROPIUM-ALBUTEROL 3 ML NEB INHALATION SCH ×7 (00:20→19:59)
[2019-10-08] MEDS: PROPOFOL 1,000 MG in EMPTY BAG 1 BAG IV SCH ×2 (04:19→08:14)
[2019-10-08] MEDS: methylPREDNISolone SOD SUCCI 125 MG/2 ML VIAL IV SCH (04:21)
[2019-10-08 05:28] LABS: ABG Base Excess 6.6 mmol/L; ABG HCO3 31 mmol/L (21-25); ABG Oxygen Saturation 97.7 % (94-97); ABG PCO2 51 mmHg (35-45); ABG PO2 96 mmHg (83-108); ABG TCO2 33 mmol/L (19-24); Allen Test Performed? Yes
[2019-10-08 05:51] LABS: Basophils % (A) 0 %; Eosinophils # (A) 0.1 k/uL (0-0.7); Eosinophils % (A) 0 %; HCT 38.7 % (34.0-46.0); HGB 11.7 gm/dL (11.4-16.0); Hypochromasia Marked; Lymphocytes # (A) 0.3 k/uL (1.0-4.8); Lymphocytes % (A) 1 %; MCH 28.6 pg (25.0-35.0); MCHC 30.1 g/dL (31.0-37.0); MCV 94.9 fL (80.0-100.0); Mean Platelet Volume 7.7; Monocytes # (A) 0.5 k/uL (0-1.0); Monocytes % (A) 3 %; Neutrophils # (A) 19.6 k/uL (1.3-7.7); Neutrophils % (A) 96 %; Platelet Count 214 k/uL (150-450); RBC 4.08 m/uL (3.80-5.40); RDW 14.9 % (11.5-15.5); WBC 20.6 k/uL (3.8-10.6)
[2019-10-08 06:04] LABS: Calcium 8.3 mg/dL (8.4-10.2); Potassium 3.7 mmol/L (3.5-5.1); Total Bilirubin 0.5 mg/dL (0.2-1.3); Total Protein 5.7 g/dL (6.3-8.2)
[2019-10-08 06:28] LABS: Glucose,Whole Blood 159 mg/dL (75-99)
[2019-10-08] MEDS: INSULIN ASPART (NovoLOG) 100 UNIT/ML VIAL SQ SCH ×3 (06:31→18:03)
[2019-10-08] MEDS: SODIUM CHLORIDE 0.9% 1,000 ML IV SCH ×2 (06:32→16:48)
[2019-10-08] MEDS: BUDESONIDE 1 MG/2 ML NEBU INHALATION SCH ×2 (07:19→19:34)
[2019-10-08] MEDS: FORMOTEROL FUMARATE 20 MCG/2 ML NEBU INHALATION SCH ×2 (07:20→19:34)
--- NOTE | 2019-10-08 07:46 | XR ---
EXAMINATION TYPE: XR chest 1V portable DATE OF EXAM: 10/08/2019 COMPARISON: 10/07/2019 HISTORY: Tube placement TECHNIQUE: Single frontal view of the chest is obtained. FINDINGS: Endotracheal tube appears cephalad in position located approximately 6.6 cm from the alicia a. Cardiomediastinal silhouette is enlarged. Right hemidiaphragm elevation is seen. Bilateral trace p leural effusions and bibasilar atelectasis are similar to the prior. Dextroscoliosis of the spine and moderate degenerative change noted. IMPRESSION: Stable exam from the prior with bibasilar airspace disease and trace pleural effusions a s well as chronic right hemidiaphragm elevation. Endotracheal tube is cephalad in position and could be advanced approximately 3 cm for more optimal placement.
[2019-10-08] MEDS: FUROSEMIDE 10 MG/ML 4 ML VIAL IV SCH ×2 (08:54→20:37)
[2019-10-08] MEDS: ASPIRIN 81 MG PO SCH (08:54)
[2019-10-08] MEDS: METOPROLOL TARTRATE 12.5 MG TAB PO SCH ×2 (08:54→20:37)
[2019-10-08] MEDS: ENOXAPARIN 40 MG/0.4 ML SYRINGE SQ SCH (08:54)
[2019-10-08] MEDS: CHLORHEXIDINE GLUCONATE 15 ML CUP MUCOUS MEM SCH (08:55)
[2019-10-08] MEDS: AZITHROMYCIN 500 MG TAB NG-TUBE SCH (08:55)
--- NOTE | 2019-10-08 09:12 | P.PN ---
Subjective Progress Note Date: 10/08/19 Principal diagnosis: right heart failure This is an 7-year-old female patient with a past medical history significant for chronic obstructive pulmonary disease, paroxysmal atrial fibrillation, valvular heart disease with history of mitral valve endocarditis, moderate tricuspid r egurgitation, severe pulmonary hypertension as well as history of diastolic congestive heart failure. We requested to see the patient in consultation for abnormal cardiac enzymes. Currently the patient is intubated and she is on mechanical ventilation. The history was taken from the chart. The patient was brought to the hospital and emergency department with generalized weakness for the last 24 hours. No indication that she didn't have any symptoms of chest pain or chest discomfort but she was experiencing increasing in the shortness of breath. No fever or chills, no feeling of dizziness or lightheadedness, and no loss of consciousness or syncope. The patient was found to be hypoxic and subsequently she was intubated and placed on mechanical ventilation. When she was seen this morning, she was hemodynamically stable and not on any vasopressors. The chest x-ray was reviewed and showed finding consistent mostly with COPD. BNP came in to be slightly elevated. The patient does have bilateral lower extremities edema on examination but her chest examination overalls showed clear breathing sounds bilaterally. The first set of troponin came in to be slightly elevated. The EKG showed sinus tachycardia with diffuse nonspecific ST and T wave abnormalities. The patient had an echocardiogram in 2018 and that revealed normal left ventricular systolic function with mild MR, moderate TR, severe pulmonary hypertension. No indication that the patient didn't have any history of coronary artery disease or coronary revascularization in the past. The patient was seen today, October 072019.The patient urine output is definitely better after she was started on Lasix yesterday. WBC has been increasing and there is possible pneumonia as well as UTI. Hemodynamically she continues to be stable and not requiring any vasopressors at this point. We'll continue follow-up with her and continue monitor the kidney function and electrolytes as well as chest x-ray and continue following up with the echocardiogram.please note that the echo showed normal left ventricular systolic function was evidence of moderate to severe mitral regurgitation and mild aortic stenosis. Objective - Vital Signs Vital signs: Vital Signs Temp 97.9 F 10/08/19 08:00 Pulse 118 H 10/08/19 09:00 Resp 22 10/08/19 09:00 BP 157/77 10/08/19 09:00 Pulse Ox 95 10/08/19 09:00 Intake & Output 10/07/19 10/08/19 10/08/19 18:59 06:59 18:59 Intake Total 2592.445 1514.818 445.791 Output Total 833 1505 95 Balance 1759.445 9.818 350.791 Weight 128.6 kg Intake: IV 2049 1100 210 Sodium Chloride 0.9% 1, 1000 1100 210 000 ml @ 100 mls/hr IV . Q10H [facility] Rx#:[id number] Sodium Chloride 0.9% 1, 1000 000 ml @ 999 mls/hr IV . Q1H1M [facility] Rx#:[id number] cefTRIAXone 1 gm In 50 Sodium Chloride 0.9% 50 ml @ 100 mls/hr IVPB Q24HR [facility] Rx#:[id number] Intake, IV Titration 278.445 176.818 141.791 Amount Propofol 1,000 mg In 178.445 176.818 91.791 Empty Bag 1 bag @ Titrate IV .Q0M [facility] Rx#: [id number] Sodium Chloride 0.9% 1, 100 000 ml @ 100 mls/hr IV . Q10H [facility] Rx#:[id number] cefTRIAXone 1 gm In 50 Sodium Chloride 0.9% 50 ml @ 100 mls/hr IVPB Q24HR [facility] Rx#:[id number] Tube Feeding 204 238 34 Other 60 60 Output: Urine 833 1505 95 Other: Voiding Method Indwelling Catheter Indwelling Catheter - Constitutional General appearance: Present: no acute distress - Respiratory Respiratory: bilateral: diminished - Cardiovascular Heart sounds: normal: S1, S2 Abnormal Heart Sounds: Present: systolic murmur - Labs CBC & Chem 7: 10/08/19 05:01 10/08/19 05:01 Labs: Abnormal Lab Results - Last 24 Hours (Table) 10/07/19 10/07/19 10/07/19 Range/Units 11:54 18:03 23:19 WBC (3.8-10.6) k/uL MCHC (31.0-37.0) g/dL Neutrophils # (1.3-7.7) k/uL Lymphocytes # (1.0-4.8) k/uL ABG pCO2 (35-45) mmHg ABG HCO3 (21-25) mmol/L ABG Total CO2 (19-24) mmol/L ABG O2 Saturation (94-97) % BUN (7-17) mg/dL Glucose (74-99) mg/dL POC Glucose (mg/dL) 182 H 158 H 174 H (75-99) mg/dL Calcium (8.4-10.2) mg/dL Total Protein (6.3-8.2) g/dL Albumin (3.5-5.0) g/dL 10/08/19 10/08/19 10/08/19 Range/Units 05:01 05:01 05:24 WBC 20.6 H (3.8-10.6) k/uL MCHC 30.1 L (31.0-37.0) g/dL Neutrophils # 19.6 H (1.3-7.7) k/uL Lymphocytes # 0.3 L (1.0-4.8) k/uL ABG pCO2 51 H (35-45) mmHg ABG HCO3 31 H (21-25) mmol/L ABG Total CO2 33 H (19-24) mmol/L ABG O2 Saturation 97.7 H (94-97) % BUN 36 H (7-17) mg/dL Glucose 152 H (74-99) mg/dL POC Glucose (mg/dL) (75-99) mg/dL Calcium 8.3 L (8.4-10.2) mg/dL Total Protein 5.7 L (6.3-8.2) g/dL Albumin 3.0 L (3.5-5.0) g/dL 10/08/19 Range/Units 06:26 WBC (3.8-10.6) k/uL MCHC (31.0-37.0) g/dL Neutrophils # (1.3-7.7) k/uL Lymphocytes # (1.0-4.8) k/uL ABG pCO2 (35-45) mmHg ABG HCO3 (21-25) mmol/L ABG Total CO2 (19-24) mmol/L ABG O2 Saturation (94-97) % BUN (7-17) mg/dL Glucose (74-99) mg/dL POC Glucose (mg/dL) 159 H (75-99) mg/dL Calcium (8.4-10.2) mg/dL Total Protein (6.3-8.2) g/dL Albumin (3.5-5.0) g/dL Microbiology - Last 24 Hours (Table) 10/05/19 23:16 Blood Culture - Preliminary Blood No Growth after 48 hours 10/05/19 20:28 Urine Culture - Preliminary Urine,Catheterized Gram Neg Bacilli Assessment and Plan Assessment: assessment #1 acute hypoxic respiratory failure #2 congestive heart failure exacerbation related to diastolic dysfunction #3 a component of right heart failure #4 valvular heart disease #5 mildly abnormal troponin #6 multiple comorbid conditions plan #1 continue the current medical regimen #2 continue IV Lasix #3 continue monitor the kidney function and electrolytes #4 the echo was reviewed.
--- NOTE | 2019-10-08 10:19 | PN ---
PROGRESS NOTE PULMONARY/CRITICAL CARE PROGRESS NOTE: DATE OF SERVICE: 10/08/2019 CRITICAL CARE TIME: 31 minutes. This is an 79-year-old female who was initially seen in the emergency department on October [address] Dimas. She has a history of atrial fibrillation, asthma, heart failure, COPD, diabetes mellitus, hyperlipidemia, and hypertension. She apparently presented with profound weakness. She developed acute respiratory failure with hypoxemia and somnolence and therefore was intubated in the emergency room by Dr. Dmias. Currently, the patient remains on the ventilator. Vent settings are the volume assist-control mode rate of 14, tidal volume 400, FiO2 of 35%, PEEP of 5. Blood gases are excellent with a pO2 of 96, pCO2 of 15, and pH of 7.40. These blood gases are consistent with a mixed acid-base disturbance including respiratory acidosis and metabolic alkalosis. The patient remains on propofol at 30 mcg/kg per minute, a 0.9 IV at 100, which is going to be turned down to KVO and Vital high-protein at 17 mL an hour, which is goal. The plan after seeing her today was to continue treating her for the gram-negative bacilli in her urine, cut her Solu-Medrol down from 60 q.6 to 40 q.8h, do a daily interruption of sedation with a spontaneous breathing trial, using pressor support of 5 and CPAP of 5. Anyway, that is that the plan for the day. Yesterday, the patient did poorly. Her weaning parameters were very borderline. Hence, we chose not to extubate her. The patient is a DNR. PHYSICAL EXAMINATION: VITAL SIGNS: Current vital signs are reviewed temperature is 97.9 heart rate 118, respiratory rate 22, blood pressure 157/77 mean 103. She is on the breathing machine with saturations of 95%. Appears in no acute distress. HEENT: Examination is grossly unremarkable. There is an orally placed endotracheal tube and NG tube. NECK: Supple. Full range of motion. No adenopathy. Neck veins are flat. CARDIOVASCULAR: Examination reveals regular rhythm rate. Heart rate 84 beats per minute. S1, S2 normal. Heart sounds distant. LUNGS: Sounds are relatively clear. A few scattered rhonchi. Breath sounds equal bilaterally. No wheezes. ABDOMEN: Soft, bowel sounds are heard. Extremities reveal legs are wrapped. They are quite erythematous and hyperemic. There is some chronic venous stasis changes as well. SKIN: Without rash otherwise. NEUROLOGIC: Examination is difficult to assess given the fact she is on propofol. LABS: Reviewed. White count 20.6, hemoglobin 11.7, hematocrit 38.7, platelet count is 214,000. Sodium 141, potassium 3.7, chloride 105 CO2 is 29, anion gap is 7. BUN and creatinine were 36 and 0.9. Microbiology is positive for Gram-negative bacilli, yet to be identified in the urine. A chest x-ray from today October 07 shows bibasilar airspace disease and small effusions. There is also right hemidiaphragm elevation. MEDICATIONS: Reviewed. Currently, she is on aspirin, Zithromax, Pulmicort, Restoril, ceftriaxone, chlorhexidine, Lovenox, formoterol, Lasix IV, insulin DuoNeb, Solu-Medrol, metoprolol, Narcan, propofol, silver sulfadiazine cream, and saline IV. ASSESSMENT: 1. Acute hypoxemic respiratory failure requiring intubation and mechanical ventilation on October 04, of unclear etiology. Possibilities include either heart failure and/or atrial fibrillation/valvular heart disease, and possible bilateral pneumonia. 2. No evidence of pulmonary embolism on CT angiogram. 3. Rule out bilateral community-acquired pneumonia. 4. Possible urinary tract infection. 5. History of atrial fibrillation/flutter. 6. History of chronic bronchial asthma. 7. CHF. 8. Diabetes mellitus by history. 9. Hyperlipidemia. 10.Valvular heart disease, likely reflecting mild to moderate aortic stenosis. 11.Hypertension by history. 12.History of pneumonia. 13.Sleep apnea syndrome. 14.Hypothyroidism. 15.Multiple other medical problems and comorbidities. PLAN: The patient's gas exchange is good. She appears to be a CO2 retainer, suggesting that her COPD is quite severe. She is currently on propofol at 30 mcg/kg per minute. Will change the IV of saline from 100 mL an hour just to KVO. She will continue tube feeds. The Solu-Medrol has dropped down from 60 q.6 to 40 q.8. We will do a daily interruption of sedation and a spontaneous breathing trial. We currently are treating her for a gram-negative bacilli in the urine. Additional recommendations and suggestions are forthcoming. Prognosis is guarded. CRITICAL CARE TIME: 31 minutes. MMODL / IJN: [id number] /
[2019-10-08 12:23] LABS: Glucose,Whole Blood 137 mg/dL (75-99)
--- NOTE | 2019-10-08 13:23 | P.PN ---
Subjective Progress Note Date: 10/08/19 10/07/19 She is intubated and sedated today, her FiO2 is 35% and attempting to wean vent. Urine culture growing gram negative bacilli, CXR with bibasilar infiltrates. 10/08/2019 recently self extubated, maintaining O2 sats in the high 90s on 4 L nasal cannula. Chest x-ray reporting stable bibasilar airspace disease, trace pleural effusions, chronic right hemidiaphragm elevation. Maintained on Zithrom ax, Rocephin. Continues on IV steroids, nebulized bronchodilators. Afebrile, jump in WBC up to 20.6 from 12.7 yesterday. Blood sugars controlled. EEG completed yesterday reported as abnormal, slow, consistent with drowsiness or and encephalopathic state. Echo reported normal LV function, EF 55-60%, moderately enlarged right ventricle, severely dilated LA, moderate aortic stenosis, moderate to severe mitral regurgitation, [id number] mitral stenosis, severe tricuspid regurgitation, severe pulmonary hypertension. Objective - Vital Signs Vital signs: Vital Signs Temp 97.4 F L 10/08/19 12:00 Pulse 97 10/08/19 12:00 Resp 34 H 10/08/19 12:00 BP 142/77 10/08/19 12:00 Pulse Ox 92 L 10/08/19 12:00 Intake & Output 10/07/19 10/08/19 10/08/19 18:59 06:59 18:59 Intake Total 2592.445 1514.818 509.791 Output Total 833 1505 745 Balance 1759.445 9.818 -235.209 Weight 128.6 kg Intake: IV 0 1100 240 Sodium Chloride 0.9% 1, 1000 1100 240 000 ml @ 100 mls/hr IV . Q10H [facility] Rx#:[id number] Sodium Chloride 0.9% 1, 1000 000 ml @ 999 mls/hr IV . Q1H1M ONE Rx#:[id number] cefTRIAXone 1 gm In 50 Sodium Chloride 0.9% 50 ml @ 100 mls/hr IVPB Q24HR [facility] Rx#:[id number] Intake, IV Titration 278.445 176.818 141.791 Amount Propofol 1,000 mg In 178.445 176.818 91.791 Empty Bag 1 bag @ Titrate IV .Q0M [facility] Rx#: [id number] Sodium Chloride 0.9% 1, 100 000 ml @ 100 mls/hr IV . Q10H [facility] Rx#:[id number] cefTRIAXone 1 gm In 50 Sodium Chloride 0.9% 50 ml @ 100 mls/hr IVPB Q24HR [facility] Rx#:[id number] Tube Feeding 204 238 68 Other 60 60 Output: Urine 833 1505 745 Other: Voiding Method Indwelling Catheter Indwelling Catheter - Exam General: elderly female, recently extubated, Vitals reviewed Lungs: Diminished with scattered rhonchi, no rales CV: Regular rate and rhythm, Systolic murmur. Peripheral pulses 1+ Abdomen: soft, nondistended, no organomegaly Skin: warm and dry. Bilateral lower extremities Chau wrapped, no edema of bilateral feet - Labs CBC & Chem 7: 10/08/19 05:10/08/19 05:01 Labs: Abnormal Lab Results - Last 24 Hours (Table) 10/07/19 10/07/19 10/08/19 Range/Units 18:03 23:19 05:01 WBC 20.6 H (3.8-10.6) k/uL MCHC 30.1 L (31.0-37.0) g/dL Neutrophils # 19.6 H (1.3-7.7) k/uL Lymphocytes # 0.3 L (1.0-4.8) k/uL ABG pCO2 (35-45) mmHg ABG HCO3 (21-25) mmol/L ABG Total CO2 (19-24) mmol/L ABG O2 Saturation (94-97) % BUN (7-17) mg/dL Glucose (74-99) mg/dL POC Glucose (mg/dL) 158 H 174 H (75-99) mg/dL Calcium (8.4-10.2) mg/dL Total Protein (6.3-8.2) g/dL Albumin (3.5-5.0) g/dL 10/08/19 10/08/19 10/08/19 Range/Units 05:01 05:24 06:26 WBC (3.8-10.6) k/uL MCHC (31.0-37.0) g/dL Neutrophils # (1.3-7.7) k/uL Lymphocytes # (1.0-4.8) k/uL ABG pCO2 51 H (35-45) mmHg ABG HCO3 31 H (21-25) mmol/L ABG Total CO2 33 H (19-24) mmol/L ABG O2 Saturation 97.7 H (94-97) % BUN 36 H (7-17) mg/dL Glucose 152 H (74-99) mg/dL POC Glucose (mg/dL) 159 H (75-99) mg/dL Calcium 8.3 L (8.4-10.2) mg/dL Total Protein 5.7 L (6.3-8.2) g/dL Albumin 3.0 L (3.5-5.0) g/dL 10/08/19 Range/Units 12:19 WBC (3.8-10.6) k/uL MCHC (31.0-37.0) g/dL Neutrophils # (1.3-7.7) k/uL Lymphocytes # (1.0-4.8) k/uL ABG pCO2 (35-45) mmHg ABG HCO3 (21-25) mmol/L ABG Total CO2 (19-24) mmol/L ABG O2 Saturation (94-97) % BUN (7-17) mg/dL Glucose (74-99) mg/dL POC Glucose (mg/dL) 137 H (75-99) mg/dL Calcium (8.4-10.2) mg/dL Total Protein (6.3-8.2) g/dL Albumin (3.5-5.0) g/dL Microbiology - Last 24 Hours (Table) 10/05/19 20:28 Urine Culture - Final Urine,Catheterized Escherichia coli 10/05/19 23:16 Blood Culture - Preliminary Blood No Growth after 48 hours Assessment and Plan Assessment: (1) Acute respiratory failure with hypoxia and hypercapnia, status post mechanical ventilation Current Visit: Yes Status: Acute Code(s): J96.01 - ACUTE RESPIRATORY FAILURE WITH HYPOXIA; J96.02 - ACUTE RESPIRATORY FAILURE WITH HYPERCAPNIA SNOMED Code(s): 434925505 (2) Metabolic alkalosis with respiratory acidosis Current Visit: Yes Status: Acute Code(s): E87.4 - MIXED DISORDER OF ACID- BASE BALANCE SNOMED Code(s): 443533550 (3) Demand ischemia Current Visit: Yes Status: Acute Code(s): I24.8 - OTHER FORMS OF ACUTE ISCHE AARON HEART DISEASE SNOMED Code(s): 961026873 (4) COPD exacerbation Current Visit: Yes Status: Acute Code(s): J44.1 - CHRONIC OBSTRUCTIVE PULMONARY DISEASE W (ACUTE) EXACERBATION SNOMED Code(s): 996919484 (5) Elevated troponin, suspect related to demand ischemia, cardiology following Current Visit: Yes Status: Acute Code(s): R79.89 - OTHER SPECIFIED ABNORMAL FINDINGS OF BLOOD CHEMISTRY SNOMED Code(s): 371042266 (6) Severe sepsis Current Visit: No Status: Acute Code(s): A41.9 - SEPSIS, UNSPECIFIED ORGANISM; R65.20 - SEVERE SEPSIS WITHOUT SEPTIC SHOCK SNOMED Code(s): 32176685 (7) Coronaviirus not detected (8) acute UTI with E. coli (9) bilateral lower extremity cellulitis, stasis ulcer (10) chronic Afib (11) acute CHF exacerbation, diastolic dysfunction with valvular heart disease; moderate aortic stenosis, moderate to severe mitral regurgitation, fxyo-nj-[id number] mitral stenosis, severe tricuspid regurgitation (12) severe pulmonary hypertension. (13) possible acute bilateral pneumonia, possibly community-acquired. Plan: Continue current medication regime ,monitoring and symptomatic treatment. Sputum culture pending. Aggressive pulmonary toileting. Maintain IV antibiotics, nebulized bronchodilators, steroids. Weaning of steroids as per pulmonary. Close monitoring of WBC, electrolytes, renal function with repeat labs ordered for tomorrow Prognosis guarded given multiple complex medical issues. The impression and plan of care has been dictated as directed. : I performed a history and examination of this patient, discussed the same with the dictator. I agree with the dictator's note ,documented as a scribe. Any additional findings or plans will be noted.
[2019-10-08] MEDS: methylPREDNISolone SOD SUCCI 40 MG/ML 1 ML VIAL IV SCH (16:47)
[2019-10-08 17:45] LABS: Glucose,Whole Blood 127 mg/dL (75-99)
[2019-10-08 23:35] LABS: Glucose,Whole Blood 131 mg/dL (75-99)
[2019-10-09] MEDS: INSULIN ASPART (NovoLOG) 100 UNIT/ML VIAL SQ SCH ×4 (00:19→16:51)
[2019-10-09] MEDS: methylPREDNISolone SOD SUCCI 40 MG/ML 1 ML VIAL IV SCH ×3 (00:19→16:48)
[2019-10-09] MEDS: SODIUM CHLORIDE 0.9% 1,000 ML IV SCH ×3 (03:57→13:14)
[2019-10-09 05:24] LABS: Calcium 8.3 mg/dL (8.4-10.2); Potassium 3.8 mmol/L (3.5-5.1)
[2019-10-09 05:25] LABS: HCT 38.5 % (34.0-46.0); HGB 12.2 gm/dL (11.4-16.0); Hypochromasia Marked; MCHC 31.7 g/dL (31.0-37.0); MCV 94.8 fL (80.0-100.0); Mean Platelet Volume 7.6; Platelet Count 218 k/uL (150-450); RBC 4.06 m/uL (3.80-5.40); RDW 15.1 % (11.5-15.5); WBC 16.7 k/uL (3.8-10.6)
[2019-10-09] MEDS ORDERED: Potassium Replacement Protocol 1 EACH MISC MISCELLANE PRN (05:53)
[2019-10-09 06:09] LABS: Glucose,Whole Blood 130 mg/dL (75-99)
[2019-10-09] MEDS: POTASSIUM CHLORIDE 10 MEQ in WATER FOR INJECTION 1 100ML.BAG IVPB SCH ×2 (06:11→08:12)
[2019-10-09 06:51] LABS: Band Neutrophils % 2 %; Lymphocytes # (M) 0.33 k/uL (1.0-4.8); Monocytes # (M) 0.17 k/uL (0-1.0); Neutrophils % (M) 95 %; Nucleated Red Blood Cells 0 /100 WBC (0-0); Total Cells Counted 100
[2019-10-09 06:54] LABS: Poikilocytosis (M) Present
[2019-10-09 06:55] LABS: Anisocytosis (M) Present
[2019-10-09] MEDS: IPRATROPIUM-ALBUTEROL 3 ML NEB INHALATION SCH ×4 (07:19→19:40)
[2019-10-09] MEDS: FORMOTEROL FUMARATE 20 MCG/2 ML NEBU INHALATION SCH ×2 (07:19→19:40)
[2019-10-09] MEDS: BUDESONIDE 1 MG/2 ML NEBU INHALATION SCH ×2 (07:19→19:40)
--- NOTE | 2019-10-09 07:19 | XR ---
EXAMINATION TYPE: XR chest 1V portable DATE OF EXAM: 10/09/2019 Comparison: 10/08/2019 Clinical History: 79-year-old female Tube placement Findings: Heart mild to moderately enlarged. Interval extubation and removal of NG tube. Low lung volumes with crowded vascular markings and interstitial prominence. Bibasilar opacities remain. Impression: Cardiomegaly and mild bibasilar opacities remain, possible small effusions with adjacent atelectasis or consolidation.
--- NOTE | 2019-10-09 08:36 | P.PN ---
Subjective Progress Note Date: 10/09/19 Principal diagnosis: right heart failure This is an 7-year-old female patient with a past medical history significant for chronic obstructive pulmonary disease, paroxysmal atrial fibrillation, valvular heart disease with history of mitral valve endocarditis, moderate tricuspid r egurgitation, severe pulmonary hypertension as well as history of diastolic congestive heart failure. We requested to see the patient in consultation for abnormal cardiac enzymes. Currently the patient is intubated and she is on mechanical ventilation. The history was taken from the chart. The patient was brought to the hospital and emergency department with generalized weakness for the last 24 hours. No indication that she didn't have any symptoms of chest pain or chest discomfort but she was experiencing increasing in the shortness of breath. No fever or chills, no feeling of dizziness or lightheadedness, and no loss of consciousness or syncope. The patient was found to be hypoxic and subsequently she was intubated and placed on mechanical ventilation. When she was seen this morning, she was hemodynamically stable and not on any vasopressors. The chest x-ray was reviewed and showed finding consistent mostly with COPD. BNP came in to be slightly elevated. The patient does have bilateral lower extremities edema on examination but her chest examination overalls showed clear breathing sounds bilaterally. The first set of troponin came in to be slightly elevated. The EKG showed sinus tachycardia with diffuse nonspecific ST and T wave abnormalities. The patient had an echocardiogram in 2018 and that revealed normal left ventricular systolic function with mild MR, moderate TR, severe pulmonary hypertension. No indication that the patient didn't have any history of coronary artery disease or coronary revascularization in the past. The patient was seen today, 10/09/2019. She is more responsive and more awake. hemodynamically she is stable. She has been in normal sinus mechanism. The urine output has been good since she was started on Lasix IV. The creatinine continues to be stable. She still have bilateral lower extremities edema. The chest x-ray showed bilateral pleural effusion. She underwent an echocardiogram which revealed preserved left ventricular systolic function with evidence of moderate to severe mitral regurgitation, severe tricuspid regurgitation, severe pulmonary hypertension. Finding explained her right and left heart failure. I would suggest continue the patient on Lasix IV with continued monitoring the kidney function and electrolytes and follow-up with the patient Objective - Vital Signs Vital signs: Vital Signs Temp 97.7 F 10/09/19 04:00 Pulse 93 10/09/19 07:42 Resp 20 05/29/20 07:00 BP 143/88 10/09/19 07:00 Pulse Ox 96 10/09/19 07:21 Intake & Output 10/08/19 10/09/19 10/09/19 18:59 06:59 18:59 Intake Total 569.791 120 10 Output Total 1505 1500 75 Balance -935.209 -1380 -65 Weight 128.6 kg 126.6 kg Intake: IV 300 120 10 .9 110 10 Sodium Chloride 0.9% 1, 300 10 000 ml @ 100 mls/hr IV . Q10H [facility] Rx#:[id number] Intake, IV Titration 141.791 Amount Propofol 1,000 mg In 91.791 Empty Bag 1 bag @ Titrate IV .Q0M [facility] Rx#: [id number] cefTRIAXone 1 gm In 50 Sodium Chloride 0.9% 50 ml @ 100 mls/hr IVPB Q24HR [facility] Rx#:[id number] Tube Feeding 68 Other 60 Output: Urine 1505 1500 75 Other: Voiding Method Indwelling Catheter Indwelling Catheter - Constitutional General appearance: Present: no acute distress - Respiratory Respiratory: bilateral: diminished - Cardiovascular Rhythm: regular Heart sounds: normal: S1, S2 Abnormal Heart Sounds: Present: systolic murmur - Labs CBC & Chem 7: 10/09/19 04:33 10/09/19 04:33 Labs: Abnormal Lab Results - Last 24 Hours (Table) 10/08/19 10/08/19 10/08/19 Range/Units 12:19 17:42 23:23 WBC (3.8-10.6) k/uL Neutrophils # (Manual) (1.3-7.7) k/uL Lymphocytes # (Manual) (1.0-4.8) k/uL Carbon Dioxide (22-30) mmol/L BUN (7-17) mg/dL Glucose (74-99) mg/dL POC Glucose (mg/dL) 137 H 127 H 131 H (75-99) mg/dL Calcium (8.4-10.2) mg/dL 10/09/19 10/09/19 10/09/19 Range/Units 04:33 04:33 06:07 WBC 16.7 H (3.8-10.6) k/uL Neutrophils # (Manual) 16.10 H (1.3-7.7) k/uL Lymphocytes # (Manual) 0.33 L (1.0-4.8) k/uL Carbon Dioxide 32 H (22-30) mmol/L BUN 40 H (7-17) mg/dL Glucose 136 H (74-99) mg/dL POC Glucose (mg/dL) 130 H (75-99) mg/dL Calcium 8.3 L (8.4-10.2) mg/dL Microbiology - Last 24 Hours (Table) 10/05/19 23:16 Blood Culture - Preliminary Blood No Growth after 72 hours 10/06/19 01:35 Gram Stain - Final Sputum Sputum Culture - Final 10/05/19 20:28 Urine Culture - Final Urine,Catheterized Escherichia coli Assessment and Plan Assessment: assessment #1 acute hypoxic respiratory failure #2 congestive heart failure exacerbation secondary to diastole dysfunction with a component of right and left failure #3 valvular heart disease with mitral regurgitation as well as tricuspid regurgitation #4 severe pulmonary hypertension #5 morbid obesity #6 multiple comorbid conditions Plan #1 continue the current medical regimen including current dose of Lasix #2 continue monitoring the kidney function and electrolytes #3 follow-up with the patient
[2019-10-09 08:57] LABS: Phosphorus 4.9 mg/dL (2.5-4.5)
[2019-10-09] MEDS: ENOXAPARIN 40 MG/0.4 ML SYRINGE SQ SCH (09:36)
[2019-10-09] MEDS: FUROSEMIDE 10 MG/ML 4 ML VIAL IV SCH ×2 (09:36→21:42)
--- NOTE | 2019-10-09 09:53 | PN ---
PROGRESS NOTE PULMONARY/CRITICAL CARE PROGRESS NOTE: DATE OF SERVICE: 10/09/2019 This is a patient who is 79 years of age. She was admitted initially through the emergency department on October [address] Dimas. She has a history of atrial fibrillation, chronic bronchial asthma, heart failure, COPD, diabetes, hyperlipidemia, and essential hypertension. She presented with profound weakness and shortly thereafter presented or developed acute respiratory failure with hypoxemia and somnolence and she was intubated therefore by Dr. Dimas in the emergency room. Yesterday, to our surprise, she self- extubated herself and did not require re-intubation. She is currently on 3.5 L nasal cannula. She is getting saline IV at 20 mL an hour. The patient does have an Escherichia coli urinary tract infection. She is only on Rocephin. The Azithromycin was discontinued. The patient is a DO NOT RESUSCITATE/DO NOT INTUBATE patient. In my opinion, she is a candidate for the general medical floor. Currently, she really does not have any major complaints, although I cannot see that she is fully with it. In addition, she has a very congested wet cough. Current vital signs are reviewed. Temperature is 97.7, heart rate 88, respiratory rate 20, blood pressure 143/88 mean 106, 3 L saturation 95%. Appears in no acute distress. HEENT: Examination is grossly unremarkable. Nasal O2 noted. NECK: Supple, full range of motion. No adenopathy. Neck veins are flat. CARDIOVASCULAR: Examination reveals regular rhythm and rate. Heart rate about 88 beats per minute. S1, S2 normal. No S3, S4, or murmur. LUNGS: Reveal diminished breath sounds throughout. A few scattered rhonchi. No wheezes or crackles. Lung sounds are distant. ABDOMEN: Soft, bowel sounds are heard. EXTREMITIES: Reveal legs that are wrapped. The legs are erythematous and hyperemic. There are some chronic venostasis changes as well. SKIN: Without rash otherwise. NEUROLOGIC: Examination is non focal. She does have some generalized weakness, but she does respond appropriately. LABS: Reviewed. White count 16.7, hemoglobin 12.2, hematocrit 38.5, platelet count 218,000. Sodium, potassium, chloride normal, CO2 of 32, anion gap of 5. BUN and creatinine were 40 and 0.9, suggesting prerenal azotemia. Rest of the labs look okay. Microbiology is showing positivity for E coli in the urine from October 04. Chest x-ray done October 08 shows some cardiomegaly and some minimal bibasilar opacities or infiltrates. There also may be some small effusions. MEDICATIONS: Reviewed. She is currently on aspirin, Pulmicort, Rocephin, Lovenox, formoterol, Lasix, insulin, DuoNeb, Solu-Medrol, metoprolol, Narcan, potassium replacement, silver sulfadiazine cream, and a basic IV KVO. ASSESSMENT: 1. Acute hypoxemic respiratory failure requiring intubation and mechanical ventilation on October 04, likely related to underlying heart failure and/or atrial fibrillation/valvular heart disease, possible bilateral pneumonia and also possible E coli urinary tract infection/urosepsis. The patient self-extubated herself yesterday on October 07 successfully. 2. No evidence of pulmonary embolism on CT angiogram. 3. Possible bilateral community-acquired pneumonia. 4. Escherichia coli urinary tract infection/urosepsis. 5. History of atrial fibrillation/flutter. 6. History of chronic bronchial asthma. 7. History of congestive heart failure. 8. Diabetes mellitus by history. 9. Hyperlipidemia. 10.Valvular heart disease consistent with mild to moderate aortic stenosis. 11.Hypertension by history. 12.History of pneumonia. 13.Sleep apnea syndrome. 14.Hypothyroidism. 15.Multiple medical problems and comorbidities. PLAN: Overall, the patient seems to be doing relatively well. She is on 3.5 L of nasal cannula. Saturations are excellent. Her blood pressure is good. She is getting saline at KVO. She is on Rocephin for her Escherichia coli urinary tract infection/urosepsis. She is getting medications for underlying COPD including DuoNeb, Pulmicort, and formoterol. Additional recommendations and suggestions are forthcoming. Prognosis is guarded. Will continue to follow. I did tell the nurses that she would be a candidate for the general medical floor. MMODL / IJN: [id number] /
[2019-10-09] MEDS: ASPIRIN 81 MG PO SCH (11:41)
[2019-10-09] MEDS: METOPROLOL TARTRATE 12.5 MG TAB PO SCH ×3 (11:41→21:53)
[2019-10-09 11:42] LABS: Glucose,Whole Blood 136 mg/dL (75-99)
--- NOTE | 2019-10-09 12:24 | P.PN ---
Subjective Progress Note Date: 10/09/19 10/07/19 She is intubated and sedated today, her FiO2 is 35% and attempting to wean vent. Urine culture growing gram negative bacilli, CXR with bibasilar infiltrates. 10/08/2019 recently self extubated, maintaining O2 sats in the high 90s on 4 L nasal cannula. Chest x-ray reporting stable bibasilar airspace disease, trace pleural effusions, chronic right hemidiaphragm elevation. Maintained on Zithrom ax, Rocephin. Continues on IV steroids, nebulized bronchodilators. Afebrile, jump in WBC up to 20.6 from 12.7 yesterday. Blood sugars controlled. EEG completed yesterday reported as abnormal, slow, consistent with drowsiness or and encephalopathic state. Echo reported normal LV function, EF 55-60%, moderately enlarged right ventricle, severely dilated LA, moderate aortic stenosis, moderate to severe mitral regurgitation, djjj-fs-mdqnbqzw mitral stenosis, severe tricuspid regurgitation, severe pulmonary hypertension. 10/08/1929 More alert today .extubated yesterday, maintaining O2 sats in the high 90s on 3.5 L nasal cannula. Significant weakness. Telemetry normal sinus rhythm. Diuresing well on Lasix IV push with 24-hour I&O reflecting a negative fluid balance. Creatinine stable at 0.9. Chest x-ray reporting continued mild bibasilar opacities, interstitial prominence -possible small effusions, adjacent atelectasis/consolidation. Sputum reporting normal respiratory nicholas. Ma intained on Rocephin. Afebrile, WBC down to 16.7 .Blood sugars controlled. Objective - Vital Signs Vital signs: Vital Signs Temp 97.7 F 10/09/19 04:00 Pulse 97 10/09/19 11:15 Resp 20 10/09/19 07:00 BP 143/88 10/09/19 07:00 Pulse Ox 96 10/09/19 07:21 Intake & Output 10/08/19 10/09/19 10/09/19 18:59 06:59 18:59 Intake Total 569.791 120 10 Output Total 1505 1500 75 Balance -935.209 -1380 -65 Weight 128.6 kg 126.6 kg Intake: IV 300 120 10 .9 110 10 Sodium Chloride 0.9% 1, 300 10 000 ml @ 100 mls/hr IV . Q10H [facility] Rx#:[id number] Intake, IV Titration 141.791 Amount Propofol 1,000 mg In 91.791 Empty Bag 1 bag @ Titrate IV .Q0M [facility] Rx#: [id number] cefTRIAXone 1 gm In 50 Sodium Chloride 0.9% 50 ml @ 100 mls/hr IVPB Q24HR [facility] Rx#:[id number] Tube Feeding 68 Other 60 Output: Urine 1505 1500 75 Other: Voiding Method Indwelling Catheter Indwelling Catheter - Exam General: Sitting up in bed, no acute distress, significantly weak Lungs: Diminished with scattered bilateral rhonchi, no rales. Congested cough CV: Regular rate and rhythm, Systolic murmur. Peripheral pulses 1+ Abdomen: soft, nondistended, no organomegaly Skin: warm and dry. Bilateral lower extremities Chau wrapped, no edema of bilateral feet - Labs CBC & Chem 7: 10/09/19 04:33 10/09/19 04:33 Labs: Abnormal Lab Results - Last 24 Hours (Table) 10/08/19 10/08/19 10/08/19 Range/Units 12:19 17:42 23:23 WBC (3.8-10.6) k/uL Neutrophils # (Manual) (1.3-7.7) k/uL Lymphocytes # (Manual) (1.0-4.8) k/uL Carbon Dioxide (22-30) mmol/L BUN (7-17) mg/dL Glucose (74-99) mg/dL POC Glucose (mg/dL) 137 H 127 H 131 H (75-99) mg/dL Calcium (8.4-10.2) mg/dL Phosphorus (2.5-4.5) mg/dL 10/09/19 10/09/19 10/09/19 Range/Units 04:33 04:33 04:33 WBC 16.7 H (3.8-10.6) k/uL Neutrophils # (Manual) 16.10 H (1.3-7.7) k/uL Lymphocytes # (Manual) 0.33 L (1.0-4.8) k/uL Carbon Dioxide 32 H (22-30) mmol/L BUN 40 H (7-17) mg/dL Glucose 136 H (74-99) mg/dL POC Glucose (mg/dL) (75-99) mg/dL Calcium 8.3 L (8.4-10.2) mg/dL Phosphorus 4.9 H (2.5-4.5) mg/dL 10/09/19 10/09/19 Range/Units 06:07 11:40 WBC (3.8-10.6) k/uL Neutrophils # (Manual) (1.3-7.7) k/uL Lymphocytes # (Manual) (1.0-4.8) k/uL Carbon Dioxide (22-30) mmol/L BUN (7-17) mg/dL Glucose (74-99) mg/dL POC Glucose (mg/dL) 130 H 136 H (75-99) mg/dL Calcium (8.4-10.2) mg/dL Phosphorus (2.5-4.5) mg/dL Microbiology - Last 24 Hours (Table) 10/05/19 23:16 Blood Culture - Preliminary Blood No Growth after 72 hours 10/06/19 01:35 Gram Stain - Final Sputum Sputum Culture - Final 10/05/19 20:28 Urine Culture - Final Urine,Catheterized Escherichia coli Assessment and Plan Assessment: (1) Acute respiratory failure with hypoxia and hypercapnia, status post mechanical ventilation Current Visit: Yes Status: Acute Code(s): J96.01 - ACUTE RESPIRATORY FAILURE WITH HYPOXIA; J96.02 - ACUTE RESPIRATORY FAILURE WITH HYPERCAPNIA SNOMED Code(s): 051750004 (2) Metabolic alkalosis with respiratory acidosis Current Visit: Yes Status: Acute Code(s): E87.4 - MIXED DISORDER OF ACID- BASE BALANCE SNOMED Code(s): 575712094 (3) Demand ischemia Current Visit: Yes Status: Acute Code(s): I24.8 - OTHER FORMS OF ACUTE ISCHEMIC HEART DISEASE SNOMED Code(s): 323198442 (4) COPD exacerbation Current Visit: Yes Status: Acute Code(s): J44.1 - CHRONIC OBSTRUCTIVE PULMONARY DISEASE W (ACUTE) EXACERBATION SNOMED Code(s): 350016902 (5) Elevated troponin, suspect related to demand ischemia, cardiology following Current Visit: Yes Status: Acute Code(s): R79.89 - OTHER SPECIFIED ABNORMAL FINDINGS OF BLOOD CHEMISTRY SNOMED Code(s): 424846267 (6) Severe sepsis Current Visit: No Status: Acute Code(s): A41.9 - SEPSIS, UNSPECIFIED ORGANISM; R65.20 - SEVERE SEPSIS WITHOUT SEPTIC SHOCK SNOMED Code(s): 32474296 (7) Coronaviirus not detected (8) acute UTI with E. coli (9) bilateral lower extremity cellulitis, stasis ulcer (10) chronic Afib (11) acute CHF exacerbation, diastolic dysfunction with valvular heart disease; moderate aortic stenosis, moderate to severe mitral regurgitation, [id number] mitral stenosis, severe tricuspid regurgitation (12) severe pulmonary hypertension. (13) possible acute bilateral pneumonia, possibly community-acquired. Plan: Continue current medication regime ,monitoring and symptomatic treatment. Maintain aggressive pulmonary toileting with nebulized bronchodilators, steroids. Maintain IV antibiotics. PT/OT. Clinical Nursing Director discussing potential transfer out of ICU .Prognosis guarded given multiple complex medical issues. The impression and plan of care has been dictated as directed. : I performed a history and examination of this patient, discussed the same with the dictator. I agree with the dictator's note ,documented as a scribe. Any additional findings or plans will be noted.
[2019-10-09] MEDS: SILVER sulfADIAZINE Cream 400 GM 1 APPLIC APPLIC TOPICAL SCH (15:57)
[2019-10-09 16:52] LABS: Glucose,Whole Blood 144 mg/dL (75-99)
[2019-10-10] MEDS: INSULIN ASPART (NovoLOG) 100 UNIT/ML VIAL SQ SCH ×5 (00:40→20:41)
[2019-10-10 00:42] LABS: Glucose,Whole Blood 143 mg/dL (75-99)
[2019-10-10] MEDS: methylPREDNISolone SOD SUCCI 40 MG/ML 1 ML VIAL IV SCH ×2 (01:13→08:38)
[2019-10-10 05:59] LABS: Glucose,Whole Blood 135 mg/dL (75-99)
[2019-10-10] MEDS: FORMOTEROL FUMARATE 20 MCG/2 ML NEBU INHALATION SCH ×2 (08:14→19:17)
[2019-10-10] MEDS: IPRATROPIUM-ALBUTEROL 3 ML NEB INHALATION SCH ×4 (08:14→19:18)
[2019-10-10] MEDS: BUDESONIDE 1 MG/2 ML NEBU INHALATION SCH ×2 (08:14→19:17)
[2019-10-10] MEDS: FUROSEMIDE 10 MG/ML 4 ML VIAL IV SCH ×2 (08:38→20:47)
[2019-10-10] MEDS: ENOXAPARIN 40 MG/0.4 ML SYRINGE SQ SCH (08:38)
[2019-10-10] MEDS: METOPROLOL TARTRATE 12.5 MG TAB PO SCH ×2 (08:39→20:46)
[2019-10-10] MEDS: ASPIRIN 81 MG PO SCH (08:39)
[2019-10-10] MEDS: SILVER sulfADIAZINE Cream 400 GM 1 APPLIC APPLIC TOPICAL SCH (08:39)
--- NOTE | 2019-10-10 11:20 | P.PN ---
Subjective Progress Note Date: 10/10/19 Principal diagnosis: right heart failure This is an 7-year-old female patient with a past medical history significant for chronic obstructive pulmonary disease, paroxysmal atrial fibrillation, valvular heart disease with history of mitral valve endocarditis, moderate tricuspid r egurgitation, severe pulmonary hypertension as well as history of diastolic congestive heart failure. We requested to see the patient in consultation for abnormal cardiac enzymes. Currently the patient is intubated and she is on mechanical ventilation. The history was taken from the chart. The patient was brought to the hospital and emergency department with generalized weakness for the last 24 hours. No indication that she didn't have any symptoms of chest pain or chest discomfort but she was experiencing increasing in the shortness of breath. No fever or chills, no feeling of dizziness or lightheadedness, and no loss of consciousness or syncope. The patient was found to be hypoxic and subsequently she was intubated and placed on mechanical ventilation. When she was seen this morning, she was hemodynamically stable and not on any vasopressors. The chest x-ray was reviewed and showed finding consistent mostly with COPD. BNP came in to be slightly elevated. The patient does have bilateral lower extremities edema on examination but her chest examination overalls showed clear breathing sounds bilaterally. The first set of troponin came in to be slightly elevated. The EKG showed sinus tachycardia with diffuse nonspecific ST and T wave abnormalities. The patient had an echocardiogram in 2018 and that revealed normal left ventricular systolic function with mild MR, moderate TR, severe pulmonary hypertension. No indication that the patient didn't have any history of coronary artery disease or coronary revascularization in the past. The patient was seen today, October 092019. Overall she's doing better. She continues to be in normal sinus mechanism. She continues to be on Lasix IV. I will continue the Lasix IV because she still pending at this physical exami [facility]. The echo revealed normal LV function was moderate to severe mitral regurgitation, severe tricuspid regurgitation and severe pulmonary hypertension. Objective - Vital Signs Vital signs: Vital Signs Temp 97.8 F 10/10/19 06:45 Pulse 82 10/10/19 08:39 Resp 17 10/10/19 06:45 BP 154/80 10/10/19 06:45 Pulse Ox 94 L 10/10/19 06:45 Intake & Output 10/09/19 10/10/19 10/10/19 18:59 06:59 18:59 Intake Total 296 50 Output Total 915 1400 Balance -619 -1350 Weight 126.4 kg Intake: IV 60 .9 60 Intake, IV Titration 20 Amount Sodium Chloride 0.9% 1, 20 000 ml @ 10 mls/hr IV . Q24H [facility] Rx#:[id number] Oral 236 30 Output: Urine 915 1400 Other: Voiding Method Indwelling Catheter Indwelling Catheter Indwelling Catheter # Voids 0 # Bowel Movements 0 - Constitutional General appearance: Present: no acute distress - Respiratory Respiratory: bilateral: diminished - Cardiovascular Rhythm: regular Heart sounds: normal: S1, S2 Abnormal Heart Sounds: Present: systolic murmur - Labs CBC & Chem 7: 10/09/19 04:33 10/09/19 04:33 Labs: Abnormal Lab Results - Last 24 Hours (Table) 10/09/19 10/09/19 10/10/19 Range/Units 11:40 16:50 00:33 POC Glucose (mg/dL) 136 H 144 H 143 H (75-99) mg/dL 10/10/19 Range/Units 05:55 POC Glucose (mg/dL) 135 H (75-99) mg/dL Microbiology - Last 24 Hours (Table) 10/05/19 23:16 Blood Culture - Preliminary Blood No Growth after 96 hours Assessment and Plan Assessment: assessment #1 acute hypoxic respiratory failure #2 congestive heart failure exacerbation secondary to diastole dysfunction with a component of right and left failure #3 valvular heart disease with mitral regurgitation as well as tricuspid regurgitation #4 severe pulmonary hypertension #5 morbid obesity #6 multiple comorbid conditions Plan #1 continue the current medical regimen including current dose of Lasix #2 continue monitoring the kidney function and electrolytes #3 follow-up with the patient
[2019-10-10 11:44] LABS: Glucose,Whole Blood 172 mg/dL (75-99)
[2019-10-10] MEDS: SODIUM CHLORIDE 0.9% 1,000 ML IV SCH (11:45)
[2019-10-10 11:51] LABS: Basophils # (A) 0.1 k/uL (0-0.2); Basophils % (A) 1 %; Eosinophils # (A) 0.1 k/uL (0-0.7); Eosinophils % (A) 1 %; HCT 44.1 % (34.0-46.0); HGB 13.4 gm/dL (11.4-16.0); Hypochromasia Marked; Lymphocytes # (A) 0.3 k/uL (1.0-4.8); Lymphocytes % (A) 2 %; MCH 28.6 pg (25.0-35.0); MCHC 30.3 g/dL (31.0-37.0); MCV 94.4 fL (80.0-100.0); Mean Platelet Volume 7.5; Monocytes # (A) 0.6 k/uL (0-1.0); Monocytes % (A) 4 %; Neutrophils # (A) 11.7 k/uL (1.3-7.7); Neutrophils % (A) 91 %; Platelet Count 180 k/uL (150-450); RBC 4.67 m/uL (3.80-5.40); RDW 14.8 % (11.5-15.5); WBC 12.8 k/uL (3.8-10.6)
[2019-10-10 12:09] LABS: Calcium 8.4 mg/dL (8.4-10.2)
--- NOTE | 2019-10-10 13:25 | P.PN ---
Subjective 79-year-old pleasant female was transferred out of ICU was initially admitted for acute respiratory failure which was believed secondary to predominantly heart failure was treated for COPD as well patient the system steroids will be switched to oral patient doesn't have any wheezing or crackles were appreciated although patient is quite a bit confused but alert and oriented times close to 2 and patient is presently on 3 L of oxygen Review of systems: Unable to obtain as patient is a poor historian All inpatient medications were reviewed and appropriate changes in these medications as dictated in the interval history and assessment and plan. Objective - Vital Signs Vital signs: Vital Signs Temp 97.8 F 10/10/19 06:45 Pulse 86 10/10/19 12:00 Resp 17 10/10/19 06:45 BP 154/80 10/10/19 06:45 Pulse Ox 94 L 10/10/19 06:45 Intake & Output 10/09/19 10/10/19 10/10/19 18:59 06:59 18:59 Intake Total 296 50 Output Total 915 1400 Balance -619 -1350 Weight 126.4 kg Intake: IV 60 .9 60 Intake, IV Titration 20 Amount Sodium Chloride 0.9% 1, 20 000 ml @ 10 mls/hr IV . Q24H [facility] Rx#:[id number] Oral 236 30 Output: Urine 915 1400 Other: Voiding Method Indwelling Catheter Indwelling Catheter Indwelling Catheter # Voids 0 # Bowel Movements 0 - Exam PHYSICAL EXAMINATION: GENERAL: The patient is alert and confused unable to asses orientation, not in any acute distress. Well developed, well nourished. HEENT: Pupils are round and equally reacting to light. EOMI. No scleral icterus. No conjunctival pallor. Normocephalic, atraumatic. No pharyngeal erythema. No thyromegaly. CARDIOVASCULAR: S1 and S2 present. No murmurs, rubs, or gallops. PULMONARY: Chest is clear to auscultation, no wheezing or crackles. ABDOMEN: Soft, nontender, nondistended, normoactive bowel sounds. No palpable organomegaly. MUSCULOSKELETAL: No joint swelling or deformity. EXTREMITIES: No cyanosis, clubbing, or pedal edema. NEUROLOGICAL: Unable to assess SKIN: No rashes. - Labs CBC & Chem 7: 10/10/19 11:25 10/10/19 11:25 Labs: Abnormal Lab Results - Last 24 Hours (Table) 10/09/19 10/10/19 10/10/19 Range/Units 16:50 00:33 05:55 WBC (3.8-10.6) k/uL MCHC (31.0-37.0) g/dL Neutrophils # (1.3-7.7) k/uL Lymphocytes # (1.0-4.8) k/uL Carbon Dioxide (22-30) mmol/L BUN (7-17) mg/dL Glucose (74-99) mg/dL POC Glucose (mg/dL) 144 H 143 H 135 H (75-99) mg/dL 10/10/19 10/10/19 10/10/19 Range/Units 11:25 11:25 11:41 WBC 12.8 H (3.8-10.6) k/uL MCHC 30.3 L (31.0-37.0) g/dL Neutrophils # 11.7 H (1.3-7.7) k/uL Lymphocytes # 0.3 L (1.0-4.8) k/uL Carbon Dioxide 38 H (22-30) mmol/L BUN 45 H (7-17) mg/dL Glucose 167 H (74-99) mg/dL POC Glucose (mg/dL) 172 H (75-99) mg/dL Microbiology - Last 24 Hours (Table) 10/05/19 23:16 Blood Culture - Preliminary Blood No Growth after 96 hours Assessment and Plan Plan: Acute hypoxic respiratory failure requiring mechanical intubation patient was exhibited on October 04 patient is presently on 3 to cefoxitin and in with Lasix his steroids inhalational treatments. -Positive urinary tract infection with E. coli for which patient is on Rocephin and sent-atrial fibrillation presently rate controlled continue with present regimen -Possibility of community acquired pneumonia patient is already on Rocephin as mentioned above -COPD/asthma with acute exacerbation systemic steroids will be switched to oral steroids -Atrial fibrillation presently rate controlled not on anticoagulation patient companion for and the patient 2 diabetes mellitus hyperlipidemia -Hypertension DVT prophylaxis with Lovenox
--- NOTE | 2019-10-10 14:44 | P.PN ---
Subjective Progress Note Date: 10/10/19 Principal diagnosis: Acute hypoxemic respiratory failure secondary to bilateral pneumonia requiring intubation mechanical ventilatory support. Recovered. The patient is seen today 10/10/2019 in follow-up on the regular medical floor. She is currently sitting up in bed. Awake and alert in no acute distress. No worsening shortness of breath, cough or congestion. On 2 L nasal cannula. Sputum culture reveals no growth. Blood cultures reveal no growth. Urine culture was positive for E. coli. White count 12.8. Hemoglobin 13.4. Sodium 143. Potassium 4.0. Creatinine 0.92. She remains on bronchodilators, ceftriaxone, IV diuretics. Objective - Vital Signs Vital signs: Vital Signs Temp 97.8 F 10/10/19 06:45 Pulse 86 10/10/19 12:00 Resp 17 10/10/19 06:45 BP 154/80 10/10/19 06:45 Pulse Ox 94 L 10/10/19 06:45 Intake & Output 10/09/19 10/10/19 10/10/19 18:59 06:59 18:59 Intake Total 296 50 Output Total 915 1400 Balance -619 -1350 Weight 126.4 kg Intake: IV 60 .9 60 Intake, IV Titration 20 Amount Sodium Chloride 0.9% 1, 20 000 ml @ 10 mls/hr IV . Q24H [facility] Rx#:[id number] Oral 236 30 Output: Urine 915 1400 Other: Voiding Method Indwelling Catheter Indwelling Catheter Indwelling Catheter # Voids 0 # Bowel Movements 0 - Exam GENERAL EXAM: Alert, pleasant 79-year-old female patient, on 2 L nasal cannula, comfortable in no apparent distress. HEAD: Normocephalic. EYES: Normal reaction of pupils, equal size. NOSE: Clear with pink turbinates. THROAT: No erythema or exudates. NECK: No masses, no JVD. CHEST: No chest wall deformity. LUNGS: Equal air entry with crackles in the bilateral posterior bases. CVS: S1 and S2 normal with no audible murmur, regular rhythm. ABDOMEN: No hepatosplenomegaly, normal bowel sounds, no guarding or rigidity. SPINE: No scoliosis or deformity SKIN: No rashes CENTRAL NERVOUS SYSTEM: No focal deficits, tone is normal in all 4 extremities. EXTREMITIES: There is no peripheral edema. No clubbing, no cyanosis. Peripheral pulses are intact. - Labs CBC & Chem 7: 05/30/20 11:25 10/10/19 11:25 Labs: Abnormal Lab Results - Last 24 Hours (Table) 10/09/19 10/10/19 10/10/19 Range/Units 16:50 00:33 05:55 WBC (3.8-10.6) k/uL MCHC (31.0-37.0) g/dL Neutrophils # (1.3-7.7) k/uL Lymphocytes # (1.0-4.8) k/uL Carbon Dioxide (22-30) mmol/L BUN (7-17) mg/dL Glucose (74-99) mg/dL POC Glucose (mg/dL) 144 H 143 H 135 H (75-99) mg/dL 10/10/19 10/10/19 10/10/19 Range/Units 11:25 11:25 11:41 WBC 12.8 H (3.8-10.6) k/uL MCHC 30.3 L (31.0-37.0) g/dL Neutrophils # 11.7 H (1.3-7.7) k/uL Lymphocytes # 0.3 L (1.0-4.8) k/uL Carbon Dioxide 38 H (22-30) mmol/L BUN 45 H (7-17) mg/dL Glucose 167 H (74-99) mg/dL POC Glucose (mg/dL) 172 H (75-99) mg/dL Microbiology - Last 24 Hours (Table) 10/05/19 23:16 Blood Culture - Preliminary Blood No Growth after 96 hours Assessment and Plan Assessment: 1 Acute hypoxemic respiratory failure requiring intubation mechanical ventilation on 10/05/2019 with subsequent self extubation on 10/08/2019. This was felt to be related to underlying diastolic congestive heart failure, atrial fibrillation, valvular heart disease, bilateral pneumonia, sepsis secondary acute UTI. Improving currently on 2 L/m per nasal cannula 2 Sepsis secondary to urinary tract infection of E. coli. 3 History of atrial fibrillation/flutter 4 History of chronic bronchial asthma 5 History of diastolic congestive heart failure 6 Diabetes mellitus 7 Hyperlipidemia 8 Moderate aortic stenosis 9 Moderate to severe mitral regurgitation with mild to moderate mitral stenosis 10 Hypertension 11 Sleep apnea syndrome 12 Hypothyroidism Plan: The patient was seen and evaluated by Dr. Jorgensen She is improved from the pulmonary standpoint Continue with the current treatment plan Titrate down the FiO2 as tolerated We will continue to follow I, the cosigning physician, performed a history & physical examination of the patient. Lungs sounds with crackles in the bilateral posterior bases. Mainta ining good O2 saturations in the 90s on 2 L/m per nasal cannula. I discussed the assessment and plan of care with my nurse practitioner, Sweta Cunha. I attest to the above note as dictated by her.
[2019-10-10 16:41] LABS: Glucose,Whole Blood 129 mg/dL (75-99)
[2019-10-10 20:19] LABS: Glucose,Whole Blood 114 mg/dL (75-99)
[2019-10-11 06:55] LABS: Glucose,Whole Blood 112 mg/dL (75-99)
[2019-10-11] MEDS: INSULIN ASPART (NovoLOG) 100 UNIT/ML VIAL SQ SCH ×4 (07:27→20:31)
[2019-10-11 07:28] LABS: Basophils # (A) 0.1 k/uL (0-0.2); Basophils % (A) 1 %; Eosinophils # (A) 0.1 k/uL (0-0.7); Eosinophils % (A) 1 %; HCT 41.6 % (34.0-46.0); HGB 12.3 gm/dL (11.4-16.0); Hypochromasia Marked; Lymphocytes # (A) 0.8 k/uL (1.0-4.8); Lymphocytes % (A) 8 %; MCH 28.3 pg (25.0-35.0); MCHC 29.6 g/dL (31.0-37.0); MCV 95.5 fL (80.0-100.0); Mean Platelet Volume 7.2; Monocytes # (A) 0.9 k/uL (0-1.0); Monocytes % (A) 8 %; Neutrophils # (A) 8.7 k/uL (1.3-7.7); Neutrophils % (A) 81 %; Platelet Count 164 k/uL (150-450); RBC 4.35 m/uL (3.80-5.40); RDW 14.6 % (11.5-15.5); WBC 10.8 k/uL (3.8-10.6)
[2019-10-11 07:41] LABS: Calcium 8.5 mg/dL (8.4-10.2); Potassium 3.4 mmol/L (3.5-5.1)
[2019-10-11] MEDS: ASPIRIN 81 MG PO SCH (08:05)
[2019-10-11] MEDS: FUROSEMIDE 10 MG/ML 4 ML VIAL IV SCH ×2 (08:05→20:30)
[2019-10-11] MEDS: METOPROLOL TARTRATE 12.5 MG TAB PO SCH (08:05)
[2019-10-11] MEDS: ENOXAPARIN 40 MG/0.4 ML SYRINGE SQ SCH (08:05)
[2019-10-11] MEDS: SILVER sulfADIAZINE Cream 400 GM 1 APPLIC APPLIC TOPICAL SCH (08:06)
[2019-10-11] MEDS: FORMOTEROL FUMARATE 20 MCG/2 ML NEBU INHALATION SCH ×2 (09:08→20:51)
[2019-10-11] MEDS: BUDESONIDE 1 MG/2 ML NEBU INHALATION SCH ×2 (09:08→20:51)
[2019-10-11] MEDS: IPRATROPIUM-ALBUTEROL 3 ML NEB INHALATION SCH ×4 (09:09→20:51)
--- NOTE | 2019-10-11 10:15 | P.PN ---
Subjective Progress Note Date: 10/11/19 Principal diagnosis: right heart failure This is an 7-year-old female patient with a past medical history significant for chronic obstructive pulmonary disease, paroxysmal atrial fibrillation, valvular heart disease with history of mitral valve endocarditis, moderate tricuspid r egurgitation, severe pulmonary hypertension as well as history of diastolic congestive heart failure. We requested to see the patient in consultation for abnormal cardiac enzymes. Currently the patient is intubated and she is on mechanical ventilation. The history was taken from the chart. The patient was brought to the hospital and emergency department with generalized weakness for the last 24 hours. No indication that she didn't have any symptoms of chest pain or chest discomfort but she was experiencing increasing in the shortness of breath. No fever or chills, no feeling of dizziness or lightheadedness, and no loss of consciousness or syncope. The patient was found to be hypoxic and subsequently she was intubated and placed on mechanical ventilation. When she was seen this morning, she was hemodynamically stable and not on any vasopressors. The chest x-ray was reviewed and showed finding consistent mostly with COPD. BNP came in to be slightly elevated. The patient does have bilateral lower extremities edema on examination but her chest examination overalls showed clear breathing sounds bilaterally. The first set of troponin came in to be slightly elevated. The EKG showed sinus tachycardia with diffuse nonspecific ST and T wave abnormalities. The patient had an echocardiogram in 2018 and that revealed normal left ventricular systolic function with mild MR, moderate TR, severe pulmonary hypertension. No indication that the patient didn't have any history of coronary artery disease or coronary revascularization in the past. The patient was seen today, October 102019. Overall she's doing better. She continues to be in normal sinus mechanism. She continues to be on Lasix IV. the kidney function continues to be stable. I would advise continuing the IV Lasix for additional 24 hours and possibly switch her to by mouth Lasix by tomorrow. Beside that the pressure and heart rate are elevated and I'm going to increase the dose of metoprolol. Objective - Vital Signs Vital signs: Vital Signs Temp 97.5 F L 10/11/19 07:55 Pulse 88 10/11/19 09:29 Resp 17 10/11/19 07:55 BP 169/95 10/11/19 07:55 Pulse Ox 93 L 10/11/19 07:55 Intake & Output 10/10/19 10/11/19 10/11/19 18:59 06:59 18:59 Output Total 700 2500 Balance -700 -2500 Weight 126.6 kg Output: Urine 700 2500 Other: Voiding Method Indwelling Catheter Indwelling Catheter Indwelling Catheter - Constitutional General appearance: Present: no acute distress - Respiratory Respiratory: bilateral: diminished - Cardiovascular Rhythm: regular Heart sounds: normal: S1, S2 Abnormal Heart Sounds: Present: systolic murmur - Labs CBC & Chem 7: 10/11/19 07:06 10/11/19 07:06 Labs: Abnormal Lab Results - Last 24 Hours (Table) 10/10/19 10/10/19 10/10/19 Range/Units 11:25 11:25 11:41 WBC 12.8 H (3.8-10.6) k/uL MCHC 30.3 L (31.0-37.0) g/dL Neutrophils # 11.7 H (1.3-7.7) k/uL Lymphocytes # 0.3 L (1.0-4.8) k/uL Potassium (3.5-5.1) mmol/L Carbon Dioxide 38 H (22-30) mmol/L BUN 45 H (7-17) mg/dL Glucose 167 H (74-99) mg/dL POC Glucose (mg/dL) 172 H (75-99) mg/dL 10/10/19 10/10/19 10/11/19 Range/Units 16:39 20:18 06:52 WBC (3.8-10.6) k/uL MCHC (31.0-37.0) g/dL Neutrophils # (1.3-7.7) k/uL Lymphocytes # (1.0-4.8) k/uL Potassium (3.5-5.1) mmol/L Carbon Dioxide (22-30) mmol/L BUN (7-17) mg/dL Glucose (74-99) mg/dL POC Glucose (mg/dL) 129 H 114 H 112 H (75-99) mg/dL 10/11/19 10/11/19 Range/Units 07:06 07:06 WBC 10.8 H (3.8-10.6) k/uL MCHC 29.6 L (31.0-37.0) g/dL Neutrophils # 8.7 H (1.3-7.7) k/uL Lymphocytes # 0.8 L (1.0-4.8) k/uL Potassium 3.4 L (3.5-5.1) mmol/L Carbon Dioxide 40 H (22-30) mmol/L BUN 42 H (7-17) mg/dL Glucose 101 H (74-99) mg/dL POC Glucose (mg/dL) (75-99) mg/dL Microbiology - Last 24 Hours (Table) 10/05/19 23:16 Blood Culture - Preliminary Blood No Growth after 120 hours Assessment and Plan Assessment: assessment #1 acute hypoxic respiratory failure #2 congestive heart failure exacerbation secondary to diastole dysfunction with a component of right and left failure #3 valvular heart disease with mitral regurgitation as well as tricuspid regurgitation #4 severe pulmonary hypertension #5 morbid obesity #6 multiple comorbid conditions Plan #1 continue the current medical regimen including current dose of Lasix #2 continue monitoring the kidney function and electrolytes #3 follow-up with the patient
[2019-10-11] MEDS ORDERED: POTASSIUM CHLORIDE ER 20 MEQ TAB.ER PO STA (11:30)
[2019-10-11 11:51] LABS: Glucose,Whole Blood 46 mg/dL (75-99)
[2019-10-11 12:01] LABS: Glucose,Whole Blood 73 mg/dL (75-99)
[2019-10-11] MEDS: SODIUM CHLORIDE 0.9% 1,000 ML IV SCH (12:24)
--- NOTE | 2019-10-11 12:33 | P.PN ---
Subjective 79-year-old pleasant female was transferred out of ICU was initially admitted for acute respiratory failure which was believed secondary to predominantly heart failure was treated for COPD as well patient the system steroids will be switched to oral patient doesn't have any wheezing or crackles were appreciated although patient is quite a bit confused but alert and oriented times close to 2 and patient is presently on 3 L of oxygen 10/11/2019 Patient is still lethargic. But looks bit better compared to yesterday patient is able to answer my questions today Constitutional: Denied any fatigue denied any fever. Cardio vascular: denied any chest pain, palpitations Gastrointestinal denied any nausea vomiting Pulmonary: Denied any shortness of breath cough Neurologic denied any new focal deficits All inpatient medications were reviewed and appropriate changes in these medications as dictated in the interval history and assessment and plan. Objective - Vital Signs Vital signs: Vital Signs Temp 97.5 F L 10/11/19 07:55 Pulse 88 10/11/19 09:29 Resp 17 10/11/19 07:55 BP 169/95 10/11/19 07:55 Pulse Ox 93 L 10/11/19 07:55 Intake & Output 10/10/19 10/11/19 10/11/19 18:59 06:59 18:59 Output Total 700 2500 Balance -700 -2500 Weight 126.6 kg Output: Urine 700 2500 Other: Voiding Method Indwelling Catheter Indwelling Catheter Indwelling Catheter - Exam PHYSICAL EXAMINATION: GENERAL: The patient is alert and oriented 2, not in any acute distress. Well developed, well nourished. HEENT: Pupils are round and equally reacting to light. EOMI. No scleral icterus. No conjunctival pallor. Normocephalic, atraumatic. No pharyngeal erythema. No thyromegaly. CARDIOVASCULAR: S1 and S2 present. No murmurs, rubs, or gallops. PULMONARY: Chest is clear to auscultation, no wheezing or crackles. ABDOMEN: Soft, nontender, nondistended, normoactive bowel sounds. No palpable organomegaly. MUSCULOSKELETAL: No joint swelling or deformity. EXTREMITIES: No cyanosis, clubbing, or pedal edema. NEUROLOGICAL: no focal weakness just does have generalized weakness SKIN: No rashes. - Labs CBC & Chem 7: 10/11/19 07:06 10/11/19 07:06 Labs: Abnormal Lab Results - Last 24 Hours (Table) 10/10/19 10/10/19 10/11/19 Range/Units 16:39 20:18 06:52 WBC (3.8-10.6) k/uL MCHC (31.0-37.0) g/dL Neutrophils # (1.3-7.7) k/uL Lymphocytes # (1.0-4.8) k/uL Potassium (3.5-5.1) mmol/L Carbon Dioxide (22-30) mmol/L BUN (7-17) mg/dL Glucose (74-99) mg/dL POC Glucose (mg/dL) 129 H 114 H 112 H (75-99) mg/dL 10/11/19 10/11/19 10/11/19 Range/Units 07:06 07:06 11:47 WBC 10.8 H (3.8-10.6) k/uL MCHC 29.6 L (31.0-37.0) g/dL Neutrophils # 8.7 H (1.3-7.7) k/uL Lymphocytes # 0.8 L (1.0-4.8) k/uL Potassium 3.4 L (3.5-5.1) mmol/L Carbon Dioxide 40 H (22-30) mmol/L BUN 42 H (7-17) mg/dL Glucose 101 H (74-99) mg/dL POC Glucose (mg/dL) 46 L (75-99) mg/dL 10/11/19 Range/Units 11:59 WBC (3.8-10.6) k/uL MCHC (31.0-37.0) g/dL Neutrophils # (1.3-7.7) k/uL Lymphocytes # (1.0-4.8) k/uL Potassium (3.5-5.1) mmol/L Carbon Dioxide (22-30) mmol/L BUN (7-17) mg/dL Glucose (74-99) mg/dL POC Glucose (mg/dL) 73 L (75-99) mg/dL Microbiology - Last 24 Hours (Table) 10/05/19 23:16 Blood Culture - Preliminary Blood No Growth after 120 hours Assessment and Plan Plan: Acute hypoxic respiratory failure requiring mechanical ventilation patient was exhibited on October 04 patient is presently on 3 to cefoxitin and in with Lasix his steroids inhalational treatments. -Positive urinary tract infection with E. 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
--- NOTE | 2019-10-11 13:26 | P.PN ---
Subjective Progress Note Date: 10/11/19 Principal diagnosis: Acute hypoxemic respiratory failure secondary to bilateral pneumonia requiring intubation mechanical ventilatory support. Recovered. The patient is seen today 10/10/2019 in follow-up on the regular medical floor. She is currently sitting up in bed. Awake and alert in no acute distress. No worsening shortness of breath, cough or congestion. On 2 L nasal cannula. Sputum culture reveals no growth. Blood cultures reveal no growth. Urine culture was positive for E. coli. White count 12.8. Hemoglobin 13.4. Sodium 143. Potassium 4.0. Creatinine 0.92. She remains on bronchodilators, ceftriaxone, IV diuretics. Patient seen today 10/11/2019 in follow-up on the regular medical floor. She is resting comfortably in bed. Awake and alert in no acute distress. Maintaining O2 saturations in the 90s on 2 L/m per nasal cannula. She's been afebrile. Urine culture positive for E. coli. Blood culture reveals no growth. Sputum culture reveals no growth. White count 10.8. Hemoglobin 12.3. Sodium 145. Potassium 3.4. Creatinine 0.85. She remains on ceftriaxone. Lovenox for DVT prophylaxis. Bronchodilators and IV diuretics Objective - Vital Signs Vital signs: Vital Signs Temp 97.5 F L 10/11/19 07:55 Pulse 84 10/11/19 12:43 Resp 17 10/11/19 07:55 BP 169/95 10/11/19 07:55 Pulse Ox 93 L 10/11/19 07:55 Intake & Output 10/10/19 10/11/19 10/11/19 18:59 06:59 18:59 Output Total 700 2500 Balance -700 -2500 Weight 126.6 kg Output: Urine 700 2500 Other: Voiding Method Indwelling Catheter Indwelling Catheter Indwelling Catheter - Exam GENERAL EXAM: Alert, pleasant 79-year-old female patient, on 2 L nasal cannula, comfortable in no apparent distress. HEAD: Normocephalic. EYES: Normal reaction of pupils, equal size. NOSE: Clear with pink turbinates. THROAT: No erythema or exudates. NECK: No masses, no JVD. CHEST: No chest wall deformity. LUNGS: Equal air entry with crackles in the bilateral posterior bases. CVS: S1 and S2 normal with no audible murmur, regular rhythm. ABDOMEN: No hepatosplenomegaly, normal bowel sounds, no guarding or rigidity. SPINE: No scoliosis or deformity SKIN: No rashes CENTRAL NERVOUS SYSTEM: No focal deficits, tone is normal in all 4 extremities. EXTREMITIES: There is no peripheral edema. No clubbing, no cyanosis. Peripheral pulses are intact. - Labs CBC & Chem 7: 10/11/19 07:06 10/11/19 07:06 Labs: Abnormal Lab Results - Last 24 Hours (Table) 10/10/19 10/10/19 10/11/19 Range/Units 16:39 20:18 06:52 WBC (3.8-10.6) k/uL MCHC (31.0-37.0) g/dL Neutrophils # (1.3-7.7) k/uL Lymphocytes # (1.0-4.8) k/uL Potassium (3.5-5.1) mmol/L Carbon Dioxide (22-30) mmol/L BUN (7-17) mg/dL Glucose (74-99) mg/dL POC Glucose (mg/dL) 129 H 114 H 112 H (75-99) mg/dL 10/11/19 10/11/19 10/11/19 Range/Units 07:06 07:06 11:47 WBC 10.8 H (3.8-10.6) k/uL MCHC 29.6 L (31.0-37.0) g/dL Neutrophils # 8.7 H (1.3-7.7) k/uL Lymphocytes # 0.8 L (1.0-4.8) k/uL Potassium 3.4 L (3.5-5.1) mmol/L Carbon Dioxide 40 H (22-30) mmol/L BUN 42 H (7-17) mg/dL Glucose 101 H (74-99) mg/dL POC Glucose (mg/dL) 46 L (75-99) mg/dL 10/11/19 Range/Units 11:59 WBC (3.8-10.6) k/uL MCHC (31.0-37.0) g/dL Neutrophils # (1.3-7.7) k/uL Lymphocytes # (1.0-4.8) k/uL Potassium (3.5-5.1) mmol/L Carbon Dioxide (22-30) mmol/L BUN (7-17) mg/dL Glucose (74-99) mg/dL POC Glucose (mg/dL) 73 L (75-99) mg/dL Microbiology - Last 24 Hours (Table) 10/05/19 23:16 Blood Culture - Preliminary Blood No Growth after 120 hours Assessment and Plan Assessment: 1 Acute hypoxemic respiratory failure requiring intubation mechanical ventilation on 10/05/2019 with subsequent self extubation on 10/08/2019. This was felt to be multifactorial related to underlying diastolic congestive heart failure, atrial fibrillation, valvular heart disease, bilateral pneumonia, sepsis secondary acute UTI. Improving currently on 2 L/m per nasal cannula 2 Sepsis secondary to urinary tract infection of E. coli. Currently on ceftriaxone 3 History of atrial fibrillation/flutter 4 History of chronic bronchial asthma 5 History of diastolic congestive heart failure 6 Diabetes mellitus 7 Hyperlipidemia 8 Moderate aortic stenosis 9 Moderate to severe mitral regurgitation with mild to moderate mitral stenosis 10 Hypertension 11 Sleep apnea syndrome 12 Hypothyroidism Plan: The patient was seen and evaluated by Dr. Jameel Sanders from the pulmonary standpoint Continue with the current treatment plan Titrate down the FiO2 as tolerated We will continue to follow I, the cosigning physician, performed a history & physical examination of the patient. Lungs sounds with crackles in the bilateral posterior bases. Maintaining good O2 saturations in the 90s on 2 L/m per nasal cannula. I discussed the assessment and plan of care with my nurse practitioner, Sweta Cunha. I attest to the above note as dictated by her.
[2019-10-11 16:58] LABS: Glucose,Whole Blood 169 mg/dL (75-99)
[2019-10-11 20:23] LABS: Glucose,Whole Blood 271 mg/dL (75-99)
[2019-10-11] MEDS: METOPROLOL TARTRATE 25 MG TAB PO SCH (20:30)
[2019-10-12 07:16] LABS: Glucose,Whole Blood 103 mg/dL (75-99)
[2019-10-12] MEDS: INSULIN ASPART (NovoLOG) 100 UNIT/ML VIAL SQ SCH ×4 (07:25→21:18)
[2019-10-12] MEDS: ENOXAPARIN 40 MG/0.4 ML SYRINGE SQ SCH (07:37)
[2019-10-12] MEDS: FUROSEMIDE 10 MG/ML 4 ML VIAL IV SCH (07:37)
[2019-10-12] MEDS: ASPIRIN 81 MG PO SCH ×3 (07:37→10:28)
[2019-10-12] MEDS: METOPROLOL TARTRATE 25 MG TAB PO SCH ×4 (07:37→21:29)
[2019-10-12 07:38] LABS: African American GFR (CKD) >90 (>60 ml/min/1.73 sqM); Blood Urea Nitrogen 35 mg/dL (7-17); Calcium 8.2 mg/dL (8.4-10.2); Chloride 96 mmol/L (98-107); Glucose 72 mg/dL (74-99); Non-African American GFR(CKD) 84 (>60 ml/min/1.73 sqM); Potassium 3.7 mmol/L (3.5-5.1); Sodium 143 mmol/L (137-145)
[2019-10-12 07:45] LABS: Anion Gap 5 mmol/L
[2019-10-12 07:47] LABS: Carbon Dioxide 42 mmol/L (22-30)
[2019-10-12] MEDS: SILVER sulfADIAZINE Cream 400 GM 1 APPLIC APPLIC TOPICAL SCH (07:48)
[2019-10-12] MEDS: IPRATROPIUM-ALBUTEROL 3 ML NEB INHALATION SCH ×4 (08:46→20:33)
[2019-10-12] MEDS: BUDESONIDE 1 MG/2 ML NEBU INHALATION SCH ×2 (08:46→20:32)
[2019-10-12] MEDS: FORMOTEROL FUMARATE 20 MCG/2 ML NEBU INHALATION SCH ×2 (08:46→20:32)
[2019-10-12] MEDS: SODIUM CHLORIDE 0.9% 1,000 ML IV SCH (12:25)
[2019-10-12 12:36] LABS: Glucose,Whole Blood 127 mg/dL (75-99)
--- NOTE | 2019-10-12 13:49 | P.PN ---
Subjective Progress Note Date: 10/12/19 Principal diagnosis: Acute hypoxic respiratory failure second to bilateral pneumonia The patient is seen today 10/10/2019 in follow-up on the regular medical floor. She is currently sitting up in bed. Awake and alert in no acute distress. No worsening shortness of breath, cough or congestion. On 2 L nasal cannula. Sputum culture reveals no growth. Blood cultures reveal no growth. Urine culture was positive for E. coli. White count 12.8. Hemoglobin 13.4. Sodium 143. Potassium 4.0. Creatinine 0.92. She remains on bronchodilators, ceftriaxone, IV diuretics. Patient seen today 10/11/2019 in follow-up on the regular medical floor. She is resting comfortably in bed. Awake and alert in no acute distress. Maintaining O2 saturations in the 90s on 2 L/m per nasal cannula. She's been afebrile. Urine culture positive for E. coli. Blood culture reveals no growth. Sputum culture reveals no growth. White count 10.8. Hemoglobin 12.3. Sodium 145. Potassium 3.4. Creatinine 0.85. She remains on ceftriaxone. Lovenox for DVT prophylaxis. Bronchodilators and IV diuretics On 10/12/2019 patient seen in follow-up on general medical floor, she is awake and alert, in no acute distress, she is on 2 L of oxygen and the pulse ox of 92%, no fever or chills, hemodynamically stable, remains in atrial fibrillation with a controlled rate. Patient still has significant lower extremity edema, her lower extremities are Chau wrapped. Remains on IV diuretics at 40 mg every 12 hours, patient is becoming alkalotic on today's labs, we'll cut back the diuretic diuretics Objective - Vital Signs Vital signs: Vital Signs Temp 98.4 F 10/12/19 07:30 Pulse 75 10/12/19 07:30 Resp 18 10/12/19 07:30 BP 154/77 10/12/19 07:30 Pulse Ox 92 L 10/12/19 07:30 Intake & Output 10/11/19 10/12/19 10/12/19 18:59 06:59 18:59 Output Total 1400 1850 1400 Balance -1400 -1850 -1400 Weight 117 kg Output: Urine 1400 1850 1400 Other: Voiding Method Indwelling Catheter Indwelling Catheter # Voids 1 - Exam GENERAL EXAM: Alert, very pleasant, 79-year-old white female, on 2 L of oxygen with a pulse of 92%, comfortable in no apparent distress. HEAD: Normocephalic/atraumatic. EYES: Normal reaction of pupils, equal size. Conjunctiva pink, sclera white. NOSE: Clear with pink turbinates. THROAT: No erythema or exudates. NECK: No masses, no JVD, no thyroid enlargement, no adenopathy. CHEST: No chest wall deformity. Symmetrical expansion. LUNGS: Equal air entry with no crackles, wheeze, rhonchi or dullness. CVS: Regular rate and rhythm, normal S1 and S2, no gallops, no murmurs, no rubs ABDOMEN: Soft, nontender. No hepatosplenomegaly, normal bowel sounds, no guarding or rigidity. EXTREMITIES: No clubbing, 1+ lower extremity edema, lower extremities Chau wrap edema, no cyanosis, 2+ pulses and upper and lower extremities. MUSCULOSKELETAL: Muscle strength and tone normal. SPINE: No scoliosis or deformity SKIN: No rashes CENTRAL NERVOUS SYSTEM: Alert and oriented -3. No focal deficits, tone is normal in all 4 extremities. PSYCHIATRIC: Alert and oriented -3. Appropriate affect. Intact judgment and insight. - Labs CBC & Chem 7: 10/11/19 07:06 10/12/19 06:44 Labs: Abnormal Lab Results - Last 24 Hours (Table) 10/11/19 10/11/19 10/12/19 Range/Units 16:54 20:22 06:44 Chloride 96 L (98-107) mmol/L Carbon Dioxide 42 H* (22-30) mmol/L BUN 35 H (7-17) mg/dL Glucose 72 L (74-99) mg/dL POC Glucose (mg/dL) 169 H 271 H (75-99) mg/dL Calcium 8.2 L (8.4-10.2) mg/dL 10/12/19 10/12/19 Range/Units 06:57 11:26 Chloride (98-107) mmol/L Carbon Dioxide (22-30) mmol/L BUN (7-17) mg/dL Glucose (74-99) mg/dL POC Glucose (mg/dL) 103 H 127 H (75-99) mg/dL Calcium (8.4-10.2) mg/dL Microbiology - Last 24 Hours (Table) 10/05/19 23:16 Blood Culture - Final Blood No Growth after 144 hours Assessment and Plan Plan: Assessment: 1 Acute hypoxemic respiratory failure requiring intubation mechanical ventilation on 10/05/2019 with subsequent self extubation on 10/08/2019. This was felt to be multifactorial related to underlying diastolic congestive heart failure, atrial fibrillation, valvular heart disease, bilateral pneumonia, sepsis secondary acute UTI. Improving currently on 2 L/m per nasal cannula 2 Sepsis secondary to urinary tract infection of E. coli. Currently on ceftriaxone 3 History of atrial fibrillation/flutter 4 History of chronic bronchial asthma 5 History of diastolic congestive heart failure 6 Diabetes mellitus 7 Hyperlipidemia 8 Moderate aortic stenosis 9 Moderate to severe mitral regurgitation with mild to moderate mitral stenosis 10 Hypertension 11 Sleep apnea syndrome 12 Hypothyroidism 13 volume contraction alkalosis related to diuretic therapy Plan: Continue current medical treatment, will cut back to IV Lasix to once daily, patient is developing volume contraction alkalosis, she is having significant diuresis, no complaints of worsening dyspnea. Hemodynamically stable, she remains in A. fib with a controlled rate. She is had no fever or chills, continues on Rocephin for E. coli urinary tract infection. Increase activity as tolerated. Continue breathing treatments. Continue to follow I performed a history & physical examination of the patient and discussed their management with my nurse practitioner, Gretta Mello. I reviewed the nurse practitioner's note and agree with the documented findings and plan of care. Lung sounds are positive for diminished breath sounds. The findings and the impression was discussed with the patient. I attest to the documentation by the nurse practitioner. Time with Patient: Less than 30
--- NOTE | 2019-10-12 14:05 | P.PN ---
Subjective Progress Note Date: 10/12/19 10/07/19 She is intubated and sedated today, her FiO2 is 35% and attempting to wean vent. Urine culture growing gram negative bacilli, CXR with bibasilar infiltrates. 10/08/2019 recently self extubated, maintaining O2 sats in the high 90s on 4 L nasal cannula. Chest x-ray reporting stable bibasilar airspace disease, trace pleural effusions, chronic right hemidiaphragm elevation. Maintained on Zithrom ax, Rocephin. Continues on IV steroids, nebulized bronchodilators. Afebrile, jump in WBC up to 20.6 from 12.7 yesterday. Blood sugars controlled. EEG completed yesterday reported as abnormal, slow, consistent with drowsiness or and encephalopathic state. Echo reported normal LV function, EF 55-60%, moderately enlarged right ventricle, severely dilated LA, moderate aortic stenosis, moderate to severe mitral regurgitation, [id number] mitral stenosis, severe tricuspid regurgitation, severe pulmonary hypertension. 10/08/1929 More alert today .extubated yesterday, maintaining O2 sats in the high 90s on 3.5 L nasal cannula. Significant weakness. Telemetry normal sinus rhythm. Diuresing well on Lasix IV push with 24-hour I&O reflecting a negative fluid balance. Creatinine stable at 0.9. Chest x-ray reporting continued mild bibasilar opacities, interstitial prominence -possible small effusions, adjacent atelectasis/consolidation. Sputum reporting normal respiratory nicholas. Ma intained on Rocephin. Afebrile, WBC down to 16.7 .Blood sugars controlled. 10/12/2019 maintained on Rocephin, nebulized bronchodilators, IV diuretics. Diuresing well on Lasix IV push with 24-hour I&O reflecting a negative fluid balance. Renal function stable.CO2 trending up 42. reports unsure of how she slept last night and believes she was having hallucinations during the night. Currently alert and oriented 3 with no acute distress. Exertional shortness of breath, maintaining O2 sats in the 90s on 2 L nasal cannula. Telemetry reporting controlled A. fib. Coughing with thick liquids, MBS pending.Afebrile, sputum and blood cultures reveal no growth, urine culture positive for E. coli. Objective - Vital Signs Vital signs: Vital Signs Temp 98.4 F 10/12/19 07:30 Pulse 75 10/12/19 07:30 Resp 18 10/12/19 07:30 BP 154/77 10/12/19 07:30 Pulse Ox 92 L 10/12/19 07:30 Intake & Output 10/11/19 10/12/19 10/12/19 18:59 06:59 18:59 Output Total 1400 1850 1400 Balance -1400 -1850 -1400 Weight 117 kg Output: Urine 1400 1850 1400 Other: Voiding Method Indwelling Catheter Indwelling Catheter # Voids 1 - Exam General: Sitting up in bed, alert and oriented 3, no acute distress Lungs: Diminished with no rhonchi, no rales. No wheezing. Congested cough CV: Regular rate and rhythm, Systolic murmur. Peripheral pulses 1+ Abdomen: soft, nondistended, no organomegaly Skin: warm and dry. Bilateral lower extremities Chau wrapped, decreasing edema - Labs CBC & Chem 7: 10/11/19 07:06 10/12/19 06:44 Labs: Abnormal Lab Results - Last 24 Hours (Table) 10/11/19 10/11/19 10/12/19 Range/Units 16:54 20:22 06:44 Chloride 96 L (98-107) mmol/L Carbon Dioxide 42 H* (22-30) mmol/L BUN 35 H (7-17) mg/dL Glucose 72 L (74-99) mg/dL POC Glucose (mg/dL) 169 H 271 H (75-99) mg/dL Calcium 8.2 L (8.4-10.2) mg/dL 10/12/19 10/12/19 Range/Units 06:57 11:26 Chloride (98-107) mmol/L Carbon Dioxide (22-30) mmol/L BUN (7-17) mg/dL Glucose (74-99) mg/dL POC Glucose (mg/dL) 103 H 127 H (75-99) mg/dL Calcium (8.4-10.2) mg/dL Microbiology - Last 24 Hours (Table) 10/05/19 23:16 Blood Culture - Final Blood No Growth after 144 hours Assessment and Plan Assessment: (1) Acute respiratory failure with hypoxia and hypercapnia, status post mechanical ventilation, multifactorial, secondary to multi-valvular disease, CHF, pneumonia, A. fib, sepsis Current Visit: Yes Status: Acute Code(s): J96.01 - ACUTE RESPIRATORY FAILURE WITH HYPOXIA; J96.02 - ACUTE RESPIRATORY FAILURE WITH HYPERCAPNIA SNOMED Code(s): 336295789 (2) Metabolic alkalosis with respiratory acidosis Current Visit: Yes Status: Acute Code(s): E87.4 - MIXED DISORDER OF ACID- BASE BALANCE SNOMED Code(s): 031113844 (3) Demand ischemia Current Visit: Yes Status: Acute Code(s): I24.8 - OTHER FORMS OF ACUTE ISCHEMIC HEART DISEASE SNOMED Code(s): 061341696 (4) COPD exacerbation Current Visit: Yes Status: Acute Code(s): J44.1 - CHRONIC OBSTRUCTIVE PULMONARY DISEASE W (ACUTE) EXACERBATION SNOMED Code(s): 710012177 (5) Elevated troponin, suspect related to demand ischemia, cardiology following Current Visit: Yes Status: Acute Code(s): R79.89 - OTHER SPECIFIED ABNORMAL FINDINGS OF BLOOD CHEMISTRY SNOMED Code(s): 621227776 (6) Severe sepsis secondary to acute UTI with E. coli Current Visit: No Status: Acute Code(s): A41.9 - SEPSIS, UNSPECIFIED ORGANISM; R65.20 - SEVERE SEPSIS WITHOUT SEPTIC SHOCK SNOMED Code(s): 54845497 (7) Coronaviirus not detected (8) acute UTI with E. coli (9) bilateral lower extremity cellulitis, stasis ulcer (10) chronic Afib (11) acute CHF exacerbation, diastolic dysfunction with valvular heart disease; moderate aortic stenosis, moderate to severe mitral regurgitation, mild-to- moderate mitral stenosis, severe tricuspid regurgitation (12) severe pulmonary hypertension. (13) possible acute bilateral pneumonia, possibly community-acquired. (14) diabetes mellitus type 2 (15) hypertension (16) chronic bronchial asthma (17) delirium, acute metabolic encephalopathy, multifactorial , environment related, being in hospital, sleep deprivation, hypoxia, infection. Plan: Continue current medication regime ,monitoring and symptomatic treatment. Decrease diuretics. MBS pending. Strict aspiration precautions. Discharge planning in progress for subacute rehab. Patient prefers [facility]. Continue aggressive pulmonary toileting with nebulized bronchodilators, steroids, antibiotics of Rocephin. PT/OT. Prognosis guarded given multiple complex medical issues. The impression and plan of care has been dictated as directed. : I performed a history and examination of this patient, discussed the same with the dictator. I agree with the dictator's note ,documented as a scribe. Any additional findings or plans will be noted.
--- NOTE | 2019-10-12 15:26 | P.PN ---
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 She is seen and examined sitting up in bed in no acute distress. She continues to be short of breath with conversation. Denies chest pain, dizziness or palpitations. Telemetry tracings indicated sinus mechanism with PAC's. Maintaining negative fluid balance with over 3,000 ml of urine output in the last 24 hours. Her weight is down 9 kg since admission. Currently maintained on aspirin 81 mg daily, lasix 40 mg IV BID and lopressor 25 mg BID. Laboratory data reviewed, sodium 143, potassium 4.7, creatinine 0.66. She is somewhat confused about this admission GENERAL: Well-appearing, well-nourished and in no acute distress. Morbidly obese. NECK: Supple without JVD or thyromegaly. LUNGS: Breath sounds clear to auscultation bilaterally. Respiration equal and unlabored. No wheezes, rales or rhonchi. Diminished bilaterally. HEART: Irregular rate and rhythm with systolic ejection murmur at all listening points, no rubs or gallops. S1 and S2 heard. EXTREMITIES: Normal range of motion, bilateral lower extremity edema with JOHN wraps in place. No clubbing or cyanosis. Peripheral pulses intact. ASSESSMENT Acute hypoxic respiratory failure Acute on chronic diastolic heart failure Urinary tract infection Valvular heart disease Pulmonary hypertension COPD Paroxysmal atrial fibrillaiton Dyslipidemia Hypothyroidism Hypertension PLAN Resume eliquis 5 mg BID for thromboembolic protection. Transition to oral diuretics lasix 40 mg PO BID. Nurse Practitioner note has been reviewed, I agree with a documented findings and plan of care. Patient was seen and examined. Objective - Vital Signs Vital signs: Vital Signs Temp 98.4 F 10/12/19 07:30 Pulse 75 10/12/19 07:30 Resp 18 10/12/19 07:30 BP 154/77 10/12/19 07:30 Pulse Ox 92 L 10/12/19 07:30 Intake & Output 10/11/19 10/12/19 10/12/19 18:59 06:59 18:59 Output Total 1400 1850 1400 Balance -1400 -1850 -1400 Weight 117 kg Output: Urine 1400 1850 1400 Other: Voiding Method Indwelling Catheter Indwelling Catheter # Voids 1 - Labs CBC & Chem 7: 10/11/19 07:06 06/01/20 06:44 Labs: Abnormal Lab Results - Last 24 Hours (Table) 10/11/19 10/11/19 10/11/19 Range/Units 11:47 11:59 16:54 Chloride (98-107) mmol/L Carbon Dioxide (22-30) mmol/L BUN (7-17) mg/dL Glucose (74-99) mg/dL POC Glucose (mg/dL) 46 L 73 L 169 H (75-99) mg/dL Calcium (8.4-10.2) mg/dL 10/11/19 10/12/19 10/12/19 Range/Units 20:22 06:44 06:57 Chloride 96 L (98-107) mmol/L Carbon Dioxide 42 H* (22-30) mmol/L BUN 35 H (7-17) mg/dL Glucose 72 L (74-99) mg/dL POC Glucose (mg/dL) 271 H 103 H (75-99) mg/dL Calcium 8.2 L (8.4-10.2) mg/dL Microbiology - Last 24 Hours (Table) 10/05/19 23:16 Blood Culture - Final Blood No Growth after 144 hours
--- NOTE | 2019-10-12 15:45 | FL ---
MODIFIED SWALLOW / DEGLUTITION STUDY DATE OF EXAM: 10/12/2019 CLINICAL HISTORY: 79-year-old female rule out aspiration, patient admitted with pneumonia. TECHNIQUE: Deglutition study is performed utilizing thin liquid barium, honey and nectar thick liqui d barium, barium thick applesauce, and barium coated cracker. Total fluoroscopy time: 1 minute 46 seconds. Total images: None. Real-time fluoroscopy support was provided to speech pathology. COMPARISON: None. FINDINGS: Transient penetration is noted with thin and solid consistencies. There is also a mild swallowing apr axia with the patient holding the bolus for a prolonged period. No additional penetration or aspirati on is seen. No significant pharyngeal residue was appreciated. IMPRESSION: Transient penetration with thin and solid consistencies and a mild swallowing apraxia. Please refer to speech therapist notes for further details if necessary.
[2019-10-12 15:59] VITALS: BMI 45.6
[2019-10-12 16:59] LABS: Glucose,Whole Blood 88 mg/dL (75-99)
[2019-10-12] MEDS: FUROSEMIDE 40 MG TAB PO SCH (17:31)
[2019-10-12 21:10] LABS: Glucose,Whole Blood 121 mg/dL (75-99)
[2019-10-12] MEDS: APIXABAN 5 MG TAB PO SCH (21:29)
[2019-10-13 07:15] LABS: Glucose,Whole Blood 93 mg/dL (75-99)
[2019-10-13] MEDS: IPRATROPIUM-ALBUTEROL 3 ML NEB INHALATION SCH ×2 (07:47→11:25)
[2019-10-13] MEDS: BUDESONIDE 1 MG/2 ML NEBU INHALATION SCH (07:47)
[2019-10-13] MEDS: FORMOTEROL FUMARATE 20 MCG/2 ML NEBU INHALATION SCH (07:47)
[2019-10-13] MEDS: INSULIN ASPART (NovoLOG) 100 UNIT/ML VIAL SQ SCH ×2 (08:16→12:25)
[2019-10-13] MEDS: METOPROLOL TARTRATE 25 MG TAB PO SCH (08:20)
[2019-10-13] MEDS: ASPIRIN 81 MG PO SCH (08:20)
[2019-10-13] MEDS: APIXABAN 5 MG TAB PO SCH (08:20)
[2019-10-13] MEDS: FUROSEMIDE 40 MG TAB PO SCH (08:20)
[2019-10-13] MEDS: SILVER sulfADIAZINE Cream 400 GM 1 APPLIC APPLIC TOPICAL SCH (08:23)
[2019-10-13 08:25] VITALS: RESP 18
[2019-10-13 08:26] LABS: African American GFR (CKD) >90 (>60 ml/min/1.73 sqM); Blood Urea Nitrogen 26 mg/dL (7-17); Calcium 8.1 mg/dL (8.4-10.2); Chloride 89 mmol/L (98-107); Glucose 88 mg/dL (74-99); Non-African American GFR(CKD) 88 (>60 ml/min/1.73 sqM); Potassium 3.4 mmol/L (3.5-5.1); Sodium 138 mmol/L (137-145)
[2019-10-13 08:32] LABS: Anion Gap 7 mmol/L
[2019-10-13 08:34] LABS: Carbon Dioxide 42 mmol/L (22-30)
[2019-10-13 08:38] LABS: Basophils % (A) 0 %; Eosinophils # (A) 0.3 k/uL (0-0.7); Eosinophils % (A) 2 %; HCT 43.7 % (34.0-46.0); HGB 13.6 gm/dL (11.4-16.0); Hypochromasia Moderate; Lymphocytes % (A) 8 %; MCH 29.4 pg (25.0-35.0); MCHC 31.2 g/dL (31.0-37.0); MCV 94.1 fL (80.0-100.0); Mean Platelet Volume 7.7; Monocytes # (A) 0.9 k/uL (0-1.0); Monocytes % (A) 8 %; Neutrophils # (A) 9.7 k/uL (1.3-7.7); Neutrophils % (A) 80 %; Platelet Count 168 k/uL (150-450); RBC 4.64 m/uL (3.80-5.40); RDW 14.2 % (11.5-15.5); WBC 12.1 k/uL (3.8-10.6)
[2019-10-13] MEDS ORDERED: FUROSEMIDE 10 MG/ML 4 ML VIAL IV SCH (09:00)
[2019-10-13] MEDS ORDERED: Potassium Replacement Protocol 1 EACH MISC MISCELLANE PRN (10:01)
[2019-10-13] MEDS ORDERED: Magnesium Replacement Protocol 1 EACH MISC MISCELLANE PRN (10:09)
--- NOTE | 2019-10-13 10:26 | P.DS ---
Providers Date of admission: 10/05/19 22:45 Expected date of discharge: 10/13/19 Attending physician: Sriram Palm MD Consults: 10/05/19 22:45 Consult Physician Urgent Consulting Provider: Feliz Sena Consult Reason/Comments: critical care Do you want consulting provider notified?: Already Contacted 10/05/19 23:23 Consult Physician Routine Consulting Provider: [facility] Consult Reason/Comments: trop Do you want consulting provider notified?: Yes Primary care physician: Sriram Palm MD Hospital Course: Final Diagnoses: (1) Acute respiratory failure with hypoxia and hypercapnia, status post mechanical ventilation, multifactorial, secondary to multi-valvular disease, CHF, pneumonia, A. fib, sepsis Current Visit: Yes Status: Acute Code(s): J96.01 - ACUTE RESPIRATORY FAILURE WITH HYPOXIA; J96.02 - ACUTE RESPIRATORY FAILURE WITH HYPERCAPNIA SNOMED Code(s): 104715088 (2) Metabolic alkalosis with respiratory acidosis Current Visit: Yes Status: Acute Code(s): E87.4 - MIXED DISORDER OF ACID- BASE BALANCE SNOMED Code(s): 313176691 (3) Demand ischemia Current Visit: Yes Status: Acute Code(s): I24.8 - OTHER FORMS OF ACUTE ISCHEMIC HEART DISEASE SNOMED Code(s): 193518202 (4) COPD exacerbation Current Visit: Yes Status: Acute Code(s): J44.1 - CHRONIC OBSTRUCTIVE PULMONARY DISEASE W (ACUTE) EXACERBATION SNOMED Code(s): 185318869 (5) Elevated troponin, suspect related to demand ischemia, cardiology following Current Visit: Yes Status: Acute Code(s): R79.89 - OTHER SPECIFIED ABNORMAL FINDINGS OF BLOOD CHEMISTRY SNOMED Code(s): 309839031 (6) Severe sepsis secondary to acute UTI with E. coli Current Visit: No Status: Acute Code(s): A41.9 - SEPSIS, UNSPECIFIED ORGANISM; R65.20 - SEVERE SEPSIS WITHOUT SEPTIC SHOCK SNOMED Code(s): 05408826 (7) Coronaviirus not detected (8) acute UTI with E. coli (9) bilateral lower extremity cellulitis, stasis ulcer (10) chronic Afib (11) acute CHF exacerbation, diastolic dysfunction with valvular heart disease; moderate aortic stenosis, moderate to severe mitral regurgitation, [id number] mitral stenosis, severe tricuspid regurgitation (12) severe pulmonary hypertension. (13) possible acute bilateral pneumonia, possibly community-acquired. (14) diabetes mellitus type 2 (15) hypertension (16) chronic bronchial asthma (17) delirium, acute metabolic encephalopathy, multifactorial , environment related, being in hospital, sleep deprivation, hypoxia, infection. (18) hypokalemia, diuretic induced Hospital course:Nicole Goldsmith is an 79 yo F with PMH of COPD, valvular heart disease, diastolic CHF, atrial fibrillation who presented to the ED yesterday complaining of weakness. Pt is intubated and sedated, history via chart review. She came in via EMS with a a 1 day history of weakness, she did also complain of shortness of breath. She was initially afebrile, found to be hypoxic and placed on nasal cannula. CXR with mild pulmonary edema, BNP 1500, trop elevated at 0.017, WBC 11.3, bicarb 30. She was placed on BiPAP and ABG subsequently showed pH 7.23, CO2 83. Pt was intubated and sedated and started on rocephin, azithromycin and solumedrol. Today, her ABG has normalized and troponin trending down. 10/07/19 She is intubated and sedated today, her FiO2 is 35% and attempting to wean vent. Urine culture growing gram negative bacilli, CXR with bibasilar infiltrates. 10/08/2019 recently self extubated, maintaining O2 sats in the high 90s on 4 L nasal cannula. Chest x-ray reporting stable bibasilar airspace disease, trace pleural effusions, chronic right hemidiaphragm elevation. Maintained on Zithromax, Rocephin. Continues on IV steroids, nebulized bronchodilators. Afebrile, jump in WBC up to 20.6 from 12.7 yesterday. Blood sugars controlled. EEG completed yesterday reported as abnormal, slow, consistent with drowsiness or and encephalopathic state. Echo reported normal LV function, EF 55-60%, moderately enlarged right ventricle, severely dilated LA, moderate aortic stenosis, moderate to severe mitral regurgitation, nxjz-kc-lowwtzor mitral stenosis, severe tricuspid regurgitation, severe pulmonary hypertension. 10/08/1929 More alert today .extubated yesterday, maintaining O2 sats in the high 90s on 3.5 L nasal cannula. Significant weakness. Telemetry normal sinus rhythm. Diuresing well on Lasix IV push with 24-hour I&O reflecting a negative fluid balance. Creatinine stable at 0.9. Chest x-ray reporting continued mild bibasilar opacities, interstitial prominence -possible small effusions, adjacent atelectasis/consolidation. Sputum reporting normal respiratory nicholas. Maintained on Rocephin. Afebrile, WBC down to 16.7 .Blood sugars controlled. 10/12/2019 maintained on Rocephin, nebulized bronchodilators, IV diuretics. Diuresing well on Lasix IV push with 24-hour I&O reflecting a negative fluid bal ance. Renal function stable.CO2 trending up 42. reports unsure of how she slept last night and believes she was having hallucinations during the night. Currently alert and oriented 3 with no acute distress. Exertional shortness of breath, maintaining O2 sats in the 90s on 2 L nasal cannula. Telemetry reporting controlled A. fib. Coughing with thick liquids, MBS pending.Afebrile, sputum and blood cultures reveal no growth, urine culture positive for E. coli. Completed MBS with mild impairment. Diet advanced to chopped, aspiration precautions/patient allowed to have water without any thickener. No straws. Converted to oral Lasix. Currently receiving potassium supplements, magnesium level pending. Significant clinical improvement. Patient will be discharged today, in a stable condition with Prognosis to subacute rehab pending final DC recommendations and clearance from both pulmonary and cardiology. The impression and plan of care has been dictated as directed. : I performed a history and examination of this patient, discussed the same with the dictator. I agree with the dictator's note ,documented as a scribe. Any additional findings or plans will be noted. Patient Condition at Discharge: Stable Plan - Discharge Summary Discharge Rx Participant: No New Discharge Prescriptions: New Aspirin 81 mg PO DAILY chew Ipratropium-Albuterol Nebulize [Duoneb 0.5 mg-3 mg/3 ml Soln] 3 ml INHALATION RT-QID ml Ipratropium-Albuterol Nebulize [Duoneb 0.5 mg-3 mg/3 ml Soln] 3 ml INHALATION Q4H PRN ml PRN Reason: Shortness Of Breath Or Wheezing Furosemide [Lasix] 40 mg PO BID@0900,1600 tab Formoterol Fumarate [Perforomist] 20 mcg INHALATION RT-BID nebu Budesonide [Pulmicort] 1 mg INHALATION RT-BID ml SILVER sulfADIAZINE Cream [Silvadene 1% Cream] 1 applic TOPICAL DAILY applic Continue Apixaban [Eliquis] 5 mg PO BID tab Metoprolol Tartrate [Lopressor] 25 mg PO BID tab Montelukast [Singulair] 10 mg PO DAILY Levothyroxine Sodium [Synthroid] 100 mcg PO DAILY Changed Potassium Chloride [Klor-Con 8] 8 meq PO BID #0 Discontinued Amiodarone [Cordarone] 200 mg PO TID tab Furosemide [Lasix] 40 mg PO BID No Action Pravastatin Sodium [Pravachol] 20 mg PO DAILY Discharge Medication List Apixaban [Eliquis] 5 mg PO BID tab 07/07/18 [Rx] Metoprolol Tartrate [Lopressor] 25 mg PO BID tab 07/07/18 [Rx] Levothyroxine Sodium [Synthroid] 100 mcg PO DAILY 10/05/19 [History] Montelukast [Singulair] 10 mg PO DAILY 10/05/19 [History] Pravastatin Sodium [Pravachol] 20 mg PO DAILY 10/05/19 [History] Aspirin 81 mg PO DAILY chew 10/13/19 [Rx] Budesonide [Pulmicort] 1 mg INHALATION RT-BID ml 10/13/19 [Rx] Formoterol Fumarate [Perforomist] 20 mcg INHALATION RT-BID nebu 10/13/19 [Rx] Furosemide [Lasix] 40 mg PO BID@0900,1600 tab 10/13/19 [Rx] Ipratropium-Albuterol Nebulize [Duoneb 0.5 mg-3 mg/3 ml Soln] 3 ml INHALATION Q4H PRN ml 10/13/19 [Rx] Ipratropium-Albuterol Nebulize [Duoneb 0.5 mg-3 mg/3 ml Soln] 3 ml INHALATION RT-QID ml 10/13/19 [Rx] Potassium Chloride [Klor-Con 8] 8 meq PO BID #0 10/13/19 [Rx] SILVER sulfADIAZINE Cream [Silvadene 1% Cream] 1 applic TOPICAL DAILY applic 10/13/19 [Rx] Follow up Appointment(s)/Referral(s): Néstor,Jannette, DO [REFERRING] - 1 Week (After discharge from subacute rehab) Maryjane Wynn MD [STAFF PHYSICIAN] - 2 Weeks Activity/Diet/Wound Care/Special Instructions: Cyndi Junior Pending final DC recommendations and clearance from cardiology and pulmonary. Confirm cardiology follow-up visit prior to discharge. CBC, BMP, magnesium in 2 days Strict aspiration precautions, no straws Diet: Chopped, patient able to have water without any thickener.
[2019-10-13 11:43] LABS: Glucose,Whole Blood 140 mg/dL (75-99)
[2019-10-13] MEDS: SODIUM CHLORIDE 0.9% 1,000 ML IV SCH (12:25)
--- NOTE | 2019-10-13 13:08 | P.PN ---
Subjective Progress Note Date: 10/13/19 Principal diagnosis: Acute hypoxic respiratory failure second to bilateral pneumonia The patient is seen today 10/10/2019 in follow-up on the regular medical floor. She is currently sitting up in bed. Awake and alert in no acute distress. No worsening shortness of breath, cough or congestion. On 2 L nasal cannula. Sputum culture reveals no growth. Blood cultures reveal no growth. Urine culture was positive for E. coli. White count 12.8. Hemoglobin 13.4. Sodium 143. Potassium 4.0. Creatinine 0.92. She remains on bronchodilators, ceftriaxone, IV diuretics. Patient seen today 10/11/2019 in follow-up on the regular medical floor. She is resting comfortably in bed. Awake and alert in no acute distress. Maintaining O2 saturations in the 90s on 2 L/m per nasal cannula. She's been afebrile. Urine culture positive for E. coli. Blood culture reveals no growth. Sputum culture reveals no growth. White count 10.8. Hemoglobin 12.3. Sodium 145. Potassium 3.4. Creatinine 0.85. She remains on ceftriaxone. Lovenox for DVT prophylaxis. Bronchodilators and IV diuretics On 10/12/2019 patient seen in follow-up on general medical floor, she is awake and alert, in no acute distress, she is on 2 L of oxygen and the pulse ox of 92%, no fever or chills, hemodynamically stable, remains in atrial fibrillation with a controlled rate. Patient still has significant lower extremity edema, her lower extremities are Chau wrapped. Remains on IV diuretics at 40 mg every 12 hours, patient is becoming alkalotic on today's labs, we'll cut back the diuretic diuretics On 10/13/2019 patient seen in follow-up on general medical floor. She is awake and alert, she states is short of breath at rest, and with any exertion, but no acute distress, patient is currently on 2 L of oxygen the pulse ox of 92%, no fever or chills, no complaints of chest pain. Patient is in sinus mechanism, with a controlled rate of 65 BPM. On today's exam lung sounds are diminished at the bases, no crackles, no cough or congestion, remains on breathing treatments, yesterday we cut back her diuretics to once daily, today patient has been transitioned to oral Lasix at 40 mg twice daily. Patient is maintaining negative fluid balance, she is in -5 L over the last 24 hours. Today's labs have been reviewed, white blood cell count of 12.1, hemoglobin is 13.6, sodium is 138, potassium is 3.4, chloride is 89, CO2 is 42, B1 is 26 creatinine 0.58. Urine culture did show E. coli for which the patient completed a course of Rocephin and Zithromax. No other acute events overnight, the child planning is in progress for discharge to subacute rehab [facility] Objective - Vital Signs Vital signs: Vital Signs Temp 97.9 F 10/13/19 06:53 Pulse 80 10/13/19 11:32 Resp 18 10/13/19 06:53 BP 166/74 10/13/19 06:53 Pulse Ox 92 L 10/13/19 06:53 Intake & Output 10/12/19 10/13/19 10/13/19 18:59 06:59 18:59 Output Total 2800 2200 Balance -2800 -2200 Weight 117 kg 118.2 kg Output: Urine 2800 2200 Other: Voiding Method Indwelling Catheter Indwelling Catheter Indwelling Catheter # Voids 3 2 - Exam GENERAL EXAM: Alert, very pleasant, 79-year-old white female, on 2 L of oxygen with a pulse of 92%, comfortable in no apparent distress. HEAD: Normocephalic/atraumatic. EYES: Normal reaction of pupils, equal size. Conjunctiva pink, sclera white. NOSE: Clear with pink turbinates. THROAT: No erythema or exudates. NECK: No masses, no JVD, no thyroid enlargement, no adenopathy. CHEST: No chest wall deformity. Symmetrical expansion. LUNGS: Equal air entry with no crackles, wheeze, rhonchi or dullness. CVS: Regular rate and rhythm, normal S1 and S2, no gallops, no murmurs, no rubs ABDOMEN: Soft, nontender. No hepatosplenomegaly, normal bowel sounds, no guarding or rigidity. EXTREMITIES: No clubbing, 1+ lower extremity edema, lower extremities Chau wrap edema, no cyanosis, 2+ pulses and upper and lower extremities. MUSCULOSKELETAL: Muscle strength and tone normal. SPINE: No scoliosis or deformity SKIN: No rashes CENTRAL NERVOUS SYSTEM: Alert and oriented -3. No focal deficits, tone is normal in all 4 extremities. PSYCHIATRIC: Alert and oriented -3. Appropriate affect. Intact judgment and insight. - Labs CBC & Chem 7: 10/13/19 07:18 10/13/19 07:18 Labs: Abnormal Lab Results - Last 24 Hours (Table) 10/12/19 10/13/19 10/13/19 Range/Units 21:08 07:18 07:18 WBC 12.1 H (3.8-10.6) k/uL Neutrophils # 9.7 H (1.3-7.7) k/uL Potassium 3.4 L (3.5-5.1) mmol/L Chloride 89 L (98-107) mmol/L Carbon Dioxide 42 H* (22-30) mmol/L BUN 26 H (7-17) mg/dL POC Glucose (mg/dL) 121 H (75-99) mg/dL Calcium 8.1 L (8.4-10.2) mg/dL 10/13/19 Range/Units 11:42 WBC (3.8-10.6) k/uL Neutrophils # (1.3-7.7) k/uL Potassium (3.5-5.1) mmol/L Chloride (98-107) mmol/L Carbon Dioxide (22-30) mmol/L BUN (7-17) mg/dL POC Glucose (mg/dL) 140 H (75-99) mg/dL Calcium (8.4-10.2) mg/dL Assessment and Plan Plan: Assessment: 1 Acute hypoxemic respiratory failure requiring intubation mechanical ventila tion on 10/05/2019 with subsequent self extubation on 10/08/2019. This was felt to be multifactorial related to underlying diastolic congestive heart failure, atrial fibrillation, valvular heart disease, bilateral pneumonia, sepsis secondary to E. coli urinary tract infection Improving currently on 2 L/m per nasal cannula 2 Sepsis secondary to urinary tract infection of E. coli. Currently on ceftriaxone 3 History of atrial fibrillation/flutter 4 History of chronic bronchial asthma 5 History of diastolic congestive heart failure 6 Diabetes mellitus 7 Hyperlipidemia 8 Moderate aortic stenosis 9 Moderate to severe mitral regurgitation with mild to moderate mitral stenosis 10 Hypertension 11 Sleep apnea syndrome 12 Hypothyroidism 13 volume contraction alkalosis related to diuretic therapy Plan: Patient is doing well, still has some dyspnea at rest and with any exertion, rel ated to underlying valvular heart disease, aortic stenosis, severe mitral regurgitation and [id number] mitral stenosis. She remains on diuretics, she is in -5 L fluid balance over the last 24 hours, breathing has improved since admission, she's been afebrile, she's been treated for E. coli urinary tract infection, she completed a course of Zithromax and Rocephin, she's been afebrile. Discharge planning is in progress for discharge to [facility] today. I performed a history & physical examination of the patient and discussed their management with my nurse practitioner, Gretta Mello. I reviewed the nurse practitioner's note and agree with the documented findings and plan of care. Lung sounds are positive for diminished breath sounds. The findings and the impression was discussed with the patient. I attest to the documentation by the nurse practitioner. Time with Patient: Less than 30
[2019-10-13 15:36] VITALS: BP 128/70; PULSE 73; TEMP 98.1
== END 2019-10-13 14:31 | DRG 871 ==
LOC: EC 16:19 → 2SICU 22:45 → 4SSUR 10-09 13:02
PROVIDERS: ADMIT Family Medicine; ATTEND Family Medicine
PROC: 0BH17EZ Insertion of Endotracheal Airway into Trachea, Via Natural or Artificial Opening (ICD-10-PCS; principal; 2019-10-05)
PROC: 5A1945Z Respiratory Ventilation, 24-96 Consecutive Hours (ICD-10-PCS; principal; 2019-10-05)
DX: A41.51 Sepsis due to Escherichia coli [E. coli] (principal); G93.41 Metabolic encephalopathy; I50.33 Acute on chronic diastolic (congestive) heart failure; J18.9 Pneumonia, unspecified organism; J96.01 Acute respiratory failure with hypoxia; J96.02 Acute respiratory failure with hypercapnia; E87.4 Mixed disorder of acid-base balance; J44.0 Chronic obstructive pulmonary disease with (acute) lower respiratory infection; J44.1 Chronic obstructive pulmonary disease with (acute) exacerbation; J98.11 Atelectasis; L03.115 Cellulitis of right lower limb; L03.116 Cellulitis of left lower limb; N39.0 Urinary tract infection, site not specified; I48.92 Unspecified atrial flutter; Z68.42 Body mass index [BMI] 45.0-49.9, adult; I24.8 Other forms of acute ischemic heart disease; R65.20 Severe sepsis without septic shock; I27.29 Other secondary pulmonary hypertension; I50.82 Biventricular heart failure; I11.0 Hypertensive heart disease with heart failure; I71.2 Thoracic aortic aneurysm, without rupture; Z20.828 Contact with and (suspected) exposure to other viral communicable diseases; E11.9 Type 2 diabetes mellitus without complications; E66.01 Morbid (severe) obesity due to excess calories; I48.0 Paroxysmal atrial fibrillation; E03.9 Hypothyroidism, unspecified; E78.5 Hyperlipidemia, unspecified; E87.6 Hypokalemia; F32.9 Major depressive disorder, single episode, unspecified; G47.30 Sleep apnea, unspecified; I08.3 Combined rheumatic disorders of mitral, aortic and tricuspid valves; T50.2X5A Adverse effect of carbonic-anhydrase inhibitors, benzothiadiazides and other diuretics, initial encounter; M19.90 Unspecified osteoarthritis, unspecified site; R32 Unspecified urinary incontinence; I87.2 Venous insufficiency (chronic) (peripheral); I49.1 Atrial premature depolarization; Z66 Do not resuscitate; Z79.01 Long term (current) use of anticoagulants; Z72.820 Sleep deprivation; Z79.890 Hormone replacement therapy; Z79.899 Other long term (current) drug therapy; Z88.6 Allergy status to analgesic agent; Z88.1 Allergy status to other antibiotic agents; Z88.2 Allergy status to sulfonamides; Z88.8 Allergy status to other drugs, medicaments and biological substances; Z96.653 Presence of artificial knee joint, bilateral; Z90.710 Acquired absence of both cervix and uterus; Z87.01 Personal history of pneumonia (recurrent); Z98.84 Bariatric surgery status; Z90.49 Acquired absence of other specified parts of digestive tract; Z86.14 Personal history of Methicillin resistant Staphylococcus aureus infection; Z80.9 Family history of malignant neoplasm, unspecified; Z82.49 Family history of ischemic heart disease and other diseases of the circulatory system
CPT/HCPCS: 31500; 36415; 36600; 71045; 71275; 74230; 80048; 80053; 81001; 82805; 83605; 83735; 83880; 84100; 84443; 84484; 85025; 85379; 85610; 85730; 87040; 87070; 87077; 87086; 87186; 87205; 87635; 93005; 93306; 94002; 94003; 94640; 94660; 95816; 96365; 96366; 96367; 96375; 99291

== ENCOUNTER 2019-11-18 13:02 | Inpatient (IN) | payer MEDICARE ==
--- NOTE | 2019-11-18 13:25 | ED ---
General Adult HPI - General Chief complaint: Fall Stated complaint: Fall Time Seen by Provider: 11/18/19 13:12 Source: patient, EMS, RN notes reviewed, old records reviewed Mode of arrival: EMS Limitations: no limitations - History of Present Illness Initial comments: 79-year-old female presenting status post fall. Patient states she was getting dressed this morning, fell onto her backside, no neck or head injury. She denies loss of consciousness. She is complaining of right knee pain which is chronic. She states she's had increased generalized weakness and difficulty ambulating. She was recently discharged from [facility] and has been living with her daughter. She denies fever. Denies chills. Denies chest pain or dyspnea. She reports extremity edema and is following with wound care. - Related Data Home Medications Medication Instructions Recorded Confirmed Levothyroxine Sodium [Synthroid] 100 mcg PO DAILY 10/05/19 11/18/19 Montelukast [Singulair] 10 mg PO DAILY 10/05/19 11/18/19 Pravastatin Sodium [Pravachol] 20 mg PO DAILY 10/05/19 11/18/19 Fluticasone Propion/Salmeterol 1 puff INHALATION RT-BID 11/18/19 11/18/19 [Fluticasone-Salmeterol 250-50] Furosemide [Lasix] 40 mg PO BID 11/18/19 11/18/19 Potassium Chloride ER [K-Dur 10] 10 meq PO BID 11/18/19 11/18/19 SILVER sulfADIAZINE Cream 1 applic TOPICAL HS PRN 11/18/19 11/18/19 [Silvadene 1% Cream] Previous Rx's Medication Instructions Recorded Apixaban [Eliquis] 5 mg PO BID tab 07/07/18 Metoprolol Tartrate [Lopressor] 25 mg PO BID tab 07/07/18 Allergies Allergy/AdvReac Type Severity Reaction Status Date / Time thallium-201 Allergy Intermediate Rash/Hives Verified 11/18/19 15:36 Sulfa (Sulfonamide AdvReac Severe low Verified 11/18/19 15:36 Antibiotics) hemoglobin aspirin AdvReac Mild blood in Verified 11/18/19 15:36 stool vancomycin AdvReac Rash/Hives Verified 11/18/19 15:36 steri strips AdvReac Mild blisters Uncoded 06/26/18 12:43 skin Review of Systems ROS Statement: Those systems with pertinent positive or pertinent negative responses have been documented in the HPI. ROS Other: All systems not noted in ROS Statement are negative. Past Medical History Past Medical History: Atrial Fibrillation, Atrial Flutter, Asthma, Heart Failure, COPD, Diabetes Mellitus, Hyperlipidemia, Hypertension, Osteoarthritis (OA), Pneumonia, Skin Disorder, Sleep Apnea/CPAP/BIPAP Additional Past Medical History / Comment(s): heart valve problem 1 year ago-not sure of name, no cpap used, anemia, "chocolate" color stool, degenerative arthritis, "Bite" swenson on arms-cause unknown, no current rx for diabetes-diet control, leakage of urine, uses walker History of Any Multi-Drug Resistant Organisms: MRSA Date of last positivie culture/infection: 06/27/18 MDRO Source:: Right Leg Past Surgical History: Appendectomy, Bariatric Surgery, Hysterectomy, Joint Replacement, Orthopedic Surgery, Tonsillectomy Additional Past Surgical History / Comment(s): Picc line insertion/later removed, lap band, right knee replacement x 2 & left knee replaced with revision, L ganglion wirst surg., left ankle ORIF, right trigger thumb surg. juan cataracts Past Anesthesia/Blood Transfusion Reactions: Previous Problems w/ Anesthesia Additional Past Anesthesia/Blood Transfusion Reaction / Comment(s): difficulty waking up @times Past Psychological History: Anxiety, Depression Smoking Status: Never smoker Past Alcohol Use History: Rare Past Drug Use History: None Reported - Past Family History Daughter(s) Family Medical History: Deep Vein Thrombosis (DVT), Pulmonary Embolus Father Family Medical History: Cancer Mother Additional Family Medical History / Comment(s): Mother had hypotension. General Exam Limitations: no limitations General appearance: alert, in no apparent distress Head exam: Present: atraumatic, normocephalic Eye exam: Present: normal appearance, PERRL ENT exam: Present: normal exam Neck exam: Present: normal inspection. Absent: tenderness, meningismus Respiratory exam: Present: normal lung sounds bilaterally. Absent: respiratory distress, wheezes Cardiovascular Exam: Present: regular rate, normal rhythm GI/Abdominal exam: Present: soft. Absent: distended, tenderness, guarding Extremities exam: Present: normal capillary refill, pedal edema (Wound boot bilaterally) Neurological exam: Present: alert, oriented X3, CN II-XII intact. Absent: motor sensory deficit Psychiatric exam: Present: normal affect, normal mood Course Vital Signs 11/18/19 11/18/19 11/18/19 13:03 17:43 19:21 Temperature 98.5 F Pulse Rate 79 91 90 Respiratory 18 18 18 Rate Blood Pressure 116/65 108/58 126/67 O2 Sat by Pulse 98 95 95 Oximetry EKG Findings - EKG Comments: EKG Findings:: EKG: Sinus rhythm with PAC, rate of 77, MS interval 126, QRS dura tion 70, QTC 463, no ST segment elevation. Medical Decision Making - Medical Decision Making Patient admitted for gait instability, generalized weakness, multiple falls. Case discussed with Dr. Palm, will admit for PT evaluation, possible bhaskar cement. - Lab Data Result diagrams: 11/18/19 15:06 11/18/19 15:05 Lab Results 11/18/19 11/18/19 11/18/19 Range/Units 15:05 15:05 15:05 WBC (3.8-10.6) k/uL RBC (3.80-5.40) m/uL Hgb (11.4-16.0) gm/dL Hct (34.0-46.0) % MCV (80.0-100.0) fL MCH (25.0-35.0) pg MCHC (31.0-37.0) g/dL RDW (11.5-15.5) % Plt Count (150-450) k/uL Neutrophils % % Lymphocytes % % Monocytes % % Eosinophils % % Basophils % % Neutrophils # (1.3-7.7) k/uL Lymphocytes # (1.0-4.8) k/uL Monocytes # (0-1.0) k/uL Eosinophils # (0-0.7) k/uL Basophils # (0-0.2) k/uL Hypochromasia PT 11.0 (9.0-12.0) sec INR 1.1 (<1.2) APTT 25.1 (22.0-30.0) sec ABG Lactic Acid 1.7 H (0.5-1.6) mmol/L Sodium 136 L (137-145) mmol/L Potassium 4.0 (3.5-5.1) mmol/L Chloride 101 (98-107) mmol/L Carbon Dioxide 29 (22-30) mmol/L Anion Gap 6 mmol/L BUN 11 (7-17) mg/dL Creatinine 0.64 (0.52-1.04) mg/dL Est GFR (CKD-EPI)AfAm >90 (>60 ml/min/1.73 sqM) Est GFR (CKD-EPI)NonAf 85 (>60 ml/min/1.73 sqM) Glucose 72 L (74-99) mg/dL Calcium 8.4 (8.4-10.2) mg/dL Magnesium 1.8 (1.6-2.3) mg/dL Total Bilirubin 0.8 (0.2-1.3) mg/dL AST 28 (14-36) U/L ALT 8 (4-34) U/L Alkaline Phosphatase 76 (38-126) U/L Total Protein 5.4 L (6.3-8.2) g/dL Albumin 3.1 L (3.5-5.0) g/dL 11/18/19 Range/Units 15:06 WBC 13.1 H (3.8-10.6) k/uL RBC 3.90 (3.80-5.40) m/uL Hgb 11.8 (11.4-16.0) gm/dL Hct 36.4 (34.0-46.0) % MCV 93.4 (80.0-100.0) fL MCH 30.2 (25.0-35.0) pg MCHC 32.3 (31.0-37.0) g/dL RDW 14.0 (11.5-15.5) % Plt Count 309 (150-450) k/uL Neutrophils % 86 % Lymphocytes % 7 % Monocytes % 5 % Eosinophils % 1 % Basophils % 1 % Neutrophils # 11.2 H (1.3-7.7) k/uL Lymphocytes # 0.9 L (1.0-4.8) k/uL Monocytes # 0.7 (0-1.0) k/uL Eosinophils # 0.1 (0-0.7) k/uL Basophils # 0.1 (0-0.2) k/uL Hypochromasia Slight PT (9.0-12.0) sec INR (<1.2) APTT (22.0-30.0) sec ABG Lactic Acid (0.5-1.6) mmol/L Sodium (137-145) mmol/L Potassium (3.5-5.1) mmol/L Chloride (98-107) mmol/L Carbon Dioxide (22-30) mmol/L Anion Gap mmol/L BUN (7-17) mg/dL Creatinine (0.52-1.04) mg/dL Est GFR (CKD-EPI)AfAm (>60 ml/min/1.73 sqM) Est GFR (CKD-EPI)NonAf (>60 ml/min/1.73 sqM) Glucose (74-99) mg/dL Calcium (8.4-10.2) mg/dL Magnesium (1.6-2.3) mg/dL Total Bilirubin (0.2-1.3) mg/dL AST (14-36) U/L ALT (4-34) U/L Alkaline Phosphatase (38-126) U/L Total Protein (6.3-8.2) g/dL Albumin (3.5-5.0) g/dL Disposition Clinical Impression: Generalized weakness, At risk for readmission to hospital, Bilateral lower leg cellulitis, Leukocytosis, Fall Disposition: ADMITTED IP TO THIS [facility] Condition: Stable Is patient prescribed a controlled substance at d/c from ED?: No Decision to Admit Reason: Admit from EC Decision Date: 11/18/19 Decision Time: 21:08
[2019-11-18 15:17] LABS: ALT 8 U/L (4-34); AST 28 U/L (14-36); African American GFR (CKD) >90 (>60 ml/min/1.73 sqM); Albumin 3.1 g/dL (3.5-5.0); Alkaline Phosphatase 76 U/L (38-126); Anion Gap 6 mmol/L; Blood Urea Nitrogen 11 mg/dL (7-17); Calcium 8.4 mg/dL (8.4-10.2); Carbon Dioxide 29 mmol/L (22-30); Chloride 101 mmol/L (98-107); Glucose 72 mg/dL (74-99); Magnesium 1.8 mg/dL (1.6-2.3); Non-African American GFR(CKD) 85 (>60 ml/min/1.73 sqM); Sodium 136 mmol/L (137-145); Total Bilirubin 0.8 mg/dL (0.2-1.3); Total Protein 5.4 g/dL (6.3-8.2)
--- NOTE | 2019-11-18 15:18 | XR ---
EXAMINATION TYPE: XR chest 2V DATE OF EXAM: 11/18/2019 COMPARISON: Prior chest x-ray 10/09/2019 HISTORY: Trauma and pain TECHNIQUE: Frontal and lateral views of the chest are obtained. FINDINGS: There is persistent elevation of the right hemidiaphragm. The aorta is dense. There is no pneumothorax or pleural effusion evident. There are overlying cardiac leads. Heart size is stable. Vázquez bsegmental basilar atelectatic changes are suspected. There is improvement in the prominence and cent ral vascularity. Lap band is in place. IMPRESSION: Some basilar subsegmental atelectatic changes are present. Persistent elevation of the r ight hemidiaphragm.
--- NOTE | 2019-11-18 15:19 | XR ---
Right knee HISTORY: Trauma and pain 3 views right knee, correlation prior exam 04/21/2009 Patient is status post right knee arthroplasty. Alignment is stable. Lucency along the tibial plateau laterally is thought to be chronic. Bone mineralization is reduced. No evident joint effusion. IMPRESSION: No acute fracture or dislocation.
--- NOTE | 2019-11-18 15:20 | XR ---
AP pelvis HISTORY: Trauma and pain Single frontal view the pelvis. Patient is rotated. Bone mineralization is reduced. Alignment is maintained. Degenerative disc change s are present in the visualized lumbar spine. Probable calcified diverticula noted along the distribu tion of the sigmoid colon. Probable phleboliths within the pelvis. IMPRESSION: Exam is limited for evaluation due to rotation. No fracture or dislocation is evident. De generative disc disease. Probable diverticulosis.
[2019-11-18 15:22] LABS: Basophils # (A) 0.1 k/uL (0-0.2); Basophils % (A) 1 %; Eosinophils # (A) 0.1 k/uL (0-0.7); Eosinophils % (A) 1 %; HCT 36.4 % (34.0-46.0); HGB 11.8 gm/dL (11.4-16.0); Hypochromasia Slight; Lymphocytes # (A) 0.9 k/uL (1.0-4.8); Lymphocytes % (A) 7 %; MCH 30.2 pg (25.0-35.0); MCHC 32.3 g/dL (31.0-37.0); MCV 93.4 fL (80.0-100.0); Monocytes # (A) 0.7 k/uL (0-1.0); Monocytes % (A) 5 %; Neutrophils # (A) 11.2 k/uL (1.3-7.7); Neutrophils % (A) 86 %; Platelet Count 309 k/uL (150-450); WBC 13.1 k/uL (3.8-10.6)
[2019-11-18 15:47] LABS: INR 1.1 (<1.2); Partial Thromboplastin Time 25.1 sec (22.0-30.0)
[2019-11-18] MEDS ORDERED: NALOXONE 0.4 MG/ML 1 ML VIAL IV PRN (20:13)
[2019-11-18] MEDS ORDERED: ACETAMINOPHEN TAB 325 MG TAB PO PRN (20:13)
[2019-11-18] MEDS ORDERED: SODIUM CHLORIDE 0.9% 1,000 ML BAG ONE (22:41)
[2019-11-18] MEDS ORDERED: APIXABAN 5 MG TAB ONE (22:41)
[2019-11-18] MEDS ORDERED: PRAVASTATIN SODIUM 20 MG TAB ONE (22:41)
[2019-11-18] MEDS ORDERED: METOPROLOL TARTRATE 25 MG TAB ONE (22:41)
[2019-11-18] MEDS: SODIUM CHLORIDE 0.9% 1,000 ML IV SCH (23:45)
[2019-11-19 02:07] LABS: Glucose,Whole Blood 92 mg/dL (75-99)
[2019-11-19] MEDS: PRAVASTATIN SODIUM 20 MG TAB PO SCH ×2 (04:44→09:52)
[2019-11-19] MEDS: METOPROLOL TARTRATE 25 MG TAB PO SCH ×3 (04:44→20:48)
[2019-11-19] MEDS: APIXABAN 5 MG TAB PO SCH ×3 (04:44→20:48)
[2019-11-19] MEDS: LEVOTHYROXINE 100 MCG TAB PO SCH (06:10)
[2019-11-19 06:48] LABS: Glucose,Whole Blood 74 mg/dL (75-99)
[2019-11-19] MEDS: MONTELUKAST 10 MG TAB PO SCH (09:52)
[2019-11-19] MEDS: POTASSIUM CHLORIDE ER 10 MEQ TAB.ER.PRT PO SCH ×2 (09:52→20:48)
[2019-11-19] MEDS: FUROSEMIDE 40 MG TAB PO SCH ×2 (09:52→20:48)
[2019-11-19] MEDS: SODIUM CHLORIDE 0.9% 1,000 ML IV SCH (09:55)
[2019-11-19 11:52] LABS: Glucose,Whole Blood 77 mg/dL (75-99)
--- NOTE | 2019-11-19 14:39 | P.HPIM ---
History of Present Illness H&P Date: 11/19/19 Chief Complaint: syncope Nicole Goldsmith is an 79-year-old female with past medical history of atrial fibrillation, chronic diastolic CHF, lower extremity lymphedema, [facility] who presented to the emergency department after collapsing at home yesterday. She states she was standing up out of her bed when she began to feel lightheaded and woozy, and then proceeded to fall to the ground. She denies any loss of consciousness or hitting her head. Patient was brought into the emergency department by her daughter for evaluation of this event. She states this is been happening more frequently over the past few months and this is her fourth episode in that timeframe. She denies any numbness or tingling, chest pain, palpitations, shortness of breath, or dizziness. She denies dysuria. She states she has not been taking her Lasix regularly as it causes her to be incontinent. On presentation her vitals were stable, labs significant for WBC 13k, lactate 1.7, EKG normal sinus rhythm. Chest x-ray, hip x-ray negative for acute fracture. Review of Systems All systems: negative Constitutional: Reports malaise, Reports weakness, Denies chills, Denies fever Eyes: denies blurred vision, denies pain Ears, nose, mouth and throat: Denies headache, Denies sore throat Cardiovascular: Reports edema, Reports syncope, Denies chest pain, Denies shortness of breath Respiratory: Denies cough Gastrointestinal: Denies abdominal pain, Denies diarrhea, Denies nausea, Denies vomiting Genitourinary: Denies dysuria, Denies hematuria Musculoskeletal: Denies myalgias Integumentary: Denies pruritus, Denies rash Neurological: Reports weakness, Denies numbness Psychiatric: Denies anxiety, Denies depression Endocrine: Denies fatigue, Denies weight change Past Medical History Past Medical History: Atrial Fibrillation, Atrial Flutter, Asthma, Heart Failure, COPD, Diabetes Mellitus, Hyperlipidemia, Hypertension, Osteoarthritis (OA), Pneumonia, Skin Disorder, Sleep Apnea/CPAP/BIPAP Additional Past Medical History / Comment(s): heart valve problem 1 year ago-not sure of name, no cpap used, anemia, "chocolate" color stool, degenerative arthritis, "Bite" swenson on arms-cause unknown, no current rx for diabetes-diet control, leakage of urine, uses walker History of Any Multi-Drug Resistant Organisms: MRSA Date of last positivie culture/infection: 06/27/18 MDRO Source:: Right Leg Past Surgical History: Appendectomy, Bariatric Surgery, Hysterectomy, Joint Replacement, Orthopedic Surgery, Tonsillectomy Additional Past Surgical History / Comment(s): Picc line insertion/later removed, lap band, right knee replacement x 2 & left knee replaced with revision, L ganglion wirst surg., left ankle ORIF, right trigger thumb surg. juan cataracts Past Anesthesia/Blood Transfusion Reactions: Previous Problems w/ Anesthesia Additional Past Anesthesia/Blood Transfusion Reaction / Comment(s): difficulty waking up @times Past Psychological History: Anxiety, Depression Smoking Status: Never smoker Past Alcohol Use History: Rare Past Drug Use History: None Reported - Past Family History Daughter(s) Family Medical History: Deep Vein Thrombosis (DVT), Pulmonary Embolus Father Family Medical History: Cancer Mother Additional Family Medical History / Comment(s): Mother had hypotension. Medications and Allergies Home Medications Medication Instructions Recorded Confirmed Type Apixaban [Eliquis] 5 mg PO BID tab 07/07/18 11/18/19 Rx Metoprolol Tartrate [Lopressor] 25 mg PO BID tab 07/07/18 11/18/19 Rx Levothyroxine Sodium [Synthroid] 100 mcg PO DAILY 10/05/19 11/18/19 History Montelukast [Singulair] 10 mg PO DAILY 10/05/19 11/18/19 History Pravastatin Sodium [Pravachol] 20 mg PO DAILY 10/05/19 11/18/19 History Fluticasone Propion/Salmeterol 1 puff INHALATION RT-BID 11/18/19 11/18/19 History [Fluticasone-Salmeterol 250-50] Furosemide [Lasix] 40 mg PO BID 11/18/19 11/18/19 History Potassium Chloride ER [K-Dur 10] 10 meq PO BID 11/18/19 11/18/19 History SILVER sulfADIAZINE Cream 1 applic TOPICAL HS PRN 11/18/19 11/18/19 History [Silvadene 1% Cream] Allergies Allergy/AdvReac Type Severity Reaction Status Date / Time thallium-201 Allergy Intermediate Rash/Hives Verified 11/18/19 15:36 Sulfa (Sulfonamide AdvReac Severe low Verified 11/18/19 15:36 Antibiotics) hemoglobin aspirin AdvReac Mild blood in Verified 11/18/19 15:36 stool vancomycin AdvReac Rash/Hives Verified 11/18/19 15:36 steri strips AdvReac Mild blisters Uncoded 06/26/18 12:43 skin Physical Exam Vitals: Vital Signs Temp Pulse Pulse Resp BP BP Pulse Ox 11/19/19 07:00 97.6 F 70 16 106/71 99 11/19/19 04:00 18 11/19/19 02:06 97.9 F 74 130/73 92 L 11/19/19 00:00 18 11/18/19 19:43 98.0 F 92 135/73 95 11/18/19 19:21 90 18 126/67 95 11/18/19 17:43 91 18 108/58 95 Intake and Output 11/18/19 11/19/19 11/19/19 22:59 06:59 14:59 Intake Total 600 Output Total 150 1000 Balance -150 -400 Intake: IV 600 Sodium Chloride 0.9% 1, 600 000 ml @ 75 mls/hr IV . [id number] [facility] Rx#:[id number] Output: Urine 150 1000 Other: Voiding Method Diaper Diaper Incontinent Incontinent Weight 110.223 kg Gen.: Well developed, well-nourished elderly white female in no acute distress HEENT: Normocephalic, atraumatic, mucous membranes moist Neck: Supple, no thyromegaly, no JVD CV: Regular rate and rhythm, no murmur. Pulses 2+ Lungs: Normal effort, clear throughout Abdomen: Soft, nontender, nondistended, bowel sounds present Extremities: Bilateral lower extremities are wrapped in gauze. 3+ lymphedema Neuro: Alert and oriented 3, no focal deficit Skin: Warm and dry Results CBC & Chem 7: 11/18/19 15:06 11/18/19 15:05 Labs: Abnormal Lab Results - Last 24 Hours (Table) 11/18/19 11/18/19 11/18/19 Range/Units 15:05 15:05 15:06 WBC 13.1 H (3.8-10.6) k/uL Neutrophils # 11.2 H (1.3-7.7) k/uL Lymphocytes # 0.9 L (1.0-4.8) k/uL ABG Lactic Acid 1.7 H (0.5-1.6) mmol/L Sodium 136 L (137-145) mmol/L Glucose 72 L (74-99) mg/dL POC Glucose (mg/dL) (75-99) mg/dL Total Protein 5.4 L (6.3-8.2) g/dL Albumin 3.1 L (3.5-5.0) g/dL 11/19/19 Range/Units 06:47 WBC (3.8-10.6) k/uL Neutrophils # (1.3-7.7) k/uL Lymphocytes # (1.0-4.8) k/uL ABG Lactic Acid (0.5-1.6) mmol/L Sodium (137-145) mmol/L Glucose (74-99) mg/dL POC Glucose (mg/dL) 74 L (75-99) mg/dL Total Protein (6.3-8.2) g/dL Albumin (3.5-5.0) g/dL Thrombosis Risk Factor Assmnt - Choose All That Apply Other Risk Factors: No Assessment and Plan (1) Lymphedema Current Visit: Yes Status: Acute Code(s): I89.0 - LYMPHEDEMA, NOT ELSEWHERE CLASSIFIED SNOMED Code(s): 828490547 (2) Syncope and collapse Current Visit: Yes Status: Acute Code(s): R55 - SYNCOPE AND COLLAPSE SNOMED Code(s): 430335434 (3) Orthostatic hypotension Current Visit: Yes Status: Acute Code(s): I95.1 - ORTHOSTATIC HYPOTENSION SNOMED Code(s): 00225781 (4) COPD (chronic obstructive pulmonary disease) Current Visit: No Status: Acute Code(s): J44.9 - CHRONIC OBSTRUCTIVE PULMONARY DISEASE, UNSPECIFIED SNOMED Code(s): 87977542 (5) Morbid obesity with BMI of 50.0-59.9, adult Current Visit: No Status: Acute Code(s): E66.01 - MORBID (SEVERE) OBESITY DUE TO EXCESS CALORIES SNOMED Code(s): 721327413 (6) Paroxysmal A-fib Current Visit: No Status: Acute Code(s): I48.0 - PAROXYSMAL ATRIAL FIBRILLATION SNOMED Code(s): 793890995 (7) Urinary tract infection Current Visit: No Status: Acute Code(s): N39.0 - URINARY TRACT INFECTION, SITE NOT SPECIFIED SNOMED Code(s): 77425861 Plan: 1. Syncope and collapse. Likely secondary to orthostatic hypotension vs UTI. Obtain orthostatic vitals. Cardiology consult. IV fluid rehydration 2. Leukocytosis, urinary incontinence. Consider UTI. Obtain urinalysis and culture, procalcitonin. Start empiric Rocephin 3. Paroxysmal atrial fibrillation. Chronic diastolic CHF. Continue Lopressor, Eliquis Lasix
[2019-11-19 15:36] LABS: Glucose,Whole Blood 68 mg/dL (75-99)
[2019-11-19 16:50] LABS: Glucose,Whole Blood 118 mg/dL (75-99)
[2019-11-19 17:44] LABS: Appearance,Urine Clear (Clear); Bilirubin,Urine Negative (Negative); Blood,Urine Negative (Negative); Color,Urine Light Yellow; Glucose,Urine (UA) Negative (Negative); Ketones,Urine Negative (Negative); Leukocyte Esterase,Urine Negative (Negative); Nitrite,Urine Negative (Negative); Protein,Urine Negative (Negative); Specific Gravity,Urine 1.007 (1.001-1.035); Urobilinogen,Urine <2.0 mg/dL (<2.0)
[2019-11-19 20:36] LABS: Glucose,Whole Blood 117 mg/dL (75-99)
[2019-11-20] MEDS: SODIUM CHLORIDE 0.9% 1,000 ML IV SCH ×2 (02:06→08:14)
[2019-11-20] MEDS: LEVOTHYROXINE 100 MCG TAB PO SCH (05:36)
[2019-11-20 05:52] LABS: HCT 36.5 % (34.0-46.0); HGB 11.5 gm/dL (11.4-16.0); Hypochromasia Slight; MCH 29.7 pg (25.0-35.0); MCHC 31.5 g/dL (31.0-37.0); MCV 94.2 fL (80.0-100.0); Mean Platelet Volume 8.1; Platelet Count 276 k/uL (150-450); RBC 3.87 m/uL (3.80-5.40); RDW 14.2 % (11.5-15.5); WBC 9.6 k/uL (3.8-10.6)
[2019-11-20 06:03] LABS: African American GFR (CKD) >90 (>60 ml/min/1.73 sqM); Anion Gap 2 mmol/L; Blood Urea Nitrogen 9 mg/dL (7-17); Calcium 7.7 mg/dL (8.4-10.2); Carbon Dioxide 35 mmol/L (22-30); Chloride 99 mmol/L (98-107); Glucose 82 mg/dL (74-99); Non-African American GFR(CKD) 86 (>60 ml/min/1.73 sqM); Potassium 3.7 mmol/L (3.5-5.1); Sodium 136 mmol/L (137-145)
[2019-11-20 07:14] LABS: Band Neutrophils % 2 %; Eosinophils # (M) 0.19 k/uL (0-0.7); Lymphocytes # (M) 1.63 k/uL (1.0-4.8); Monocytes # (M) 0.96 k/uL (0-1.0); Neutrophils % (M) 69 %; Nucleated Red Blood Cells 0 /100 WBC (0-0); Total Cells Counted 100
[2019-11-20 07:55] LABS: Glucose,Whole Blood 83 mg/dL (75-99)
[2019-11-20] MEDS: METOPROLOL TARTRATE 25 MG TAB PO SCH ×2 (08:13→20:17)
[2019-11-20] MEDS: POTASSIUM CHLORIDE ER 10 MEQ TAB.ER.PRT PO SCH ×2 (08:13→20:17)
[2019-11-20] MEDS: APIXABAN 5 MG TAB PO SCH ×2 (08:13→20:17)
[2019-11-20] MEDS: MONTELUKAST 10 MG TAB PO SCH (08:13)
[2019-11-20] MEDS: PRAVASTATIN SODIUM 20 MG TAB PO SCH (08:13)
[2019-11-20] MEDS: FUROSEMIDE 40 MG TAB PO SCH ×2 (08:13→20:17)
--- NOTE | 2019-11-20 10:10 | P.CRDCN ---
History of Present Illness History of present illness: HISTORY OF PRESENTING ILLNESS This is a pleasant 79-year-old female past medical history significant for accidentally atrial fibrillation on long-term anticoagulation status post c ardioversion, dyslipidemia, infective endocarditis, hypertension, diabetes mellitus, COPD, pulmonary hypertension, obstructive sleep apnea, valvular heart disease and morbid obesity. She does not follow regularly in the office. In [address] Negro. We have been asked to see in consultation for syncope. She states yesterday she was attempting to change her nightgown and her legs suddenly became very weak and she fell to the floor. She denies feeling dizzy or lightheaded prior to falling. She denies loss of consciousness. She denies chest pain, shortness of breath, nausea, vomiting, diaphoresis or palpitations. She is seen and examined sitting up in the chair in no acute distress. DIAGNOSTICS EKG reveals sinus mechanism heart rate of 77 with poor R-wave progression. Chest xray basilar subsegmental atelectatic changes with persistent elevation of the right hemidiaphragm. Laboratory reviewed, WBC on admission 13.1 repeat this morning 9.6, hemoglobin 11.5, platelets 276, sodium 136, potassium 3.7, creatinine 0.61. Current cardiac medications include Lopressor 25 mg twice a day, pravastatin 20 mg daily, Eliquis 5 mg twice a day, Lasix 40 mg twice a day and potassium supplementation. Most recent echocardiogram obtained September 2019 reveals preserved LV systolic fu nction with ejection fraction 55-60%, severely dilated left atrium, moderate aortic stenosis with a mean gradient of 16 mmHg, moderate to severe mitral regurgitation, mild to moderate mitral stenosis with a mitral valve area of 2.2 cm, severe tricuspid regurgitation and severe pulmonary hypertension with RVSP of 82 mmHg. REVIEW OF SYSTEMS At the time of my exam: CONSTITUTIONAL: Denies fever or chills. CARDIOVASCULAR: Denies chest pain, shortness of breath, orthopnea, PND or palpitations. RESPIRATORY: Denies cough. GASTROINTESTINAL: Denies abdominal pain, diarrhea, constipation, nausea or vom iting. MUSCULOSKELETAL: Denies myalgias. NEUROLOGIC: Denies numbness, tingling or weakness. ENDOCRINE: Denies fatigue, weight change, polydipsia or polyurina. GENITOURINARY: Denies burning, hematuria or urgency with micturation. HEMATOLOGIC: Denies history of anemia or bleeding. PHYSICAL EXAMINATION Blood pressure 121/74 heart rate 78 afebrile and maintaining oxygen saturation on room air. CONSTITUTIONAL: No apparent distress. HEENT: Head is normocephalic. Pupils are equal, round. Sclerae anicteric. Mucous membranes of the mouth are moist. No JVD. No carotid bruit. CHEST EXAMINATION: Lungs are clear to auscultation. No chest wall tenderness is noted on palpation or with deep breathing. HEART EXAMINATION: Regular rate and rhythm. S1, S2 heard. Systolic ejection murmur at the base and murmur of MR at the apex, no gallops or rub. ABDOMEN: Soft, nontender. Positive bowel sounds. EXTREMITIES: 2+ peripheral pulses, significant discoloration and scaling of the lower extremity skin with edema noted bilaterally and no calf tenderness. NEUROLOGIC EXAMINATION: Patient is awake, alert and oriented x3. ASSESSMENT Near syncope and fall, no LOC Paroxysmal atrial fibrillation on long-term anticoagulation maintaining sinus mechanism Valvular heart disease Diabetes mellitus Hypertension COPD Pulmonary hypertension Obstructive sleep apnea Morbid obesity, BMI 43 PLAN Recent echocardiogram reviewed. We will not repeat on this admission. She denies LOC associated with the fall. Weakness could be related to general debility overall. No evidence to suggest cardiac etiology thus far. Apply monitoring manager to assess for an acute arrhythmia. Thank you kindly for this consultation. Nurse Practitioner note has been reviewed, I agree with a documented findings and plan of care. Patient was seen and examined. Past Medical History Past Medical History: Atrial Fibrillation, Atrial Flutter, Asthma, Heart Failure, COPD, Diabetes Mellitus, Hyperlipidemia, Hypertension, Osteoarthritis (OA), Pneumonia, Skin Disorder, Sleep Apnea/CPAP/BIPAP Additional Past Medical History / Comment(s): heart valve problem 1 year ago-not sure of name, no cpap used, anemia, "chocolate" color stool, degenerative arthritis, "Bite" swenson on arms-cause unknown, no current rx for diabetes-diet control, leakage of urine, uses walker History of Any Multi-Drug Resistant Organisms: MRSA Date of last positivie culture/infection: 06/27/18 MDRO Source:: Right Leg Past Surgical History: Appendectomy, Bariatric Surgery, Hysterectomy, Joint Rep lacement, Orthopedic Surgery, Tonsillectomy Additional Past Surgical History / Comment(s): Picc line insertion/later removed, lap band, right knee replacement x 2 & left knee replaced with revision, L ganglion wirst surg., left ankle ORIF, right trigger thumb surg. juan cataracts Past Anesthesia/Blood Transfusion Reactions: Previous Problems w/ Anesthesia Additional Past Anesthesia/Blood Transfusion Reaction / Comment(s): difficulty waking up @times Past Psychological History: Anxiety, Depression Smoking Status: Never smoker Past Alcohol Use History: Rare Past Drug Use History: None Reported - Past Family History Daughter(s) Family Medical History: Deep Vein Thrombosis (DVT), Pulmonary Embolus Father Family Medical History: Cancer Mother Additional Family Medical History / Comment(s): Mother had hypotension. Medications and Allergies Home Medications Medication Instructions Recorded Confirmed Type Apixaban [Eliquis] 5 mg PO BID tab 07/07/18 11/18/19 Rx Metoprolol Tartrate [Lopressor] 25 mg PO BID tab 07/07/18 11/18/19 Rx Levothyroxine Sodium [Synthroid] 100 mcg PO DAILY 10/05/19 11/18/19 History Montelukast [Singulair] 10 mg PO DAILY 10/05/19 11/18/19 History Pravastatin Sodium [Pravachol] 20 mg PO DAILY 10/05/19 11/18/19 History Fluticasone Propion/Salmeterol 1 puff INHALATION RT-BID 11/18/19 11/18/19 History [Fluticasone-Salmeterol 250-50] Furosemide [Lasix] 40 mg PO BID 11/18/19 11/18/19 History Potassium Chloride ER [K-Dur 10] 10 meq PO BID 11/18/19 11/18/19 History SILVER sulfADIAZINE Cream 1 applic TOPICAL HS PRN 11/18/19 11/18/19 History [Silvadene 1% Cream] Allergies Allergy/AdvReac Type Severity Reaction Status Date / Time thallium-201 Allergy Intermediate Rash/Hives Verified 11/18/19 15:36 Sulfa (Sulfonamide AdvReac Severe low Verified 11/18/19 15:36 Antibiotics) hemoglobin aspirin AdvReac Mild blood in Verified 11/18/19 15:36 stool vancomycin AdvReac Rash/Hives Verified 11/18/19 15:36 steri strips AdvReac Mild blisters Uncoded 06/26/18 12:43 skin Physical Exam Vitals: Vital Signs Temp Pulse Resp BP Pulse Ox 11/20/19 07:00 98.1 F 78 16 121/74 96 11/20/19 04:00 18 11/20/19 01:48 98.6 F 68 110/62 98 11/20/19 00:00 18 11/19/19 20:00 18 11/19/19 19:00 97.9 F 69 123/64 98 11/19/19 15:00 98.4 F 70 18 105/64 93 L Intake and Output 11/19/19 11/20/19 11/20/19 22:59 06:59 14:59 Output Total 800 Balance -800 Output: Urine 800 Other: Voiding Method Diaper Diaper Diaper Incontinent Incontinent Incontinent Results 11/20/19 05:30 11/20/19 05:30 CBC 11/20/19 Range/Units 05:30 WBC 9.6 (3.8-10.6) k/uL RBC 3.87 (3.80-5.40) m/uL Hgb 11.5 (11.4-16.0) gm/dL Hct 36.5 (34.0-46.0) % Plt Count 276 (150-450) k/uL Comprehensive Metabolic Panel 11/20/19 Range/Units 05:30 Sodium 136 L (137-145) mmol/L Potassium 3.7 (3.5-5.1) mmol/L Chloride 99 (98-107) mmol/L Carbon Dioxide 35 H (22-30) mmol/L BUN 9 (7-17) mg/dL Creatinine 0.61 (0.52-1.04) mg/dL Glucose 82 (74-99) mg/dL Calcium 7.7 L (8.4-10.2) mg/dL Current Medications Generic Name Dose Route Start Last Admin Trade Name Freq PRN Reason Stop Dose Admin Acetaminophen 650 mg 11/18/19 20:13 Tylenol Tab PO Q6H PRN MILD PAIN OR FEVER>100.5 Apixaban 5 mg 11/18/19 23:00 11/20/19 08:13 Eliquis PO 5 mg BID COURTNEY Administration Furosemide 40 mg 11/19/19 09:00 11/20/19 08:13 Lasix PO 40 mg BID COURTNEY Administration Sodium Chloride 1,000 mls @ 75 mls/hr 11/18/19 20:15 11/20/19 08:14 Saline 0.9% IV 75 mls/hr .[id number] COURTNEY Administration Levothyroxine Sodium 100 mcg 11/19/19 06:30 11/20/19 05:36 Synthroid PO 100 mcg DAILY@0630 COURTNEY Administration Metoprolol Tartrate 25 mg 11/18/19 23:00 11/20/19 08:13 Lopressor PO 25 mg BID COURTNEY Administration Montelukast Sodium 10 mg 11/19/19 09:00 11/20/19 08:13 Singulair PO 10 mg DAILY COURTNEY Administration Naloxone HCl 0.2 mg 11/18/19 20:13 Narcan IV Q2M PRN OPIOID REVERSAL Potassium Chloride 10 meq 11/19/19 09:00 11/20/19 08:13 K-Dur 10 PO 10 meq BID COURTNEY Administration Pravastatin Sodium 20 mg 11/18/19 23:00 11/20/19 08:13 Pravachol PO 20 mg DAILY COURTNEY Administration Intake and Output 11/19/19 11/20/19 11/20/19 22:59 06:59 14:59 Output Total 800 Balance -800 Output: Urine 800 Other: Voiding Method Diaper Diaper Diaper Incontinent Incontinent Incontinent 11/20/19 05:30 11/20/19 05:30
--- NOTE | 2019-11-20 11:35 | ECHOF ---
Referral Reason: MEASUREMENTS -------- HEIGHT: 160.0 cm WEIGHT: 110.2 kg BP: IVSd: 1.4 cm (0.6 - 1.1) LVIDd: 2.9 cm (3.9 - 5.3) LVPWd: 1.6 cm (0.6 - 1.1) IVSs: 2.1 cm LVIDs: 1.8 cm LVPWs: 1.8 cm LAESV Index (A-L): 54.44 ml/m Ao Diam: 3.2 cm (2.0 - 3.7) AV Cusp: 1.4 cm (1.5 - 2.6) LA Diam: 3.3 cm (2.7 - 3.8) MV EXCURSION: 11.106 mm (> 18.000) MV EF SLOPE: 29 mm/s (70 - 150) EPSS: 0.2 cm MV E Viet: 1.60 m/s MV DecT: 319 ms MV A Viet: 1.42 m/s MV E/A Ratio: 1.13 AV maxP.70 mmHg AV meanP.88 mmHg AR PHT: 900 ms RAP: 20.00 mmHg RVSP: 62.15 mmHg FINDINGS -------- Sinus rhythm. This was a technically adequate study. The left ventricular size is normal. There is moderate concentric left ventricular hypertrophy. O verall left ventricular systolic function is normal with, an EF between 55 - 60 %. Increased LAP st age 3 Diastolic Dysfunction. The right ventricle is normal in size. LA is severely dilated >40 ml/m2 The right atrial size is normal. There is mild aortic valve sclerosis. There is mild aortic regurgitation. There is mild aortic st enosis present. Peak/mean gradient across the Aortic Valve is 19.70mmHg / 12.88mmHg. Moderate mitral annular calcification present. [id number] mitral regurgitation is present. The peak and mean MV gradients are 13.15mmHg 4.41mmHg as measured by doppler. The tricuspid valve appears structurally normal. Mild tricuspid regurgitation present. There is m oderate to severe pulmonary hypertension. The right ventricular systolic pressure, as measured by D oppler, is 62.15mmHg. There is no pulmonic regurgitation present. The aortic root size is normal. The inferior vena cava is dilated with no significant inspiratory collapse which is consistent estima radha right atrial pressure of >20 mmHg. There is a trivial pericardial effusion present. CONCLUSIONS -------- 1. There is moderate concentric left ventricular hypertrophy. 2. Overall left ventricular systolic function is normal with, an EF between 55 - 60 %. 3. Increased LAP stage 3 Diastolic Dysfunction. 4. LA is severely dilated >40 ml/m2 5. There is mild aortic valve sclerosis. 6. There is mild aortic regurgitation. 7. There is mild aortic stenosis present. 8. Peak/mean gradient across the Aortic Valve is 19.70mmHg / 12.88mmHg. 9. Moderate mitral annular calcification present. 10. [id number] mitral regurgitation is present. 11. The peak and mean MV gradients are 13.15mmHg 4.41mmHg as measured by doppler. 12. Mild tricuspid regurgitation present. 13. There is moderate to severe pulmonary hypertension. 14. The inferior vena cava is dilated with no significant inspiratory collapse which is consistent es timated right atrial pressure of >20 mmHg. 15. There is a trivial pericardial effusion present. [employer] MANAGER: Marian Shah RDCS
[2019-11-20 11:50] LABS: Glucose,Whole Blood 95 mg/dL (75-99)
--- NOTE | 2019-11-20 13:39 | P.PN ---
Subjective Progress Note Date: 11/20/19 Nicole Goldsmith is an 79-year-old female with past medical history of atrial fibrillation, chronic diastolic CHF, lower extremity lymphedema, recently discharged from [facility] who presented to the emergency department after collapsing at home yesterday. She states she was standing up out of her bed when she began to feel lightheaded and woozy, and then proceeded to fall to the ground. She denies any loss of consciousness or hitting her head. Patient was brought into the emergency department by her daughter for evaluation of this event. She states this is been happening more frequently over the past few months and this is her fourth episode in that timeframe. She denies any numbness or tingling, chest pain, palpitations, shortness of breath, or dizziness. She denies dysuria. She states she has not been taking her Lasix regularly as it causes her to be incontinent. On presentation her vitals were stable, labs significant for WBC 13k, lactate 1.7, EKG normal sinus rhythm. Chest x-ray, hip x-ray negative for acute fracture. 11/20/2019 status post IV fluid hydration. Negative for orthostatic hypotension this morning. Denies lightheadedness, dizziness or focal deficits. Denies ches t pain, palpitations or shortness of breath. Consuming 75% on diet with no nausea or vomiting. Cardiology consult in place with recommendations pending. Objective - Vital Signs Vital signs: Vital Signs Temp 98.1 F 11/20/19 07:00 Pulse 78 11/20/19 07:00 Resp 16 11/20/19 07:00 BP 121/74 11/20/19 07:00 Pulse Ox 96 11/20/19 07:00 Intake & Output 11/19/19 11/20/19 11/20/19 18:59 06:59 18:59 Intake Total 600 Output Total 1000 800 Balance -400 -800 Intake: IV 600 Sodium Chloride 0.9% 1, 600 000 ml @ 75 mls/hr IV . [id number] [facility] Rx#:[id number] Output: Urine 1000 800 Other: Voiding Method Diaper Diaper Incontinent Incontinent - Exam Gen.: Sitting up in bed, no acute distress HEENT: Normocephalic, atraumatic, mucous membranes moist Neck: Supple, no thyromegaly, no JVD CV: Regular rate and rhythm, systolic murmur. Pulses 2+ Lungs: Normal effort, clear throughout Abdomen: Soft, nontender, nondistended, bowel sounds present Extremities: Bilateral lower extremities are wrapped in gauze. 3+ lymphedema, dry, scaling Neuro: Alert and oriented 3, no focal deficit Skin: Warm and dry - Labs CBC & Chem 7: 11/20/19 05:30 11/20/19 05:30 Labs: Abnormal Lab Results - Last 24 Hours (Table) 11/18/19 11/19/19 11/19/19 Range/Units 20:51 16:48 20:36 Sodium (137-145) mmol/L Carbon Dioxide (22-30) mmol/L POC Glucose (mg/dL) 68 L 118 H 117 H (75-99) mg/dL Calcium (8.4-10.2) mg/dL 11/20/19 Range/Units 05:30 Sodium 136 L (137-145) mmol/L Carbon Dioxide 35 H (22-30) mmol/L POC Glucose (mg/dL) (75-99) mg/dL Calcium 7.7 L (8.4-10.2) mg/dL Assessment and Plan Assessment: (1) Near Syncope and collapse secondary to dehydration, possibly arrhythmia, possibly medication induced. Current Visit: Yes Status: Acute Code(s): R55 - SYNCOPE AND COLLAPSE SNOMED Code(s): 974305415 (2) Orthostatic hypotension , resolved Current Visit: Yes Status: Acute Code(s): I95.1 - ORTHOSTATIC HYPOTENSION SNOMED Code(s): 80370853 (3) Paroxysmal A-fib on long-term anticoagulation Current Visit: No Status: Acute Code(s): I48.0 - PAROXYSMAL ATRIAL FIBRILLATION SNOMED Code(s): 799969363 (4) COPD (chronic obstructive pulmonary disease) Current Visit: No Status: Acute Code(s): J44.9 - CHRONIC OBSTRUCTIVE PULMONARY DISEASE, UNSPECIFIED SNOMED Code(s): 30973483 (5) Morbid obesity with BMI 43, adult Current Visit: No Status: Acute Code(s): E66.01 - MORBID (SEVERE) OBESITY DUE TO EXCESS CALORIES SNOMED Code(s): 056314630 (6) Lymphedema Current Visit: Yes Status: Acute Code(s): I89.0 - LYMPHEDEMA, NOT ELSEWHERE CLASSIFIED SNOMED Code(s): 070559419 (7) Urinary tract infection ruled out Current Visit: No Status: Acute Code(s): N39.0 - URINARY TRACT INFECTION, SITE NOT SPECIFIED SNOMED Code(s): 80197483 (8) chronic diastolic CHF (9) valvular heart disease Plan: Continue on current medication regime ,monitoring and symptomatic treatment. Orthostatic vital signs every shift.Remote telemetry.cardiology evaluation in place with recommendations pending .Diuretics as per cardiology. Discharge planning in progress for tomorrow. The impression and plan of care has been dictated as directed. : I performed a history and examination of this patient, discussed the same with the dictator. I agree with the dictator's note ,documented as a scribe. Any additional findings or plans will be noted.
[2019-11-20 17:28] LABS: Glucose,Whole Blood 112 mg/dL (75-99)
[2019-11-20 20:46] LABS: Glucose,Whole Blood 134 mg/dL (75-99)
[2019-11-21] MEDS: LEVOTHYROXINE 100 MCG TAB PO SCH (05:37)
[2019-11-21 06:49] LABS: Glucose,Whole Blood 87 mg/dL (75-99)
[2019-11-21 07:32] LABS: Basophils # (A) 0.1 k/uL (0-0.2); Basophils % (A) 1 %; Eosinophils # (A) 0.2 k/uL (0-0.7); Eosinophils % (A) 2 %; HCT 36.4 % (34.0-46.0); HGB 11.3 gm/dL (11.4-16.0); Lymphocytes # (A) 1.1 k/uL (1.0-4.8); Lymphocytes % (A) 11 %; MCHC 31.1 g/dL (31.0-37.0); MCV 93.2 fL (80.0-100.0); Mean Platelet Volume 7.3; Monocytes # (A) 0.7 k/uL (0-1.0); Monocytes % (A) 8 %; Neutrophils # (A) 7.6 k/uL (1.3-7.7); Neutrophils % (A) 77 %; Platelet Count 283 k/uL (150-450); WBC 9.8 k/uL (3.8-10.6)
[2019-11-21 07:45] LABS: African American GFR (CKD) >90 (>60 ml/min/1.73 sqM); Anion Gap 3 mmol/L; Blood Urea Nitrogen 8 mg/dL (7-17); Calcium 7.7 mg/dL (8.4-10.2); Carbon Dioxide 39 mmol/L (22-30); Chloride 96 mmol/L (98-107); Glucose 72 mg/dL (74-99); Non-African American GFR(CKD) 88 (>60 ml/min/1.73 sqM); Potassium 3.6 mmol/L (3.5-5.1); Sodium 138 mmol/L (137-145)
[2019-11-21] MEDS: FUROSEMIDE 40 MG TAB PO SCH ×2 (08:46→21:38)
[2019-11-21] MEDS: POTASSIUM CHLORIDE ER 10 MEQ TAB.ER.PRT PO SCH ×2 (08:46→21:37)
[2019-11-21] MEDS: MONTELUKAST 10 MG TAB PO SCH (08:46)
[2019-11-21] MEDS: METOPROLOL TARTRATE 25 MG TAB PO SCH ×2 (08:46→21:37)
[2019-11-21] MEDS: APIXABAN 5 MG TAB PO SCH ×2 (08:46→21:38)
[2019-11-21] MEDS: PRAVASTATIN SODIUM 20 MG TAB PO SCH (08:46)
[2019-11-21 11:34] LABS: Glucose,Whole Blood 108 mg/dL (75-99)
[2019-11-21] MEDS ORDERED: IPRATROPIUM-ALBUTEROL 3 ML NEB INHALATION PRN (12:57)
--- NOTE | 2019-11-21 15:18 | P.PN ---
Subjective Progress Note Date: 11/21/19 HISTORY OF PRESENTING ILLNESS This is a pleasant 79-year-old female past medical history significant for accidentally atrial fibrillation on long-term anticoagulation status post cardioversion, dyslipidemia, infective endocarditis, hypertension, diabetes mellitus, COPD, pulmonary hypertension, obstructive sleep apnea, valvular heart disease and morbid obesity. She does not follow regularly in the office. In [address] Negro. We have been asked to see in consultation for syncope. She states yesterday she was attempting to change her nightgown and her legs suddenly became very weak and she fell to the floor. She denies feeling dizzy or lightheaded prior to falling. She denies loss of consciousness. She denies chest pain, shortness of breath, nausea, vomiting, diaphoresis or palpitations. She is seen and examined sitting up in the chair in no acute distress. DIAGNOSTICS EKG reveals sinus mechanism heart rate of 77 with poor R-wave progression. Chest xray basilar subsegmental atelectatic changes with persistent elevation of the right hemidiaphragm. Laboratory reviewed, WBC on admission 13.1 repeat this morning 9.6, hemoglobin 11.5, platelets 276, sodium 136, potassium 3.7, creatinine 0.61. Current cardiac medications include Lopressor 25 mg twice a day, pravastatin 20 mg daily, Eliquis 5 mg twice a day, Lasix 40 mg twice a day and potassium supplementation. Most recent echocardiogram obtained September 2019 reveals preserved LV systolic function with ejection fraction 55-60%, severely dilated left atrium, moderate aortic stenosis with a mean gradient of 16 mmHg, moderate to severe mitral regurgitation, mild to moderate mitral stenosis with a mitral valve area of 2.2 cm, severe tricuspid regurgitation and severe pulmonary hypertension with RVSP of 82 mmHg. 11/20: Patient denies any new complaints. She states she has been very weak and her legs are extremely weak. She has had no arrhythmias overnight and telemetry will be discontinued. Echocardiogram reveals an EF of 55-60%, LA dilated at greater than 40, mild aortic sclerosis, mild aortic stenosis, mild aortic regurgitation, moderate to severe pulmonary hypertension, RVSP 62, [id number] rate mitral regurgitation. Repeat blood work reveals hemoglobin 11.3, BUN 8 and creatinine 0.57. Chloride 96 and CO2 39. REVIEW OF SYSTEMS At the time of my exam: CONSTITUTIONAL: Denies fever or chills. CARDIOVASCULAR: Denies chest pain, shortness of breath, orthopnea, PND or palpitations. RESPIRATORY: Denies cough. GASTROINTESTINAL: Denies abdominal pain, diarrhea, constipation, nausea or vom iting. MUSCULOSKELETAL: Denies myalgias. NEUROLOGIC: Denies numbness, tingling or weakness. ENDOCRINE: Denies fatigue, weight change, polydipsia or polyurina. GENITOURINARY: Denies burning, hematuria or urgency with micturation. HEMATOLOGIC: Denies history of anemia or bleeding. PHYSICAL EXAMINATION Blood pressure 115/65, heart rate 66, afebrile, pulse ox 91% on 2 L nasal cannula. CONSTITUTIONAL: No apparent distress. HEENT: Head is normocephalic. Pupils are equal, round. Sclerae anicteric. Mucous membranes of the mouth are moist. No JVD. No carotid bruit. CHEST EXAMINATION: Lungs are clear to auscultation. No chest wall tenderness is noted on palpation or with deep breathing. HEART EXAMINATION: Regular rate and rhythm. S1, S2 heard. Systolic ejection murmur at the base and murmur of MR at the apex, no gallops or rub. ABDOMEN: Soft, nontender. Positive bowel sounds. EXTREMITIES: 2+ peripheral pulses, significant discoloration and scaling of the lower extremity skin with trace edema noted bilaterally and no calf tenderness. NEUROLOGIC EXAMINATION: Patient is awake, alert and oriented x3. ASSESSMENT Near syncope and fall, no LOC Paroxysmal atrial fibrillation on long-term anticoagulation maintaining sinus mechanism Valvular heart disease Diabetes mellitus Hypertension COPD Pulmonary hypertension Obstructive sleep apnea Morbid obesity, BMI 43 PLAN Echocardiogram reviewed No arrhythmias have been identified Weakness could be related to general debility overall. No evidence to suggest cardiac etiology thus far. Thank you kindly for this consultation. Nurse Practitioner note has been reviewed, I agree with a documented findings and plan of care. Patient was seen and examined. Objective - Vital Signs Vital signs: Vital Signs Temp 98.6 F 11/21/19 07:00 Pulse 74 11/21/19 07:00 Resp 16 11/21/19 07:00 BP 112/65 11/21/19 07:00 Pulse Ox 92 L 11/21/19 07:00 Intake & Output 11/20/19 11/21/19 11/21/19 18:59 06:59 18:59 Intake Total 100 300 Output Total 2100 Balance 100 -1800 Intake: IV 150 Sodium Chloride 0.9% 1, 150 000 ml @ 75 mls/hr IV . [id number] [facility] Rx#:[id number] Intake, IV Titration 100 150 Amount Sodium Chloride 0.9% 1, 100 000 ml @ 75 mls/hr IV . [id number] [facility] Rx#:[id number] cefTRIAXone 1 gm In 100 50 Sodium Chloride 0.9% 50 ml @ 100 mls/hr IVPB Q24HR [facility] Rx#:[id number] Output: Urine 2100 Other: Voiding Method Diaper Incontinent - Labs CBC & Chem 7: 11/21/19 06:10 11/21/19 06:10 Labs: Abnormal Lab Results - Last 24 Hours (Table) 11/20/19 11/20/19 11/21/19 Range/Units 17:25 20:44 06:10 Hgb 11.3 L (11.4-16.0) gm/dL Chloride (98-107) mmol/L Carbon Dioxide (22-30) mmol/L Glucose (74-99) mg/dL POC Glucose (mg/dL) 112 H 134 H (75-99) mg/dL Calcium (8.4-10.2) mg/dL 11/21/19 11/21/19 Range/Units 06:10 11:30 Hgb (11.4-16.0) gm/dL Chloride 96 L (98-107) mmol/L Carbon Dioxide 39 H (22-30) mmol/L Glucose 72 L (74-99) mg/dL POC Glucose (mg/dL) 108 H (75-99) mg/dL Calcium 7.7 L (8.4-10.2) mg/dL
[2019-11-21 16:50] LABS: Glucose,Whole Blood 113 mg/dL (75-99)
[2019-11-21 20:09] LABS: Glucose,Whole Blood 127 mg/dL (75-99)
[2019-11-22] MEDS: LEVOTHYROXINE 100 MCG TAB PO SCH (05:06)
[2019-11-22 06:55] LABS: Glucose,Whole Blood 104 mg/dL (75-99)
[2019-11-22 07:50] LABS: Basophils # (A) 0.1 k/uL (0-0.2); Basophils % (A) 1 %; Eosinophils # (A) 0.2 k/uL (0-0.7); Eosinophils % (A) 2 %; HGB 11.8 gm/dL (11.4-16.0); Lymphocytes # (A) 1.1 k/uL (1.0-4.8); Lymphocytes % (A) 11 %; MCH 29.8 pg (25.0-35.0); MCHC 31.9 g/dL (31.0-37.0); MCV 93.2 fL (80.0-100.0); Mean Platelet Volume 7.2; Monocytes # (A) 0.7 k/uL (0-1.0); Monocytes % (A) 7 %; Neutrophils # (A) 7.5 k/uL (1.3-7.7); Neutrophils % (A) 78 %; Platelet Count 270 k/uL (150-450); RBC 3.97 m/uL (3.80-5.40); RDW 13.9 % (11.5-15.5); WBC 9.7 k/uL (3.8-10.6)
[2019-11-22] MEDS: APIXABAN 5 MG TAB PO SCH ×2 (08:38→20:25)
[2019-11-22] MEDS: MONTELUKAST 10 MG TAB PO SCH (08:38)
[2019-11-22] MEDS: FUROSEMIDE 40 MG TAB PO SCH ×2 (08:38→20:25)
[2019-11-22] MEDS: POTASSIUM CHLORIDE ER 10 MEQ TAB.ER.PRT PO SCH ×2 (08:38→20:25)
[2019-11-22] MEDS: METOPROLOL TARTRATE 25 MG TAB PO SCH ×2 (08:38→20:25)
[2019-11-22] MEDS: PRAVASTATIN SODIUM 20 MG TAB PO SCH (08:38)
--- NOTE | 2019-11-22 11:26 | PN ---
PROGRESS NOTE Nicole is an 79-year-old lady with history of atrial fibrillation, hypertension, dyslipidemia, infective endocarditis, who presented to hospital with a near syncopal event. This morning, she is doing well. Denies any chest pain or difficulty in breathing. Has history of valvular heart disease, paroxysmal atrial fibrillation. An echocardiogram on this admission revealed normal LV systolic function, mild aortic stenosis and moderate to severe pulmonary hypertension. EXAM: Heart rate is 65 beats per minute. Blood pressure is 120/70, respiratory rate 18. O2 saturation is 95% on room air on 2 L. Chest exam reveals good air entry bilaterally. Heart exam reveals first and second heart sounds. No gallop. Has an ejection systolic murmur in the aortic area. Abdomen soft. Exam of extremities did not reveal any edema. Peripheral pulses are felt. LABS: Show a hemoglobin of 11.8, platelet count is 270. Potassium is 3.6. Creatinine is 0.5. ASSESSMENT: 1. Paroxysmal atrial fibrillation. 2. Near syncope. 3. Hypertension. 4. Valvular heart disease. PLAN: Patient is doing well. We will continue current medications including Eliquis, Lasix, Synthroid, Lopressor, K-Dur, Pravachol. MMODL / IJN: [id number] /
[2019-11-22 11:59] LABS: Glucose,Whole Blood 105 mg/dL (75-99)
[2019-11-22 17:08] LABS: Glucose,Whole Blood 127 mg/dL (75-99)
--- NOTE | 2019-11-22 20:17 | P.PN ---
Subjective Progress Note Date: 11/21/19 Principal diagnosis: Near syncope and collapse Nicole Goldsmith is an 79-year-old female with past medical history of atrial fibrillation, chronic diastolic CHF, lower extremity lymphedema, recently discharged from [facility] who presented to the emergency department after collapsing at home yesterday. She states she was standing up out of her bed when she began to feel lightheaded and woozy, and then proceeded to fall to the ground. She denies any loss of consciousness or hitting her head. Patient was brought into the emergency department by her daughter for evaluation of this event. She states this is been happening more frequently over the past few months and this is her fourth episode in that timeframe. She denies any numbness or tingling, chest pain, palpitations, shortness of breath, or dizziness. She denies dysuria. She states she has not been taking her Lasix regularly as it causes her to be incontinent. On presentation her vitals were stable, labs significant for WBC 13k, lactate 1.7, EKG normal sinus rhythm. Chest x-ray, hip x-ray negative for acute fracture. 11/20/2019 status post IV fluid hydration. Negative for orthostatic hypotension this morning. Denies lightheadedness, dizziness or focal deficits. Denies chest pain, palpitations or shortness of breath. Consuming 75% on diet with no nausea or vomiting. Cardiology consult in place with recommendations pending. 11/21/2019 Patient denied any complaints of chest pain or shortness of breath. Patient is unable to get up by herself and feels very weak. Patient states that she used to walk with a walker. Otherwise tolerating oral diet. Did have a bowel movement. No arrhythmias noted overnight and telemetry has been discontinued. 2D echocardiogram showed ejection fraction 55 to 60%, LA dilated to greater than 40 and mild aortic sclerosis, mild aortic stenosis and mild aortic regurgitation. Moderate to severe pulmonary hypertension with right ventricular systolic pressure 62 and mild to moderate mitral regurgitation. Laboratory data showed a WBC is 9.8, hemoglobin 11.3 and platelets 283 Sodium 138, chloride 96 and bicarb level is 39 BUN 18 creatinine 0.57 Current medications reviewed. Objective - Vital Signs Vital signs: Vital Signs Temp 98.6 F 11/21/19 07:00 Pulse 74 11/21/19 07:00 Resp 16 11/21/19 07:00 BP 112/65 11/21/19 07:00 Pulse Ox 92 L 11/21/19 07:00 Intake & Output 11/20/19 11/21/19 11/21/19 18:59 06:59 18:59 Intake Total 100 300 Output Total 2100 Balance 100 -1800 Intake: IV 150 Sodium Chloride 0.9% 1, 150 000 ml @ 75 mls/hr IV . [id number] [facility] Rx#:[id number] Intake, IV Titration 100 150 Amount Sodium Chloride 0.9% 1, 100 000 ml @ 75 mls/hr IV . [id number] [facility] Rx#:[id number] cefTRIAXone 1 gm In 100 50 Sodium Chloride 0.9% 50 ml @ 100 mls/hr IVPB Q24HR [facility] Rx#:[id number] Output: Urine 2100 Other: Voiding Method Diaper Incontinent - Exam - Exam Gen.: Sitting up in bed, no acute distress HEENT: Normocephalic, atraumatic, mucous membranes moist Neck: Supple, no thyromegaly, no JVD CV: Regular rate and rhythm, systolic murmur. Pulses 2+ Lungs: Normal effort, clear throughout Abdomen: Soft, nontender, nondistended, bowel sounds present Extremities: Bilateral lower extremities 3+ lymphedema, dry, scaling, no warmth or open wounds. Neuro: Alert and oriented 3, no focal deficit Skin: Warm and dry - Labs CBC & Chem 7: 11/22/19 06:21 11/21/19 06:10 Labs: Abnormal Lab Results - Last 24 Hours (Table) 11/20/19 11/20/19 11/21/19 Range/Units 17:25 20:44 06:10 Hgb 11.3 L (11.4-16.0) gm/dL Chloride (98-107) mmol/L Carbon Dioxide (22-30) mmol/L Glucose (74-99) mg/dL POC Glucose (mg/dL) 112 H 134 H (75-99) mg/dL Calcium (8.4-10.2) mg/dL 11/21/19 Range/Units 06:10 Hgb (11.4-16.0) gm/dL Chloride 96 L (98-107) mmol/L Carbon Dioxide 39 H (22-30) mmol/L Glucose 72 L (74-99) mg/dL POC Glucose (mg/dL) (75-99) mg/dL Calcium 7.7 L (8.4-10.2) mg/dL Assessment and Plan Assessment: Near syncope and collapse secondary to Hypotension and volume depletion along with medical debility. Ruled out arrhythmia. Paroxysmal atrial fibrillation currently maintaining sinus rhythm. On anticoagulation. Orthostatic hypotension resolved Hypertension Diabetes type 2 COPD not in exacerbation Morbid obesity BMI 43.0 Chronic bilateral lower extremity lymphedema and venous stasis changes Valvular heart disease Pulmonary hypertension Obstructive sleep apnea not on CPAP at home Chronic CHF with diastolic dysfunction Plan: Patient will be continued on telemetry monitoring. Recent 2D echocardiogram report reviewed. Patient will be continued on metoprolol, Eliquis and also on Lasix 40 mg twice daily. Monitor fluid status closely. Patient was encouraged with PT OT and increase oral intake. Cardiology is on board. Further recommendations based on clinical course. Prognosis guarded. Patient may need rehab transfer. Time with Patient: Greater than 30
--- NOTE | 2019-11-22 23:07 | P.PN ---
Subjective Progress Note Date: 11/22/19 Principal diagnosis: Near syncope and collapse Nicole Goldsmith is an 79-year-old female with past medical history of atrial fibrillation, chronic diastolic CHF, lower extremity lymphedema, recently discharged from [facility] who presented to the emergency department after collapsing at home yesterday. She states she was standing up out of her bed when she began to feel lightheaded and woozy, and then proceeded to fall to the ground. She denies any loss of consciousness or hitting her head. Patient was brought into the emergency department by her daughter for evaluation of this event. She states this is been happening more frequently over the past few months and this is her fourth episode in that timeframe. She denies any numbness or tingling, chest pain, palpitations, shortness of breath, or dizziness. She denies dysuria. She states she has not been taking her Lasix regularly as it causes her to be incontinent. On presentation her vitals were stable, labs significant for WBC 13k, lactate 1.7, EKG normal sinus rhythm. Chest x-ray, hip x-ray negative for acute fracture. 11/20/2019 status post IV fluid hydration. Negative for orthostatic hypotension this morning. Denies lightheadedness, dizziness or focal deficits. Denies chest pain, palpitations or shortness of breath. Consuming 75% on diet with no nausea or vomiting. Cardiology consult in place with recommendations pending. 11/21/2019 Patient denied any complaints of chest pain or shortness of breath. Patient is unable to get up by herself and feels very weak. Patient states that she used to walk with a walker. Otherwise tolerating oral diet. Did have a bowel movement. No arrhythmias noted overnight and telemetry has been discontinued. 2D echocardiogram showed ejection fraction 55 to 60%, LA dilated to greater than 40 and mild aortic sclerosis, mild aortic stenosis and mild aortic regurgitation. Moderate to severe pulmonary hypertension with right ventricular systolic pressure 62 and mild to moderate mitral regurgitation. Laboratory data showed a WBC is 9.8, hemoglobin 11.3 and platelets 283 Sodium 138, chloride 96 and bicarb level is 39 BUN 18 creatinine 0.57 11/22/2019 Patient is currently lying in the bed comfortably. Awake alert and oriented x3. Leg swelling seems to be slightly better compared to yesterday. Chau wrapping has been removed. No fever no chills. Patient is tolerating oral diet and did have almond. Monitor labs tomorrow. Patient is being continued on Lasix 40 mg twice daily. Cardiology is on board. Continued on PT OT and possible discharge to rehab. Current medications reviewed. Objective - Vital Signs Vital signs: Vital Signs Temp 98.3 F 11/22/19 13:40 Pulse 79 11/22/19 13:40 Resp 16 11/22/19 13:40 BP 97/57 11/22/19 13:40 Pulse Ox 90 L 11/22/19 13:40 Intake & Output 11/22/19 11/22/19 11/23/19 06:59 18:59 06:59 Output Total 1700 800 Balance -1700 -800 Output: Urine 1700 800 Other: Voiding Method Diaper Incontinent # Bowel Movements 1 - Exam - Exam Gen.: Sitting up in bed, no acute distress HEENT: Normocephalic, atraumatic, mucous membranes moist Neck: Supple, no thyromegaly, no JVD CV: Regular rate and rhythm, systolic murmur. Pulses 2+ Lungs: Normal effort, clear throughout Abdomen: Soft, nontender, nondistended, bowel sounds present Extremities: Bilateral lower extremities 3+ lymphedema, dry, scaling, no warmth or open wounds. Neuro: Alert and oriented 3, no focal deficit Skin: Warm and dry - Labs CBC & Chem 7: 11/22/19 06:21 11/21/19 06:10 Labs: Abnormal Lab Results - Last 24 Hours (Table) 11/21/19 11/22/19 11/22/19 Range/Units 20:08 06:52 11:55 POC Glucose (mg/dL) 127 H 104 H 105 H (75-99) mg/dL 11/22/19 Range/Units 17:04 POC Glucose (mg/dL) 127 H (75-99) mg/dL Assessment and Plan Assessment: Near syncope and collapse secondary to Hypotension and volume depletion along with medical debility. Ruled out arrhythmia. Paroxysmal atrial fibrillation currently maintaining sinus rhythm. On anticoagulation. Orthostatic hypotension resolved Hypertension Diabetes type 2 COPD not in exacerbation Morbid obesity BMI 43.0 Chronic bilateral lower extremity lymphedema and venous stasis changes Valvular heart disease Pulmonary hypertension Obstructive sleep apnea not on CPAP at home Chronic CHF with diastolic dysfunction Plan: Patient will be continued on telemetry monitoring. Recent 2D echocardiogram report reviewed. Patient will be continued on metoprolol, Eliquis and also on Lasix 40 mg twice daily. Monitor fluid status closely. Patient was encouraged with PT OT and increase oral intake. Cardiology is on board. Further recommendations based on clinical course. Prognosis guarded. Patient may need rehab transfer. Time with Patient: Greater than 30
[2019-11-23] MEDS: LEVOTHYROXINE 100 MCG TAB PO SCH (05:16)
[2019-11-23 06:42] LABS: Basophils # (A) 0.1 k/uL (0-0.2); Basophils % (A) 1 %; Eosinophils # (A) 0.3 k/uL (0-0.7); Eosinophils % (A) 3 %; HCT 38.6 % (34.0-46.0); HGB 12.2 gm/dL (11.4-16.0); Hypochromasia Slight; Lymphocytes # (A) 1.1 k/uL (1.0-4.8); Lymphocytes % (A) 11 %; MCH 29.6 pg (25.0-35.0); MCHC 31.5 g/dL (31.0-37.0); Mean Platelet Volume 7.5; Monocytes # (A) 0.8 k/uL (0-1.0); Monocytes % (A) 8 %; Neutrophils # (A) 7.2 k/uL (1.3-7.7); Neutrophils % (A) 75 %; Platelet Count 260 k/uL (150-450); RBC 4.11 m/uL (3.80-5.40); RDW 13.8 % (11.5-15.5); WBC 9.5 k/uL (3.8-10.6)
[2019-11-23 06:49] LABS: African American GFR (CKD) >90 (>60 ml/min/1.73 sqM); Anion Gap 1 mmol/L; Blood Urea Nitrogen 15 mg/dL (7-17); Calcium 8.2 mg/dL (8.4-10.2); Carbon Dioxide 39 mmol/L (22-30); Chloride 95 mmol/L (98-107); Glucose 96 mg/dL (74-99); Non-African American GFR(CKD) 86 (>60 ml/min/1.73 sqM); Potassium 3.8 mmol/L (3.5-5.1); Sodium 135 mmol/L (137-145)
[2019-11-23 07:08] LABS: Glucose,Whole Blood 94 mg/dL (75-99)
[2019-11-23] MEDS: MONTELUKAST 10 MG TAB PO SCH (07:41)
[2019-11-23] MEDS: FUROSEMIDE 40 MG TAB PO SCH ×2 (07:41→20:21)
[2019-11-23] MEDS: PRAVASTATIN SODIUM 20 MG TAB PO SCH (07:41)
[2019-11-23] MEDS: METOPROLOL TARTRATE 25 MG TAB PO SCH ×2 (07:41→20:21)
[2019-11-23] MEDS: APIXABAN 5 MG TAB PO SCH ×2 (07:41→20:21)
[2019-11-23] MEDS: POTASSIUM CHLORIDE ER 10 MEQ TAB.ER.PRT PO SCH ×2 (07:41→20:21)
[2019-11-23 11:31] LABS: Glucose,Whole Blood 118 mg/dL (75-99)
--- NOTE | 2019-11-23 15:54 | P.DS ---
Providers Date of admission: 11/18/19 19:40 Expected date of discharge: 11/23/19 Attending physician: Sriram Palm MD Consults: 11/19/19 14:29 Consult Physician Routine Consulting Provider: Shreyas Corbett Consult Reason/Comments: syncope Do you want consulting provider notified?: Yes Primary care physician: Sriram Palm MD Hospital Course: Final Diagnoses: (1) Near Syncope and collapse secondary to dehydration, hypotension, medical debility. Arrhythmias ruled out as per cardiology. Current Visit: Yes Status: Acute Code(s): R55 - SYNCOPE AND COLLAPSE SNOMED Code(s): 915813366 (2) Orthostatic hypotension , suspected prior to admission, orthostatic vital signs inpatient does not reflect it, resolved Current Visit: Yes Status: Acute Code(s): I95.1 - ORTHOSTATIC HYPOTENSION SNOMED Code(s): 42993453 (3) Paroxysmal A-fib on long-term anticoagulation Current Visit: No Status: Acute Code(s): I48.0 - PAROXYSMAL ATRIAL FIBRILLATION SNOMED Code(s): 721961679 (4) COPD (chronic obstructive pulmonary disease) Current Visit: No Status: Acute Code(s): J44.9 - CHRONIC OBSTRUCTIVE PULMONARY DISEASE, UNSPECIFIED SNOMED Code(s): 12694687 (5) Morbid obesity with BMI 43, adult Current Visit: No Status: Acute Code(s): E66.01 - MORBID (SEVERE) OBESITY DUE TO EXCESS CALORIES SNOMED Code(s): 526076837 (6) Lymphedema, chronic with venous stasis changes Current Visit: Yes Status: Acute Code(s): I89.0 - LYMPHEDEMA, NOT ELSEWHERE CLASSIFIED SNOMED Code(s): 257612125 (7) Urinary tract infection ruled out Current Visit: No Status: Acute Code(s): N39.0 - URINARY TRACT INFECTION, SITE NOT SPECIFIED SNOMED Code(s): 31326387 (8) chronic diastolic CHF (9) valvular heart disease (10) obstructive sleep apnea, not on CPAP at home. Hospital course:Nicole Goldsmith is an 79-year-old female with past medical history of atrial fibrillation, chronic diastolic CHF, lower extremity lymphedema, [facility] who presented to the emergency department after collapsing at home yesterday. She states she was standing up out of her bed when she began to feel lightheaded and woozy, and then proceeded to fall to the ground. She denies any loss of consciousness or hitting her head. Patient was brought into the emergency department by her daughter for evaluation of this event. She states this is been happening more frequently over the past few months and this is her fourth episode in that timeframe. She denies any numbness or tingling, chest pain, palpitations, shortness of breath, or dizziness. She denies dysuria. She states she has not been taking her Lasix regularly as it causes her to be incontinent. On presentation her vitals were stable, labs significant for WBC 13k, lactate 1.7, EKG normal sinus rhythm. Chest x-ray, hip x-ray negative for acute fracture. 11/20/2019 status post IV fluid hydration. Negative for orthostatic hypotension this morning. Denies lightheadedness, dizziness or focal deficits. Denies chest pain, palpitations or shortness of breath. Consuming 75% on diet with no nausea or vomiting. Cardiology consult in place with recommendations pending. Significant clinical improvement, cleared by cardiology for discharge. Patient will be discharged to [facility], in a stable condition with guarded prognosis pending authorization. Please refer to EMR for further details. The impression and plan of care has been dictated as directed. : I performed a history and examination of this patient, discussed the same with the dictator. I agree with the dictator's note ,documented as a scribe. Any additional findings or plans will be noted. Patient Condition at Discharge: Stable Plan - Discharge Summary Discharge Rx Participant: No New Discharge Prescriptions: New Ipratropium-Albuterol Nebulize [Duoneb 0.5 mg-3 mg/3 ml Soln] 3 ml INHALATION RT-TID PRN ml PRN Reason: Shortness Of Breath Or Wheezing Acetaminophen Tab [Tylenol] 650 mg PO Q6H PRN tab PRN Reason: MILD PAIN OR FEVER>100.5 Continue Apixaban [Eliquis] 5 mg PO BID tab Metoprolol Tartrate [Lopressor] 25 mg PO BID tab Pravastatin Sodium [Pravachol] 20 mg PO DAILY Montelukast [Singulair] 10 mg PO DAILY Levothyroxine Sodium [Synthroid] 100 mcg PO DAILY SILVER sulfADIAZINE Cream [Silvadene 1% Cream] 1 applic TOPICAL HS PRN PRN Reason: apply to legs Potassium Chloride ER [K-Dur 10] 10 meq PO BID Furosemide [Lasix] 40 mg PO BID Fluticasone Propion/Salmeterol [Fluticasone-Salmeterol 250-50] 1 puff INHALATION RT-BID Discharge Medication List Apixaban [Eliquis] 5 mg PO BID tab 07/07/18 [Rx] Metoprolol Tartrate [Lopressor] 25 mg PO BID tab 07/07/18 [Rx] Levothyroxine Sodium [Synthroid] 100 mcg PO DAILY 10/05/19 [History] Montelukast [Singulair] 10 mg PO DAILY 10/05/19 [History] Pravastatin Sodium [Pravachol] 20 mg PO DAILY 10/05/19 [History] Fluticasone Propion/Salmeterol [Fluticasone-Salmeterol 250-50] 1 puff INHALATION RT-BID 11/18/19 [History] Furosemide [Lasix] 40 mg PO BID 11/18/19 [History] Potassium Chloride ER [K-Dur 10] 10 meq PO BID 11/18/19 [History] SILVER sulfADIAZINE Cream [Silvadene 1% Cream] 1 applic TOPICAL HS PRN 11/18/19 [History] Acetaminophen Tab [Tylenol] 650 mg PO Q6H PRN tab 11/23/19 [Rx] Ipratropium-Albuterol Nebulize [Duoneb 0.5 mg-3 mg/3 ml Soln] 3 ml INHALATION RT-TID PRN ml 11/23/19 [Rx] Follow up Appointment(s)/Referral(s): Sriram Palm MD [Primary Care Provider] - 1 Week (After DC from subacute rehab) Activity/Diet/Wound Care/Special Instructions: [facility] ECF, auth pending
[2019-11-23 16:21] LABS: Glucose,Whole Blood 195 mg/dL (75-99)
[2019-11-23 22:13] LABS: Glucose,Whole Blood 121 mg/dL (75-99)
[2019-11-24] MEDS: LEVOTHYROXINE 100 MCG TAB PO SCH (05:17)
[2019-11-24 07:31] LABS: Glucose,Whole Blood 111 mg/dL (75-99)
[2019-11-24 07:43] VITALS: BP 134/63; PULSE 59; RESP 16; TEMP 98
[2019-11-24] MEDS: MONTELUKAST 10 MG TAB PO SCH (08:36)
[2019-11-24] MEDS: POTASSIUM CHLORIDE ER 10 MEQ TAB.ER.PRT PO SCH (08:36)
[2019-11-24] MEDS: PRAVASTATIN SODIUM 20 MG TAB PO SCH (08:36)
[2019-11-24] MEDS: FUROSEMIDE 40 MG TAB PO SCH (08:36)
[2019-11-24] MEDS: APIXABAN 5 MG TAB PO SCH (08:36)
[2019-11-24] MEDS: METOPROLOL TARTRATE 25 MG TAB PO SCH (08:36)
[2019-11-24 11:41] LABS: Glucose,Whole Blood 118 mg/dL (75-99)
== END 2019-11-24 16:36 | DRG 641 ==
LOC: EC 13:02 → 4SSUR 18:00 → OBSVTOIN 19:40
PROVIDERS: ADMIT Family Medicine; ATTEND Family Medicine
DX: E86.0 Dehydration (principal); I50.32 Chronic diastolic (congestive) heart failure; N39.0 Urinary tract infection, site not specified; Z68.43 Body mass index [BMI] 50.0-59.9, adult; I48.92 Unspecified atrial flutter; E66.01 Morbid (severe) obesity due to excess calories; E11.9 Type 2 diabetes mellitus without complications; E78.5 Hyperlipidemia, unspecified; F32.9 Major depressive disorder, single episode, unspecified; F41.9 Anxiety disorder, unspecified; G47.33 Obstructive sleep apnea (adult) (pediatric); I08.3 Combined rheumatic disorders of mitral, aortic and tricuspid valves; I11.0 Hypertensive heart disease with heart failure; I27.20 Pulmonary hypertension, unspecified; I48.0 Paroxysmal atrial fibrillation; I70.0 Atherosclerosis of aorta; I87.8 Other specified disorders of veins; I89.0 Lymphedema, not elsewhere classified; I95.1 Orthostatic hypotension; J44.9 Chronic obstructive pulmonary disease, unspecified; R29.6 Repeated falls; Z11.59 Encounter for screening for other viral diseases; R26.9 Unspecified abnormalities of gait and mobility; R32 Unspecified urinary incontinence; T50.1X6A Underdosing of loop [high-ceiling] diuretics, initial encounter; W18.30XA Fall on same level, unspecified, initial encounter; Z79.01 Long term (current) use of anticoagulants; Z79.890 Hormone replacement therapy; Z79.899 Other long term (current) drug therapy; Z90.710 Acquired absence of both cervix and uterus; Z96.653 Presence of artificial knee joint, bilateral; Z87.01 Personal history of pneumonia (recurrent); Z98.84 Bariatric surgery status; Z83.2 Family history of diseases of the blood and blood-forming organs and certain disorders involving the immune mechanism; Z80.9 Family history of malignant neoplasm, unspecified; Z90.49 Acquired absence of other specified parts of digestive tract; Z88.2 Allergy status to sulfonamides
CPT/HCPCS: 36415; 71046; 72170; 80048; 80053; 81003; 83605; 83735; 84145; 85025; 85610; 85730; 93306; 94640; 99285

== ENCOUNTER 2020-02-25 14:29 | Inpatient (IN) | payer MEDICARE ==
--- NOTE | 2020-02-25 15:03 | ED ---
General Adult HPI - General Chief complaint: Weakness Stated complaint: Weakness Time Seen by Provider: 02/25/20 14:38 Source: patient, EMS, RN notes reviewed, old records reviewed Mode of arrival: EMS Limitations: physical limitation - History of Present Illness Initial comments: 79 female presenting from home with generalized weakness. Patient denies chest pain. Reports a mild dyspnea. No vomiting or diarrhea. Patient has chronic venous stasis, she is mostly bedbound. There is concern over her ability to care for herself. She was transported by EMS. She denies fever. Denies focal numbness or weakness. - Related Data Home Medications Medication Instructions Recorded Confirmed Levothyroxine Sodium [Synthroid] 100 mcg PO DAILY 10/05/19 02/25/20 Montelukast [Singulair] 10 mg PO DIRECTED 10/05/19 02/25/20 Pravastatin Sodium [Pravachol] 20 mg PO DIRECTED 10/05/19 02/25/20 Furosemide [Lasix] 40 mg PO BID 11/18/19 02/25/20 Potassium Chloride ER [K-Dur 10] 20 meq PO BID 11/18/19 02/25/20 Apixaban [Eliquis] 5 mg PO DIRECTED 02/25/20 02/25/20 Metoprolol Tartrate [Lopressor] 25 mg PO DIRECTED 02/25/20 02/25/20 Previous Rx's Medication Instructions Recorded Acetaminophen Tab [Tylenol] 650 mg PO Q6H PRN tab 11/23/19 Allergies Allergy/AdvReac Type Severity Reaction Status Date / Time thallium-201 Allergy Intermediate Rash/Hives Verified 02/25/20 14:53 Sulfa (Sulfonamide AdvReac Severe low Verified 02/25/20 14:53 Antibiotics) hemoglobin aspirin AdvReac Mild blood in Verified 02/25/20 14:53 stool vancomycin AdvReac Rash/Hives Verified 02/25/20 14:53 steri strips AdvReac Mild blisters Uncoded 02/25/20 14:53 skin Review of Systems ROS Statement: Those systems with pertinent positive or pertinent negative responses have been documented in the HPI. ROS Other: All systems not noted in ROS Statement are negative. Past Medical History Past Medical History: Atrial Fibrillation, Atrial Flutter, Asthma, Heart Failure, COPD, Diabetes Mellitus, Hyperlipidemia, Hypertension, Osteoarthritis (OA), Pneumonia, Skin Disorder, Sleep Apnea/CPAP/BIPAP Additional Past Medical History / Comment(s): heart valve problem 1 year ago-not sure of name, no cpap used, anemia, "chocolate" color stool, degenerative arthritis, "Bite" swenson on arms-cause unknown, no current rx for diabetes-diet control, leakage of urine, uses walker History of Any Multi-Drug Resistant Organisms: MRSA Date of last positivie culture/infection: 06/27/18 MDRO Source:: Right Leg Past Surgical History: Appendectomy, Bariatric Surgery, Hysterectomy, Joint Replacement, Orthopedic Surgery, Tonsillectomy Additional Past Surgical History / Comment(s): Picc line insertion/later removed, lap band, right knee replacement x 2 & left knee replaced with revision, L ganglion wirst surg., left ankle ORIF, right trigger thumb surg. juan cataracts Past Anesthesia/Blood Transfusion Reactions: Previous Problems w/ Anesthesia Additional Past Anesthesia/Blood Transfusion Reaction / Comment(s): difficulty waking up @times Past Psychological History: Anxiety, Depression Smoking Status: Never smoker Past Alcohol Use History: Rare Past Drug Use History: None Reported - Past Family History Daughter(s) Family Medical History: Deep Vein Thrombosis (DVT), Pulmonary Embolus Father Family Medical History: Cancer Mother Additional Family Medical History / Comment(s): Mother had hypotension. General Exam Limitations: physical limitation General appearance: alert, in no apparent distress Eye exam: Present: normal appearance, PERRL ENT exam: Present: mucous membranes dry Neck exam: Present: normal inspection. Absent: tenderness, meningismus Respiratory exam: Present: normal lung sounds bilaterally. Absent: respiratory distress, wheezes Cardiovascular Exam: Present: regular rate, normal rhythm GI/Abdominal exam: Present: soft. Absent: distended, tenderness, guarding Extremities exam: Present: pedal edema, other (Chronic venous stasis) Neurological exam: Present: alert, oriented X3, CN II-XII intact. Absent: motor sensory deficit Psychiatric exam: Present: normal affect, normal mood Skin exam: Present: warm Course Vital Signs 02/25/20 02/25/20 02/25/20 14:32 16:17 16:20 Temperature 97.9 F Pulse Rate 82 87 78 Respiratory 18 18 16 Rate Blood Pressure 145/75 145/75 139/74 O2 Sat by Pulse 97 93 L 95 Oximetry EKG Findings - EKG Comments: EKG Findings:: EKG: Normal sinus rhythm, no ST segment elevation, rate of 82, CO interval 172, QRS duration 70, QTC 481 Medical Decision Making - Medical Decision Making 79-year-old female presenting from home, according to EMS very poor living s ituation, question the patient's ability to live at home by herself. She is presenting with generalized weakness. Chest x-rays negative for focal pneumonia. She has a CBC showing leukocytosis of uncertain etiology. She has stable hemoglobin, normal electrolytes, negative urinalysis. She started on IV fluids. She will be admitted for possible placement. I did discuss case with Dr. Palm, who will admit. - Lab Data Result diagrams: 02/25/20 16:20 02/25/20 16:25 Lab Results 02/25/20 02/25/20 02/25/20 Range/Units 15:24 16:20 16:20 WBC 14.1 H (3.8-10.6) k/uL RBC 4.42 (3.80-5.40) m/uL Hgb 12.9 (11.4-16.0) gm/dL Hct 42.4 (34.0-46.0) % MCV 95.9 (80.0-100.0) fL MCH 29.1 (25.0-35.0) pg MCHC 30.4 L (31.0-37.0) g/dL RDW 13.3 (11.5-15.5) % Plt Count 302 (150-450) k/uL Neutrophils % 86 % Lymphocytes % 5 % Monocytes % 7 % Eosinophils % 1 % Basophils % 0 % Neutrophils # 12.1 H (1.3-7.7) k/uL Lymphocytes # 0.7 L (1.0-4.8) k/uL Monocytes # 1.0 (0-1.0) k/uL Eosinophils # 0.2 (0-0.7) k/uL Basophils # 0.1 (0-0.2) k/uL Hypochromasia Slight PT (9.0-12.0) sec INR (<1.2) APTT (22.0-30.0) sec Sodium (137-145) mmol/L Potassium (3.5-5.1) mmol/L Chloride (98-107) mmol/L Carbon Dioxide (22-30) mmol/L Anion Gap mmol/L BUN (7-17) mg/dL Creatinine (0.52-1.04) mg/dL Est GFR (CKD-EPI)AfAm (>60 ml/min/1.73 sqM) Est GFR (CKD-EPI)NonAf (>60 ml/min/1.73 sqM) Glucose (74-99) mg/dL Plasma Lactic Acid Maulik 1.7 (0.7-2.0) mmol/L Calcium (8.4-10.2) mg/dL Magnesium (1.6-2.3) mg/dL Total Bilirubin (0.2-1.3) mg/dL AST (14-36) U/L ALT (4-34) U/L Alkaline Phosphatase (38-126) U/L Troponin I (0.000-0.034) ng/mL Total Protein (6.3-8.2) g/dL Albumin (3.5-5.0) g/dL Urine Color Colorless Urine Appearance Clear (Clear) Urine pH 6.0 (5.0-8.0) Ur Specific Rombauer 1.006 (1.001-1.035) Urine Protein Negative (Negative) Urine Glucose (UA) Negative (Negative) Urine Ketones Negative (Negative) Urine Blood Negative (Negative) Urine Nitrite Negative (Negative) Urine Bilirubin Negative (Negative) Urine Urobilinogen <2.0 (<2.0) mg/dL Ur Leukocyte Esterase Negative (Negative) 02/25/20 02/25/20 02/25/20 Range/Units 16:20 16:25 16:25 WBC (3.8-10.6) k/uL RBC (3.80-5.40) m/uL Hgb (11.4-16.0) gm/dL Hct (34.0-46.0) % MCV (80.0-100.0) fL MCH (25.0-35.0) pg MCHC (31.0-37.0) g/dL RDW (11.5-15.5) % Plt Count (150-450) k/uL Neutrophils % % Lymphocytes % % Monocytes % % Eosinophils % % Basophils % % Neutrophils # (1.3-7.7) k/uL Lymphocytes # (1.0-4.8) k/uL Monocytes # (0-1.0) k/uL Eosinophils # (0-0.7) k/uL Basophils # (0-0.2) k/uL Hypochromasia PT 11.4 (9.0-12.0) sec INR 1.1 (<1.2) APTT 26.8 (22.0-30.0) sec Sodium 138 (137-145) mmol/L Potassium 3.8 (3.5-5.1) mmol/L Chloride 101 (98-107) mmol/L Carbon Dioxide 31 H (22-30) mmol/L Anion Gap 6 mmol/L BUN 14 (7-17) mg/dL Creatinine 0.78 (0.52-1.04) mg/dL Est GFR (CKD-EPI)AfAm 83 (>60 ml/min/1.73 sqM) Est GFR (CKD-EPI)NonAf 72 (>60 ml/min/1.73 sqM) Glucose 92 (74-99) mg/dL Plasma Lactic Acid Maulik (0.7-2.0) mmol/L Calcium 8.6 (8.4-10.2) mg/dL Magnesium 1.9 (1.6-2.3) mg/dL Total Bilirubin 1.4 H (0.2-1.3) mg/dL AST 56 H (14-36) U/L ALT 15 (4-34) U/L Alkaline Phosphatase 79 (38-126) U/L Troponin I <0.012 (0.000-0.034) ng/mL Total Protein 6.0 L (6.3-8.2) g/dL Albumin 3.3 L (3.5-5.0) g/dL Urine Color Urine Appearance (Clear) Urine pH (5.0-8.0) Ur Specific Rombauer (1.001-1.035) Urine Protein (Negative) Urine Glucose (UA) (Negative) Urine Ketones (Negative) Urine Blood (Negative) Urine Nitrite (Negative) Urine Bilirubin (Negative) Urine Urobilinogen (<2.0) mg/dL Ur Leukocyte Esterase (Negative) Disposition Clinical Impression: Generalized weakness, Leukocytosis Disposition: ADMITTED IP TO THIS [facility] Condition: Stable Is patient prescribed a controlled substance at d/c from ED?: No Referrals: Jannette Palm DO [Primary Care Provider] - 1-2 days Decision to Admit Reason: Admit from EC Decision Date: 02/25/20 Decision Time: 17:34
[2020-02-25 15:36] LABS: Appearance,Urine Clear (Clear); Bilirubin,Urine Negative (Negative); Blood,Urine Negative (Negative); Color,Urine Colorless; Glucose,Urine (UA) Negative (Negative); Ketones,Urine Negative (Negative); Leukocyte Esterase,Urine Negative (Negative); Nitrite,Urine Negative (Negative); Protein,Urine Negative (Negative); Specific Gravity,Urine 1.006 (1.001-1.035); Urobilinogen,Urine <2.0 mg/dL (<2.0)
--- NOTE | 2020-02-25 16:20 | XR ---
EXAMINATION TYPE: XR chest 1V portable DATE OF EXAM: 02/25/2020 Comparison: 11/18/2019 and 10/05/2019 Clinical History: 79-year-old female weakness Findings: Heart upper limits of normal in size. Elongation/ectasia of the thoracic aorta. Low lung volumes and crowded vascular markings. Right paratracheal soft tissue prominence is unchanged. Based on patient's 10/05/2019 CT, this seems to correspond to vascular ectasia. No sizable effusion. Stable horizontal o rientation of the lap band. Impression: Hypoventilatory changes. Vascular ectasia along the superior mediastinum. No definite acute process.
[2020-02-25 16:36] LABS: Basophils # (A) 0.1 k/uL (0-0.2); Basophils % (A) 0 %; Eosinophils # (A) 0.2 k/uL (0-0.7); Eosinophils % (A) 1 %; HCT 42.4 % (34.0-46.0); HGB 12.9 gm/dL (11.4-16.0); Hypochromasia Slight; Lymphocytes # (A) 0.7 k/uL (1.0-4.8); Lymphocytes % (A) 5 %; MCH 29.1 pg (25.0-35.0); MCHC 30.4 g/dL (31.0-37.0); MCV 95.9 fL (80.0-100.0); Mean Platelet Volume 6.5; Monocytes % (A) 7 %; Neutrophils # (A) 12.1 k/uL (1.3-7.7); Neutrophils % (A) 86 %; Platelet Count 302 k/uL (150-450); RBC 4.42 m/uL (3.80-5.40); RDW 13.3 % (11.5-15.5); WBC 14.1 k/uL (3.8-10.6)
[2020-02-25 16:42] LABS: INR 1.1 (<1.2); Partial Thromboplastin Time 26.8 sec (22.0-30.0); Prothrombin Time 11.4 sec (9.0-12.0)
[2020-02-25 16:57] LABS: Albumin 3.3 g/dL (3.5-5.0); Calcium 8.6 mg/dL (8.4-10.2); Magnesium 1.9 mg/dL (1.6-2.3); Potassium 3.8 mmol/L (3.5-5.1); Total Bilirubin 1.4 mg/dL (0.2-1.3)
[2020-02-25] MEDS ORDERED: ACETAMINOPHEN TAB 325 MG TAB PO PRN (17:31)
[2020-02-25] MEDS ORDERED: NALOXONE 0.4 MG/ML 1 ML VIAL IV PRN (17:31)
[2020-02-25] MEDS: SODIUM CHLORIDE 0.9% 1,000 ML IV SCH (22:05)
[2020-02-25] MEDS: APIXABAN 5 MG TAB PO SCH (22:11)
[2020-02-26] MEDS: LEVOTHYROXINE 100 MCG TAB PO SCH (06:22)
[2020-02-26] MEDS: POTASSIUM CHLORIDE ER 20 MEQ TAB.ER PO SCH ×2 (09:41→20:05)
[2020-02-26] MEDS: METOPROLOL TARTRATE 25 MG TAB PO SCH ×2 (09:41→20:05)
[2020-02-26] MEDS: SODIUM CHLORIDE 0.9% 1,000 ML IV SCH (09:41)
[2020-02-26] MEDS: APIXABAN 5 MG TAB PO SCH ×2 (09:41→20:05)
--- NOTE | 2020-02-26 11:33 | US ---
EXAMINATION TYPE: US venous doppler duplex LE DATE OF EXAM: 02/26/2020 11:07 AM COMPARISON: NONE CLINICAL HISTORY: swelling. SIDE PERFORMED: TECHNIQUE: The lower extremity deep venous system is examined utilizing real time linear array sonog jose with graded compression, doppler sonography and color-flow sonography. VESSELS IMAGED: External Iliac Vein (EIV) Common Femoral Vein Deep Femoral Vein Greater Saphenous Vein * Femoral Vein Popliteal Vein Small Saphenous Vein * Proximal Calf Veins (* superficial vessels) Gross morbid obesity, immobile patient with interstitial edema, technically difficult, limited study Right Leg: Appears negative for DVT as seen, unable to view distal femora vein and popliteal vein fo r compression views. Left Leg: Appears negative for DVT as seen, unable to view distal femora vein and popliteal vein fo r compression views. IMPRESSION: 1. Bilateral lower extremity ultrasound negative for deep venous thrombosis. 2. There are limitations on this examination including areas unable to be visualized within the dista l femoral vein and popliteal vein compression imaging.
--- NOTE | 2020-02-26 22:22 | P.HPIM ---
History of Present Illness H&P Date: 02/26/20 Chief Complaint: weakness Nicole Goldsmith is an 79 yo F with PMH of atrial fibrillation, diastolic CHF who presented to the ED complaining of progressive weakness and malaise. She feels ehr legs cannot carry her and does not have the energy to leave her bed Pt does live at home alone and per EMS she was unable to perform ADLs at home. She denies fever, chills or shortness of breath. Pt does endorse cough. On presentation vitals stable, labs show WBC 14k, bili 1.4, albumin 3.2. CXR with questionable interstitial infiltrate. Review of Systems All systems: negative Constitutional: Reports malaise, Reports weakness, Denies chills, Denies fever Eyes: denies blurred vision, denies pain Ears, nose, mouth and throat: Denies headache, Denies sore throat Cardiovascular: Denies chest pain, Denies shortness of breath Respiratory: Denies cough Gastrointestinal: Denies abdominal pain, Denies diarrhea, Denies nausea, Denies vomiting Genitourinary: Denies dysuria, Denies hematuria Musculoskeletal: Denies myalgias Integumentary: Denies pruritus, Denies rash Neurological: Denies numbness, Denies weakness Psychiatric: Denies anxiety, Denies depression Endocrine: Denies fatigue, Denies weight change Past Medical History Past Medical History: Atrial Fibrillation, Atrial Flutter, Asthma, Blood Disor familia, Heart Failure, COPD, Diabetes Mellitus, Hyperlipidemia, Hypertension, Osteoarthritis (OA), Pneumonia, Skin Disorder, Sleep Apnea/CPAP/BIPAP Additional Past Medical History / Comment(s): heart valve problem-not sure of name, sleep apnea-no cpap used, anemia, degenerative arthritis, diet controlled dm-patient states does not have dm, urinary incontinence, uses walker. History of Any Multi-Drug Resistant Organisms: MRSA Date of last positivie culture/infection: 06/27/18 MDRO Source:: Right Leg Past Surgical History: Appendectomy, Bariatric Surgery, Hysterectomy, Joint Replacement, Orthopedic Surgery, Tonsillectomy Additional Past Surgical History / Comment(s): Picc line insertion/later removed, lap band, right knee replacement x 2 & left knee replaced with revision, L ganglion wirst surgery, left ankle ORIF, right trigger thumb surgery, bilateral cataracts. Past Anesthesia/Blood Transfusion Reactions: Previous Problems w/ Anesthesia Additional Past Anesthesia/Blood Transfusion Reaction / Comment(s): difficulty waking up Past Psychological History: Anxiety, Depression Additional Psychological History / Comment(s): . Smoking Status: Never smoker Past Alcohol Use History: Rare Past Drug Use History: None Reported - Past Family History Daughter(s) Family Medical History: Deep Vein Thrombosis (DVT), Pulmonary Embolus Father Family Medical History: Cancer Mother Additional Family Medical History / Comment(s): Mother had hypotension. Medications and Allergies Home Medications Medication Instructions Recorded Confirmed Type Levothyroxine Sodium [Synthroid] 100 mcg PO DAILY 10/05/19 02/25/20 History Montelukast [Singulair] 10 mg PO HS 10/05/19 02/26/20 History Pravastatin Sodium [Pravachol] 20 mg PO HS 10/05/19 02/26/20 History Furosemide [Lasix] 40 mg PO BID 11/18/19 02/25/20 History Potassium Chloride ER [K-Dur 10] 20 meq PO BID 11/18/19 02/25/20 History Acetaminophen Tab [Tylenol] 650 mg PO Q6H PRN tab 11/23/19 02/25/20 Rx Apixaban [Eliquis] 5 mg PO BID 02/25/20 02/26/20 History Metoprolol Tartrate [Lopressor] 25 mg PO BID 02/25/20 02/26/20 History Allergies Allergy/AdvReac Type Severity Reaction Status Date / Time thallium-201 Allergy Intermediate Rash/Hives Verified 02/25/20 14:53 Sulfa (Sulfonamide AdvReac Severe low Verified 02/25/20 14:53 Antibiotics) hemoglobin aspirin AdvReac Mild blood in Verified 02/25/20 14:53 stool vancomycin AdvReac Rash/Hives Verified 02/25/20 14:53 steri strips AdvReac Mild blisters Uncoded 02/25/20 14:53 skin Physical Exam Vitals: Vital Signs Temp Pulse Pulse Resp BP Pulse Ox 02/26/20 20:00 76 18 02/26/20 19:51 98.4 F 76 18 95/60 93 L 02/26/20 14:11 98.2 F 75 16 97/62 92 L 02/26/20 08:23 95 02/26/20 07:00 98.1 F 102/69 91 L 02/26/20 00:56 97.4 F L 78 14 114/68 93 L 02/26/20 00:00 16 Intake and Output 02/26/20 02/26/20 02/26/20 06:59 14:59 22:59 Other: Voiding Method Diaper Diaper Diaper Incontinent Incontinent Incontinent # Voids 1 2 # Bowel Movements 2 General: well nourished, well developed, NAD. Vitals reviewed Eyes: PERRL, EOMI, conjunctiva normal HENT: normocephalic, mucus membranes moist Neck: supple, no JVD Lungs: normal respiratory effort, no wheezes. Minimal rhonchi at bases CV: Regular rate and rhythm, no murmur. Peripheral pulses 2+. 2+ edema bilaterally Abdomen: soft, nondistended, no organomegaly Lymph: no cervical or axillary LAD Skin: warm and dry. Neuro: A&Ox3, normal mood and affect Results CBC & Chem 7: 02/25/20 16:20 02/25/20 16:25 Labs: Microbiology - Last 24 Hours (Table) 02/25/20 16:20 Blood Culture - Preliminary Blood No Growth after 24 hours Thrombosis Risk Factor Assmnt - Choose All That Apply Any of the Below Risk Factors Present?: Yes Each Factor Represents 1 point: Obesity (BMI >25) Other Risk Factors: Yes Each Risk Factor Represents 3 Points: Age 75 years or older Other congenital or acquired thrombophilia - If yes, enter type in comment: No Thrombosis Risk Factor Assessment Total Risk Factor Score: 4 Thrombosis Risk Factor Assessment Level: Moderate Risk Assessment and Plan (1) Community acquired pneumonia Current Visit: Yes Status: Acute Code(s): J18.9 - PNEUMONIA, UNSPECIFIED ORGANISM SNOMED Code(s): 268498510 (2) Generalized weakness Current Visit: Yes Status: Acute Code(s): R53.1 - WEAKNESS SNOMED Code(s): 06645833 (3) Leukocytosis Current Visit: Yes Status: Acute Code(s): D72.829 - ELEVATED WHITE BLOOD CELL COUNT, UNSPECIFIED SNOMED Code(s): 289472382 (4) Paroxysmal A-fib Current Visit: No Status: Acute Code(s): I48.0 - PAROXYSMAL ATRIAL FIBRILLATION SNOMED Code(s): 209298651 Plan: 1. Suspected community acquired pneumonia. Start rocephin. Tylenol prn for fever or pain 2. Leg swelling and weakness. Chronic diastolic CHF. Hold lasix today and will resume tomorrow. MIVF. Venous US juan for DVT 3. Paroxysmal atrial fibrillation. Continue metoprolol and eliquis
[2020-02-27] MEDS: LEVOTHYROXINE 100 MCG TAB PO SCH (05:47)
[2020-02-27] MEDS: FUROSEMIDE 40 MG TAB PO SCH ×2 (09:16→22:01)
[2020-02-27] MEDS: APIXABAN 5 MG TAB PO SCH ×2 (09:16→22:01)
[2020-02-27] MEDS: METOPROLOL TARTRATE 25 MG TAB PO SCH (09:16)
[2020-02-27] MEDS: POTASSIUM CHLORIDE ER 20 MEQ TAB.ER PO SCH ×2 (09:17→22:01)
--- NOTE | 2020-02-27 16:05 | PN ---
PROGRESS NOTE I am covering for Dr. Palm. DATE OF SERVICE: 02/27/2020 This 79-year-old woman who was admitted with community-acquired pneumonia, also complaining of generalized weakness. The patient was being treated with IV antibiotics. No chest pain. No palpitations. The patient also had significant weakness especially in both legs also. The venous Doppler was done which showed negative for DVT. No chest pain. No palpitations. Past medical history reviewed. REVIEW OF SYSTEMS: CARDIOVASCULAR SYSTEM: No angina. RESPIRATION as mentioned earlier. GI: As mentioned earlier. : No dysuria. NERVOUS SYSTEM: No numbness or weakness. CURRENT MEDICATIONS: Reviewed and include: 1. Tylenol p.r.n. 2. Eliquis. 3. Rocephin 1 g. 4. Synthroid. 5. Lopressor. 6. Multivitamins. 7. Narcan. 8. Protonix. 9. K-Dur. PHYSICAL EXAMINATION: Alert and oriented times three. Pulse 79, blood pressure 103/66, respirations 17, temperature 98.6, pulse ox 92% on room air. HEENT: Conjunctivae normal. NECK: No JVD. CARDIOVASCULAR: S1, S2 muffled. RESPIRATORY: Breath sounds diminished in the bases. A few scattered rhonchi and crackles. ABDOMEN: Soft, nontender. LEGS: No edema. No swelling. NERVOUS SYSTEM: Significant diffuse weakness and wasting also present. LABS: WBC 14.1, hemoglobin 12.9, and bilirubin is 1.5, AST is 56. ASSESSMENT: 1. Possible community-acquired pneumonia. 2. Generalized weakness. 3. Gait dysfunction. 4. Hyperbilirubinemia, mild. 5. Increased AST. 6. Increased WBC. 7. History of atrial flutter fibrillation. 8. History of asthma. 9. History of congestive heart failure. 10.History of chronic obstructive pulmonary disease. 11.Diabetes mellitus type 2. 12.Hypertension. 13.Hyperlipidemia. 14.History of degenerative joint disease. 15.History of sleep apnea. 16.History of MRSA. 17.History of bariatric surgery. 18.History of PICC line insertion removal. 19.History of degenerative joint disease. 20.History of anxiety, depression. 21.Obesity with body mass of 44.9. 22.FULL CODE. RECOMMENDATIONS AND DISCUSSION: This 79-year-old woman who presented with multiple complex medical issues, we will monitor the patient closely, continue the current medications, management and symptomatic treatment. Otherwise at this time, I recommend continue with the antibiotics. Covid-19 testing. PT/OT evaluation, possible ECF rehab. Guarded prognosis. Further recommendations to follow. Cut down the dose of Lopressor. RANJAN / SAI: [id number] /
[2020-02-27] MEDS: PANTOPRAZOLE 40 MG TABLET PO SCH (16:18)
[2020-02-27] MEDS: SODIUM CHLORIDE 0.9% 1,000 ML IV SCH (19:32)
[2020-02-27] MEDS: METOPROLOL TARTRATE 12.5 MG TAB PO SCH (22:01)
[2020-02-27] MEDS: MONTELUKAST 10 MG TAB PO SCH (22:01)
[2020-02-27 23:06] LABS: Hepatitis A Antibody IgM Non-Reactive (Non-Reactive); Hepatitis B Core IgM Non-Reactive (Non-Reactive); Hepatitis B Surface Antigen Non-Reactive (Non-Reactive); Hepatitis C IgG Antibody Non-Reactive (Non-Reactive)
[2020-02-28] MEDS: SODIUM CHLORIDE 0.9% 1,000 ML IV SCH ×2 (00:40→19:41)
[2020-02-28] MEDS: LEVOTHYROXINE 100 MCG TAB PO SCH (06:12)
[2020-02-28 06:17] LABS: Basophils # (A) 0.1 k/uL (0-0.2); Basophils % (A) 1 %; Eosinophils # (A) 0.3 k/uL (0-0.7); Eosinophils % (A) 3 %; HCT 39.4 % (34.0-46.0); HGB 12.2 gm/dL (11.4-16.0); Hypochromasia Slight; Lymphocytes # (A) 1.1 k/uL (1.0-4.8); Lymphocytes % (A) 11 %; MCH 29.6 pg (25.0-35.0); MCHC 31.1 g/dL (31.0-37.0); MCV 95.2 fL (80.0-100.0); Mean Platelet Volume 6.5; Monocytes # (A) 0.7 k/uL (0-1.0); Monocytes % (A) 7 %; Neutrophils # (A) 7.8 k/uL (1.3-7.7); Neutrophils % (A) 77 %; Platelet Count 288 k/uL (150-450); RBC 4.13 m/uL (3.80-5.40); RDW 13.2 % (11.5-15.5); WBC 10.1 k/uL (3.8-10.6)
[2020-02-28] MEDS: PANTOPRAZOLE 40 MG TABLET PO SCH (08:26)
[2020-02-28] MEDS: FUROSEMIDE 40 MG TAB PO SCH ×2 (08:26→21:52)
[2020-02-28] MEDS: POTASSIUM CHLORIDE ER 20 MEQ TAB.ER PO SCH ×2 (08:26→21:52)
[2020-02-28] MEDS: METOPROLOL TARTRATE 12.5 MG TAB PO SCH ×2 (08:26→21:52)
[2020-02-28] MEDS: APIXABAN 5 MG TAB PO SCH ×2 (08:26→21:52)
[2020-02-28 09:37] LABS: African American GFR (CKD) 94.8 (60.0-200.0); Albumin 2.7 g/dL (3.80-4.90); Albumin/Globulin Ratio 1.42 (1.60-3.17); Anion Gap 4.7 mmol/L (4.00-12.00); BUN/Creat Ratio 17.14 Ratio (12.00-20.00); Carbon Dioxide 33.3 mmol/L (21.6-31.8); Globulin 1.9 g/dL (1.6-3.3); Non-African American GFR(CKD) 81.8 (60.0-200.0); Potassium 3.8 mmol/L (3.5-5.5); Total Bilirubin 0.4 mg/dL (0.2-1.2); Total Protein 4.6 g/dL (6.2-8.2)
[2020-02-28] MEDS: MULTIVITAMINS, THERA 1 EACH TAB PO SCH (11:24)
--- NOTE | 2020-02-28 15:53 | PN ---
PROGRESS NOTE DATE OF SERVICE: 02/28/2020 I am covering for Dr. Palm. This 79-year-old woman admitted with possible community-acquired pneumonia was complaining of significant weakness. PT/OT evaluated the patient. No chest pain. No palpitations. No fever. Patient on broad IV antibiotics. EXAM: Alert and oriented x2. Pulse 78. Blood pressure 104/66, respirations 16, temperature 98 degrees, pulse ox 92% on room air. HEENT: Conjunctivae normal. NECK: No JVD. CARDIOVASCULAR: S1, S2 muffled. RESPIRATIONS: Breath sounds diminished in the bases. A few rhonchi. No crackles. ABDOMEN: Soft. LEGS: No edema. No swelling. NERVOUS SYSTEM: No focal deficits. LABS: CBC and BMP noted. ASSESSMENT: 1. Possible acute community-acquired pneumonia. 2. Generalized weakness. 3. Gait dysfunction. 4. Hyperbilirubinemia, mild. 5. Increased AST. 6. Increased WBC. 7. History of atrial flutter/fibrillation. 8. History of asthma. 9. History of congestive heart failure. 10.Chronic obstructive pulmonary disease. 11.Diabetes mellitus type 2. 12.Hypertension. 13.Hyperlipidemia. 14.History of degenerative joint disease. 15.History of sleep apnea. 16.History of MRSA. 17.History of bariatric surgery. 18.History of PICC line insertion and removal. 19.History of degenerative joint disease. 20.History of anxiety, depression. 21.History of obesity with body mass index 44.9. 22.FULL CODE. RECOMMENDATIONS AND DISCUSSION: I recommend to continue current management and symptomatic treatment, otherwise continue with antibiotics. PT/OT evaluation, possible ECF rehab. Dr. Palm will follow tomorrow. MMODL / IJN: [id number] /
[2020-02-28] MEDS: MONTELUKAST 10 MG TAB PO SCH (21:52)
[2020-02-29] MEDS: SODIUM CHLORIDE 0.9% 1,000 ML IV SCH ×2 (03:04→15:36)
[2020-02-29 06:59] LABS: Basophils # (A) 0.1 k/uL (0-0.2); Basophils % (A) 1 %; Eosinophils # (A) 0.3 k/uL (0-0.7); Eosinophils % (A) 3 %; HCT 41.5 % (34.0-46.0); HGB 13.2 gm/dL (11.4-16.0); Hypochromasia Slight; Lymphocytes # (A) 1.1 k/uL (1.0-4.8); Lymphocytes % (A) 11 %; MCH 30.2 pg (25.0-35.0); MCHC 31.7 g/dL (31.0-37.0); Mean Platelet Volume 6.7; Monocytes # (A) 0.6 k/uL (0-1.0); Monocytes % (A) 6 %; Neutrophils # (A) 7.7 k/uL (1.3-7.7); Neutrophils % (A) 77 %; Platelet Count 291 k/uL (150-450); RBC 4.37 m/uL (3.80-5.40); RDW 13.2 % (11.5-15.5)
[2020-02-29] MEDS: MULTIVITAMINS, THERA 1 EACH TAB PO SCH (08:04)
[2020-02-29] MEDS: POTASSIUM CHLORIDE ER 20 MEQ TAB.ER PO SCH ×2 (08:04→20:21)
[2020-02-29] MEDS: APIXABAN 5 MG TAB PO SCH ×2 (08:04→20:21)
[2020-02-29] MEDS: FUROSEMIDE 40 MG TAB PO SCH ×2 (08:04→20:21)
[2020-02-29] MEDS: PANTOPRAZOLE 40 MG TABLET PO SCH (08:04)
[2020-02-29] MEDS: METOPROLOL TARTRATE 12.5 MG TAB PO SCH ×2 (08:04→20:21)
[2020-02-29] MEDS: LEVOTHYROXINE 100 MCG TAB PO SCH (09:41)
[2020-02-29 10:36] LABS: African American GFR (CKD) 94.8 (60.0-200.0); Albumin/Globulin Ratio 1.58 (1.60-3.17); Anion Gap 7.6 mmol/L (4.00-12.00); BUN/Creat Ratio 17.14 Ratio (12.00-20.00); Calcium 8.3 mg/dL (8.7-10.3); Carbon Dioxide 37.4 mmol/L (21.6-31.8); Globulin 1.9 g/dL (1.6-3.3); Non-African American GFR(CKD) 81.8 (60.0-200.0); Potassium 4.2 mmol/L (3.5-5.5); Total Bilirubin 0.4 mg/dL (0.3-1.2); Total Protein 4.9 g/dL (6.2-8.2)
[2020-02-29 11:44] LABS: Hemoglobin A1C 5.1 % (4.0-6.0)
[2020-02-29] MEDS ORDERED: IPRATROPIUM-ALBUTEROL 3 ML NEB INHALATION PRN (17:15)
--- NOTE | 2020-02-29 17:20 | P.PN ---
Subjective Progress Note Date: 02/29/20 Nicole Goldsmith is an 79 yo F with PMH of atrial fibrillation, diastolic CHF who presented to the ED complaining of progressive weakness and malaise. She feels ehr legs cannot carry her and does not have the energy to leave her bed Pt does live at home alone and per EMS she was unable to perform ADLs at home. She denies fever, chills or shortness of breath. Pt does endorse cough. On presentation vitals stable, labs show WBC 14k, bili 1.4, albumin 3.2. CXR with questionable interstitial infiltrate. 02/29/2020 maintained on IV antibiotics for suspected community-acquired pneumonia. ambulating, continues to have significant weakness. Mild shortness of breath, no cough. Mild confusion earlier this morning, sensorium significantly improved currently. Afebrile. Objective - Vital Signs Vital signs: Vital Signs Temp 97.8 F 02/29/20 15:00 Pulse 79 02/29/20 15:00 Resp 16 02/29/20 15:00 BP 129/73 02/29/20 15:00 Pulse Ox 93 L 02/29/20 15:00 Intake & Output 02/28/20 02/29/20 02/29/20 18:59 06:59 18:59 Intake Total 997 792 Output Total 1900 2100 Balance -903 -2100 792 Weight 103.5 kg Intake: Intake, IV Titration 525 Amount Sodium Chloride 0.9% 1, 525 000 ml @ 75 mls/hr IV . [id number] [facility] Rx#:[id number] Oral 472 792 Output: Urine 1900 2100 Other: Voiding Method Diaper Diaper Diaper Incontinent Incontinent Incontinent # Voids 1 # Bowel Movements 1 1 1 - Exam General: Sitting up in bed, NAD. Vitals reviewed Eyes: PERRL, EOMI, conjunctiva normal HENT: normocephalic, mucus membranes moist Neck: supple, no JVD Lungs: normal respiratory effort, no wheezes. Occasional scattered rhonchi. CV: Regular rate and rhythm, no murmur. Peripheral pulses 2+. Edema improving Abdomen: soft, nondistended, no organomegaly Skin: warm and dry. Neuro: A&Ox3, normal mood and affect - Labs CBC & Chem 7: 02/29/20 06:33 02/29/20 06:33 Labs: Abnormal Lab Results - Last 24 Hours (Table) 02/29/20 Range/Units 06:33 Carbon Dioxide 37.4 H (21.6-31.8) mmol/L Calcium 8.3 L (8.7-10.3) mg/dL Total Protein 4.9 L (6.2-8.2) g/dL Albumin 3.00 L (3.80-4.90) g/dL Albumin/Globulin Ratio 1.58 L (1.60-3.17) g/dL Microbiology - Last 24 Hours (Table) 02/25/20 16:20 Blood Culture - Preliminary Blood No Growth after 72 hours Assessment and Plan Assessment: (1) Community acquired pneumonia Current Visit: Yes Status: Acute Code(s): J18.9 - PNEUMONIA, UNSPECIFIED ORGANISM SNOMED Code(s): 865308182 (2) Generalized weakness, gait dysfunction Current Visit: Yes Status: Acute Code(s): R53.1 - WEAKNESS SNOMED Code(s): 21719369 (3) Leukocytosis Current Visit: Yes Status: Acute Code(s): D72.829 - ELEVATED WHITE BLOOD CELL COUNT, UNSPECIFIED SNOMED Code(s): 582448261 (4) Paroxysmal A-fib Current Visit: No Status: Acute Code(s): I48.0 - PAROXYSMAL ATRIAL FIBRILLATION SNOMED Code(s): 675113447 Plan: Continue on current medication regime ,monitoring and symptomatic treatment. Nebulized bronchodilators added to med regimen. Continue on ant ibiotics. PT/OT. Discharge planning in progress for [facility] and subacute rehab tomorrow. The impression and plan of care has been dictated as directed. : I performed a history and examination of this patient, discussed the same with the dictator. I agree with the dictator's note ,documented as a scribe. Any additional findings or plans will be noted.
[2020-02-29] MEDS: IPRATROPIUM-ALBUTEROL 3 ML NEB INHALATION SCH ×2 (19:50→19:54)
[2020-02-29] MEDS: MONTELUKAST 10 MG TAB PO SCH (20:22)
[2020-03-01] MEDS: LEVOTHYROXINE 100 MCG TAB PO SCH (04:47)
[2020-03-01] MEDS: SODIUM CHLORIDE 0.9% 1,000 ML IV SCH ×2 (06:06→16:45)
[2020-03-01 08:32] LABS: Basophils # (A) 0.1 k/uL (0-0.2); Basophils % (A) 1 %; Eosinophils # (A) 0.3 k/uL (0-0.7); Eosinophils % (A) 3 %; HCT 41.2 % (34.0-46.0); HGB 13.1 gm/dL (11.4-16.0); Hypochromasia Slight; Lymphocytes # (A) 1.3 k/uL (1.0-4.8); Lymphocytes % (A) 13 %; MCH 30.3 pg (25.0-35.0); MCHC 31.8 g/dL (31.0-37.0); MCV 95.2 fL (80.0-100.0); Mean Platelet Volume 7.2; Monocytes # (A) 0.8 k/uL (0-1.0); Monocytes % (A) 8 %; Neutrophils # (A) 7.2 k/uL (1.3-7.7); Neutrophils % (A) 73 %; Platelet Count 297 k/uL (150-450); RBC 4.33 m/uL (3.80-5.40); RDW 13.2 % (11.5-15.5); WBC 9.9 k/uL (3.8-10.6)
--- NOTE | 2020-03-01 09:04 | P.DS ---
Providers Date of admission: 02/29/20 08:17 Expected date of discharge: 03/01/20 Attending physician: Sriram Palm MD Primary care physician: Jannette Palm [facility] Course: Final Diagnoses: (1) Community acquired pneumonia Current Visit: Yes Status: Acute Code(s): J18.9 - PNEUMONIA, UNSPECIFIED ORGANISM SNOMED Code(s): 018253074 (2) Generalized weakness, gait dysfunction Current Visit: Yes Status: Acute Code(s): R53.1 - WEAKNESS SNOMED Code(s): 44475369 (3) Leukocytosis Current Visit: Yes Status: Acute Code(s): D72.829 - ELEVATED WHITE BLOOD CELL COUNT, UNSPECIFIED SNOMED Code(s): 560685551 (4) Paroxysmal A-fib Current Visit: No Status: Acute Code(s): I48.0 - PAROXYSMAL ATRIAL FIBRILLATION SNOMED Code(s): 095332223 Hospital course:Nicole Goldsmith is an 79 yo F with PMH of atrial fibrillation, diastolic CHF who presented to the ED complaining of progressive weakness and malaise. She feels ehr legs cannot carry her and does not have the energy to leave her bed Pt does live at home alone and per EMS she was unable to perform ADLs at home. She denies fever, chills or shortness of breath. Pt does endorse cough. On presentation vitals stable, labs show WBC 14k, bili 1.4, albumin 3.2. CXR with questionable interstitial infiltrate. 02/29/2020 maintained on IV antibiotics for suspected community-acquired pneumonia. ambulating, continues to have significant weakness. Mild shortness of breath, no cough. Mild confusion earlier this morning, sensorium significantly improved currently. Afebrile. Maintained on IV antibiotics. Significant clinical improvement. Patient will be discharged to [facility] subacute rehab today in a stable condition with guarded prognosis. The impression and plan of care has been dictated as directed. : I performed a history and examination of this patient, discussed the same with the dictator. I agree with the dictator's note ,documented as a scribe. Any additional findings or plans will be noted. Patient Condition at Discharge: Stable Plan - Discharge Summary Discharge Rx Participant: No New Discharge Prescriptions: New Cefdinir 300 mg PO Q12HR #8 cap Ipratropium-Albuterol Nebulize [Duoneb 0.5 mg-3 mg/3 ml Soln] 3 ml INHALATION RT-QID ml Ipratropium-Albuterol Nebulize [Duoneb 0.5 mg-3 mg/3 ml Soln] 3 ml INHALATION Q4H PRN ml PRN Reason: Shortness Of Breath Or Wheezing Metoprolol Tartrate [Lopressor] 12.5 mg PO BID tab Acetaminophen Tab [Tylenol] 650 mg PO Q6HR PRN tab PRN Reason: Mild Pain Or Fever > 100.5 Continue Pravastatin Sodium [Pravachol] 20 mg PO HS Montelukast [Singulair] 10 mg PO HS Levothyroxine Sodium [Synthroid] 100 mcg PO DAILY Potassium Chloride ER [K-Dur 10] 20 meq PO BID Furosemide [Lasix] 40 mg PO BID Acetaminophen Tab [Tylenol] 650 mg PO Q6H PRN tab PRN Reason: MILD PAIN OR FEVER>100.5 Apixaban [Eliquis] 5 mg PO BID Discontinued Metoprolol Tartrate [Lopressor] 25 mg PO BID Discharge Medication List Levothyroxine Sodium [Synthroid] 100 mcg PO DAILY 10/05/19 [History] Montelukast [Singulair] 10 mg PO HS 10/05/19 [History] Pravastatin Sodium [Pravachol] 20 mg PO HS 10/05/19 [History] Furosemide [Lasix] 40 mg PO BID 11/18/19 [History] Potassium Chloride ER [K-Dur 10] 20 meq PO BID 11/18/19 [History] Acetaminophen Tab [Tylenol] 650 mg PO Q6H PRN tab 11/23/19 [Rx] Apixaban [Eliquis] 5 mg PO BID 02/25/20 [History] Acetaminophen Tab [Tylenol] 650 mg PO Q6HR PRN tab 03/01/20 [Rx] Cefdinir 300 mg PO Q12HR #8 cap 03/01/20 [Rx] Ipratropium-Albuterol Nebulize [Duoneb 0.5 mg-3 mg/3 ml Soln] 3 ml INHALATION Q4H PRN ml 03/01/20 [Rx] Ipratropium-Albuterol Nebulize [Duoneb 0.5 mg-3 mg/3 ml Soln] 3 ml INHALATION RT-QID ml 03/01/20 [Rx] Metoprolol Tartrate [Lopressor] 12.5 mg PO BID tab 03/01/20 [Rx] Follow up Appointment(s)/Referral(s): Jannette Palm DO [Primary Care Provider] - 1 Week (After discharge from subacute rehab) Booker Hyatt, [NON-STAFF] - As Needed Activity/Diet/Wound Care/Special Instructions: [facility]acute rehab CBC, BMP in 3 days
[2020-03-01] MEDS: IPRATROPIUM-ALBUTEROL 3 ML NEB INHALATION SCH ×3 (09:11→16:37)
[2020-03-01] MEDS: METOPROLOL TARTRATE 12.5 MG TAB PO SCH (09:31)
[2020-03-01] MEDS: PANTOPRAZOLE 40 MG TABLET PO SCH (09:31)
[2020-03-01] MEDS: FUROSEMIDE 40 MG TAB PO SCH (09:31)
[2020-03-01] MEDS: POTASSIUM CHLORIDE ER 20 MEQ TAB.ER PO SCH (09:31)
[2020-03-01] MEDS: APIXABAN 5 MG TAB PO SCH (09:31)
[2020-03-01] MEDS: MULTIVITAMINS, THERA 1 EACH TAB PO SCH (09:31)
[2020-03-01 14:59] VITALS: BP 108/72; PULSE 60; RESP 20; TEMP 97.9
[2020-03-01 15:48] LABS: African American GFR (CKD) 94.8 (60.0-200.0); Anion Gap 9.1 mmol/L (4.00-12.00); BUN/Creat Ratio 18.57 Ratio (12.00-20.00); Calcium 8.4 mg/dL (8.7-10.3); Carbon Dioxide 35.9 mmol/L (21.6-31.8); Non-African American GFR(CKD) 81.8 (60.0-200.0)
== END 2020-03-01 17:24 | DRG 194 ==
LOC: EC 14:29 → 4SSUR 17:31 → OBSVTOIN 02-29 08:17
PROVIDERS: ADMIT Family Medicine; ATTEND Family Medicine
DX: J18.9 Pneumonia, unspecified organism (principal); I50.32 Chronic diastolic (congestive) heart failure; J44.0 Chronic obstructive pulmonary disease with (acute) lower respiratory infection; Z68.41 Body mass index [BMI] 40.0-44.9, adult; R17 Unspecified jaundice; I11.0 Hypertensive heart disease with heart failure; F32.9 Major depressive disorder, single episode, unspecified; F41.9 Anxiety disorder, unspecified; I48.0 Paroxysmal atrial fibrillation; I87.8 Other specified disorders of veins; E66.9 Obesity, unspecified; E78.5 Hyperlipidemia, unspecified; E11.9 Type 2 diabetes mellitus without complications; Z20.828 Contact with and (suspected) exposure to other viral communicable diseases; Z96.653 Presence of artificial knee joint, bilateral; M19.90 Unspecified osteoarthritis, unspecified site; R26.9 Unspecified abnormalities of gait and mobility; G47.30 Sleep apnea, unspecified; Z79.890 Hormone replacement therapy; Z79.899 Other long term (current) drug therapy; Z79.01 Long term (current) use of anticoagulants; Z88.1 Allergy status to other antibiotic agents; Z88.2 Allergy status to sulfonamides; Z88.8 Allergy status to other drugs, medicaments and biological substances; Z91.09 Other allergy status, other than to drugs and biological substances; Z86.14 Personal history of Methicillin resistant Staphylococcus aureus infection; Z90.49 Acquired absence of other specified parts of digestive tract; Z98.890 Other specified postprocedural states; Z98.84 Bariatric surgery status; Z90.710 Acquired absence of both cervix and uterus; Z98.42 Cataract extraction status, left eye; Z98.41 Cataract extraction status, right eye; Z82.49 Family history of ischemic heart disease and other diseases of the circulatory system; Z80.9 Family history of malignant neoplasm, unspecified; Z87.01 Personal history of pneumonia (recurrent)
CPT/HCPCS: 36415; 71045; 80048; 80053; 80074; 81003; 82550; 83036; 83605; 83735; 84145; 84484; 85025; 85610; 85730; 87040; 93005; 93970; 94760; 99285

== ENCOUNTER 2020-04-23 13:33 | Inpatient (IN) | payer MEDICARE ==
[2020-04-23] MEDS ORDERED: SODIUM CHLORIDE 0.9% 1,000 ML IV STA (14:15)
--- NOTE | 2020-04-23 14:18 | ED ---
General Adult HPI - General Source: patient, RN notes reviewed Mode of arrival: ambulatory Limitations: no limitations <Andres Dimas - Last Filed: 04/23/20 14:36> <Frank Blair - Last Filed: 04/23/20 16:04> - General Chief complaint: Weakness Stated complaint: weakness Time Seen by Provider: 04/23/20 13:55 - History of Present Illness Initial comments: Patient is a pleasant 79-year-old female presenting to the emergency Department with complaints of general weakness. Patient states her legs were too weak for her today. Patient did have to lower herself to the ground. Patient denies any injury. Patient was only on the ground for about 10 minutes. Patient has no other complaints. Patient states she has been eating and drinking fine. Patient states her leg edema and erythema are chronic and unchanged. Patient states she normally does have weakness and does normally use a walker. (Andres Cole) - Related Data Home Medications Medication Instructions Recorded Confirmed Levothyroxine Sodium [Synthroid] 100 mcg PO DAILY 10/05/19 02/25/20 Montelukast [Singulair] 10 mg PO HS 10/05/19 02/26/20 Pravastatin Sodium [Pravachol] 20 mg PO HS 10/05/19 02/26/20 Furosemide [Lasix] 40 mg PO BID 11/18/19 02/25/20 Potassium Chloride ER [K-Dur 10] 20 meq PO BID 11/18/19 02/25/20 Apixaban [Eliquis] 5 mg PO BID 02/25/20 02/26/20 Previous Rx's Medication Instructions Recorded Acetaminophen Tab [Tylenol] 650 mg PO Q6H PRN tab 11/23/19 Acetaminophen Tab [Tylenol] 650 mg PO Q6HR PRN tab 03/01/20 Cefdinir 300 mg PO Q12HR #8 cap 03/01/20 Ipratropium-Albuterol Nebulize 3 ml INHALATION Q4H PRN ml 03/01/20 [Duoneb 0.5 mg-3 mg/3 ml Soln] Ipratropium-Albuterol Nebulize 3 ml INHALATION RT-QID ml 03/01/20 [Duoneb 0.5 mg-3 mg/3 ml Soln] Metoprolol Tartrate [Lopressor] 12.5 mg PO BID tab 03/01/20 Allergies Allergy/AdvReac Type Severity Reaction Status Date / Time thallium-201 Allergy Intermediate Rash/Hives Verified 04/23/20 13:43 Sulfa (Sulfonamide AdvReac Severe low Verified 04/23/20 13:43 Antibiotics) hemoglobin aspirin AdvReac Mild blood in Verified 04/23/20 13:43 stool vancomycin AdvReac Rash/Hives Verified 04/23/20 13:43 steri strips AdvReac Mild blisters Uncoded 02/25/20 14:53 skin Review of Systems ROS Other: All systems not noted in ROS Statement are negative. Constitutional: Denies: fever Eyes: Denies: eye pain ENT: Denies: ear pain Respiratory: Denies: cough, dyspnea Cardiovascular: Denies: chest pain Endocrine: Denies: fatigue Gastrointestinal: Denies: abdominal pain Genitourinary: Denies: dysuria Musculoskeletal: Denies: back pain Skin: Reports: as per HPI Neurological: Reports: as per HPI. Denies: headache <Andres Dimas - Last Filed: 04/23/20 14:36> ROS Other: All systems not noted in ROS Statement are negative. <Frank Blair - Last Filed: 04/23/20 16:04> ROS Statement: Those systems with pertinent positive or pertinent negative responses have been documented in the HPI. Past Medical History Past Medical History: Atrial Fibrillation, Atrial Flutter, Asthma, Blood Disorder, Heart Failure, COPD, Diabetes Mellitus, Hyperlipidemia, Hypertension, Osteoarthritis (OA), Pneumonia, Skin Disorder, Sleep Apnea/CPAP/BIPAP Additional Past Medical History / Comment(s): heart valve problem-not sure of name, sleep apnea-no cpap used, anemia, degenerative arthritis, diet controlled dm-patient states does not have dm, urinary incontinence, uses walker. History of Any Multi-Drug Resistant Organisms: MRSA Date of last positivie culture/infection: 06/27/18 MDRO Source:: Right Leg Past Surgical History: Appendectomy, Bariatric Surgery, Hysterectomy, Joint Replacement, Orthopedic Surgery, Tonsillectomy Additional Past Surgical History / Comment(s): Picc line insertion/later removed, lap band, right knee replacement x 2 & left knee replaced with revision, L ganglion wirst surgery, left ankle ORIF, right trigger thumb surgery, bilateral cataracts. Past Anesthesia/Blood Transfusion Reactions: Previous Problems w/ Anesthesia Additional Past Anesthesia/Blood Transfusion Reaction / Comment(s): difficulty waking up Past Psychological History: Anxiety, Depression Smoking Status: Never smoker Past Alcohol Use History: Rare Past Drug Use History: None Reported - Past Family History Daughter(s) Family Medical History: Deep Vein Thrombosis (DVT), Pulmonary Embolus Father Family Medical History: Cancer Mother Additional Family Medical History / Comment(s): Mother had hypotension. <Andres Dimas - Last Filed: 04/23/20 14:36> General Exam Limitations: no limitations General appearance: alert, in no apparent distress Head exam: Present: normocephalic Eye exam: Present: normal appearance, PERRL, EOMI. Absent: nystagmus ENT exam: Present: normal oropharynx Neck exam: Present: normal inspection Respiratory exam: Present: normal lung sounds bilaterally Cardiovascular Exam: Present: regular rate, normal rhythm GI/Abdominal exam: Present: soft. Absent: tenderness Extremities exam: Present: pedal edema. Absent: calf tenderness Neurological exam: Present: alert, CN II-XII intact Expanded Neurological exam: Present: protecting the airway Patient oriented to: Absent: time Speech: Present: fluid speech Cranial nerves: EOM's Intact: Normal Motor strength exam: RUE: 5, LUE: 5, RLE: 3, LLE: 3 Eye Response: (4) open spontaneously Motor Response: (6) obeys commands Verbal Response: (4) confused conversation Psychiatric exam: Present: normal affect, normal mood Skin exam: Present: erythema (Bilateral anterior shins) <Andres Dimas - Last Filed: 04/23/20 14:36> Course <Frank Blair - Last Filed: 04/23/20 16:04> Vital Signs 04/23/20 13:44 Temperature 98 F Pulse Rate 85 Respiratory 18 Rate Blood Pressure 121/72 O2 Sat by Pulse 95 Oximetry - Reevaluation(s) Reevaluation #1: 04/23/20 16:00 Case, H&P, test results and ED management thus far were discussed with Dr. Manzano. He accepts hospital admission. He has no further recommendations at this time. (Frank Blair) EKG Findings - EKG Comments: EKG Findings:: Normal sinus rhythm with sinus arrhythmia rate 88. MA 160. QRS 58. QT 378. QTC 47. Normal axis. Normal QRS. No acute ST change. Motion artifact v1 <Andres Dimas - Last Filed: 04/23/20 14:36> Medical Decision Making - Lab Data Result diagrams: 04/23/20 14:24 04/23/20 14:24 - Radiology Data Radiology results: report reviewed (Noncontrast head CT shows no acute intracranial abnormality; chest x-ray shows a small retrocardiac opacity that may represent atelectasis or developing infiltrate) <Frank Blair - Last Filed: 04/23/20 16:04> - Medical Decision Making Patient was endorsed to me by Dr. Dimas (secondary to shift change). Patient reports feeling generally weak recently. Patient is noted to have bilateral lower leg blanching erythema, warmth and tenderness on exam consistent with cellulitis. Patient also admits to having a mild chronic cough, and she is noted to have a small retrocardiac opacity on chest x-ray, raising the suspicion of possible pneumonia. Patient is afebrile and has a normal lactic acid level. Patient is noted to have mild leukocytosis on laboratory evaluation. The rest of the patient's labs are fairly unremarkable at this time. Patient was given IV antibiotics in the ED. Will admit the patient to the hospital for further evaluation, monitoring and IV antibiotic treatment. Dr. Manzano has accepted hospital admission. (Frank Blair) - Lab Data Lab Results 04/23/20 04/23/20 04/23/20 Range/Units 14:24 14:24 14:24 WBC 12.5 H (3.8-10.6) k/uL RBC 4.61 (3.80-5.40) m/uL Hgb 13.5 (11.4-16.0) gm/dL Hct 42.4 (34.0-46.0) % MCV 92.0 (80.0-100.0) fL MCH 29.3 (25.0-35.0) pg MCHC 31.9 (31.0-37.0) g/dL RDW 13.7 (11.5-15.5) % Plt Count 301 (150-450) k/uL MPV 7.0 Neutrophils % 82 % Lymphocytes % 8 % Monocytes % 7 % Eosinophils % 1 % Basophils % 1 % Neutrophils # 10.3 H (1.3-7.7) k/uL Lymphocytes # 1.0 (1.0-4.8) k/uL Monocytes # 0.9 (0-1.0) k/uL Eosinophils # 0.1 (0-0.7) k/uL Basophils # 0.2 (0-0.2) k/uL PT 10.8 (9.0-12.0) sec INR 1.1 (<1.2) APTT 27.1 (22.0-30.0) sec Sodium 138 (137-145) mmol/L Potassium 4.6 (3.5-5.1) mmol/L Chloride 100 (98-107) mmol/L Carbon Dioxide 33 H (22-30) mmol/L Anion Gap 5 mmol/L BUN 11 (7-17) mg/dL Creatinine 0.74 (0.52-1.04) mg/dL Est GFR (CKD-EPI)AfAm 89 (>60 ml/min/1.73 sqM) Est GFR (CKD-EPI)NonAf 77 (>60 ml/min/1.73 sqM) Glucose 86 (74-99) mg/dL Plasma Lactic Acid Maulik (0.7-2.0) mmol/L Calcium 9.0 (8.4-10.2) mg/dL Magnesium 1.8 (1.6-2.3) mg/dL Total Bilirubin 1.1 (0.2-1.3) mg/dL AST 24 (14-36) U/L ALT 9 (4-34) U/L Alkaline Phosphatase 100 (38-126) U/L Troponin I (0.000-0.034) ng/mL Total Protein 6.3 (6.3-8.2) g/dL Albumin 3.6 (3.5-5.0) g/dL 04/23/20 04/23/20 Range/Units 14:24 14:24 WBC (3.8-10.6) k/uL RBC (3.80-5.40) m/uL Hgb (11.4-16.0) gm/dL Hct (34.0-46.0) % MCV (80.0-100.0) fL MCH (25.0-35.0) pg MCHC (31.0-37.0) g/dL RDW (11.5-15.5) % Plt Count (150-450) k/uL MPV Neutrophils % % Lymphocytes % % Monocytes % % Eosinophils % % Basophils % % Neutrophils # (1.3-7.7) k/uL Lymphocytes # (1.0-4.8) k/uL Monocytes # (0-1.0) k/uL Eosinophils # (0-0.7) k/uL Basophils # (0-0.2) k/uL PT (9.0-12.0) sec INR (<1.2) APTT (22.0-30.0) sec Sodium (137-145) mmol/L Potassium (3.5-5.1) mmol/L Chloride (98-107) mmol/L Carbon Dioxide (22-30) mmol/L Anion Gap mmol/L BUN (7-17) mg/dL Creatinine (0.52-1.04) mg/dL Est GFR (CKD-EPI)AfAm (>60 ml/min/1.73 sqM) Est GFR (CKD-EPI)NonAf (>60 ml/min/1.73 sqM) Glucose (74-99) mg/dL Plasma Lactic Acid Maulik 1.9 (0.7-2.0) mmol/L Calcium (8.4-10.2) mg/dL Magnesium (1.6-2.3) mg/dL Total Bilirubin (0.2-1.3) mg/dL AST (14-36) U/L ALT (4-34) U/L Alkaline Phosphatase (38-126) U/L Troponin I <0.012 (0.000-0.034) ng/mL Total Protein (6.3-8.2) g/dL Albumin (3.5-5.0) g/dL Disposition <Andres Dimas - Last Filed: 04/23/20 14:36> Is patient prescribed a controlled substance at d/c from ED?: No Time of Disposition: 16:00 <Frank Blair - Last Filed: 04/23/20 16:04> Clinical Impression: Generalized weakness, Cellulitis of both lower extremities Narrative: Possible pneumonia (Frank Blair) Disposition: ADMITTED IP TO THIS HOSP Condition: Stable Referrals: Jannette Palm DO [Primary Care Provider] - 1-2 days
[2020-04-23 14:52] LABS: Basophils # (A) 0.2 k/uL (0-0.2); Basophils % (A) 1 %; Eosinophils # (A) 0.1 k/uL (0-0.7); Eosinophils % (A) 1 %; HCT 42.4 % (34.0-46.0); HGB 13.5 gm/dL (11.4-16.0); Lymphocytes % (A) 8 %; MCH 29.3 pg (25.0-35.0); MCHC 31.9 g/dL (31.0-37.0); Monocytes # (A) 0.9 k/uL (0-1.0); Monocytes % (A) 7 %; Neutrophils # (A) 10.3 k/uL (1.3-7.7); Neutrophils % (A) 82 %; Platelet Count 301 k/uL (150-450); RBC 4.61 m/uL (3.80-5.40); RDW 13.7 % (11.5-15.5); WBC 12.5 k/uL (3.8-10.6)
[2020-04-23 15:05] LABS: INR 1.1 (<1.2); Partial Thromboplastin Time 27.1 sec (22.0-30.0); Prothrombin Time 10.8 sec (9.0-12.0)
[2020-04-23 15:10] LABS: Albumin 3.6 g/dL (3.5-5.0); Magnesium 1.8 mg/dL (1.6-2.3); Potassium 4.6 mmol/L (3.5-5.1); Total Bilirubin 1.1 mg/dL (0.2-1.3); Total Protein 6.3 g/dL (6.3-8.2)
--- NOTE | 2020-04-23 15:15 | CT ---
EXAMINATION TYPE: CT brain wo con DATE OF EXAM: 04/23/2020 COMPARISON: None available. HISTORY: Weakness. CT DLP: 1246 mGycm Automated exposure control for dose reduction was used. FINDINGS: There is no acute intracranial hemorrhage, midline shift, hydrocephalus or mass effect. There is mode rate white matter disease or parenchymal volume loss. The paranasal sinuses demonstrate near complete opacification of the sphenoid sinus with internal hyperdensities. The mastoid air cells are adequate ly aerated. The calvarium is intact. IMPRESSION: NO ACUTE INTRACRANIAL ABNORMALITY. CHRONIC MICROVASCULAR ISCHEMIC CHANGES. Chronic appearing sphenoid paranasal sinus disease with internal hyperdensities, which can be seen wi th fungal infection. Recommend clinical correlation.
--- NOTE | 2020-04-23 15:17 | XR ---
EXAMINATION TYPE: XR chest 2V DATE OF EXAM: 04/23/2020 COMPARISON: 02/25/2020. HISTORY: Shortness of breath. TECHNIQUE: Frontal and lateral views of the chest are obtained. FINDINGS: There is small atelectatic opacity. No pleural effusion, or pneumothorax seen. The cardia c silhouette size is within normal limits. The osseous structures are intact. IMPRESSION: Small retrocardiac opacity may represent atelectasis or developing infiltrates.
[2020-04-23] MEDS ORDERED: PIPERACILLIN-TAZOBACTAM 3.375 GM in SODIUM CHLORIDE 0.9% 100 ML IVPB STA (15:39)
[2020-04-23 16:21] LABS: Appearance,Urine Cloudy (Clear); Bacteria,Urine Occasional /hpf; Bilirubin,Urine Negative (Negative); Blood,Urine Small (Negative); Color,Urine Yellow; Glucose,Urine (UA) Negative (Negative); Ketones,Urine Negative (Negative); Leukocyte Esterase,Urine Large (Negative); Nitrite,Urine Negative (Negative); Protein,Urine Trace (Negative); RBC,Urine 17 /hpf (0-5); Specific Gravity,Urine 1.013 (1.001-1.035); Squamous Epithelial Cell,Urine 2 /hpf (0-4); Urobilinogen,Urine <2.0 mg/dL (<2.0); WBC,Urine >182 /hpf (0-5)
[2020-04-23 19:53] LABS: Glucose,Whole Blood 77 mg/dL (75-99)
[2020-04-23] MEDS ORDERED: DEXTROSE 50% SYRINGE 50 ML IVP ONE (19:54)
[2020-04-23] MEDS ORDERED: DEXTROSE 50% SYRINGE 50 ML IVP STA (20:09)
[2020-04-23 21:15] LABS: Glucose,Whole Blood 85 mg/dL (75-99)
--- NOTE | 2020-04-23 22:26 | P.HPIM ---
History of Present Illness This is a pleasant 79 years old female with multiple medical problems including atrial fibrillation, heart failure, COPD, diabetes mellitus, hyperlipidemia, hypertension, osteoarthritis, sleep apnea on CPAP/BiPAP, urine incontinence and uses a walker.Patient was recently discharged from the hospital on 03/01/2020 4 community-acquired pneumonia and generalized weakness and paroxysmal atrial fibrillation. Patient admitted with altered mental status and infection secondary to UTI and possible bilateral leg cellulitis. Patient is poor historian due to her mental status and could not provide information, her sugar was 77 and 85. Vitals are stable, showing mild leukocytosis of 12.5. Rest of the labs including rest of CBC, BMP, INR, liver enzymes are unremarkable. Urine analysis is suspicious of infection CT of the brain: No acute abnormality Chest x-ray: Small retrocardiac opacity may represent atelectasis or developing infiltrates EKG showing normal sinus rhythm with sinus arrhythmia at 88 In the emergency room patient was started on Zosyn Review of Systems CONSTITUTIONAL: No fever, no malaise, no fatigue. HEENT: No recent visual problems or hearing problems. Denied any sore throat. CARDIOVASCULAR: No orthopnea, PND, no palpitations, no syncope. PULMONARY: No shortness of breath, no cough, no hemoptysis. GASTROINTESTINAL: No diarrhea, no nausea, no vomiting, no abdominal pain. Normoactive bowel sounds. NEUROLOGICAL: No headaches, no weakness, no numbness. HEMATOLOGICAL: Denies any bleeding or petechiae. GENITOURINARY: Denies any burning micturition, frequency, or urgency. MUSCULOSKELETAL/RHEUMATOLOGICAL: Denies any joint pain, swelling, or any muscle pain. ENDOCRINE: Denies any polyuria or polydipsia. Past Medical History Past Medical History: Atrial Fibrillation, Atrial Flutter, Asthma, Blood Disorder, Heart Failure, COPD, Diabetes Mellitus, Hyperlipidemia, Hypertension, Osteoarthritis (OA), Pneumonia, Skin Disorder, Sleep Apnea/CPAP/BIPAP Additional Past Medical History / Comment(s): heart valve problem-not sure of name, sleep apnea-no cpap used, anemia, degenerative arthritis, diet controlled dm-patient states does not have dm, urinary incontinence, uses walker. History of Any Multi-Drug Resistant Organisms: MRSA Date of last positivie culture/infection: 06/27/18 MDRO Source:: Right Leg Past Surgical History: Appendectomy, Bariatric Surgery, Hysterectomy, Joint Replacement, Orthopedic Surgery, Tonsillectomy Additional Past Surgical History / Comment(s): Picc line insertion/later removed, lap band, right knee replacement x 2 & left knee replaced with re vision, L ganglion wirst surgery, left ankle ORIF, right trigger thumb surgery, bilateral cataracts. Past Anesthesia/Blood Transfusion Reactions: Previous Problems w/ Anesthesia Additional Past Anesthesia/Blood Transfusion Reaction / Comment(s): difficulty waking up Past Psychological History: Anxiety, Depression Smoking Status: Never smoker Past Alcohol Use History: Rare Past Drug Use History: None Reported - Past Family History Daughter(s) Family Medical History: Deep Vein Thrombosis (DVT), Pulmonary Embolus Father Family Medical History: Cancer Mother Additional Family Medical History / Comment(s): Mother had hypotension. Medications and Allergies Home Medications Medication Instructions Recorded Confirmed Type RX: Levothyroxine Sodium 100 mcg PO DAILY 10/05/19 04/23/20 History [Synthroid] RX: Montelukast [Singulair] 10 mg PO HS 10/05/19 04/23/20 History RX: Pravastatin Sodium [Pravachol] 20 mg PO HS 10/05/19 04/23/20 History RX: Furosemide [Lasix] 40 mg PO BID 11/18/19 04/23/20 History RX: Potassium Chloride ER [K-Dur 20 meq PO BID 11/18/19 04/23/20 History 10] RX: Apixaban [Eliquis] 5 mg PO BID 02/25/20 04/23/20 History RX: Acetaminophen Tab [Tylenol] 650 mg PO Q6HR PRN tab 03/01/20 04/23/20 Rx RX: Metoprolol Tartrate [Lopressor] 12.5 mg PO BID tab 03/01/20 04/23/20 Rx Allergies Allergy/AdvReac Type Severity Reaction Status Date / Time thallium-201 Allergy Intermediate Rash/Hives Verified 04/23/20 17:27 Sulfa (Sulfonamide AdvReac Severe low Verified 04/23/20 17:27 Antibiotics) hemoglobin aspirin AdvReac Mild blood in Verified 04/23/20 17:27 stool vancomycin AdvReac Rash/Hives Verified 04/23/20 17:27 steri strips AdvReac Mild blisters Uncoded 02/25/20 14:53 skin Physical Exam Vitals: Vital Signs Temp Pulse Resp BP Pulse Ox 12/12/20 16:29 86 16 116/56 98 04/23/20 13:44 98 F 85 18 121/72 95 Intake and Output 04/23/20 04/23/20 04/23/20 06:59 14:59 22:59 Other: Weight 104.417 kg -GENERAL: The patient is awake but confused, not in any acute distress. Well developed, well nourished. HEENT: Pupils are round and equally reacting to light. EOMI. No scleral icterus. No conjunctival pallor. Normocephalic, atraumatic. No pharyngeal erythema. No thyromegaly. CARDIOVASCULAR: S1 and S2 present. No murmurs, rubs, or gallops. PULMONARY: Chest is clear to auscultation, no wheezing or crackles. ABDOMEN: Soft, nontender, nondistended, normoactive bowel sounds. No palpable organomegaly. MUSCULOSKELETAL: No joint swelling or deformity. -EXTREMITIES: No cyanosis, clubbing, or pedal edema. Some erythema of her legs NEUROLOGICAL: Gross neurological examination did not reveal any focal deficits. SKIN: No rashes. No petechiae Results CBC & Chem 7: 04/23/20 14:24 04/23/20 14:24 Labs: Abnormal Lab Results - Last 24 Hours (Table) 04/23/20 04/23/20 04/23/20 Range/Units 14:24 14:24 16:05 WBC 12.5 H (3.8-10.6) k/uL Neutrophils # 10.3 H (1.3-7.7) k/uL Carbon Dioxide 33 H (22-30) mmol/L Urine Appearance Cloudy H (Clear) Urine Protein Trace H (Negative) Urine Blood Small H (Negative) Ur Leukocyte Esterase Large H (Negative) Urine RBC 17 H (0-5) /hpf Urine WBC >182 H (0-5) /hpf Urine Bacteria Occasional H (None) /hpf Assessment and Plan Assessment: Acute urinary tract infection. Follow-up urine culture possible Bilateral lower extremity cellulitis. Rule out DVT Metabolic encephalopathy secondary to above Abnormal possible small retrocardiac opacity on the chest x-ray, mostly atelectasis rather than pneumonia Hypertension Hyperlipidemia Diabetes mellitus Atrial fibrillationOn Eliquis , Heart failure Osteoarthritis History of sleep apnea on CPAP/BiPAP History of urinary incontinence History of Gait abnormality using her walker Plan: This is a pleasant 79 years old female who presents with infection, mostly UTI less likely cellulitis of the lower extremity. Patient was started on Zosyn. Consult infectious disease was started her on ceftriaxone. Check ultrasound of the lower extremity to rule out DVT Labs and medication were reviewed.. Continue same treatment. Continue with symptomatic treatment. Resume home medication. Monitor lytes and vitals. DVT and GI prophylaxis. Further recommendations depends on the clinical course of the patient DVT prophylaxis: Eliquis GI Prophylaxis: Pepcid PT/OT: Pending Prognosis is guarded
--- NOTE | 2020-04-23 23:26 | US ---
EXAMINATION TYPE: US venous doppler duplex LE DATE OF EXAM: 04/23/2020 11:18 PM COMPARISON: 2019 CLINICAL HISTORY: Rule out DVT. Bilateral leg swelling, edema SIDE PERFORMED: Bilateral TECHNIQUE: The lower extremity deep venous system is examined utilizing real time linear array sonog jose with graded compression, doppler sonography and color-flow sonography. VESSELS IMAGED: Common Femoral Vein Deep Femoral Vein Greater Saphenous Vein * Femoral Vein Popliteal Vein Small Saphenous Vein * Proximal Calf Veins (* superficial vessels) Difficult and limited study due to morbidly obese patient with leg swelling and edema, unable to obta in sagittal images of bilateral popliteal vein due to patient unable to tolerate probe pressure. Right Leg: Visualized portions appear negative for DVT Left Leg: Visualized portions appear negative for DVT IMPRESSION: No sign of deep vein thrombosis in both legs.
[2020-04-24] MEDS: DEXTROSE 5%-0.45% NACL 1,000 ML IV SCH ×2 (01:20→21:53)
[2020-04-24] MEDS: APIXABAN 5 MG TAB PO SCH ×3 (01:20→21:49)
--- NOTE | 2020-04-24 06:26 | CONS ---
CONSULTATION DATE OF SERVICE: 04/23/2020 REASON FOR CONSULTATION: Lower extremity cellulitis, UTI. HISTORY OF PRESENT ILLNESS: The patient is an 79-year-old female presenting to the ER at [facility] today for evaluation of generalized weakness, no energy. The patient mentioned she has been so weak today that she has to lower herself to the ground. The patient denies any fall. No loss of consciousness. The patient was down for about 10 minutes. The patient subsequently has been brought to the ER for further evaluation. Patient did have chronic swelling in the lower extremities. Did have some erythema, but denies any worsening redness to the leg. She did have mild dull aching pain to the leg 3-08/20 with no radiation. Currently no open wound or any drainage. The patient denies having any chest pain or shortness of breath. Minimal cough. No nausea. No abdominal pain. No diarrhea. On arrival to the ER, the patient was afebrile. The patient did have a normal O2 saturation. White count was 12.5 with left shift, no lymphopenia. The patient did have a normal BUN and creatinine. Liver enzymes were normal. In addition, positive UA which is cloudy, more than 182 WBC. Medeiros PCR was negative. Chest x-ray did show small retrocardiac opacity which may represent atelectasis or developing infiltrate. The patient did receive 1 dose of Zosyn in the ER, subsequently has been admitted to the hospital. Infectious Disease was consulted for further management. REVIEW OF SYSTEMS: Positive points have been mentioned in HPI. Rest of systems are negative. PAST MEDICAL HISTORY: Atrial fibrillation, asthma, heart failure, COPD, diabetes mellitus, hypertension, hyperlipidemia, osteoarthritis, pneumonia, sleep apnea. PAST SURGICAL HISTORY: Appendectomy, bariatric surgery, hysterectomy, tonsillectomy, left ankle ORIF and right 2nd thumb surgery. SOCIAL HISTORY: No history of smoking. Occasionally drinks. No drug use. FAMILY HISTORY: Daughter with a history of DVT and PE. Father history of cancer. ALLERGIES: SULFA, ASPIRIN, VANCOMYCIN MEDICATIONS: Zosyn, Eliquis and is getting IV fluids at 75 ml/hour. PHYSICAL EXAMINATION: Her blood pressure 119/70 with a pulse of 90, temperature 99, she is 94% on room. General description is an elderly female lying in bed in no distress. No tachypnea or accessory muscle of respiration use. HEENT: Examination shows no pallor or scleral icterus. Oral mucous membrane is dry. No pharyngeal erythema or thrush. Neck trachea central, no thyromegaly. Lungs unlabored breathing, decreased breath sounds at the base. No wheeze. HEART: S1, S2. Regular rate and rhythm. ABDOMEN: Soft, no tenderness. No guarding or rigidity. Extremities with diffuse swelling, minimal redness, slightly warm, but no open wound or any drainage. Neurological the patient is awake, alert, oriented times three, mood and affect normal. LABS: Hemoglobin 13.5, white count 12.5, BUN of 11, creatinine 0.74. Liver enzymes are normal. Urine is positive. Medeiros PCR negative. DIAGNOSTIC IMPRESSION: 1. Patient admitted to the hospital with generalized weakness, no energy in this patient with likely a component of symptomatic urinary tract infection with significantly positive UA. She did have some cellulitis lower extremity but the patient denies any worsening redness, possible chronic venous stasis dermatitis, though cellulitis from a gram-positive skin nicholas not entirely excluded. 2. Patient has multiple antibiotic allergies. PLAN: 1. We will start the patient on Rocephin 2 grams daily to cover for both UTI as well as cellulitis. 2. Chau wrap to the legs . 3. We will follow on clinical condition and culture to further adjust medication if needed. Thank you for this consultation. Will follow this patient along with you. MMODL / IJN: [id number] / MTDOscar
[2020-04-24 06:43] LABS: Glucose,Whole Blood 107 mg/dL (75-99)
[2020-04-24] MEDS: LEVOTHYROXINE 100 MCG TAB PO SCH (06:58)
[2020-04-24 08:21] LABS: Basophils # (A) 0.1 k/uL (0-0.2); Basophils % (A) 1 %; Eosinophils # (A) 0.1 k/uL (0-0.7); Eosinophils % (A) 1 %; HCT 34.2 % (34.0-46.0); Lymphocytes % (A) 10 %; MCH 30.1 pg (25.0-35.0); MCHC 32.3 g/dL (31.0-37.0); MCV 93.2 fL (80.0-100.0); Mean Platelet Volume 7.2; Monocytes # (A) 0.8 k/uL (0-1.0); Monocytes % (A) 8 %; Neutrophils # (A) 7.6 k/uL (1.3-7.7); Neutrophils % (A) 78 %; Platelet Count 235 k/uL (150-450); RBC 3.66 m/uL (3.80-5.40); RDW 13.8 % (11.5-15.5); WBC 9.7 k/uL (3.8-10.6)
[2020-04-24 08:27] LABS: Albumin 2.4 g/dL (3.5-5.0); Potassium 4.2 mmol/L (3.5-5.1); Total Bilirubin 0.6 mg/dL (0.2-1.3); Total Protein 4.6 g/dL (6.3-8.2)
[2020-04-24] MEDS ORDERED: AZITHROMYCIN 500 MG in SODIUM CHLORIDE 0.9% 250 ML IVPB SCH (10:00)
[2020-04-24] MEDS: FAMOTIDINE 20 MG/2 ML VIAL IV SCH ×2 (10:22→21:49)
[2020-04-24] MEDS: FUROSEMIDE 40 MG TAB PO SCH ×2 (10:23→21:49)
[2020-04-24] MEDS: POTASSIUM CHLORIDE ER 10 MEQ TAB.ER.PRT PO SCH ×2 (10:23→21:49)
--- NOTE | 2020-04-24 10:38 | XR ---
EXAMINATION TYPE: XR chest 1V DATE OF EXAM: 04/24/2020 COMPARISON: 04/23/2020 INDICATION: Short of breath TECHNIQUE: Single frontal view of the chest is obtained. FINDINGS: The heart size is normal. The pulmonary vasculature is normal. The lungs are clear. There is elevation of the right diaphragm. IMPRESSION: 1. No acute pulmonary process.
[2020-04-24 12:26] LABS: Glucose,Whole Blood 86 mg/dL (75-99)
--- NOTE | 2020-04-24 14:12 | P.PN ---
Subjective This is a pleasant 79 years old female with multiple medical problems including atrial fibrillation, heart failure, COPD, diabetes mellitus, hyperlipidemia, hypertension, osteoarthritis, sleep apnea on CPAP/BiPAP, urine incontinence and uses a walker.Patient was recently discharged from the hospital on 03/01/2020 4 community-acquired pneumonia and generalized weakness and paroxysmal atrial fibrillation. Patient admitted with altered mental status and infection secondary to UTI and possible bilateral leg cellulitis. Patient is poor historian due to her mental status and could not provide information, her sugar was 77 and 85. Vitals are stable, showing mild leukocytosis of 12.5. Rest of the labs including rest of CBC, BMP, INR, liver enzymes are unremarkable. Urine analysis is suspicious of infection CT of the brain: No acute abnormality Chest x-ray: Small retrocardiac opacity may represent atelectasis or developing infiltrates EKG showing normal sinus rhythm with sinus arrhythmia at 88 In the emergency room patient was started on Zosyn 04/24/2020 Patient today is waking up, she is oriented to time place and person, she still little bit confused to the surrounding. She was asking when she was in the hospital and patient was updated. She states that she has difficulty breathing with coughing but no chest pain, she is not sure if she has some urinary symptoms And she says that they're bilateral lower extremity redness is chronic for 3 years. No more fever. Labs are stable. Venous ultrasound is negative for DVT Repeat chest x-ray: No acute process Review of Systems CONSTITUTIONAL: No fever, no malaise, no fatigue. HEENT: No recent visual problems or hearing problems. Denied any sore throat. CARDIOVASCULAR: No orthopnea, PND, no palpitations, no syncope. PULMONARY: No shortness of breath, no cough, no hemoptysis. GASTROINTESTINAL: No diarrhea, no nausea, no vomiting, no abdominal pain. Normoactive bowel sounds. NEUROLOGICAL: No headaches, no weakness, no numbness. Active Medications Generic Name Dose Route Start Last Admin Trade Name Freq PRN Reason Stop Dose Admin Apixaban 5 mg 04/23/20 21:00 04/24/20 10:23 Apixaban 5 Mg Tab PO 5 mg BID COURTNEY Administration Famotidine 20 mg 04/24/20 09:00 04/24/20 10:22 Famotidine 20 Mg/2 Ml Vial IV 20 mg Q12HR COURTNEY Administration Furosemide 40 mg 04/24/20 09:00 04/24/20 10:23 Furosemide 40 Mg Tab PO 40 mg BID COURTNEY Administration Ceftriaxone Sodium 2 gm/ 50 mls @ 100 mls/hr 04/23/20 22:00 04/24/20 01:39 Sodium Chloride IVPB 100 mls/hr Q24H COURTNEY Administration Dextrose/Sodium Chloride 1,000 mls @ 50 mls/hr 04/23/20 23:45 04/24/20 01:20 Dextrose 5%-1/2ns Iv Soln IV 50 mls/hr .Q20H COURTNEY Administration Azithromycin 500 mg/ Sodium 250 mls @ 250 mls/hr 04/24/20 10:00 04/24/20 10:22 Chloride IVPB 250 mls/hr DAILY COURTNEY Administration Levothyroxine Sodium 100 mcg 04/24/20 06:30 04/24/20 06:58 Levothyroxine 100 Mcg Tab PO 100 mcg DAILY@0630 COURTNEY Administration Montelukast Sodium 10 mg 04/24/20 21:00 Montelukast 10 Mg Tab PO [facility] Potassium Chloride 20 meq 04/24/20 09:00 04/24/20 10:23 Potassium Chloride Er 10 Meq Tab.Er.Prt PO 20 meq BID COURTNEY Administration Pravastatin Sodium 20 mg 04/24/20 21:00 Pravastatin Sodium 20 Mg Tab PO HS [facility] Objective - Vital Signs Vital signs: Vital Signs Temp 99.1 F 04/24/20 09:00 Pulse 92 04/24/20 09:00 Resp 20 04/24/20 09:00 BP 100/59 04/24/20 09:00 Pulse Ox 92 L 04/24/20 09:00 Intake & Output 04/23/20 04/24/20 04/24/20 18:59 06:59 18:59 Weight 104.417 kg 104.417 kg Other: # Voids 1 - Labs CBC & Chem 7: 04/24/20 07:45 04/24/20 07:45 Labs: Abnormal Lab Results - Last 24 Hours (Table) 04/23/20 04/23/20 04/23/20 Range/Units 14:24 14:24 16:05 WBC 12.5 H (3.8-10.6) k/uL RBC (3.80-5.40) m/uL Hgb (11.4-16.0) gm/dL Neutrophils # 10.3 H (1.3-7.7) k/uL Sodium (137-145) mmol/L Carbon Dioxide 33 H (22-30) mmol/L Glucose (74-99) mg/dL POC Glucose (mg/dL) (75-99) mg/dL Calcium (8.4-10.2) mg/dL Total Protein (6.3-8.2) g/dL Albumin (3.5-5.0) g/dL Urine Appearance Cloudy H (Clear) Urine Protein Trace H (Negative) Urine Blood Small H (Negative) Ur Leukocyte Esterase Large H (Negative) Urine RBC 17 H (0-5) /hpf Urine WBC >182 H (0-5) /hpf Urine Bacteria Occasional H (None) /hpf 04/24/20 04/24/20 04/24/20 Range/Units 06:39 07:45 07:45 WBC (3.8-10.6) k/uL RBC 3.66 L (3.80-5.40) m/uL Hgb 11.0 L (11.4-16.0) gm/dL Neutrophils # (1.3-7.7) k/uL Sodium 136 L (137-145) mmol/L Carbon Dioxide 32 H (22-30) mmol/L Glucose 100 H (74-99) mg/dL POC Glucose (mg/dL) 107 H (75-99) mg/dL Calcium 8.0 L (8.4-10.2) mg/dL Total Protein 4.6 L (6.3-8.2) g/dL Albumin 2.4 L (3.5-5.0) g/dL Urine Appearance (Clear) Urine Protein (Negative) Urine Blood (Negative) Ur Leukocyte Esterase (Negative) Urine RBC (0-5) /hpf Urine WBC (0-5) /hpf Urine Bacteria (None) /hpf Microbiology - Last 24 Hours (Table) 04/23/20 16:05 Urine Culture - Preliminary Urine,Voided Assessment and Plan Assessment: Acute urinary tract infection. Follow-up urine culture possible Bilateral lower extremity cellulitis. Rule out DVT Metabolic encephalopathy secondary to above Abnormal possible small retrocardiac opacity on the chest x-ray, mostly atelectasis rather than pneumonia Hypertension Hyperlipidemia Diabetes mellitus Atrial fibrillationOn Eliquis , Heart failure Osteoarthritis History of sleep apnea on CPAP/BiPAP History of urinary incontinence History of Gait abnormality using her walker Plan: This is a pleasant 79 years old female who presents with infection, mostly UTI less likely cellulitis of the lower extremity. Consult infectious disease was started her on ceftriaxone. ultrasound of the lower extremity is negative for bilateral DVT. Follow-up urine culture Labs and medication were reviewed.. Continue same treatment. Continue with symptomatic treatment. Resume home medication. Monitor lytes and vitals. DVT and GI prophylaxis. Further recommendations depends on the clinical course of the patient DVT prophylaxis: Eliquis GI Prophylaxis: Pepcid PT/OT: Pending Prognosis is guarded Dr. Palm were resume the care of the patient tomorrow
[2020-04-24 17:01] LABS: Glucose,Whole Blood 125 mg/dL (75-99)
[2020-04-24 21:19] LABS: Glucose,Whole Blood 139 mg/dL (75-99)
[2020-04-24] MEDS: MONTELUKAST 10 MG TAB PO SCH (21:49)
[2020-04-24] MEDS: PRAVASTATIN SODIUM 20 MG TAB PO SCH (21:49)
--- NOTE | 2020-04-24 23:12 | PN ---
PROGRESS NOTE DATE OF SERVICE: 04/24/2020 REASON FOR FOLLOWUP: Urinary tract infection and bilateral lower extremity cellulitis. INTERVAL HISTORY: The patient is currently afebrile. The patient is breathing comfortably. Mentioned she is feeling slightly better today. Denies having any chest pain or shortness of breath or cough. No abdominal pain or diarrhea. PHYSICAL EXAMINATION: Blood pressure 110/68 with a pulse of 89, temperature 98.2. She is 92% on room air. General description is an elderly female lying in bed in no distress. RESPIRATORY SYSTEM: Unlabored breathing, clear to auscultation anteriorly. HEART: S1, S2. Regular rate and rhythm. ABDOMEN: Soft, no tenderness. Legs are currently swelling, minimal redness, no drainage. LABS: Lower extremity Doppler was negative for DVT. Urine showing a Gram-negative bacilli. White count normalized to 9.7. Creatinine 0.77. DIAGNOSTIC IMPRESSION AND PLAN: Patient admitted to the hospital with generalized weakness which is likely multifactorial in a patient who did have a component of Gram-negative urinary tract infection, plus lower extremity cellulitis, likely streptococcal disease in this patient who seemed to have shown clinical response to Rocephin which will be continued while waiting for the culture to finalize. Chau wrap to the legs to keep the swelling down. MMODL / IJN: [id number] /
[2020-04-25 06:58] LABS: Glucose,Whole Blood 148 mg/dL (75-99)
[2020-04-25] MEDS: LEVOTHYROXINE 100 MCG TAB PO SCH (06:59)
[2020-04-25] MEDS: POTASSIUM CHLORIDE ER 10 MEQ TAB.ER.PRT PO SCH ×2 (08:39→21:22)
[2020-04-25] MEDS: FUROSEMIDE 40 MG TAB PO SCH ×2 (08:39→21:22)
[2020-04-25] MEDS: FAMOTIDINE 20 MG/2 ML VIAL IV SCH (08:39)
[2020-04-25] MEDS: APIXABAN 5 MG TAB PO SCH ×2 (08:39→21:23)
[2020-04-25 08:46] LABS: Calcium 7.9 mg/dL (8.4-10.2); Potassium 3.8 mmol/L (3.5-5.1)
[2020-04-25 15:35] VITALS: BMI 39.5
--- NOTE | 2020-04-25 16:01 | P.PN ---
Subjective Progress Note Date: 04/25/20 This is a 79-year-old female admitted with acute UTI, bilateral lower extremity cellulitis and multiple other medical issues. Maintained on Rocephin with urine culture currently reporting gram-negative bacilli. Afebrile. Blood sugars controlled. Denies chest pain, palpitations or shortness of breath. Objective - Vital Signs Vital signs: Vital Signs Temp 97.9 F 04/25/20 08:46 Pulse 87 04/25/20 09:00 Resp 18 04/25/20 09:00 BP 104/52 04/25/20 08:46 Pulse Ox 95 04/25/20 08:46 Intake & Output 04/24/20 04/25/20 04/25/20 18:59 06:59 18:59 Intake Total 1350 240 Output Total 163 260 1923 Balance 550 -800 -760 Weight 104.417 kg Intake: IV 850 Azithromycin 500 mg In 250 Sodium Chloride 0.9% 250 ml @ 250 mls/hr IVPB DAILY COURTNEY Rx#:[id number] Dextrose 5%-0.45% NaCl 1, 600 000 ml @ 50 mls/hr IV . Q20H COURTNEY Rx#:[id number] Oral 500 240 Output: Urine [phone] Other: # Voids 2 - Exam -GENERAL: Alert and oriented 3, no acute distress. Occasional fluctuating mild confusion HEENT: Pupils are round and equally reacting to light. EOMI. No scleral icterus. No conjunctival pallor. Normocephalic, atraumatic. No pharyngeal erythema. No thyromegaly. CARDIOVASCULAR: S1 and S2 present. No murmurs, rubs, or gallops. PULMONARY: Chest is clear to auscultation, no wheezing or crackles. ABDOMEN: Soft, nontender, nondistended, normoactive bowel sounds. No palpable organomegaly. -EXTREMITIES: No cyanosis, clubbing, or pedal edema. Minimal erythema and tenderness of bilateral lower extremities, no drainage. NEUROLOGICAL: Gross neurological examination did not reveal any focal deficits. SKIN: No rashes. No petechiae, warm and dry. - Labs CBC & Chem 7: 04/24/20 07:45 04/25/20 08:04 Labs: Abnormal Lab Results - Last 24 Hours (Table) 04/24/20 04/24/20 04/25/20 Range/Units 16:59 21:14 06:55 Carbon Dioxide (22-30) mmol/L Glucose (74-99) mg/dL POC Glucose (mg/dL) 125 H 139 H 148 H (75-99) mg/dL Calcium (8.4-10.2) mg/dL 04/25/20 Range/Units 08:04 Carbon Dioxide 34 H (22-30) mmol/L Glucose 166 H (74-99) mg/dL POC Glucose (mg/dL) (75-99) mg/dL Calcium 7.9 L (8.4-10.2) mg/dL Microbiology - Last 24 Hours (Table) 04/23/20 16:05 Urine Culture - Preliminary Urine,Voided Gram Neg Bacilli 04/23/20 16:05 Blood Culture - Preliminary Blood No Growth after 24 hours Assessment and Plan Assessment: Acute urinary tract infection, gram-negative bacilli possible Bilateral lower extremity cellulitis. DVT ruled out. Metabolic encephalopathy secondary to above Abnormal possible small retrocardiac opacity on the chest x-ray, mostly atelectasis rather than pneumonia Hypertension Hyperlipidemia Diabetes mellitus Atrial fibrillationOn Eliquis Heart failure Osteoarthritis History of sleep apnea on CPAP/BiPAP History of urinary incontinence History of Gait abnormality using her walker Plan: Continue on current medication regime ,monitoring and supportive treatment. Final culture results pending. Continue IV antibiotics. Discharge planning in progress for tomorrow pending final DC recommendations and clearance from infectious disease. The impression and plan of care has been dictated as directed. : I performed a history and examination of this patient, discussed the same with the dictator. I agree with the dictator's note ,documented as a scribe. Any additional findings or plans will be noted.
[2020-04-25] MEDS: DEXTROSE 5%-0.45% NACL 1,000 ML IV SCH (21:14)
[2020-04-25] MEDS: MONTELUKAST 10 MG TAB PO SCH (21:22)
[2020-04-25] MEDS: FAMOTIDINE 20 MG TAB PO SCH (21:22)
[2020-04-25] MEDS: PRAVASTATIN SODIUM 20 MG TAB PO SCH (21:23)
--- NOTE | 2020-04-25 22:54 | PN ---
PROGRESS NOTE DATE OF SERVICE: 04/25/2020 REASON FOR FOLLOWUP: Urinary tract infection and bilateral recurrent cellulitis. INTERVAL HISTORY: The patient is currently afebrile. She is feeling slightly better, breathing comfortably. Patient denies having any chest pain or cough. No abdominal pain or pain to the lower extremities. PHYSICAL EXAMINATION: Blood pressure 121/71 with a pulse of 95, temperature 97.7. She is 94% on room air. General description is an elderly female lying in bed in no distress. RESPIRATORY SYSTEM: Unlabored breathing. Clear to auscultation anteriorly. HEART: S1, S2. Regular rate and rhythm. ABDOMEN: Soft. No tenderness. Legs have been swollen. Minimal redness. No drainage. LABS: BUN of 12, creatinine 0.77. Urine with an E coli sensitive pathogen. Blood culture has been negative. DIAGNOSTIC IMPRESSION AND PLAN: Patient admitted to hospital with generalized weakness which is multifactorial in this patient with a component of Escherichia coli urinary tract infection and possible lower extremity cellulitis. Patient has overall improvement on Rocephin with the heart rhythm sensitive to cefazolin. Antibiotic will be adjusted to cefazolin 2 grams with a plan to finish therapy with oral Keflex. Continue with supportive care. MMODL / IJN: [id number] /
[2020-04-26] MEDS: LEVOTHYROXINE 100 MCG TAB PO SCH (06:18)
[2020-04-26] MEDS ORDERED: ACETAMINOPHEN TAB 325 MG TAB PO PRN (08:51)
--- NOTE | 2020-04-26 08:57 | P.DS ---
Providers Date of admission: 04/23/20 16:04 Expected date of discharge: 04/26/20 Attending physician: Sriram Palm MD Consults: 04/23/20 17:20 Consult Physician Routine Consulting Provider: Anjali Kapadia Consult Reason/Comments: ble cellulitis Do you want consulting provider notified?: Yes Primary care physician: Jannette Palm Hospital Course: Final Diagnoses: Acute urinary tract infection, E. coli possible Bilateral lower extremity cellulitis. DVT ruled out. Metabolic encephalopathy secondary to above, resolved Abnormal possible small retrocardiac opacity on the chest x-ray, mostly atelectasis rather than pneumonia Hypertension Hyperlipidemia Diabetes mellitus Atrial fibrillationOn Eliquis Heart failure Osteoarthritis History of sleep apnea on CPAP/BiPAP History of urinary incontinence History of Gait abnormality using her walker Hospital course:This is a 79-year-old female admitted with acute UTI, bilateral lower extremity cellulitis and multiple other medical issues. Maintained on Rocephin with urine culture currently reporting gram-negative bacilli. Afebrile. Blood sugars controlled. Denies chest pain, palpitations or shortness of breath. Microbiology 04/23/20 16:05 Urine,Voided Urine Culture - Final Escherichia coli 04/23/20 16:05 Blood Blood Culture - Preliminary No Growth after 48 hours Maintained on IV antibiotics with significant clinical improvement. Complains of dry heel calluses, Aveeno moisturizing cream recommended. Denies chest pain, palpitations or shortness of breath. Patient Condition at Discharge: Stable Plan - Discharge Summary Discharge Rx Participant: No New Discharge Prescriptions: New Cephalexin [Keflex] 500 mg PO QID 1 Days #20 cap Famotidine [Pepcid] 20 mg PO BID #14 tab Continue Pravastatin Sodium [Pravachol] 20 mg PO HS Montelukast [Singulair] 10 mg PO HS Levothyroxine Sodium [Synthroid] 100 mcg PO DAILY Potassium Chloride ER [K-Dur 10] 20 meq PO BID Furosemide [Lasix] 40 mg PO BID Apixaban [Eliquis] 5 mg PO BID Metoprolol Tartrate [Lopressor] 12.5 mg PO BID tab Acetaminophen Tab [Tylenol] 650 mg PO Q6HR PRN tab PRN Reason: Mild Pain Or Fever > 100.5 Discharge Medication List Levothyroxine Sodium [Synthroid] 100 mcg PO DAILY 10/05/19 [History] Montelukast [Singulair] 10 mg PO HS 10/05/19 [History] Pravastatin Sodium [Pravachol] 20 mg PO HS 10/05/19 [History] Furosemide [Lasix] 40 mg PO BID 11/18/19 [History] Potassium Chloride ER [K-Dur 10] 20 meq PO BID 11/18/19 [History] Apixaban [Eliquis] 5 mg PO BID 02/25/20 [History] Acetaminophen Tab [Tylenol] 650 mg PO Q6HR PRN tab 03/01/20 [Rx] Metoprolol Tartrate [Lopressor] 12.5 mg PO BID tab 03/01/20 [Rx] Cephalexin [Keflex] 500 mg PO QID 1 Days #20 cap 04/26/20 [Rx] Famotidine [Pepcid] 20 mg PO BID #14 tab 04/26/20 [Rx] Follow up Appointment(s)/Referral(s): Jannette Palm DO [Primary Care Provider] - 3 Days Activity/Diet/Wound Care/Special Instructions: Aveeno moisturizing cream to bilateral heel calluses tid.
[2020-04-26] MEDS: POTASSIUM CHLORIDE ER 10 MEQ TAB.ER.PRT PO SCH ×2 (08:59→22:37)
[2020-04-26] MEDS: FUROSEMIDE 40 MG TAB PO SCH ×2 (08:59→22:37)
[2020-04-26] MEDS: APIXABAN 5 MG TAB PO SCH ×2 (08:59→22:36)
[2020-04-26] MEDS: FAMOTIDINE 20 MG TAB PO SCH ×2 (08:59→22:36)
[2020-04-26] MEDS: METOPROLOL TARTRATE 12.5 MG TAB PO SCH ×2 (09:07→22:36)
[2020-04-26 10:33] LABS: African American GFR (CKD) >90 (>60 ml/min/1.73 sqM); Anion Gap 2 mmol/L; Blood Urea Nitrogen 15 mg/dL (7-17); Calcium 8.2 mg/dL (8.4-10.2); Carbon Dioxide 37 mmol/L (22-30); Chloride 99 mmol/L (98-107); Glucose 115 mg/dL (74-99); Non-African American GFR(CKD) 81 (>60 ml/min/1.73 sqM); Potassium 4.3 mmol/L (3.5-5.1); Sodium 138 mmol/L (137-145)
--- NOTE | 2020-04-26 14:15 | CDI ---
Documentation Clarification Form Date: 04/26/2020 01:54:52 PM From: Saige Gonzalez RN, CCDS Admit Date: 04/26/2020 08:47:00 AM Patient Name: Nicole Goldsmith Visit Number: [id number] Discharge Date: ATTENTION: The Clinical Documentation Specialists (CDI) and [facility] Coding Staff appreciate your assistance in clarifying documentation. Please respond to the clarification below the line at the bottom and electronically sign. The CDI & [facility] Coding staff will review the response and follow-up if needed. Please note: Queries are made part of the Legal Health Record. If you have any questions, please contact the author of this message via ITS. Dr. Sriram Palm CHF is documented in the past medical history with ongoing treatment. Please provide further specificity of heart failure. History/Risk Factors: Atrial Fibrillation, Asthma, Heart Failure, COPD, Diabetes mellitus, hypertension Clinical Indicators: 79-year-old female who present on 04/23 with generalized weakness in her legs. She states her leg edema and erythema are chronic and unchanged. She has pedal edema. 04/23 Vital signs 121/72 85 18 98 97 % RA Echocardiogram Results: (last reported 11/20/19) Overall left ventricular systolic function is normal with, an EF between 55-60 % There is moderate to severe pulmonary hypertension. There is a trivial pericardial effusion present. 04/23 Chest X Ray: Small retrocardiac opacity may represent atelectasis or developing infiltrates. Treatment: Lasix 40 mg PO BID Lopressor 12.5 mg PO BID In your professional opinion, can you please clarify the acuity and type of CHF if known? Chronic Diastolic Heart Failure: Unable to Determine Other, please specify (Last Revision: August 2017) Chronic Diastolic Heart Failure MTDD
--- NOTE | 2020-04-26 15:20 | PN ---
PROGRESS NOTE DATE OF SERVICE: 04/26/2020 REASON FOR FOLLOWUP VISIT: E. coli urinary tract infection and lower extremity cellulitis. INTERVAL HISTORY: Patient is currently afebrile, overall feeling better, breathing comfortably. The patient denies having any chest pain. No shortness of breath or cough. No abdominal pain or pain to the lower extremity. PHYSICAL EXAMINATION: Blood pressure 141/65, pulse of 83, temperature 98.1. She is 95% on room air. General description: The patient is an elderly female lying in bed in no distress. Respiratory system: Unlabored breathing, clear to auscultation anteriorly. Heart S1, S2. Regular rate and rhythm. Abdomen soft, no tenderness. LABS: BUN 15, creatinine 0.71. DIAGNOSTIC IMPRESSION AND PLAN: Patient admitted to the hospital with weakness, which is multifactorial in this patient who did have a component of E coli urinary tract infection and worsening cellulitis. Overall improvement on cefazolin. Plan to finish therapy with oral Keflex 500 mg t.i.d. for about a week and close outpatient followup. MMODL / IJN: [id number] / MTDD
[2020-04-26 21:44] LABS: Glucose,Whole Blood 120 mg/dL (75-99)
[2020-04-26] MEDS: DEXTROSE 5%-0.45% NACL 1,000 ML IV SCH (22:06)
[2020-04-26] MEDS: MONTELUKAST 10 MG TAB PO SCH (22:37)
[2020-04-26] MEDS: PRAVASTATIN SODIUM 20 MG TAB PO SCH (22:37)
[2020-04-27 06:33] LABS: Glucose,Whole Blood 94 mg/dL (75-99)
[2020-04-27] MEDS: LEVOTHYROXINE 100 MCG TAB PO SCH (06:34)
[2020-04-27 07:48] VITALS: BP 137/63; PULSE 63; RESP 12; TEMP 97
[2020-04-27] MEDS: FUROSEMIDE 40 MG TAB PO SCH (08:43)
[2020-04-27] MEDS: FAMOTIDINE 20 MG TAB PO SCH (08:43)
[2020-04-27] MEDS: METOPROLOL TARTRATE 12.5 MG TAB PO SCH (08:43)
[2020-04-27] MEDS: POTASSIUM CHLORIDE ER 10 MEQ TAB.ER.PRT PO SCH (08:43)
[2020-04-27] MEDS: APIXABAN 5 MG TAB PO SCH (08:43)
[2020-04-27] MEDS ORDERED: CEPHALEXIN 500 MG CAP PO SCH (10:37)
== END 2020-04-27 10:45 | DRG 689 ==
LOC: EC 13:33 → 1SOBS 16:04 → OBSVTOIN 04-26 08:47
PROVIDERS: ADMIT Family Medicine; ATTEND Family Medicine
DX: N39.0 Urinary tract infection, site not specified (principal); G93.41 Metabolic encephalopathy; L03.115 Cellulitis of right lower limb; L03.116 Cellulitis of left lower limb; I50.32 Chronic diastolic (congestive) heart failure; J98.11 Atelectasis; E11.9 Type 2 diabetes mellitus without complications; B96.20 Unspecified Escherichia coli [E. coli] as the cause of diseases classified elsewhere; E66.9 Obesity, unspecified; I11.0 Hypertensive heart disease with heart failure; I48.0 Paroxysmal atrial fibrillation; J44.9 Chronic obstructive pulmonary disease, unspecified; Z20.828 Contact with and (suspected) exposure to other viral communicable diseases; E78.5 Hyperlipidemia, unspecified; G47.30 Sleep apnea, unspecified; R32 Unspecified urinary incontinence; R26.9 Unspecified abnormalities of gait and mobility; M19.90 Unspecified osteoarthritis, unspecified site; Z68.39 Body mass index [BMI] 39.0-39.9, adult; Z79.01 Long term (current) use of anticoagulants; Z79.890 Hormone replacement therapy; Z79.899 Other long term (current) drug therapy; Z87.01 Personal history of pneumonia (recurrent); Z86.14 Personal history of Methicillin resistant Staphylococcus aureus infection; Z90.710 Acquired absence of both cervix and uterus; Z90.89 Acquired absence of other organs; Z87.19 Personal history of other diseases of the digestive system; Z90.49 Acquired absence of other specified parts of digestive tract; Z87.42 Personal history of other diseases of the female genital tract; Z96.653 Presence of artificial knee joint, bilateral; Z98.42 Cataract extraction status, left eye; Z98.41 Cataract extraction status, right eye; Z87.39 Personal history of other diseases of the musculoskeletal system and connective tissue; Z86.59 Personal history of other mental and behavioral disorders; Z87.2 Personal history of diseases of the skin and subcutaneous tissue; Z86.79 Personal history of other diseases of the circulatory system; Z71.3 Dietary counseling and surveillance; Z98.890 Other specified postprocedural states; Z88.6 Allergy status to analgesic agent; Z88.2 Allergy status to sulfonamides; Z88.8 Allergy status to other drugs, medicaments and biological substances; Z91.048 Other nonmedicinal substance allergy status; Z88.1 Allergy status to other antibiotic agents; Z83.2 Family history of diseases of the blood and blood-forming organs and certain disorders involving the immune mechanism; Z80.9 Family history of malignant neoplasm, unspecified; Z82.49 Family history of ischemic heart disease and other diseases of the circulatory system
CPT/HCPCS: 36415; 70450; 71045; 71046; 80048; 80053; 81001; 83605; 83735; 84484; 85025; 85610; 85730; 87040; 87077; 87086; 87186; 87635; 93005; 93970; 96361; 96365; 99285

== ENCOUNTER 2020-05-15 10:38 | Emergency (ER) | payer MEDICARE ==
[2020-05-15] MEDS ORDERED: KETOROLAC 15 MG/ML 1 ML VIAL IM STA (10:52)
--- NOTE | 2020-05-15 10:52 | ED ---
General Adult HPI - General Stated complaint: Weakness/Leg Pain Time Seen by Provider: 05/15/20 10:40 Source: patient, RN notes reviewed, old records reviewed - History of Present Illness Initial comments: This is an 79-year-old female who presents emergency department stating that she normally has a difficult time walking and she uses a walker. Today she felt like she was having some medial knee pain and she felt a little more unstable walking so she wanted to come in and be evaluated. Patient states this happened many times in the past and it seems to resolve on its own but today was slightly worsened normal. Patient denies any injury patient denies any increased edema to her chronic cellulitis that she has. Patient denies any recent fever chills per patient denies any other symptoms but of sensation of weakness and a little bit of medial knee pain on the left knee. - Related Data Home Medications Medication Instructions Recorded Confirmed Levothyroxine Sodium [Synthroid] 100 mcg PO DAILY 10/05/19 04/23/20 Montelukast [Singulair] 10 mg PO HS 10/05/19 04/23/20 Pravastatin Sodium [Pravachol] 20 mg PO HS 10/05/19 04/23/20 Furosemide [Lasix] 40 mg PO BID 11/18/19 04/23/20 Potassium Chloride ER [K-Dur 10] 20 meq PO BID 11/18/19 04/23/20 Apixaban [Eliquis] 5 mg PO BID 02/25/20 04/23/20 Previous Rx's Medication Instructions Recorded Acetaminophen Tab [Tylenol] 650 mg PO Q6HR PRN tab 03/01/20 Metoprolol Tartrate [Lopressor] 12.5 mg PO BID tab 03/01/20 Cephalexin [Keflex] 500 mg PO QID 1 Days #20 cap 04/26/20 Famotidine [Pepcid] 20 mg PO BID #14 tab 04/26/20 Allergies Allergy/AdvReac Type Severity Reaction Status Date / Time thallium-201 Allergy Intermediate Rash/Hives Verified 05/15/20 10:53 Sulfa (Sulfonamide AdvReac Severe low Verified 05/15/20 10:53 Antibiotics) hemoglobin aspirin AdvReac Mild blood in Verified 05/15/20 10:53 stool vancomycin AdvReac Rash/Hives Verified 05/15/20 10:53 steri strips AdvReac Mild blisters Uncoded 05/15/20 10:53 skin Review of Systems ROS Statement: Those systems with pertinent positive or pertinent negative responses have been documented in the HPI. ROS Other: All systems not noted in ROS Statement are negative. Past Medical History Past Medical History: Atrial Fibrillation, Atrial Flutter, Asthma, Blood Disorder, Heart Failure, COPD, Diabetes Mellitus, Hyperlipidemia, Hypertension, Osteoarthritis (OA), Pneumonia, Skin Disorder, Sleep Apnea/CPAP/BIPAP Additional Past Medical History / Comment(s): heart valve problem-not sure of name, sleep apnea-no cpap used, anemia, degenerative arthritis, diet controlled dm-patient states does not have dm, urinary incontinence, uses walker. History of Any Multi-Drug Resistant Organisms: MRSA Date of last positivie culture/infection: 06/27/18 MDRO Source:: Right Leg Past Surgical History: Appendectomy, Bariatric Surgery, Hysterectomy, Joint Replacement, Orthopedic Surgery, Tonsillectomy Additional Past Surgical History / Comment(s): Picc line insertion/later removed, lap band, right knee replacement x 2 & left knee replaced with revision, L ganglion wirst surgery, left ankle ORIF, right trigger thumb surgery, bilateral cataracts. Past Anesthesia/Blood Transfusion Reactions: Previous Problems w/ Anesthesia Additional Past Anesthesia/Blood Transfusion Reaction / Comment(s): difficulty waking up Past Psychological History: Anxiety, Depression Smoking Status: Never smoker Past Alcohol Use History: Rare Past Drug Use History: None Reported - Past Family History Daughter(s) Family Medical History: Deep Vein Thrombosis (DVT), Pulmonary Embolus Father Family Medical History: Cancer Mother Additional Family Medical History / Comment(s): Mother had hypotension. General Exam - General Exam Comments Initial Comments: GENERAL Patient is well-developed and well-nourished. Patient is in mild distress. EYES Patient's pupils are equal and round. Extraocular motion is intact SKIN Unremarkable NEURO The patient is alert and oriented 3 PYSCH Patient has normal interpersonal interactions. MUSCULOSKELETAL Left knee is tender the medial aspect. There is no swelling there is no redness patient's chronic cigarette is bilateral. Patient states is unchanged. Patient has full range of motion of the knee. The patient appears to have good strength of flexion and extension of the knee. Course Vital Signs 05/15/20 10:43 Temperature 97.8 F Pulse Rate 94 Respiratory 17 Rate Blood Pressure 122/76 O2 Sat by Pulse 96 Oximetry Medical Decision Making - Medical Decision Making Knee x-ray shows no acute abnormality. I spoke with the patient about being admitted possibly going to a rehabilitation center she did not want to do that she wanted to go back home and follow-up with an orthopedic surgeon Disposition Clinical Impression: Strain of left knee Disposition: HOME SELF-CARE Instructions (If sedation given, give patient instructions): Knee Pain (ED) Is patient prescribed a controlled substance at d/c from ED?: No Referrals: Sriram Palm MD [Primary Care Provider] - 1-2 days Time of Disposition: 12:37
--- NOTE | 2020-05-15 11:10 | XR ---
EXAMINATION TYPE: XR knee complete LT DATE OF EXAM: 05/15/2020 CLINICAL HISTORY: Pain. TECHNIQUE: Three views of the left knee are obtained. COMPARISON: Left knee x-ray April 30, 2014. FINDINGS: There is no acute fracture/dislocation evident in left knee. Metallic artifact from total left knee arthroplasty redemonstrated. Position stable. No new surrounding lucency. Moderate diffuse subcutaneous edema on current study. IMPRESSION: As above.
[2020-05-15 13:37] VITALS: BP 107/52; PULSE 82; RESP 18; TEMP 97
== END 2020-05-15 14:45 | disposition home or self-care (01) ==
LOC: EC 10:38
DX: S86.912A Strain of unspecified muscle(s) and tendon(s) at lower leg level, left leg, initial encounter (principal); I48.91 Unspecified atrial fibrillation; I50.9 Heart failure, unspecified; I11.0 Hypertensive heart disease with heart failure; J44.9 Chronic obstructive pulmonary disease, unspecified; E78.5 Hyperlipidemia, unspecified; E11.9 Type 2 diabetes mellitus without complications; M19.90 Unspecified osteoarthritis, unspecified site; G47.33 Obstructive sleep apnea (adult) (pediatric); Z79.01 Long term (current) use of anticoagulants; Z99.89 Dependence on other enabling machines and devices; Z88.2 Allergy status to sulfonamides; Z88.6 Allergy status to analgesic agent; Z88.1 Allergy status to other antibiotic agents; Z91.048 Other nonmedicinal substance allergy status; Z98.41 Cataract extraction status, right eye; Z98.42 Cataract extraction status, left eye; Z90.49 Acquired absence of other specified parts of digestive tract; Z90.710 Acquired absence of both cervix and uterus; Z96.653 Presence of artificial knee joint, bilateral; Z86.14 Personal history of Methicillin resistant Staphylococcus aureus infection; X58.XXXA Exposure to other specified factors, initial encounter
CPT/HCPCS: 99284 ×2; 96372 ×2; 73562; J1885

== ENCOUNTER 2020-05-20 11:55 | Inpatient (IN) | payer MEDICARE ==
--- NOTE | 2020-05-20 12:21 | ED ---
General Adult HPI - General Chief complaint: Weakness Stated complaint: Weakness Time Seen by Provider: 05/20/20 12:05 Source: patient, EMS, RN notes reviewed, old records reviewed Mode of arrival: EMS - History of Present Illness Initial comments: 79-year-old female presenting for evaluation of weakness, difficulty ambulating. Patient is coming from home. She's had worsening pain, swelling and skin breakdown in both of her legs. She denies measured fever but states she's had some chills associated with it. She states the redness has progressed up her legs. She denies cough or dyspnea. She denies abdominal pain nausea or vomiting. She has been admitted with bilateral cellulitis in the past. - Related Data Home Medications Medication Instructions Recorded Confirmed Levothyroxine Sodium [Synthroid] 100 mcg PO DAILY 10/05/19 04/23/20 Montelukast [Singulair] 10 mg PO HS 10/05/19 04/23/20 Pravastatin Sodium [Pravachol] 20 mg PO HS 10/05/19 04/23/20 Furosemide [Lasix] 40 mg PO BID 11/18/19 04/23/20 Potassium Chloride ER [K-Dur 10] 20 meq PO BID 11/18/19 04/23/20 Apixaban [Eliquis] 5 mg PO BID 02/25/20 04/23/20 Previous Rx's Medication Instructions Recorded Acetaminophen Tab [Tylenol] 650 mg PO Q6HR PRN tab 03/01/20 Metoprolol Tartrate [Lopressor] 12.5 mg PO BID tab 03/01/20 Cephalexin [Keflex] 500 mg PO QID 1 Days #20 cap 04/26/20 Famotidine [Pepcid] 20 mg PO BID #14 tab 04/26/20 Allergies Allergy/AdvReac Type Severity Reaction Status Date / Time thallium-201 Allergy Intermediate Rash/Hives Verified 05/20/20 12:03 Sulfa (Sulfonamide AdvReac Severe low Verified 05/20/20 12:03 Antibiotics) hemoglobin aspirin AdvReac Mild blood in Verified 05/20/20 12:03 stool vancomycin AdvReac Rash/Hives Verified 05/20/20 12:03 steri strips AdvReac Mild blisters Uncoded 05/20/20 12:03 skin Review of Systems ROS Statement: Those systems with pertinent positive or pertinent negative responses have been documented in the HPI. ROS Other: All systems not noted in ROS Statement are negative. Past Medical History Past Medical History: Atrial Fibrillation, Atrial Flutter, Asthma, Blood Disorder, Heart Failure, COPD, Diabetes Mellitus, Hyperlipidemia, Hypertension, Osteoarthritis (OA), Pneumonia, Skin Disorder, Sleep Apnea/CPAP/BIPAP Additional Past Medical History / Comment(s): heart valve problem-not sure of name, sleep apnea-no cpap used, anemia, degenerative arthritis, diet controlled dm-patient states does not have dm, urinary incontinence, uses walker. History of Any Multi-Drug Resistant Organisms: MRSA Date of last positivie culture/infection: 06/27/18 MDRO Source:: Right Leg Past Surgical History: Appendectomy, Bariatric Surgery, Hysterectomy, Joint Replacement, Orthopedic Surgery, Tonsillectomy Additional Past Surgical History / Comment(s): Picc line insertion/later removed, lap band, right knee replacement x 2 & left knee replaced with revision, L ganglion wirst surgery, left ankle ORIF, right trigger thumb surgery, bilateral cataracts. Past Anesthesia/Blood Transfusion Reactions: Previous Problems w/ Anesthesia Additional Past Anesthesia/Blood Transfusion Reaction / Comment(s): difficulty waking up Past Psychological History: Anxiety, Depression Smoking Status: Never smoker Past Alcohol Use History: Rare Past Drug Use History: None Reported - Past Family History Daughter(s) Family Medical History: Deep Vein Thrombosis (DVT), Pulmonary Embolus Father Family Medical History: Cancer Mother Additional Family Medical History / Comment(s): Mother had hypotension. General Exam General appearance: alert, in no apparent distress Head exam: Present: atraumatic, normocephalic Eye exam: Present: normal appearance ENT exam: Present: normal exam Neck exam: Present: normal inspection. Absent: tenderness Respiratory exam: Present: normal lung sounds bilaterally. Absent: respiratory distress Cardiovascular Exam: Present: regular rate, normal rhythm GI/Abdominal exam: Present: soft. Absent: distended, tenderness Extremities exam: Present: pedal edema, other (Bilateral swelling, skin breakdown, ulceration, and erythema up to the knees bilaterally.) Neurological exam: Present: alert, oriented X3, CN II-XII intact. Absent: motor sensory deficit Psychiatric exam: Present: normal affect, normal mood Skin exam: Present: warm Course Vital Signs 05/20/20 11:56 Temperature 97.9 F Pulse Rate 100 Respiratory 18 Rate Blood Pressure 121/69 O2 Sat by Pulse 96 Oximetry EKG Findings - EKG Comments: EKG Findings:: EKG: Sinus rhythm with PAC, left atrial enlargement, rate of 99, DC interval 158, QRS duration 66, QTc [address] segment elevation. Medical Decision Making - Medical Decision Making 79-year-old female with bilateral lower extremity cellulitis, ulceration. Patient afebrile, she is having difficulty ambulating and generalized weakness. Laboratory studies reveal normal CBC, normal CMP, negative lactic acid. She will be admitted for IV antibiotics. - Lab Data Result diagrams: 05/20/20 12:20 05/20/20 12:20 Lab Results 05/20/20 05/20/20 05/20/20 Range/Units 12:20 12:20 12:20 WBC 10.2 (3.8-10.6) k/uL RBC 4.19 (3.80-5.40) m/uL Hgb 12.5 (11.4-16.0) gm/dL Hct 37.9 (34.0-46.0) % MCV 90.5 (80.0-100.0) fL MCH 29.8 (25.0-35.0) pg MCHC 33.0 (31.0-37.0) g/dL RDW 13.5 (11.5-15.5) % Plt Count 240 (150-450) k/uL MPV 7.2 Neutrophils % 80 % Lymphocytes % 9 % Monocytes % 8 % Eosinophils % 2 % Basophils % 1 % Neutrophils # 8.2 H (1.3-7.7) k/uL Lymphocytes # 0.9 L (1.0-4.8) k/uL Monocytes # 0.8 (0-1.0) k/uL Eosinophils # 0.2 (0-0.7) k/uL Basophils # 0.1 (0-0.2) k/uL PT 10.8 (9.0-12.0) sec INR 1.0 (<1.2) APTT 22.7 (22.0-30.0) sec Sodium 138 (137-145) mmol/L Potassium 3.9 (3.5-5.1) mmol/L Chloride 105 (98-107) mmol/L Carbon Dioxide 29 (22-30) mmol/L Anion Gap 4 mmol/L BUN 15 (7-17) mg/dL Creatinine 0.54 (0.52-1.04) mg/dL Est GFR (CKD-EPI)AfAm >90 (>60 ml/min/1.73 sqM) Est GFR (CKD-EPI)NonAf 89 (>60 ml/min/1.73 sqM) Glucose 68 L (74-99) mg/dL Plasma Lactic Acid Maulik (0.7-2.0) mmol/L Calcium 8.2 L (8.4-10.2) mg/dL Magnesium 1.8 (1.6-2.3) mg/dL Total Bilirubin 1.0 (0.2-1.3) mg/dL AST 23 (14-36) U/L ALT 10 (4-34) U/L Alkaline Phosphatase 85 (38-126) U/L NT-Pro-B Natriuret Pep pg/mL Total Protein 5.6 L (6.3-8.2) g/dL Albumin 3.1 L (3.5-5.0) g/dL 05/20/20 05/20/20 Range/Units 12:20 12:37 WBC (3.8-10.6) k/uL RBC (3.80-5.40) m/uL Hgb (11.4-16.0) gm/dL Hct (34.0-46.0) % MCV (80.0-100.0) fL MCH (25.0-35.0) pg MCHC (31.0-37.0) g/dL RDW (11.5-15.5) % Plt Count (150-450) k/uL MPV Neutrophils % % Lymphocytes % % Monocytes % % Eosinophils % % Basophils % % Neutrophils # (1.3-7.7) k/uL Lymphocytes # (1.0-4.8) k/uL Monocytes # (0-1.0) k/uL Eosinophils # (0-0.7) k/uL Basophils # (0-0.2) k/uL PT (9.0-12.0) sec INR (<1.2) APTT (22.0-30.0) sec Sodium (137-145) mmol/L Potassium (3.5-5.1) mmol/L Chloride (98-107) mmol/L Carbon Dioxide (22-30) mmol/L Anion Gap mmol/L BUN (7-17) mg/dL Creatinine (0.52-1.04) mg/dL Est GFR (CKD-EPI)AfAm (>60 ml/min/1.73 sqM) Est GFR (CKD-EPI)NonAf (>60 ml/min/1.73 sqM) Glucose (74-99) mg/dL Plasma Lactic Acid Maulik 1.6 (0.7-2.0) mmol/L Calcium (8.4-10.2) mg/dL Magnesium (1.6-2.3) mg/dL Total Bilirubin (0.2-1.3) mg/dL AST (14-36) U/L ALT (4-34) U/L Alkaline Phosphatase (38-126) U/L NT-Pro-B Natriuret Pep 884 pg/mL Total Protein (6.3-8.2) g/dL Albumin (3.5-5.0) g/dL Disposition Clinical Impression: Cellulitis of both lower extremities, At risk for readmission to hospital Disposition: ADMITTED IP TO THIS HOSP Condition: Stable Is patient prescribed a controlled substance at d/c from ED?: No Referrals: Jannette Palm DO [Primary Care Provider] - 1-2 days Decision to Admit Reason: Admit from EC Decision Date: 05/20/20 Decision Time: 14:24
[2020-05-20 12:46] LABS: Basophils # (A) 0.1 k/uL (0-0.2); Basophils % (A) 1 %; Eosinophils # (A) 0.2 k/uL (0-0.7); Eosinophils % (A) 2 %; HCT 37.9 % (34.0-46.0); HGB 12.5 gm/dL (11.4-16.0); Lymphocytes # (A) 0.9 k/uL (1.0-4.8); Lymphocytes % (A) 9 %; MCH 29.8 pg (25.0-35.0); MCV 90.5 fL (80.0-100.0); Mean Platelet Volume 7.2; Monocytes # (A) 0.8 k/uL (0-1.0); Monocytes % (A) 8 %; Neutrophils # (A) 8.2 k/uL (1.3-7.7); Neutrophils % (A) 80 %; Platelet Count 240 k/uL (150-450); RBC 4.19 m/uL (3.80-5.40); RDW 13.5 % (11.5-15.5); WBC 10.2 k/uL (3.8-10.6)
[2020-05-20 13:22] LABS: ALT 10 U/L (4-34); AST 23 U/L (14-36); African American GFR (CKD) >90 (>60 ml/min/1.73 sqM); Albumin 3.1 g/dL (3.5-5.0); Alkaline Phosphatase 85 U/L (38-126); Anion Gap 4 mmol/L; Blood Urea Nitrogen 15 mg/dL (7-17); Calcium 8.2 mg/dL (8.4-10.2); Carbon Dioxide 29 mmol/L (22-30); Chloride 105 mmol/L (98-107); Glucose 68 mg/dL (74-99); Magnesium 1.8 mg/dL (1.6-2.3); Non-African American GFR(CKD) 89 (>60 ml/min/1.73 sqM); Potassium 3.9 mmol/L (3.5-5.1); Sodium 138 mmol/L (137-145); Total Protein 5.6 g/dL (6.3-8.2)
[2020-05-20] MEDS ORDERED: CLINDAMYCIN 600 MG in DEXTROSE 5% IN WATER 50 ML IVPB PRN ×2 (13:59)
[2020-05-20 14:19] LABS: Partial Thromboplastin Time 22.7 sec (22.0-30.0); Prothrombin Time 10.8 sec (9.0-12.0)
[2020-05-20] MEDS ORDERED: ACETAMINOPHEN TAB 325 MG TAB PO PRN (14:22)
[2020-05-20] MEDS ORDERED: NALOXONE 0.4 MG/ML 1 ML VIAL IV PRN (14:22)
[2020-05-20] MEDS: FUROSEMIDE 40 MG TAB PO SCH (17:25)
[2020-05-20] MEDS: DAPTOmycin 500 MG in SODIUM CHLORIDE 0.9% 50 ML IVPB SCH (17:38)
[2020-05-20] MEDS: POTASSIUM CHLORIDE ER 20 MEQ TAB.ER PO SCH (20:35)
[2020-05-20] MEDS: PRAVASTATIN SODIUM 20 MG TAB PO SCH (20:35)
[2020-05-20] MEDS: APIXABAN 5 MG TAB PO SCH (20:35)
[2020-05-20] MEDS: MONTELUKAST 10 MG TAB PO SCH (20:35)
[2020-05-20] MEDS: METOPROLOL TARTRATE 12.5 MG TAB PO SCH (20:35)
[2020-05-21] MEDS: LEVOTHYROXINE 100 MCG TAB PO SCH (05:26)
[2020-05-21] MEDS: APIXABAN 5 MG TAB PO SCH ×2 (08:03→20:47)
[2020-05-21] MEDS: POTASSIUM CHLORIDE ER 20 MEQ TAB.ER PO SCH ×2 (08:03→20:47)
[2020-05-21] MEDS: FUROSEMIDE 40 MG TAB PO SCH ×2 (08:03→16:25)
[2020-05-21] MEDS: METOPROLOL TARTRATE 12.5 MG TAB PO SCH ×2 (08:04→20:47)
--- NOTE | 2020-05-21 14:44 | P.HPIM ---
History of Present Illness H&P Date: 05/20/20 Chief Complaint: Weakness 79-year-old female presenting for evaluation of weakness, difficulty ambulating. Patient is coming from home. She's had worsening pain, swelling and skin breakdown in both of her legs. She denies measured fever but states she's had some chills associated with it. She states the redness has progressed up her legs. She denies cough or dyspnea. She denies abdominal pain nausea or vomiting. She has been admitted with bilateral cellulitis in the past. Patient was evaluated in ED for bilateral lower extremity cellulitis and ulcerations failing outpatient treatment with difficulty ambulating and generalized weakness; workup revealed normal CBC, CMP and negative lactic acid levels; patient is being admitted to the hospital due to failure of response to oral antibiotics and to start patient on IV antibiotics with ID evaluation and recommendations Past Medical History Past Medical History: Atrial Fibrillation, Atrial Flutter, Asthma, Blood Disorder, Heart Failure, COPD, Diabetes Mellitus, Hyperlipidemia, Hypertension, Osteoarthritis (OA), Pneumonia, Skin Disorder, Sleep Apnea/CPAP/BIPAP Additional Past Medical History / Comment(s): heart valve problem-not sure of name, sleep apnea-no cpap used, anemia, degenerative arthritis, diet controlled dm-patient states does not have dm, urinary incontinence, uses walker. History of Any Multi-Drug Resistant Organisms: MRSA Date of last positivie culture/infection: 06/27/18 MDRO Source:: Right Leg Past Surgical History: Appendectomy, Bariatric Surgery, Hysterectomy, Joint Replacement, Orthopedic Surgery, Tonsillectomy Additional Past Surgical History / Comment(s): Picc line insertion/later removed, lap band, right knee replacement x 2 & left knee replaced with revision, L ganglion wirst surgery, left ankle ORIF, right trigger thumb surgery, bilateral cataracts. Past Anesthesia/Blood Transfusion Reactions: Previous Problems w/ Anesthesia Additional Past Anesthesia/Blood Transfusion Reaction / Comment(s): difficulty waking up Past Psychological History: Anxiety, Depression Smoking Status: Never smoker Past Alcohol Use History: Rare Past Drug Use History: None Reported - Past Family History Daughter(s) Family Medical History: Deep Vein Thrombosis (DVT), Pulmonary Embolus Father Family Medical History: Cancer Mother Additional Family Medical History / Comment(s): Mother had hypotension. Medications and Allergies Home Medications Medication Instructions Recorded Confirmed Type Levothyroxine Sodium [Synthroid] 100 mcg PO DAILY 10/05/19 05/20/20 History Montelukast [Singulair] 10 mg PO HS 10/05/19 05/20/20 History Pravastatin Sodium [Pravachol] 20 mg PO HS 10/05/19 05/20/20 History Furosemide [Lasix] 40 mg PO BID 11/18/19 05/20/20 History Potassium Chloride ER [K-Dur 10] 20 meq PO BID 11/18/19 05/20/20 History Apixaban [Eliquis] 5 mg PO BID 02/25/20 05/20/20 History Metoprolol Tartrate 12.5 mg PO BID 05/20/20 05/20/20 History Allergies Allergy/AdvReac Type Severity Reaction Status Date / Time thallium-201 Allergy Intermediate Rash/Hives Verified 05/20/20 12:03 Sulfa (Sulfonamide AdvReac Severe low Verified 05/20/20 12:03 Antibiotics) hemoglobin aspirin AdvReac Mild blood in Verified 05/20/20 12:03 stool vancomycin AdvReac Rash/Hives Verified 05/20/20 12:03 steri strips AdvReac Mild blisters Uncoded 05/20/20 12:03 skin Physical Exam Vitals: Vital Signs Temp Pulse Resp BP Pulse Ox 05/20/20 11:56 97.9 F 100 18 121/69 96 Intake and Output 05/19/20 05/20/20 05/20/20 22:59 06:59 14:59 Other: Weight 113.398 kg General appearance: alert, in no apparent distress Head exam: Present: atraumatic, normocephalic Eye exam: Present: normal appearance ENT exam: Present: normal exam Neck exam: Present: normal inspection. Absent: tenderness Respiratory exam: Present: normal lung sounds bilaterally. Absent: respiratory distress Cardiovascular Exam: Present: regular rate, normal rhythm GI/Abdominal exam: Present: soft. Absent: distended, tenderness Extremities exam: Present: pedal edema, other (Bilateral swelling, skin breakdown, ulceration, and erythema up to the knees bilaterally.) Neurological exam: Present: alert, oriented X3, CN II-XII intact. Absent: motor sensory deficit Psychiatric exam: Present: normal affect, normal mood Skin exam: Present: warm Results CBC & Chem 7: 05/20/20 12:20 05/20/20 12:20 Labs: Abnormal Lab Results - Last 24 Hours (Table) 05/20/20 05/20/20 Range/Units 12:20 12:20 Neutrophils # 8.2 H (1.3-7.7) k/uL Lymphocytes # 0.9 L (1.0-4.8) k/uL Glucose 68 L (74-99) mg/dL Calcium 8.2 L (8.4-10.2) mg/dL Total Protein 5.6 L (6.3-8.2) g/dL Albumin 3.1 L (3.5-5.0) g/dL Assessment and Plan Assessment: 1. Ulceration/cellulitis bilateral lower extremity; failing outpatient treatment - Patient will be started on IV antibiotics; order blood and wound cultures; monitor CBC, pro-calcitonin and CRP; consult ID for further recommendations on IV antibiotics 2. Hypertension; continue with home dose of metoprolol 12.5 mg twice a day; Lasix 40 mg twice a day 3. Hypothyroidism; levothyroxin 100 MCG daily 4. Hyperlipidemia; pravastatin 20 mg by mouth daily at bedtime 5. Asthma/COPD; not in exacerbation; Singulair 10 mg by mouth daily at bedtime 6. Atrial flutter/fibrillation; rate controlled on metoprolol 12.5 mg daily along with Eliquis 5 mg twice a day for anticoagulation 7. Sleep apnea; uses CPAP DVT prophylaxis; SCDs/systemic anticoagulation CODE STATUS; full code
[2020-05-21] MEDS: DAPTOmycin 500 MG in SODIUM CHLORIDE 0.9% 50 ML IVPB SCH (16:25)
--- NOTE | 2020-05-21 20:08 | CONS ---
CONSULTATION DATE OF SERVICE: 05/21/2020 REASON FOR CONSULTATION: Bilateral lower extremity wounds and cellulitis. 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 The patient presented to the ER yesterday afternoon for evaluation of increasing pain, swelling and redness to the leg. The patient mentioned she started having more swelling in the leg and did develop a blister that subsequently ruptured, leading to formation of the superficial ulcerations on both anterior lower legs. The patient has been complaining of pain to the leg to be more throbbing, intensity almost 7 to 8 out of 10 with no radiation. The patient has been complaining of some chills but denies high-grade fever. With these symptoms the patient was evaluated by the ER physician. On arrival in the ER, the patient was afebrile. She did have a normal white count with a left shift. Kidney function was normal. Blood cultures were obtained which are currently pending. Patient was started on daptomycin because of ANTIBIOTIC ALLERGY. Infectious Disease was consulted for further management of antibiotics. REVIEW OF SYSTEMS: Positive points have been mentioned in HPI. Rest of the systems are negative. PAST MEDICAL HISTORY: Atrial fibrillation, asthma, heart failure, COPD, diabetes mellitus, hypertension, hyperlipidemia, osteoarthritis, pneumonia, sleep apnea, bilateral lower extremity venostasis ulcers and cellulitis. PAST SURGICAL HISTORY: Appendectomy, hysterectomy, tonsillectomy, knee replacement. SOCIAL HISTORY: Denies history of smoking, drinking or drug use. FAMILY HISTORY: Daughter with history of DVT and PE. Father with history of cancer. ALLERGIES: SULFA and VANCOMYCIN. MEDICATIONS: The patient is currently on Tylenol, Levaquin, daptomycin, Lasix, Synthroid, Lopressor, Singulair, Narcan, K-Dur, pravastatin. PHYSICAL EXAMINATION: Blood pressure 104/67, pulse of 87, temperature 98.3. She is 96% on room air. General description is an elderly female lying in bed in no distress. No tachypnea or accessory muscle of respiration use. HEENT: Examination shows no pallor or scleral icterus. Oral mucous membrane is dry. No pharyngeal erythema or thrush. NECK: Trachea is central. No thyromegaly. LUNGS: Unlabored breathing. Clear to auscultation anteriorly. No wheeze or crackle. HEART: S1, S2. Regular rate and rhythm. ABDOMEN: Soft. No tenderness. Bilateral lower extremities with superficial ulcerations, surrounding redness. No slough tissue or foul-smelling drainage. Neurologically the patient is awake, alert, oriented x3. Mood and affect normal. LABS: Hemoglobin is 12.5, white count 10.2, BUN of 15, creatinine 0.54. DIAGNOSTIC IMPRESSION AND PLAN: Patient with bilateral lower extremity cellulitis in this patient who did have diffuse swelling, redness and evidence of superficial ulceration from a ruptured blister, likely streptococcal disease. Patient with a SULFA AND VANCOMYCIN ALLERGY. PLAN: 1. Daptomycin 4 mg/kg daily to continue. 2. Local wound care with a dry Aquacel Silver dressing followed by Chau wrap from just above to below the knee. 3. Will follow clinical condition and culture to further adjust medication if needed. Thank you for this consultation. Will follow this patient along with you. MMODL / IJN: [id number] /
[2020-05-21] MEDS: PRAVASTATIN SODIUM 20 MG TAB PO SCH (20:47)
[2020-05-21] MEDS: MONTELUKAST 10 MG TAB PO SCH (20:47)
[2020-05-22] MEDS: LEVOTHYROXINE 100 MCG TAB PO SCH (05:04)
[2020-05-22 06:25] LABS: Basophils # (A) 0.1 k/uL (0-0.2); Basophils % (A) 1 %; Eosinophils # (A) 0.4 k/uL (0-0.7); Eosinophils % (A) 4 %; HCT 36.6 % (34.0-46.0); HGB 11.9 gm/dL (11.4-16.0); Lymphocytes # (A) 1.2 k/uL (1.0-4.8); Lymphocytes % (A) 14 %; MCHC 32.4 g/dL (31.0-37.0); MCV 92.6 fL (80.0-100.0); Mean Platelet Volume 6.9; Monocytes # (A) 0.8 k/uL (0-1.0); Monocytes % (A) 9 %; Neutrophils # (A) 6.5 k/uL (1.3-7.7); Neutrophils % (A) 72 %; Platelet Count 249 k/uL (150-450); RBC 3.95 m/uL (3.80-5.40); RDW 13.5 % (11.5-15.5)
[2020-05-22] MEDS: METOPROLOL TARTRATE 12.5 MG TAB PO SCH ×2 (07:57→20:46)
[2020-05-22] MEDS: APIXABAN 5 MG TAB PO SCH ×2 (07:57→20:46)
[2020-05-22] MEDS: FUROSEMIDE 40 MG TAB PO SCH ×2 (07:57→16:50)
[2020-05-22] MEDS: POTASSIUM CHLORIDE ER 20 MEQ TAB.ER PO SCH ×2 (07:58→20:46)
[2020-05-22 10:48] LABS: African American GFR (CKD) 99.8 (60.0-200.0); Anion Gap 5.3 mmol/L (4.00-12.00); BUN/Creat Ratio 26.67 Ratio (12.00-20.00); Carbon Dioxide 31.7 mmol/L (21.6-31.8); Non-African American GFR(CKD) 86.1 (60.0-200.0); Potassium 4.2 mmol/L (3.5-5.5)
--- NOTE | 2020-05-22 16:01 | P.PN ---
Subjective Progress Note Date: 05/21/20 Principal diagnosis: Bilateral lower extremity wounds/cellulitis 79-year-old female presenting for evaluation of weakness, difficulty ambulating. Patient is coming from home. She's had worsening pain, swelling and skin breakdown in both of her legs. She denies measured fever but states she's had some chills associated with it. She states the redness has progressed up her le gs. She denies cough or dyspnea. She denies abdominal pain nausea or vomiting. She has been admitted with bilateral cellulitis in the past. Patient was evaluated in ED for bilateral lower extremity cellulitis and ulcerations failing outpatient treatment with difficulty ambulating and generalized weakness; workup revealed normal CBC, CMP and negative lactic acid levels; patient is being admitted to the hospital due to failure of response to oral antibiotics and to start patient on IV antibiotics with ID evaluation and recommendations 05/21/2020 Patient is seen and evaluated in room at bedside; patient seems to be in no acute distress and resting in bed; vital signs are stable with a temperature of 98.3, pulse 87, blood pressure 107/63 Lab review shows a white blood count of 10.2, hemoglobin 12.5, B UN/creatinine of 15/0.54 Patient remains on IV daptomycin; patient has been evaluated by ID; patient has evidence of superficial ulceration and ruptured blister likely streptococcal disease; with ALLERGY to sulfa and vancomycin, IDs agreeable to continue daptomy stephan and local wound care with dry Aquasol silver dressing followed by Chau wrap Objective - Vital Signs Vital signs: Vital Signs Temp 98.1 F 05/21/20 08:00 Pulse 80 05/21/20 08:04 Resp 16 05/21/20 08:04 BP 100/60 05/21/20 08:00 Pulse Ox 96 05/21/20 08:00 Intake & Output 05/20/20 05/21/20 05/21/20 18:59 06:59 18:59 Weight 113.398 kg Other: Voiding Method Diaper Diaper Incontinent Incontinent # Voids 3 # Bowel Movements 0 - Exam General appearance: alert, in no apparent distress Head exam: Present: atraumatic, normocephalic Eye exam: Present: normal appearance ENT exam: Present: normal exam Neck exam: Present: normal inspection. Absent: tenderness Respiratory exam: Present: normal lung sounds bilaterally. Absent: respiratory distress Cardiovascular Exam: Present: regular rate, normal rhythm GI/Abdominal exam: Present: soft. Absent: distended, tenderness Extremities exam: Present: pedal edema, other (Bilateral swelling, skin breakdown, ulceration, and erythema up to the knees bilaterally.) Neurological exam: Present: alert, oriented X3, CN II-XII intact. Absent: motor sensory deficit Psychiatric exam: Present: normal affect, normal mood Skin exam: Present: warm - Labs CBC & Chem 7: 05/22/20 05:32 05/22/20 05:32 Labs: Microbiology - Last 24 Hours (Table) 05/20/20 12:37 Blood Culture - Preliminary Blood No Growth after 24 hours Assessment and Plan Assessment: 1. Ulceration/cellulitis bilateral lower extremity; failing outpatient treatment - Patient will be started on IV antibiotics; order blood and wound cultures; monitor CBC, pro-calcitonin and CRP; consult ID for further recommendations on IV antibiotics 2. Hypertension; continue with home dose of metoprolol 12.5 mg twice a day; Lasix 40 mg twice a day 3. Hypothyroidism; levothyroxin 100 MCG daily 4. Hyperlipidemia; pravastatin 20 mg by mouth daily at bedtime 5. Asthma/COPD; not in exacerbation; Singulair 10 mg by mouth daily at bedtime 6. Atrial flutter/fibrillation; rate controlled on metoprolol 12.5 mg daily along with Eliquis 5 mg twice a day for anticoagulation 7. Sleep apnea; uses CPAP DVT prophylaxis; SCDs/systemic anticoagulation CODE STATUS; full code
--- NOTE | 2020-05-22 16:04 | P.PN ---
Subjective Progress Note Date: 05/22/20 Principal diagnosis: Bilateral lower extremity wounds/cellulitis 79-year-old female presenting for evaluation of weakness, difficulty ambulating. Patient is coming from home. She's had worsening pain, swelling and skin breakdown in both of her legs. She denies measured fever but states she's had some chills associated with it. She states the redness has progressed up her le gs. She denies cough or dyspnea. She denies abdominal pain nausea or vomiting. She has been admitted with bilateral cellulitis in the past. Patient was evaluated in ED for bilateral lower extremity cellulitis and ulcerations failing outpatient treatment with difficulty ambulating and generalized weakness; workup revealed normal CBC, CMP and negative lactic acid levels; patient is being admitted to the hospital due to failure of response to oral antibiotics and to start patient on IV antibiotics with ID evaluation and recommendations 05/21/2020 Patient is seen and evaluated in room at bedside; patient seems to be in no acute distress and resting in bed; vital signs are stable with a temperature of 98.3, pulse 87, blood pressure 107/63 Lab review shows a white blood count of 10.2, hemoglobin 12.5, B UN/creatinine of 15/0.54 Patient remains on IV daptomycin; patient has been evaluated by ID; patient has evidence of superficial ulceration and ruptured blister likely streptococcal disease; with ALLERGY to sulfa and vancomycin, IDs agreeable to continue daptomy stephan and local wound care with dry Aquasol silver dressing followed by Chau wrap 05/22/2020 Patient is seen and resting comfortably in bed; no specific complaints; patient remains afebrile with blood pressure stable at 120/75 Lab review shows a normal white blood count of 9.0; BUN/creatinine of within normal limits; preliminary blood culture is positive for coagulase-negative staph; patient is currently on IV daptomycin; await further recommendations from ID; local wound care with dry Aquasol silver dressing followed by Chau wrap Objective - Vital Signs Vital signs: Vital Signs Temp 97.4 F L 05/22/20 08:00 Pulse 85 05/22/20 08:00 Resp 18 05/22/20 08:00 BP 120/75 05/22/20 08:00 Pulse Ox 92 L 05/22/20 08:00 Intake & Output 05/21/20 05/22/20 05/22/20 18:59 06:59 18:59 Intake Total 100 Output Total 200 Balance 100 -200 Intake: Intake, IV Titration 100 Amount DAPTOmycin 500 mg In 100 Sodium Chloride 0.9% 50 ml @ 100 mls/hr IVPB Q[facility] Rx#:[id number] Output: Urine 200 Other: Voiding Method Diaper Diaper Diaper Incontinent Incontinent Incontinent # Voids 1 # Bowel Movements 1 - Exam General appearance: alert, in no apparent distress Head exam: Present: atraumatic, normocephalic Eye exam: Present: normal appearance ENT exam: Present: normal exam Neck exam: Present: normal inspection. Absent: tenderness Respiratory exam: Present: normal lung sounds bilaterally. Absent: respiratory distress Cardiovascular Exam: Present: regular rate, normal rhythm GI/Abdominal exam: Present: soft. Absent: distended, tenderness Extremities exam: Present: pedal edema, other (Bilateral swelling, skin breakdown, ulceration, and erythema up to the knees bilaterally.) Neurological exam: Present: alert, oriented X3, CN II-XII intact. Absent: motor sensory deficit Psychiatric exam: Present: normal affect, normal mood Skin exam: Present: warm - Labs CBC & Chem 7: 05/22/20 05:32 05/22/20 05:32 Labs: Abnormal Lab Results - Last 24 Hours (Table) 05/22/20 Range/Units 05:32 BUN/Creatinine Ratio 26.67 H (12.00-20.00) Ratio Calcium 8.0 L (8.7-10.3) mg/dL Microbiology - Last 24 Hours (Table) 05/20/20 12:10 Blood Culture Gram Stain - Preliminary Blood Blood Culture - Preliminary Coagulase Negative Staph 05/20/20 12:37 Blood Culture Gram Stain - Preliminary Blood Blood Culture - Preliminary Coagulase Negative Staph 05/20/20 12:10 Blood Culture - Final Blood 05/20/20 12:37 Blood Culture - Final Blood Assessment and Plan Assessment: 1. Ulceration/cellulitis bilateral lower extremity; failing outpatient treatment - Patient will be started on IV antibiotics; order blood and wound cultures; monitor CBC, pro-calcitonin and CRP; consult ID for further recommendations on IV antibiotics 2. Hypertension; continue with home dose of metoprolol 12.5 mg twice a day; La six 40 mg twice a day 3. Hypothyroidism; levothyroxin 100 MCG daily 4. Hyperlipidemia; pravastatin 20 mg by mouth daily at bedtime 5. Asthma/COPD; not in exacerbation; Singulair 10 mg by mouth daily at bedtime 6. Atrial flutter/fibrillation; rate controlled on metoprolol 12.5 mg daily along with Eliquis 5 mg twice a day for anticoagulation 7. Sleep apnea; uses CPAP DVT prophylaxis; SCDs/systemic anticoagulation CODE STATUS; full code
[2020-05-22] MEDS: DAPTOmycin 500 MG in SODIUM CHLORIDE 0.9% 50 ML IVPB SCH (16:50)
--- NOTE | 2020-05-22 20:36 | PN ---
PROGRESS NOTE DATE OF SERVICE: 05/22/2020 REASON FOR FOLLOWUP: 1. Bilateral lower extremity venostasis ulcers. 2. Bacteremia. INTERVAL HISTORY: The patient is currently afebrile. The patient is feeling better, breathing comfortably. He has been complaining of pain, mostly to the knee area. No chest pain, shortness of breath or cough. No abdominal pain or diarrhea. PHYSICAL EXAMINATION: Blood pressure 102/57 with a pulse of 74, temperature 98. She is 93% on room air. General description is an elderly female up in the bed in no distress. RESPIRATORY SYSTEM: Unlabored breathing. Clear to auscultation anteriorly. HEART: S1, S2. Regular rate and rhythm. ABDOMEN: Soft. No tenderness. Legs are currently wrapped up. No obvious drainage on the dressing. LABS: Hemoglobin 11.9, white count 9.0, BUN of 16, creatinine 0.6. DIAGNOSTIC IMPRESSION AND PLAN: 1. Patient with bilateral lower extremity venostasis ulcers with secondary cellulitis. The patient has a VANCOMYCIN ALLERGY; however, antibiotic will be adjusted to cefazolin 2 grams q.8 hours. 2. Patient with a positive blood culture with coagulase-negative Staph, likely skin contaminant, and no need for any further workup for the same thing. MMODL / IJN: [id number] /
[2020-05-22] MEDS: MONTELUKAST 10 MG TAB PO SCH (20:46)
[2020-05-22] MEDS: PRAVASTATIN SODIUM 20 MG TAB PO SCH (20:47)
[2020-05-23] MEDS: LEVOTHYROXINE 100 MCG TAB PO SCH (05:36)
[2020-05-23 07:07] LABS: Basophils # (A) 0.1 k/uL (0-0.2); Basophils % (A) 1 %; Eosinophils # (A) 0.4 k/uL (0-0.7); Eosinophils % (A) 4 %; HGB 12.6 gm/dL (11.4-16.0); Lymphocytes # (A) 1.2 k/uL (1.0-4.8); Lymphocytes % (A) 12 %; MCH 29.8 pg (25.0-35.0); MCV 90.4 fL (80.0-100.0); Mean Platelet Volume 6.7; Monocytes # (A) 0.8 k/uL (0-1.0); Monocytes % (A) 8 %; Neutrophils # (A) 7.6 k/uL (1.3-7.7); Neutrophils % (A) 75 %; Platelet Count 270 k/uL (150-450); RBC 4.21 m/uL (3.80-5.40); RDW 13.5 % (11.5-15.5); WBC 10.2 k/uL (3.8-10.6)
[2020-05-23] MEDS: APIXABAN 5 MG TAB PO SCH ×2 (08:00→20:50)
[2020-05-23] MEDS: POTASSIUM CHLORIDE ER 20 MEQ TAB.ER PO SCH ×2 (08:00→20:45)
[2020-05-23] MEDS: METOPROLOL TARTRATE 12.5 MG TAB PO SCH ×2 (08:00→20:44)
[2020-05-23] MEDS: FUROSEMIDE 40 MG TAB PO SCH ×2 (08:04→16:52)
[2020-05-23 11:06] LABS: African American GFR (CKD) 99.8 (60.0-200.0); Anion Gap 6.8 mmol/L (4.00-12.00); C Reactive Protein 1.3 mg/dL (0.0-0.8); Calcium 8.3 mg/dL (8.7-10.3); Carbon Dioxide 32.2 mmol/L (21.6-31.8); Non-African American GFR(CKD) 86.1 (60.0-200.0); Potassium 4.1 mmol/L (3.5-5.5)
--- NOTE | 2020-05-23 16:32 | P.PN ---
Subjective Progress Note Date: 05/23/20 05/23/2020 this is an 79-year-old female from subacute rehab admitted with bilateral extremity wounds/cellulitis. Evaluated by infectious disease, recommendations noted and appreciated. Maintained on daptomycin. Continues to have significant generalized weakness. Afebrile, normal WBC. Preliminary blood cultures reporting Staphylococcus auricularis. Initial blood cultures reported coagulase-negative staph. Complains of knee pain. Denies chest pain, palpitations or shortness of breath. Denies lightheadedness, dizziness or focal deficits. Objective - Vital Signs Vital signs: Vital Signs Temp 97.9 F 05/23/20 14:00 Pulse 82 05/23/20 14:00 Resp 20 05/23/20 14:00 BP 132/75 05/23/20 14:00 Pulse Ox 95 05/23/20 14:00 Intake & Output 05/22/20 05/23/20 05/23/20 18:59 06:59 18:59 Intake Total 1080 200 Output Total 1800 2500 900 Balance -720 -2500 -700 Intake: Oral 1080 200 Output: Urine 1800 2500 900 Other: Voiding Method Diaper Diaper Diaper Incontinent Incontinent External Catheter External Catheter # Bowel Movements 1 1 - Exam PHYSICAL EXAM: VITAL SIGNS: As above GENERAL: Sitting up in bed, no acute distress HEENT: Conjunctivae normal. eyes normal. NECK: No JVD. No thyroid enlargement. No LNs CARDIOVASCULAR: S1, S2 regular.. No murmur RESPIRATION: Breath sounds diminished in the bases. No rhonchi or crackles. No bronchial breathing. ABDOMEN: Soft, nontender . No guarding. no masses palpable. No ascites, No hepatosplenomegaly.Bowel sounds heard. LEGS: Bilateral lower extremities Chau wrap, clean dry and intact, popped blisters on bilateral soles. PSYCHIATRY: Alert and oriented X3, mood and affect normal. NERVOUS SYSTEM: Cranial N 2-12 grossly normal. Moves all 4 limbs. Diffuse weakness, No focal deficits. Strength and sensation grossly intact.. Skin: Warm and dry, no rash - Labs CBC & Chem 7: 05/23/20 06:39 05/23/20 06:39 Labs: Abnormal Lab Results - Last 24 Hours (Table) 05/23/20 Range/Units 06:39 Carbon Dioxide 32.2 H (21.6-31.8) mmol/L BUN/Creatinine Ratio 25.00 H (12.00-20.00) Ratio Calcium 8.3 L (8.7-10.3) mg/dL C-Reactive Protein 1.3 H (0.0-0.8) mg/dL Microbiology - Last 24 Hours (Table) 05/20/20 12:37 Blood Culture Gram Stain - Preliminary Blood Blood Culture - Preliminary Staphylococcus auricularis 05/20/20 12:10 Blood Culture Gram Stain - Preliminary Blood Blood Culture - Preliminary Coagulase Negative Staph Assessment and Plan Assessment: Bilateral lower extremity venous stasis ulcers with secondary cellulitis, failed outpatient treatment initial blood culture with coagulase-negative staph suspect contamination. Another blood culture reporting Staphylococcus auricularis. Hypertension Hypothyroidism Hyperlipidemia Chronic intermittent asthma COPD, no acute exacerbation Chronic paroximal atrial fibrillation, chronic paroximal atrial flutter CPAP and uses CPAP Plan: Continue on current medication regime ,monitoring and symptomatic treatment. Wound care and antibiotic therapy as per ID. PT/OT consulted- patient states she only has 3 more days left of inpatient rehab. The impression and plan of care has been dictated as directed. : I performed a history and examination of this patient, discussed the same with the dictator. I agree with the dictator's note ,documented as a scribe. Any additional findings or plans will be noted.
[2020-05-23] MEDS: PRAVASTATIN SODIUM 20 MG TAB PO SCH (20:44)
[2020-05-23] MEDS: MONTELUKAST 10 MG TAB PO SCH (20:44)
--- NOTE | 2020-05-23 22:07 | PN ---
PROGRESS NOTE DATE OF SERVICE: 05/23/2020 REASON FOR FOLLOWUP: Bilateral lower extremity wounds and cellulitis. INTERVAL HISTORY: The patient is currently afebrile. The patient is breathing comfortably. The patient denies having any chest pain or shortness of breath or cough. No nausea, vomiting or abdominal pain or pain to the lower extremity. PHYSICAL EXAMINATION: Blood pressure 132/75 with a pulse of 82, temperature 97.9. She is 95% on room air. General description is an elderly female lying in bed in no distress. RESPIRATORY SYSTEM: Unlabored breathing. Clear to auscultation anteriorly. HEART: S1, S2. Regular rate and rhythm. ABDOMEN: Soft. No tenderness. Bilateral leg wounds have dried out. Surrounding swelling and redness has improved. LABS: Hemoglobin is 12.3, white count 10.2, BUN of 15, creatinine 0.69. DIAGNOSTIC IMPRESSION AND PLAN: 1. Patient with bilateral lower extremity venostasis ulcers with secondary cellulitis. Patient is clinically responding to the cefazolin; to continue. Finish therapy with oral Keflex. 2. Positive blood culture with Staphylococcus epidermidis, likely contaminant. No need for further therapy for the same. MMODL / IJN: [id number] /
[2020-05-24] MEDS: LEVOTHYROXINE 100 MCG TAB PO SCH (05:18)
[2020-05-24 06:09] LABS: Basophils # (A) 0.1 k/uL (0-0.2); Basophils % (A) 1 %; Eosinophils # (A) 0.5 k/uL (0-0.7); Eosinophils % (A) 5 %; HCT 39.8 % (34.0-46.0); Lymphocytes # (A) 1.2 k/uL (1.0-4.8); Lymphocytes % (A) 12 %; MCH 29.5 pg (25.0-35.0); MCHC 32.6 g/dL (31.0-37.0); MCV 90.5 fL (80.0-100.0); Mean Platelet Volume 6.7; Monocytes # (A) 0.8 k/uL (0-1.0); Monocytes % (A) 8 %; Neutrophils # (A) 7.3 k/uL (1.3-7.7); Neutrophils % (A) 74 %; Platelet Count 270 k/uL (150-450); RBC 4.39 m/uL (3.80-5.40); RDW 13.4 % (11.5-15.5)
[2020-05-24 06:34] LABS: INR 1.1 (<1.2); Partial Thromboplastin Time 24.9 sec (22.0-30.0); Prothrombin Time 11.2 sec (9.0-12.0)
[2020-05-24] MEDS: FUROSEMIDE 40 MG TAB PO SCH ×2 (08:06→16:52)
[2020-05-24] MEDS: APIXABAN 5 MG TAB PO SCH ×2 (08:06→21:48)
[2020-05-24] MEDS: POTASSIUM CHLORIDE ER 20 MEQ TAB.ER PO SCH ×2 (08:06→21:48)
[2020-05-24] MEDS: METOPROLOL TARTRATE 12.5 MG TAB PO SCH ×2 (08:06→21:47)
[2020-05-24 10:15] LABS: African American GFR (CKD) 94.8 (60.0-200.0); Anion Gap 8.6 mmol/L (4.00-12.00); BUN/Creat Ratio 24.29 Ratio (12.00-20.00); Calcium 8.3 mg/dL (8.7-10.3); Carbon Dioxide 33.4 mmol/L (21.6-31.8); Non-African American GFR(CKD) 81.8 (60.0-200.0); Potassium 3.9 mmol/L (3.5-5.5)
--- NOTE | 2020-05-24 14:14 | P.PN ---
Subjective Progress Note Date: 05/24/20 05/23/2020 this is an 79-year-old female from subacute rehab admitted with bilateral extremity wounds/cellulitis. Evaluated by infectious disease, recommendations noted and appreciated. Maintained on daptomycin. Continues to have significant generalized weakness. Afebrile, normal WBC. Preliminary blood cultures reporting Staphylococcus auricularis. Initial blood cultures reported coagulase-negative staph. Complains of knee pain. Denies chest pain, palpitations or shortness of breath. Denies lightheadedness, dizziness or focal deficits. 05/24/2020 no overnight events. Antibiotics as per ID. Reports she did not get a chance to ambulate yesterday, feels weak. Evaluated by physical therapy;home with home care recommended at discharge. Objective - Vital Signs Vital signs: Vital Signs Temp 97.9 F 05/24/20 08:00 Pulse 73 05/24/20 08:00 Resp 18 05/24/20 08:00 BP 133/83 05/24/20 08:00 Pulse Ox 90 L 05/24/20 08:00 Intake & Output 05/23/20 05/24/20 05/24/20 18:59 06:59 18:59 Intake Total 200 Output Total 1300 1550 200 Balance -1100 -1550 -200 Intake: Oral 200 Output: Urine 1300 1550 200 Other: Voiding Method Diaper Diaper Incontinent External Catheter External Catheter # Voids 2 - Exam PHYSICAL EXAM: VITAL SIGNS: As above GENERAL: Sitting up in bed, no acute distress HEENT: Conjunctivae normal. eyes normal. NECK: No JVD. No thyroid enlargement. No LNs CARDIOVASCULAR: S1, S2 regular.. No murmur RESPIRATION: Breath sounds diminished in the bases. No rhonchi or crackles. ABDOMEN: Soft, nontender . No guarding. no masses palpable.Bowel sounds heard. LEGS: Bilateral lower extremities Chau wrap, clean dry and intact, popped blisters on bilateral soles. PSYCHIATRY: Alert and oriented X3, mood and affect normal. NERVOUS SYSTEM: Cranial N 2-12 grossly normal. Moves all 4 limbs. No focal deficits. Strength and sensation grossly intact.. Skin: Warm and dry, no rash - Labs CBC & Chem 7: 05/24/20 05:28 05/24/20 05:28 Labs: Abnormal Lab Results - Last 24 Hours (Table) 05/24/20 Range/Units 05:28 Carbon Dioxide 33.4 H (21.6-31.8) mmol/L BUN/Creatinine Ratio 24.29 H (12.00-20.00) Ratio Calcium 8.3 L (8.7-10.3) mg/dL Microbiology - Last 24 Hours (Table) 05/20/20 12:10 Blood Culture Gram Stain - Final Blood Blood Culture - Final Staph hominis sub sp. hominis 05/23/20 06:39 Blood Culture - Preliminary Blood No Growth after 24 hours 05/20/20 12:37 Blood Culture Gram Stain - Final Blood Blood Culture - Final Staphylococcus auricularis Assessment and Plan Assessment: Bilateral lower extremity venous stasis ulcers with secondary cellulitis, failed outpatient treatment initial blood culture with coagulase-negative staph suspect contamination. Another blood culture reporting Staphylococcus auricularis. Hypertension Hypothyroidism Hyperlipidemia Chronic intermittent asthma COPD, no acute exacerbation Chronic paroximal atrial fibrillation, chronic paroximal atrial flutter CPAP and uses CPAP Plan: Continue on current medication regime ,monitoring and symptomatic treatment. Discharge planning in progress for tomorrow pending final DC recommendations and clearance from ID. The impression and plan of care has been dictated as directed. : I performed a history and examination of this patient, discussed the same with the dictator. I agree with the dictator's note ,documented as a scribe. Any additional findings or plans will be noted.
[2020-05-24] MEDS: MONTELUKAST 10 MG TAB PO SCH (21:47)
[2020-05-24] MEDS: PRAVASTATIN SODIUM 20 MG TAB PO SCH (21:48)
[2020-05-24 22:00] LABS: Glucose,Whole Blood 115 mg/dL (75-99)
--- NOTE | 2020-05-24 22:09 | PN ---
PROGRESS NOTE DATE OF SERVICE: 05/24/2020 REASON FOR FOLLOWUP: Bilateral lower extremity cellulitis. INTERVAL HISTORY: The patient is currently afebrile. The patient is breathing comfortably. The patient denies having any chest pain or shortness of breath. Occasional cough. No abdominal pain or pain to the lower extremity. PHYSICAL EXAMINATION: Blood pressure 124/59, pulse of 80, temperature 97.9. She is 98% on room air. General description is an elderly female lying in bed in no distress. RESPIRATORY SYSTEM: Unlabored breathing. Clear to auscultation anteriorly. HEART: S1, S2. Regular rate and rhythm. ABDOMEN: Soft. No tenderness. Legs are currently wrapped. No obvious drainage on the dressing. LABS: Hemoglobin is 13, hemoglobin 10.0. Creatinine 0.7. Blood culture repeat has been negative. DIAGNOSTIC IMPRESSION AND PLAN: Patient with bilateral lower extremity venostasis ulcers with secondary cellulitis in this patient with overall improvement on cefazolin; to continue. Local care with Aquacel Silver dressing. Finish therapy with oral Keflex. Continue with supportive care. MMODL / IJN: [id number] /
[2020-05-25] MEDS: LEVOTHYROXINE 100 MCG TAB PO SCH (05:50)
[2020-05-25] MEDS: METOPROLOL TARTRATE 12.5 MG TAB PO SCH (08:17)
[2020-05-25] MEDS: POTASSIUM CHLORIDE ER 20 MEQ TAB.ER PO SCH (08:18)
[2020-05-25] MEDS: APIXABAN 5 MG TAB PO SCH (08:18)
[2020-05-25] MEDS: FUROSEMIDE 40 MG TAB PO SCH (08:18)
--- NOTE | 2020-05-25 10:54 | P.DS ---
Providers Date of admission: 05/20/20 14:22 Expected date of discharge: 05/25/20 Attending physician: Sriram Palm MD Consults: 05/21/20 14:44 Consult Physician Routine Consulting Provider: Anjali Kapadia Consult Reason/Comments: cellulitis LE Do you want consulting provider notified?: Yes Primary care physician: Jannette Palm [facility] Course: Final Diagnoses: Bilateral lower extremity venous stasis ulcers with secondary cellulitis, failed outpatient treatment initial blood culture with coagulase-negative staph suspect contamination. (Another blood culture reporting Staphylococcus auricularis.) Hypertension Hypothyroidism Hyperlipidemia Chronic intermittent asthma COPD, no acute exacerbation Chronic paroximal atrial fibrillation, chronic paroximal atrial flutter Sleep apnea uses CPAP 05/23/2020 this is an 79-year-old female from subacute rehab admitted with bilateral extremity wounds/cellulitis. Evaluated by infectious disease, recommendations noted and appreciated. Maintained on daptomycin. Continues to have significant generalized weakness. Afebrile, normal WBC. Preliminary blood cultures reporting Staphylococcus auricularis. Initial blood cultures reported coagulase-negative staph. Complains of knee pain. Denies chest pain, palpitations or shortness of breath. Denies lightheadedness, dizziness or focal deficits. 05/24/2020 no overnight events. Antibiotics as per ID. Reports she did not get a chance to ambulate yesterday, feels weak. Evaluated by physical therapy;home with home care recommended at discharge. Maintained on ceftezolin with significant clinical improvement. Patient will be discharged today to subacute rehab in a stable condition with guarded prognosis pending final DC recommendations and clearance from infectious disease. The impression and plan of care has been dictated as directed. : I performed a history and examination of this patient, discussed the same with the dictator. I agree with the dictator's note ,documented as a scribe. Any additional findings or plans will be noted. Patient Condition at Discharge: Stable Plan - Discharge Summary Discharge Rx Participant: Yes New Discharge Prescriptions: Continue Pravastatin Sodium [Pravachol] 20 mg PO HS Montelukast [Singulair] 10 mg PO HS Levothyroxine Sodium [Synthroid] 100 mcg PO DAILY Potassium Chloride ER [K-Dur 10] 20 meq PO BID Furosemide [Lasix] 40 mg PO BID Apixaban [Eliquis] 5 mg PO BID Metoprolol Tartrate 12.5 mg PO BID Discharge Medication List Levothyroxine Sodium [Synthroid] 100 mcg PO DAILY 10/05/19 [History] Montelukast [Singulair] 10 mg PO HS 10/05/19 [History] Pravastatin Sodium [Pravachol] 20 mg PO HS 10/05/19 [History] Furosemide [Lasix] 40 mg PO BID 11/18/19 [History] Potassium Chloride ER [K-Dur 10] 20 meq PO BID 11/18/19 [History] Apixaban [Eliquis] 5 mg PO BID 02/25/20 [History] Metoprolol Tartrate 12.5 mg PO BID 05/20/20 [History] Follow up Appointment(s)/Referral(s): Jannette Palm DO [Primary Care Provider] - 1 Week (After DC from subacute rehab) Patient Instructions/Handouts: Chronic Wounds (DC) Activity/Diet/Wound Care/Special Instructions: Medi PH antibiotics/Wound Care as per ID CBC, BMP in 3 days Discharge Disposition: TRANSFER TO SNF/ECF
[2020-05-25 13:57] VITALS: BP 112/69; PULSE 61; RESP 16; TEMP 98
--- NOTE | 2020-05-25 15:18 | CDI ---
Documentation Clarification Form Date: 05/25/2020 03:12:50 PM From: Evette AndersonWebberYADIRA whitaker, CCDS Admit Date: 05/20/2020 02:22:00 PM Patient Name: Nicole Goldsmith Visit Number: [id number] Discharge Date: ATTENTION: The Clinical Documentation Specialists (CDI) and [facility] Coding Staff appreciate your assistance in clarifying documentation. Please respond to the clarification below the line at the bottom and electronically sign. The CDI & [facility] Coding staff will review the response and follow-up if needed. Please note: Queries are made part of the Legal Health Record. If you have any questions, please contact the author of this message via ITS. Dr. Sriram Palm: Atrial Flutter is documented in the 05/25 Discharge Summary as "Chronic paroxysmal atrial flutter." History/Risk factors: Hypertension, Hypothyroidism, Hyperlipidemia, Chronic intermittent asthma, COPD, Chronic paroxysmal atrial fibrillation and sleep apnea. Clinical Indicators: Presented to the ED on 05/20 with weakness & difficulty ambulating via EMS. Worsening pain, swelling & skin breakdown of bilateral lower legs, admitted with Cellulitis, Ulcers & venous stasis of bilateral lower legs for antibiotic treatment. EKG/telemetry: 05/20: Sinus rhythm with PACs, Possible left atrial enlargement, Nonspecific ST & T wave abnormality. Home meds: Pravachol, K Dur, Singulair, Metoprolol Tartrate, Synthroid, Lasix, Eliquis & keflex Treatment: IV Clinidamycin, po Tylenol, IV Daptomycin, IV Cefazolin, po home meds. In your professional opinion, in order to capture the severity of condition; can you please clarify the type of Atrial Flutter if known? Typical/Type I Atypical/Type II Other, please specify Unable to determine (Last Revision: August 2017) Typical/Type I MTDD
--- NOTE | 2020-05-25 15:22 | PN ---
PROGRESS NOTE DATE OF SERVICE: 05/25/2020 REASON FOR FOLLOWUP: Bilateral lower extremity venostasis ulcers and cellulitis. INTERVAL HISTORY: Patient is currently afebrile. The patient is breathing comfortably. Denies having any chest pain or shortness of breath or cough. No abdominal pain or diarrhea. PHYSICAL EXAMINATION: Blood pressure is 112/69 with a pulse of 61, temperature 98. She is 97% on room air. General description is an elderly female lying in bed in no distress. RESPIRATORY SYSTEM: Unlabored breathing. Clear to auscultation anteriorly. HEART: S1, S2. Regular rate and rhythm. ABDOMEN: Soft. No tenderness. Legs are currently wrapped. No obvious drainage on the dressing. DIAGNOSTIC IMPRESSION AND PLAN: 1. Patient with bilateral extremity cellulitis. Overall improvement on cefazolin. Finish therapy with oral Keflex 500 mg q.8 hours for 7 days. 2. Lower extremity wounds. Continue wound care with Aquacel Silver dressing and Chau wrap. 3. Positive blood culture, likely contamination. MMODL / IJN: [id number] /
== END 2020-05-25 15:22 | DRG 300 ==
LOC: EC 11:55 → 5NMEDONC 14:22 → 4SSUR 16:07
PROVIDERS: ADMIT Family Medicine; ATTEND Family Medicine
DX: E11.51 Type 2 diabetes mellitus with diabetic peripheral angiopathy without gangrene (principal); I48.20 Chronic atrial fibrillation, unspecified; I48.3 Typical atrial flutter; L03.115 Cellulitis of right lower limb; L03.116 Cellulitis of left lower limb; L97.929 Non-pressure chronic ulcer of unspecified part of left lower leg with unspecified severity; L97.919 Non-pressure chronic ulcer of unspecified part of right lower leg with unspecified severity; I87.2 Venous insufficiency (chronic) (peripheral); E03.9 Hypothyroidism, unspecified; E78.5 Hyperlipidemia, unspecified; F32.9 Major depressive disorder, single episode, unspecified; F41.9 Anxiety disorder, unspecified; G47.30 Sleep apnea, unspecified; I11.0 Hypertensive heart disease with heart failure; Z96.651 Presence of right artificial knee joint; M19.90 Unspecified osteoarthritis, unspecified site; I50.9 Heart failure, unspecified; J44.9 Chronic obstructive pulmonary disease, unspecified; Z79.01 Long term (current) use of anticoagulants; Z79.899 Other long term (current) drug therapy; Z79.890 Hormone replacement therapy; Z88.6 Allergy status to analgesic agent; Z88.1 Allergy status to other antibiotic agents; Z88.2 Allergy status to sulfonamides; Z90.710 Acquired absence of both cervix and uterus; Z80.9 Family history of malignant neoplasm, unspecified; Z87.01 Personal history of pneumonia (recurrent); Z86.14 Personal history of Methicillin resistant Staphylococcus aureus infection; Z90.49 Acquired absence of other specified parts of digestive tract; Z90.89 Acquired absence of other organs; Z98.890 Other specified postprocedural states; Z82.49 Family history of ischemic heart disease and other diseases of the circulatory system
CPT/HCPCS: 36415; 80048; 80053; 83605; 83735; 83880; 85025; 85610; 85730; 86140; 87040; 87077; 87186; 93005; 96365; 99285

== ENCOUNTER 2020-06-12 20:22 | Emergency (ER) | payer MEDICARE ==
[2020-06-12 20:34] VITALS: TEMP 97.8
[2020-06-12] MEDS ORDERED: SODIUM CHLORIDE 0.9% 500 ML 500 ML IV STA (20:40)
--- NOTE | 2020-06-12 21:07 | ED ---
Weakness HPI - General Chief complaint: Weakness Stated complaint: Weakness Time Seen by Provider: 06/12/20 20:33 Source: patient, EMS Mode of arrival: EMS Limitations: no limitations - History of Present Illness Initial comments: 79 year-old female patient presents to the emergency department for evaluation of leg weakness. States that today she feels like her legs cannot hold her. She denies any headache, visual disturbance, dizziness, numbness, tingling to her extremities, chest pain, shortness of breath. Denies any hematuria, dysuria, urinary frequency, urinary urgency. She denies any recent falls or head injury. She states she does have cellulitis to the bilateral lower extremities for the last 3 years. States they usually apply creams and wrap them. Patient denies any recent rash, fever, chills, cough, abdominal pain, nausea, vomiting, diarrhea, constipation, back pain, or any other complaints. - Related Data Home Medications Medication Instructions Recorded Confirmed Levothyroxine Sodium [Synthroid] 100 mcg PO DAILY 10/05/19 06/12/20 Montelukast [Singulair] 10 mg PO HS 10/05/19 06/12/20 Pravastatin Sodium [Pravachol] 20 mg PO HS 10/05/19 06/12/20 Furosemide [Lasix] 40 mg PO BID 11/18/19 06/12/20 Apixaban [Eliquis] 5 mg PO BID 02/25/20 06/12/20 Metoprolol Tartrate 12.5 mg PO BID 05/20/20 06/12/20 Potassium Chloride ER [K-Dur 20] 20 meq PO BID 06/12/20 06/12/20 Allergies Allergy/AdvReac Type Severity Reaction Status Date / Time thallium-201 Allergy Intermediate Rash/Hives Verified 06/12/20 21:56 Sulfa (Sulfonamide AdvReac Severe low Verified 06/12/20 21:56 Antibiotics) hemoglobin aspirin AdvReac Mild blood in Verified 06/12/20 21:56 stool vancomycin AdvReac Rash/Hives Verified 06/12/20 21:56 steri strips AdvReac Mild blisters Uncoded 06/12/20 21:56 skin Review of Systems ROS Statement: Those systems with pertinent positive or pertinent negative responses have been documented in the HPI. ROS Other: All systems not noted in ROS Statement are negative. Past Medical History Past Medical History: Atrial Fibrillation, Atrial Flutter, Asthma, Blood Disorder, Heart Failure, COPD, Diabetes Mellitus, Hyperlipidemia, Hypertension, Osteoarthritis (OA), Pneumonia, Skin Disorder, Sleep Apnea/CPAP/BIPAP Additional Past Medical History / Comment(s): heart valve problem-not sure of name, sleep apnea-no cpap used, anemia, degenerative arthritis, diet controlled dm-patient states does not have dm, urinary incontinence, uses walker. History of Any Multi-Drug Resistant Organisms: MRSA Date of last positivie culture/infection: 06/27/18 MDRO Source:: Right Leg Past Surgical History: Appendectomy, Bariatric Surgery, Hysterectomy, Joint Replacement, Orthopedic Surgery, Tonsillectomy Additional Past Surgical History / Comment(s): Picc line insertion/later r emoved, lap band, right knee replacement x 2 & left knee replaced with revision, L ganglion wirst surgery, left ankle ORIF, right trigger thumb surgery, bilateral cataracts. Past Anesthesia/Blood Transfusion Reactions: Previous Problems w/ Anesthesia Additional Past Anesthesia/Blood Transfusion Reaction / Comment(s): difficulty waking up Past Psychological History: Anxiety, Depression Smoking Status: Never smoker Past Alcohol Use History: Rare Past Drug Use History: None Reported - Past Family History Daughter(s) Family Medical History: Deep Vein Thrombosis (DVT), Pulmonary Embolus Father Family Medical History: Cancer Mother Additional Family Medical History / Comment(s): Mother had hypotension. General Exam Limitations: no limitations General appearance: alert, in no apparent distress, other (this is a well- developed, well-nourished elderly female patient in no acute distress.) Eye exam: Present: normal appearance, PERRL, EOMI. Absent: scleral icterus, conjunctival injection, nystagmus, periorbital swelling ENT exam: Present: normal exam, normal oropharynx, mucous membranes moist Respiratory exam: Present: normal lung sounds bilaterally. Absent: respiratory distress, wheezes, rales, rhonchi, stridor Cardiovascular Exam: Present: regular rate, normal rhythm, normal heart sounds. Absent: systolic murmur, diastolic murmur, rubs, gallop, clicks GI/Abdominal exam: Present: soft, normal bowel sounds. Absent: distended, tenderness, guarding, rebound, rigid Extremities exam: Present: full ROM, normal capillary refill, other (there is erythema, scaling, and swelling to the bilateral lower extremities.). Absent: tenderness, pedal edema, joint swelling, calf tenderness Neurological exam: Present: alert, oriented X3, CN II-XII intact Psychiatric exam: Present: normal affect, normal mood Skin exam: Present: warm, dry, intact, normal color. Absent: rash Course Vital Signs 06/12/20 06/12/20 20:32 21:34 Temperature 97.8 F Pulse Rate 76 74 Respiratory 18 16 Rate Blood Pressure 103/56 111/60 O2 Sat by Pulse 98 98 Oximetry Medical Decision Making - Medical Decision Making 79-year-old female patient presents to the emergency department today for evaluation of leg weakness. Physical examination does reveal erythema and scaling of the skin over the anterior lower extremities which patient states at the present for the last 3 years. She is afebrile normal vital signs. Labs are unremarkable, mild elevated white blood cell count at 11,000. Chest x-ray is negative. Urinalysis shows no signs of infection. I did discuss findings and results with the patient. We will discharge home to follow-up with her primary care physician tomorrow. Return parameters discussed in detail. She verbalizes understanding and agrees with this plan. Case discussed in detail with my attending Dr. Tanner. - Lab Data Result diagrams: 06/12/20 21:06 06/12/20 21:06 Lab Results 06/12/20 06/12/20 06/12/20 Range/Units 21:06 21:06 21:06 WBC 11.0 H (3.8-10.6) k/uL RBC 4.41 (3.80-5.40) m/uL Hgb 12.9 (11.4-16.0) gm/dL Hct 39.6 (34.0-46.0) % MCV 89.9 (80.0-100.0) fL MCH 29.2 (25.0-35.0) pg MCHC 32.5 (31.0-37.0) g/dL RDW 13.3 (11.5-15.5) % Plt Count 272 (150-450) k/uL MPV 7.1 Neutrophils % 78 % Lymphocytes % 11 % Monocytes % 7 % Eosinophils % 1 % Basophils % 1 % Neutrophils # 8.6 H (1.3-7.7) k/uL Lymphocytes # 1.2 (1.0-4.8) k/uL Monocytes # 0.8 (0-1.0) k/uL Eosinophils # 0.1 (0-0.7) k/uL Basophils # 0.1 (0-0.2) k/uL PT 10.4 (9.0-12.0) sec INR 1.0 (<1.2) APTT 25.4 (22.0-30.0) sec Sodium (137-145) mmol/L Potassium (3.5-5.1) mmol/L Chloride (98-107) mmol/L Carbon Dioxide (22-30) mmol/L Anion Gap mmol/L BUN (7-17) mg/dL Creatinine (0.52-1.04) mg/dL Est GFR (CKD-EPI)AfAm (>60 ml/min/1.73 sqM) Est GFR (CKD-EPI)NonAf (>60 ml/min/1.73 sqM) Glucose (74-99) mg/dL Plasma Lactic Acid Maulik (0.7-2.0) mmol/L Calcium (8.4-10.2) mg/dL Magnesium (1.6-2.3) mg/dL Total Bilirubin (0.2-1.3) mg/dL AST (14-36) U/L ALT (4-34) U/L Alkaline Phosphatase (38-126) U/L Troponin I (0.000-0.034) ng/mL Total Protein (6.3-8.2) g/dL Albumin (3.5-5.0) g/dL TSH (0.465-4.680) mIU/L Urine Color Light Yellow Urine Appearance Clear (Clear) Urine pH 6.5 (5.0-8.0) Ur Specific [place] 1.008 (1.001-1.035) Urine Protein Negative (Negative) Urine Glucose (UA) Negative (Negative) Urine Ketones Negative (Negative) Urine Blood Negative (Negative) Urine Nitrite Negative (Negative) Urine Bilirubin Negative (Negative) Urine Urobilinogen <2.0 (<2.0) mg/dL Ur Leukocyte Esterase Negative (Negative) 06/12/20 06/12/20 06/12/20 Range/Units 21:06 21:06 21:06 WBC (3.8-10.6) k/uL RBC (3.80-5.40) m/uL Hgb (11.4-16.0) gm/dL Hct (34.0-46.0) % MCV (80.0-100.0) fL MCH (25.0-35.0) pg MCHC (31.0-37.0) g/dL RDW (11.5-15.5) % Plt Count (150-450) k/uL MPV Neutrophils % % Lymphocytes % % Monocytes % % Eosinophils % % Basophils % % Neutrophils # (1.3-7.7) k/uL Lymphocytes # (1.0-4.8) k/uL Monocytes # (0-1.0) k/uL Eosinophils # (0-0.7) k/uL Basophils # (0-0.2) k/uL PT (9.0-12.0) sec INR (<1.2) APTT (22.0-30.0) sec Sodium 136 L (137-145) mmol/L Potassium 4.2 (3.5-5.1) mmol/L Chloride 97 L (98-107) mmol/L Carbon Dioxide 32 H (22-30) mmol/L Anion Gap 7 mmol/L BUN 17 (7-17) mg/dL Creatinine 0.72 (0.52-1.04) mg/dL Est GFR (CKD-EPI)AfAm >90 (>60 ml/min/1.73 sqM) Est GFR (CKD-EPI)NonAf 80 (>60 ml/min/1.73 sqM) Glucose 92 (74-99) mg/dL Plasma Lactic Acid Maulik 0.9 (0.7-2.0) mmol/L Calcium 9.1 (8.4-10.2) mg/dL Magnesium 2.0 (1.6-2.3) mg/dL Total Bilirubin 1.1 (0.2-1.3) mg/dL AST 28 (14-36) U/L ALT 12 (4-34) U/L Alkaline Phosphatase 91 (38-126) U/L Troponin I <0.012 (0.000-0.034) ng/mL Total Protein 6.2 L (6.3-8.2) g/dL Albumin 3.5 (3.5-5.0) g/dL TSH 2.630 (0.465-4.680) mIU/L Urine Color Urine Appearance (Clear) Urine pH (5.0-8.0) Ur Specific [place] (1.001-1.035) Urine Protein (Negative) Urine Glucose (UA) (Negative) Urine Ketones (Negative) Urine Blood (Negative) Urine Nitrite (Negative) Urine Bilirubin (Negative) Urine Urobilinogen (<2.0) mg/dL Ur Leukocyte Esterase (Negative) - EKG Data -: EKG Interpreted by Me EKG Comments: EKG obtained at 2101 shows normal sinus rhythm with a ventricular rate is 73, ID interval 156, QRS duration 66, QT 404, QTC 445. No evidence of ST elevation or depression. - Radiology Data Radiology results: report reviewed, image reviewed 2 views of the chest are obtained. Report was reviewed in its entirety. Impression by Dr. Henriquez shows mild chronic elevated right diaphragm. No acute lung disease. Disposition Clinical Impression: Weakness Disposition: HOME SELF-CARE Condition: Good Instructions (If sedation given, give patient instructions): Weakness (ED) Additional Instructions: Follow-up with your primary care physician tomorrow. Return to the emergency department for any new, worsening, or concerning symptoms. Is patient prescribed a controlled substance at d/c from ED?: No Referrals: Jannette Palm DO [Primary Care Provider] - 1-2 days Time of Disposition: 22:42
[2020-06-12 21:17] LABS: Basophils # (A) 0.1 k/uL (0-0.2); Basophils % (A) 1 %; Eosinophils # (A) 0.1 k/uL (0-0.7); Eosinophils % (A) 1 %; HCT 39.6 % (34.0-46.0); HGB 12.9 gm/dL (11.4-16.0); Lymphocytes # (A) 1.2 k/uL (1.0-4.8); Lymphocytes % (A) 11 %; MCH 29.2 pg (25.0-35.0); MCHC 32.5 g/dL (31.0-37.0); MCV 89.9 fL (80.0-100.0); Mean Platelet Volume 7.1; Monocytes # (A) 0.8 k/uL (0-1.0); Monocytes % (A) 7 %; Neutrophils # (A) 8.6 k/uL (1.3-7.7); Neutrophils % (A) 78 %; Platelet Count 272 k/uL (150-450); RBC 4.41 m/uL (3.80-5.40); RDW 13.3 % (11.5-15.5)
[2020-06-12 21:24] LABS: Partial Thromboplastin Time 25.4 sec (22.0-30.0); Prothrombin Time 10.4 sec (9.0-12.0)
[2020-06-12 21:32] LABS: ALT 12 U/L (4-34); AST 28 U/L (14-36); African American GFR (CKD) >90 (>60 ml/min/1.73 sqM); Albumin 3.5 g/dL (3.5-5.0); Alkaline Phosphatase 91 U/L (38-126); Anion Gap 7 mmol/L; Blood Urea Nitrogen 17 mg/dL (7-17); Calcium 9.1 mg/dL (8.4-10.2); Carbon Dioxide 32 mmol/L (22-30); Chloride 97 mmol/L (98-107); Glucose 92 mg/dL (74-99); Non-African American GFR(CKD) 80 (>60 ml/min/1.73 sqM); Potassium 4.2 mmol/L (3.5-5.1); Sodium 136 mmol/L (137-145); Total Bilirubin 1.1 mg/dL (0.2-1.3); Total Protein 6.2 g/dL (6.3-8.2)
--- NOTE | 2020-06-12 21:35 | XR ---
EXAMINATION TYPE: XR chest 2V DATE OF EXAM: 06/12/2020 COMPARISON: 04/24/2020 HISTORY: Short of breath TECHNIQUE: 2 views FINDINGS: There is no heart failure nor confluent pneumonic infiltrate. Costophrenic angles are clear . Thoracic aorta is atheromatous. There is slight elevated right diaphragm. IMPRESSION: Mild chronic elevated right diaphragm. No acute lung disease.
[2020-06-12 21:54] VITALS: RESP 16
[2020-06-12 22:08] LABS: Appearance,Urine Clear (Clear); Bilirubin,Urine Negative (Negative); Blood,Urine Negative (Negative); Color,Urine Light Yellow; Glucose,Urine (UA) Negative (Negative); Ketones,Urine Negative (Negative); Leukocyte Esterase,Urine Negative (Negative); Nitrite,Urine Negative (Negative); PH, Urine 6.5 (5.0-8.0); Protein,Urine Negative (Negative); Specific Gravity,Urine 1.008 (1.001-1.035); Urobilinogen,Urine <2.0 mg/dL (<2.0)
[2020-06-13 00:21] VITALS: BP 101/49; PULSE 78
== END 2020-06-12 23:00 | disposition home or self-care (01) ==
LOC: EC 20:22
DX: R53.1 Weakness (principal); I48.91 Unspecified atrial fibrillation; I48.92 Unspecified atrial flutter; I11.0 Hypertensive heart disease with heart failure; I50.9 Heart failure, unspecified; J44.9 Chronic obstructive pulmonary disease, unspecified; E78.5 Hyperlipidemia, unspecified; E11.36 Type 2 diabetes mellitus with diabetic cataract; G47.30 Sleep apnea, unspecified; Z79.890 Hormone replacement therapy; Z79.51 Long term (current) use of inhaled steroids; Z79.01 Long term (current) use of anticoagulants; Z79.899 Other long term (current) drug therapy; Z88.1 Allergy status to other antibiotic agents; Z88.2 Allergy status to sulfonamides; Z88.6 Allergy status to analgesic agent; Z91.048 Other nonmedicinal substance allergy status; Z98.84 Bariatric surgery status; Z99.89 Dependence on other enabling machines and devices
CPT/HCPCS: 36415; 71046; 80053; 81003; 83605; 83735; 84443; 84484; 85025; 85610; 85730; 93005; 99285

== ENCOUNTER → 2020-09-13 | Outpatient (CLI) | payer MEDICARE ==
[2020-09-13 22:16] LABS: Basophils # (A) 0.07 X 10*3/uL (0.00-0.10); Basophils % (A) 0.8 %; Eosinophils # (A) 0.06 X 10*3/uL (0.04-0.35); Eosinophils % (A) 0.7 %; HCT 40.5 % (37.2-46.3); HGB 12.5 g/dL (12.0-15.0); Lymphocytes # (A) 1.19 X 10*3/uL (0.90-5.00); Lymphocytes % (A) 13.3 %; MCH 29.5 pg (27.0-32.0); MCHC 30.9 g/dL (32.0-37.0); MCV 95.5 fL (80.0-97.0); Mean Platelet Volume 10.7 fL (9.5-12.2); Monocytes % (A) 8.9 %; Neutrophils # (A) 6.78 X 10*3/uL (1.80-7.70); Neutrophils % (A) 75.5 %; Platelet Count 217 X 10*3/uL (140-440); RBC 4.24 X 10*6/uL (4.10-5.20); RDW 14.2 % (11.5-14.5); WBC 8.97 X 10*3/uL (4.50-10.00)
[2020-09-14 05:23] LABS: African American GFR (CKD) 105.2 (60.0-200.0); Albumin 3.9 g/dL (3.80-4.90); Albumin/Globulin Ratio 2.17 (1.60-3.17); Anion Gap 13.7 mmol/L (4.00-12.00); Carbon Dioxide 26.3 mmol/L (21.6-31.8); Globulin 1.8 g/dL (1.6-3.3); Non-African American GFR(CKD) 90.8 (60.0-200.0); Potassium 4.6 mmol/L (3.5-5.5); Total Protein 5.7 g/dL (6.2-8.2)
[2020-09-14 05:24] LABS: Chol/HDL Ratio 2.59; LDL Cholesterol,Calculated 87.2 mg/dL (0.0-131.0); Magnesium 1.7 mg/dL (1.5-2.4); VLDL Calculation 12.8 mg/dL (5.00-40.00)
== END | disposition home or self-care (01) ==
LOC: LABWHC1 11:51
PROVIDERS: ATTEND Internal Medicine Cardiovascular Disease
DX: I11.0 Hypertensive heart disease with heart failure (principal); E03.9 Hypothyroidism, unspecified; E78.5 Hyperlipidemia, unspecified; I50.9 Heart failure, unspecified
CPT/HCPCS: 36415; 80053; 80061; 83735; 83880; 84443; 85025

== ENCOUNTER → 2020-12-02 | Outpatient (CLI) | payer MEDICARE ==
[2020-12-02 23:56] LABS: African American GFR (CKD) 94.2 (60.0-200.0); Anion Gap 8.9 mmol/L (4.00-12.00); BUN/Creat Ratio 22.86 Ratio (12.00-20.00); Calcium 8.7 mg/dL (8.7-10.3); Carbon Dioxide 32.1 mmol/L (21.6-31.8); Non-African American GFR(CKD) 81.3 (60.0-200.0); Potassium 4.7 mmol/L (3.5-5.5)
== END | disposition home or self-care (01) ==
LOC: LABWHC1 13:34
PROVIDERS: ATTEND Internal Medicine Cardiovascular Disease
DX: I50.32 Chronic diastolic (congestive) heart failure (principal)
CPT/HCPCS: 36415; 80048

== ENCOUNTER 2021-04-28 13:59 | Inpatient (IN) | payer MEDICARE ==
--- NOTE | 2021-04-28 14:55 | ED ---
General Adult HPI - General Chief complaint: Extremity Injury, Lower Stated complaint: Rt Leg Injury Time Seen by Provider: 04/28/21 14:14 Source: patient, EMS, RN notes reviewed Mode of arrival: EMS Limitations: physical limitation - History of Present Illness Initial comments: 80-year-old female presents to the emergency department via EMS from home for evaluation of injury to the right lower extremity. Patient states she fell getting out of bed this afternoon and cut her leg on the rail. Patient states she lives at home with her daughter and ambulates using a walker. States this is the second fall of the day. EMS assisted her back into bed earlier as she was uninjured. No loss of consciousness. Denies head, neck, or back pain. No further injuries. Tetanus status unknown. Additional information: Patient's daughter was contacted and she reports the patient has had 4 falls over the course of the last 2 days requiring EMS assistance to get the patient upright. She states the patient is progressively declining. Daughter further articulates that the patient is unable to care for herself at home. She states the patient is incontinent of urine and stool; spends hours in soiled depends. Family is not available to provide care for this patient admits seeking assistance with jail placement. - Related Data Home Medications Medication Instructions Recorded Confirmed Levothyroxine Sodium [Synthroid] 100 mcg PO DAILY 10/05/19 04/28/21 Apixaban [Eliquis] 5 mg PO BID 02/25/20 04/28/21 Metoprolol Tartrate 25 mg PO BID 05/20/20 04/28/21 Losartan [Cozaar] 25 mg PO DAILY 04/28/21 04/28/21 Allergies Allergy/AdvReac Type Severity Reaction Status Date / Time thallium-201 Allergy Intermediate Rash/Hives Verified 04/28/21 16:03 Sulfa (Sulfonamide AdvReac Severe low Verified 04/28/21 16:03 Antibiotics) hemoglobin aspirin AdvReac Mild blood in Verified 04/28/21 16:03 stool vancomycin AdvReac Rash/Hives Verified 04/28/21 16:03 steri strips AdvReac Mild blisters Uncoded 04/28/21 16:03 skin Review of Systems ROS Statement: Those systems with pertinent positive or pertinent negative responses have been documented in the HPI. ROS Other: All systems not noted in ROS Statement are negative. Past Medical History Past Medical History: Atrial Fibrillation, Atrial Flutter, Asthma, Blood Disorder, Heart Failure, COPD, Diabetes Mellitus, Hyperlipidemia, Hypertension, Osteoarthritis (OA), Pneumonia, Skin Disorder, Sleep Apnea/CPAP/BIPAP Additional Past Medical History / Comment(s): heart valve problem-not sure of name, sleep apnea-no cpap used, anemia, degenerative arthritis, diet controlled dm-patient states does not have dm, urinary incontinence, uses walker. History of Any Multi-Drug Resistant Organisms: MRSA Date of last positivie culture/infection: 06/27/18 MDRO Source:: Right Leg Past Surgical History: Appendectomy, Bariatric Surgery, Hysterectomy, Joint Replacement, Orthopedic Surgery, Tonsillectomy Additional Past Surgical History / Comment(s): Picc line insertion/later removed, lap band, right knee replacement x 2 & left knee replaced with revisio n, L ganglion wirst surgery, left ankle ORIF, right trigger thumb surgery, bilateral cataracts. Past Anesthesia/Blood Transfusion Reactions: Previous Problems w/ Anesthesia Additional Past Anesthesia/Blood Transfusion Reaction / Comment(s): difficulty waking up Past Psychological History: Anxiety, Depression Smoking Status: Never smoker Past Alcohol Use History: Rare Past Drug Use History: None Reported - Past Family History Daughter(s) Family Medical History: Deep Vein Thrombosis (DVT), Pulmonary Embolus Father Family Medical History: Cancer Mother Additional Family Medical History / Comment(s): Mother had hypotension. General Exam Limitations: physical limitation General appearance: alert, in no apparent distress, obese, other (This is a well-developed, well-nourished female in no acute distress. Patient does appear unkempt with poor hygeine. Initial temperature 97.5, pulse 82, respirations 18, blood pressure 146/78, pulse ox 99% on room air.) Head exam: Present: atraumatic, normocephalic, normal inspection Eye exam: Present: normal appearance, PERRL, EOMI. Absent: scleral icterus, conjunctival injection, periorbital swelling Neck exam: Present: normal inspection. Absent: tenderness, meningismus, lymphadenopathy Respiratory exam: Present: normal lung sounds bilaterally. Absent: respiratory distress, wheezes, rales, rhonchi, stridor Cardiovascular Exam: Present: regular rate, normal rhythm, normal heart sounds. Absent: systolic murmur, diastolic murmur, rubs, gallop, clicks GI/Abdominal exam: Present: soft, normal bowel sounds. Absent: distended, tenderness, guarding, rebound, rigid Extremities exam: Present: normal capillary refill, pedal edema, other (Si gnificant bilateral lower extremity edema and erythema which patient states is normal for her) Right Lower Leg exam: Present: laceration (6 cm curvilinear laceration to the anterior aspect of the right lower extremity; no active bleeding. Distal range of motion and sensation intact distally. +2 pedal pulses.) Neurovascular tendon exam: Present: no vascular compromise. Absent: pulse deficit, abnormal cap refill, motor deficit, sensory deficit Back exam: Present: normal inspection. Absent: paraspinal tenderness, vertebral tenderness Neurological exam: Present: alert, oriented X3 Psychiatric exam: Present: normal affect, normal mood Skin exam: Present: warm, dry. Absent: rash Course Vital Signs 04/28/21 04/28/21 14:06 21:00 Temperature 97.5 F L Pulse Rate 82 88 Respiratory 18 16 Rate Blood Pressure 146/78 137/68 O2 Sat by Pulse 99 97 Oximetry - Reevaluation(s) Reevaluation #1: 04/28/21 17:33 Called patient's daughter discharge. She states that the patient has had multiple falls and is weak and that she is no longer able to take care of her at home. Would like patient admitted to the hospital in effort to place in a jail. Procedures - Laceration Laceration #1 Consent Obtained: verbal consent Indication: laceration Site: lower extremity Size (cm): 7 Description: linear (curvilinear) Depth: simple, single layer Anesthetic Used: lidocaine 1% Anesthesia Technique: local infiltration Amount (mls): 6 Pre-repair: wound explored, irrigated extensively Type of Sutures: nylon Size of Sutures: 4-0 Number of Sutures: 10 Technique: simple, interrupted Patient Tolerated Procedure: well Additional Comments: Patient tolerated procedure well. Bacitracin dressing applied. Wound care instructions reviewed with patient. Instructed to have sutures removed in 7-10 days. She verbalizes understanding. Medical Decision Making - Medical Decision Making 80-year-old female with a past medical history of A. fib, COPD, and diabetes, is evaluated for increased weakness and multiple falls. Upon exam, patient is noted to have a 7 cm laceration to the right lower extremity that was repaired without difficulty. Bilateral lower extremities are erythematous with significant edema and thickened skin. Patient states this is not new for her, and is painless. When contacted to pick the patient up for discharge, her family reports that she has had multiple falls and is no longer able to care for herself at home; they are requesting hospital admission. This was discussed with patient who was frustrated, but agreeable to plan of care. Vital signs stable. Patient is afebrile, not tachycardic, nor tachypneic. Chest x-ray shows no acute findings. EKG shows normal sinus rhythm. Laboratory studies were reviewed and are unremarkable. Urinalysis positive for nitrites, moderate leukocytes esterase, and high urine WBCs. Patient was given IV antibiotic. Tolerating oral intake. She will be admitted to the hospital for further evaluation and treatment. I spoke with NARESH Adams who agrees to accept this admission on behalf of [facility]. This patient's care was discussed with my attending Dr. Blair. - Lab Data Result diagrams: 04/28/21 18:45 04/28/21 18:45 Lab Results 04/28/21 04/28/21 04/28/21 Range/Units 18:45 18:45 18:45 WBC 10.2 (3.8-10.6) k/uL RBC 4.20 (3.80-5.40) m/uL Hgb 12.8 (11.4-16.0) gm/dL Hct 41.0 (34.0-46.0) % MCV 97.6 (80.0-100.0) fL MCH 30.5 (25.0-35.0) pg MCHC 31.3 (31.0-37.0) g/dL RDW 13.4 (11.5-15.5) % Plt Count 295 (150-450) k/uL MPV 7.2 Neutrophils % 78 % Lymphocytes % 9 % Monocytes % 9 % Eosinophils % 2 % Basophils % 1 % Neutrophils # 7.9 H (1.3-7.7) k/uL Lymphocytes # 0.9 L (1.0-4.8) k/uL Monocytes # 0.9 (0-1.0) k/uL Eosinophils # 0.2 (0-0.7) k/uL Basophils # 0.1 (0-0.2) k/uL Hypochromasia Slight PT 10.9 (9.0-12.0) sec INR 1.0 (<1.2) APTT 22.7 (22.0-30.0) sec Sodium 138 (137-145) mmol/L Potassium 4.3 (3.5-5.1) mmol/L Chloride 102 (98-107) mmol/L Carbon Dioxide 30 (22-30) mmol/L Anion Gap 6 mmol/L BUN 20 H (7-17) mg/dL Creatinine 0.54 (0.52-1.04) mg/dL Est GFR (CKD-EPI)AfAm >90 (>60 ml/min/1.73 sqM) Est GFR (CKD-EPI)NonAf 89 (>60 ml/min/1.73 sqM) Glucose 76 (74-99) mg/dL Calcium 8.3 L (8.4-10.2) mg/dL Magnesium 1.7 (1.6-2.3) mg/dL Total Bilirubin 0.8 (0.2-1.3) mg/dL AST 30 (14-36) U/L ALT 17 (4-34) U/L Alkaline Phosphatase 80 (38-126) U/L Troponin I (0.000-0.034) ng/mL NT-Pro-B Natriuret Pep pg/mL Total Protein 5.7 L (6.3-8.2) g/dL Albumin 3.2 L (3.5-5.0) g/dL Urine Color Urine Appearance (Clear) Urine pH (5.0-8.0) Ur Specific [place] (1.001-1.035) Urine Protein (Negative) Urine Glucose (UA) (Negative) Urine Ketones (Negative) Urine Blood (Negative) Urine Nitrite (Negative) Urine Bilirubin (Negative) Urine Urobilinogen (<2.0) mg/dL Ur Leukocyte Esterase (Negative) Urine RBC (0-5) /hpf Urine WBC (0-5) /hpf Ur Squamous Epith Cells (0-4) /hpf Amorphous Sediment (None) /hpf Urine Bacteria (None) /hpf Urine Mucus (None) /hpf Coronavirus (PCR) (Not Detectd) 04/28/21 04/28/21 04/28/21 Range/Units 18:45 18:45 22:55 WBC (3.8-10.6) k/uL RBC (3.80-5.40) m/uL Hgb (11.4-16.0) gm/dL Hct (34.0-46.0) % MCV (80.0-100.0) fL MCH (25.0-35.0) pg MCHC (31.0-37.0) g/dL RDW (11.5-15.5) % Plt Count (150-450) k/uL MPV Neutrophils % % Lymphocytes % % Monocytes % % Eosinophils % % Basophils % % Neutrophils # (1.3-7.7) k/uL Lymphocytes # (1.0-4.8) k/uL Monocytes # (0-1.0) k/uL Eosinophils # (0-0.7) k/uL Basophils # (0-0.2) k/uL Hypochromasia PT (9.0-12.0) sec INR (<1.2) APTT (22.0-30.0) sec Sodium (137-145) mmol/L Potassium (3.5-5.1) mmol/L Chloride (98-107) mmol/L Carbon Dioxide (22-30) mmol/L Anion Gap mmol/L BUN (7-17) mg/dL Creatinine (0.52-1.04) mg/dL Est GFR (CKD-EPI)AfAm (>60 ml/min/1.73 sqM) Est GFR (CKD-EPI)NonAf (>60 ml/min/1.73 sqM) Glucose (74-99) mg/dL Calcium (8.4-10.2) mg/dL Magnesium (1.6-2.3) mg/dL Total Bilirubin (0.2-1.3) mg/dL AST (14-36) U/L ALT (4-34) U/L Alkaline Phosphatase (38-126) U/L Troponin I 0.016 (0.000-0.034) ng/mL NT-Pro-B Natriuret Pep 744 pg/mL Total Protein (6.3-8.2) g/dL Albumin (3.5-5.0) g/dL Urine Color Urine Appearance (Clear) Urine pH (5.0-8.0) Ur Specific [place] (1.001-1.035) Urine Protein (Negative) Urine Glucose (UA) (Negative) Urine Ketones (Negative) Urine Blood (Negative) Urine Nitrite (Negative) Urine Bilirubin (Negative) Urine Urobilinogen (<2.0) mg/dL Ur Leukocyte Esterase (Negative) Urine RBC (0-5) /hpf Urine WBC (0-5) /hpf Ur Squamous Epith Cells (0-4) /hpf Amorphous Sediment (None) /hpf Urine Bacteria (None) /hpf Urine Mucus (None) /hpf Coronavirus (PCR) Not Detected (Not Detectd) 04/28/21 Range/Units Unknown WBC (3.8-10.6) k/uL RBC (3.80-5.40) m/uL Hgb (11.4-16.0) gm/dL Hct (34.0-46.0) % MCV (80.0-100.0) fL MCH (25.0-35.0) pg MCHC (31.0-37.0) g/dL RDW (11.5-15.5) % Plt Count (150-450) k/uL MPV Neutrophils % % Lymphocytes % % Monocytes % % Eosinophils % % Basophils % % Neutrophils # (1.3-7.7) k/uL Lymphocytes # (1.0-4.8) k/uL Monocytes # (0-1.0) k/uL Eosinophils # (0-0.7) k/uL Basophils # (0-0.2) k/uL Hypochromasia PT (9.0-12.0) sec INR (<1.2) APTT (22.0-30.0) sec Sodium (137-145) mmol/L Potassium (3.5-5.1) mmol/L Chloride (98-107) mmol/L Carbon Dioxide (22-30) mmol/L Anion Gap mmol/L BUN (7-17) mg/dL Creatinine (0.52-1.04) mg/dL Est GFR (CKD-EPI)AfAm (>60 ml/min/1.73 sqM) Est GFR (CKD-EPI)NonAf (>60 ml/min/1.73 sqM) Glucose (74-99) mg/dL Calcium (8.4-10.2) mg/dL Magnesium (1.6-2.3) mg/dL Total Bilirubin (0.2-1.3) mg/dL AST (14-36) U/L ALT (4-34) U/L Alkaline Phosphatase (38-126) U/L Troponin I (0.000-0.034) ng/mL NT-Pro-B Natriuret Pep pg/mL Total Protein (6.3-8.2) g/dL Albumin (3.5-5.0) g/dL Urine Color Yellow Urine Appearance Cloudy H (Clear) Urine pH 5.5 (5.0-8.0) Ur Specific [place] 1.018 (1.001-1.035) Urine Protein Trace H (Negative) Urine Glucose (UA) Negative (Negative) Urine Ketones Negative (Negative) Urine Blood Trace H (Negative) Urine Nitrite Positive H (Negative) Urine Bilirubin Negative (Negative) Urine Urobilinogen <2.0 (<2.0) mg/dL Ur Leukocyte Esterase Moderate H (Negative) Urine RBC 4 (0-5) /hpf Urine WBC 44 H (0-5) /hpf Ur Squamous Epith Cells 2 (0-4) /hpf Amorphous Sediment Occasional H (None) /hpf Urine Bacteria Many H (None) /hpf Urine Mucus Occasional H (None) /hpf Coronavirus (PCR) (Not Detectd) - EKG Data EKG shows normal: sinus rhythm Rate: normal EKG Comments: EKG was obtained at 195 and shows normal sinus rhythm. Ventricular rate 86 RI interval 150, QRS duration 68, QT/QTC 372/445. Interpretation is normal ECG. - Radiology Data Radiology results: report reviewed, image reviewed Two-view chest x-ray was obtained. Report was reviewed in its entirety. Impression per Dr. Good as elevated right diaphragm as seen on prior without e vidence for acute cardiopulmonary disease/process. X-ray of the right tibia and fibula was obtained. Report was reviewed in entirety. Findings per Dr. Emerson include moderate diffuse subcutaneous edema and soft tissue swelling with lucency consistent with laceration over the anterior aspect of the fibula. No suspicious radiodense foreign body. No acute displaced fracture is seen. No radiodense foreign body identified. Metallic right knee prosthesis is satisfactory in position. Right ankle appears within normal limits. Disposition Clinical Impression: Weakness, Falls frequently, UTI (urinary tract infection) Disposition: ADMITTED IP TO THIS HOSP Condition: Serious Referrals: None,Stated [REFERRING] - 1-2 days Decision Date: 04/28/21 Decision Time: :55
[2021-04-28] MEDS ORDERED: BACITRACIN OINT 1 EACH PACKET TOPICAL ONE (14:56)
[2021-04-28] MEDS ORDERED: DIPH,PERTUS(ACELL)TETVAC-LF 0.5 ML VIAL IM ONE (14:56)
[2021-04-28] MEDS ORDERED: LIDOCAINE 1% INJ 10MG/ML (20 ML MDV) SQ ONE (14:56)
--- NOTE | 2021-04-28 16:04 | XR ---
EXAMINATION TYPE: XR tibia fibula RT DATE OF EXAM: 04/28/2021 CLINICAL HISTORY: Laceration injury with pain. TECHNIQUE: Two views of the right leg are obtained. COMPARISON: None. FINDINGS: Moderate diffuse subcutaneous edema and soft tissue swelling with lucency consistent with l aceration over the anterior aspect of the fibula. No suspicious radiodense foreign body. No acute dis placed fracture is seen. No radiodense foreign body identified. Metallic right knee prosthesis is sat isfactory in position. Right ankle joint appears within normal limits. IMPRESSION: As above
--- NOTE | 2021-04-28 18:27 | XR ---
EXAMINATION TYPE: XR chest 2V DATE OF EXAM: 04/28/2021 5:50 PM COMPARISON:Chest radiographs from 06/12/2020 CLINICAL INDICATION:Female, 80 years old with history of Weakness; TECHNIQUE: Frontal and lateral views of the chest. FINDINGS: Lungs/Pleura: There is no evidence of pleural effusion, focal consolidation, or pneumothorax. Elevat ed right diaphragm as seen on prior. Pulmonary vascularity: Unremarkable. Heart/mediastinum: Cardiomediastinal silhouette is unremarkable. Atherosclerotic calcifications are seen in the aorta. Musculoskeletal: No acute osseous pathology. IMPRESSION: Elevated right diaphragm as seen on prior without evidence for acute cardiopulmonary disease/process.
[2021-04-28 18:55] LABS: Basophils # (A) 0.1 k/uL (0-0.2); Basophils % (A) 1 %; Eosinophils # (A) 0.2 k/uL (0-0.7); Eosinophils % (A) 2 %; HGB 12.8 gm/dL (11.4-16.0); Hypochromasia Slight; Lymphocytes # (A) 0.9 k/uL (1.0-4.8); Lymphocytes % (A) 9 %; MCH 30.5 pg (25.0-35.0); MCHC 31.3 g/dL (31.0-37.0); MCV 97.6 fL (80.0-100.0); Mean Platelet Volume 7.2; Monocytes # (A) 0.9 k/uL (0-1.0); Monocytes % (A) 9 %; Neutrophils # (A) 7.9 k/uL (1.3-7.7); Neutrophils % (A) 78 %; Platelet Count 295 k/uL (150-450); RDW 13.4 % (11.5-15.5); WBC 10.2 k/uL (3.8-10.6)
[2021-04-28 19:05] LABS: ALT 17 U/L (4-34); AST 30 U/L (14-36); African American GFR (CKD) >90 (>60 ml/min/1.73 sqM); Albumin 3.2 g/dL (3.5-5.0); Alkaline Phosphatase 80 U/L (38-126); Anion Gap 6 mmol/L; Blood Urea Nitrogen 20 mg/dL (7-17); Calcium 8.3 mg/dL (8.4-10.2); Carbon Dioxide 30 mmol/L (22-30); Chloride 102 mmol/L (98-107); Glucose 76 mg/dL (74-99); Magnesium 1.7 mg/dL (1.6-2.3); Non-African American GFR(CKD) 89 (>60 ml/min/1.73 sqM); Potassium 4.3 mmol/L (3.5-5.1); Sodium 138 mmol/L (137-145); Total Bilirubin 0.8 mg/dL (0.2-1.3); Total Protein 5.7 g/dL (6.3-8.2)
[2021-04-28 19:27] LABS: Partial Thromboplastin Time 22.7 sec (22.0-30.0); Prothrombin Time 10.9 sec (9.0-12.0)
[2021-04-28 21:06] LABS: Amorphous Sediment,Urine Occasional /hpf; Appearance,Urine Cloudy (Clear); Bacteria,Urine Many /hpf; Bilirubin,Urine Negative (Negative); Blood,Urine Trace (Negative); Color,Urine Yellow; Glucose,Urine (UA) Negative (Negative); Ketones,Urine Negative (Negative); Leukocyte Esterase,Urine Moderate (Negative); Mucus,Urine Occasional /hpf; Nitrite,Urine Positive (Negative); PH, Urine 5.5 (5.0-8.0); Protein,Urine Trace (Negative); RBC,Urine 4 /hpf (0-5); Specific Gravity,Urine 1.018 (1.001-1.035); Squamous Epithelial Cell,Urine 2 /hpf (0-4); Urobilinogen,Urine <2.0 mg/dL (<2.0); WBC,Urine 44 /hpf (0-5)
[2021-04-28] MEDS ORDERED: ONDANSETRON 4 MG/2 ML VIAL IVP PRN (21:48)
[2021-04-29 05:16] LABS: Basophils # (A) 0.1 k/uL (0-0.2); Basophils % (A) 1 %; Eosinophils # (A) 0.2 k/uL (0-0.7); Eosinophils % (A) 2 %; HCT 41.7 % (34.0-46.0); HGB 12.5 gm/dL (11.4-16.0); Hypochromasia Marked; Lymphocytes % (A) 11 %; MCH 30.4 pg (25.0-35.0); MCHC 29.9 g/dL (31.0-37.0); MCV 101.7 fL (80.0-100.0); Macrocytosis Slight; Mean Platelet Volume 7.4; Monocytes # (A) 1.2 k/uL (0-1.0); Monocytes % (A) 12 %; Neutrophils # (A) 7.1 k/uL (1.3-7.7); Neutrophils % (A) 72 %; Platelet Count 266 k/uL (150-450); RDW 13.4 % (11.5-15.5); WBC 9.8 k/uL (3.8-10.6)
[2021-04-29 05:18] LABS: African American GFR (CKD) >90 (>60 ml/min/1.73 sqM); Anion Gap 6 mmol/L; Blood Urea Nitrogen 20 mg/dL (7-17); Calcium 8.2 mg/dL (8.4-10.2); Carbon Dioxide 31 mmol/L (22-30); Chloride 102 mmol/L (98-107); Glucose 81 mg/dL (74-99); Non-African American GFR(CKD) 84 (>60 ml/min/1.73 sqM); Potassium 4.3 mmol/L (3.5-5.1); Sodium 139 mmol/L (137-145)
[2021-04-29] MEDS: METOPROLOL TARTRATE 25 MG TAB PO SCH ×2 (09:05→20:26)
[2021-04-29] MEDS: APIXABAN 5 MG TAB PO SCH ×2 (09:05→20:26)
[2021-04-29] MEDS: LOSARTAN 25 MG TAB PO SCH (09:05)
[2021-04-29] MEDS: LEVOTHYROXINE 100 MCG TAB PO SCH (09:05)
--- NOTE | 2021-04-29 13:18 | P.HPIM ---
History of Present Illness this is a pleasanbt 80 yo F with past medical history of Atrial Fibrillation, Atrial Flutter on eliquis, Asthma, Heart Failure, COPD, Diabetes Mellitus, Hyperlipidemia, Hypertension, Osteoarthritis , Sleep Apnea/CPAP/BIPAP, uses wa lker. Complaining of from a laceration into the right leg after she fell from her bed. Patient states that she was slipped from her bed yesterday and hurt her right leg there is a wound on the right lateral leg about 2 inches in length with sutures in place and person. Patient does not think she lost consciousness. No headache or weakness or numbness. No chest pain. Patient also has bilateral leg swelling and erythema, patient states that these are going on for a while but she could not remember for how long. Patient does not complain from dysuria but she has some urgency. No increased f requency she states Patient complaining of from shortness of breath and dry cough. She could not te ll for how long. SHE does not use oxygen at home. She cannot tell if she has history of COPD or asthma. Although it was documented in medical history. She denies abdominal pain or vomiting or diarrhea. Vital signs stable and patient is afebrile. Labs including CBC, BMP are unremarkable. Medeiros v is not detected. EKG showed normal sinus rhythm at [address]-T changes Chest x-ray: No acute process. Right tibia and fibula x-ray.: Nondisplaced acute fracture. Moderate to diffus e subcutaneous edema and soft tissue swelling with lucency consistent with laceration over the anterior aspect of the fibula Review of Systems Review of systems CONSTITUTIONAL: No fever, no malaise, no fatigue. HEENT: No recent visual problems or hearing problems. Denied any sore throat. CARDIOVASCULAR: No orthopnea, PND, no palpitations, no syncope. PULMONARY: No chest wall tenderness, no hemoptysis. GASTROINTESTINAL: No diarrhea, no nausea, no vomiting, no abdominal pain. Normoactive bowel sounds. NEUROLOGICAL: No headaches, no weakness, no numbness. HEMATOLOGICAL: Denies any bleeding or petechiae. GENITOURINARY: Denies any burning micturition, frequency, or urgency. MUSCULOSKELETAL/RHEUMATOLOGICAL: Denies any joint pain, swelling, or any muscle pain. ENDOCRINE: Denies any polyuria or polydipsia. Past Medical History Past Medical History: Atrial Fibrillation, Atrial Flutter, Asthma, Blood Disorder, Heart Failure, COPD, Diabetes Mellitus, Hyperlipidemia, Hypertension, Osteoarthritis (OA), Pneumonia, Skin Disorder, Sleep Apnea/CPAP/BIPAP Additional Past Medical History / Comment(s): heart valve problem-not sure of name, sleep apnea-no cpap used, anemia, degenerative arthritis, diet controlled dm-patient states does not have dm, urinary incontinence, uses walker. History of Any Multi-Drug Resistant Organisms: MRSA Date of last positivie culture/infection: 06/27/18 MDRO Source:: Right Leg Past Surgical History: Appendectomy, Bariatric Surgery, Hysterectomy, Joint Replacement, Orthopedic Surgery, Tonsillectomy Additional Past Surgical History / Comment(s): Picc line insertion/later removed, lap band, right knee replacement x 2 & left knee replaced with revision, L ganglion wirst surgery, left ankle ORIF, right trigger thumb surgery, bilateral cataracts. Past Anesthesia/Blood Transfusion Reactions: Previous Problems w/ Anesthesia Additional Past Anesthesia/Blood Transfusion Reaction / Comment(s): difficulty waking up Smoking Status: Unknown if ever smoked - Past Family History Daughter(s) Family Medical History: Deep Vein Thrombosis (DVT), Pulmonary Embolus Father Family Medical History: Cancer Mother Additional Family Medical History / Comment(s): Mother had hypotension. Medications and Allergies Home Medications Medication Instructions Recorded Confirmed Type Levothyroxine Sodium [Synthroid] 100 mcg PO DAILY 10/05/19 04/28/21 History Apixaban [Eliquis] 5 mg PO BID 02/25/20 04/28/21 History Metoprolol Tartrate 25 mg PO BID 05/20/20 04/28/21 History Losartan [Cozaar] 25 mg PO DAILY 04/28/21 04/28/21 History Allergies Allergy/AdvReac Type Severity Reaction Status Date / Time thallium-201 Allergy Intermediate Rash/Hives Verified 04/28/21 16:03 Sulfa (Sulfonamide AdvReac Severe low Verified 04/28/21 16:03 Antibiotics) hemoglobin aspirin AdvReac Mild blood in Verified 04/28/21 16:03 stool vancomycin AdvReac Rash/Hives Verified 04/28/21 16:03 steri strips AdvReac Mild blisters Uncoded 04/28/21 16:03 skin Physical Exam Vitals: Vital Signs Temp Pulse Pulse Resp BP BP Pulse Ox 04/29/21 07:00 97.5 F L 82 16 155/72 99 04/29/21 00:19 98.2 F 77 17 107/65 94 L 04/28/21 21:00 88 16 137/68 97 04/28/21 14:06 97.5 F L 82 18 146/78 99 Intake and Output 04/28/21 04/29/21 04/29/21 22:59 06:59 14:59 Intake Total 120 Balance 120 Intake: Oral 120 Other: Voiding Method Incontinent External Catheter # Voids 0 0 # Bowel Movements 0 Weight 104.326 kg -GENERAL: The patient is alert and oriented x3, not in any acute distress. Morbidly obese HEENT: Pupils are round and equally reacting to light. EOMI. No scleral icterus. No conjunctival pallor. Normocephalic, atraumatic. No pharyngeal erythema. No thyromegaly. CARDIOVASCULAR: S1 and S2 present. No murmurs, rubs, or gallops. -PULMONARY: Chest is clear to auscultation, no wheezing or crackles. Tachypnea with some decrease in air entry ABDOMEN: Soft, nontender, nondistended, normoactive bowel sounds. No palpable organomegaly. MUSCULOSKELETAL: No joint swelling or deformity. -EXTREMITIES: No cyanosis, clubbing, or pedal edema. Bilateral distal leg erythema and redness, symmetrical, with laceration wound on the right lateral leg with suture in a Place, wound is closed NEUROLOGICAL: Gross neurological examination did not reveal any focal deficits. SKIN: No rashes. no petechiae. Results CBC & Chem 7: 04/29/21 04:26 04/29/21 04:26 Labs: Abnormal Lab Results - Last 24 Hours (Table) 04/28/21 04/28/21 04/28/21 Range/Units 18:45 18:45 Unknown MCV (80.0-100.0) fL MCHC (31.0-37.0) g/dL Neutrophils # 7.9 H (1.3-7.7) k/uL Lymphocytes # 0.9 L (1.0-4.8) k/uL Monocytes # (0-1.0) k/uL Carbon Dioxide (22-30) mmol/L BUN 20 H (7-17) mg/dL Calcium 8.3 L (8.4-10.2) mg/dL Total Protein 5.7 L (6.3-8.2) g/dL Albumin 3.2 L (3.5-5.0) g/dL Urine Appearance Cloudy H (Clear) Urine Protein Trace H (Negative) Urine Blood Trace H (Negative) Urine Nitrite Positive H (Negative) Ur Leukocyte Esterase Moderate H (Negative) Urine WBC 44 H (0-5) /hpf Amorphous Sediment Occasional H (None) /hpf Urine Bacteria Many H (None) /hpf Urine Mucus Occasional H (None) /hpf 04/29/21 04/29/21 Range/Units 04:26 04:26 MCV 101.7 H (80.0-100.0) fL MCHC 29.9 L (31.0-37.0) g/dL Neutrophils # (1.3-7.7) k/uL Lymphocytes # (1.0-4.8) k/uL Monocytes # 1.2 H (0-1.0) k/uL Carbon Dioxide 31 H (22-30) mmol/L BUN 20 H (7-17) mg/dL Calcium 8.2 L (8.4-10.2) mg/dL Total Protein (6.3-8.2) g/dL Albumin (3.5-5.0) g/dL Urine Appearance (Clear) Urine Protein (Negative) Urine Blood (Negative) Urine Nitrite (Negative) Ur Leukocyte Esterase (Negative) Urine WBC (0-5) /hpf Amorphous Sediment (None) /hpf Urine Bacteria (None) /hpf Urine Mucus (None) /hpf Microbiology - Last 24 Hours (Table) 04/28/21 Unknown Urine Culture - Preliminary Urine,Voided Thrombosis Risk Factor Assmnt - Choose All That Apply Any of the Below Risk Factors Present?: Yes Each Factor Represents 1 point: Minor surgery planned, Swollen legs (current) Other Risk Factors: Yes Each Risk Factor Represents 3 Points: Age 75 years or older Other congenital or acquired thrombophilia - If yes, enter type in comment: No Thrombosis Risk Factor Assessment Total Risk Factor Score: 5 Thrombosis Risk Factor Assessment Level: High Risk Assessment and Plan Assessment: Acute urinary tract infection Full from her bed without losing consciousness Right leg wound secondary to above. Status post sutures Shortness of breath, possible COPD acute exacerbation. Bilateral leg cellulitis versus dermatitis Hypertension Hyperlipidemia Diabetes mellitus chronicl atrial fibrillation on Eliquis History of heart failure History of posterior arthritis Sleep apnea on CPAP/BiPAP Plan: This is a pleasant 80 years old female who presents with acute urinary tract infection, fall and weakness. Ceftriaxone Follow-up urine culture Physical therapy evaluation Start inhaled steroids and bronchodilators Check Doppler of the legs Labs and medication were reviewed.. Continue same treatment. Continue with symptomatic treatment. Resume home medication. Monitor lytes and vitals. DVT and GI prophylaxis. Further recommendationsas per clinical course of the patient DVT prophylaxis: Eliquis GI Prophylaxis: Pepcid PT/OT: Pending Prognosis is guarded
--- NOTE | 2021-04-29 15:44 | US ---
EXAMINATION TYPE: US venous doppler duplex LE BI DATE OF EXAM: 04/29/2021 3:26 PM COMPARISON: US CLINICAL HISTORY: leg swelling. Bilateral LE cellulitis with leg ulcers SIDE PERFORMED: Bilateral TECHNIQUE: The lower extremity deep venous system is examined utilizing real time linear array sonog jose with graded compression, doppler sonography and color-flow sonography. VESSELS IMAGED: Common Femoral Vein Deep Femoral Vein Greater Saphenous Vein * Femoral Vein Popliteal Vein Small Saphenous Vein * Proximal Calf Veins (* superficial vessels) Limited US exam as had to scan large body habitus patient in bedside reclining chair. Right Leg: Negative for DVT as tech was able to visualize veins. Left Leg: Negative for DVT as tech was able to visualize veins. IMPRESSION: Limited exam shows no evidence of deep vein thrombosis in both legs.
[2021-04-29] MEDS: FAMOTIDINE 20 MG/2 ML VIAL IV SCH (20:27)
[2021-04-29] MEDS: BUDESONIDE 0.5 MG/2 ML NEBU INHALATION SCH (21:10)
[2021-04-29] MEDS: IPRATROPIUM-ALBUTEROL 3 ML NEB INHALATION PRN (21:10)
[2021-04-29] MEDS: FORMOTEROL FUMARATE 20 MCG/2 ML NEBU INHALATION SCH (21:11)
[2021-04-30] MEDS: LEVOTHYROXINE 100 MCG TAB PO SCH (05:56)
[2021-04-30] MEDS: BUDESONIDE 0.5 MG/2 ML NEBU INHALATION SCH (07:36)
[2021-04-30] MEDS: IPRATROPIUM-ALBUTEROL 3 ML NEB INHALATION PRN ×2 (07:36→16:02)
[2021-04-30] MEDS: FORMOTEROL FUMARATE 20 MCG/2 ML NEBU INHALATION SCH (07:36)
[2021-04-30] MEDS: FAMOTIDINE 20 MG/2 ML VIAL IV SCH ×2 (08:25→21:57)
[2021-04-30] MEDS: APIXABAN 5 MG TAB PO SCH ×2 (08:25→21:31)
[2021-04-30] MEDS: LOSARTAN 25 MG TAB PO SCH (08:25)
[2021-04-30] MEDS: METOPROLOL TARTRATE 25 MG TAB PO SCH ×2 (08:25→21:31)
[2021-04-30] MEDS: ACETAMINOPHEN TAB 325 MG TAB PO PRN (08:26)
[2021-04-30 12:25] LABS: Basophils # (A) 0.08 X 10*3/uL (0.00-0.10); Basophils % (A) 0.8 %; Eosinophils # (A) 0.07 X 10*3/uL (0.04-0.35); Eosinophils % (A) 0.7 %; HCT 37.3 % (37.2-46.3); Lymphocytes # (A) 0.89 X 10*3/uL (0.90-5.00); Lymphocytes % (A) 9.1 %; MCH 30.1 pg (27.0-32.0); MCHC 29.5 g/dL (32.0-37.0); MCV 101.9 fL (80.0-97.0); Mean Platelet Volume 9.9 fL (9.5-12.2); Monocytes # (A) 1.22 X 10*3/uL (0.20-1.00); Monocytes % (A) 12.5 %; Neutrophils # (A) 7.44 X 10*3/uL (1.80-7.70); Neutrophils % (A) 76.5 %; Platelet Count 235 X 10*3/uL (140-440); RBC 3.66 X 10*6/uL (4.10-5.20); RDW 13.6 % (11.5-14.5); WBC 9.74 X 10*3/uL (4.50-10.00)
[2021-04-30 12:59] LABS: African American GFR (CKD) 87.1 (60.0-200.0); Anion Gap 11.4 mmol/L (10.00-18.00); BUN/Creat Ratio 21.82 Ratio (12.00-20.00); Blood Urea Nitrogen 16.3 mg/dL (9.0-27.0); Calcium 8.1 mg/dL (8.7-10.3); Carbon Dioxide 28.3 mmol/L (20.0-27.5); Non-African American GFR(CKD) 75.1 (60.0-200.0); Potassium 4.2 mmol/L (3.5-5.5)
--- NOTE | 2021-04-30 17:16 | P.CNPUL ---
History of Present Illness Consult date: 04/30/21 Requesting physician: Mani Griffin Reason for consult: dyspnea, abnormal CXR/CT Chief complaint: Shortness of breath. History of present illness: Pulmonary consult dated 04/30/2021. 80-year-old female seen in the emergency department, on April 28. She presented because of an injury to her right leg. She apparently fell getting out of bed, and was concerned that she may have fractured her leg. The patient typically ambulates using a walker. She apparently fell twice on the day of admission. There was no loss of consciousness. She denied any head, neck, or back pain. According to the daughter, the patient has been falling quite frequently over the last couple of days. Also, apparently her overall health has been declining significantly, and she has not been able to care for herself at home. The patient is apparently incontinent of urine and stool. She apparently spends hours in soiled diapers. Apparently the family needs help with long term placement. Apparently, the patient developed some shortness of breath chest congestion, and hence we were consulted. Currently, she is in no distress, and has 3 L nasal cannula, with saturations of 100%. Her respiratory rate 18-20 breaths per minute. White count 9.74, hemoglobin 11, hematocrit 37.3, and platelet count 255,000. Sodium 143, potassium 4.2, chlorides 103, CO2 28, anion gap 11, BUN 16.3, and creatinine 0.7. The urine does appear to be positive for a urinary tract infection. The urine is demonstrating gram-negative bacilli. It has yet to be identified. X-ray of the right leg, was negative for fracture. There was some subcutaneous edema and some soft tissue swelling noted. Chest x-ray shows a chronically elevated right hemidiaphragm without acute cardiopulmonary disease. Dopplers of bilateral lower extremities were negative for DVT. Review of Systems REVIEW OF SYSTEMS: CONSTITUTIONAL: Weakness/fatigue. NEUROLOGIC: Frequent falls. HEENT: [ Negative.] CARDIAC: [Negative.] PULMONARY: Mild shortness of breath. GI: Fecal incontinence. : Urinary incontinence. RHEUMATOLOGIC: [ Negative.] IMMUNOLOGIC: [ Negative.] ENDOCRINE: [Negative. ] DERMATOLOGIC: [Negative.] Past Medical History Past Medical History: Atrial Fibrillation, Atrial Flutter, Asthma, Blood Disorder, Heart Failure, COPD, Diabetes Mellitus, Hyperlipidemia, Hypertension, Osteoarthritis (OA), Pneumonia, Skin Disorder, Sleep Apnea/CPAP/BIPAP Additional Past Medical History / Comment(s): heart valve problem-not sure of n ren, sleep apnea-no cpap used, anemia, degenerative arthritis, diet controlled dm-patient states does not have dm, urinary incontinence, uses walker. History of Any Multi-Drug Resistant Organisms: MRSA Date of last positivie culture/infection: 06/27/18 MDRO Source:: Right Leg Past Surgical History: Appendectomy, Bariatric Surgery, Hysterectomy, Joint Replacement, Orthopedic Surgery, Tonsillectomy Additional Past Surgical History / Comment(s): Picc line insertion/later rem zainab, lap band, right knee replacement x 2 & left knee replaced with revision, L ganglion wirst surgery, left ankle ORIF, right trigger thumb surgery, bilateral cataracts. Past Anesthesia/Blood Transfusion Reactions: Previous Problems w/ Anesthesia Additional Past Anesthesia/Blood Transfusion Reaction / Comment(s): difficulty waking up Smoking Status: Unknown if ever smoked - Past Family History Daughter(s) Family Medical History: Deep Vein Thrombosis (DVT), Pulmonary Embolus Father Family Medical History: Cancer Mother Additional Family Medical History / Comment(s): Mother had hypotension. Medications and Allergies Home Medications Medication Instructions Recorded Confirmed Type Levothyroxine Sodium [Synthroid] 100 mcg PO DAILY 10/05/19 04/28/21 History Apixaban [Eliquis] 5 mg PO BID 02/25/20 04/28/21 History Metoprolol Tartrate 25 mg PO BID 05/20/20 04/28/21 History Losartan [Cozaar] 25 mg PO DAILY 04/28/21 04/28/21 History Allergies Allergy/AdvReac Type Severity Reaction Status Date / Time thallium-201 Allergy Intermediate Rash/Hives Verified 04/28/21 16:03 Sulfa (Sulfonamide AdvReac Severe low Verified 04/28/21 16:03 Antibiotics) hemoglobin aspirin AdvReac Mild blood in Verified 04/28/21 16:03 stool vancomycin AdvReac Rash/Hives Verified 04/28/21 16:03 steri strips AdvReac Mild blisters Uncoded 04/28/21 16:03 skin Physical Exam Osteopathic Statement: *. No significant issues noted on an osteopathic structural exam other than those noted in the History and Physical/Consult. Vitals: Vital Signs Temp Pulse Pulse Resp BP Pulse Ox 04/30/21 16:11 76 04/30/21 16:03 74 04/30/21 14:42 97.5 F L 57 L 20 115/68 100 04/30/21 07:54 74 04/30/21 07:48 72 04/30/21 07:47 72 04/30/21 07:37 72 04/30/21 07:00 98.6 F 67 22 113/64 95 04/30/21 01:18 98.3 F 75 19 115/69 93 L 04/29/21 21:30 74 04/29/21 21:22 80 04/29/21 21:21 80 04/29/21 21:11 76 04/29/21 20:01 98.2 F 78 17 142/72 99 Intake and Output 04/30/21 04/30/21 04/30/21 06:59 14:59 22:59 Other: Voiding Method Diaper # Voids 2 1 # Bowel Movements 1 No acute distress, oriented 3. Patient is morbidly obese. HEENT examination is grossly unremarkable. Currently on 3 L nasal cannula. Neck supple. Full range of motion. No adenopathy thyromegaly or neck vein distention. Cardiovascular examination reveals regular rhythm rate. S1-S2 normal. No S3 or S4. No discernible murmur noted. Heart rate 76 bpm. Lungs reveal scattered rhonchi. No wheezes or crackles. Breath sounds equal. Abdomen soft bowel sounds are heard. No masses or tenderness. Extremities reveal distal lower extremity erythema and redness. There is a laceration noted on the right lateral leg with sutures. No cyanosis or clubbing. Skin is without rash or lesion. Neurologic examination is brief but nonfocal. Results - Laboratory Findings CBC and BMP: 04/30/21 06:31 04/30/21 06:31 PT/INR, D-dimer PT 10.9 sec (9.0-12.0) 04/28/21 18:45 INR 1.0 (<1.2) 04/28/21 18:45 Abnormal lab findings: Abnormal Labs 04/28/21 04/28/21 04/28/21 18:45 18:45 Unknown RBC Hgb MCV MCHC Neutrophils # 7.9 H Lymphocytes # 0.9 L Monocytes # Carbon Dioxide BUN 20 H BUN/Creatinine Ratio Glucose Calcium 8.3 L Total Protein 5.7 L Albumin 3.2 L Urine Appearance Cloudy H Urine Protein Trace H Urine Blood Trace H Urine Nitrite Positive H Ur Leukocyte Esterase Moderate H Urine WBC 44 H Amorphous Sediment Occasional H Urine Bacteria Many H Urine Mucus Occasional H 04/29/21 04/29/21 04/30/21 04:26 04:26 06:31 RBC 3.66 L Hgb 11.0 L MCV 101.7 H 101.9 H MCHC 29.9 L 29.5 L Neutrophils # Lymphocytes # 0.89 L Monocytes # 1.2 H 1.22 H Carbon Dioxide 31 H BUN 20 H BUN/Creatinine Ratio Glucose Calcium 8.2 L Total Protein Albumin Urine Appearance Urine Protein Urine Blood Urine Nitrite Ur Leukocyte Esterase Urine WBC Amorphous Sediment Urine Bacteria Urine Mucus 04/30/21 06:31 RBC Hgb MCV MCHC Neutrophils # Lymphocytes # Monocytes # Carbon Dioxide 28.3 H BUN BUN/Creatinine Ratio 21.82 H Glucose 113 H Calcium 8.1 L Total Protein Albumin Urine Appearance Urine Protein Urine Blood Urine Nitrite Ur Leukocyte Esterase Urine WBC Amorphous Sediment Urine Bacteria Urine Mucus - Diagnostic Findings Chest x-ray: image reviewed U/S of Legs: image reviewed Assessment and Plan Assessment: Status post frequent falls, and injury to the right leg, without fracture. Chronic fecal and urinary incontinence. Acute urinary tract infection, secondary to gram-negative bacilli. Shortness of breath, chronic, likely related to chronically elevated right hemidiaphragm. History of atrial fibrillation/flutter. History of CHF. History of diabetes mellitus. History of hyperlipidemia. History of hypertension. History of sleep apnea syndrome. Multiple other medical problems and comorbidities. Plan: Plan dated 04/30/2021. The patient should have a swallow evaluation. There may be some component of chronic aspiration. The patient's chest x-ray is clear. The right diaphragm is elevated but chronically so. The patient is being treated for a urinary tract infection. We will continue to follow make recommendations were appropriate. Overall prognosis remains guarded. The patient will likely need placement in a long term. Time with Patient: Greater than 30
[2021-04-30] MEDS ORDERED: IPRATROPIUM-ALBUTEROL 3 ML NEB ONE (19:17)
--- NOTE | 2021-04-30 21:35 | P.PN ---
Subjective this is a pleasanbt 80 yo F with past medical history of Atrial Fibrillation, Atrial Flutter on eliquis, Asthma, Heart Failure, COPD, Diabetes Mellitus, Hyperlipidemia, Hypertension, Osteoarthritis , Sleep Apnea/CPAP/BIPAP, uses walker. Complaining of from a laceration into the right leg after she fell from her bed. Patient states that she was slipped from her bed yesterday and hurt her right leg there is a wound on the right lateral leg about 2 inches in length with sutures in place and person. Patient does not think she lost consciousness. No headache or weakness or numbness. No chest pain. Patient also has bilateral leg swelling and erythema, patient states that these are going on for a while but she could not remember for how long. Patient does not complain from dysuria but she has some urgency. No increased frequency she states Patient complaining of from shortness of breath and dry cough. She could not tell for how long. SHE does not use oxygen at home. She cannot tell if she has history of COPD or asthma. Although it was documented in medical history. She denies abdominal pain or vomiting or diarrhea. Vital signs stable and patient is afebrile. Labs including CBC, BMP are unremarkable. Medeiros v is not detected. EKG showed normal sinus rhythm at [address]-T changes Chest x-ray: No acute process. Right tibia and fibula x-ray.: Nondisplaced acute fracture. Moderate to diffuse subcutaneous edema and soft tissue swelling with lucency consistent with laceration over the anterior aspect of the fibula 04/30/2021 Patient feels better overall. Her leg redness significantly better compared to yesterday indicating that it is most likely cellulitis rather than dermatitis. Also urine culture growing gram-negative bacilli and patient kept on ceftriaxone which looks like help in her. However overall she is deconditioned and she has memory problems and looks like she has chronic dyspnea and urinary incontinence. Also she might need help with placement, therefore social science manager was consulted. Check swallow evaluation and follow-up urine culture results Objective - Vital Signs Vital signs: Vital Signs Temp 98.6 F 04/30/21 07:00 Pulse 74 04/30/21 07:54 Resp 22 04/30/21 07:00 BP 113/64 04/30/21 07:00 Pulse Ox 95 04/30/21 07:00 Intake & Output 04/29/21 04/30/21 04/30/21 18:59 06:59 18:59 Intake Total 240 Output Total 500 Balance -260 Intake: Oral 240 Output: Urine 500 Other: Voiding Method Bedside Commode Diaper Diaper # Voids 0 2 1 # Bowel Movements 0 1 - Exam -GENERAL: The patient is alert and oriented x3, not in any acute distress. Morbidly obese HEENT: Pupils are round and equally reacting to light. EOMI. No scleral icterus. No conjunctival pallor. Normocephalic, atraumatic. No pharyngeal erythema. No thyromegaly. CARDIOVASCULAR: S1 and S2 present. No murmurs, rubs, or gallops. -PULMONARY: Chest is clear to auscultation, no wheezing or crackles. Tachypnea ABDOMEN: Soft, nontender, nondistended, normoactive bowel sounds. No palpable organomegaly. MUSCULOSKELETAL: No joint swelling or deformity. -EXTREMITIES: No cyanosis, clubbing, or pedal edema. Bilateral distal leg erythema and redness, symmetrical, with laceration wound on the right lateral leg with suture in a Place, wound is closed NEUROLOGICAL: Gross neurological examination did not reveal any focal deficits. SKIN: No rashes. no petechiae. - Labs CBC & Chem 7: 04/30/21 06:31 04/30/21 06:31 Assessment and Plan Assessment: Acute urinary tract infection Full from her bed without losing consciousness Right leg wound secondary to above. Status post sutures Shortness of breath, possible COPD acute exacerbation. Bilateral leg cellulitis versus dermatitis Hypertension Hyperlipidemia Diabetes mellitus chronicl atrial fibrillation on Eliquis History of heart failure History of posterior arthritis Sleep apnea on CPAP/BiPAP Plan: This is a pleasant 80 years old female who presents with acute urinary tract infection, fall and weakness. Ceftriaxone Follow-up urine culture Physical therapy evaluation Start inhaled steroids and bronchodilators Check Doppler of the legs Labs and medication were reviewed.. Continue same treatment. Continue with symptomatic treatment. Resume home medication. Monitor lytes and vitals. DVT and GI prophylaxis. Further recommendationsas per clinical course of the patient DVT prophylaxis: Eliquis GI Prophylaxis: Pepcid PT/OT: Pending Prognosis is guarded
[2021-05-01] MEDS: LEVOTHYROXINE 100 MCG TAB PO SCH (05:22)
[2021-05-01] MEDS: ACETAMINOPHEN TAB 325 MG TAB PO PRN (09:30)
[2021-05-01] MEDS: FAMOTIDINE 20 MG TAB PO SCH (09:30)
[2021-05-01] MEDS: METOPROLOL TARTRATE 25 MG TAB PO SCH ×2 (09:30→21:38)
[2021-05-01] MEDS: APIXABAN 5 MG TAB PO SCH ×2 (09:30→21:38)
[2021-05-01] MEDS: LOSARTAN 25 MG TAB PO SCH (09:30)
[2021-05-01] MEDS: cefTRIAXone 1,000 MG VIAL (IM USE) IM SCH (14:49)
--- NOTE | 2021-05-01 15:56 | P.PN ---
Subjective this is a pleasanbt 80 yo F with past medical history of Atrial Fibrillation, Atrial Flutter on eliquis, Asthma, Heart Failure, COPD, Diabetes Mellitus, Hyperlipidemia, Hypertension, Osteoarthritis , Sleep Apnea/CPAP/BIPAP, uses walker. Complaining of from a laceration into the right leg after she fell from her bed. Patient states that she was slipped from her bed yesterday and hurt her right leg there is a wound on the right lateral leg about 2 inches in length with sutures in place and person. Patient does not think she lost consciousness. No headache or weakness or numbness. No chest pain. Patient also has bilateral leg swelling and erythema, patient states that these are going on for a while but she could not remember for how long. Patient does not complain from dysuria but she has some urgency. No increased frequency she states Patient complaining of from shortness of breath and dry cough. She could not tell for how long. SHE does not use oxygen at home. She cannot tell if she has history of COPD or asthma. Although it was documented in medical history. She denies abdominal pain or vomiting or diarrhea. Vital signs stable and patient is afebrile. Labs including CBC, BMP are unremarkable. Medeiros v is not detected. EKG showed normal sinus rhythm at [address]-T changes Chest x-ray: No acute process. Right tibia and fibula x-ray.: Nondisplaced acute fracture. Moderate to diffuse subcutaneous edema and soft tissue swelling with lucency consistent with laceration over the anterior aspect of the fibula 04/30/2021 Patient feels better overall. Her leg redness significantly better compared to yesterday indicating that it is most likely cellulitis rather than dermatitis. Also urine culture growing gram-negative bacilli and patient kept on ceftriaxone which looks like help in her. However overall she is deconditioned and she has memory problems and looks like she has chronic dyspnea and urinary incontinence. Also she might need help with placement, therefore web content & social media manager was consulted. Check swallow evaluation and follow-up urine culture results 05/01/2021 Patient clinically looks his stable, her breathing is at baseline. She is intact For left related to her chronic right diaphragm paralysis and she's been evaluated by pulmonary service yesterday. Her urine culture came back sensitive E. coli and she continued on Rocephin. Patient can finish her course of antibiotics with Ceftin upon discharge is medically cleared for discharge pending placement. Discussed with web content & social media manager lucia Objective - Vital Signs Vital signs: Vital Signs Temp 97.8 F 05/01/21 07:00 Pulse 61 05/01/21 07:00 Resp 20 05/01/21 07:00 BP 156/78 05/01/21 07:00 Pulse Ox 98 05/01/21 07:00 Intake & Output 04/30/21 05/01/21 05/01/21 18:59 06:59 18:59 Intake Total 100 120 Balance 100 120 Intake: Oral 100 120 Other: Voiding Method Diaper Diaper Diaper Incontinent Incontinent # Voids 1 2 0 # Bowel Movements 1 1 - Exam -GENERAL: The patient is alert and oriented x3, not in any acute distress. Morbidly obese HEENT: Pupils are round and equally reacting to light. EOMI. No scleral icterus. No conjunctival pallor. Normocephalic, atraumatic. No pharyngeal erythema. No thyromegaly. CARDIOVASCULAR: S1 and S2 present. No murmurs, rubs, or gallops. -PULMONARY: Chest is clear to auscultation, no wheezing or crackles. Tachypnea ABDOMEN: Soft, nontender, nondistended, normoactive bowel sounds. No palpable organomegaly. MUSCULOSKELETAL: No joint swelling or deformity. -EXTREMITIES: No cyanosis, clubbing, or pedal edema. Bilateral distal leg erythema and redness, symmetrical, with laceration wound on the right lateral leg with suture in a Place, wound is closed NEUROLOGICAL: Gross neurological examination did not reveal any focal deficits. SKIN: No rashes. no petechiae. - Labs CBC & Chem 7: 04/30/21 06:31 04/30/21 06:31 Labs: Microbiology - Last 24 Hours (Table) 04/28/21 Unknown Urine Culture - Final Urine,Voided Escherichia coli Assessment and Plan Assessment: Acute urinary tract infection Full from her bed without losing consciousness Right leg wound secondary to above. Status post sutures Shortness of breath, possible COPD acute exacerbation. Bilateral leg cellulitis versus dermatitis Hypertension Hyperlipidemia Diabetes mellitus chronicl atrial fibrillation on Eliquis History of heart failure History of posterior arthritis Sleep apnea on CPAP/BiPAP Plan: This is a pleasant 80 years old female who presents with acute urinary tract infection, fall and weakness. Ceftriaxone Follow-up urine culture Physical therapy evaluation Start inhaled steroids and bronchodilators Check Doppler of the legs Labs and medication were reviewed.. Continue same treatment. Continue with symptomatic treatment. Resume home medication. Monitor lytes and vitals. DVT and GI prophylaxis. Further recommendationsas per clinical course of the patient DVT prophylaxis: Eliquis GI Prophylaxis: Pepcid PT/OT: Pending Prognosis is guarded
--- NOTE | 2021-05-01 18:14 | P.PN ---
Subjective Progress Note Date: 05/01/21 80-year-old female seen in the emergency department, on April 28. She presented because of an injury to her right leg. She apparently fell getting out of bed, and was concerned that she may have fractured her leg. The patient typically ambulates using a walker. She apparently fell twice on the day of admission. There was no loss of consciousness. She denied any head, neck, or back pain. According to the daughter, the patient has been falling quite frequently over the last couple of days. Also, apparently her overall health has been declining significantly, and she has not been able to care for herself at home. The patient is apparently incontinent of urine and stool. She apparently spends hours in soiled diapers. Apparently the family needs help with halfway placement. Apparently, the patient developed some shortness of breath chest congestion, and hence we were consulted. Currently, she is in no distress, and has 3 L nasal cannula, with saturations of 100%. Her respira tory rate 18-20 breaths per minute. White count 9.74, hemoglobin 11, hematocrit 37.3, and platelet count 255,000. Sodium 143, potassium 4.2, chlorides 103, CO2 28, anion gap 11, BUN 16.3, and creatinine 0.7. The urine does appear to be positive for a urinary tract infection. The urine is demonstrating gram- negative bacilli. It has yet to be identified. X-ray of the right leg, was negative for fracture. There was some subcutaneous edema and some soft tissue swelling noted. Chest x-ray shows a chronically elevated right hemidiaphragm without acute cardiopulmonary disease. Dopplers of bilateral lower extremities were negative for DVT. On 05/01/2021 patient seen in follow-up on medical surgical floor, she is sitting up in the recliner, she is eating her dinner, currently on 3 L of ox ygen, breathing comfortably. Pulse ox is 94% on 3 L, afebrile, hemodynamically she's been stable, no rhonchi or wheezes auscultated on today's exam, diminished breath sounds at bilateral bases, occasional cough, no phlegm production, no complaints of chest pain, no hemoptysis. Her chest x-ray on 04/28/2021 showed elevated right hemidiaphragm without evidence of acute cardiopulmonary disease. Patient tested negative for COVID 19. Today's blood work has been reviewed showing normal white count of 9.7, hemoglobin of 11, sodium is 143, potassium 4.2, chloride is 103, BUN of 16 creatinine 0.7 proBNP was 744 on admission, troponin was negative at 0.016, urinalysis showed possibility of urinary tract infection. Her urine culture showed E. coli. Patient is on Rocephin for antibiotic coverage for E. coli related to urinary tract infection. Objective - Vital Signs Vital signs: Vital Signs Temp 97.7 F 05/01/21 14:00 Pulse 73 05/01/21 14:00 Resp 20 05/01/21 14:00 BP 170/81 05/01/21 14:00 Pulse Ox 94 L 05/01/21 14:00 Intake & Output 04/30/21 05/01/21 05/01/21 18:59 06:59 18:59 Intake Total 100 120 Balance 100 120 Intake: Oral 100 120 Other: Voiding Method Diaper Diaper Diaper Incontinent Incontinent # Voids 1 2 18 # Bowel Movements 1 1 - Exam GENERAL EXAM: Alert, very pleasant, 80-year-old white female, on 3 L of oxygen, sitting up in the recliner, breathing currently, eating dinner comfortable in no apparent distress. HEAD: Normocephalic/atraumatic. EYES: Normal reaction of pupils, equal size. Conjunctiva pink, sclera white. NOSE: Clear with pink turbinates. THROAT: No erythema or exudates. NECK: No masses, no JVD, no thyroid enlargement, no adenopathy. CHEST: No chest wall deformity. Symmetrical expansion. LUNGS: Equal air entry with no crackles, wheeze, rhonchi or dullness. Diminished breath sounds at the bases CVS: Regular rate and rhythm, normal S1 and S2, no gallops, no murmurs, no rubs ABDOMEN: Soft, nontender. No hepatosplenomegaly, normal bowel sounds, no guarding or rigidity. EXTREMITIES: No clubbing, 1+ lower extremity edema with some redness, no cyanosis, 2+ pulses and upper and lower extremities. MUSCULOSKELETAL: Muscle strength and tone normal. SPINE: No scoliosis or deformity SKIN: No rashes CENTRAL NERVOUS SYSTEM: Alert and oriented -3. No focal deficits, tone is normal in all 4 extremities. PSYCHIATRIC: Alert and oriented -3. Appropriate affect. Intact judgment and insight. - Labs CBC & Chem 7: 04/30/21 06:31 04/30/21 06:31 Labs: Microbiology - Last 24 Hours (Table) 04/28/21 Unknown Urine Culture - Final Urine,Voided Escherichia coli Assessment and Plan Plan: Assessment: #1. Shortness of breath, chronic, chest x-ray shows no acute cardiopulmonary process, chronically elevated right hemidiaphragm, COVID-19 PCR was negative. #2. Acute urinary tract infection, urine culture positive for E. coli #3. Frequent falls at home, and patient's ascitic injury to the right leg without fracture #4. Chronic fecal and urinary incontinence #5. History of atrial fibrillation and flutter on Eliquis #6. History of CHF, unspecified #7. Diabetes mellitus type 2 #8. Hypertension #9. Hyperlipidemia #10. History of sleep apnea syndrome #11. Multiple medical problems and comorbidities Plan: Vital signs are stable, she is on 3 L of oxygen, maintaining stable O2 saturations Mild short of breath with exertion, no cough, Today's labs reviewed, white blood cell count is normal, she's had no fever or chills She is already covered with antibiotics for acute urinary tract infection Anticipate discharge to ECF possibly next 24 hours She is clear for discharge from pulmonary perspective I performed a history & physical examination of the patient and discussed their management with my nurse practitioner, Gretta Mello. I reviewed the nurse practitioner's note and agree with the documented findings and plan of care. Lung sounds are positive fordiminished breath sounds throughout the lung lópez. The findings and the impression was discussed with the patient. I attest to the documentation by the nurse practitioner. Time with Patient: Less than 30
[2021-05-02] MEDS: LEVOTHYROXINE 100 MCG TAB PO SCH ×2 (05:39→05:57)
[2021-05-02] MEDS: FAMOTIDINE 20 MG TAB PO SCH (08:47)
[2021-05-02] MEDS: cefTRIAXone 1,000 MG VIAL (IM USE) IM SCH (08:47)
[2021-05-02] MEDS: LOSARTAN 25 MG TAB PO SCH (08:48)
[2021-05-02] MEDS: APIXABAN 5 MG TAB PO SCH (08:48)
[2021-05-02] MEDS: METOPROLOL TARTRATE 25 MG TAB PO SCH (08:48)
[2021-05-02 09:18] VITALS: RESP 16
--- NOTE | 2021-05-02 10:56 | P.DS ---
Providers Date of admission: 05/01/21 08:02 Attending physician: Mani Griffin Consults: 04/29/21 13:08 Consult Physician Urgent Consulting Provider: Ronald Jorgensen Consult Reason/Comments: sob Do you want consulting provider notified?: Yes Primary care physician: Physician Nonstaff Hospital Course: Diagnoses: Acute urinary tract infection Full from her bed without losing consciousness Right leg wound secondary to above. Status post sutures Chronic Shortness of breath, secondary to elevated right hemidiaphragm, evaluated by innersole maker and cleared for discharge Bilateral leg cellulitis , improving with antibiotic Hypertension Hyperlipidemia Diabetes mellitus chronicl atrial fibrillation on Eliquis History of heart failure History of posterior arthritis Sleep apnea on CPAP/BiPAP Hospital course: this is a pleasanbt 80 yo F with past medical history of Atrial Fibrillation, Atrial Flutter on eliquis, Asthma, Heart Failure, COPD, Diabetes Mellitus, Hyperlipidemia, Hypertension, Osteoarthritis , Sleep Apnea/CPAP/BIPAP, uses walker. Complaining of from a laceration into the right leg after she fell from her bed. Patient states that she was slipped from her bed yesterday and hurt her right leg there is a wound on the right lateral leg about 2 inches in length with sutures in place .Patient does not think she lost consciousness. No headache or weakness or numbness. Patient found to have bilateral cellulitis and urinary tract infection, both infections responding to ceftriaxone, her urine culture is growing sensitive E. coli. And her leg cellulitis significantly improved and redness is much less than when she came in. However patient will need some strengthening exercises and ECF for rehab upon discharge. Spanish Lecturer evaluated her for her chronic dyspnea. And it is a due to her right hemidiaphragm Chest x-ray: Elevated right diaphragm as seen on a prior without evidence for acute cardiopulmonary disease/process. By radiologist Physical therapy recommended subacute rehab, patient agrees Patient overall improved on the day of discharge, she denies chest pain, no worsening dyspnea. No coughing. No abdominal pain or nausea vomiting. No change in urine or bowel habits. No fever -Sutures on the lopez and be taken off in 7-10 days Patient was cleared for discharge by innersole maker Problems and management plan were discussed with the patient and he verbalized understanding and acceptance Patient was found stable and can be discharged home however he needs follow-up as an outpatient. Patient was instructed to follow up with PCP within one week and patient agrees Physical exam Gen: patient is a AAOx3, no distress CVS: S1-S2, RRR, no murmur -Lungs: B/L CTA, no wheezing. Mouth breather, slightly tachypneic, which is chronic Abdomen: soft, no distention, no tenderness, positive bowel sounds -Extremity: no leg edema or induration. Bilateral leg cellulitis, improving. Significantly less redness and now is only slight pinkish discoloration. Wound on the right lateral leg is also closed and healing, suture in a Place. Time spent more than 35 minutes Patient Condition at Discharge: Serious Plan - Discharge Summary New Discharge Prescriptions: New Cefuroxime Axetil [Ceftin] 500 mg PO BID 5 Days #10 tab Continue Levothyroxine Sodium [Synthroid] 100 mcg PO DAILY Apixaban [Eliquis] 5 mg PO BID Metoprolol Tartrate 25 mg PO BID Losartan [Cozaar] 25 mg PO DAILY Discharge Medication List Levothyroxine Sodium [Synthroid] 100 mcg PO DAILY 10/05/19 [History] Apixaban [Eliquis] 5 mg PO BID 02/25/20 [History] Metoprolol Tartrate 25 mg PO BID 05/20/20 [History] Losartan [Cozaar] 25 mg PO DAILY 04/28/21 [History] Cefuroxime Axetil [Ceftin] 500 mg PO BID 5 Days #10 tab 05/01/21 [Rx] Follow up Appointment(s)/Referral(s): None,Stated [REFERRING] - 1-2 days Discharge Disposition: TRANSFER TO SNF/ECF
[2021-05-02 14:14] VITALS: BP 165/96; PULSE 65; TEMP 97.8
== END 2021-05-02 14:31 | DRG 690 ==
LOC: SUPCPDRO 13:59 → EC 13:59 → 6NMEDSUR 21:48 → OBSVTOIN 05-01 08:02
PROVIDERS: ADMIT Hospitalist; ATTEND Hospitalist
PROC: 0HQKXZZ Repair Right Lower Leg Skin, External Approach (ICD-10-PCS; principal; 2021-05-01)
DX: N39.0 Urinary tract infection, site not specified (principal); L03.115 Cellulitis of right lower limb; L03.116 Cellulitis of left lower limb; I48.92 Unspecified atrial flutter; Z20.822 Contact with and (suspected) exposure to COVID-19; B96.20 Unspecified Escherichia coli [E. coli] as the cause of diseases classified elsewhere; E11.9 Type 2 diabetes mellitus without complications; I11.0 Hypertensive heart disease with heart failure; E78.5 Hyperlipidemia, unspecified; I50.9 Heart failure, unspecified; R06.02 Shortness of breath; G47.30 Sleep apnea, unspecified; D64.9 Anemia, unspecified; S81.811A Laceration without foreign body, right lower leg, initial encounter; R15.9 Full incontinence of feces; I48.91 Unspecified atrial fibrillation; J44.9 Chronic obstructive pulmonary disease, unspecified; M19.90 Unspecified osteoarthritis, unspecified site; J98.6 Disorders of diaphragm; R39.15 Urgency of urination; R29.6 Repeated falls; W06.XXXA Fall from bed, initial encounter; R32 Unspecified urinary incontinence; Z79.01 Long term (current) use of anticoagulants; Z79.890 Hormone replacement therapy; Z79.899 Other long term (current) drug therapy; Z90.710 Acquired absence of both cervix and uterus; Z96.651 Presence of right artificial knee joint; Y92.003 Bedroom of unspecified non-institutional (private) residence as the place of occurrence of the external cause; Z88.2 Allergy status to sulfonamides; Z88.6 Allergy status to analgesic agent; Z98.84 Bariatric surgery status; Z90.49 Acquired absence of other specified parts of digestive tract; Z98.42 Cataract extraction status, left eye; Z98.41 Cataract extraction status, right eye; Z86.14 Personal history of Methicillin resistant Staphylococcus aureus infection; Z87.01 Personal history of pneumonia (recurrent); Z88.1 Allergy status to other antibiotic agents
CPT/HCPCS: 12002; 36415; 71046; 80048; 80053; 81001; 83735; 83880; 84484; 85025; 85610; 85730; 87077; 87086; 87186; 87635; 90471; 90715; 93005; 93970; 94640; 99285

== ENCOUNTER 2021-05-07 21:58 | Inpatient (IN) | payer MEDICARE ==
--- NOTE | 2021-05-07 22:57 | ED ---
General Adult HPI - General Chief complaint: Shortness of Breath Stated complaint: dyspnea Time Seen by Provider: 05/07/21 22:03 Source: EMS Mode of arrival: EMS - History of Present Illness Initial comments: Dictation was produced using [employer] dictation software. please excuse any grammatical, word or spelling errors. Chief Complaint: 80-year-old female multiple comorbidities presents to the emergency department for shortness of breath History of Present Illness: Patient is an 80-year-old female she has multiple comorbidities including atrial fibrillation, heart failure, COPD dyslipidemia hypertension and lymphedema. She presents [facility] the emergency department from [facility] for shortness of breath. Patient dates that she does not wear home oxygen. According to EMS patient's oxygen saturation dropped into the 80 percents. 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 There is also concern of confusion. EMS reports the patient is alert and oriented 1 with worsening mentation. Patient states she normally feels short of breath. Patient denies any fevers. She states she has a chronic cough. Denies any worsening lower extremity symptoms. Physical history of blood clot takes anticoagulation medications The ROS documented in this emergency department record has been reviewed and confirmed by me. Those systems with pertinent positive or negative responses have been documented in the HPI. All other systems are other negative and/or n oncontributory. PHYSICAL EXAM: General Impression: Alert and oriented x3/4, mild tachypneic HEENT: Normocephalic atraumatic, extra-ocular movements intact, pupils equal and reactive to light bilaterally, mucous membranes moist. Cardiovascular: Heart regular rate and rhythm Chest: Able to complete full sentences, no retractions, no tachypnea Abdomen: abdomen soft, non-tender, non-distended, no organomegaly Musculoskeletal: Pulses present and equal in all extremities, bilateral lower extremity lymphedema Motor: no focal deficits noted Neurological: CN II-XII grossly intact, no focal motor or sensory deficits noted Skin: Intact with no visualized rashes Psych: Normal affect and mood ED course: 80-year-old female multiple cardiopulmonary comorbidities presents to emergency department for episodic shortness of breath. Patient does not appear to be significantly confused at the bedside. She answers questions appropriately. She is mildly tachypneic but not showing any signs of signific ant respiratory distress. She states she is unvaccinated. COVID-19. Vital signs upon arrival shows 93% on 4 L nasal cannula. Chart review was performed. Patient was just in our hospital 5 days ago admitted value by pulmonology. Patient according to chart review sheet shows that she has a chronic elevated hemidiaphragm. Assumed documentation was reviewed. Patient wears 3 L nasal cannula at home CBC is unremarkable. Brain natruretic peptide is 4990. Coronavirus test is negative. Patient rebound at bedside still slightly tachypneic. X-ray showed mild CHF and right pleural effusion worsened last exam. Clinial presentation concerning for heart failure. Chart review was performed further. There is no recent echocardiogram. Patient given 40 mg of Lasix should be admitted observation consultation cardiology. - Related Data Home Medications Medication Instructions Recorded Confirmed Levothyroxine Sodium [Synthroid] 100 mcg PO DAILY 10/05/19 05/07/21 Apixaban [Eliquis] 5 mg PO BID 02/25/20 05/07/21 Metoprolol Tartrate 25 mg PO BID 05/20/20 05/07/21 Losartan [Cozaar] 25 mg PO DAILY 04/28/21 05/07/21 Magnesium Hydroxide [Milk of 7,200 mg PO Q72H PRN 05/07/21 05/07/21 Magnesia Concentrate] Na Phos,M-B/Na Phos,Di-Ba [Fleet 133 ml RECTAL DAILY PRN 05/07/21 05/07/21 Adult] bisacodyL [Dulcolax] 10 mg RECTAL HS PRN 05/07/21 05/07/21 Allergies Allergy/AdvReac Type Severity Reaction Status Date / Time thallium-201 Allergy Intermediate Rash/Hives Verified 05/07/21 22:15 sulfacetamide Allergy Unknown Unknown Verified 05/07/21 22:15 Sulfa (Sulfonamide AdvReac Severe low Verified 05/07/21 22:15 Antibiotics) hemoglobin aspirin AdvReac Mild blood in Verified 05/07/21 22:15 stool vancomycin AdvReac Rash/Hives Verified 05/07/21 22:15 steri strips AdvReac Mild blisters Uncoded 05/07/21 22:15 skin Review of Systems ROS Statement: Those systems with pertinent positive or pertinent negative responses have been documented in the HPI. ROS Other: All systems not noted in ROS Statement are negative. Past Medical History Past Medical History: Atrial Fibrillation, Atrial Flutter, Asthma, Blood Disorder, Heart Failure, COPD, Diabetes Mellitus, Hyperlipidemia, Hypertension, Osteoarthritis (OA), Pneumonia, Skin Disorder, Sleep Apnea/CPAP/BIPAP Additional Past Medical History / Comment(s): heart valve problem-not sure of name, sleep apnea-no cpap used, anemia, degenerative arthritis, diet controlled dm-patient states does not have dm, urinary incontinence, uses walker. History of Any Multi-Drug Resistant Organisms: MRSA Date of last positivie culture/infection: 06/27/18 MDRO Source:: Right Leg Past Surgical History: Appendectomy, Bariatric Surgery, Hysterectomy, Joint Replacement, Orthopedic Surgery, Tonsillectomy Additional Past Surgical History / Comment(s): Picc line insertion/later removed, lap band, right knee replacement x 2 & left knee replaced with revision, L ganglion wirst surgery, left ankle ORIF, right trigger thumb surgery, bilateral cataracts. Past Anesthesia/Blood Transfusion Reactions: Previous Problems w/ Anesthesia Additional Past Anesthesia/Blood Transfusion Reaction / Comment(s): difficulty waking up Past Psychological History: Anxiety, Depression Smoking Status: Never smoker Past Alcohol Use History: Occasional Past Drug Use History: None Reported - Past Family History Daughter(s) Family Medical History: Deep Vein Thrombosis (DVT), Pulmonary Embolus Father Family Medical History: Cancer Mother Additional Family Medical History / Comment(s): Mother had hypotension. Course Vital Signs 05/07/21 05/07/21 05/08/21 22:02 22:09 00:47 Temperature 97.1 F L Pulse Rate 57 L 68 Respiratory 22 24 Rate Blood Pressure 132/60 O2 Sat by Pulse 93 L Oximetry 05/08/21 05/08/21 05/08/21 00:51 00:52 02:45 Temperature Pulse Rate 68 60 62 Respiratory 24 22 Rate Blood Pressure 120/78 O2 Sat by Pulse 91 L 96 Oximetry 05/08/21 03:13 Temperature Pulse Rate 60 Respiratory 22 Rate Blood Pressure 132/84 O2 Sat by Pulse 97 Oximetry Medical Decision Making - Lab Data Result diagrams: 05/09/21 08:08 05/09/21 08:08 Lab Results 05/07/21 05/07/21 05/07/21 Range/Units 23:32 23:32 23:32 WBC 8.8 (3.8-10.6) k/uL RBC 3.96 (3.80-5.40) m/uL Hgb 12.2 (11.4-16.0) gm/dL Hct 39.6 (34.0-46.0) % MCV 100.2 H (80.0-100.0) fL MCH 30.7 (25.0-35.0) pg MCHC 30.7 L (31.0-37.0) g/dL RDW 13.9 (11.5-15.5) % Plt Count (150-450) k/uL MPV 9.8 Neutrophils % 73 % Lymphocytes % 13 % Monocytes % 7 % Eosinophils % 4 % Basophils % 1 % Neutrophils # 6.4 (1.3-7.7) k/uL Lymphocytes # 1.1 (1.0-4.8) k/uL Monocytes # 0.7 (0-1.0) k/uL Eosinophils # 0.4 (0-0.7) k/uL Basophils # 0.1 (0-0.2) k/uL Manual Slide Review Performed Toxic Granulation Present Hypochromasia Moderate Macrocytosis Slight PT (9.0-12.0) sec INR (<1.2) APTT (22.0-30.0) sec Sodium 138 (137-145) mmol/L Potassium 5.0 (3.5-5.1) mmol/L Chloride 96 L (98-107) mmol/L Carbon Dioxide 38 H (22-30) mmol/L Anion Gap 4 mmol/L BUN 23 H (7-17) mg/dL Creatinine 0.65 (0.52-1.04) mg/dL Est GFR (CKD-EPI)AfAm >90 (>60 ml/min/1.73 sqM) Est GFR (CKD-EPI)NonAf 84 (>60 ml/min/1.73 sqM) Glucose 125 H (74-99) mg/dL Calcium 8.3 L (8.4-10.2) mg/dL Magnesium 1.7 (1.6-2.3) mg/dL Total Bilirubin 0.8 (0.2-1.3) mg/dL AST 37 H (14-36) U/L ALT 16 (4-34) U/L Alkaline Phosphatase 67 (38-126) U/L NT-Pro-B Natriuret Pep 4990 pg/mL Total Protein 5.7 L (6.3-8.2) g/dL Albumin 3.1 L (3.5-5.0) g/dL Coronavirus (PCR) (Not Detectd) 05/07/21 05/08/21 Range/Units 23:32 00:24 WBC (3.8-10.6) k/uL RBC (3.80-5.40) m/uL Hgb (11.4-16.0) gm/dL Hct (34.0-46.0) % MCV (80.0-100.0) fL MCH (25.0-35.0) pg MCHC (31.0-37.0) g/dL RDW (11.5-15.5) % Plt Count (150-450) k/uL MPV Neutrophils % % Lymphocytes % % Monocytes % % Eosinophils % % Basophils % % Neutrophils # (1.3-7.7) k/uL Lymphocytes # (1.0-4.8) k/uL Monocytes # (0-1.0) k/uL Eosinophils # (0-0.7) k/uL Basophils # (0-0.2) k/uL Manual Slide Review Toxic Granulation Hypochromasia Macrocytosis PT 12.0 (9.0-12.0) sec INR 1.2 H (<1.2) APTT 23.0 (22.0-30.0) sec Sodium (137-145) mmol/L Potassium (3.5-5.1) mmol/L Chloride (98-107) mmol/L Carbon Dioxide (22-30) mmol/L Anion Gap mmol/L BUN (7-17) mg/dL Creatinine (0.52-1.04) mg/dL Est GFR (CKD-EPI)AfAm (>60 ml/min/1.73 sqM) Est GFR (CKD-EPI)NonAf (>60 ml/min/1.73 sqM) Glucose (74-99) mg/dL Calcium (8.4-10.2) mg/dL Magnesium (1.6-2.3) mg/dL Total Bilirubin (0.2-1.3) mg/dL AST (14-36) U/L ALT (4-34) U/L Alkaline Phosphatase (38-126) U/L NT-Pro-B Natriuret Pep pg/mL Total Protein (6.3-8.2) g/dL Albumin (3.5-5.0) g/dL Coronavirus (PCR) Not Detected (Not Detectd) Disposition Clinical Impression: Shortness of breath, Heart failure Disposition: ADMITTED IP TO THIS HOSP Condition: Fair
[2021-05-07 23:44] LABS: Basophils # (A) 0.1 k/uL (0-0.2); Basophils % (A) 1 %; Eosinophils # (A) 0.4 k/uL (0-0.7); Eosinophils % (A) 4 %; HCT 39.6 % (34.0-46.0); HGB 12.2 gm/dL (11.4-16.0); Hypochromasia Moderate; Lymphocytes # (A) 1.1 k/uL (1.0-4.8); Lymphocytes % (A) 13 %; MCH 30.7 pg (25.0-35.0); MCHC 30.7 g/dL (31.0-37.0); MCV 100.2 fL (80.0-100.0); Macrocytosis Slight; Mean Platelet Volume 9.8; Monocytes # (A) 0.7 k/uL (0-1.0); Monocytes % (A) 7 %; Neutrophils # (A) 6.4 k/uL (1.3-7.7); Neutrophils % (A) 73 %; RBC 3.96 m/uL (3.80-5.40); RDW 13.9 % (11.5-15.5); WBC 8.8 k/uL (3.8-10.6)
[2021-05-08 00:11] LABS: ALT 16 U/L (4-34); African American GFR (CKD) >90 (>60 ml/min/1.73 sqM); Anion Gap 4 mmol/L; Blood Urea Nitrogen 23 mg/dL (7-17); Calcium 8.3 mg/dL (8.4-10.2); Carbon Dioxide 38 mmol/L (22-30); Chloride 96 mmol/L (98-107); Glucose 125 mg/dL (74-99); Non-African American GFR(CKD) 84 (>60 ml/min/1.73 sqM); Sodium 138 mmol/L (137-145); Total Bilirubin 0.8 mg/dL (0.2-1.3)
[2021-05-08] MEDS ORDERED: IPRATROPIUM-ALBUTEROL 3 ML NEB INHALATION STA (00:31)
--- NOTE | 2021-05-08 00:31 | XR ---
EXAMINATION TYPE: XR chest 1V portable DATE OF EXAM: 05/07/2021 COMPARISON: 04.28.21 HISTORY: SOB TECHNIQUE: Single frontal view of the chest is obtained. FINDINGS: Heart enlarged, mild heart failure. Mild atelectasis right lung base there is blunting of right CP angle. IMPRESSION: There is mild CHF and right pleural effusion , slightly worse than old exam.
[2021-05-08] MEDS ORDERED: DEXAMETHASONE SOD PHOSPHATE 10 MG/ML 1 ML VIAL IV STA (00:36)
[2021-05-08] MEDS ORDERED: NALOXONE 0.4 MG/ML 1 ML VIAL IV PRN (00:36)
[2021-05-08] MEDS ORDERED: FUROSEMIDE 10 MG/ML 4 ML VIAL IV STA (00:40)
--- NOTE | 2021-05-08 00:58 | CT ---
EXAMINATION TYPE: CT brain wo con DATE OF EXAM: 05/08/2021 COMPARISON: 04/23/2020 HISTORY: confusion CT DLP: 1142.4 mGycm Automated exposure control for dose reduction was used. There is some cerebral cortical atrophy. There is no mass effect nor midline shift. There is no sign of intracranial hemorrhage. There is patchy hypodensity in the periventricular white matter. The calv arium is intact IMPRESSION: Cerebral atrophy and chronic small vessel ischemia. No acute intracranial abnormality. No significant change compared to old exam.
[2021-05-08 01:00] LABS: Albumin 3.1 g/dL (3.5-5.0); Magnesium 1.7 mg/dL (1.6-2.3); Total Protein 5.7 g/dL (6.3-8.2)
[2021-05-08] MEDS ORDERED: FUROSEMIDE 10 MG/ML 4 ML VIAL IV SCH (01:00)
[2021-05-08 01:01] LABS: AST 37 U/L (14-36); Alkaline Phosphatase 67 U/L (38-126)
[2021-05-08 01:02] LABS: Toxic Granulation Present
[2021-05-08 01:09] LABS: INR 1.2 (<1.2)
[2021-05-08] MEDS: SODIUM CHLORIDE 0.9% 1,000 ML IV SCH (03:45)
[2021-05-08 07:20] LABS: Glucose,Whole Blood 100 mg/dL (75-99)
--- NOTE | 2021-05-08 10:28 | CONS ---
CONSULTATION This is an 80-year-old lady with a known history of paroxysmal atrial fibrillation who came into the hospital yesterday night, brought in by the EMS saying that the patient had oxygen saturation in the 80s. She has severe COPD and episodes of confusion and multiple comorbid conditions, including diastolic heart failure, COPD and paroxysmal atrial fibrillation. After coming into the hospital, her BNP was elevated and I was asked to see her for possible congestive heart failure. This lady probably has a chronically elevated BNP in the range of 5000. She is resting comfortably. In fact, she appears to be a little dry clinically. She does not respond or communicate but is in no distress. PAST MEDICAL HISTORY: This is remarkable for paroxysmal atrial fibrillation, history of diastolic heart failure, history of hypertension, hypothyroidism, dementia. MEDICATIONS: Medications at home include apixaban 5 mg b.i.d., Cozaar 25 mg daily, levothyroxine 100 mcg daily and metoprolol tartrate 25 mg b.i.d. ALLERGIES: ASPIRIN, VANCOMYCIN AND SULFACETAMIDE. PHYSICAL EXAMINATION: On examination, blood pressure is 140/70, pulse rate is 70 per minute, . HEENT unremarkable. Fundus was not examined by me. Neck is supple. There is no JVD. I do not hear a carotid bruit. Heart exam reveals S1, S2 with rhythm, short systolic murmur at left sternal border. Lungs reveal decent air entry. Abdomen is soft, nontender. Lower extremities reveal diminished pulses. There are chronic changes. There is edema, but there are chronic changes. Central nervous system assessment was not performed, but patient is able to move all 4 extremities. EKG revealed sinus mechanism, nonspecific ST-T changes. LABORATORY DATA: Laboratory data suggest that her renal function is normal. BUN is 23. BNP is 4990. Troponin is 0.04, which I think is unremarkable. IMPRESSION: 1. History of paroxysmal atrial fibrillation. 2. Probable history of diastolic heart failure, but right now patient is not in heart failure clinically. 3. Confusion. 4. Dementia. 5. Hypertension. RECOMMENDATIONS: I am recommending that we switch her from IV to oral Lasix and obtain echocardiogram to assess LV function. The last echo was performed in November of 2019, and study at that time revealed ejection fraction of about 55% to 60% with mild to moderate mitral regurgitation. There was also moderate pulmonary hypertension. Will switch her from IV to oral Lasix and will review echocardiogram. Thank you very much for the consult. MMODL / IJN: [id number] /
[2021-05-08 10:47] LABS: Appearance,Urine Clear (Clear); Bilirubin,Urine Negative (Negative); Blood,Urine Negative (Negative); Color,Urine Colorless; Glucose,Urine (UA) Negative (Negative); Ketones,Urine Negative (Negative); Leukocyte Esterase,Urine Negative (Negative); Nitrite,Urine Negative (Negative); Protein,Urine Negative (Negative); Specific Gravity,Urine 1.006 (1.001-1.035); Urobilinogen,Urine <2.0 mg/dL (<2.0)
[2021-05-08] MEDS: LOSARTAN 25 MG TAB PO SCH (11:07)
[2021-05-08] MEDS: METOPROLOL TARTRATE 25 MG TAB PO SCH ×2 (11:07→19:26)
[2021-05-08 11:25] LABS: Glucose,Whole Blood 137 mg/dL (75-99)
--- NOTE | 2021-05-08 11:44 | ECHOF ---
Referral Reason:systolic murmur MEASUREMENTS -------- HEIGHT: 162.6 cm WEIGHT: 81.6 kg BP: IVSd: 1.5 cm (0.6 - 1.1) LVIDd: 3.7 cm (3.9 - 5.3) LVPWd: 1.7 cm (0.6 - 1.1) IVSs: 1.7 cm LVIDs: 2.6 cm LVPWs: 1.2 cm LAESV Index (A-L): 52.69 ml/m Ao Diam: 3.2 cm (2.0 - 3.7) AV Cusp: 0.9 cm (1.5 - 2.6) LA Diam: 5.1 cm (2.7 - 3.8) MV EXCURSION: 15.618 mm (> 18.000) MV EF SLOPE: 21 mm/s (70 - 150) EPSS: 0.2 cm MV E Viet: 1.32 m/s MV DecT: 252 ms MV A Viet: 1.56 m/s MV E/A Ratio: 0.85 AV maxP.97 mmHg AV meanP.72 mmHg RAP: 5.00 mmHg RVSP: 96.14 mmHg FINDINGS -------- Sinus rhythm. This was a technically adequate study. The left ventricular size is normal. There is moderate concentric left ventricular hypertrophy. O verall left ventricular systolic function is normal with, an EF between 55 - 60 %. The right ventricle is normal in size. LA is severely dilated >40 ml/m2 The right atrial size is normal. There is mild aortic regurgitation. There is mild aortic stenosis present. Peak/mean gradient acr oss the Aortic Valve is 24.97mmHg / 9.72mmHg. Mild mitral annular calcification present. Mild mitral regurgitation is present. Moderate to severe tricuspid regurgitation present. There is severe pulmonary hypertension. The r ight ventricular systolic pressure, as measured by Doppler, is 96.14mmHg. Trace/mild (physiologic) pulmonic regurgitation. Echo free space represents a pericardial fat pad. CONCLUSIONS -------- 1. The left ventricular size is normal. 2. There is moderate concentric left ventricular hypertrophy. 3. Overall left ventricular systolic function is normal with, an EF between 55 - 60 %. 4. The right ventricle is normal in size. 5. LA is severely dilated >40 ml/m2 6. The right atrial size is normal. 7. There is mild aortic regurgitation. 8. There is mild aortic stenosis present. 9. Peak/mean gradient across the Aortic Valve is 24.97mmHg / 9.72mmHg. 10. Mild mitral annular calcification present. 11. Mild mitral regurgitation is present. 12. Moderate to severe tricuspid regurgitation present. 13. There is severe pulmonary hypertension. 14. The right ventricular systolic pressure, as measured by Doppler, is 96.14mmHg. 15. Trace/mild (physiologic) pulmonic regurgitation. 16. Echo free space represents a pericardial fat pad. ANESTHESIOLOGY TECH: Yelena Fregoso RDCS
--- NOTE | 2021-05-08 13:06 | US ---
EXAMINATION TYPE: US venous doppler duplex LE BI DATE OF EXAM: 05/08/2021 12:58 PM COMPARISON: 04/29/2021 CLINICAL HISTORY: leg swelling. SIDE PERFORMED: Bilateral TECHNIQUE: The lower extremity deep venous system is examined utilizing real time linear array sonog jose with graded compression, doppler sonography and color-flow sonography. VESSELS IMAGED: Common Femoral Vein Deep Femoral Vein Greater Saphenous Vein * Femoral Vein Popliteal Vein Small Saphenous Vein * Proximal Calf Veins (* superficial vessels) Very difficult due to patient body habitus Right Leg: Negative for DVT Left Leg: Negative for DVT IMPRESSION: 1. Bilateral lower extremity ultrasound negative for deep venous thrombosis.
[2021-05-08 14:05] VITALS: BMI 31.8
--- NOTE | 2021-05-08 15:45 | P.CNPUL ---
History of Present Illness Consult date: 05/08/21 Requesting physician: Janak E Sheet (') Reason for consult: dyspnea Chief complaint: Altered mental status History of present illness: This is an 80-year-old female with history of multiple medical problems including paroxysmal atrial fibrillation, diastolic congestive heart failure, chronic obstructive pulmonary disease, hypertension, hypothyroidism, and dementia. 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 Patient has chronic venous stasis changes and recurrent cellulitis of lower extremities as well as morbid obesity. She is maintained on multiple medications including diuretics, she is also on anticoagulation therapy/Eliquis 5 mg twice a day, and the patient is on updrafts. She was last seen by Dr. PÉREZ on 04/30/21, and he felt that the patient has chronic shortness of breath related to chronic elevated right hemidiaphragm, atrial fibrillation, and chronic diastolic congestive heart failure. At any rate the patient was discharged on 05/02/21, at that time she was treated for acute urinary tract infection as well as cellulitis of the lower extremities and for her underlying COPD. Patient was readmitted yesterday from the detention with similar complaints. Apparently she is not wearing her oxygen at the detention. The patient herself is a very poor historian, apparently she has been more confused and her action level has been running low. Chest x-ray on this admission showed mild congestive heart failure and possibly a small right-sided pleural effusion as well as elevated right hemidiaphragm brain CT showed no significant abnormality except for cerebral atrophy venous Doppler of the lower extremities negative for DVT she had a relatively normal CBC and normal electrolytes and normal renal profile elevated troponin and elevated proBNP level as high as 5000 considering her shortness of breath this consult was initiated. And cardiology evaluated the patient. Echocardiogram showed severe pulmonary hypertension normal LV function and moderate to severe tricuspid regurgitation and right-sided pressures as high as 96. Remind you patient is already on anticoagulations therapy and she is maintained on Eliquis. Review of Systems ROS unobtainable: due to mental status Past Medical History Past Medical History: Atrial Fibrillation, Atrial Flutter, Asthma, Blood Disorder, Heart Failure, COPD, Diabetes Mellitus, Hyperlipidemia, Hypertension, Osteoarthritis (OA), Pneumonia, Skin Disorder, Sleep Apnea/CPAP/BIPAP Additional Past Medical History / Comment(s): heart valve problem-not sure of name, sleep apnea-no cpap used, anemia, degenerative arthritis, diet controlled dm-patient states does not have dm, urinary incontinence, uses walker. History of Any Multi-Drug Resistant Organisms: MRSA Date of last positivie culture/infection: 06/27/18 MDRO Source:: Right Leg Past Surgical History: Appendectomy, Bariatric Surgery, Hysterectomy, Joint Replacement, Orthopedic Surgery, Tonsillectomy Additional Past Surgical History / Comment(s): Picc line insertion/later removed, lap band, right knee replacement x 2 & left knee replaced with revision, L ganglion wirst surgery, left ankle ORIF, right trigger thumb surgery, bilateral cataracts. Past Anesthesia/Blood Transfusion Reactions: Previous Problems w/ Anesthesia Additional Past Anesthesia/Blood Transfusion Reaction / Comment(s): difficulty waking up Past Psychological History: Anxiety, Depression Additional Psychological History / Comment(s): . Smoking Status: Unknown if ever smoked Past Alcohol Use History: Occasional Past Drug Use History: None Reported - Past Family History Daughter(s) Family Medical History: Deep Vein Thrombosis (DVT), Pulmonary Embolus Father Family Medical History: Cancer Mother Additional Family Medical History / Comment(s): Mother had hypotension. Medications and Allergies Home Medications Medication Instructions Recorded Confirmed Type Levothyroxine Sodium [Synthroid] 100 mcg PO DAILY 10/05/19 05/07/21 History Apixaban [Eliquis] 5 mg PO BID 02/25/20 05/07/21 History Metoprolol Tartrate 25 mg PO BID 05/20/20 05/07/21 History Losartan [Cozaar] 25 mg PO DAILY 04/28/21 05/07/21 History Magnesium Hydroxide [Milk of 7,200 mg PO Q72H PRN 05/07/21 05/07/21 History Magnesia Concentrate] Na Phos,M-B/Na Phos,Di-Ba [Fleet 133 ml RECTAL DAILY PRN 05/07/21 05/07/21 History Adult] bisacodyL [Dulcolax] 10 mg RECTAL HS PRN 05/07/21 05/07/21 History Allergies Allergy/AdvReac Type Severity Reaction Status Date / Time thallium-201 Allergy Intermediate Rash/Hives Verified 05/07/21 22:15 sulfacetamide Allergy Unknown Unknown Verified 05/07/21 22:15 Sulfa (Sulfonamide AdvReac Severe low Verified 05/07/21 22:15 Antibiotics) hemoglobin aspirin AdvReac Mild blood in Verified 05/07/21 22:15 stool vancomycin AdvReac Rash/Hives Verified 05/07/21 22:15 steri strips AdvReac Mild blisters Uncoded 05/07/21 22:15 skin Physical Exam Vitals: Vital Signs Temp Pulse Pulse Pulse Resp BP BP 05/08/21 14:00 96.9 F L 87 31 H 143/79 05/08/21 08:53 76 33 H 05/08/21 07:58 97.1 F L 76 33 H 155/79 05/08/21 03:40 97.5 F L 74 19 144/86 05/08/21 03:13 60 22 132/84 05/08/21 02:45 62 22 05/08/21 00:52 60 24 120/78 05/08/21 00:51 68 05/08/21 00:47 68 05/07/21 22:09 24 05/07/21 22:02 97.1 F L 57 L 22 132/60 Pulse Ox 05/08/21 14:00 91 L 05/08/21 08:53 05/08/21 07:58 96 05/08/21 03:40 92 L 05/08/21 03:13 97 05/08/21 02:45 96 05/08/21 00:52 91 L 05/08/21 00:51 05/08/21 00:47 05/07/21 22:09 05/07/21 22:02 93 L Intake and Output 05/08/21 05/08/21 05/08/21 06:59 14:59 22:59 Other: # Voids 2 Weight 81.647 kg 81.647 kg GENERAL EXAM: Revealed 80-year-old female confused, on 6 L nasal cannula, in no distress. HEAD: Normocephalic/atraumatic. HEENT: PERRLA, EOMI, nonicteric, no neck masses no JVD. CHEST: No chest wall deformity. Symmetrical expansion. LUNGS: Diminished breath sound bilaterally no rhonchi and no wheezes. Symmetrical chest expansion. CVS: Irregular irregular rhythm, 2/6 systolic murmur thought the precordium. ABDOMEN: Obese, Soft, nontender. No hepatosplenomegaly, normal bowel sounds, no guarding or rigidity. EXTREMITIES: No clubbing, chronic venous stasis changes noted, evidence of lymphedema, and evidence of thick excoriation of the skin and lower extremities bilaterally. SKIN: As noted above regarding lower extremities. Otherwise unremarkable. CENTRAL NERVOUS SYSTEM: Confused, follows simple instructions, poor mental status Results - Laboratory Findings CBC and BMP: 05/07/21 23:32 05/07/21 23:32 PT/INR, D-dimer PT 12.0 sec (9.0-12.0) 05/08/21 00:24 INR 1.2 (<1.2) H 05/08/21 00:24 Abnormal lab findings: Abnormal Labs 05/07/21 05/07/21 05/08/21 23:32 23:32 00:24 MCV 100.2 H MCHC 30.7 L INR 1.2 H Chloride 96 L Carbon Dioxide 38 H BUN 23 H Glucose 125 H POC Glucose (mg/dL) Calcium 8.3 L AST 37 H Troponin I Total Protein 5.7 L Albumin 3.1 L 05/08/21 05/08/21 05/08/21 07:19 07:30 11:24 MCV MCHC INR Chloride Carbon Dioxide BUN Glucose POC Glucose (mg/dL) 100 H 137 H Calcium AST Troponin I 0.042 H* Total Protein Albumin - Diagnostic Findings Chest x-ray: image reviewed (As noted in HPI.) Assessment and Plan Assessment: Impression: 1: Acute on chronic hypoxic respiratory failure, multifactorial, secondary to: Acute on chronic diastolic congestive heart failure Chronic 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 Continue updrafts/DuoNeb Cut down her IV fluid to KVO Repeat chest x-ray in a.m. Start patient on low-dose steroids. Oral antibiotics suggest doxycycline 100 mg by mouth twice a day Check pro-calcitonin level and decide whether to continue with antibiotics We'll continue to follow Prognosis is relatively poor and guarded considering her multiple comorbid conditions. Time with Patient: Greater than 30
[2021-05-08] MEDS: methylPREDNISolone SOD SUCCI 40 MG/ML 1 ML VIAL IV SCH (16:07)
[2021-05-08 16:50] LABS: Glucose,Whole Blood 110 mg/dL (75-99)
[2021-05-08] MEDS: DOXYCYCLINE 100 MG CAP PO SCH (19:25)
[2021-05-08] MEDS: APIXABAN 5 MG TAB PO SCH (19:25)
[2021-05-08] MEDS ORDERED: FAMOTIDINE 20 MG/2 ML VIAL IV SCH (21:00)
[2021-05-08] MEDS: SYMBICORT 160-4.5 MCG INHALER INHALATION SCH ×2 (21:15→21:19)
[2021-05-08 23:06] LABS: Glucose,Whole Blood 90 mg/dL (75-99)
[2021-05-09] MEDS: methylPREDNISolone SOD SUCCI 40 MG/ML 1 ML VIAL IV SCH (01:14)
[2021-05-09] MEDS: SODIUM CHLORIDE 0.9% 1,000 ML IV SCH ×2 (01:59→23:24)
--- NOTE | 2021-05-09 02:03 | P.HPIM ---
History of Present Illness this is a pleasanbt 80 yo F with past medical history of Atrial Fibrillation, Atrial Flutter on eliquis, Asthma, Heart Failure, COPD, Diabetes Mellitus, Hyperlipidemia, Hypertension, Osteoarthritis , Sleep Apnea/CPAP/BIPAP, uses wa lker. she was recently discharged from the hospital on 05/02 for urinary tract infection, bilateral leg cellulitis, fall and right leg wound, and his been evaluated for her chronic dyspnea secondary related to her elevated right hemidiaphragm. this time she was sent from shelter/rehab for dyspnea and hypoxia per EMS recording oxygen saturation dropped to 80s. Also patient was confused. when i went to see the pt she was severly confused, does not follow command , withdraw to pain stimuli , with symmetrical limb movements. pt was also noted to be tachypnic . Patient is afebrile, tachypneic with a breathing rate of 22, she is saturating 96% on 6 L oxygen for nasal cannula. CBC is unremarkable for normal WBC at 8.8 which is at baseline compared to last admission. Rest of CBC, INR is unremarkable. Creatinine normal at 0.6. Glucose around 100. Troponin is elevated at 0.04. ProBNP is 4990 which is elevated. Coronary virus not detected Echocardiogram from 11/2019 showed ejection fraction of 55-60% Emergency room patient received dexamethasone, started on Lasix 40 mg twice a day with cartilage team consulted Review of Systems n.a pt could not provide information Past Medical History Past Medical History: Atrial Fibrillation, Atrial Flutter, Asthma, Blood Disorder, Heart Failure, COPD, Diabetes Mellitus, Hyperlipidemia, Hypertension, Osteoarthritis (OA), Pneumonia, Skin Disorder, Sleep Apnea/CPAP/BIPAP Additional Past Medical History / Comment(s): heart valve problem-not sure of name, sleep apnea-no cpap used, anemia, degenerative arthritis, diet controlled dm-patient states does not have dm, urinary incontinence, uses walker. History of Any Multi-Drug Resistant Organisms: MRSA Date of last positivie culture/infection: 06/27/18 MDRO Source:: Right Leg Past Surgical History: Appendectomy, Bariatric Surgery, Hysterectomy, Joint Replacement, Orthopedic Surgery, Tonsillectomy Additional Past Surgical History / Comment(s): Picc line insertion/later removed, lap band, right knee replacement x 2 & left knee replaced with revision, L ganglion wirst surgery, left ankle ORIF, right trigger thumb surgery, bilateral cataracts. Past Anesthesia/Blood Transfusion Reactions: Previous Problems w/ Anesthesia Additional Past Anesthesia/Blood Transfusion Reaction / Comment(s): difficulty waking up Past Psychological History: Anxiety, Depression Additional Psychological History / Comment(s): . Smoking Status: Unknown if ever smoked Past Alcohol Use History: Occasional Past Drug Use History: None Reported - Past Family History Daughter(s) Family Medical History: Deep Vein Thrombosis (DVT), Pulmonary Embolus Father Family Medical History: Cancer Mother Additional Family Medical History / Comment(s): Mother had hypotension. Medications and Allergies Home Medications Medication Instructions Recorded Confirmed Type Levothyroxine Sodium [Synthroid] 100 mcg PO DAILY 10/05/19 05/07/21 History Apixaban [Eliquis] 5 mg PO BID 02/25/20 05/07/21 History Metoprolol Tartrate 25 mg PO BID 05/20/20 05/07/21 History Losartan [Cozaar] 25 mg PO DAILY 04/28/21 05/07/21 History Magnesium Hydroxide [Milk of 7,200 mg PO Q72H PRN 05/07/21 05/07/21 History Magnesia Concentrate] Na Phos,M-B/Na Phos,Di-Ba [Fleet 133 ml RECTAL DAILY PRN 05/07/21 05/07/21 History Adult] bisacodyL [Dulcolax] 10 mg RECTAL HS PRN 05/07/21 05/07/21 History Allergies Allergy/AdvReac Type Severity Reaction Status Date / Time thallium-201 Allergy Intermediate Rash/Hives Verified 05/07/21 22:15 sulfacetamide Allergy Unknown Unknown Verified 05/07/21 22:15 Sulfa (Sulfonamide AdvReac Severe low Verified 05/07/21 22:15 Antibiotics) hemoglobin aspirin AdvReac Mild blood in Verified 05/07/21 22:15 stool vancomycin AdvReac Rash/Hives Verified 05/07/21 22:15 steri strips AdvReac Mild blisters Uncoded 05/07/21 22:15 skin Physical Exam Vitals: Vital Signs Temp Pulse Pulse Pulse Resp BP BP 05/08/21 07:58 97.1 F L 76 33 H 155/79 05/08/21 03:40 97.5 F L 74 19 144/86 05/08/21 03:13 60 22 132/84 05/08/21 02:45 62 22 05/08/21 00:52 60 24 120/78 05/08/21 00:51 68 05/08/21 00:47 68 05/07/21 22:09 24 05/07/21 22:02 97.1 F L 57 L 22 132/60 Pulse Ox 05/08/21 07:58 96 05/08/21 03:40 92 L 05/08/21 03:13 97 05/08/21 02:45 96 05/08/21 00:52 91 L 05/08/21 00:51 05/08/21 00:47 05/07/21 22:09 05/07/21 22:02 93 L Intake and Output 05/07/21 05/08/21 05/08/21 22:59 06:59 14:59 Other: # Voids 2 Weight 81.647 kg 81.647 kg -GENERAL: The patient is confused and obtunded, does not follow command , in mild to moderate resp distress HEENT: Pupils are round and equally reacting to light. EOMI. No scleral icterus. No conjunctival pallor. Normocephalic, atraumatic. No pharyngeal erythema. No thyromegaly. CARDIOVASCULAR: S1 and S2 present. No murmurs, rubs, or gallops. PULMONARY: Chest is clear to auscultation, no wheezing or crackles. ABDOMEN: Soft, nontender, nondistended, normoactive bowel sounds. No palpable organomegaly. MUSCULOSKELETAL: No joint swelling or deformity. EXTREMITIES: No cyanosis, clubbing, or pedal edema. -NEUROLOGICAL:obtunded ,not follow commands. withdraw symmetrically to pain stimuli . moves all extremities symmetrically , meningeal signs are absent SKIN: No rashes. No petechiae Results CBC & Chem 7: 05/07/21 23:32 05/07/21 23:32 Labs: Abnormal Lab Results - Last 24 Hours (Table) 05/07/21 05/07/21 05/08/21 Range/Units 23:32 23:32 00:24 MCV 100.2 H (80.0-100.0) fL MCHC 30.7 L (31.0-37.0) g/dL INR 1.2 H (<1.2) Chloride 96 L (98-107) mmol/L Carbon Dioxide 38 H (22-30) mmol/L BUN 23 H (7-17) mg/dL Glucose 125 H (74-99) mg/dL POC Glucose (mg/dL) (75-99) mg/dL Calcium 8.3 L (8.4-10.2) mg/dL AST 37 H (14-36) U/L Total Protein 5.7 L (6.3-8.2) g/dL Albumin 3.1 L (3.5-5.0) g/dL 05/08/21 Range/Units 07:19 MCV (80.0-100.0) fL MCHC (31.0-37.0) g/dL INR (<1.2) Chloride (98-107) mmol/L Carbon Dioxide (22-30) mmol/L BUN (7-17) mg/dL Glucose (74-99) mg/dL POC Glucose (mg/dL) 100 H (75-99) mg/dL Calcium (8.4-10.2) mg/dL AST (14-36) U/L Total Protein (6.3-8.2) g/dL Albumin (3.5-5.0) g/dL Assessment and Plan Assessment: Acute congestive heart failure, unknown ejection fraction Elevated troponin, rule out cardiac causes Altered mental status, most likely metabolic encephalopathy. Ruled out intracranial causes Recent history of Acute urinary tract infection Recent history of Fall from her bed without losing consciousness during last admission Right leg wound secondary to above. Status post sutures Chronic Shortness of breath, secondary to elevated right hemidiaphragm, evaluated by automotive internet sales manager and cleared for discharge last admission histoyr of Bilateral leg cellulites ,resolved with antibiotic Hypertension Hyperlipidemia Diabetes mellitus chronicl atrial fibrillation on Eliquis History of heart failure History of posterior arthritis Sleep apnea on CPAP/BiPAP chronic b/l lower extremities dermatitis Plan: This is a pleasant 80 years old female who presents with CHF, elevated troponin and AMS. Continue with Lasix, monitor input and output and creatinine. Cardiology consult Continue losartan and metoprolol call for pulmonary and neurology consult Labs and medication were reviewed.. Continue same treatment. Continue with symptomatic treatment. Resume home medication. Monitor lytes and vitals. DVT and GI prophylaxis. Further recommendations as per clinical course of the patient DVT prophylaxis: Eliquis GI Prophylaxis: Pepcid PT/OT: Pending Prognosis is guarded
[2021-05-09] MEDS: LEVOTHYROXINE 100 MCG TAB PO SCH (05:47)
[2021-05-09 07:24] LABS: Glucose,Whole Blood 85 mg/dL (75-99)
[2021-05-09] MEDS: APIXABAN 5 MG TAB PO SCH ×2 (07:40→20:25)
[2021-05-09] MEDS: predniSONE 50 MG TAB PO SCH ×3 (07:40→20:25)
[2021-05-09] MEDS: DOXYCYCLINE 100 MG CAP PO SCH (07:40)
[2021-05-09] MEDS: METOPROLOL TARTRATE 25 MG TAB PO SCH ×2 (07:41→20:25)
[2021-05-09] MEDS: LOSARTAN 25 MG TAB PO SCH (07:41)
[2021-05-09] MEDS: FUROSEMIDE 40 MG TAB PO SCH (07:41)
[2021-05-09 08:41] LABS: Basophils # (A) 0.1 k/uL (0-0.2); Basophils % (A) 0 %; Eosinophils % (A) 0 %; HCT 50.8 % (34.0-46.0); HGB 14.6 gm/dL (11.4-16.0); Hypochromasia Marked; Lymphocytes # (A) 0.6 k/uL (1.0-4.8); Lymphocytes % (A) 5 %; MCH 30.4 pg (25.0-35.0); MCHC 28.7 g/dL (31.0-37.0); Macrocytosis Moderate; Mean Platelet Volume 7.5; Monocytes # (A) 0.8 k/uL (0-1.0); Monocytes % (A) 7 %; Neutrophils # (A) 9.9 k/uL (1.3-7.7); Neutrophils % (A) 86 %; Platelet Count 254 k/uL (150-450); RBC 4.79 m/uL (3.80-5.40); RDW 13.7 % (11.5-15.5); WBC 11.5 k/uL (3.8-10.6)
[2021-05-09 08:48] LABS: MCV 106.2 fL (80.0-100.0)
[2021-05-09 08:56] LABS: ALT 16 U/L (4-34); African American GFR (CKD) >90 (>60 ml/min/1.73 sqM); Albumin 3.6 g/dL (3.5-5.0); Albumin/Globulin Ratio 1.3; Anion Gap 8 mmol/L; Blood Urea Nitrogen 26 mg/dL (7-17); Calcium 8.3 mg/dL (8.4-10.2); Carbon Dioxide 38 mmol/L (22-30); Chloride 95 mmol/L (98-107); Globulin 2.8 g/dL; Glucose 119 mg/dL (74-99); Non-African American GFR(CKD) 82 (>60 ml/min/1.73 sqM); Sodium 141 mmol/L (137-145); Total Bilirubin 0.9 mg/dL (0.2-1.3); Total Protein 6.4 g/dL (6.3-8.2)
[2021-05-09 08:59] LABS: AST 28 U/L (14-36); Alkaline Phosphatase 78 U/L (38-126); Potassium 4.8 mmol/L (3.5-5.1)
[2021-05-09] MEDS: SYMBICORT 160-4.5 MCG INHALER INHALATION SCH ×2 (09:18→20:32)
[2021-05-09 11:29] LABS: Glucose,Whole Blood 116 mg/dL (75-99)
--- NOTE | 2021-05-09 12:00 | PN ---
PROGRESS NOTE This is an 80-year-old lady with a history of paroxysmal atrial fibrillation, hypertension, hyperlipidemia, pulmonary hypertension and hypothyroidism. She is more alert today. Echo revealed good systolic function but significantly elevated PA pressures. I will add amlodipine to her regimen. She is not in any overt heart failure at this time. I am recommending that we add a small dose of amlodipine to her regimen and continue other medications and see how she does. Overall prognosis is poor. She is maintaining sinus rhythm. She is currently on anticoagulation. Her renal function is normal and we will continue the current dose of Eliquis. Vitals are stable. There is JVD. S1, S2 heard normally. Short systolic murmur noted. Lungs reveal bilateral improved air entry compared to yesterday. She is more awake and responding to commands to breathe. Abdomen is soft, nontender. Lower extremities reveal diminished pulses. Central nervous system: No focal deficits. Moves all 4 extremities. Would recommend that we add amlodipine 5 mg at bedtime and I will see the patient as needed from a cardiac standpoint. I will add amlodipine with parameters. MMODL / IJN: [id number] /
--- NOTE | 2021-05-09 13:46 | P.CNNES ---
History of Present Illness Consult date: 05/09/21 Requesting physician: Janak E Sheet Reason for Consult: Confusion History of Present Illness: Patient is a 80-year-old female came to the hospital by ambulance on 05/07/2021 at 10 PM for evaluation of dyspnea off and on with decreasing saturation throughout the day. Patient's oxygen would drop into the 80s and then slowly comes back up. Patient has extensive COPD history. Patient's vitals at the scene was blood pressure 156/64, pulse rate 65, respiration 24, saturation 87%. Chest x-ray showed mild CHF and right pleural effusion, slightly worse than old exam. EKG shows normal sinus rhythm, possible left atrial enlargement. CT head showed cerebral atrophy and chronic small vessel ischemia. No acute intracr anial abnormality. 2-D echo shows normal left ventricular size. Moderate concentric LVH. EF is 55-60%. Left atrium was severely dilated. Right atrial size is normal. Mild aortic regurgitation. Severe pulmonary hypertension. Venous Doppler negative for DVTs. Patient's blood test shows normal CBC with slightly elevated MCV 100.2. PT/PTT normal, electrolytes are normal, BUN 23 creatinine 0.65. AST is 37 with normal ALT 16. UA negative. Medeiros virus PCR negative. Troponin is mildly elevated 0.042. Patient's last hemoglobin A1c 5.5 on 05/31/2020. TSH is normal 3.3 on 09/13/2020. Patient was noted to be extremely confused yesterday, less arousable, which prompted neurology consultation. Per nurse report, it appeared patient would elect not to answer the questions. She would only nod her head in the affirmative or negative way. She would keep her eyes closed. Today she is c ompletely opposite, fully perked up. Per nurse she has been admitted to the hospital multiple times in the past, often gets agitated, sometimes delirious, sometimes less responsive. Patient's medications include levothyroxine, metoprolol and Eliquis Patient states that she lives with a friend. She states she has 2 children, ages "6 and 7 years" of age. She denies tobacco or alcohol. Review of Systems Patient is short of breath. Denies any chest pain. Patient has edema. Denies any problem with the vision. No hoarseness, sore throat or dysphagia. No numbness or tingling. Patient has generalized weakness. Patient did not elect to answer most of the questions for review of systems. ROS unobtainable: due to mental status Past Medical History Past Medical History: Atrial Fibrillation, Atrial Flutter, Asthma, Blood Disorder, Heart Failure, COPD, Diabetes Mellitus, Hyperlipidemia, Hypertension, Osteoarthritis (OA), Pneumonia, Skin Disorder, Sleep Apnea/CPAP/BIPAP Additional Past Medical History / Comment(s): heart valve problem-not sure of name, sleep apnea-no cpap used, anemia, degenerative arthritis, diet controlled dm-patient states does not have dm, urinary incontinence, uses walker. History of Any Multi-Drug Resistant Organisms: MRSA Date of last positivie culture/infection: 06/27/18 MDRO Source:: Right Leg Past Surgical History: Appendectomy, Bariatric Surgery, Hysterectomy, Joint Replacement, Orthopedic Surgery, Tonsillectomy Additional Past Surgical History / Comment(s): Picc line insertion/later removed, lap band, right knee replacement x 2 & left knee replaced with revision, L ganglion wirst surgery, left ankle ORIF, right trigger thumb surgery, bilateral cataracts. Past Anesthesia/Blood Transfusion Reactions: Previous Problems w/ Anesthesia Additional Past Anesthesia/Blood Transfusion Reaction / Comment(s): difficulty waking up Past Psychological History: Anxiety, Depression Additional Psychological History / Comment(s): . Smoking Status: Unknown if ever smoked Past Alcohol Use History: Occasional Past Drug Use History: None Reported - Past Family History Daughter(s) Family Medical History: Deep Vein Thrombosis (DVT), Pulmonary Embolus Father Family Medical History: Cancer Mother Additional Family Medical History / Comment(s): Mother had hypotension. Medications and Allergies Home Medications Medication Instructions Recorded Confirmed Type Levothyroxine Sodium [Synthroid] 100 mcg PO DAILY 10/05/19 05/07/21 History Apixaban [Eliquis] 5 mg PO BID 02/25/20 05/07/21 History Metoprolol Tartrate 25 mg PO BID 05/20/20 05/07/21 History Losartan [Cozaar] 25 mg PO DAILY 04/28/21 05/07/21 History Magnesium Hydroxide [Milk of 7,200 mg PO Q72H PRN 05/07/21 05/07/21 History Magnesia Concentrate] Na Phos,M-B/Na Phos,Di-Ba [Fleet 133 ml RECTAL DAILY PRN 05/07/21 05/07/21 History Adult] bisacodyL [Dulcolax] 10 mg RECTAL HS PRN 05/07/21 05/07/21 History Allergies Allergy/AdvReac Type Severity Reaction Status Date / Time thallium-201 Allergy Intermediate Rash/Hives Verified 05/07/21 22:15 sulfacetamide Allergy Unknown Unknown Verified 05/07/21 22:15 Sulfa (Sulfonamide AdvReac Severe low Verified 05/07/21 22:15 Antibiotics) hemoglobin aspirin AdvReac Mild blood in Verified 05/07/21 22:15 stool vancomycin AdvReac Rash/Hives Verified 05/07/21 22:15 steri strips AdvReac Mild blisters Uncoded 05/07/21 22:15 skin Physical Examination - Vital Signs Vital Signs: Vital Signs Temp Pulse Pulse Resp BP Pulse Ox 05/09/21 07:59 72 20 05/09/21 07:48 97.7 F 72 20 157/81 93 L 05/09/21 02:00 98.1 F 78 19 159/82 93 L 05/08/21 20:00 74 87 31 H 05/08/21 14:00 96.9 F L 87 31 H 143/79 91 L Intake and Output 05/08/21 05/09/21 05/09/21 22:59 06:59 14:59 Intake Total 100 Output Total 800 Balance 100 -800 Intake: Oral 100 Output: Urine 800 Other: # Voids 2 Patient is an elderly female, who is in mild respiratory distress. She has oxygen nasal cannula, but she often takes it off. Patient is alert awake, knows her name, but things is 18 years old. She then said she was 25 years old. She could not tell what city she is in, although states that she is in [place]. She states the city is [facility], but then said it is "a [place]". When I asked explanation, states "it's the name of a girl I met on the street". Then she said that she lives in this city, and when asked what city is this, she said [place]. She states the month is April and year is . She could not tell me the name of the current president. When given multiple choices, states "Nicole, I think". She has significantly decreased attention span, concentration and fund of knowledge. Speech and language functions are normal. Patient can name objects like a pen, glasses, knuckles and repeat very well. No aphasia or dysarthria. On cranial examination, pupils are round and reacting to light, visual lópez are full on confrontation, with no neglect on double simultaneous stimulation. Her extraocular muscles are intact with no nystagmus. Face is symmetric, tongue protrudes to the midline. Palatal elevation and sensation normal, hearing is mildly decreased and shoulder shrug normal, facial sensation normal. On muscle strength testing, there is no pronator drift and the strength is nor mal in arms and legs distally and proximally, except hip flexion, which is slightly weak because of deconditioning bilaterally. Deep tendon reflexes are 2+ in the arms and legs and plantars downgoing Sensory to touch is equal with no neglect. Cerebellar function showed no ataxia for [id number] testing. Tone and bulk of muscles normal. Gait not checked. On general examination, there is no carotid bruit or murmur, S1-S2 audible. Abdomen is soft nontender with no organomegaly. Chest has some crackles. Peripheral pulses are not present. Patient has moderate peripheral edema. She has hyperpigmented, thickened, leather type skin from her feet all the way to below knees bilaterally. Results - Laboratory Findings CBC and BMP: 05/09/21 08:08 05/09/21 08:08 Abnormal Lab Findings: Abnormal Labs 05/07/21 05/07/21 05/08/21 23:32 23:32 00:24 WBC Hct MCV 100.2 H MCHC 30.7 L Neutrophils # Lymphocytes # INR 1.2 H Chloride 96 L Carbon Dioxide 38 H BUN 23 H Glucose 125 H POC Glucose (mg/dL) Calcium 8.3 L AST 37 H Troponin I Total Protein 5.7 L Albumin 3.1 L 05/08/21 05/08/21 05/08/21 07:19 07:30 11:24 WBC Hct MCV MCHC Neutrophils # Lymphocytes # INR Chloride Carbon Dioxide BUN Glucose POC Glucose (mg/dL) 100 H 137 H Calcium AST Troponin I 0.042 H* Total Protein Albumin 05/08/21 05/09/21 05/09/21 16:48 08:08 08:08 WBC 11.5 H Hct 50.8 H MCV 106.2 H D MCHC 28.7 L Neutrophils # 9.9 H Lymphocytes # 0.6 L INR Chloride 95 L Carbon Dioxide 38 H BUN 26 H Glucose 119 H POC Glucose (mg/dL) 110 H Calcium 8.3 L AST Troponin I Total Protein Albumin Assessment and Plan Assessment: * Altered mental status, likely due to delirium from hypoxemia, and other reasons mentioned as below. * Probable underlying dementia. * COPD exacerbation, with history of severe COPD * Hypertension * History of CHF * Paroxysmal atrial fibrillation * Peripheral edema, venous stasis. * Macrocytosis, rule out B12/folate deficiency. Plan: * Patient has delirium, likely due to multiple medical/metabolic conditions as mentioned above. * Treatment of underlying medical conditions as per IM and other specialties. * We will check B12, folate to rule out B12 deficiency. * Patient has atrial fibrillation, continue Eliquis for stroke prevention. Telemetry monitoring showing sinus rhythm in the 80s, sinus arrhythmia. * We will discuss with family members about her baseline inpatient. Patient may be a candidate for cognitive enhancing medication. * Tried to call patient's daughter twice for collateral history, but she did not order picker the phone. * We will follow patient clinically.
--- NOTE | 2021-05-09 14:34 | P.PN ---
Subjective Progress Note Date: 05/09/21 Principal diagnosis: Shortness of breath This is an 80-year-old female with history of multiple medical problems including paroxysmal atrial fibrillation, diastolic congestive heart failure, chronic obstructive pulmonary disease, hypertension, hypothyroidism, and dementia. 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 Patient has chronic venous stasis changes and recurrent cellulitis of lower extremities as well as morbid obesity. She is maintained on multiple medications including diuretics, she is also on anticoagulation therapy/Eliquis 5 mg twice a day, and the patient is on updrafts. She was last seen by Dr. PÉREZ on 04/30/21, and he felt that the patient has chronic shortness of breath related to chronic elevated right hemidiaphragm, atrial fibrillation, and chronic diastolic congestive heart failure. At any rate the patient was discharged on 05/02/21, at that time she was treated for acute urinary tract infection as well as cellulitis of the lower extremities and for her underlying COPD. Patient was readmitted yesterday from the detention with similar complaints. Apparently she is not wearing her oxygen at the detention. The patient herself is a very poor historian, apparently she has been more confused and her action level has been running low. Chest x-ray on this admission showed mild congestive heart failure and possibly a small right-sided pleural effusion as well as elevated right hemidiaphragm brain CT showed no significant abnormality except for cerebral atrophy venous Doppler of the lower extremities negative for DVT she had a relatively normal CBC and normal electrolytes and normal renal profile elevated troponin and elevated proBNP level as high as 5000 considering her shortness of breath this consult was initiated. And cardiology evaluated the patient. Echocardiogram showed severe pulmonary hypertension normal LV function and moderate to severe tricuspid regurgitation and right-sided pressures as high as 96. Remind you patient is already on anticoagulations therapy and she is maintained on Eliquis. On 05/09/2021 patient seen in follow-up on medical surgical floor. She is sitting up in the recliner, looks very comfortable, does not appear to be in any acute distress, she states her breathing is a little better, she is currently on 4 L of oxygen her pulse ox is 93%. Occasional cough, not bringing up any phlegm, no chest pain. Patient has been afebrile. She tested negative for COVID-19, she had been treated for acute exacerbation of diastolic CHF, and possibility of pneumonia. Patient's echocardiogram has been repeated bowing EF of 55-60%, moderate to severe tricuspid regurg, and severe pulmonary hypertension with right-sided pressure of 96.1 mmHg. Pro calcitonin level was negative, proBNP was elevated at 4990. Patient has been diuresed, she is also on oral doxycycline for possibility of pneumonia, she is on Eliquis for paroxysmal atrial fibrillation, lower extremity Dopplers were negative, she has been transitioned to oral prednisone. Does not appear to be in any acute distress, nephrology is following in regards to confusion, which seems to be improved Objective - Vital Signs Vital signs: Vital Signs Temp 97.7 F 05/09/21 07:48 Pulse 72 05/09/21 07:59 Resp 20 05/09/21 07:59 BP 157/81 05/09/21 07:48 Pulse Ox 93 L 05/09/21 07:48 Intake & Output 05/08/21 05/09/21 05/09/21 18:59 06:59 18:59 Intake Total 100 Output Total 800 Balance -700 Weight 81.647 kg Intake: Oral 100 Output: Urine 800 Other: # Voids 2 - Exam GENERAL EXAM: Alert, pleasant, 80-year-old white female, sitting up in the recliner, currently on 12 L of oxygen comfortable in no apparent distress. HEAD: Normocephalic/atraumatic. EYES: Normal reaction of pupils, equal size. Conjunctiva pink, sclera white. NOSE: Clear with pink turbinates. THROAT: No erythema or exudates. NECK: No masses, no JVD, no thyroid enlargement, no adenopathy. CHEST: No chest wall deformity. Symmetrical expansion. LUNGS: Equal air entry with crackles CVS: Irregular rate and rhythm, normal S1 and S2, no gallops, no murmurs, no rubs ABDOMEN: Soft, nontender. No hepatosplenomegaly, normal bowel sounds, no guarding or rigidity. EXTREMITIES: No clubbing, no edema, no cyanosis, 2+ pulses and upper and lower extremities. MUSCULOSKELETAL: Muscle strength and tone normal. SPINE: No scoliosis or deformity SKIN: No rashes CENTRAL NERVOUS SYSTEM: Alert and oriented -3. No focal deficits, tone is normal in all 4 extremities. PSYCHIATRIC: Alert and oriented -3. Appropriate affect. Intact judgment and insight. - Labs CBC & Chem 7: 05/09/21 08:08 05/09/21 08:08 Labs: Abnormal Lab Results - Last 24 Hours (Table) 05/08/21 05/09/21 05/09/21 Range/Units 16:48 08:08 08:08 WBC 11.5 H (3.8-10.6) k/uL Hct 50.8 H (34.0-46.0) % MCV 106.2 H D (80.0-100.0) fL MCHC 28.7 L (31.0-37.0) g/dL Neutrophils # 9.9 H (1.3-7.7) k/uL Lymphocytes # 0.6 L (1.0-4.8) k/uL Chloride 95 L (98-107) mmol/L Carbon Dioxide 38 H (22-30) mmol/L BUN 26 H (7-17) mg/dL Glucose 119 H (74-99) mg/dL POC Glucose (mg/dL) 110 H (75-99) mg/dL Calcium 8.3 L (8.4-10.2) mg/dL 05/09/21 Range/Units 11:25 WBC (3.8-10.6) k/uL Hct (34.0-46.0) % MCV (80.0-100.0) fL MCHC (31.0-37.0) g/dL Neutrophils # (1.3-7.7) k/uL Lymphocytes # (1.0-4.8) k/uL Chloride (98-107) mmol/L Carbon Dioxide (22-30) mmol/L BUN (7-17) mg/dL Glucose (74-99) mg/dL POC Glucose (mg/dL) 116 H (75-99) mg/dL Calcium (8.4-10.2) mg/dL Assessment and Plan Plan: Assessment: #1. Acute on chronic hypoxic respiratory failure, multifactorial, secondary to acute on chronic CHF with diastolic dysfunction, chronic right hemidiaphragmatic elevation and possible paralysis, severe underlying COPD, severe pulmonary hypertension, and paroxysmal atrial fibrillation #2. Altered mental status, multifactorial, seems to be improving, nephrology is following #3. Type 2 diabetes mellitus #4. Obstructive sleep apnea syndrome #5. Dyslipidemia #6. Dementia Plan: She is breathing comfortably on today's exam Still requiring high flow oxygen currently at 12 L Vital signs are stable, no fever or chills AT the level is negative, we can discontinue the doxycycline Continue Lasix and nebulized bronchodilators Continue oral steroids Continue the Eliquis Follow-up chest x-ray in the morning I performed a history & physical examination of the patient and discussed their management with my nurse practitioner, Gretta Mello. I reviewed the nurse practitioner's note and agree with the documented findings and plan of care. Stefani ng sounds are positive for basilar rales hroughout the lung lópez. The findings and the impression was discussed with the patient. I attest to the documentation by the nurse practitioner. Time with Patient: Less than 30
[2021-05-09 17:13] LABS: Glucose,Whole Blood 127 mg/dL (75-99)
[2021-05-09] MEDS: amLODIPine 5 MG TAB PO SCH (20:25)
[2021-05-09 21:06] LABS: Glucose,Whole Blood 115 mg/dL (75-99)
[2021-05-09 21:15] LABS: Folate, Serum >20.00 ng/mL (4.40-31.00)
[2021-05-10] MEDS: LEVOTHYROXINE 100 MCG TAB PO SCH (05:57)
[2021-05-10 07:04] LABS: Glucose,Whole Blood 125 mg/dL (75-99)
--- NOTE | 2021-05-10 07:41 | XR ---
EXAMINATION TYPE: XR chest 1V portable DATE OF EXAM: 05/10/2021 COMPARISON: 05/07/2021 INDICATION: Atypical pneumonia TECHNIQUE: Single frontal view of the chest is obtained. FINDINGS: The heart size is enlarged. The pulmonary vasculature is normal. There is near complete opacification of the right lung. There is shift of the trachea towards the rig ht. Small amount of airspace remains partially aerated in the right upper peripheral lung. IMPRESSION: 1. Near complete opacification of the right lung. Correlate for atelectasis and effusion. Findings de veloping from comparison
[2021-05-10] MEDS: APIXABAN 5 MG TAB PO SCH ×2 (07:56→20:39)
[2021-05-10] MEDS: METOPROLOL TARTRATE 25 MG TAB PO SCH ×2 (07:56→21:11)
[2021-05-10] MEDS: predniSONE 50 MG TAB PO SCH (07:57)
[2021-05-10] MEDS: LOSARTAN 25 MG TAB PO SCH (07:57)
[2021-05-10] MEDS: FUROSEMIDE 40 MG TAB PO SCH (07:57)
[2021-05-10] MEDS: SYMBICORT 160-4.5 MCG INHALER INHALATION SCH ×2 (08:37→20:58)
--- NOTE | 2021-05-10 09:35 | US ---
EXAMINATION TYPE: US chest DATE OF EXAM: 05/10/2021 COMPARISON: NONE CLINICAL HISTORY: Right pleural effusion. TECHNIQUE: Targeted ultrasound of the posterior lower right hemithorax EXAM MEASUREMENTS: Right Pleural Effusion pocket size: 5.8 cm Right skin surface to fluid distance: 3.8 cm Right side marked for possible thoracentesis outside the dept. Pulmonologists are able to review the images in the patient?s EMR. IMPRESSIONS: Right pleural effusion
[2021-05-10 11:50] LABS: Glucose,Whole Blood 118 mg/dL (75-99)
--- NOTE | 2021-05-10 12:41 | P.PN ---
Subjective Progress Note Date: 05/10/21 This is an 80-year-old female with history of multiple medical problems including paroxysmal atrial fibrillation, diastolic congestive heart failure, chronic obstructive pulmonary disease, hypertension, hypothyroidism, and dementia. 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 Patient has chronic venous stasis changes and recurrent cellulitis of lower extremities as well as morbid obesity. She is maintained on multiple medications including diuretics, she is also on anticoagulation therapy/Eliquis 5 mg twice a day, and the patient is on updrafts. She was last seen by Dr. PÉREZ on 04/30/21, and he felt that the patient has chronic shortness of breath related to chronic elevated right hemidiaphragm, atrial fibrillation, and chronic diastolic congestive heart failure. At any rate the patient was discharged on 05/02/21, at that time she was treated for acute urinary tract infection as well as cellulitis of the lower extremities and for her underlying COPD. Patient was readmitted yesterday from the alf with similar complaints. Apparently she is not wearing her oxy gen at the alf. The patient herself is a very poor historian, apparently she has been more confused and her action level has been running low. Chest x-ray on this admission showed mild congestive heart failure and possibly a small right-sided pleural effusion as well as elevated right hemidiaphragm brain CT showed no significant abnormality except for cerebral atrophy venous Doppler of the lower extremities negative for DVT she had a relatively normal CBC and normal electrolytes and normal renal profile elevated troponin and elevated proBNP level as high as 5000 considering her shortness of breath this consult was initiated. And cardiology evaluated the patient. Echocardiogram s howed severe pulmonary hypertension normal LV function and moderate to severe tricuspid regurgitation and right-sided pressures as high as 96. Remind you patient is already on anticoagulations therapy and she is maintained on Eliquis. On 05/09/2021 patient seen in follow-up on medical surgical floor. She is sitting up in the recliner, looks very comfortable, does not appear to be in any acute distress, she states her breathing is a little better, she is currently on 4 L of oxygen her pulse ox is 93%. Occasional cough, not bringing up any phlegm, no chest pain. Patient has been afebrile. She tested negative for COVID-19, she had been treated for acute exacerbation of diastolic CHF, and possibility of pneumonia. Patient's echocardiogram has been repeated bowing EF of 55-60%, moderate to severe tricuspid regurg, and severe pulmonary hypertension with right-sided pressure of 96.1 mmHg. Pro calcitonin level was negative, proBNP was elevated at 4990. Patient has been diuresed, she is also on oral doxycycline for possibility of pneumonia, she is on Eliquis for paroxysmal atrial fibrillation, lower extremity Dopplers were negative, she has been transitioned to oral prednisone. Does not appear to be in any acute distress, nephrology is following in regards to confusion, which seems to be improved. The patient is seen today 05/10/2021 in follow-up on the regular medical floor. She is currently resting fairly comfortably in bed. She is arousable. She has waxing and waning mental status. Sometime she is somewhat unresponsive and at times she is wide awake and alert. Today's chest x-ray shows near complete opacification of the right hemithorax. Ultrasound of the right chest revealed a small pocket at 5.8 cm of fluid. Also possible mucous plug. We were going to attempt blood gases on her however she woke up and was fighting and resisting and refusing. She is anticoagulated with Eliquis. She is receiving oral diuretics. Objective - Vital Signs Vital signs: Vital Signs Temp 97.7 F 05/10/21 07:00 Pulse 78 05/10/21 07:00 Resp 17 05/10/21 07:00 BP 155/85 05/10/21 07:00 Pulse Ox 97 05/10/21 07:00 Intake & Output 05/09/21 05/10/21 05/10/21 18:59 06:59 18:59 Intake Total 500 Output Total 900 500 Balance -400 -500 Intake: Oral 500 Output: Urine 900 500 Other: # Voids 1 - Exam GENERAL EXAM: 80-year-old female, resting in bed, arousable, currently on 8 L of oxygen comfortable in no apparent distress. HEAD: Normocephalic/atraumatic. EYES: Normal reaction of pupils, equal size. Conjunctiva pink, sclera white. NOSE: Clear with pink turbinates. THROAT: No erythema or exudates. NECK: No masses, no JVD, no thyroid enlargement, no adenopathy. CHEST: No chest wall deformity. Symmetrical expansion. LUNGS: Diminished breath sounds on the right lung, crackles in the bases CVS: Irregular rate and rhythm, normal S1 and S2, no gallops, no murmurs, no rubs ABDOMEN: Soft, nontender. No hepatosplenomegaly, normal bowel sounds, no guarding or rigidity. EXTREMITIES: No clubbing, no edema, no cyanosis, 2+ pulses and upper and lower extremities. MUSCULOSKELETAL: Muscle strength and tone normal. SPINE: No scoliosis or deformity SKIN: No rashes CENTRAL NERVOUS SYSTEM: Alert and oriented -1. No focal deficits, tone is normal in all 4 extremities. PSYCHIATRIC: Alert and oriented -1. Appropriate affect. Intact judgment and insight. - Labs CBC & Chem 7: 05/09/21 08:08 05/09/21 08:08 Labs: Abnormal Lab Results - Last 24 Hours (Table) 05/09/21 05/09/21 05/10/21 Range/Units 16:57 21:05 07:02 POC Glucose (mg/dL) 127 H 115 H 125 H (75-99) mg/dL 05/10/21 Range/Units 11:47 POC Glucose (mg/dL) 118 H (75-99) mg/dL Assessment and Plan Assessment: 1 Acute on chronic hypoxic respiratory failure, multifactorial, secondary to acute on chronic CHF with diastolic dysfunction, chronic right hemidiaphragmatic elevation and possible paralysis, severe underlying COPD, severe pulmonary hypertension, and paroxysmal atrial fibrillation. On chest x-ray today 05/10/2021 is showing near complete opacification the right hemithorax. Currently on 8 L high flow nasal cannula. 2 Altered mental status, multifactorial, seems to be waxing and waning, r efusing blood gases. Computed tomography scan of the brain revealed no acute intracranial abnormality. 3 Type 2 diabetes mellitus 4 Obstructive sleep apnea syndrome 5 Dyslipidemia 6 Dementia Plan: The patient was seen and evaluated Chest x-ray showing near complete opacification of the right lung Ultrasound of the right chest with a 5.8 cm pocket Her mentation is waxing and waning Arousable, then more alert, resistant and refusing arterial blood gas Will hold Eliquis in an attempt to perform right-sided thoracentesis May benefit from BiPAP She may also need a bronchoscopy with BAL Continue bronchodilators, prednisone Continue diuretics We will continue to follow I, the cosigning physician, performed a history & physical examination of the patient. Lungs sounds are diminished in the right lung, crackles in the bases. Maintaining good O2 saturations in the 90s on 8 L high flow nasal cannula. I discussed the assessment and plan of care with my nurse practitioner, Sweta Cunha. I attest to the above note as dictated by her.
--- NOTE | 2021-05-10 15:55 | P.PN ---
Subjective Progress Note Date: 05/09/21 HISTORY OF PRESENT ILLNESS: This is an 80-year-old female with a previous medical history signi ficant for hypertension and hypertensive cardiovascular disease, hyperlipidemia, chronic atrial fibrillation/flutter, chronic COPD, chronic diastolic heart failure, severe pulmonary hypertension, ulcerative sleep apnea with obesity hypoventilation syndrome, chronic stasis dermatitis with cellulitis of both lower extremities, [facility] on 05/[facility]/2021 after she was admitted for what appears to be a urinary tract infection as well as bilateral lower extremity cellulitis she was sent to [facility] for physical therapy, she also was diagnosed with significant paralysis of the right hemidiaphragm that's part of her dyspnea that she has, patient while she was at the halfway developed to have a significant confusion with the staff not able to keep her oxygenation higher than 85% on nonrebreather, they were directed to send the patient to the emergency department via EMS patient was seen and evaluated in the emergency department and she was found to be hypoxemic and tachypneic as well her chest x-ray did show poorly vascular congestion, urinalysis did not show evidence of any acute urinary tract infection, patient was placed on 6 L is a cannula, she was found to have an elevated troponin and she was admitted to the hospital and she was seen in consultation by cardiology as well as pulmonary medicine and in regards to her confusion neurology consultation was obtained for metabolic encephalopathy. 05/08: Patient is sitting up in bed that appears to be somewhat confused, opens her eyes in response to verbal supply she is currently on 6 L nasal cannula, she was seen earlier by cardiology, she is placed on Lasix, she is placed back on her medication including Eliquis 5 mg orally twice every day as well as metoprolol 25 mg orally twice every day, Lasix 40 mg orally once every day. REVIEW OF SYSTEMS: Constitutional: No documented fever, no chills, no night sweats. No weight change. Positive for weakness, positive for fatigue and lethargy. daytime sleepiness. HEENT: No headache. No blurred vision or double vision, no loss of vision. No loss of Hearing, no ringing in the ears, no dizziness. No nasal drainage or congestion. No epistaxis. No sore throat. Lungs: Positive for shortness of breath, no cough, no sputum production. No wheezing. Reports dyspnea with activity. Cardiovascular: No chest pain, positive for lower extremity edema. No palpitations. No paroxysmal nocturnal dyspnea. positive for orthopnea. No lightheadedness or dizziness. No syncopal episodes. Abdominal: Reports abdominal pain. No nausea, vomiting. No diarrhea. No constipation. No bloody or tarry stools reports loss of appetite. Genitourinary: No dysuria, increased frequency, urgency. No urinary retention. Musculoskeletal: no myalgias. positive for muscle weakness, positive for gait dysfunction, no frequent falls. No back pain. No neck pain. Integumentary: No wounds, no lesions. rash or pruritus. No unusual bruising. No change in hair or nails. Neurologic: No aphasia. No facial droop. positive for change in mentation. No head injury. No headache. No paralysis. No paresthesia. Psychiatric: No depression. No anxiety. No mood swings. Endocrine: No abnormal blood sugars. No weight change. PHYSICAL EXAMINATION: General: 80-year-old female laying down in bed appears to be in mild respiratory HEENT: Head is atraumatic, normocephalic, pupils were equal round reactive to light and recommendation, extraocular muscle movement were intact, sclera nonicteric, conjunctivae were pale, mucous membranes of the mouth are somewhat dry. Neck: Supple, no JVP, normal carotid upstroke bilaterally, no lymphadenopathy. Chest: Decreased breath sounds at the bases, few rhonchi, mild expiratory wheezes, no chest wall tenderness, mild intercostal retractions. Heart: First heart sound is normal, second heart sounds normal, there is systolic ejection murmur 2/6 located in the left sternal border. Abdomen: Soft, nontender, nondistended, positive bowel sounds, there is no hepatosplenomegaly. Extremities: There is +2 edema, no calf tenderness, bilateral stasis dermatitis, chronic skin changes, dorsalis pedis +2 bilaterally. Neurologic examination: Patient is drowsy opens her eyes in response to verbal supply, cranial nerves II-12 appear grossly intact, muscle power were 3 out of 5 in upper extremities and 3out of 5 in bilateral lower extremities, deep tendon reflexes normal bilaterally. ASSESSMENT AND PLAN: 1. Acute hypoxemic respiratory failure secondary to acute on chronic diastolic heart failure and acute COPD exacerbation with paralysis of the right hemidiaphragm. Continue patient on Lasix 40 mg once every day, continue meto prolol 25 mg orally twice every day, continue patient on oxygen support, wean her oxygen to keep her saturation between 91-93%, pulmonary consultation as well as cardiology consultation. Continue the patient on Vish was 5 mg orally twice every day. 2. Metabolic encephalopathy likely related to CO2 narcosis along with hypoxemia. Try to wean the patient oxygen down to keep her saturation between 91-93%. Neurology consultation appreciated. 3. History of atrial flutter/fibrillation. Continue patient on metoprolol 25 milligrams twice every day, Eliquis 5 mg orally twice every day. 4. Hypertension and hypertensive cardio vascular disease. Continue patient on losartan 25 mg once every day, metoprolol 25 mg orally twice every day, amlodipine 5 minute gram at the time. 5. Hypothyroidism. Continue patient on levothyroxin 100 g orally once every day. 6. Severe pulmonary hypertension. Continue patient on Lasix 40 mg once every day as well as metoprolol 25 mg twice every day and losartan 25 minute gram orally once every day. 7. Vascular dementia. Patient can be started on small dose of Namenda as an outpatient. 8. History of recent UTI. Resolved. 9. Chronic stasis dermatitis of both lower extremity is with a prior history of bilateral lower extremity cellulitis. Stable. 10. History of COPD. Continue oxygen support, continue Symbicort 160/4.5 g 2 puffs inhalation twice every day, prednisone 50 mg orally once every day. 11. DVT prophylaxis. Continue patient on Eliquis 5 mg orally twice every day per 12. GI prophylaxis. Pepcid 20 mg orally once every day. 13.Physical therapy evaluation. 14. Plan is for the patient to go back to [facility]. Objective - Vital Signs Vital signs: Vital Signs Temp 97.7 F 05/09/21 07:48 Pulse 72 05/09/21 07:48 Resp 20 05/09/21 07:48 BP 157/81 05/09/21 07:48 Pulse Ox 93 L 05/09/21 07:48 Intake & Output 05/08/21 05/09/21 05/09/21 18:59 06:59 18:59 Intake Total 100 Output Total 800 Balance -700 Weight 81.647 kg Intake: Oral 100 Output: Urine 800 Other: # Voids 2 - Labs CBC & Chem 7: 12/28/21 08:08 05/09/21 08:08 Labs: Abnormal Lab Results - Last 24 Hours (Table) 05/08/21 05/08/21 05/08/21 Range/Units 07:30 11:24 16:48 POC Glucose (mg/dL) 137 H 110 H (75-99) mg/dL Troponin I 0.042 H* (0.000-0.034) ng/mL
[2021-05-10 16:27] LABS: Glucose,Whole Blood 263 mg/dL (75-99)
[2021-05-10] MEDS: amLODIPine 5 MG TAB PO SCH (21:11)
[2021-05-10] MEDS: AMMONIUM LACTATE 12% LOTION 225 GM BTL TOPICAL SCH (21:57)
[2021-05-11] MEDS: SODIUM CHLORIDE 0.9% 1,000 ML IV SCH (03:39)
[2021-05-11] MEDS: LEVOTHYROXINE 100 MCG TAB PO SCH (06:17)
[2021-05-11] MEDS: APIXABAN 5 MG TAB PO SCH ×2 (06:35→08:01)
[2021-05-11] MEDS: METOPROLOL TARTRATE 25 MG TAB PO SCH ×2 (08:00→21:51)
[2021-05-11] MEDS: LOSARTAN 25 MG TAB PO SCH (08:00)
[2021-05-11] MEDS: FUROSEMIDE 40 MG TAB PO SCH (08:01)
[2021-05-11] MEDS: predniSONE 50 MG TAB PO SCH (08:02)
[2021-05-11] MEDS: AMMONIUM LACTATE 12% LOTION 225 GM BTL TOPICAL SCH ×2 (08:10→21:52)
[2021-05-11] MEDS: SYMBICORT 160-4.5 MCG INHALER INHALATION SCH ×2 (08:58→21:18)
--- NOTE | 2021-05-11 09:34 | P.PN ---
Subjective Progress Note Date: 05/10/21 Patient was seen for a follow-up. Patient is laying in the bed, appears to be in moderate respiratory distress. Patient breathing at 46/m. It appears patient has taken off her nasal cannula, therefore very tachypneic. Objective - Vital Signs Vital signs: Vital Signs Temp 96.2 F L 05/11/21 08:00 Pulse 75 05/11/21 08:00 Resp 44 H 05/11/21 08:00 BP 179/94 05/11/21 08:00 Pulse Ox 90 L 05/11/21 08:00 Intake & Output 05/10/21 05/11/21 05/11/21 18:59 06:59 18:59 Output Total 75 Balance -75 Output: Urine 75 Other: Voiding Method External Catheter External Catheter # Voids 2 - Exam Patient appears slightly delirious, tachypneic, breathing at 46/m. Patient states [place] Patient is coughing, appears very congested. Patient is disoriented. Patient's muscle strength is equal bilaterally. Face is symmetric. - Labs CBC & Chem 7: 05/09/21 08:08 05/09/21 08:08 Labs: Abnormal Lab Results - Last 24 Hours (Table) 05/10/21 05/10/21 Range/Units 11:47 16:25 POC Glucose (mg/dL) 118 H 263 H (75-99) mg/dL Assessment and Plan Assessment: * Altered mental status, likely due to delirium from hypoxemia, and other reasons mentioned as below. * Probable underlying dementia. * COPD exacerbation, with history of severe COPD * Chest x-ray revealed near complete opacification of the right lung. Correlate for atelectasis and effusion. * Hypertension * History of CHF * Paroxysmal atrial fibrillation * Peripheral edema, venous stasis. * Macrocytosis, rule out B12/folate deficiency. Plan: * Patient has delirium, likely due to multiple medical/metabolic conditions as mentioned above. * Treatment of underlying medical conditions as per IM and other specialties. * B12 712, folate > 20, TSH is normal. * Patient has atrial fibrillation, continue Eliquis for stroke prevention. * No other neurological workup indicated at this time.
[2021-05-11] MEDS ORDERED: RX INFO: IV CONTRAST WAS GIVEN 1 EACH MISC MISCELLANE PRN (11:51)
[2021-05-11 12:46] LABS: African American GFR (CKD) >90 (>60 ml/min/1.73 sqM); Blood Urea Nitrogen 39 mg/dL (7-17); Non-African American GFR(CKD) 80 (>60 ml/min/1.73 sqM)
--- NOTE | 2021-05-11 12:58 | P.PN ---
Subjective Progress Note Date: 05/10/21 HISTORY OF PRESENT ILLNESS: This is an 80-year-old female with a previous medical history signi ficant for hypertension and hypertensive cardiovascular disease, hyperlipidemia, chronic atrial fibrillation/flutter, chronic COPD, chronic diastolic heart failure, severe pulmonary hypertension, ulcerative sleep apnea with obesity hypoventilation syndrome, chronic stasis dermatitis with cellulitis of both lower extremities, [facility] on 05/02/2021 after she was admitted for what appears to be a urinary tract infection as well as bilateral lower extremity cellulitis she was sent to [facility] for physical therapy, she also was diagnosed with significant paralysis of the right hemidiaphragm that's part of her dyspnea that she has, patient while she was at the [facility] developed to have a significant confusion with the staff not able to keep her oxygenation higher than 85% on nonrebreather, they were directed to send the patient to the emergency department via EMS patient was seen and evaluated in the emergency department and she was found to be hypoxemic and tachypneic as well her chest x-ray did show poorly vascular congestion, urinalysis did not show evidence of any acute urinary tract infection, patient was placed on 6 L is a cannula, she was found to have an elevated troponin and she was admitted to the hospital and she was seen in consultation by cardiology as well as pulmonary medicine and in regards to her confusion neurology consultation was obtained for metabolic encephalopathy. 05/09: Patient is sitting up in bed that appears to be somewhat confused, opens her eyes in response to verbal supply she is currently on 6 L nasal cannula, she was seen earlier by cardiology, she is placed on Lasix, she is placed back on her medication including Eliquis 5 mg orally twice every day as well as metoprolol 25 mg orally twice every day, Lasix 40 mg orally once every day. 05/10: Patient is sitting up in bed she appears to be quite short of breath, she continues to have a significant opacification of the right lung, she is currently on 6 L nasal cannula, she was seen by pulmonary medicine she is possibly scheduled for thoracentesis of the right lung and possible bronchoscopy for possible mucous plugging, she continues to be doing poorly REVIEW OF SYSTEMS: Constitutional: No documented fever, no chills, no night sweats. No weight change. Positive for weakness, positive for fatigue and lethargy. daytime sleepiness. HEENT: No headache. No blurred vision or double vision, no loss of vision. No loss of Hearing, no ringing in the ears, no dizziness. No nasal drainage or congestion. No epistaxis. No sore throat. Lungs: Positive for shortness of breath, no cough, no sputum production. No wheezing. Reports dyspnea with activity. Cardiovascular: No chest pain, positive for lower extremity edema. No palpitations. No paroxysmal nocturnal dyspnea. positive for orthopnea. No lightheadedness or dizziness. No syncopal episodes. Abdominal: Reports abdominal pain. No nausea, vomiting. No diarrhea. No constipation. No bloody or tarry stools reports loss of appetite. Genitourinary: No dysuria, increased frequency, urgency. No urinary retention. Musculoskeletal: no myalgias. positive for muscle weakness, positive for gait dysfunction, no frequent falls. No back pain. No neck pain. Integumentary: No wounds, no lesions. rash or pruritus. No unusual bruising. No change in hair or nails. Neurologic: No aphasia. No facial droop. positive for change in mentation. No head injury. No headache. No paralysis. No paresthesia. Psychiatric: No depression. No anxiety. No mood swings. Endocrine: No abnormal blood sugars. No weight change. PHYSICAL EXAMINATION: General: 80-year-old female laying down in bed appears to be in mild respiratory HEENT: Head is atraumatic, normocephalic, pupils were equal round reactive to light and recommendation, extraocular muscle movement were intact, sclera nonicteric, conjunctivae were pale, mucous membranes of the mouth are somewhat dry. Neck: Supple, no JVP, normal carotid upstroke bilaterally, no lymphadenopathy. Chest: Decreased breath sounds at the bases, few rhonchi, mild expiratory wheezes, no chest wall tenderness, mild intercostal retractions. Heart: First heart sound is normal, second heart sounds normal, there is systolic ejection murmur 2/6 located in the left sternal border. Abdomen: Soft, nontender, nondistended, positive bowel sounds, there is no hep atosplenomegaly. Extremities: There is +2 edema, no calf tenderness, bilateral stasis dermatitis, chronic skin changes, dorsalis pedis +2 bilaterally. Neurologic examination: Patient is drowsy opens her eyes in response to verbal supply, cranial nerves II-12 appear grossly intact, muscle power were 3 out of 5 in upper extremities and 3out of 5 in bilateral lower extremities, deep tendon reflexes normal bilaterally. ASSESSMENT AND PLAN: 1. Acute hypoxemic respiratory failure secondary to acute on chronic diastolic heart failure and acute COPD exacerbation with paralysis of the right bisi diaphragm. Continue patient on Lasix 40 mg once every day, continue metoprolol 25 mg orally twice every day, continue patient on oxygen support, wean her oxygen to keep her saturation between 91-93%, pulmonary consultation as well as cardiology consultation. Continue the patient on Vish was 5 mg orally twice every day. 2. Metabolic encephalopathy likely related to CO2 narcosis along with hypox emia. Try to wean the patient oxygen down to keep her saturation between 91- 93%. Neurology consultation appreciated. 3. History of atrial flutter/fibrillation. Continue patient on metoprolol 25 m illigrams twice every day, Eliquis 5 mg orally twice every day. 4. Hypertension and hypertensive cardio vascular disease. Continue patient on losartan 25 mg once every day, metoprolol 25 mg orally twice every day, amlodipine 5 minute gram at the time. 5. Hypothyroidism. Continue patient on levothyroxin 100 g orally once every day. 6. Severe pulmonary hypertension. Continue patient on Lasix 40 mg once every day as well as metoprolol 25 mg twice every day and losartan 25 minute gram or ally once every day. 7. Vascular dementia. Patient can be started on small dose of Namenda as an outpatient. 8. History of recent UTI. Resolved. 9. Chronic stasis dermatitis of both lower extremity is with a prior history of bilateral lower extremity cellulitis. Stable. 10. History of COPD. Continue oxygen support, continue Symbicort 160/4.5 g 2 puffs inhalation twice every day, prednisone 50 mg orally once every day. 11. DVT prophylaxis. Continue patient on Eliquis 5 mg orally twice every day per 12. GI prophylaxis. Pepcid 20 mg orally once every day. 13.Physical therapy evaluation. 14. Complete opacification of the right lung likely pleural effusion as well as mucus plugging attempt for thoracentesis will be done by interventional radiology, if no improvement patient will need to have a bronchoscopy and possible BAL. 15. Plan is for the patient to go back to [facility]. Objective - Vital Signs Vital signs: Vital Signs Temp 98.0 F 05/10/21 14:32 Pulse 71 05/10/21 14:32 Resp 17 05/10/21 14:32 BP 160/74 05/10/21 14:32 Pulse Ox 90 L 05/10/21 14:32 Intake & Output 05/09/21 05/10/21 05/10/21 18:59 06:59 18:59 Intake Total 500 Output Total 900 500 Balance -400 -500 Intake: Oral 500 Output: Urine 900 500 Other: # Voids 1 - Labs CBC & Chem 7: 05/09/21 08:08 05/11/21 12:17 Labs: Abnormal Lab Results - Last 24 Hours (Table) 05/09/21 05/09/21 05/10/21 Range/Units 16:57 21:05 07:02 POC Glucose (mg/dL) 127 H 115 H 125 H (75-99) mg/dL 05/10/21 Range/Units 11:47 POC Glucose (mg/dL) 118 H (75-99) mg/dL
--- NOTE | 2021-05-11 13:02 | P.PN ---
Subjective Progress Note Date: 05/11/21 HISTORY OF PRESENT ILLNESS: This is an 80-year-old female with a previous medical history signi ficant for hypertension and hypertensive cardiovascular disease, hyperlipidemia, chronic atrial fibrillation/flutter, chronic COPD, chronic diastolic heart failure, severe pulmonary hypertension, ulcerative sleep apnea with obesity hypoventilation syndrome, chronic stasis dermatitis with cellulitis of both lower extremities, [facility] on 05/02/2021 after she was admitted for what appears to be a urinary tract infection as well as bilateral lower extremity cellulitis she was sent to [facility] for physical therapy, she also was diagnosed with significant paralysis of the right hemidiaphragm that's part of her dyspnea that she has, [facility] developed to have a significant confusion with the staff not able to keep her oxygenation higher than 85% on nonrebreather, they were directed to send the patient to the emergency department via EMS patient was seen and evaluated in the emergency department and she was found to be hypoxemic and tachypneic as well her chest x-ray did show poorly vascular congestion, urinalysis did not show evidence of any acute urinary tract infection, patient was placed on 6 L is a cannula, she was found to have an elevated troponin and she was admitted to the hospital and she was seen in consultation by cardiology as well as pulmonary medicine and in regards to her confusion neurology consultation was obtained for metabolic encephalopathy. 05/09: Patient is sitting up in bed that appears to be somewhat confused, opens her eyes in response to verbal supply she is currently on 6 L nasal cannula, she was seen earlier by cardiology, she is placed on Lasix, she is placed back on her medication including Eliquis 5 mg orally twice every day as well as metoprolol 25 mg orally twice every day, Lasix 40 mg orally once every day. 05/10: Patient is sitting up in bed she appears to be quite short of breath, she continues to have a significant opacification of the right lung, she is currently on 6 L nasal cannula, she was seen by pulmonary medicine she is possibly scheduled for thoracentesis of the right lung and possible bronchoscopy for possible mucous plugging, she continues to be doing poorly 05/11: Patient is sitting up in bed eating her breakfast, she was scheduled to go for thoracentesis however she did receive her Eliquis last night, therefore I believe this will be rescheduled for the next 24 hours, patient continues to be somewhat short of breath, continue to have very weak cough, she is not bringing up any phlegm, she appears to be generally weak, very confused, eating about 20- 30% of her meal. REVIEW OF SYSTEMS: Constitutional: No documented fever, no chills, no night sweats. No weight change. Positive for weakness, positive for fatigue and lethargy. daytime sleepiness. HEENT: No headache. No blurred vision or double vision, no loss of vision. No loss of Hearing, no ringing in the ears, no dizziness. No nasal drainage or congestion. No epistaxis. No sore throat. Lungs: Positive for shortness of breath, no cough, no sputum production. No wheezing. Reports dyspnea with activity. Cardiovascular: No chest pain, positive for lower extremity edema. No palpitations. No paroxysmal nocturnal dyspnea. positive for orthopnea. No lightheadedness or dizziness. No syncopal episodes. Abdominal: Reports abdominal pain. No nausea, vomiting. No diarrhea. No constipation. No bloody or tarry stools reports loss of appetite. Genitourinary: No dysuria, increased frequency, urgency. No urinary retention. Musculoskeletal: no myalgias. positive for muscle weakness, positive for gait dysfunction, no frequent falls. No back pain. No neck pain. Integumentary: No wounds, no lesions. rash or pruritus. No unusual bruising. No change in hair or nails. Neurologic: No aphasia. No facial droop. positive for change in mentation. No head injury. No headache. No paralysis. No paresthesia. Psychiatric: No depression. No anxiety. No mood swings. Endocrine: No abnormal blood sugars. No weight change. PHYSICAL EXAMINATION: General: 80-year-old female laying down in bed appears to be in mild respiratory HEENT: Head is atraumatic, normocephalic, pupils were equal round reactive to light and recommendation, extraocular muscle movement were intact, sclera prabhakar cteric, conjunctivae were pale, mucous membranes of the mouth are somewhat dry. Neck: Supple, no JVP, normal carotid upstroke bilaterally, no lymphadenopathy. Chest: Decreased breath sounds at the bases, few rhonchi, mild expiratory wheezes, no chest wall tenderness, mild intercostal retractions. Heart: First heart sound is normal, second heart sounds normal, there is systolic ejection murmur 2/6 located in the left sternal border. Abdomen: Soft, nontender, nondistended, positive bowel sounds, there is no hepatosplenomegaly. Extremities: There is +2 edema, no calf tenderness, bilateral stasis dermatitis, chronic skin changes, dorsalis pedis +2 bilaterally. Neurologic examination: Patient is drowsy opens her eyes in response to verbal supply, cranial nerves II-12 appear grossly intact, muscle power were 3 out of 5 in upper extremities and 3out of 5 in bilateral lower extremities, deep tendon reflexes normal bilaterally. ASSESSMENT AND PLAN: 1. Acute hypoxemic respiratory failure secondary to acute on chronic diastolic heart failure and acute COPD exacerbation with paralysis of the right hemidiaphragm. Continue patient on Lasix 40 mg once every day, continue metoprolol 25 mg orally twice every day, continue patient on oxygen support, wean her oxygen to keep her saturation between 91-93%, pulmonary consultation as well as cardiology consultation. Continue the patient on Vish was 5 mg orally twice every day. 2. Metabolic encephalopathy likely related to CO2 narcosis along with hypoxemia. Try to wean the patient oxygen down to keep her saturation between 91-93%. Neurology consultation appreciated. 3. History of atrial flutter/fibrillation. Continue patient on metoprolol 25 milligrams twice every day, Eliquis 5 mg orally twice every day. 4. Hypertension and hypertensive cardio vascular disease. Continue patient on losartan 25 mg once every day, metoprolol 25 mg orally twice every day, amlodipine 5 minute gram at the time. 5. Hypothyroidism. Continue patient on levothyroxin 100 g orally once every day. 6. Severe pulmonary hypertension. Continue patient on Lasix 40 mg once every day as well as metoprolol 25 mg twice every day and losartan 25 minute gram orally once every day. 7. Vascular dementia. Patient can be started on small dose of Namenda as an outpatient. 8. History of recent UTI. Resolved. 9. Chronic stasis dermatitis of both lower extremity is with a prior history of bilateral lower extremity cellulitis. Stable. 10. History of COPD. Continue oxygen support, continue Symbicort 160/4.5 g 2 puffs inhalation twice every day, prednisone 50 mg orally once every day. 11. DVT prophylaxis. Continue patient on Eliquis 5 mg orally twice every day per 12. GI prophylaxis. Pepcid 20 mg orally once every day. 13.Physical therapy evaluation. 14. Complete opacification of the right lung likely pleural effusion as well as mucus plugging . Patient did receive Eliquis last night and probably Thoracenthesis will be canceled. 15. Plan is for the patient to go back to [facility]. Objective - Vital Signs Vital signs: Vital Signs Temp 96.2 F L 05/11/21 08:00 Pulse 75 05/11/21 08:00 Resp 44 H 05/11/21 08:00 BP 179/94 05/11/21 08:00 Pulse Ox 90 L 05/11/21 08:00 Intake & Output 05/10/21 05/11/21 05/11/21 18:59 06:59 18:59 Output Total 75 Balance -75 Output: Urine 75 Other: Voiding Method External Catheter External Catheter # Voids 2 - Labs CBC & Chem 7: 05/09/21 08:08 05/11/21 12:17 Labs: Abnormal Lab Results - Last 24 Hours (Table) 05/10/21 05/11/21 Range/Units 16:25 12:17 BUN 39 H (7-17) mg/dL POC Glucose (mg/dL) 263 H (75-99) mg/dL
--- NOTE | 2021-05-11 18:16 | P.PN ---
Subjective Progress Note Date: 05/11/21 05/11/2021 on seeing this patient for a follow-up. This is an 80-year-old female patient known having COPD, chronic atrial fibrillation/flutter, chronic diastolic heart failure with significant pulmonary hypertension, sleep apnea on no hypertension and hyperlipidemia. The patient also had a recent hos pitalization for UTI and several episodes of the lower extremity and following that the patient was sent to [facility] for further rehabilitation. She has chronic elevation of the right hemidiaphragm which has been contributing to her chronic shortness of breath. During this current admission, the patient comes in with altered mentation and hypoxemia. There was a concern for the development of a right-sided pleural effusion. For that reason, ultrasound of the chest was done and the amount of fluid was essentially small. Based on that, I repeated a CAT scan of the chest and it was essentially a right lower lobe atelectasis addition to small right-sided pleural effusion. She has a congested cough. The cough is weak. Unable to bring up much of sputum and her oral intake is quite diminished at this point in time. The patient has no fever. No chills. The pro calcitonin level has been low at 0.03 from 05/09/2021. Renal function is stable. UA was negative. COVID 19 testing was negative. The patient is currently receiving no bronchodilators. She has a maternal Symbicort. She is also maintained on prednisone burst taper. She is on long-term and to coagulation with Eliquis 5 mg by mouth twice a day. She denies any fluids at KVO at 20 mL an hour. Objective - Vital Signs Vital signs: Vital Signs Temp 98.3 F 05/11/21 14:00 Pulse 76 05/11/21 14:00 Resp 22 05/11/21 14:00 BP 175/85 05/11/21 14:00 Pulse Ox 94 L 05/11/21 14:00 Intake & Output 05/10/21 05/11/21 05/11/21 18:59 06:59 18:59 Output Total 75 Balance -75 Output: Urine 75 Other: Voiding Method External Catheter External Catheter # Voids 2 - Exam General: 80-year-old female laying down in bed appears to be in mild respiratory , the patient is currently on 10 L of oxygen by nasal cannula. The patient is afebrile. Breathing is nonlabored. HEENT: Head is atraumatic, normocephalic, pupils were equal round reactive to light and recommendation, extraocular muscle movement were intact, sclera nonicteric, conjunctivae were pale, mucous membranes of the mouth are somewhat dry. Neck: Supple, no JVP, normal carotid upstroke bilaterally, no lymphadenopathy. Chest: Decreased breath sounds at the bases, few rhonchi, mild expiratory wheezes, no chest wall tenderness, mild intercostal retractions. Heart: First heart sound is normal, second heart sounds normal, there is systolic ejection murmur 2/6 located in the left sternal border. Abdomen: Soft, nontender, nondistended, positive bowel sounds, there is no hepatosplenomegaly. Extremities: There is +2 edema, no calf tenderness, bilateral stasis dermatitis, chronic skin changes, dorsalis pedis +2 bilaterally. Neurologic examination: Patient is drowsy opens her eyes in response to verbal supply, cranial nerves II-12 appear grossly intact, muscle power were 3 out of 5 in upper extremities and 3out of 5 in bilateral lower extremities, deep tendon reflexes normal bilaterally. - Labs CBC & Chem 7: 05/09/21 08:08 05/11/21 12:17 Labs: Abnormal Lab Results - Last 24 Hours (Table) 05/11/21 Range/Units 12:17 BUN 39 H (7-17) mg/dL Assessment and Plan Plan: 1 right lower lobe atelectasis along with small right-sided pleural effusion. The greater mucous plug/aspiration. The pro calcitonin level has been low. She would benefit from aggressive pulmonary toileting and deep breathing and cough and. She would also benefit from bronchodilators. 2 acute hypoxic respiratory failure currently on 10 L of oxygen by nasal cannula 3 encephalopathy, likely metabolic 4 history of chronic A. fib fibrillation/flutter maintained on long-term medical condition with Eliquis 5 hypertension 6 hypothyroidism 7 vascular dementia 8 recent history of UTI, recovered 9 COPD 10 severe pulmonary hypertension Plan Aggressive pulmonary toileting along with the breathing and chest PT Noted for thoracentesis as a right-sided pleural effusion is small Provide the patient DuoNeb nebulized treatments around the clock Continue the prednisone burst taper Repeat chest x-ray with next 24-48 hours Aspiration precautions We'll continue to follow make further recommendations based on her progress
[2021-05-11] MEDS: IPRATROPIUM-ALBUTEROL 3 ML NEB INHALATION SCH (21:19)
[2021-05-11] MEDS: amLODIPine 5 MG TAB PO SCH (21:51)
--- NOTE | 2021-05-11 22:51 | CT ---
EXAMINATION TYPE: CT chest w con DATE OF EXAM: 05/11/2021 COMPARISON: 10/05/2019 HISTORY: History of mass. Very short of breath. CT DLP: 575.5 mGycm Automated exposure control for dose reduction was used. TECHNIQUE: CT scan of the chest is performed with IV Contrast, patient injected with 80 mL of Isovue 300 FINDINGS: Suboptimal evaluation due to motion. There are patchy and groundglass opacities right upper and lower lobes. There is right lower lobe ate lectasis. There is patchy airspace disease and atelectasis in the left upper and lower lobes. There is moderate right and small left pleural effusions. No pneumothorax. No large lung mass seen. Difficult to exclude any small nodule due to motion. Suboptimal evaluation of the mediastinum due to motion and streak, no significantly enlarged lymph no rocael seen. There is mild cardiomegaly. No pericardial effusion. No aortic aneurysm seen. Opacification of the pu lmonary trunk is suboptimal for pulmonary embolism evaluation and therefore study is considered nondi agnostic for pulmonary arterial embolism. Coronary arterial calcifications are noted Evaluation of tracheobronchial is limited due to motion.. Osseous structures are extremely osteopenic. Vertebral body heights are maintained. Thoracic kyphosis is exaggerated. Multilevel narrowing of the intervertebral spaces, bony spurring and endplate degene rative changes in addition disc degenerative changes are seen. No motion is difficult to exclude a no ndisplaced fracture. No acutely displaced fracture are seen. Upper abdomen shows prior gastric surgery similar to prior study otherwise attenuation is limited. IMPRESSION: 1. Extremely limited evaluation due to motion. 2. Findings concerning for multifocal pneumonia with moderate right and small left pleural effusion. 3. Study is considered nondiagnostic for pulmonary arterial embolism due to bolus timing.
[2021-05-12 05:34] LABS: Glucose,Whole Blood 121 mg/dL (75-99)
[2021-05-12 05:34] LABS: ABG Oxygen Saturation 84.6 % (94-97); ABG PH 7.36 (7.35-7.45); ABG TCO2 58 mmol/L (19-24); Allen Test Performed? Yes
[2021-05-12 05:38] LABS: ABG HCO3 55 mmol/L (21-25); ABG PCO2 97 mmHg (35-45); ABG PO2 52 mmHg (83-108)
[2021-05-12] MEDS ORDERED: MORPHINE SULFATE 2 MG/ML SYRINGE IVP PRN ×2 (05:41→21:17)
[2021-05-12] MEDS: SODIUM CHLORIDE 0.9% 1,000 ML IV SCH (06:53)
[2021-05-12] MEDS: IPRATROPIUM-ALBUTEROL 3 ML NEB INHALATION SCH ×4 (08:46→21:00)
[2021-05-12] MEDS: SYMBICORT 160-4.5 MCG INHALER INHALATION SCH ×3 (08:47→21:15)
[2021-05-12] MEDS: AMMONIUM LACTATE 12% LOTION 225 GM BTL TOPICAL SCH ×2 (09:13→23:49)
[2021-05-12 09:45] LABS: HGB 13.2 g/dL (12.0-15.0); MCH 29.8 pg (27.0-32.0); MCHC 29.3 g/dL (32.0-37.0); MCV 101.6 fL (80.0-97.0); Mean Platelet Volume 10.1 fL (9.5-12.2); Platelet Count 203 X 10*3/uL (140-440); RBC 4.43 X 10*6/uL (4.10-5.20); RDW 14.1 % (11.5-14.5); WBC 15.75 X 10*3/uL (4.50-10.00)
[2021-05-12 09:46] LABS: African American GFR (CKD) 99.1 (60.0-200.0); Albumin 3.8 g/dL (3.8-4.9); Anion Gap 11.5 mmol/L (10.00-18.00); BUN/Creat Ratio 45.5 Ratio (12.00-20.00); Blood Urea Nitrogen 27.3 mg/dL (9.0-27.0); Calcium 8.8 mg/dL (8.7-10.3); Carbon Dioxide 43.5 mmol/L (20.0-27.5); Globulin 1.9 g/dL (1.6-3.3); Non-African American GFR(CKD) 85.5 (60.0-200.0); Potassium 4.2 mmol/L (3.5-5.5); Total Bilirubin 0.9 mg/dL (0.30-1.20); Total Protein 5.7 g/dL (6.2-8.2)
[2021-05-12 11:05] LABS: Basophils # (A) 0.04 X 10*3/uL (0.00-0.10); Basophils % (A) 0.3 %; Eosinophils # (A) 0 X 10*3/uL (0.04-0.35); Eosinophils % (A) 0 %; Lymphocytes # (A) 0.71 X 10*3/uL (0.90-5.00); Lymphocytes % (A) 4.5 %; Monocytes # (A) 1.83 X 10*3/uL (0.20-1.00); Monocytes % (A) 11.6 %; Neutrophils % (A) 81.9 %
[2021-05-12] MEDS: LEVOTHYROXINE 100 MCG TAB PO SCH (12:09)
[2021-05-12] MEDS: APIXABAN 5 MG TAB PO SCH ×2 (12:09→23:49)
[2021-05-12] MEDS: LOSARTAN 25 MG TAB PO SCH (12:10)
[2021-05-12] MEDS: METOPROLOL TARTRATE 25 MG TAB PO SCH ×2 (12:10→23:49)
[2021-05-12] MEDS: predniSONE 50 MG TAB PO SCH (12:10)
--- NOTE | 2021-05-12 12:11 | XR ---
EXAMINATION TYPE: XR chest 1V portable DATE OF EXAM: 05/12/2021 HISTORY: Shortness of breath. COMPARISON: 05/10/2021 TECHNIQUE: Single view of the chest is submitted. FINDINGS: Demonstrated are scattered senescent parenchymal change. Significantly improved aeration throughout the right lung with areas of nodular infiltrate persisting . Increased density left lower lobe which may reflect a combination of infiltrate, atelectasis and ef fusion. The heart is stable. Hilar and mediastinal structures are within normal limits. Degenerative changes are seen of the dorsal spine. IMPRESSION: 1. Significantly improved aeration throughout the right lung with areas of nodular infiltrate persis ting. Increased density left lower lobe which may reflect a combination of infiltrate, atelectasis an d effusion.
[2021-05-12] MEDS: FUROSEMIDE 40 MG TAB PO SCH (12:12)
[2021-05-12] MEDS ORDERED: FUROSEMIDE 10 MG/ML 4 ML VIAL IV SCH (12:15)
[2021-05-12] MEDS: methylPREDNISolone SOD SUCCI 40 MG/ML 1 ML VIAL IV SCH ×3 (12:31→23:53)
[2021-05-12] MEDS: DEXTROSE 5% IN WATER 1,000 ML IV SCH (12:32)
[2021-05-12] MEDS: PIPERACILLIN-TAZOBACTAM 3.375 GM in SODIUM CHLORIDE 0.9% 100 ML IVPB SCH ×2 (12:40→20:17)
--- NOTE | 2021-05-12 14:52 | P.PN ---
Subjective Progress Note Date: 05/12/21 05/11/2021 on seeing this patient for a follow-up. This is an 80-year-old female patient known having COPD, chronic atrial fibrillation/flutter, chronic diastolic heart failure with significant pulmonary hypertension, sleep apnea on no hypertension and hyperlipidemia. The patient also had a recent hos pitalization for UTI and several episodes of the lower extremity and following that the patient was sent to [facility] for further rehabilitation. She has chronic elevation of the right hemidiaphragm which has been contributing to her chronic shortness of breath. During this current admission, the patient comes in with altered mentation and hypoxemia. There was a concern for the development of a right-sided pleural effusion. For that reason, ultrasound of the chest was done and the amount of fluid was essentially small. Based on that, I repeated a CAT scan of the chest and it was essentially a right lower lobe atelectasis addition to small right-sided pleural effusion. She has a congested cough. The cough is weak. Unable to bring up much of sputum and her oral intake is quite diminished at this point in time. The patient has no fever. No chills. The pro calcitonin level has been low at 0.03 from 05/09/2021. Renal function is stable. UA was negative. COVID 19 testing was negative. The patient is currently receiving no bronchodilators. She has a maternal Symbicort. She is also maintained on prednisone burst taper. She is on long-term and to coagulation with Eliquis 5 mg by mouth twice a day. She denies any fluids at KVO at 20 mL an hour. 05/12/2021, seeing this patient for a follow-up. The patient is a debilitated 80-year-old female with advanced COPD who was having issues with right lung collapse yesterday. There was a concern of an underlying pleural effusion. Ultrasound of the chest shows minimal pleural effusion and a CAT scan of the chest showed extensive right lung atelectasis and a small right-sided pleural effusion. Based on that, the patient was offered aggressive pulmonary toileting. She was placed on BiPAP and she was also given bronchodilators and steroids. She was also started on antibiotics. A follow-up chest x-ray was done today shows significant improvement in aeration of the right lung. Nevertheless, there is some atelectatic changes and volume loss in the left. I suspect the patient is having mucous plugging contributing to her recurrent and migrating episodes of pulmonary atelectasis. The patient is known to have COPD. She has a patient with chronic atrial fibrillation/flutter. She has diastolic heart failure with significant pulmonary hypertension. She has also systemic hypertension and hyperlipidemia. On today's evaluation, she has a blood gas that showed a pH of 7.36 with a pCO2 of 97 and pO2 of 50 to and this was done while on a BiPAP. She has also blood work that showed a sodium level of 147 and a bicarb of 43 with a BUN of 27 and a creatinine of 0.6. The patient was supposed 15.7 with a hemoglobin of 13.2. Objective - Vital Signs Vital signs: Vital Signs Temp 97.5 F L 05/12/21 07:45 Pulse 72 05/12/21 12:16 Resp 35 H 05/12/21 08:21 BP 162/90 05/12/21 07:45 Pulse Ox 88 L 05/12/21 07:45 Intake & Output 05/11/21 05/12/21 05/12/21 18:59 06:59 18:59 Output Total 425 Balance -425 Output: Urine 425 Other: Voiding Method External Catheter External Catheter External Catheter # Voids 650 # Bowel Movements 0 - Exam General: 80-year-old female laying down in bed appears to be in mild respiratory , the patient is currently on BiPAP for respiratory support. She is arousable. No signs of any CO2 narcosis. HEENT: Head is atraumatic, normocephalic, pupils were equal round reactive to light and recommendation, extraocular muscle movement were intact, sclera nonicteric, conjunctivae were pale, mucous membranes of the mouth are somewhat dry. Neck: Supple, no JVP, normal carotid upstroke bilaterally, no lymphadenopathy. Chest: Decreased breath sounds at the bases, few rhonchi, mild expiratory wheezes, no chest wall tenderness, mild intercostal retractions. Breath sounds are improved on the right, diminished on the left Heart: First heart sound is normal, second heart sounds normal, there is systolic ejection murmur 2/6 located in the left sternal border. Abdomen: Soft, nontender, nondistended, positive bowel sounds, there is no hepatosplenomegaly. Extremities: There is +2 edema, no calf tenderness, bilateral stasis dermatitis, chronic skin changes, dorsalis pedis +2 bilaterally. Neurologic examination: Patient is drowsy opens her eyes in response to verbal supply, cranial nerves II-12 appear grossly intact, muscle power were 3 out of 5 in upper extremities and 3out of 5 in bilateral lower extremities, deep tendon reflexes normal bilaterally. - Labs CBC & Chem 7: 05/12/21 05:27 05/12/21 05:27 Labs: Abnormal Lab Results - Last 24 Hours (Table) 05/10/21 05/12/21 05/12/21 Range/Units 07:01 05:23 05:27 WBC 15.75 H (4.50-10.00) X 10*3/uL MCV 101.6 H (80.0-97.0) fL MCHC 29.3 L (32.0-37.0) g/dL Absolute Nucleated RBC 0.02 H (0.00-0.00) X 10*3/uL Immature Gran # 0.27 H (0.00-0.04) X 10*3/uL Neutrophils # 12.90 H (1.80-7.70) X 10*3/uL Lymphocytes # 0.71 L (0.90-5.00) X 10*3/uL Monocytes # 1.83 H (0.20-1.00) X 10*3/uL Eosinophils # 0 L (0.04-0.35) X 10*3/uL NRBC/100 WBC Diff 0.1 H (0.0-0.0) /100 WBCS ABG pCO2 (35-45) mmHg ABG pO2 (83-108) mmHg ABG HCO3 (21-25) mmol/L ABG Total CO2 (19-24) mmol/L ABG O2 Saturation (94-97) % Sodium (135-145) mmol/L Chloride (96-109) mmol/L Carbon Dioxide (20.0-27.5) mmol/L BUN (9.0-27.0) mg/dL BUN/Creatinine Ratio (12.00-20.00) Ratio Glucose (70-110) mg/dL POC Glucose (mg/dL) 121 H (75-99) mg/dL Total Protein (6.2-8.2) g/dL Methylmalonic Acid 0.49 H (<0.40) umol/L 05/12/21 05/12/21 Range/Units 05:27 05:30 WBC (4.50-10.00) X 10*3/uL MCV (80.0-97.0) fL MCHC (32.0-37.0) g/dL Absolute Nucleated RBC (0.00-0.00) X 10*3/uL Immature Gran # (0.00-0.04) X 10*3/uL Neutrophils # (1.80-7.70) X 10*3/uL Lymphocytes # (0.90-5.00) X 10*3/uL Monocytes # (0.20-1.00) X 10*3/uL Eosinophils # (0.04-0.35) X 10*3/uL NRBC/100 WBC Diff (0.0-0.0) /100 WBCS ABG pCO2 97 H* (35-45) mmHg ABG pO2 52 L* (83-108) mmHg ABG HCO3 55 H* (21-25) mmol/L ABG Total CO2 58 H (19-24) mmol/L ABG O2 Saturation 84.6 L (94-97) % Sodium 147 H (135-145) mmol/L Chloride 92 L (96-109) mmol/L Carbon Dioxide 43.5 H* (20.0-27.5) mmol/L BUN 27.3 H (9.0-27.0) mg/dL BUN/Creatinine Ratio 45.50 H (12.00-20.00) Ratio Glucose 115 H (70-110) mg/dL POC Glucose (mg/dL) (75-99) mg/dL Total Protein 5.7 L (6.2-8.2) g/dL Methylmalonic Acid (<0.40) umol/L Assessment and Plan Plan: 1 right lower lobe atelectasis along with small right-sided pleural effusion. The greater mucous plug/aspiration. The pro calcitonin level has been low. She would benefit from aggressive pulmonary toileting and deep breathing and cough and. She would also benefit from bronchodilators. Noted the patient was off of bronchodilators and steroids and antibiotics and BiPAP and on today's evaluation the chest x-ray shows the expansion of the right lung and volume loss and pa rtial collapse of the left lung. The patient accordingly was kept on a BiPAP. The patient was given aggressive pulmonary toileting. The blood gas was noted. She is currently on bronchodilators, steroids and antibiotics and IV Zosyn was also started. 2 acute hypoxic respiratory failure in addition to a component of chronic hypercapnic the story failure 3 encephalopathy, likely metabolic 4 history of chronic A. fib fibrillation/flutter maintained on long-term medical condition with Eliquis 5 hypertension 6 hypothyroidism 7 vascular dementia 8 recent history of UTI, recovered 9 COPD 10 severe pulmonary hypertension 11 hyperchloremic hypernatremia Plan Continue Aggressive pulmonary toileting along with the breathing and chest PT No need for thoracentesis Provide the patient DuoNeb nebulized treatments around the clock Continued IV Solu Medrol Continued IV Zosyn The patient's hypernatremia and the patient will be started on D5 water at the rate of 50 mL an hour The patient developed significant metabolic alkalosis. We'll give the patient Diamox to 50 mg IV every 12 hours 2 No need for IV Lasix at this point in time Repeat chest x-ray with next 24-48 hours Aspiration precautions We'll continue to follow make further recommendations based on her progress
--- NOTE | 2021-05-12 17:54 | PN ---
PROGRESS NOTE I am covering for Dr. Lamar. This 80-year-old woman admitted with multiple medical issues had right lower lobe pneumonia with effusion. The patient also had acute hypoxic respiratory failure patient. The patient is confused and the patient is on BiPAP at this time. Dr. Wynn is following the patient. Broad-spectrum IV antibiotics initiated. No chest pain. No palpitations. No fever. PAST MEDICAL HISTORY: Reviewed. REVIEW OF SYMPTOMS: Could not be taken. CURRENT MEDICATIONS: Reviewed and include: Diamox, DuoNeb, Norvasc, Eliquis, Symbicort, and other doses of medications reviewed. PHYSICAL EXAMINATION: Patient is stuporous. Pulse is 63, blood pressure is 160/90, respiration 22, temperature 97.4, pulse ox 88% on BiPAP. BIPAP settings noted. HEENT: Conjunctivae normal. Neck: No JVD. Cardiovascular: S1, S2. Respiration: Breath sounds diminished in the bases. Scattered rhonchi and crackles. Abdomen: Soft, nontender. Legs are no edema. Nervous system: No focal deficits. LAB STUDIES: WBC 15.7, sodium is 147, potassium 4.2, ABGs noted, pCO2 is 97. ASSESSMENT: 1. Acute right lower lobe pneumonia with acute chronic obstructive pulmonary disease, acute exacerbation. 2. Congestive heart failure acute exacerbation. 3. Acute on chronic diastolic dysfunction, acute hypoxic hypercarbic respiratory failure on BiPAP. 4. Change in mental status, metabolic encephalopathy secondary to CO2 narcosis. 5. History of atrial flutter/fibrillation. 6. Hypertension. 7. Hypothyroidism. 8. Severe pulmonary hypertension. 9. Vascular dementia. 10.History of recent urinary tract infection. 11.Chronic stasis dermatitis. 12.Chronic obstructive pulmonary disease. 13.Deep vein thrombosis prophylaxis and gastrointestinal prophylaxis. 14.Hypernatremia. 15.Increased WBC. 16.Increased MCV. 17.FULL CODE. 18.Obesity with body mass index 31.8. RECOMMENDATIONS AND DISCUSSION: This 80-year-old woman who presented with multiple complex medical issues, we will monitor the patient closely. We will continue the current medications, management and symptomatic treatment. Repeat labs. Continue the steroids. Continue the antibiotics. See orders for details. Continue the BiPAP. Guarded prognosis. Further recommendations to follow. MMODL / IJN: [id number] /
[2021-05-12] MEDS ORDERED: LORazepam 2 MG/ML INJ IV PRN (23:00)
--- NOTE | 2021-05-12 23:45 | P.PN ---
Subjective Progress Note Date: 05/12/21 Patient was seen for a follow-up. Patient is laying in the bed, appears to be in moderate respiratory distress. Patient is on BiPAP. Per nurse report, patient answers by head nodding. She has some word salad at times. Patient moves her arms and legs well. Per nurse patient is alert and oriented 1. Detailed testing deferred because of her respiratory distress. Objective - Vital Signs Vital signs: Vital Signs Temp 97.3 F L 05/12/21 19:45 Pulse 81 05/12/21 21:00 Resp 28 H 05/12/21 20:30 BP 149/85 05/12/21 19:45 Pulse Ox 95 05/12/21 19:45 Intake & Output 05/12/21 05/12/21 05/13/21 06:59 18:59 06:59 Output Total 425 1350 500 Balance -425 -1350 -500 Output: Urine 425 1350 500 Other: Voiding Method External Catheter External Catheter External Catheter # Bowel Movements 0 0 - Labs CBC & Chem 7: 05/12/21 05:27 05/12/21 05:27 Labs: Abnormal Lab Results - Last 24 Hours (Table) 05/10/21 05/12/21 05/12/21 Range/Units 07:01 05:23 05:27 WBC 15.75 H (4.50-10.00) X 10*3/uL MCV 101.6 H (80.0-97.0) fL MCHC 29.3 L (32.0-37.0) g/dL Absolute Nucleated RBC 0.02 H (0.00-0.00) X 10*3/uL Immature Gran # 0.27 H (0.00-0.04) X 10*3/uL Neutrophils # 12.90 H (1.80-7.70) X 10*3/uL Lymphocytes # 0.71 L (0.90-5.00) X 10*3/uL Monocytes # 1.83 H (0.20-1.00) X 10*3/uL Eosinophils # 0 L (0.04-0.35) X 10*3/uL NRBC/100 WBC Diff 0.1 H (0.0-0.0) /100 WBCS ABG pCO2 (35-45) mmHg ABG pO2 (83-108) mmHg ABG HCO3 (21-25) mmol/L ABG Total CO2 (19-24) mmol/L ABG O2 Saturation (94-97) % Sodium (135-145) mmol/L Chloride (96-109) mmol/L Carbon Dioxide (20.0-27.5) mmol/L BUN (9.0-27.0) mg/dL BUN/Creatinine Ratio (12.00-20.00) Ratio Glucose (70-110) mg/dL POC Glucose (mg/dL) 121 H (75-99) mg/dL Total Protein (6.2-8.2) g/dL Methylmalonic Acid 0.49 H (<0.40) umol/L 05/12/21 05/12/21 Range/Units 05:27 05:30 WBC (4.50-10.00) X 10*3/uL MCV (80.0-97.0) fL MCHC (32.0-37.0) g/dL Absolute Nucleated RBC (0.00-0.00) X 10*3/uL Immature Gran # (0.00-0.04) X 10*3/uL Neutrophils # (1.80-7.70) X 10*3/uL Lymphocytes # (0.90-5.00) X 10*3/uL Monocytes # (0.20-1.00) X 10*3/uL Eosinophils # (0.04-0.35) X 10*3/uL NRBC/100 WBC Diff (0.0-0.0) /100 WBCS ABG pCO2 97 H* (35-45) mmHg ABG pO2 52 L* (83-108) mmHg ABG HCO3 55 H* (21-25) mmol/L ABG Total CO2 58 H (19-24) mmol/L ABG O2 Saturation 84.6 L (94-97) % Sodium 147 H (135-145) mmol/L Chloride 92 L (96-109) mmol/L Carbon Dioxide 43.5 H* (20.0-27.5) mmol/L BUN 27.3 H (9.0-27.0) mg/dL BUN/Creatinine Ratio 45.50 H (12.00-20.00) Ratio Glucose 115 H (70-110) mg/dL POC Glucose (mg/dL) (75-99) mg/dL Total Protein 5.7 L (6.2-8.2) g/dL Methylmalonic Acid (<0.40) umol/L Assessment and Plan Assessment: * Altered mental status, likely due to delirium from hypoxemia, and other reasons mentioned as below. * Probable underlying dementia. * COPD exacerbation, with history of severe COPD * Chest x-ray revealed near complete opacification of the right lung. Correlate for atelectasis and effusion. * Hypertension * History of CHF * Paroxysmal atrial fibrillation * Peripheral edema, venous stasis. * Macrocytosis, rule out B12/folate deficiency. Plan: * Patient has delirium, likely due to multiple medical/metabolic conditions as mentioned above. * CT of the chest showed findings concerning for multifocal pneumonia with moderate right and small left pleural effusion. * Patient also has significant underlying dementia. * Treatment of underlying medical conditions as per IM and other specialties. * B12 712, folate > 20, TSH is normal. * Patient has atrial fibrillation, continue Eliquis for stroke prevention. * No other neurological workup indicated at this time. Neurology will sign off. Please reconsult neurology if any other concerns.
[2021-05-12] MEDS: amLODIPine 5 MG TAB PO SCH (23:49)
[2021-05-13] MEDS: PIPERACILLIN-TAZOBACTAM 3.375 GM in SODIUM CHLORIDE 0.9% 100 ML IVPB SCH ×2 (03:50→13:31)
[2021-05-13] MEDS: methylPREDNISolone SOD SUCCI 40 MG/ML 1 ML VIAL IV SCH ×2 (05:15→13:32)
--- NOTE | 2021-05-13 07:15 | XR ---
EXAMINATION TYPE: XR chest 1V DATE OF EXAM: 05/13/2021 6:55 AM COMPARISON:Chest radiograph from one day prior. CLINICAL INDICATION:Female, 80 years old with history of Atelectasis; TECHNIQUE: Frontal view of the chest. FINDINGS: Lungs/Pleura: Left pleural effusion with associated subsegmental atelectasis. No evidence of pneumoth orax. Right lung is grossly unremarkable. Pulmonary vascularity: Unremarkable. Heart/mediastinum: Cardiomediastinal silhouette is unremarkable. Atherosclerotic calcifications are seen in the aorta. Musculoskeletal: No acute osseous pathology. IMPRESSION: Similar moderate left pleural effusion with associated subsegmental atelectasis. Superimposed airspac e disease not entirely excluded.
[2021-05-13] MEDS: LEVOTHYROXINE 100 MCG TAB PO SCH (07:45)
[2021-05-13] MEDS: APIXABAN 5 MG TAB PO SCH (07:46)
[2021-05-13] MEDS: METOPROLOL TARTRATE 25 MG TAB PO SCH (07:46)
[2021-05-13] MEDS: LOSARTAN 25 MG TAB PO SCH (07:46)
[2021-05-13] MEDS: AMMONIUM LACTATE 12% LOTION 225 GM BTL TOPICAL SCH (07:52)
[2021-05-13] MEDS: DEXTROSE 5% IN WATER 1,000 ML IV SCH (07:52)
[2021-05-13 08:00] VITALS: BP 136/84; PULSE 76; RESP 16; TEMP 96.7
[2021-05-13 09:18] LABS: ABG Base Excess 18.2 mmol/L; ABG Oxygen Saturation 81.2 % (94-97); ABG PH 7.31 (7.35-7.45); ABG TCO2 47 mmol/L (19-24); Allen Test Performed? Yes
[2021-05-13] MEDS: IPRATROPIUM-ALBUTEROL 3 ML NEB INHALATION SCH ×2 (10:00→12:31)
[2021-05-13] MEDS: SYMBICORT 160-4.5 MCG INHALER INHALATION SCH (10:00)
[2021-05-13 10:03] LABS: ABG HCO3 45 mmol/L (21-25); ABG PCO2 90 mmHg (35-45); ABG PO2 46 mmHg (83-108)
--- NOTE | 2021-05-13 10:13 | P.PN ---
Progress Note - Text Progress Note Date: 05/13/21 A team was called on the patient because she was desatting in the low 80s while on 100% BiPAP. I evaluated the patient and she was minimally responsive where she would start groaning with sternal rub however would not open her eyes or follow any commands. Patient currently also on soft restraints. Per nurse patient mental status was like this since the morning. I reviewed patient's chart and she does have a history of end-stage COPD. When patient also came in she had moderate size right-sided pleural effusion. I review pulmonology's note who said no need for thoracentesis because this is likely due to mucous plugging and lung collapse. ABG was done on the patient and was consistent with acute on chronic hypoxic and hypercapnic respiratory failure. Patient overall has a poor prognosis. I discussed with patient's daughter over the phone about her CODE STATUS. Daughter states that patient did not really take care of her health and would have wanted nature to take its course instead of heroic measures such as CPR and intubation. Daughter made the patient DNR/DNI. Daughter was told to come in to see her mom. Nurse to make primary team aware. I anticipate daughter will make the patient comfort care. Case was also discussed with data management manager. I spent a total of 30 minutes [id number] critical care time with the patient.
--- NOTE | 2021-05-13 12:24 | P.PN ---
Subjective Progress Note Date: 05/13/21 05/11/2021 on seeing this patient for a follow-up. This is an 80-year-old female patient known having COPD, chronic atrial fibrillation/flutter, chronic diastolic heart failure with significant pulmonary hypertension, sleep apnea on no hypertension and hyperlipidemia. The patient also had a recent hos pitalization for UTI and several episodes of the lower extremity and following that the patient was sent to [facility] for further rehabilitation. She has chronic elevation of the right hemidiaphragm which has been contributing to her chronic shortness of breath. During this current admission, the patient comes in with altered mentation and hypoxemia. There was a concern for the development of a right-sided pleural effusion. For that reason, ultrasound of the chest was done and the amount of fluid was essentially small. Based on that, I repeated a CAT scan of the chest and it was essentially a right lower lobe atelectasis addition to small right-sided pleural effusion. She has a congested cough. The cough is weak. Unable to bring up much of sputum and her oral intake is quite diminished at this point in time. The patient has no fever. No chills. The pro calcitonin level has been low at 0.03 from 05/09/2021. Renal function is stable. UA was negative. COVID 19 testing was negative. The patient is currently receiving no bronchodilators. She has a maternal Symbicort. She is also maintained on prednisone burst taper. She is on long-term and to coagulation with Eliquis 5 mg by mouth twice a day. She denies any fluids at KVO at 20 mL an hour. 05/12/2021, seeing this patient for a follow-up. The patient is a debilitated 80-year-old female with advanced COPD who was having issues with right lung collapse yesterday. There was a concern of an underlying pleural effusion. Ultrasound of the chest shows minimal pleural effusion and a CAT scan of the chest showed extensive right lung atelectasis and a small right-sided pleural effusion. Based on that, the patient was offered aggressive pulmonary toileting. She was placed on BiPAP and she was also given bronchodilators and steroids. She was also started on antibiotics. A follow-up chest x-ray was done today shows significant improvement in aeration of the right lung. Nevertheless, there is some atelectatic changes and volume loss in the left. I suspect the patient is having mucous plugging contributing to her recurrent and migrating episodes of pulmonary atelectasis. The patient is known to have COPD. She has a patient with chronic atrial fibrillation/flutter. She has diastolic heart failure with significant pulmonary hypertension. She has also systemic hypertension and hyperlipidemia. On today's evaluation, she has a blood gas that showed a pH of 7.36 with a pCO2 of 97 and pO2 of 50 to and this was done while on a BiPAP. She has also blood work that showed a sodium level of 147 and a bicarb of 43 with a BUN of 27 and a creatinine of 0.6. The patient was supposed 15.7 with a hemoglobin of 13.2. 05/13/2021, the patient is still doing very poorly. As mentioned earlier, the patient had a significant collapse of the right lung related to mucous plugs pH is known to have advanced COPD. She was optimized with the use of BiPAP and bronchodilators and steroids and antibiotics. Subsequently, she had left lower lobe atelectasis which probably is again related to mucous plugs. Note that she is currently on a BiPAP and she is having difficulties even while being on a BiPAP. She has a weak cough. She is altered mentally. She is on of desaturating and she is becoming more and more restless. She is within the respiratory failure. CODE STATUS is DNR/DNI. Family has been informed. Earlier this morning, the patient was seen by the hospitalist. The patient was quite lethargic and she was groaning and moaning and she was barely arousable to sternal rubs. She was able to open of present shows some response. As mentioned, the CODE STATUS of DNR/DNI was confirmed with a daughter. As such, the patient will be kept on the medical floor and no attempts to escalate her treatment such as using intubation mechanical ventilation will be done. Blood gas this morning showed a pH of 7.31 with a pCO2 of 90 pO2 46 and this was done while the patient being on a BiPAP. As such, the prognosis extremely poor. Repeat chest x-ray was reviewed and the patient was found to have atelectasis, subsegmental the left lung base. A superimposed airspace disease was also consulted and the left lower lobe. Objective - Vital Signs Vital signs: Vital Signs Temp 96.7 F L 05/13/21 07:59 Pulse 76 01/01/22 07:59 Resp 16 05/13/21 07:59 BP 136/84 05/13/21 07:59 Pulse Ox 93 L 05/13/21 07:59 Intake & Output 05/12/21 05/13/21 05/13/21 18:59 06:59 18:59 Output Total 1350 1000 Balance -1350 -1000 Output: Urine 1350 1000 Other: Voiding Method External Catheter External Catheter External Catheter # Bowel Movements 0 - Exam General: 80-year-old female laying down in bed appears to be in mild respiratory , the patient is currently on BiPAP for respiratory support. She is arousable. The patient is curled obtunded and lethargic and overtime she is becoming more and more unresponsive and having difficulties with her level of consciousness and arousability. The breathing is extremely labored and the patient is in respiratory failure despite being on a BiPAP. HEENT: Head is atraumatic, normocephalic, pupils were equal round reactive to light and recommendation, extraocular muscle movement were intact, sclera nonict shannan, conjunctivae were pale, mucous membranes of the mouth are somewhat dry. Neck: Supple, no JVP, normal carotid upstroke bilaterally, no lymphadenopathy. Chest: Decreased breath sounds at the bases, few rhonchi, mild expiratory wheezes, no chest wall tenderness, mild intercostal retractions. Breath sounds are improved on the right, diminished on the left Heart: First heart sound is normal, second heart sounds normal, there is systolic ejection murmur 2/6 located in the left sternal border. Abdomen: Soft, nontender, nondistended, positive bowel sounds, there is no hepatosplenomegaly. Extremities: There is +2 edema, no calf tenderness, bilateral stasis dermatitis, chronic skin changes, dorsalis pedis +2 bilaterally. Neurologic examination: Patient is drowsy opens her eyes in response to repeat his sternal valves. - Labs CBC & Chem 7: 05/12/21 05:27 05/12/21 05:27 Labs: Abnormal Lab Results - Last 24 Hours (Table) 05/13/21 Range/Units 09:15 ABG pH 7.31 L (7.35-7.45) ABG pCO2 90 H* (35-45) mmHg ABG pO2 46 L* (83-108) mmHg ABG HCO3 45 H* (21-25) mmol/L ABG Total CO2 47 H (19-24) mmol/L ABG O2 Saturation 81.2 L (94-97) % Assessment and Plan Plan: 1 acute hypoxic/hypercapnic respiratory failure, failed BiPAP. The patient had significant atelectasis of the right lower lobe which was attributed to a mucous plug and the patient was given BiPAP, bronchodilators, steroids and antibiotics and she improved in terms of the aeration of the right lung. Subsequently she developed consolidation atelectasis of the left lower lobe subsegmental in nature. She is currently respiratory failure. She has signs of CO2 narcosis. She is quite obtunded. She is on a BiPAP. Not a candidate for intubation as the patient is a DNR/DNI CODE STATUS. This was confirmed by the daughter and the daughter is going to arrive to the hospital for further confirmation. She would likely need end-of-life care. Reviewed the chest x-ray. Reviewed the blood gas. 2 acute hypoxic respiratory failure in addition to a component of chronic hypercapnic the story failure 3 encephalopathy, likely metabolic, the patient has significant diminishment in level of consciousness and the patient is quite obtunded this point in time. 4 history of chronic A. fib fibrillation/flutter maintained on long-term medical condition with Eliquis 5 hypertension 6 hypothyroidism 7 vascular dementia 8 recent history of UTI, recovered 9 COPD 10 severe pulmonary hypertension 11 hyperchloremic hypernatremia Plan Patient has developed respiratory failure, did not respond to BiPAP treatment. He did not respond to aggressive pulmonary toileting measures. She continues to have acute on top of chronic hypoxic and hypercapnic respiratory failure with altered mentation, there were several of consciousness and significant respiratory failure and the patient will ultimately need to be made comfortable and proceed with end-of-life care measures. She has a DNR/DNI CODE STATUS. No further recommendations. Pulmonary standpoint. Care is very poor prognosis. Likely will pass away within next few hours from her respiratory failure. Recommend comfort care measures to the family once they arrive to the hospital.
[2021-05-13] MEDS ORDERED: DRY MOUTH SPRAY 44.3 SPRAY/44.3 ML SPRAY MUCOUS MEM PRN (13:04)
[2021-05-13] MEDS ORDERED: ATROPINE OPHTH SOLN 1% 5ML BTL SUBLINGUAL PRN (13:04)
[2021-05-13] MEDS ORDERED: ARTIFICIAL TEARS-HYPROMELLOSE DROPS 15 ML BTL BOTH EYES PRN (13:04)
[2021-05-13] MEDS ORDERED: LORazepam 2 MG/ML INJ IV PRN (13:04)
[2021-05-13] MEDS ORDERED: METOCLOPRAMIDE 5 MG/ML 2 ML VIAL IVP PRN (13:04)
[2021-05-13] MEDS ORDERED: ACETAMINOPHEN SUPPOSITORY 650 MG SUPP RECTAL PRN (13:04)
[2021-05-13] MEDS ORDERED: ONDANSETRON 4 MG/2 ML VIAL IVP PRN (13:04)
[2021-05-13] MEDS ORDERED: SODIUM CHLORIDE 0.9% 1,000 ML IV SCH (13:15)
[2021-05-13] MEDS ORDERED: SCOPOLAMINE 1.5MG/72HR PATCH TRANSDERM SCH (13:15)
[2021-05-13] MEDS ORDERED: MORPHINE SULFATE (100 MG/2 ML) 100 MG in SODIUM CHLORIDE 0.9% 100 ML IV SCH (14:00)
--- NOTE | 2021-05-13 16:01 | PN ---
PROGRESS NOTE I am covering for Dr. Lamar. DATE OF SERVICE: 05/13/2021 This 80-year-old woman was admitted with acute respiratory failure, also had CHF and COPD as well as acute right lower lobe pneumonia. The patient is extremely short of breath and chest x-ray shows which was done today showed significant lesions on the left side with some pleural effusion. The family is leaning towards comfort measures at this time. No chest pain. No palpitations. PAST MEDICAL HISTORY: Reviewed. REVIEW OF SYMPTOMS: Could not be taken. CURRENT MEDICATIONS: Reviewed and include: Artificial Tears, lispro, Lac-Hydrin, Ativan, Reglan, rest of the medication doses are noted. PHYSICAL EXAMINATION: Patient is stuporous. Pulse 73. Blood pressure 133/84, respirations 16, temperature 98.2, pulse ox 93% on BiPAP. HEENT: Conjunctivae normal. NECK: No JVD. CARDIOVASCULAR: S1, S2 muffled. RESPIRATION: Breath sounds diminished in the bases. A few scattered rhonchi and crackles. ABDOMEN: Soft, nontender. LEGS: No edema. No swelling. NERVOUS SYSTEM: No focal deficits. LABS: Reviewed. ABGs noted. ASSESSMENT: 1. Acute right lower lobe pneumonia with chronic obstructive pulmonary disease, acute exacerbation, possibly gram-negative. 2. Congestive heart failure, acute exacerbation with acute on chronic diastolic dysfunction with acute hypoxic hypercarbic respiratory failure on BiPAP. 3. Change in mental status, acute metabolic encephalopathy secondary to CO2 narcosis. 4. History of atrial fibrillation. 5. Hypertension. 6. Hypothyroidism. 7. Severe pulmonary hypertension. 8. History of vascular dementia. 9. History of recent urinary tract infection. 10.Chronic stasis dermatitis. 11.Chronic obstructive pulmonary disease. 12.Deep vein thrombosis prophylaxis. 13.GI prophylaxis. 14.Hypernatremia. 15.Increased WBC. 16.Increased MCV. 17.Obesity with body mass of 31.8. 18.FULL CODE. RECOMMENDATIONS AND DISCUSSION: I recommend to continue current medications, management and symptomatic treatment. The patient has not responded to the intensive treatment as mentioned earlier. Closely follow with Pulmonary. At this time, the family would also like to continue with comfort measures. I would recommend to stop the medications and initiate comfort measures, including morphine drip. Prognosis extremely guarded. Discussed with family at length who understands and agrees. Further recommendations to follow. MMODL / IJN: [id number] /
--- NOTE | 2021-05-13 20:07 | DS ---
DISCHARGE SUMMARY PRELIMINARY CAUSE OF : Chronic obstructive pulmonary disease. OTHER DIAGNOSES: 1. Chronic obstructive pulmonary disease, acute exacerbation, with acute hypoxic hypercarbic respiratory failure with acute right lower lobe pneumonia, possibly Gram-negative. 2. Congestive heart failure, acute exacerbation, with acute on chronic diastolic dysfunction, on BiPAP. 3. Change in mental status, metabolic encephalopathy secondary to carbon dioxide narcosis. 4. History of atrial flutter/fibrillation. 5. Hypertension. 6. Hypothyroidism. 7. History of pulmonary hypertension. 8. Vascular dementia. 9. History of recent urinary tract infection. 10.History of chronic stasis dermatitis. 11.Chronic obstructive pulmonary disease. 12.DVT prophylaxis. 13.GI prophylaxis. 14.Hypernatremia. 15.Increased white count. 16.Increased mean corpuscular volume. 17.Obesity with body mass index of 31.8. 18.NO CODE, NO CPR, NO VENT. 19.Comfort measures. HISTORY OF PRESENT ILLNESS: This 80-year-old woman with past medical history of multiple medical problems, being followed by Dr. Lamar in the outpatient setting, was admitted with shortness of breath which was probably multifactorial. The patient had COPD and CHF, acute exacerbation, with right lower lobe pneumonia. The patient's condition did not improve despite intensive treatment, bronchodilators and antibiotics. The patient was seen by Pulmonary during the hospitalization. The patient remained on BiPAP, confused, and the case was discussed with the family at length. Family opted for comfort measures. Comfort measures were pursued. The patient because of above-mentioned multiple complex medical issues. The prognosis was extremely guarded throughout the hospitalization. Please refer to the multiple progress notes, history and physical and consultation notes for further details. MMODL / IJN: [id number] /
== END 2021-05-13 14:53 | disposition expired | DRG 291 ==
LOC: EC 21:58 → 4SSUR 05-08 00:36
PROVIDERS: ADMIT Internal Medicine; ATTEND Internal Medicine
PROC: 5A0935A Assistance with Respiratory Ventilation, Less than 24 Consecutive Hours, High Flow/Velocity Cannula (ICD-10-PCS; 2021-05-09)
PROC: 5A09457 Assistance with Respiratory Ventilation, 24-96 Consecutive Hours, Continuous Positive Airway Pressure (ICD-10-PCS; principal; 2021-05-12)
DX: I11.0 Hypertensive heart disease with heart failure (principal); J15.6 Pneumonia due to other Gram-negative bacteria; G93.41 Metabolic encephalopathy; I50.33 Acute on chronic diastolic (congestive) heart failure; J96.21 Acute and chronic respiratory failure with hypoxia; J96.22 Acute and chronic respiratory failure with hypercapnia; J44.0 Chronic obstructive pulmonary disease with (acute) lower respiratory infection; E87.0 Hyperosmolality and hypernatremia; I48.92 Unspecified atrial flutter; J44.1 Chronic obstructive pulmonary disease with (acute) exacerbation; J98.11 Atelectasis; L03.115 Cellulitis of right lower limb; L03.116 Cellulitis of left lower limb; D75.89 Other specified diseases of blood and blood-forming organs; E11.9 Type 2 diabetes mellitus without complications; E66.01 Morbid (severe) obesity due to excess calories; Z51.5 Encounter for palliative care; Z68.31 Body mass index [BMI] 31.0-31.9, adult; Z20.822 Contact with and (suspected) exposure to COVID-19; Z66 Do not resuscitate; F01.50 Vascular dementia, unspecified severity, without behavioral disturbance, psychotic disturbance, mood disturbance, and anxiety; F32.A Depression, unspecified; E03.9 Hypothyroidism, unspecified; F41.9 Anxiety disorder, unspecified; G47.33 Obstructive sleep apnea (adult) (pediatric); E78.5 Hyperlipidemia, unspecified; I07.1 Rheumatic tricuspid insufficiency; I27.20 Pulmonary hypertension, unspecified; I48.0 Paroxysmal atrial fibrillation; I87.2 Venous insufficiency (chronic) (peripheral); I87.8 Other specified disorders of veins; I89.0 Lymphedema, not elsewhere classified; J98.6 Disorders of diaphragm; L30.9 Dermatitis, unspecified; Z78.1 Physical restraint status; Z79.01 Long term (current) use of anticoagulants; Z79.51 Long term (current) use of inhaled steroids; Z79.52 Long term (current) use of systemic steroids; Z79.890 Hormone replacement therapy; Z79.899 Other long term (current) drug therapy; Z90.710 Acquired absence of both cervix and uterus; Z96.651 Presence of right artificial knee joint; Z88.6 Allergy status to analgesic agent; Z88.1 Allergy status to other antibiotic agents; Z88.2 Allergy status to sulfonamides; Z88.8 Allergy status to other drugs, medicaments and biological substances; Z86.14 Personal history of Methicillin resistant Staphylococcus aureus infection
CPT/HCPCS: 36415; 36600; 70450; 71045; 71260; 76604; 80053; 81003; 82565; 82607; 82746; 82805; 83735; 83880; 83921; 84145; 84425; 84484; 84520; 85025; 85610; 85730; 87635; 93005; 93306; 93970; 94640; 94660; 94760; 99285